=== PATIENT | female | born 1935 | race Caucasian/White ===

== ENCOUNTER → 2018-01-10 11:00 | Outpatient (CLI) | payer MEDICARE, SELFPAY | PROVIDERS: PCP Specialist/Technologist Athletic Trainer; Visit Provider Nurse Practitioner Family | DX: Z45.018 Encounter for adjustment and management of other part of cardiac pacemaker (principal); I48.0 Paroxysmal atrial fibrillation; I49.5 Sick sinus syndrome; Z79.01 Long term (current) use of anticoagulants; I12.9 Hypertensive chronic kidney disease with stage 1 through stage 4 chronic kidney disease, or unspecified chronic kidney disease; N18.3 Chronic kidney disease, stage 3 (moderate) | CPT/HCPCS: 93280; 99213 ==

== ENCOUNTER → 2018-02-20 10:46 | Outpatient (BNVA) | payer MEDICARE, SELFPAY | PROVIDERS: Visit Provider Internal Medicine Interventional Cardiology | DX: Z95.0 Presence of cardiac pacemaker (principal); I48.91 Unspecified atrial fibrillation; I42.9 Cardiomyopathy, unspecified; I27.20 Pulmonary hypertension, unspecified; I12.9 Hypertensive chronic kidney disease with stage 1 through stage 4 chronic kidney disease, or unspecified chronic kidney disease | CPT/HCPCS: 99213 ==

== ENCOUNTER 2018-04-26 10:54 | Outpatient (REF) | payer MEDICARE, SELFPAY ==
[2018-04-26 20:12] LABS: Anion Gap 9.4 mmol/L (3-11); BUN 35 mg/dL (7-18); CO2 26.6 mmol/L (21.0-32.0); CREATININE 1.31 mg/dL (0.55-1.02); Chloride 105 mmol/L (98-107); Estimated GFR 38.87 (mL/min/1.73m2); Glucose 63 mg/dL (70-100); Potassium 3.7 mmol/L (3.5-5.1); Sodium 141 mmol/L (136-145)
== END 2018-04-26 11:14 ==
LOC: NCHCN 10:54
PROVIDERS: PCP Specialist/Technologist Athletic Trainer; Visit Provider Specialist/Technologist Athletic Trainer
DX: N18.3 Chronic kidney disease, stage 3 (moderate) (principal); I10 Essential (primary) hypertension; J45.40 Moderate persistent asthma, uncomplicated; B86 Scabies
CPT/HCPCS: 80048

== ENCOUNTER 2018-05-25 10:02 | Outpatient (REF) | payer MEDICARE, SELFPAY ==
--- NOTE | 2018-05-25 09:15 | SKI_PTH ---
PATIENT: Antonia Win LOC: [facility] U#:[id number] AGE/SX: 83/F ROOM: RE05/25/[address]: Fran Self : 1935 BED: DIS: 05/25/2018 SPEC #: [id number] RECD: 05/26/18 12:57 STATUS: FELICIA REQ #: [id number] ELBA: 05/25/18 09:[address]: Fran Self DEPT: Surgical Specimen RECD BY: Teresita Maldonado Tissues: 1 - SKIN BIOPSY(SHAVE/PUNCH) Procedures: SKIN LEVEL 4 Comments: [id number]
== END 2018-05-25 10:22 ==
LOC: NCHCN 10:02
PROVIDERS: PCP Specialist/Technologist Athletic Trainer; Visit Provider Specialist/Technologist Athletic Trainer
DX: L98.8 Other specified disorders of the skin and subcutaneous tissue (principal); L12.0 Bullous pemphigoid
CPT/HCPCS: 88305

== ENCOUNTER → 2018-07-04 11:17 | Outpatient (BNVA) | payer MEDICARE, SELFPAY | PROVIDERS: PCP Specialist/Technologist Athletic Trainer; Visit Provider Nurse Practitioner Primary Care | DX: I49.5 Sick sinus syndrome (principal); I48.0 Paroxysmal atrial fibrillation; I42.9 Cardiomyopathy, unspecified; I27.20 Pulmonary hypertension, unspecified; I12.9 Hypertensive chronic kidney disease with stage 1 through stage 4 chronic kidney disease, or unspecified chronic kidney disease; R55 Syncope and collapse; Z45.018 Encounter for adjustment and management of other part of cardiac pacemaker; N18.3 Chronic kidney disease, stage 3 (moderate) | CPT/HCPCS: 93288; 99214 ==

== ENCOUNTER 2018-08-14 10:35 | Outpatient (CLI) | payer MEDICARE, SELFPAY | END 2018-08-14 10:55 | PROVIDERS: PCP Specialist/Technologist Athletic Trainer; Visit Provider Internal Medicine Interventional Cardiology | DX: Z95.0 Presence of cardiac pacemaker (principal); I48.91 Unspecified atrial fibrillation; I42.9 Cardiomyopathy, unspecified; I27.20 Pulmonary hypertension, unspecified; I10 Essential (primary) hypertension | CPT/HCPCS: 93005; 93010; 99213 ==

== ENCOUNTER 2018-09-01 08:47 | Inpatient (IN) | payer MEDICARE, SELFPAY ==
[2018-09-01] VITALS (88 sets, daily range): BP systolic 105–164; BP diastolic 44–90; PULSE 51–108; RESP 4–34; TEMP 35.6–37.1; O2SAT 84–97
[2018-09-01] MEDS: Normal Saline Flush 10 ML SYR IVP (09:00)
--- NOTE | 2018-09-01 09:09 | ED.GENADUL_ITS ---
Discharge Plan Disposition Patient Disposition: [facility] INPATIENT Condition: Fair Discharge Details Chief Complaint: SOB Clinical Impression: Pneumonia, Acute exacerbation of congestive heart failure, Hypercalcemia Admit Date/Time: 09/01/18 11:46 Admit Provider: Erasmo Woods Attending Provider: Erasmo Woods Primary Care Provider: Fran Self ED Provider: Charis Evans Medical Decision Making 0910 -- 83-year-old female with history of thoracic aortic aneurysm repair, asthma, CHF, COPD, pacemaker and defibrillator who presents with shortness of breath for 1 week, worse with exertion and associated with dry cough. She also admits to left-sided chest pressure. She denies fever. Oxygen saturation high 80s on room air. Patient in mild to moderate respiratory distress with tachypnea and accessory muscle use and speaking in 3-4 word sent ences. She has coarse breath sounds with wheezing and rhonchi to the right chest. No lower extremity edema. EKG notes a rate of 78 and paced and no acute ST findings. Differential diagnosis includes pneumonia, acute CHF exacerbation, acute COPD exacerbation, NM. Will place an IV, labs, chest x-ray, DuoNeb, steroids and reassess. Advance directives from pcp office note pt is DNI, not DNR and wants CPR. 1000 -- Pt feels a little better. Still speaking in 4-5 word sentences. Breath sounds improved, still with scattered wheezing right chest. Patient admits to feeling more short of breath while receiving neb treatment. Will give a second albuterol with aerogen jet mist. Labs and imaging reviewed. White blood cell count 12. Calcium 11.6. BNP 2537. Troponin negative. Chest x-ray notes a right-sided pneumonia. Also question acute CHF along with elevated BNP. Will give another bolus 250 cc fluid for hypercalcemia. Patient demonstrates no altered mental status at this time. O2 sat 97% on 2 L. Patient taken off O2 and O2 sat 92%. Patient takes 20 mg of Lasix every other day, last taken yesterday. Will give a dose of 40 mg Lasix IV. Rocephin and Zithromax ordered. Will admit for continued nebs, steroids and recheck of her calcium. 1030 -- patient denies significant relief with second neb treatment. She still has some labored breathing and speaking in short sentences. Breath sounds improved. O2 sat 91% on room air. She does appear more comfortable but will still plan for admission for continued nebs and observation. 1115 -- d/w hospitalist - accepts pt for admission. Medical Records Medical records reviewed: Yes I reviewed the patient's medical records. Imaging Data Radiologic Study: Radiologist's impression: PA AND LATERAL CHEST: The current examination is compared with most recent film of 10/09/17 and previous film of 03/05/16. Heart is enlarged. There is a transvenous cardiac pacemaker in position. There are sternal sutures and mediastinal vascular clips. In comparison with the previous examination, there appears to be increased radiodensity involving portions of the right lung with a patchy or fluffy appearance. The findings are suspicious for pneumonia. Asymmetric CHF not excluded. No gross pleural effusion is seen. CONCLUSION: Findings raising the possibility of right sided pneumonia. Lab Data Lab results reviewed: Yes I reviewed the patient's lab results. Laboratory Tests Range/Units 09/01/18 09/01/18 09:00 09:00 WBC (4.4-10.8) k/cumm 12.94 H RBC (4.00-5.20) m/cumm 4.39 Hgb (12.0-15.5) g/dL 12.6 Hct (36.0-46.0) % 40.9 MCV (80-95) fL 93.2 MCH (27.0-33.0) pg 28.7 MCHC (32.0-36.0) g/dL 30.8 L RDW (11.7-14.6) % 15.6 H Plt Count (130-400) x1000/uL 395 MPV (8.0-11.0) fL 9.1 Immature Gran % 0.5 Neutrophils % 84.3 Lymphocytes % 7.8 Monocytes % 5.3 Eosinophils % 1.9 Basophils % 0.2 Absolute Neutrophils (1.2-6.7) k/cumm 10.91 H Absolute Lymphocytes (1.2-3.4) k/cumm 1.01 L Absolute Monocytes (0.11-0.7) k/cumm 0.69 Absolute Eosinophils (0.0-0.7) k/cumm 0.25 Absolute Basophils (0.0-0.2) k/cumm 0.03 Sodium (136-145) mmol/L 138 Potassium (3.5-5.1) mmol/L 4.0 Chloride (98-107) mmol/L 101 Carbon Dioxide (21.0-32.0) mmol/L 23.5 Anion Gap (3-11) mmol/L 13.5 H BUN (7-18) mg/dL 37 H Creatinine (0.55-1.02) mg/dL 1.97 H Estimated GFR/1.73 m2 (mL/min/1.73m2) 24.27 Glucose (70-100) mg/dL 86 Calcium (8.5-10.1) mg/dL 11.6 H* Magnesium (1.8-2.4) mg/dL 2.2 Total Bilirubin (0.2-1.0) mg/dL 0.4 AST (15-37) U/L 28 ALT (12-78) U/L 15 Alkaline Phosphatase (46-116) U/L 130 H Troponin I (0.00-0.06) ng/mL < 0.02 NT-Pro-B Natriuret Pep ( - 299) pg/mL 2537 H Total Protein (6.4-8.2) g/dL 8.8 H Albumin (3.4-5.0) g/dL 2.6 L ECG Data Attestation: I personally reviewed and interpreted this ECG (s) as follows: Interpretation: Rate of 78, paced. No acute ST findings. QTc 435. QRS 106. HPI General Mode of arrival: ambulatory . Date/Time Provider Initiated Documentation: 09/01/18 08:55 . Limitations to Documentation: no limitations . Information obtained by: patient . HPI Narrative: Patient is a an 83-year-old female with a history of thoracic aortic aneurysm repair, asthma, CHF, COPD, hypertension, atrial fibrillation, pacemaker and a fibrillator who presents with shortness of breath for the past 4 days. She states this is worse with exertion. She also admits to dry cough. She also admits to intermittent left- sided chest pressure. She denies any fever. States she has been eating and drinking normally. She states she was recently on antibiotics for a diffuse body rash that she is unsure of the diagnosis but was seen by Dr. Colindres and thinks it was possibly bullous pemphigoid. She was also on 4 rounds of steroids recently and now is receiving one steroid injection once weekly. She is unable to receive the flu shot due to allergic reaction to eggs. Related Data Home Medications Medication Instructions Recorded Confirmed Eliquis 2.5 mg PO BID tab-cap 09/17/16 09/01/18 Flovent HFA 110 mcg INHALATION Q4H PRN inhaler 09/17/16 09/01/18 Lamin-24 100 - 300 mg PO BID tab-cap 09/17/16 09/01/18 amiodarone 100 mg PO DAILY tab-cap 09/17/16 09/01/18 clonidine HCl 0.1 mg PO BID tab-cap 09/17/16 09/01/18 lisinopril 40 mg PO DAILY tab-cap 09/17/16 09/01/18 metoprolol tartrate 25 mg PO BID tab-cap 09/17/16 09/01/18 potassium chloride [Klor-Con 10] 10 meq PO DAILY tab-cap 09/17/16 09/01/18 silver sulfadiazine [Thermazene] 50 gm TOPICAL DAILY tube 09/17/16 09/01/18 furosemide 20 mg tablet 20 mg PO Q OTHER DAY tab-cap 08/14/18 09/01/18 betamethasone dipropionate 1 applic TOPICAL BID 09/01/18 09/01/18 calcium carbonate [Calcium 600] 600 mg PO BID 09/01/18 09/01/18 cholecalciferol (vitamin D3) 2,000 unit PO DAILY 09/01/18 09/01/18 [Vitamin D3] fluticasone furoate-vilanterol 1 inh INHALATION DAILY 09/01/18 09/01/18 [Breo Ellipta] hydralazine 10 mg PO BID 09/01/18 09/01/18 ivermectin 12 mg PO DIRECTED 09/01/18 09/01/18 Allergies Allergy/AdvReac Type Severity Reaction Status Date / Time adhesive Allergy Unverified 09/01/18 08:58 gluten Allergy Unverified 09/01/18 08:58 pork derived (porcine) Allergy Unverified 09/01/18 08:58 coumadin Allergy Uncoded 09/01/18 08:58 dairy Allergy Uncoded 09/01/18 08:58 eggs Allergy Uncoded 09/01/18 08:58 flu vaccine Allergy Uncoded 09/01/18 08:58 tape Allergy Uncoded 09/01/18 08:58 General Stated Complaint: SOB WESLEY: 2 Review of Systems Review of Systems All systems reviewed & are unremarkable except as noted in HPI and below Constitutional Reports as per HPI, Denies chills and Denies fever(s) Eyes Denies blurry vision ENT Denies dizziness, Denies sore throat and Denies throat swelling Cardiovascular Reports chest pain and Reports dyspnea Respiratory Denies cough and Reports dyspnea Gastrointestinal Denies abdominal pain, Denies diarrhea and Denies vomiting Genitourinary Denies hematuria and Denies dysuria Musculoskeletal Denies back pain and Denies numbness Integumentary/Breasts Denies lesions and Denies rash Neurologic Denies dizziness, Denies focal weakness and Denies numbness Allergic/Immunologic Denies throat swelling [facility] Medical History Chronic kidney disease (Acute) Asthma (Chronic) Atrial fibrillation (Chronic) CHF (congestive heart failure) (Chronic) COPD (chronic obstructive pulmonary disease) (Chronic) Depression (Chronic) HTN (hypertension) (Chronic) Surgical History AICD (automatic cardioverter/defibrillator) present (Acute) H/O thoracic aortic aneurysm repair (Acute) Pacemaker (Acute) Social History Smoking/Tobacco Use Status: Never Alcohol Intake: never Substance use type: does not use Do you feel safe at home: Yes Do you feel safe in your relationship?: Yes Exam Const General: cooperative and acute distress respiratory (mild-moderate) [facility] Head: normal to inspection Face and sinus: normal facial exam Mouth: mucous membranes dry Throat: postnasal drainage (thick white mucous) Eyes General: appearance normal, both eyes and all related structures EOM: EOM intact bilaterally Neck Neck: normal visual inspection and No submandibular swelling Lymphatic: no lymphadenopathy noted Chest Chest: normal inspection of the chest and no tenderness Resp Effort & Inspection: normal respiratory effort and able to speak in complete sentences (speaks in 4-5 word sentences) Auscultation: rhonchi right upper and wheezes right lower and right upper Cardio Rate: regular rate Rhythm: regular rhythm GI Inspection: normal to inspection Palpation: soft, not firm, not rigid and nontender Auscultation: normal bowel sounds Skin General skin exam: no rashes or lesions noted Neuro General: alert, awake and oriented x3 Cognition: normal cognition Speech: speech normal Motor: muscle tone normal throughout Sensory Exam: no sensory deficits noted Extrem General: normal to inspection, full ROM and no edema Psych Appearance: grossly normal Mental Status: mental status grossly normal Speech and Movement: speech and movement normal Affect: normal affect Course Vital Signs Temperature 97.9 F 09/01/18 08:50 Pulse 81 09/01/18 08:50 Respiratory Rate 26 H 09/01/18 08:50 Blood Pressure 146/65 H 09/01/18 08:50 Pulse Oximetry 92 L 09/01/18 08:50 Temperature 97.9 F 09/01/18 08:50 Temperature Source Temporal Artery Scan 09/01/18 08:50 Pulse 81 09/01/18 08:50 Respiratory Rate 26 H 09/01/18 08:50 Respiratory Effort 09/01/18 08:55 Blood Pressure 146/65 H 09/01/18 08:50 Pulse Oximetry 92 L 09/01/18 08:50 Oxygen Delivery Method Room Air 09/01/18 08:50 Oxygen Flow Rate 0 09/01/18 08:50 Pain Level 0 09/01/18 08:50
[2018-09-01] MEDS: Albuterol/Ipratropium 3 ML UPD VIAL UPD (09:16)
[2018-09-01] MEDS: methylPREDNISolone SUCC 125 MG VIAL IVP (09:18)
[2018-09-01 09:21] LABS: Abs Immature Grans 0.06 k/cumm (0.0-0.09); Absolute Lymphocyte Count 1.01 k/cumm (1.2-3.4); Absolute Monocyte Count 0.69 k/cumm (0.11-0.7); Basophils % 0.2; Eosinophils % 1.9; HCT 40.9 % (36.0-46.0); HGB 12.6 g/dL (12.0-15.5); Immature Grans % 0.5; Lymphocytes % 7.8; Mean Corp. HGB Concentration 30.8 g/dL (32.0-36.0); Mean Corpuscular Hemoglobin 28.7 pg (27.0-33.0); Mean Corpuscular Volume 93.2 fL (80-95); Mean Platelet Volume 9.1 fL (8.0-11.0); Monocytes % 5.3; Neutrophils % 84.3; Platelet Count 395 x1000/uL (130-400); RBC 4.39 m/cumm (4.00-5.20); RBC Distribution Width 15.6 % (11.7-14.6); White Blood Cell Count 12.94 k/cumm (4.4-10.8)
[2018-09-01 09:22] LABS: Absolute Basophil Count 0.03 k/cumm (0.0-0.2); Absolute Eosinophil Count 0.25 k/cumm (0.0-0.7); Absolute Neutrophil Count 10.91 k/cumm (1.2-6.7)
[2018-09-01 09:40] LABS: ALT 15 U/L (12-78); AST 28 U/L (15-37); Albumin 2.6 g/dL (3.4-5.0); Alkaline Phosphatase 130 U/L (46-116); Anion Gap 13.5 mmol/L (3-11); BUN 37 mg/dL (7-18); Bilirubin, Total 0.4 mg/dL (0.2-1.0); CO2 23.5 mmol/L (21.0-32.0); CREATININE 1.97 mg/dL (0.55-1.02); Chloride 101 mmol/L (98-107); Estimated GFR 24.27 (mL/min/1.73m2); Glucose 86 mg/dL (70-100); Magnesium 2.2 mg/dL (1.8-2.4); NT-proBNP 2537 pg/mL; Sodium 138 mmol/L (136-145); Total Protein 8.8 g/dL (6.4-8.2)
[2018-09-01 09:48] LABS: Calcium 11.6 mg/dL (8.5-10.1); Troponin I < 0.02 ng/mL (0.00-0.06)
[2018-09-01] MEDS: Normal Saline 250 ML IV (10:13)
[2018-09-01] MEDS: Furosemide 40 MG/4 ML VIAL IVP (10:18)
[2018-09-01] MEDS: cefTRIAXone 1 GM/50 ML BAG IVPB (10:19)
[2018-09-01] MEDS: Albuterol 2.5 MG/3 ML INH SOLN VIAL (10:31)
[2018-09-01] MEDS: AZITHROMYCIN 500 MG in Normal Saline 250 ML 250 MG IVPB (10:54)
--- NOTE | 2018-09-01 12:02 | PDOC.ERCMPRO ---
Care Management Progress Note 09/01-Antonia is being admitted for pneumonia and CHF. This CM met with Antonia. Antonia is an 83 year old female who lives with her daughter Orly in [place]. Antonia is normally independent, no DME and no services. Antonia does not drive. Fran Self is her PCP. Patient has Medicare and AARP. Antonia has advance directives on file and daughter Orly is her DPOA. Antonia has two steps to get into the house. Her daughter Orly has moved her to the first floor so now everything she needs is on one floor. Discussed Palliative Care Consult with Antonia. Antonia would like to discuss with her daughter Orly. No services or equipment are anticipated at discharge. Inpatient Care Management will follow.
--- NOTE | 2018-09-01 15:45 | HPE_ITS ---
Date of service: 09/01/18 Time of Service: 15:27 Assessment and Plan (1) Pneumonia: Current visit: Yes Status: Acute Likely diagnosis of pneumonia based on symptoms and imaging. Will initiate antibiotic therapy for likely CAP. If antibiotic failure consider broadening regimen as Mrs. Win visits her who is a [facility] patient on a daily basis. Initiated therapy with ceftriaxone and azithromycin. Monitor QT closely as patient is also on amiodarone chronically. Check blood cultures, duo nebs on an as-needed basis. (2) ZAFAR (acute kidney injury): Current visit: Yes Status: Acute ZAFAR in setting of CKD, potentially prerenal in etiology in setting of acute illness. Patient did receive IV Lasix in the ED - will attempt to hydrate very gently in the setting of mild underlying CHF, and monitor volume status carefully. Renally dose medications, and avoid nephrotoxins. (3) Hypertension: Current visit: Yes Status: Chronic (4) PAF (paroxysmal atrial fibrillation): Current visit: Yes Status: Chronic Maintained on antiarrhythmic therapy with amiodarone, as well as BB therapy. Continue anticoagulation with apixaban - patient has an elevated creatinine and is under 60 kg, qualifies for decreased dosing. Maintain on telemetry for now. 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 Elevated BNP, but patient does not appear to be grossly volume overloaded by exam or imaging (although with asymmetric CHF being a possibility). Will continue home regimen of furosemide, but hold YOBANY-I in s etting of ZAFAR. Continue beta-eden as well. (6) DVT prophylaxis: Current visit: Yes Status: Acute Currently on anticoagulation with low-dose apixaban. Initiate PPI therapy for GI prophylaxis as well. (7) Advance directive on file: Current visit: Yes Status: Acute Confirmed DNI, but patient would like resuscitation in the form of CPR. Will discuss further when family is available as well. History of Present Illness Narrative: Pleasant 83-year-old woman with a prior history of asthma, CHF, and PAF, being admitted from [facility] emergency departments with diagnosis of pneumonia and ZAFAR. Mrs. Win has a past medical history significant for CHF with an LVEF of 45 to 50%, as well as mention of diastolic dysfunction by prior echo. She has a history of paroxysmal AFib currently in sinus rhythm while maintained on antiarrhythmic therapy with amiodarone, and on chronic anticoagulation. Her other history includes tachybradycardia syndrome s/p dual-chamber PPM placement in 2016, CKD, asthma, HTN, and PHTN. Review of her labs indicate a mild hypercalcemia in the past, unknown of the origin or prior work-up of this. The patient presented to the ED with reported shortness of breath, starting approximately 5 days ago. She also associated her dyspnea with a dry cough. Upon presentation to the ED she was found to be hypoxic, tachypneic, and tachycardic. Her EKG was found to be nonischemic, and her initial troponin was undetectable. Her work-up was remarkable for evidence of a right-sided infiltrate by chest x-ray, interpreted as likely pneumonia, as well as a mild leukocytosis and elevated creatinine from baseline. Her calcium was also noted to be high. She was referred for admission for further evaluation and treatment. Review of Systems Review of Systems All systems reviewed & are unremarkable except as noted in HPI and below PFSH Medical History Hypercalcemia (Chronic) CHF (congestive heart failure) (Chronic) Presence of permanent cardiac pacemaker (Chronic) PAF (paroxysmal atrial fibrillation) (Chronic) Hypertension (Chronic) Pulmonary hypertension (Chronic) Asthma (Chronic) CKD (chronic kidney disease) (Chronic) Chronic kidney disease (Acute) Asthma (Chronic) Atrial fibrillation (Chronic) CHF (congestive heart failure) (Chronic) COPD (chronic obstructive pulmonary disease) (Chronic) Depression (Chronic) HTN (hypertension) (Chronic) Surgical History History of thoracic aortic aneurysm repair (Chronic) AICD (automatic cardioverter/defibrillator) present (Acute) H/O thoracic aortic aneurysm repair (Acute) Pacemaker (Acute) Social History Smoking/Tobacco Use Status: Never Alcohol Intake: never Substance use type: does not use Do you feel safe at home: Yes Do you feel safe in your relationship?: Yes Meds Home Medications Medication Instructions Recorded Confirmed Type Eliquis 2.5 mg PO BID tab-cap 09/17/16 09/01/18 History Flovent HFA 110 mcg INHALATION Q4H PRN inhaler 09/17/16 09/01/18 History Lamin-24 100 - 300 mg PO BID tab-cap 09/17/16 09/01/18 History amiodarone 100 mg PO DAILY tab-cap 09/17/16 09/01/18 History clonidine HCl 0.1 mg PO BID tab-cap 09/17/16 09/01/18 History lisinopril 40 mg PO DAILY tab-cap 09/17/16 09/01/18 History metoprolol tartrate 25 mg PO BID tab-cap 09/17/16 09/01/18 History potassium chloride [Klor-Con 10] 10 meq PO DAILY tab-cap 09/17/16 09/01/18 History silver sulfadiazine [Thermazene] 50 gm TOPICAL DAILY tube 09/17/16 09/01/18 History furosemide 20 mg tablet 20 mg PO Q OTHER DAY tab-cap 08/14/18 09/01/18 History betamethasone dipropionate 1 applic TOPICAL BID 09/01/18 09/01/18 History calcium carbonate [Calcium 600] 600 mg PO BID 09/01/18 09/01/18 History cholecalciferol (vitamin D3) 2,000 unit PO DAILY 09/01/18 09/01/18 History [Vitamin D3] fluticasone furoate-vilanterol 1 inh INHALATION DAILY 09/01/18 09/01/18 History [Breo Ellipta] hydralazine 10 mg PO BID 09/01/18 09/01/18 History ivermectin 12 mg PO DIRECTED 09/01/18 09/01/18 History Allergies Allergy/AdvReac Type Severity Reaction Status Date / Time adhesive Allergy Unverified 09/01/18 08:58 gluten Allergy Unverified 09/01/18 08:58 pork derived (porcine) Allergy Unverified 09/01/18 08:58 coumadin Allergy Uncoded 09/01/18 08:58 dairy Allergy Uncoded 09/01/18 08:58 eggs Allergy Uncoded 09/01/18 08:58 flu vaccine Allergy Uncoded 09/01/18 08:58 tape Allergy Uncoded 09/01/18 08:58 Exam Narrative Exam Narrative: General: Patient appears comfortable, AAOX3, NAD Neck: Supple CV: Regular, nontachycardic, S1S2, 3/6 LLSB murmurs. Pulmonary: Area of decreased breath sounds with mild crackles and rhonchi at the right base Abdomen: + Bowel Sounds, soft, nontender, nondistended Vascular: No lower extremity edema Neurologic: CN II-XII grossly intact. No focal deficits. Psych: Normal mood and affect. Results Labs : 09/01/18 09:00 09/01/18 09:00 Laboratory Results - last 24 hr 09/01/18 09/01/18 09:00 09:00 WBC 12.94 H RBC 4.39 Hgb 12.6 Hct 40.9 MCV 93.2 MCH 28.7 MCHC 30.8 L RDW 15.6 H Plt Count 395 MPV 9.1 Immature Gran % 0.5 Neutrophils % 84.3 Lymphocytes % 7.8 Monocytes % 5.3 Eosinophils % 1.9 Basophils % 0.2 Absolute Neutrophils 10.91 H Absolute Lymphocytes 1.01 L Absolute Monocytes 0.69 Absolute Eosinophils 0.25 Absolute Basophils 0.03 Sodium 138 Potassium 4.0 Chloride 101 Carbon Dioxide 23.5 Anion Gap 13.5 H BUN 37 H Creatinine 1.97 H Estimated GFR/1.73 m2 24.27 Glucose 86 Calcium 11.6 H* Magnesium 2.2 Total Bilirubin 0.4 AST 28 ALT 15 Alkaline Phosphatase 130 H Troponin I < 0.02 NT-Pro-B Natriuret Pep 2537 H Total Protein 8.8 H Albumin 2.6 L Last Vital Signs Temp 37.1 C 09/01/18 13:20 Pulse 85 09/01/18 13:20 Resp 26 H 09/01/18 13:30 BP 137/45 L 09/01/18 13:20 Pulse Ox 94 L 09/01/18 13:30
[2018-09-01] MEDS: Normal Saline 1,000 ML 75 ML IV (17:34)
[2018-09-01] MEDS: DOXYCYCLINE 100 MG in Normal Saline 100 ML IVPB (17:52)
[2018-09-01] MEDS: hydrALAZINE 25 MG TAB 10 MG PO (20:20)
[2018-09-01] MEDS: cloNIDine 0.1 MG TAB PO (20:20)
[2018-09-01] MEDS: Metoprolol 25 MG TAB PO (20:20)
[2018-09-01] MEDS: Apixaban 2.5 MG TAB PO (20:20)
[2018-09-01] MEDS: Acetaminophen 325 MG TAB PO (23:21)
[2018-09-02] VITALS (27 sets, daily range): BP systolic 118–178; BP diastolic 53–84; PULSE 60–97; RESP 16–32; TEMP 36.4–37.8; O2SAT 85–93
[2018-09-02] MEDS: DOXYCYCLINE 100 MG in Normal Saline 100 ML IVPB ×2 (05:39→18:03)
[2018-09-02 06:44] LABS: Anion Gap 12.5 mmol/L (3-11); BUN 49 mg/dL (7-18); CO2 20.5 mmol/L (21.0-32.0); CREATININE 2.11 mg/dL (0.55-1.02); Calcium 10.5 mg/dL (8.5-10.1); Chloride 103 mmol/L (98-107); Estimated GFR 22.42 (mL/min/1.73m2); Glucose 118 mg/dL (70-100); Potassium 4.5 mmol/L (3.5-5.1); Sodium 136 mmol/L (136-145)
[2018-09-02 06:45] LABS: Abs Immature Grans 0.06 k/cumm (0.0-0.09); Absolute Lymphocyte Count 0.84 k/cumm (1.2-3.4); Absolute Monocyte Count 0.41 k/cumm (0.11-0.7); Basophils % 0.1; Eosinophils % 0.1; HCT 37.4 % (36.0-46.0); HGB 11.7 g/dL (12.0-15.5); Immature Grans % 0.3; Lymphocytes % 4.5; Mean Corp. HGB Concentration 31.3 g/dL (32.0-36.0); Mean Corpuscular Hemoglobin 28.8 pg (27.0-33.0); Mean Corpuscular Volume 92.1 fL (80-95); Mean Platelet Volume 9.1 fL (8.0-11.0); Monocytes % 2.2; Neutrophils % 92.8; Platelet Count 382 x1000/uL (130-400); RBC 4.06 m/cumm (4.00-5.20); RBC Distribution Width 15.4 % (11.7-14.6); White Blood Cell Count 18.59 k/cumm (4.4-10.8)
[2018-09-02 06:49] LABS: Absolute Basophil Count 0.02 k/cumm (0.0-0.2); Absolute Eosinophil Count 0.02 k/cumm (0.0-0.7); Absolute Neutrophil Count 17.25 k/cumm (1.2-6.7)
[2018-09-02] MEDS: cefTRIAXone 1 GM/50 ML BAG IVPB (07:02)
[2018-09-02] MEDS: Apixaban 2.5 MG TAB PO ×2 (09:05→19:43)
[2018-09-02] MEDS: cloNIDine 0.1 MG TAB PO ×2 (09:05→19:43)
[2018-09-02] MEDS: Normal Saline Flush 10 ML SYR IVP ×3 (09:05→18:03)
[2018-09-02] MEDS: Calcium Carbonate 1.5 GM TAB PO (09:05)
[2018-09-02] MEDS: hydrALAZINE 10 MG TAB (09:05)
[2018-09-02] MEDS: Pantoprazole 40 MG VIAL IVP (09:05)
[2018-09-02] MEDS: Metoprolol 25 MG TAB PO ×2 (09:06→19:43)
[2018-09-02] MEDS: Amiodarone 200 MG TAB 100 MG PO (09:06)
--- NOTE | 2018-09-02 10:18 | PDOC.CMIN ---
Care Management Initial Assess REASON FOR HOSPITALIZATION:: Pneumonia, CHF PAST MEDICAL HISTORY/PAST SURGICAL HISTORY:: ZAFAR, Pneumonia, DVT, Hypercalcemia, CHF, permanent cardiac pacemaker, PAF, thoracic aortic aneurysm repair, hypertension, pulmonary hypertension, asthma, CKD, asthma, Depression, COPD, Afib PREVIOUS FUNCTIONAL STATUS/SOCIAL/FAMILY SUPPORTS:: Antonia resides with her daughter Orly in [place], [place] she has a room on ground level and two steps into her home. Her , Adolfo resides at [facility] in [place], [place]. Antonia sees him almost daily and reports he suffers from advanced dementia and currently believes he is living on the farm he [place] up on at [age] years old. Antonia is normally independent, no DME and no services. Antonia does not drive and shares that Fran Self recommended she no longer drive though this bothers her much as she has to depend on her daughter to transport her to [place] daily. Antonia shares that her and Adolfo spent m[place] in [place] since 1981 and traveled around in [place] prior to settling with their daughter so Adolfo could recieve fdc care for his progressing illness. CURRENT FUNCTIONAL STATUS:: Antonia is sitting up in her chair, oxygen on when CM meets with her. She shares that she does not use oxygen at baseline and follows a gluten free diet. She is quite pleasant in interaction and forthcoming with information. ADVANCE DIRECTIVES:: On file; Orly as POA and HC Agent, Jodee as alternate Has patient been provided with information about the portal?: Yes Did the patient sign up for the portal?: No CODE STATUS:: DNI INSURANCE COVERAGE / FINANCIAL ISSUES:: Medicare. AARP Plan F CURRENT HOME/COMMUNITY SERVICES/EQUIPMENT:: No current services or equipment. Antonia is normally independent, no DME and no services. PRIMARY CARE PHYSICIAN:: [facility] POTENTIAL DISCHARGE NEEDS:: Magy; ED CM discussed Palliative Care Consult with Antonia. Antonia would like to discuss with her daughter Orly. PATIENT/FAMILY EDUCATION NEEDS:: Review of discharge instructions, discuss Ask Me Three. ANTICIPATED BARRIERS TO DISCHARGE:: None identified at this time. TRANSPORTATION:: Via private vehicle with her daughter, Orly. PLAN:: Antonia will return home when ready per MD. She will follow up with her PCP and plan of care as prescribed-no additional services anticipated at this time. She will transport via private vehicle with her daughter, Orly.
--- NOTE | 2018-09-02 10:38 | INITIAL_ITS ---
Care Management Initial Assess REASON FOR HOSPITALIZATION:: Pneumonia, CHF PAST MEDICAL HISTORY/PAST SURGICAL HISTORY:: ZAFAR, Pneumonia, DVT, Hypercalcemia, CHF, permanent cardiac pacemaker, PAF, thoracic aortic aneurysm repair, hypertension, pulmonary hypertension, asthma, CKD, asthma, Depression, COPD, Afib PREVIOUS FUNCTIONAL STATUS/SOCIAL/FAMILY SUPPORTS:: Antonia resides with her daughter Orly in [place], [place] she has a room on ground level and two steps into her home. Her , Adolfo resides at [facility] in [place], [place]. Antonia sees him almost daily and reports he suffers from advanced dementia and currently believes he is living on the farm he [place] up on at [age] years old. Antonia is normally independent, no DME and no services. Antonia does not drive and shares that Fran Self recommended she no longer drive though this bothers her much as she has to depend on her daughter to transport her to [place] daily. Antonia shares that her and Adolfo spent m[place] in [place] since 1981 and traveled around in [place] prior to settling with their daughter so Adolfo could recieve custodial care for his progressing illness. CURRENT FUNCTIONAL STATUS:: Antonia is sitting up in her chair, oxygen on when CM meets with her. She shares that she does not use oxygen at baseline and follows a gluten free diet. She is quite pleasant in interaction and forthcoming with information. ADVANCE DIRECTIVES:: On file; Orly as POA and HC Agent, Jodee as alternate Has patient been provided with information about the portal?: Yes Did the patient sign up for the portal?: No CODE STATUS:: DNI INSURANCE COVERAGE / FINANCIAL ISSUES:: Medicare. AARP Plan F CURRENT HOME/COMMUNITY SERVICES/EQUIPMENT:: No current services or equipment. Antonia is normally independent, no DME and no services. PRIMARY CARE PHYSICIAN:: Fran Self: [facility] POTENTIAL DISCHARGE NEEDS:: Magy; ED CM discussed Palliative Care Consult with Antonia. Antonia would like to discuss with her daughter Orly. PATIENT/FAMILY EDUCATION NEEDS:: Review of discharge instructions, discuss Ask Me Three. ANTICIPATED BARRIERS TO DISCHARGE:: None identified at this time. TRANSPORTATION:: Via private vehicle with her daughter, Orly. PLAN:: Antonia will return home when ready per MD. She will follow up with her PCP and plan of care as prescribed-no additional services anticipated at this time. She will transport via private vehicle with her daughter, Orly.
--- NOTE | 2018-09-02 11:04 | PHARADMIT ---
Addendum entered by Norma Smith 09/11/18 16:50: Pharmacy Note Subjective Objective VS-okay Na-135 SCr-2.58(down) WBC-13.82(down) Assessment zosyn discontinued vanco and levofloxacin continue (day 5 of both; day 10 total abx- failed to improve initially) amiodarone and apixaban still on hold Plan possible discharge tomorrow decreased po steroid dose, outpatient follow up in pulmonary on Tuesday Addendum entered by Navin Mayes III 09/08/18 15:38: Pharmacy Note Subjective Patient on pass [place] [facility] [place]. MD questions whether chronic lung infection my be PCP. Objective VS-OK K+4.5 SCr-1.51 WBC-11.78 H&H,Plts Wgt-53.6kg BM yesterday Assessment Lasix drip continues. Amiodarone dc'd Zosyn,Vancomycin & Levaquin continue. Plan Watch I&Os, Vancomycin trough needed Addendum entered by Navin Mayes III 09/06/18 15:12: Pharmacy Note Subjective Chest X-Ray shows clearing on Left,but Persistent infiltrates on right lung. weight uP (55.1 kg) Lasix drip started Objective VS-OK K+3.6 SCr-1.75 WBC-14.88 H&H-12.1/39.1 had BM Assessment Hydrocortisone tapered to 25mg IV BID, No aspiration, per speech, Zosyn continues. Plan NO NEW MD NOTE YET Addendum entered by Norma Smith 09/04/18 16:29: Pharmacy Note Subjective possible adrenal insufficiency per MD Objective VS-okay SCr-1.52(down) WBC-13.34(down) Assessment hydrocortisone changed to 50 mg bid zosyn continues (day 2) apixaban resumed Plan watch for lab results (cortisol) Addendum entered by Marilyn Ivy 09/03/18 11:26: Pharmacy Note Subjective transferred ICU to [place], EF 45-50% Objective BP 189/84, Afebrile now, temp last night 37.8, lytes ok, SCr improved 1.77 (CrCl~17.6ml/min) weight up 4.1kg overnight-MDaware, WBC up 19.6 Calcium down a little 10.4 Assessment Doxy & Rocephin dc'd....changed to Zosyn, MD thinks possible aspiration (interaction/contradindication w/Doxy and Zosyn-brought to MD attention) repeat chest xray today: bilateral lung disease, unchanged Lasix IV BID, off steroids, Protonix IV to oral due to shortage Calcium and Vit D dc'd MD mentions possible adrenal insufficiency-labs being done as sendouts Chronic hypertension, Afib (Apixiban, Amiodarone), off tele at this time Plan Palliative care consult, Echo ordered Original Note: Admission Pharmacy Clinical Review PNEUMONIA (CAP)/CHF Code Status DNI Current Weight 52.2 kg Renally Cleared and Narrow Therapeutic Index Meds CrCl~14.7ml/min QTc Value / Action Taken [id number] (Amiodarone) BP Control, Fever BP 149/78 Afebrile, on oxygen Electrolytes reviewed K+ 4.5, Mag 2.0, Ca++ high 10.5 (Chronic per H&P) Corrected calcium is 11.62 DVT Prophylaxis Apixiban 2.5mg po BID-Afib Opiate Usage / Scheduled Bowel Regimen Ordered Plt/SCr for Heparin / Enoxaparin Plt 382 SCr 2.11 INR for Warfarin H/H stable, WBC/Bands H/H 11.7/37.4 WBC 18.59 (up) Antibiotic appropriateness Rocephin/Doxy Azith IV x1 in ED (Qt prolongation) Cultures and Sensitivities NO MICRO Surgical ABX d/c within 24 hr DM control / Insulin Dosing Heart Failure (Check EF%) (YOBANY's, B-Block, Diuretics) Amiodarone, Clonidine, Furosemide, Hydralazine, Metoprolol IV to PO Switch Home Meds Reviewed Pt's own Breo Ellipta-upstairs in med cart Pt's own Silver Slfadizine-not here at this time, we can supply if needed, it's an old order on home med list Home Meds Not Ordered Calcium-dc'd...elevated Ca++ not ordered: Ivermectin, Lisinopril-held SCr, Potassium, Theophylline Comments tx to M/S, IVF's dc'd, BNP 2537 Watch weight, I/O, Anbx coverage Chest Xray: ?R sided Pneumonia
--- NOTE | 2018-09-02 12:31 | PT.INIE ---
Date of service: 09/02/18 Time of Service: 11:15 PT Notes Inpatient Physical Therapy Evaluation Date: 09/02/18 Referring Doctor: Constanza Schultz MD PT Orders: PT CONSULT: Eval/Treat Precautions: Standard Patient Profile/Admitting Diagnosis: Orders received for this 83-year-old female with a history of asthma however she was becoming more short of breath at home for the last 5 days. She has been admitted with community-acquired pneumonia and has been on oxygen supplementation and antibiotic treatment. PMHX: Medical History Hypercalcemia (Chronic) CHF (congestive heart failure) (Chronic) Presence of permanent cardiac pacemaker (Chronic) PAF (paroxysmal atrial fibrillation) (Chronic) Hypertension (Chronic) Pulmonary hypertension (Chronic) Asthma (Chronic) CKD (chronic kidney disease) (Chronic) Chronic kidney disease (Acute) Asthma (Chronic) Atrial fibrillation (Chronic) CHF (congestive heart failure) (Chronic) COPD (chronic obstructive pulmonary disease) (Chronic) Depression (Chronic) HTN (hypertension) (Chronic) Surgical History History of thoracic aortic aneurysm repair (Chronic) AICD (automatic cardioverter/defibrillator) present (Acute) H/O thoracic aortic aneurysm repair (Acute) Pacemaker (Acute) Social History/Home Situation: Patient lives with her daughter in [place] she has 2 steps in which to enter the home Equipment Owned/DME: Patient is independent in ambulation at baseline Subjective: Patient states she is doing fairly well having a little bit more of an improvement Objective: Patient sitting up in her chair with telemetry on and O2 supplementation delivered via nasal cannula Mental Status: Well oriented alert to person place and time Pain: 0 out of 10 ROM: Right Upper Extremity: Within functional limits Left Upper Extremity: Within functional limits Right Lower Extremity: Within functional limits Left Lower Extremity: Within functional limits Strength: Right Upper Extremity: Globally 4+ out of 5 Left Upper Extremity: Globally 4+ out of 5 Right Lower Extremity: Globally 4+ out of 5 Left Lower Extremity: Globally 4+ out of 5 Bed Mobility/Transfers: Unable to assess as patient is already sitting up in chair Sit-stand: Contact-guard assist Stand-sit: Contact-guard assist Gait: Ambulates up to 10 feet within the limits of her supplemental oxygen and telemetry lines with contact-guard assist Balance: Static Sitting: Normal Dynamic Sitting: Normal Static Standing: good Dynamic Standing: Fair Special Tests: Mobility Limitations Standardized Measure [facility]-PAC 6 clicks Basic Mobility Inpatient Short Form: Raw Score: 18 Standardized Score: 43.63 CMS Score: 46.58 CMS Modifier: CK Treatment: Patient taken through a series of upper and lower extremity exercises with corrective instructions see flow sheet for details Informed Consent/Education: Patient instructed in purpose of PT consult and plan of care. ASSESSMENT: Patient is a 83-year-old female with a history of good physical health Admitted with community-acquired pneumonia Patient presents with the following impairment level findings: Ambulation intolerance, mild difficulty with transferring, activity tolerance below baseline Pt will benefit from skilled therapy intervention in order to remedy their functional limitations and restore patient to a more appropriate and stable functional level. Impairments are contributing to the following functional limitations: AMPAC score 46.58 Patient is assessed as a moderate complexity initial evaluation [id number] based on the following: History: see above Examination: see above Presentation: Evolving Decision Making: Moderate based on the AMPAC score of 46.58% Goals: Goals X1 week 1. Supine-Sit independent and restored to baseline level 2. Sit-Supine independent and restored to baseline level 3. Sit-Stand independent and restored to baseline level 4. Stand-Sit independent and restored to baseline level 5. Bed-Chair independent and restored to baseline level 6. Gait independent up to 300 feet and restored to baseline level 7: Stairs up to 2 steps Plan of Care/Treatment Plan: 1-2x/day, 7 days/week x 1 week. Plan of care has been reviewed with the STAFF ANESTHESIOLOGIST providing the service under Physical Therapy direction. Initiate Physical Therapy intervention for strengthening, bed mobility, transfers, gait, stairs, balance training, use of assistive device. DISCHARGE RECOMMENDATIONS: To home once medically stable TREATMENT CODE/TIME: Moderate complexity initial evaluation [id number] 11:15am 15 minutes of direct patient care
--- NOTE | 2018-09-02 12:37 | IN_ITS ---
Date of service: 09/02/18 Time of Service: 11:15 PT Notes Inpatient Physical Therapy Evaluation Date: 09/02/18 Referring Doctor: Constanza Schultz MD PT Orders: PT CONSULT: Eval/Treat Precautions: Standard Patient Profile/Admitting Diagnosis: Orders received for this 83-year-old female with a history of asthma however she was becoming more short of breath at home for the last 5 days. She has been admitted with community-acquired pneumonia and has been on oxygen supplementation and antibiotic treatment. PMHX: Medical History Hypercalcemia (Chronic) CHF (congestive heart failure) (Chronic) Presence of permanent cardiac pacemaker (Chronic) PAF (paroxysmal atrial fibrillation) (Chronic) Hypertension (Chronic) Pulmonary hypertension (Chronic) Asthma (Chronic) CKD (chronic kidney disease) (Chronic) Chronic kidney disease (Acute) Asthma (Chronic) Atrial fibrillation (Chronic) CHF (congestive heart failure) (Chronic) COPD (chronic obstructive pulmonary disease) (Chronic) Depression (Chronic) HTN (hypertension) (Chronic) Surgical History History of thoracic aortic aneurysm repair (Chronic) AICD (automatic cardioverter/defibrillator) present (Acute) H/O thoracic aortic aneurysm repair (Acute) Pacemaker (Acute) Social History/Home Situation: Patient lives with her daughter in [place] she has 2 steps in which to enter the home Equipment Owned/DME: Patient is independent in ambulation at baseline Subjective: Patient states she is doing fairly well having a little bit more of an improvement Objective: Patient sitting up in her chair with telemetry on and O2 supplementation delivered via nasal cannula Mental Status: Well oriented alert to person place and time Pain: 0 out of 10 ROM: Right Upper Extremity: Within functional limits Left Upper Extremity: Within functional limits Right Lower Extremity: Within functional limits Left Lower Extremity: Within functional limits Strength: Right Upper Extremity: Globally 4+ out of 5 Left Upper Extremity: Globally 4+ out of 5 Right Lower Extremity: Globally 4+ out of 5 Left Lower Extremity: Globally 4+ out of 5 Bed Mobility/Transfers: Unable to assess as patient is already sitting up in chair Sit-stand: Contact-guard assist Stand-sit: Contact-guard assist Gait: Ambulates up to 10 feet within the limits of her supplemental oxygen and telemetry lines with contact-guard assist Balance: Static Sitting: Normal Dynamic Sitting: Normal Static Standing: good Dynamic Standing: Fair Special Tests: Mobility Limitations Standardized Measure [facility]-PAC 6 clicks Basic Mobility Inpatient Short Form: Raw Score: 18 Standardized Score: 43.63 CMS Score: 46.58 CMS Modifier: CK Treatment: Patient taken through a series of upper and lower extremity exercises with corrective instructions see flow sheet for details Informed Consent/Education: Patient instructed in purpose of PT consult and plan of care. ASSESSMENT: Patient is a 83-year-old female with a history of good physical health Admitted with community-acquired pneumonia Patient presents with the following impairment level findings: Ambulation intolerance, mild difficulty with transferring, activity tolerance below baseline Pt will benefit from skilled therapy intervention in order to remedy their functional limitations and restore patient to a more appropriate and stable functional level. Impairments are contributing to the following functional limitations: AMPAC score 46.58 Patient is assessed as a moderate complexity initial evaluation [id number] based on the following: History: see above Examination: see above Presentation: Evolving Decision Making: Moderate based on the AMPAC score of 46.58% Goals: Goals X1 week 1. Supine-Sit independent and restored to baseline level 2. Sit-Supine independent and restored to baseline level 3. Sit-Stand independent and restored to baseline level 4. Stand-Sit independent and restored to baseline level 5. Bed-Chair independent and restored to baseline level 6. Gait independent up to 300 feet and restored to baseline level 7: Stairs up to 2 steps Plan of Care/Treatment Plan: 1-2x/day, 7 days/week x 1 week. Plan of care has been reviewed with the FLOW NURSE providing the service under Physical Therapy direction. Initiate Physical Therapy intervention for strengthening, bed mobility, transfers, gait, stairs, balance training, use of assistive device. DISCHARGE RECOMMENDATIONS: To home once medically stable TREATMENT CODE/TIME: Moderate complexity initial evaluation [id number] 11:15am 15 minutes of direct patient care
--- NOTE | 2018-09-02 15:25 | PGE_ITS ---
Date of Service Date of service: 09/02/18 Time of Service: 15:18 Assessment and Plan (1) Pneumonia: Current visit: Yes Status: Acute Likely CAP. Continue rocephin and doxycycline as well as duonebs. Based on my clinical exam, I do not see evidence of using of steroids at this time (unless she is adrenally insufficient - we are checking). (2) CHF (congestive heart failure): Current visit: Yes Status: Chronic Evidence of both systolic and diastolic CHF by last echo in 2017, with an ejection fraction of 45 to 50%. I do think that there is fluid overload at this time - will give one dose of lasix 20 mg IV and monitor I/O's, weights, kidney function. (3) ZAFAR (acute kidney injury): Current visit: Yes Status: Acute ZAFAR in setting of CKD, but clinically fluid overloaded. Nursing reports that the patient does not void frequently and has been having abdominal distention - ?is she retaining urine - will check bladder scans. For now, clinical benefits of gentle diuresis outweigh risks. Continue to hold torie-i. (4) Hypertension: Current visit: Yes Status: Chronic not a clinical issue at this time (5) PAF (paroxysmal atrial fibrillation): Current visit: Yes Status: Chronic Maintained on antiarrhythmic therapy with amiodarone, as well as BB therapy. Continue anticoagulation with apixaban. Off tele. (6) Blisters of multiple sites: Current visit: Yes Status: Acute The patient states that she is under the care of a hemstitcher for this, which makes me question if she does not have bullous pemphigoid. Will obtain records. I do not see any evidence of active blisters at this time. (7) Hyperpigmentation: Current visit: Yes Status: Resolved Given the history of recent prolonged prednisone course, will obtain am cortisol to ensure that the patient is not adrenally insufficient. (8) Hypoxia: Current visit: Yes Status: Acute Diurese and treat Pneumonia. (9) Discharge planning issues: Current visit: Yes Status: Acute DNI. Palliative care consulted to discuss goals of care, per patient request. (10) DVT prophylaxis: Current visit: Yes Status: Acute Currently on anticoagulation with low-dose apixaban. Initiate PPI therapy for GI prophylaxis as well. (11) Advance directive on file: Current visit: Yes Status: Acute DNI. Patient is interested in talking about goals of her care - palliative care consu lted. Subjective Interval history since last seen: Ms Win states her breathing is not any better. She states her cough is not productive but that she feels like she has too much fluid on her. She also noted that her skin looks darker to her - and she is really alarmed by this. She had not noticed this before. She states that until recently, she was on a prolonged course of steroids. She thinks that her skin is getting darker because her asthma is acting up. She denies dizziness, chest pain, nausea, vomiting. She is not constipated, but complains of feeling like there is extra fluid in her abdomen. Exam Narrative Exam Narrative: General: Very pleasant, mildly anxious elderly female, sitting comfortably in a chair, A&Ox3, wearing 2L of O2 by NC. Skin: Dry; some bruising noted on LUE (AC fossa where she had blood taken; distally, there is a small bruise. ) I do not see any blisters that the patient states she had when she first came in. There is some hyperpigmentation indeed in her BUE's, but it looks chronic. There is mild ichthiosis of BLE's with some grayish discoloration as well. HEENT: EOMI, MMM Heart: RRR, no m/r/g Lungs: rales at B bases GI: abdomen is soft, nontender, mildly distended; midline incision well healed Extremities: trace edema BLE's, no clubbing/cyanosis; skin exam as above Objective Objective Clinical Data: Abnormal lab results 09/02/18 09/02/18 Range/Units 06:05 06:05 WBC 18.59 H D (4.4-10.8) k/cumm Hgb 11.7 L (12.0-15.5) g/dL MCHC 31.3 L (32.0-36.0) g/dL RDW 15.4 H (11.7-14.6) % Absolute Neutrophils 17.25 H (1.2-6.7) k/cumm Absolute Lymphocytes 0.84 L (1.2-3.4) k/cumm Carbon Dioxide 20.5 L (21.0-32.0) mmol/L Anion Gap 12.5 H (3-11) mmol/L BUN 49 H D (7-18) mg/dL Creatinine 2.11 H (0.55-1.02) mg/dL Glucose 118 H (70-100) mg/dL Calcium 10.5 H (8.5-10.1) mg/dL Vital Signs Temperature 36.5 C 09/02/18 13:18 Temperature Source Tympanic 09/02/18 13:18 Pulse 60 09/02/18 13:18 Pulse Rhythm Regular 09/02/18 08:35 Pulse 70 09/02/18 10:40 Respiratory Rate 18 09/02/18 13:18 Respiratory Effort 09/02/18 08:35 Respiratory Depth Shallow 09/02/18 08:35 Respiratory Pattern Tachypnea 09/02/18 08:35 Blood Pressure 148/69 H 09/02/18 13:18 Blood Pressure Mean 68 09/02/18 10:40 Blood Pressure Position Sitting 09/01/18 16:02 Pulse Oximetry 92 L 09/02/18 13:18 Oxygen Delivery Method Nasal Cannula 09/02/18 13:18 Oxygen Flow Rate 2 09/02/18 13:18 Pain Level 6 09/01/18 23:21 Intake & Output 09/01/18 09/02/18 09/02/18 23:59 11:59 23:59 Intake Total 1630 / 1930 1970 / 2330 360 / 2330 Output Total 975 / 975 350 / 350 Balance 655 / 955 1619 / 1980 / 1979 Weight 54.4 kg 52.2 kg Intake: IV 350 / 650 1010 / 1010 Oral 1280 / 1280 960 / 1320 360 / 1320 Output: Urine 975 / 975 350 / 350 Other: Urine Color Light Maria Elena Light Maria Elena Yellow Dark Maria Elena Urine Appearance Clear Clear Clear Urine Odor Normal Normal Comment Pt does not feel the need to urinate and stays she usually has to go once she is in bed resting. Pt goes long hours without needing to urinate at baseline pt voided, bladder scanned for 0ml Stool Size Small Moderate Stool Characteristics Soft Soft Formed Formed Brown Voiding Methods Bedside Commode Bedside Commode Bedside Commode Laboratory Results WBC 18.59 k/cumm (4.4-10.8) H D 09/02/18 06:05 RBC 4.06 m/cumm (4.00-5.20) 09/02/18 06:05 Hgb 11.7 g/dL (12.0-15.5) L 09/02/18 06:05 Hct 37.4 % (36.0-46.0) 09/02/18 06:05 MCV 92.1 fL (80-95) 09/02/18 06:05 MCH 28.8 pg (27.0-33.0) 09/02/18 06:05 MCHC 31.3 g/dL (32.0-36.0) L 09/02/18 06:05 RDW 15.4 % (11.7-14.6) H 09/02/18 06:05 Plt Count 382 x1000/uL (130-400) 09/02/18 06:05 MPV 9.1 fL (8.0-11.0) 09/02/18 06:05 Immature Gran % 0.3 09/02/18 06:05 Neutrophils % 92.8 09/02/18 06:05 Lymphocytes % 4.5 09/02/18 06:05 Monocytes % 2.2 09/02/18 06:05 Eosinophils % 0.1 09/02/18 06:05 Basophils % 0.1 09/02/18 06:05 Absolute Neutrophils 17.25 k/cumm (1.2-6.7) H 09/02/18 06:05 Absolute Lymphocytes 0.84 k/cumm (1.2-3.4) L 09/02/18 06:05 Absolute Monocytes 0.41 k/cumm (0.11-0.7) 09/02/18 06:05 Absolute Eosinophils 0.02 k/cumm (0.0-0.7) 09/02/18 06:05 Absolute Basophils 0.02 k/cumm (0.0-0.2) 09/02/18 06:05 Sodium 136 mmol/L (136-145) 09/02/18 06:05 Potassium 4.5 mmol/L (3.5-5.1) 09/02/18 06:05 Chloride 103 mmol/L (98-107) 09/02/18 06:05 Carbon Dioxide 20.5 mmol/L (21.0-32.0) L 09/02/18 06:05 Anion Gap 12.5 mmol/L (3-11) H 09/02/18 06:05 BUN 49 mg/dL (7-18) H D 09/02/18 06:05 Creatinine 2.11 mg/dL (0.55-1.02) H 09/02/18 06:05 Estimated GFR/1.73 m2 22.42 (mL/min/1.73m2) 09/02/18 06:05 Glucose 118 mg/dL (70-100) H 09/02/18 06:05 Calcium 10.5 mg/dL (8.5-10.1) H 09/02/18 06:05 Magnesium 2.0 mg/dL (1.8-2.4) 09/02/18 06:05 Total Bilirubin 0.4 mg/dL (0.2-1.0) 09/01/18 09:00 AST 28 U/L (15-37) 09/01/18 09:00 ALT 15 U/L (12-78) 09/01/18 09:00 Alkaline Phosphatase 130 U/L (46-116) H 09/01/18 09:00 Troponin I < 0.02 ng/mL (0.00-0.06) 09/01/18 09:00 NT-Pro-B Natriuret Pep 2537 pg/mL (-299) H 09/01/18 09:00 Total Protein 8.8 g/dL (6.4-8.2) H 09/01/18 09:00 Albumin 2.6 g/dL (3.4-5.0) L 09/01/18 09:00
[2018-09-02] MEDS: Furosemide 20 MG/2 ML VIAL IVP (15:57)
[2018-09-02] MEDS: hydrALAZINE 10 MG TAB PO (19:43)
[2018-09-03] VITALS (7 sets, daily range): BP systolic 126–189; BP diastolic 70–91; PULSE 64–80; RESP 17–19; TEMP 36.8–37.6; O2SAT 91–96
[2018-09-03] MEDS: Normal Saline Flush 10 ML SYR IVP ×6 (05:27→20:58)
[2018-09-03] MEDS: DOXYCYCLINE 100 MG in Normal Saline 100 ML IVPB (05:27)
[2018-09-03 07:17] LABS: ALT 12 U/L (12-78); AST 32 U/L (15-37); Albumin 2.1 g/dL (3.4-5.0); Alkaline Phosphatase 101 U/L (46-116); Anion Gap 11.1 mmol/L (3-11); BUN 53 mg/dL (7-18); Bilirubin, Direct 0.08 mg/dL (0.00-0.20); Bilirubin, Total 0.3 mg/dL (0.2-1.0); CO2 20.9 mmol/L (21.0-32.0); CREATININE 1.77 mg/dL (0.55-1.02); Calcium 10.4 mg/dL (8.5-10.1); Chloride 106 mmol/L (98-107); Estimated GFR 27.46 (mL/min/1.73m2); Glucose 98 mg/dL (70-100); Magnesium 1.9 mg/dL (1.8-2.4); Potassium 4.7 mmol/L (3.5-5.1); Sodium 138 mmol/L (136-145)
[2018-09-03 07:19] LABS: HCT 37.6 % (36.0-46.0); HGB 11.8 g/dL (12.0-15.5); Mean Corp. HGB Concentration 31.4 g/dL (32.0-36.0); Mean Corpuscular Hemoglobin 28.8 pg (27.0-33.0); Mean Corpuscular Volume 91.7 fL (80-95); Mean Platelet Volume 9.2 fL (8.0-11.0); Platelet Count 390 x1000/uL (130-400); RBC Distribution Width 15.3 % (11.7-14.6)
[2018-09-03] MEDS: cefTRIAXone 1 GM/50 ML BAG IVPB (08:54)
[2018-09-03] MEDS: Furosemide 20 MG TAB PO (08:55)
[2018-09-03] MEDS: Metoprolol 25 MG TAB PO ×2 (08:55→20:58)
[2018-09-03] MEDS: Apixaban 2.5 MG TAB PO (08:56)
[2018-09-03] MEDS: cloNIDine 0.1 MG TAB PO ×2 (08:56→20:58)
[2018-09-03] MEDS: Amiodarone 200 MG TAB 100 MG PO (08:56)
[2018-09-03] MEDS: hydrALAZINE 10 MG TAB PO ×2 (08:57→20:58)
[2018-09-03] MEDS: Pantoprazole 40 MG TABCR PO (08:57)
--- NOTE | 2018-09-03 09:10 | PDOC.CMPRO ---
Care Management Progress Note S/O: Antonia remains pleasant in interaction, she was sitting in her chair visiting with her daughter when CM met with her. She continues to be diuresed, per MD her adrenal function is in question; she continues work up. RT reports R lower lobe crackles and continued requirement of 2L O2; per MD Antonia will have repeat CXR. CM will continue to follow-no change to overall discharge plan. A: 83 year old female admitted to [facility] 09/01/18 for Pneumonia, CHF P: Antonia will return home when ready per MD. She will follow up with her PCP and plan of care as prescribed-no additional services anticipated at this time. She will transport via private vehicle with her daughter, Orly.
--- NOTE | 2018-09-03 10:16 | DI.RAD_ITS ---
SYMPTOM/DIAGNOSIS: F/U PNEUMONIA PA AND LATERAL CHEST: Comparison is made with 09/01/18. There is stable mild cardiomegaly. The pacing wires are stable in position. There are bilateral pulmonary opacities, right greater than left, which appear stable compared to the prior examination. No gross effusions or pneumothoraces are identified. There is an S type scoliotic curvature of the thoracolumbar spine. Degenerative changes are seen in the spine. IMPRESSION: Stable bilateral pulmonary infiltrates.
--- NOTE | 2018-09-03 10:33 | DI.VRAD_ITS ---
EXAM: XR Chest, 2 Views EXAM DATE/TIME: 09/03/2018 10:17 AM CLINICAL HISTORY: 83 years old, female; Signs and symptoms; Other: F/u pneumonia TECHNIQUE: Imaging protocol: XR of the chest, 2 views. COMPARISON: CR XR CHEST 2V PA LATERAL 09/01/2018 9:37 AM FINDINGS: Tubes, catheters and devices: Dual lead cardiac pacer, unchanged. Lungs: Diffuse patchy opacities throughout the right lung and prominent reticular a mildly patchy densities in the left lung are radiographically unchanged when compared to the prior examination. No new focal air space disease is identified. Pleural space: No pleural effusion or pneumothorax. Heart/Mediastinum: Mild cardiomegaly, unchanged. Bones/joints: Status post sternal splitting procedure. IMPRESSION: Bilateral lung disease, unchanged. Dictated and Authenticated by: Jalil Wood MD. Ordering:ALICIA Apodaca MD
[2018-09-03] MEDS: Furosemide 20 MG/2 ML VIAL IVP ×2 (10:35→15:12)
[2018-09-03] MEDS: PIPERACILLIN/TAZO 3.375 GM in Normal Saline 50 ML IVPB ×2 (12:13→20:59)
--- NOTE | 2018-09-03 12:25 | PT.INTREAT ---
Date of service: 09/03/18 Time of Service: 12:25 PT Notes Inpatient Physical Therapy Treatment Note [facility] Date: 09/03/18 PRECAUTIONS: Fall SUBJECTIVE: Antonia is hopeful that she will be leaving today. She is excited to have visitors this afternoon. OBJECTIVE: PAIN: No c/o pain BED MOBILITY/TRANSFERS Sit-stand: SBA Stand-sit: SBA GAIT Assistive Device: No AD Weight bearing: Full Assist: CGA/SBA Distance: 200' THEREX: Patient completed an upper extremity and lower extremity strengthening program, as per flow sheet. STAIRS: Up/down 3x4 and 2x6 using B rails and a step-over pattern with supervision ASSESSMENT: Patient tolerated session well without complaint. Patient would benefit from continued gait and transfer training as well as general conditioning for improved activity tolerance and mobility. PLAN: Continue with PT's POC TREATMENT CODE/TIME: 30 minutes; [id number], [id number]
--- NOTE | 2018-09-03 16:08 | W.PM.PROGNOT ---
Date of Service Date of service: 09/03/18 Time of Service: 16:08 Assessment and Plan (1) Pneumonia: Current visit: Yes Status: Acute Likely CAP, but aspiration cannot be excluded - speech therapy consulted Abx changed to zosyn based on location of PNA. (2) CHF (congestive heart failure): Current visit: Yes Status: Chronic Evidence of both systolic and diastolic CHF by last echo in 2017, with an ejection fraction of 45 to 50%. Continue IV lasix (3) ZAFAR (acute kidney injury): Current visit: Yes Status: Acute ZAFAR in setting of CKD, improved even with diuretics - continue to monitor. No urinary retention. Continue to hold torie-i. (4) Hypertension: Current visit: Yes Status: Chronic Add norvasc. Continue metoprolol and hydralazine. Hold acei (5) PAF (paroxysmal atrial fibrillation): Current visit: Yes Status: Chronic I think she is back in Afib. Maintained on antiarrhythmic therapy with amiodarone, as well as BB therapy. Rate appears controlled. I am holding apixaban due to BRBPR for tonight. She is asymptomatic of Afib at this time - will need to follow up with her outpatient woodworking machine offbearer for possible elective cardioversion. (6) Blisters of multiple sites: Current visit: Yes Status: Resolved The patient states that she is under the care of a parcel post carrier for this, which makes me question if she does not have bullous pemphigoid. Obtaining records. I do not see any evidence of active blisters at this time. (7) Hyperpigmentation: Current visit: Yes Status: Acute Am cortisol is pending. The patient did have a low sodium this am as well as a blood sugar on the lower side - based on multiple recent courses of steroids, I think it is worth it to try to treat her with IV hydrocortisone for acute adrenal insufficiency. (8) Hypoxia: Current visit: Yes Status: Acute Diurese and treat Pneumonia. (9) Bright red blood per rectum: Current visit: Yes Status: Acute In setting of manual disimpaction, constipation and anticoagulation. Apparently, not uncommon. Will hold anticoagulation for 24 hours and add a bowel regimen. (10) Constipation: Current visit: Yes Status: Acute As above (11) Adrenal insufficiency: Current visit: Yes Status: Suspected As above (12) Hypercalcemia: Current visit: Yes Status: Acute Possibly iatrogenic as the patient was on calcium and vitamin D supplements. Awaiting PTH, ionized calcium, and vitamin D levels (13) DVT prophylaxis: Current visit: Yes Status: Acute Currently holding eliquis. Continue PPI therapy for GI prophylaxis as well. (14) Advance directive on file: Current visit: Yes Status: Acute DNI. Patient is interested in talking about goals of her care - palliative care consulted. (15) Discharge planning issues: Current visit: Yes Status: Acute DNI. Palliative care consulted to discuss goals of care, per patient request. Subjective Interval history since last seen: Ms Win is now not sure whether or not she was taking prednisone prior to coming to the hospital. I spoke with her daughter, who states that she finished it one week prior to coming to the hospital, but that it was her 3rd course in a relatively short amount of time. She denies dizziness, chest pain. States her shortness of breath is a little bit better. Denies nausea/vomiting. States she is always constipated. Today, she evidently disimpacted herself because she felt so constipated - she says she does this at home all the time. She did not report her complaints to nursing prior. There was some bright red blood in the toilet after this happen - per patient, this is normal too. Exam Narrative Exam Narrative: General: Very pleasant, frail elderly female, sitting comfortably in a chair, A&Ox3 Skin: solar keratoses; no blisters. Some chronic hyperpigemntation noted in BUE. HEENT: EOMI, MMM Heart: irregularly irregular rhythm, no m/r/g Lungs: CTAB - much better GI: abdomen is soft, nontender, mildly distended; midline incision well healed Extremities: +1 edema BLE's, no clubbing/cyanosis; skin exam as above Objective Objective Clinical Data: Abnormal lab results 09/03/18 09/03/18 Range/Units 06:40 06:40 WBC 19.60 H (4.4-10.8) k/cumm Hgb 11.8 L (12.0-15.5) g/dL MCHC 31.4 L (32.0-36.0) g/dL RDW 15.3 H (11.7-14.6) % Carbon Dioxide 20.9 L (21.0-32.0) mmol/L Anion Gap 11.1 H (3-11) mmol/L BUN 53 H (7-18) mg/dL Creatinine 1.77 H (0.55-1.02) mg/dL Calcium 10.4 H (8.5-10.1) mg/dL Albumin 2.1 L (3.4-5.0) g/dL Vital Signs Temperature 37.6 C H 09/03/18 15:51 Temperature Source Tympanic 09/03/18 15:51 Pulse 79 09/03/18 15:51 Pulse Rhythm Regular 09/03/18 08:05 Pulse 70 09/02/18 10:40 Respiratory Rate 18 09/03/18 15:51 Respiratory Effort Non-Labored 09/03/18 08:05 Respiratory Depth Normal 09/03/18 08:05 Respiratory Pattern Normal 09/03/18 08:05 Blood Pressure 188/80 H 09/03/18 15:51 Blood Pressure Mean 68 09/02/18 10:40 Blood Pressure Position Sitting 09/01/18 16:02 Pulse Oximetry 91 L 09/03/18 15:51 Oxygen Delivery Method Nasal Cannula 09/03/18 15:51 Oxygen Flow Rate 2 09/03/18 15:51 Pain Level 6 09/01/18 23:21 Intake & Output 09/02/18 09/03/18 09/03/18 23:59 11:59 23:59 Intake Total 720 / 2840 860 / 1560 700 / 1560 Output Total 1535 / 1885 700 / 700 Balance -815 / 955 160 / 860 700 / 860 Weight 56.3 kg Intake: IV 120 / 1280 110 / 120 10 / 120 Oral 600 / 1560 750 / 1440 690 / 1440 Output: Urine 1535 / 1885 700 / 700 Post Void Residual 0 / 0 0 / 0 Other: Urine Color Pale Yellow Yellow Urine Appearance Clear Clear Urine Odor None None Comment post voiding Stool Size Moderate Moderate Stool Characteristics Soft Soft Formed Formed Voiding Methods Toilet Toilet Laboratory Results WBC 19.60 k/cumm (4.4-10.8) H 09/03/18 06:40 RBC 4.10 m/cumm (4.00-5.20) 09/03/18 06:40 Hgb 11.8 g/dL (12.0-15.5) L 09/03/18 06:40 Hct 37.6 % (36.0-46.0) 09/03/18 06:40 MCV 91.7 fL (80-95) 09/03/18 06:40 MCH 28.8 pg (27.0-33.0) 09/03/18 06:40 MCHC 31.4 g/dL (32.0-36.0) L 09/03/18 06:40 RDW 15.3 % (11.7-14.6) H 09/03/18 06:40 Plt Count 390 x1000/uL (130-400) 09/03/18 06:40 MPV 9.2 fL (8.0-11.0) 09/03/18 06:40 Immature Gran % 0.3 09/02/18 06:05 Neutrophils % 92.8 09/02/18 06:05 Lymphocytes % 4.5 09/02/18 06:05 Monocytes % 2.2 09/02/18 06:05 Eosinophils % 0.1 09/02/18 06:05 Basophils % 0.1 09/02/18 06:05 Absolute Neutrophils 17.25 k/cumm (1.2-6.7) H 09/02/18 06:05 Absolute Lymphocytes 0.84 k/cumm (1.2-3.4) L 09/02/18 06:05 Absolute Monocytes 0.41 k/cumm (0.11-0.7) 09/02/18 06:05 Absolute Eosinophils 0.02 k/cumm (0.0-0.7) 09/02/18 06:05 Absolute Basophils 0.02 k/cumm (0.0-0.2) 09/02/18 06:05 Sodium 138 mmol/L (136-145) 09/03/18 06:40 Potassium 4.7 mmol/L (3.5-5.1) 09/03/18 06:40 Chloride 106 mmol/L (98-107) 09/03/18 06:40 Carbon Dioxide 20.9 mmol/L (21.0-32.0) L 09/03/18 06:40 Anion Gap 11.1 mmol/L (3-11) H 09/03/18 06:40 BUN 53 mg/dL (7-18) H 09/03/18 06:40 Creatinine 1.77 mg/dL (0.55-1.02) H 09/03/18 06:40 Estimated GFR/1.73 m2 27.46 (mL/min/1.73m2) 09/03/18 06:40 Glucose 98 mg/dL (70-100) 09/03/18 06:40 Calcium 10.4 mg/dL (8.5-10.1) H 09/03/18 06:40 Magnesium 1.9 mg/dL (1.8-2.4) 09/03/18 06:40 Total Bilirubin 0.3 mg/dL (0.2-1.0) 09/03/18 06:40 Conjugated Bilirubin 0.08 mg/dL (0.00-0.20) 09/03/18 06:40 AST 32 U/L (15-37) 09/03/18 06:40 ALT 12 U/L (12-78) 09/03/18 06:40 Alkaline Phosphatase 101 U/L (46-116) 09/03/18 06:40 Troponin I < 0.02 ng/mL (0.00-0.06) 09/01/18 09:00 NT-Pro-B Natriuret Pep 2537 pg/mL (-299) H 09/01/18 09:00 Total Protein 7.0 g/dL (6.4-8.2) 09/03/18 06:40 Albumin 2.1 g/dL (3.4-5.0) L 09/03/18 06:40
[2018-09-03 16:32] LABS: Ionized Calcium 1.34 mmol/L (1.12-1.32)
[2018-09-03] MEDS: Hydrocortisone SOD SUC. 100 MG VIAL IVP (16:46)
[2018-09-03] MEDS: amLODIPine 5 MG TAB PO (16:47)
[2018-09-03] MEDS: Senna TAB 1 TAB PO (20:58)
[2018-09-03] MEDS: Docusate Sodium 100 MG CAP PO (20:58)
[2018-09-04] VITALS (7 sets, daily range): BP systolic 126–179; BP diastolic 59–81; PULSE 68–75; RESP 16–18; TEMP 36.2–36.7; O2SAT 92–98
[2018-09-04] MEDS: Hydrocortisone SOD SUC. 100 MG VIAL 50 MG IVP ×2 (03:08→19:22)
[2018-09-04] MEDS: PIPERACILLIN/TAZO 3.375 GM in Normal Saline 50 ML IVPB ×3 (03:08→19:25)
[2018-09-04] MEDS: Normal Saline Flush 10 ML SYR IVP ×5 (03:09→19:23)
[2018-09-04 07:11] LABS: Abs Immature Grans 0.05 k/cumm (0.0-0.09); Absolute Basophil Count 0.01 k/cumm (0.0-0.2); Absolute Lymphocyte Count 0.71 k/cumm (1.2-3.4); Absolute Neutrophil Count 12.07 k/cumm (1.2-6.7); Basophils % 0.1; HCT 38.6 % (36.0-46.0); HGB 12.1 g/dL (12.0-15.5); Immature Grans % 0.4; Lymphocytes % 5.3; Mean Corp. HGB Concentration 31.3 g/dL (32.0-36.0); Mean Corpuscular Hemoglobin 28.7 pg (27.0-33.0); Mean Corpuscular Volume 91.5 fL (80-95); Monocytes % 3.7; Neutrophils % 90.5; Platelet Count 363 x1000/uL (130-400); RBC 4.22 m/cumm (4.00-5.20); RBC Distribution Width 15.2 % (11.7-14.6); White Blood Cell Count 13.34 k/cumm (4.4-10.8)
[2018-09-04 07:15] LABS: Absolute Monocyte Count 0.49 k/cumm (0.11-0.7)
[2018-09-04 07:20] LABS: Anion Gap 11.3 mmol/L (3-11); CO2 23.7 mmol/L (21.0-32.0); CREATININE 1.52 mg/dL (0.55-1.02); Calcium 10.4 mg/dL (8.5-10.1); Chloride 104 mmol/L (98-107); Estimated GFR 32.74 (mL/min/1.73m2); Glucose 98 mg/dL (70-100); Potassium 3.9 mmol/L (3.5-5.1); Sodium 139 mmol/L (136-145)
--- NOTE | 2018-09-04 07:30 | MERGE_ITS ---
*[facility]* *[facility]* [address] [place] [address] Date of study: 09/04/2018 Transthoracic Echocardiography M-mode, complete 2D, complete spectral Doppler, and color Doppler *STUDY CONCLUSIONS* Summary: 1. Left ventricle: The cavity size was normal. The estimated ejection fraction was 50%. Findings consistent with diastolic dysfunction. There was no evidence of elevated ventricular filling pressure by Doppler parameters. 2. Ventricular septum: Septal motion showed paradoxical motion. 3. Aortic valve: There was mild regurgitation. 4. Mitral valve: There was mild regurgitation. 5. Left atrium: The atrium was moderately dilated. 6. Right ventricle: The cavity size was normal. Wall thickness was normal. Pacer wire or catheter noted in right ventricle. Systolic function was normal. 7. Right atrium: The atrium was moderately dilated. 8. Atrial septum: No defect or patent foramen ovale was identified. 9. Tricuspid valve: There was moderate regurgitation. 10. Pulmonary arteries: Pulmonary systolic pressure was in the range of 45mm Hg to 55mm Hg. 11. Inferior vena cava: The vessel was patent and normal in size. The respirophasic diameter changes were in the normal range (greater than or equal to 50%), consistent with normal central venous pressure. *PATIENT PRESENTATION* Height: 149.9cm ((59in) ) S/D Pressure: 179 / 81 Weight: 56.2kg ((123.7lb) ) BSA: 1.54m^2 Test start time: 07:40 AM. Test stop time: 08:40 AM. PERFORMING Unknown PERFORMING [facility] CONSULTING Fran Self [employer]PATCH SUPERVISOR RT Thomas (R)(CT), [facility] ORDERING Constanza Schultz REFERRING Constanza Schultz *PROCEDURE DATA* Procedure information: The patient was identified by two identifiers. This study was interpreted by [facility]. Pertinent images and digital data are archived for permanent storage and are available for subsequent review. Comparison was made to the study of 09/22/2016. Study status: Routine. Transthoracic echocardiography. M-mode, complete 2D, complete spectral Doppler, and color Doppler. A Transthoracic Echocardiogram was performed. Scanning was performed from the parasternal, apical, subcostal, and suprasternal notch acoustic windows. Images were obtained using an [id number] cardiac ultrasound machine. Image quality was adequate. Study completion: The patient tolerated the procedure well. History: PMH: CHF assess EF. *CARDIAC ANATOMY* Left ventricle: The cavity size was normal. The estimated ejection fraction was 50%. The tissue Doppler parameters were abnormal. Findings consistent with diastolic dysfunction. There was no evidence of elevated ventricular filling pressure by Doppler parameters. Aortic valve: Trileaflet; mildly thickened, mildly calcified leaflets. Mobility was not restricted. Doppler: Transvalvular velocity was within the normal range. There was no stenosis. There was mild regurgitation. VTI ratio of LVOT to aortic valve: 0.65. Valve area (VTI): 2cm^2. Indexed valve area (VTI): 1.3cm^2/m^2. Peak velocity ratio of LVOT to aortic valve: 0.53. Valve area (Vmax): 1.6cm^2. Indexed valve area (Vmax): 1cm^2/m^2. Mean velocity ratio of LVOT to aortic valve: 0.53. Valve area (Vmean): 1.6cm^2. Indexed valve area (Vmean): 1cm^2/m^2. Mean gradient (S): 7.9mm Hg. Peak gradient (S): 13.8mm Hg. Aorta: Aortic root: The aortic root was normal in size. Ascending aorta: The ascending aorta was mildly dilated. Mitral valve: Doppler: There was no evidence for stenosis. There was mild regurgitation. Valve area by pressure half-time: 2.6cm^2. Indexed valve area by pressure half-time: 1.7cm^2/m^2. Left atrium: The atrium was moderately dilated. Atrial septum: No defect or patent foramen ovale was identified. Right ventricle: The cavity size was normal. Wall thickness was normal. Pacer wire or catheter noted in right ventricle. Systolic function was normal. Ventricular septum: Septal motion showed paradoxical motion. Pulmonic valve: Doppler: There was no evidence for stenosis. There was mild regurgitation. Peak gradient (S): 4.8mm Hg. Tricuspid valve: Doppler: There was moderate regurgitation. Pulmonary artery: Poorly visualized. Pulmonary systolic pressure was in the range of 45mm Hg to 55mm Hg. Right atrium: The atrium was moderately dilated. Pacer wire or catheter noted in right atrium. Pericardium: There was no pericardial effusion. Systemic veins: Inferior vena cava: Well visualized. The vessel was patent and normal in size. The respirophasic diameter changes were in the normal range (greater than or equal to 50%), consistent with normal central venous pressure. Baseline ECG: Paced rhythm. Measurements Left ventricle Value 09/22/2016 Reference LV ID, ED, PLAX 4.5 cm 3.9 3.5 - 6.0 LV ID, ES, PLAX 3.3 cm 3.1 2.1 - 4.0 LV PW thickness, ED, PLAX 1.1 cm 1.3 LV end-diastolic volume, 48 ml 1-p A2C LV ejection fraction, 1-p 52 % 52 A2C LV end-diastolic volume, 51 ml 1-p A4C LV ejection fraction, 1-p 46 % 47 A4C LV e', lateral 0.06 m/sec LV E/e', lateral 7 LV e', medial 0.035 m/sec LV E/e', medial 13 LV e', average 0.048 m/sec LV E/e', average 9 Ventricular septum Value 09/22/2016 Reference IVS thickness, ED, PLAX 1.2 cm 1.2 LVOT Value 09/22/2016 Reference LVOT ID, A-P 2.0 cm 2.0 LVOT area 3 cm^2 3.2 LVOT peak velocity, S 0.99 m/sec 1.07 LVOT mean velocity, S 0.72 m/sec LVOT VTI, S 21.4 cm 23.0 LVOT peak gradient, S 3.9 mm Hg LVOT mean gradient, S 2.3 mm Hg 2.2 Stroke volume (SV), LVOT 65 ml DP Stroke index (SV/bsa), 42 ml/m^2 LVOT DP Aortic valve Value 09/22/2016 Reference Aortic valve peak 1.9 m/sec velocity, S Aortic valve mean 1.36 m/sec velocity, S Aortic valve VTI, S 33.0 cm Aortic mean gradient, S 7.9 mm Hg Aortic peak gradient, S 13.8 mm Hg VTI ratio, LVOT/AV 0.65 0.65 Aortic valve area, VTI 2 cm^2 2.1 Velocity ratio, peak, 0.53 0.59 LVOT/AV Aortic valve area, peak 1.6 cm^2 1.9 velocity Velocity ratio, mean, 0.53 LVOT/AV Aortic valve area, mean 1.6 cm^2 velocity Aortic valve area/bsa, 1 cm^2/m^2 mean velocity Aorta Value 09/22/2016 Reference Aortic root ID, ED 3.2 cm Ascending aorta ID, A-P, S 3.5 cm 3.4 Left atrium Value 09/22/2016 Reference LA ID, A-P, ES 3.6 cm LA ID/bsa, A-P (H) 2.3 cm/m^2 <=2.2 LA area, ES, A4C (H) 29.5 cm^2 29 8.8 - 23.4 LA area, ES, A2C 23 cm^2 LA volume/bsa, ES, 1-p A4C 74 ml/m^2 69 LA volume, ES, 2-p 81 ml LA volume/bsa, ES, 2-p 53 ml/m^2 LA/aortic root ratio 1.12 1.19 Mitral valve Value 09/22/2016 Reference Mitral E-wave peak 0.45 m/sec 0.43 velocity Mitral A-wave peak 0.76 m/sec 0.63 velocity Mitral deceleration time (H) 296 ms 150 - 230 Mitral pressure half-time 86 ms 114 Mitral E/A ratio, peak 0.59 0.68 Mitral valve area, PHT, DP 2.6 cm^2 1.9 Tricuspid valve Value 09/22/2016 Reference Tricuspid regurg peak 3.5 m/sec 2.9 velocity Tricuspid peak RV-RA 48.9 mm Hg 33.6 gradient Right atrium Value 09/22/2016 Reference RA area, ES, A4C (H) 20.7 cm^2 22 8.3 - 19.5 Pulmonic valve Value 09/22/2016 Reference Pulmonic peak gradient, S 4.8 mm Hg 3.1 Legend: (L) and (H) kiara values outside specified reference range. I have personally reviewed the images and have reviewed and edited the reported findings. Electronically signed by Matthieu Roche MD 09/04/2018 11:18
[2018-09-04 07:32] LABS: TSH (W/Ref FT4) 0.74 uIU/mL (0.358-3.74)
[2018-09-04 07:33] LABS: BUN 48 mg/dL (7-18)
[2018-09-04 08:14] LABS: Vitamin D 25 Total 35.4 ng/ml (30-100)
--- NOTE | 2018-09-04 08:42 | PDOC.CMPRO ---
Care Management Progress Note S/O: Antonia remains pleasant in interaction. She had an ECHO today, as well as a speech consult and will meet with Palliative Care. She continues to be diuresed with IV Lasix, remains on IV ABX. CM will continue to follow-no change to overall discharge plan. A: 83 year old female admitted to [facility] 09/01/18 for Pneumonia, CHF P: Antonia will return home when ready per MD. She will follow up with her PCP and plan of care as prescribed including likely follow up with her outpatient hide stretcher hand for possible elective cardioversion-no additional services anticipated at this time. She will transport via private vehicle with her daughter, Orly.
[2018-09-04] MEDS: Senna TAB 1 TAB PO ×2 (08:51→19:23)
[2018-09-04] MEDS: Metoprolol 25 MG TAB PO ×2 (08:51→19:23)
[2018-09-04] MEDS: hydrALAZINE 10 MG TAB PO ×2 (08:51→19:23)
[2018-09-04] MEDS: Furosemide 20 MG/2 ML VIAL IVP ×2 (08:51→15:34)
[2018-09-04] MEDS: cloNIDine 0.1 MG TAB PO ×2 (08:51→19:23)
[2018-09-04] MEDS: Pantoprazole 40 MG TABCR PO (08:51)
[2018-09-04] MEDS: Amiodarone 200 MG TAB 100 MG PO (08:51)
[2018-09-04] MEDS: Docusate Sodium 100 MG CAP PO ×2 (08:51→19:23)
[2018-09-04] MEDS: amLODIPine 5 MG TAB PO (08:51)
--- NOTE | 2018-09-04 11:19 | EVALE_ITS ---
Date of service: 09/04/18 Time of Service: 09:15 Speech Therapy Evaluation Note: REFERRING PROVIDER: Dr. Schultz BACKGROUND This is an 83 year old right-handed female who presented to the ED on 09/01/18 with a 5-day h/o dyspnea and dry cough. A CXR of that date showed increased radiodensity areas in the right lung indicating possible R-sided pneumonia. The patient (pt) was admitted for tx of CAP, ZAFAR and hypercalcemia. A repeat CXR on 09/03/18 showed bilateral (B) lung disease. A swallow evaluation was requested to assess for aspiration risk. PMH: asthma, CHF, PAF, CKD, HTN, PHTN COPD, hypercalcemai, depression. The pt is able to provide additional background information regarding p.o. consistencies taken in the weeks prior to this admission. She says she takes what, by description, are Thin liquids, a Regular consistency diet and whole pills with a Thin liquid wash. She reports a h/o inconsistent globus sensation. When asked to point to the area of sensation, she points to the level of the UES. She has discussed with her PCP the option of putting a tube down there to widen it (likely an esophageal dilitation), but she has always declined this option, saying that she solves the problem on her own just by slowing down her rate of p.o. intake. She confirms her wish to continue with this decision. OBJECTIVE Nursing reports: - T: 36.5 - O2 sat: 94% on 2L NC - LS: CTA-B in the presence of ABX - Toleration of multiple whole pills taken at one time with a Thin liquid wash earlier this morning. The pt is sitting in her chair with her breakfast meal in front of her. She says she was told to wait until my arrival to eat. (I did not make this request.) She converses well, both asking and answering questions, and shows good use of humor. She is A&O x 2 (person, place) and able to follow 3-step directions. Oral Sensorimotor Exam The pt has her own dention but is partially edentulous on both the lower right and upper left. She denies any dental discomfort but does report occasional gingival bleeding. She states she has never flossed. Oral sensation is WNL-B for buccal, labial and lingual areas. Motorically, the smile is symmetrical as are forehead wrinkles. There is no facial droop. There is no lingual deviation on protrusion in a setting of good excursion. Lingual lateralization is WNL-B, however, lingual rapid alternating movements are moderately-severely decreased B. Lingual strength is moderately decreased B. Mandibular lateralization is WNL-B. Velopharyngeal elevation is strong and symmetrical. Volitional cough and throat-clear are both strong. Speech intelligibility to this unfamiliar listener in a setting of mild background noise is 100%. Vocal quality and intensity are both WNL. Swallowing - Thin liquid: Good bolus control & posterior oral transit (POT); no miranda signs/symptoms (s/s) aspiration/penetration (A/P); oral clearance 100%; no oral escape. These results are true for both single and consecutive swallows by both cup and straw. - Puree food: Good bolus control & linguopalatal bolus compression; POT WNL; no miranda s/s A/P; oral clearance 100%; no oral escape. - Mechandically Altered food: Good bolus control & mastication quality; POT WNL; no miranda s/s A/P; oral clearance 100%; no oral escape. - Dysphagia Advanced food: Results are the same as for M.A. food. - modified Regular food: Good mastication quality with use of increased mastication time; bolus control & POT both WNL; no miranda s/s A/P; oral clearance 100%; no oral escape. - Regular food: Results are the same as for modified Regular food. The pt is observed to independently self-feed using her dominant RUE and a regul ar utensil. She denies any pharyngeal or esopohageal globus sensation. INTERPRETATION The pt shows no clinical signs of an oropharyngeal dysphagia, thus it is felt that her current pneumonia is likely not due to a disordered swallow. She may have a mild esophageal dysphagia based on self-reported history, but she is comfortable in using a common strategy to relieve any globus sensation. RECOMMENDATIONS 1. Continue current p.o. consistencies: Thin liquids, a Regular consistency diet, whole pills with a liquid wash. 2. No speech therapy is indicated at this time. Thank you for referring this pt.
--- NOTE | 2018-09-04 12:01 | CMPROGNOTE_ITS ---
Care Management Progress Note S/O: Antonia remains pleasant in interaction. She had an ECHO today, as well as a speech consult and will meet with Palliative Care. She continues to be diuresed with IV Lasix, remains on IV ABX. CM will continue to follow-no change to overall discharge plan. A: 83 year old female admitted to [facility] 09/01/18 for Pneumonia, CHF P: Antonia will return home when ready per MD. She will follow up with her PCP and plan of care as prescribed including likely follow up with her outpatient weighmaster for possible elective cardioversion-no additional services anticipated at this time. She will transport via private vehicle with her daughter, Orly.
[2018-09-04 12:14] LABS: Parathyroid Hormone,Intact 74 pg/ml (19-88)
--- NOTE | 2018-09-04 14:02 | CHAPLAIN ---
Antonia was sitting up in her chair when I visited. She easily engaged in a conversation telling me about moving back to [place] to live with her daughter in [place]. Her , Adolfo, lives at [facility] in [facility]. Antonia was driving to spend most days with Adolfo, but has since stopped driving on the recommendation of her PCP. She now relies in her daugher to take her [employer], where she usually spends the morning with Adolfo and then is picked up again by her daughter. She cut back to just spending the mornings, after her PCP suggested going for the whole day may be too stressful. Antonia worries about this taking up too much of her daughter's time. Her daughter works nights. Antonia said that Adolfo's short term memory is not good, and he often doesn't remember who has visited shortly after the visit is over. They are [employer] and Antonia was attending Mass with Adolfo at [facility] when it was offered there. I let Antonia know that one of the priests from [facility] will likely be in this afternoon to visit. Antonia has two other children, another daughter who calls often, and a son in [facility] [place] who checks in less often. She seems to be very well supported by her daughter, Orly, with whom she lives.
--- NOTE | 2018-09-04 14:10 | PT.INTREAT ---
Date of service: 09/04/18 Time of Service: 14:10 PT Notes 09/04/18 SUBJECTIVE: Antonia stating she is fatigued this afternoon. She was been quite busy today. She is motivated to get better and go home and she is agreeable to PT treatment. OBJECTIVE: Seated in chair. Agreeable to PT. TRANSFERS sit to stand: S Stand to sit: S Sit to supine: S GAIT Device: No AD, pushes IV pole Weight bearing: Full Assist: SBA Distance: 125x2 Deviation: stand rest x 1, sit rest x 1 2 L NC Vitals: 2 L NC; 82-90% throughout Therex: As noted on flow sheet for UE/LE strengthening. See flow sheet. ASSESSMENT: Pt more fatigued this PM due to her activity level this morning. She ambulates without LOB. She did have some SOB and recovers quickly with standing or seated rest break. PLAN: Continue current POC progressing toward's established goals. Treatment time: 25 minutes [id number], [id number] Loraine Finn, [employer]
--- NOTE | 2018-09-04 14:16 | PTTR_ITS ---
Date of service: 09/04/18 Time of Service: 14:10 PT Notes 09/04/18 SUBJECTIVE: Antonia stating she is fatigued this afternoon. She was been quite busy today. She is motivated to get better and go home and she is agreeable to PT treatment. OBJECTIVE: Seated in chair. Agreeable to PT. TRANSFERS sit to stand: S Stand to sit: S Sit to supine: S GAIT Device: No AD, pushes IV pole Weight bearing: Full Assist: SBA Distance: 125x2 Deviation: stand rest x 1, sit rest x 1 2 L NC Vitals: 2 L NC; 82-90% throughout Therex: As noted on flow sheet for UE/LE strengthening. See flow sheet. ASSESSMENT: Pt more fatigued this PM due to her activity level this morning. She ambulates without LOB. She did have some SOB and recovers quickly with standing or seated rest break. PLAN: Continue current POC progressing toward's established goals. Treatment time: 25 minutes [id number], [id number] Loraine Finn, [employer] OPERATOR
--- NOTE | 2018-09-04 15:29 | OT.INIE ---
Occupational Therapy Notes Inpatient Occupational Therapy Evaluation Date: 09/04/18 Referring Doctor:Constanza Schultz MD OT Orders: Eval and Treat Precautions: Standard PATIENT PROFILE/ADMITTING DIAGNOSIS: Pt is an 83 year old female who was admitted to [facility] for community acquired pneumonia and is being tx with O2 supplementation and antibiotics. Past Medical History: Hypercalcemia (Chronic) CHF (congestive heart failure) (Chronic) Presence of permanent cardiac pacemaker (Chronic) PAF (paroxysmal atrial fibrillation) (Chronic) Hypertension (Chronic) Pulmonary hypertension (Chronic) Asthma (Chronic) CKD (chronic kidney disease) (Chronic) Chronic kidney disease (Acute) Asthma (Chronic) Atrial fibrillation (Chronic) CHF (congestive heart failure) (Chronic) COPD (chronic obstructive pulmonary disease) (Chronic) Depression (Chronic) HTN (hypertension) (Chronic) Surgical History History of thoracic aortic aneurysm repair (Chronic) AICD (automatic cardioverter/defibrillator) present (Acute) H/O thoracic aortic aneurysm repair (Acute) Pacemaker (Acute) Social History/Home Situation: Pt lives in a private home with her daughter, she is (I) with all ADLs/IADLs. She states that she does not drive. Her PCP had taken her license away and pt states that her daughter is her primary driving. Her lives in a [facility] and she visits him daily. Her daughter (A) with ADLs in the day and she sleeps on the first floor of her daughters home. Equipment owned/DME: None SUBJECTIVE: Pt was sitting in chair when OT arrived. She was agreeable to OT session reporting that she is (I) at home. OBJECTIVE: General Observation: IV (L) UE, OT nasal cannula Mental Status: A&Ox3 Pain: no c/o pain ROM: RUE WFL L UE WFL STRENGTH: RUE 4+/5 throughout LUE 4+/5 throughout FUNCTIONAL MOBILITY/ADLS: Transfers Sit-Stand (S) Stand-sit (S) Bed-Chair (S) Chair-bed (S) BATHING Performed prior to OT session (I) DRESSING Dressing LE (I) donning and doffing (B) socks GROOMING Standing at sink (I) TOILETING On toilet (I) EATING (I) BALANCE: Static sitting Normal Dynamic Sitting Normal Static Standing Normal Dynamic Standing Normal SPECIAL TESTS: Daily Activity Limitations Standardized Measure [facility] -PAC ?6 clicks? Daily Activity Inpatient Short Form: Raw score: 22 Standardized score: 47.10 CMS score: 25.80% INFORMED CONSENT/EDUCATION: Pt instructed in purpose of OT Consult and plan of care. ASSESSMENT: Patient is a 83-year-old female referred to occupational therapy services with diagnosis of community-acquired pneumonia and has been on oxygen supplementation and antibiotic treatment. Patient presents with clinical signs and symptoms consistent with dx. Pt was seen for OT consult only. She was able to demonstrate both sitting and standing ADLs at her baseline level of function. Pt states that any (A) she needs her daughter (A) her with. OT will formally discharge pt from skilled OT services. AMPAC score 22, CMS score 25.80% Patient is assessed as a Low 17768 complexity based on the following: History: See Above Examination: See Above Presentation: Evolving Decision Making: AMPAC score 22, CMS score 25.80% GOALS N/A PLAN OF CARE/TREATMENT PLAN: OT consult only DISCHARGE RECOMMENDATIONS Home with daughter when medically cleared per MD. TREATMENT TIME/MINUTES/CODES [id number], [id number], 25 minutes (13:05) Kamilah Noble OTR/L [facility]
--- NOTE | 2018-09-04 15:41 | OTIE_ITS ---
Occupational Therapy Notes Inpatient Occupational Therapy Evaluation Date: 09/04/18 Referring Doctor:Constanza Schultz MD OT Orders: Eval and Treat Precautions: Standard PATIENT PROFILE/ADMITTING DIAGNOSIS: Pt is an 83 year old female who was admitted to [facility] for community acquired pneumonia and is being tx with O2 supplementation and antibiotics. Past Medical History: Hypercalcemia (Chronic) CHF (congestive heart failure) (Chronic) Presence of permanent cardiac pacemaker (Chronic) PAF (paroxysmal atrial fibrillation) (Chronic) Hypertension (Chronic) Pulmonary hypertension (Chronic) Asthma (Chronic) CKD (chronic kidney disease) (Chronic) Chronic kidney disease (Acute) Asthma (Chronic) Atrial fibrillation (Chronic) CHF (congestive heart failure) (Chronic) COPD (chronic obstructive pulmonary disease) (Chronic) Depression (Chronic) HTN (hypertension) (Chronic) Surgical History History of thoracic aortic aneurysm repair (Chronic) AICD (automatic cardioverter/defibrillator) present (Acute) H/O thoracic aortic aneurysm repair (Acute) Pacemaker (Acute) Social History/Home Situation: Pt lives in a private home with her daughter, she is (I) with all ADLs/IADLs. She states that she does not drive. Her PCP had taken her license away and pt states that her daughter is her primary driving. Her lives in a long term and she visits him daily. Her daughter (A) with ADLs in the day and she sleeps on the first floor of her daughters home. Equipment owned/DME: None SUBJECTIVE: Pt was sitting in chair when OT arrived. She was agreeable to OT session reporting that she is (I) at home. OBJECTIVE: General Observation: IV (L) UE, OT nasal cannula Mental Status: A&Ox3 Pain: no c/o pain ROM: RUE WFL L UE WFL STRENGTH: RUE 4+/5 throughout LUE 4+/5 throughout FUNCTIONAL MOBILITY/ADLS: Transfers Sit-Stand (S) Stand-sit (S) Bed-Chair (S) Chair-bed (S) BATHING Performed prior to OT session (I) DRESSING Dressing LE (I) donning and doffing (B) socks GROOMING Standing at sink (I) TOILETING On toilet (I) EATING (I) BALANCE: Static sitting Normal Dynamic Sitting Normal Static Standing Normal Dynamic Standing Normal SPECIAL TESTS: Daily Activity Limitations Standardized Measure [facility] -PAC ?6 clicks? Daily Activity Inpatient Short Form: Raw score: 22 Standardized score: 47.10 CMS score: 25.80% INFORMED CONSENT/EDUCATION: Pt instructed in purpose of OT Consult and plan of care. ASSESSMENT: Patient is a 83-year-old female referred to occupational therapy services with diagnosis of community-acquired pneumonia and has been on oxygen supplementation and antibiotic treatment. Patient presents with clinical signs and symptoms consistent with dx. Pt was seen for OT consult only. She was able to demonstrate both sitting and standing ADLs at her baseline level of function. Pt states that any (A) she needs her daughter (A) her with. OT will formally discharge pt from skilled OT services. AMPAC score 22, CMS score 25.80% Patient is assessed as a Low 36999 complexity based on the following: History: See Above Examination: See Above Presentation: Evolving Decision Making: AMPAC score 22, CMS score 25.80% GOALS N/A PLAN OF CARE/TREATMENT PLAN: OT consult only DISCHARGE RECOMMENDATIONS Home with daughter when medically cleared per MD. TREATMENT TIME/MINUTES/CODES [id number], [id number], 25 minutes (13:05) Kamliah Noble OTR/L [facility]
--- NOTE | 2018-09-04 16:12 | PT.INTREAT ---
Date of service: 09/04/18 Time of Service: 16:13 PT Notes 09/04/18 Inpatient Physical Therapy SUBJECTIVE: Antonia is agreeable to participating in PT. OBJECTIVE: PAIN: No c/o pain BED MOBILITY/TRANSFERS Sit-stand: S Stand-sit: S GAIT Assistive Device: No AD Weight bearing: Full Assist: SBA Distance: Approx. 400' THEREX: Patient completed a standing UE and LE strengthening program, as per flow sheet. Patient was able to tolerate a slight progression in her ther ex program, although c/o LE fatigue. ASSESSMENT: Patient was able to tolerate a progression in gait distance without use of assistive device. She was also able to tolerate a progression in ther ex. Patient would benefit from continued strengthening. PLAN: Continue with PTs POC TREATMENT CODE/TIME: Session 1: 30 minutes; [id number], [id number]
--- NOTE | 2018-09-04 16:26 | PGE_ITS ---
Date of Service Date of service: 09/04/18 Time of Service: 16:25 Assessment and Plan (1) Pneumonia: Current visit: Yes Status: Acute Likely CAP. Speech therapy does not see any evidence of aspiration. Continue zosyn. (2) CHF (congestive heart failure): Current visit: Yes Status: Chronic Evidence of both systolic and diastolic CHF by last echo in 2017, with an ejection fraction of 45 to 50%. Continue IV lasix. Improving. (3) ZAFAR (acute kidney injury): Current visit: Yes Status: Acute ZAFAR in setting of CKD, improved even with diuretics - continue to monitor. No urinary retention. Continue to hold torie-i. (4) Hypertension: Current visit: Yes Status: Chronic Continue norvasc. Continue metoprolol and hydralazine. Hold acei (5) PAF (paroxysmal atrial fibrillation): Current visit: Yes Status: Chronic Back in NSR today. Maintained on antiarrhythmic therapy with amiodarone, as well as BB therapy. Resume apixaban. She is asymptomatic of Afib at this time - will need to follow up with her outpatient staff readiness officer. (6) Blisters of multiple sites: Current visit: Yes Status: Resolved Patient does have bullous pemphigoid, per derm records. This does not appear active. (7) Hyperpigmentation: Current visit: Yes Status: Acute Am cortisol is still pending. I think she likely does have adrenal insufficiency, and that her hyperpigmentation is a sign thereof. Tapering stress dose steroids. Will need to follow up with Dr Colindres (derm) as outpatient. (8) Hypoxia: Current visit: Yes Status: Acute Diurese and treat Pneumonia. (9) Bright red blood per rectum: Current visit: Yes Status: Resolved Continue bowel regimen. Resume anticoagulation. This was due to patient manually disimpacting herself. (10) Constipation: Current visit: Yes Status: Acute As above (11) Adrenal insufficiency: Current visit: Yes Status: Suspected As above (12) Hypercalcemia: Current visit: Yes Status: Acute Possibly iatrogenic as the patient was on calcium and vitamin D supplements. Awaiting PTH, ionized calcium. Vit D level ok. (13) DVT prophylaxis: Current visit: Yes Status: Acute Eliquis resumed. Continue PPI therapy for GI prophylaxis as well. (14) Advance directive on file: Current visit: Yes Status: Acute DNI. Patient is interested in talking about goals of her care - palliative care consulted. (15) Discharge planning issues: Current visit: Yes Status: Acute DNI. Palliative care consulted to discuss goals of care, per patient request. Subjective Interval history since last seen: the patient states her breathing is a little bit better. Today, she feels tired from having so much activity. Denies dizziness, chest pain, nausea, vomiting. Having very little cough - nonproductive. Exam Narrative Exam Narrative: General: Very pleasant, frail elderly female, laying in bed, A&Ox3 Skin: solar keratoses; no blisters. Some chronic hyperpigmentation noted in BUE. HEENT: EOMI, MMM Heart: regularly regular rhythm, no m/r/g Lungs: CTAB GI: abdomen is soft, nontender, mildly distended; midline incision well healed Extremities: +1 edema BLE's, no clubbing/cyanosis; skin exam as above Objective Objective Clinical Data: Abnormal lab results 09/04/18 09/04/18 Range/Units 06:20 06:20 WBC 13.34 H D (4.4-10.8) k/cumm MCHC 31.3 L (32.0-36.0) g/dL RDW 15.2 H (11.7-14.6) % Absolute Neutrophils 12.07 H (1.2-6.7) k/cumm Absolute Lymphocytes 0.71 L (1.2-3.4) k/cumm Anion Gap 11.3 H (3-11) mmol/L BUN 48 H (7-18) mg/dL Creatinine 1.52 H (0.55-1.02) mg/dL Calcium 10.4 H (8.5-10.1) mg/dL Vital Signs Temperature 36.7 C 09/04/18 16:14 Temperature Source Tympanic 09/04/18 16:14 Pulse 68 09/04/18 16:14 Pulse Rhythm Regular 09/04/18 09:34 Pulse 70 09/02/18 10:40 Respiratory Rate 17 09/04/18 16:14 Respiratory Effort Non-Labored 09/04/18 09:34 Respiratory Depth Normal 09/04/18 09:34 Respiratory Pattern Normal 09/04/18 09:34 Blood Pressure 136/78 09/04/18 16:14 Blood Pressure Mean 68 09/02/18 10:40 Blood Pressure Position Sitting 09/01/18 16:02 Pulse Oximetry 95 09/04/18 16:14 Oxygen Delivery Method Nasal Cannula 09/04/18 16:14 Oxygen Flow Rate 2 09/04/18 16:14 Pain Level 0 09/04/18 07:31 Intake & Output 09/03/18 09/04/18 09/04/18 23:59 11:59 23:59 Intake Total 700 / 1560 150 / 390 240 / 390 Balance 700 / 860 150 / 390 240 / 390 Weight 53.5 kg Intake: IV 10 120 100 / 100 Oral 690 / 1440 50 / 290 240 / 290 Other: Urine Color Yellow Yellow Urine Appearance Clear Clear Urine Odor None Voiding Methods Toilet Toilet Laboratory Results WBC 13.34 k/cumm (4.4-10.8) H D 09/04/18 06:20 RBC 4.22 m/cumm (4.00-5.20) 09/04/18 06:20 Hgb 12.1 g/dL (12.0-15.5) 09/04/18 06:20 Hct 38.6 % (36.0-46.0) 09/04/18 06:20 MCV 91.5 fL (80-95) 09/04/18 06:20 MCH 28.7 pg (27.0-33.0) 09/04/18 06:20 MCHC 31.3 g/dL (32.0-36.0) L 09/04/18 06:20 RDW 15.2 % (11.7-14.6) H 09/04/18 06:20 Plt Count 363 x1000/uL (130-400) 09/04/18 06:20 MPV 9.0 fL (8.0-11.0) 09/04/18 06:20 Immature Gran % 0.4 09/04/18 06:20 Neutrophils % 90.5 09/04/18 06:20 Lymphocytes % 5.3 09/04/18 06:20 Monocytes % 3.7 09/04/18 06:20 Eosinophils % 0.0 09/04/18 06:20 Basophils % 0.1 09/04/18 06:20 Absolute Neutrophils 12.07 k/cumm (1.2-6.7) H 09/04/18 06:20 Absolute Lymphocytes 0.71 k/cumm (1.2-3.4) L 09/04/18 06:20 Absolute Monocytes 0.49 k/cumm (0.11-0.7) 09/04/18 06:20 Absolute Eosinophils 0.00 k/cumm (0.0-0.7) 09/04/18 06:20 Absolute Basophils 0.01 k/cumm (0.0-0.2) 09/04/18 06:20 Sodium 139 mmol/L (136-145) 09/04/18 06:20 Potassium 3.9 mmol/L (3.5-5.1) 09/04/18 06:20 Chloride 104 mmol/L (98-107) 09/04/18 06:20 Carbon Dioxide 23.7 mmol/L (21.0-32.0) 09/04/18 06:20 Anion Gap 11.3 mmol/L (3-11) H 09/04/18 06:20 BUN 48 mg/dL (7-18) H 09/04/18 06:20 Creatinine 1.52 mg/dL (0.55-1.02) H 09/04/18 06:20 Estimated GFR/1.73 m2 32.74 (mL/min/1.73m2) 09/04/18 06:20 Glucose 98 mg/dL (70-100) 09/04/18 06:20 Calcium 10.4 mg/dL (8.5-10.1) H 09/04/18 06:20 Magnesium 2.0 mg/dL (1.8-2.4) 09/04/18 06:20 Total Bilirubin 0.3 mg/dL (0.2-1.0) 09/03/18 06:40 Conjugated Bilirubin 0.08 mg/dL (0.00-0.20) 09/03/18 06:40 AST 32 U/L (15-37) 09/03/18 06:40 ALT 12 U/L (12-78) 09/03/18 06:40 Alkaline Phosphatase 101 U/L (46-116) 09/03/18 06:40 Troponin I < 0.02 ng/mL (0.00-0.06) 09/01/18 09:00 NT-Pro-B Natriuret Pep 2537 pg/mL (-299) H 09/01/18 09:00 Total Protein 7.0 g/dL (6.4-8.2) 09/03/18 06:40 Albumin 2.1 g/dL (3.4-5.0) L 09/03/18 06:40 25-OH Vitamin D Total 35.4 ng/ml (30-100) 09/03/18 06:40 TSH 0.74 uIU/mL (0.358-3.74) 09/04/18 06:20
[2018-09-04] MEDS: Acetaminophen 325 MG TAB PO (19:22)
[2018-09-04] MEDS: Apixaban 2.5 MG TAB PO (19:23)
--- NOTE | 2018-09-04 20:09 | W.PALLCONSUL ---
Date of service: 09/04/18 Time of Service: 19:09 History of Present Illness Chief Complaint: Patient wants to talk about goals of care Narrative: Patient is an 83-year-old woman hospitalized for pneumonia and CHF. Past medical history significant for CHF, AK I, PAF, hypertension, hypercalcemia, and possible adrenal insufficiency. She does have advanced directives that state that she is a DNI, but she wanted further discussion about end-of-life decisions. Dr. Schultz asked me to come and talk to her about her choices. Consults Consult date: 09/04/18 Requesting physician: Constanza Schultz Assessment and Plan (1) Adrenal insufficiency: Current visit: Yes Status: Suspected (2) ZAFAR (acute kidney injury): Current visit: Yes Status: Acute (3) Pneumonia: Current visit: Yes Status: Acute We discussed at length what she wanted should her heart stop. She did not want CPR. She said her daughter knows this. She would not want chest compressions, electricity to try to restart her heart or intubation. She signed her COLST form as a DNR/DNI. I am happy to meet with Mrs Win again if she would like to discuss other issues regarding end of life issues in the future. I have spent more than 50% of time in counseling with this patient. This document was created by [facility] and may contain grammatical and translation errors. Review of Systems Constitutional Reports chills, Reports fever(s), Reports lethargy and Reports malaise Comments: Patient states that she felt poorly prior to coming to the hospital, but every day she is doing better and better. She has been getting physical therapy and that has been helpful. She is quite tired today but thinks is because of all the activity that she has been doing. She states that her appetite is improving. She is able to breathe better. Her bowels are working better although she tends towards constipation. She does not feel depressed. She is anxious to go home from the hospital. [facility] Medical History Hypercalcemia (Chronic) CHF (congestive heart failure) (Chronic) Presence of permanent cardiac pacemaker (Chronic) PAF (paroxysmal atrial fibrillation) (Chronic) Hypertension (Chronic) Pulmonary hypertension (Chronic) Asthma (Chronic) CKD (chronic kidney disease) (Chronic) Chronic kidney disease (Acute) Asthma (Chronic) Atrial fibrillation (Chronic) CHF (congestive heart failure) (Chronic) COPD (chronic obstructive pulmonary disease) (Chronic) Depression (Chronic) HTN (hypertension) (Chronic) Surgical History History of thoracic aortic aneurysm repair (Chronic) AICD (automatic cardioverter/defibrillator) present (Acute) H/O thoracic aortic aneurysm repair (Acute) Pacemaker (Acute) Social History Smoking/Tobacco Use Status: Never Alcohol Intake: never Substance use type: does not use Do you feel safe at home: Yes Do you feel safe in your relationship?: Yes Exam Narrative Exam Narrative: Patient is lying in bed. She was enthusiastic about meeting with me. She asked me to turn on the lights so that she could better see me. She was oriented to person place and time. Const General: cooperative and no acute distress Nutritional Appearance: average body habitus Orientation: oriented x3 Resp Effort & Inspection: normal respiratory effort and able to speak in complete sentences Auscultation: crackles Other: Her breathing was unlabored during our long discussion Cardio Rhythm: abnormal rhythm Heart Sounds: murmur Results Last Vital Signs Temp 98.1 F 09/04/18 16:14 Pulse 68 09/04/18 16:14 Resp 17 09/04/18 16:14 BP 136/78 09/04/18 16:14 Pulse Ox 95 09/04/18 16:14 Labs : 09/04/18 06:20 09/04/18 06:20 Laboratory Results - last 24 hr 09/03/18 09/04/18 09/04/18 06:40 06:20 06:20 WBC RBC Hgb Hct MCV MCH MCHC RDW Plt Count MPV Immature Gran % Neutrophils % Lymphocytes % Monocytes % Eosinophils % Basophils % Absolute Neutrophils Absolute Lymphocytes Absolute Monocytes Absolute Eosinophils Absolute Basophils Sodium 139 Potassium 3.9 Chloride 104 Carbon Dioxide 23.7 Anion Gap 11.3 H BUN 48 H Creatinine 1.52 H Estimated GFR/1.73 m2 32.74 Glucose 98 Calcium 10.4 H Magnesium 2.0 25-OH Vitamin D Total 35.4 TSH 0.74 09/04/18 06:20 WBC 13.34 H D RBC 4.22 Hgb 12.1 Hct 38.6 MCV 91.5 MCH 28.7 MCHC 31.3 L RDW 15.2 H Plt Count 363 MPV 9.0 Immature Gran % 0.4 Neutrophils % 90.5 Lymphocytes % 5.3 Monocytes % 3.7 Eosinophils % 0.0 Basophils % 0.1 Absolute Neutrophils 12.07 H Absolute Lymphocytes 0.71 L Absolute Monocytes 0.49 Absolute Eosinophils 0.00 Absolute Basophils 0.01 Sodium Potassium Chloride Carbon Dioxide Anion Gap BUN Creatinine Estimated GFR/1.73 m2 Glucose Calcium Magnesium 25-OH Vitamin D Total TSH
[2018-09-05 03:20] VITALS: BP 153/68; PULSE 63; RESP 19; TEMP 37.1; O2SAT 95
[2018-09-05] MEDS: PIPERACILLIN/TAZO 3.375 GM in Normal Saline 50 ML IVPB ×3 (03:55→19:53)
[2018-09-05 07:24] LABS: Absolute Basophil Count 0.01 k/cumm (0.0-0.2); Absolute Eosinophil Count 0.05 k/cumm (0.0-0.7); Absolute Lymphocyte Count 1.06 k/cumm (1.2-3.4); Absolute Monocyte Count 0.51 k/cumm (0.11-0.7); Absolute Neutrophil Count 10.18 k/cumm (1.2-6.7); Basophils % 0.1; Eosinophils % 0.4; HCT 41.7 % (36.0-46.0); HGB 13.1 g/dL (12.0-15.5); Immature Grans % 0.8; Lymphocytes % 8.9; Mean Corp. HGB Concentration 31.4 g/dL (32.0-36.0); Mean Corpuscular Hemoglobin 28.7 pg (27.0-33.0); Mean Corpuscular Volume 91.2 fL (80-95); Monocytes % 4.3; Neutrophils % 85.5; Platelet Count 386 x1000/uL (130-400); RBC 4.57 m/cumm (4.00-5.20); RBC Distribution Width 15.1 % (11.7-14.6); White Blood Cell Count 11.91 k/cumm (4.4-10.8)
[2018-09-05 07:28] VITALS: BP 174/86; PULSE 76; RESP 16; TEMP 36.7; O2SAT 91
[2018-09-05 07:39] LABS: Anion Gap 10.8 mmol/L (3-11); BUN 46 mg/dL (7-18); CO2 25.2 mmol/L (21.0-32.0); CREATININE 1.52 mg/dL (0.55-1.02); Calcium 10.4 mg/dL (8.5-10.1); Chloride 100 mmol/L (98-107); Estimated GFR 32.74 (mL/min/1.73m2); Glucose 100 mg/dL (70-100); Magnesium 2.2 mg/dL (1.8-2.4); Potassium 3.7 mmol/L (3.5-5.1); Sodium 136 mmol/L (136-145)
[2018-09-05] MEDS: Senna TAB 1 TAB PO ×2 (07:53→19:53)
[2018-09-05] MEDS: amLODIPine 5 MG TAB PO (07:53)
[2018-09-05] MEDS: Docusate Sodium 100 MG CAP PO ×2 (07:53→19:53)
[2018-09-05] MEDS: Hydrocortisone SOD SUC. 100 MG VIAL 50 MG IVP (07:53)
[2018-09-05] MEDS: hydrALAZINE 10 MG TAB PO ×2 (07:53→19:53)
[2018-09-05] MEDS: Furosemide 20 MG/2 ML VIAL IVP ×3 (07:53→16:25)
[2018-09-05] MEDS: Amiodarone 200 MG TAB 100 MG PO (07:53)
[2018-09-05] MEDS: Apixaban 2.5 MG TAB PO ×2 (07:53→19:53)
[2018-09-05] MEDS: Pantoprazole 40 MG TABCR PO (07:53)
[2018-09-05] MEDS: Metoprolol 25 MG TAB PO ×2 (07:53→19:52)
[2018-09-05] MEDS: cloNIDine 0.1 MG TAB PO ×2 (07:53→19:52)
[2018-09-05 10:15] VITALS: O2SAT 91
--- NOTE | 2018-09-05 10:42 | PDOC.CMPRO ---
Care Management Progress Note S/O-Met with Antonia today.She was very pleasant, states she looks forward to when she can go home so she can go see her . No change to overall plan. A-83 yo woman admitted with pneumonia and CHF. P-D/C home as per MD. She will follow up with PCP and head custodian as directed. She will transport home via car with her daughter, Orly.
[2018-09-05 11:29] VITALS: BP 163/66; PULSE 69; RESP 18; TEMP 36.5; O2SAT 96
--- NOTE | 2018-09-05 13:01 | PT.INTREAT ---
Date of service: 09/05/18 Time of Service: 13:01 PT Notes Inpatient Physical Therapy Treatment Note [facility] Date: 09/05/17 PRECAUTIONS: Fall SUBJECTIVE: Antonia reports that she was fatigued and her legs were tired following PT sessions yesterday. OBJECTIVE: PAIN: No c/o pain BED MOBILITY/TRANSFERS Sit-stand: S Stand-sit: S GAIT Assistive Device: No AD Weight bearing: Full Assist: SBA Distance: 75' x2 in a.m.; 200' in p.m. Deviation: Seated rest x1 in a.m., SOB VITALS: SaO2: 82-92% on 1L-4L O2 via NC with activity THEREX: Patient completed LAQ as well as functional scw-vh-efeor exercises in a.m., and LAQ, HF, and HAbd exercises to fatigue in p.m., as per flow sheet. She required significant rests between exercises due to SOB and decreased O2 saturations. STAIRS: Up/down 9x6 and 6x6 using 1 rail and a step-over pattern with supervision ASSESSMENT: Patient tolerated session with c/o SOB with activity. She was able to tolerate a progression in stair training, requiring supervision only. . Patient would benefit from continued conditioning for improved cardiovascular endurance and activity tolerance. PLAN: Continue with PT's POC TREATMENT CODE/TIME: Session 1: 30 minutes; [id number], [id number] Session 2: 25 minutes; 69730, 70501
--- NOTE | 2018-09-05 13:59 | CMPROGNOTE_ITS ---
Care Management Progress Note S/O-Met with Antonia today.She was very pleasant, states she looks forward to when she can go home so she can go see her . No change to overall plan. A-83 yo woman admitted with pneumonia and CHF. P-D/C home as per MD. She will follow up with PCP and eligibility technician as directed. She will transport home via car with her daughter, Orly.
[2018-09-05] MEDS: Normal Saline Flush 10 ML SYR IVP ×3 (15:10→19:53)
[2018-09-05 15:39] VITALS: BP 134/72; PULSE 70; RESP 18; TEMP 37.2; O2SAT 93
--- NOTE | 2018-09-05 19:19 | W.PM.PROGNOT ---
Date of Service Date of service: 09/05/18 Time of Service: 15:45 Assessment and Plan (1) Pneumonia: Current visit: Yes Status: Acute Likely CAP. Speech therapy does not see any evidence of aspiration. Continue zosyn. Would repeat CXR in am if still short of breath tomorrow. (2) CHF (congestive heart failure): Current visit: Yes Status: Chronic Evidence of both systolic and diastolic CHF by last echo in 2017, with an ejection fraction of 45 to 50%. I feel the patient needs more IV lasix today - extra dose given (3) ZAFAR (acute kidney injury): Current visit: Yes Status: Acute ZAFAR in setting of CKD, improved even with diuretics, and remains stable x 48 hours - continue to monitor. No urinary retention. Continue to hold torie-i. (4) Hypertension: Current visit: Yes Status: Chronic Continue norvasc. Continue metoprolol and hydralazine. Hold acei (5) PAF (paroxysmal atrial fibrillation): Current visit: Yes Status: Chronic Back in NSR Maintained on antiarrhythmic therapy with amiodarone, as well as BB therapy. Continue apixaban. She is asymptomatic of Afib at this time - will need to follow up with her outpatient emergency vehicle operator. (6) Blisters of multiple sites: Current visit: Yes Status: Resolved H/o - due to bullous pemphigoid, per derm records. This does not appear active. Follow up as outpatient. (7) Hyperpigmentation: Current visit: Yes Status: Acute Am cortisol is still pending. Tapering stress dose steroids. Will need to follow up with Dr Colindres (derm) as outpatient. Would also strongly recommend an endocrinology referral for adrenal insufficiency. (8) Hypoxia: Current visit: Yes Status: Acute Diurese and treat Pneumonia. (9) Bright red blood per rectum: Current visit: Yes Status: Resolved Continue bowel regimen. Continue anticoagulation. This was due to patient manually disimpacting herself. (10) Constipation: Current visit: Yes Status: Acute As above (11) Adrenal insufficiency: Current visit: Yes Status: Suspected As above (12) Hypercalcemia: Current visit: Yes Status: Acute Possibly iatrogenic as the patient was on calcium and vitamin D supplements. Awaiting PTH, ionized calcium. Vit D level ok. (13) DVT prophylaxis: Current visit: Yes Status: Acute Eliquis resumed. Continue PPI therapy for GI prophylaxis as well. (14) Advance directive on file: Current visit: Yes Status: Acute DNR/DNI - COLST signed Met with palliative care (15) Discharge planning issues: Current visit: Yes Status: Acute DNR/DNI Nearing discharge Subjective Interval history since last seen: Ms Win states she is surprised that today she feels worse, but she does. She had a lot more shortness of breath on exertion. She denies dizziness, chest pain, nausea, vomiting. Exam Narrative Exam Narrative: General: Very pleasant, frail elderly female, sitting in a chair, A&Ox3 Skin: solar keratoses; no blisters. Some chronic hyperpigmentation noted in BUE. HEENT: EOMI, MMM Heart: regularly regular rhythm, no m/r/g Lungs: I hear quiet rales in BLL GI: abdomen is soft, nontender, mildly distended; midline incision well healed Extremities: +1 edema BLE's, no clubbing/cyanosis; skin exam as above Objective Objective Clinical Data: Abnormal lab results 09/05/18 09/05/18 Range/Units 06:30 06:30 WBC 11.91 H (4.4-10.8) k/cumm MCHC 31.4 L (32.0-36.0) g/dL RDW 15.1 H (11.7-14.6) % Absolute Neutrophils 10.18 H (1.2-6.7) k/cumm Absolute Lymphocytes 1.06 L (1.2-3.4) k/cumm BUN 46 H (7-18) mg/dL Creatinine 1.52 H (0.55-1.02) mg/dL Calcium 10.4 H (8.5-10.1) mg/dL Vital Signs Temperature 37.2 C 09/05/18 15:39 Temperature Source Tympanic 09/05/18 15:39 Pulse 70 09/05/18 15:39 Pulse Rhythm Regular 09/05/18 08:35 Pulse 70 09/02/18 10:40 Respiratory Rate 18 09/05/18 15:39 Respiratory Effort Non-Labored 09/05/18 08:35 Respiratory Depth Normal 09/05/18 08:35 Respiratory Pattern Normal 09/05/18 08:35 Blood Pressure 134/72 09/05/18 15:39 Blood Pressure Mean 68 09/02/18 10:40 Blood Pressure Position Sitting 09/01/18 16:02 Pulse Oximetry 93 L 09/05/18 15:39 Oxygen Delivery Method Nasal Cannula 09/05/18 15:39 Oxygen Flow Rate 1 09/05/18 15:39 Pain Level 1 09/05/18 11:29 Intake & Output 09/04/18 09/05/18 09/05/18 23:59 11:59 23:59 Intake Total 660 / 810 740 / 1280 540 / 1280 Balance 660 / 810 740 / 1280 540 / 1280 Weight 53.9 kg Intake: IV 120 / 220 50 / 100 50 / 100 Oral 540 / 590 690 / 1180 490 / 1180 Other: Urine Color Yellow Urine Appearance Clear Clear Comment no hat. Stool Size Small Moderate Stool Characteristics Soft Formed Formed Voiding Methods Toilet Toilet Toilet Laboratory Results WBC 11.91 k/cumm (4.4-10.8) H 09/05/18 06:30 RBC 4.57 m/cumm (4.00-5.20) 09/05/18 06:30 Hgb 13.1 g/dL (12.0-15.5) 09/05/18 06:30 Hct 41.7 % (36.0-46.0) 09/05/18 06:30 MCV 91.2 fL (80-95) 09/05/18 06:30 MCH 28.7 pg (27.0-33.0) 09/05/18 06:30 MCHC 31.4 g/dL (32.0-36.0) L 09/05/18 06:30 RDW 15.1 % (11.7-14.6) H 09/05/18 06:30 Plt Count 386 x1000/uL (130-400) 09/05/18 06:30 MPV 9.0 fL (8.0-11.0) 09/05/18 06:30 Immature Gran % 0.8 09/05/18 06:30 Neutrophils % 85.5 09/05/18 06:30 Lymphocytes % 8.9 09/05/18 06:30 Monocytes % 4.3 09/05/18 06:30 Eosinophils % 0.4 09/05/18 06:30 Basophils % 0.1 09/05/18 06:30 Absolute Neutrophils 10.18 k/cumm (1.2-6.7) H 09/05/18 06:30 Absolute Lymphocytes 1.06 k/cumm (1.2-3.4) L 09/05/18 06:30 Absolute Monocytes 0.51 k/cumm (0.11-0.7) 09/05/18 06:30 Absolute Eosinophils 0.05 k/cumm (0.0-0.7) 09/05/18 06:30 Absolute Basophils 0.01 k/cumm (0.0-0.2) 09/05/18 06:30 Sodium 136 mmol/L (136-145) 09/05/18 06:30 Potassium 3.7 mmol/L (3.5-5.1) 09/05/18 06:30 Chloride 100 mmol/L (98-107) 09/05/18 06:30 Carbon Dioxide 25.2 mmol/L (21.0-32.0) 09/05/18 06:30 Anion Gap 10.8 mmol/L (3-11) 09/05/18 06:30 BUN 46 mg/dL (7-18) H 09/05/18 06:30 Creatinine 1.52 mg/dL (0.55-1.02) H 09/05/18 06:30 Estimated GFR/1.73 m2 32.74 (mL/min/1.73m2) 09/05/18 06:30 Glucose 100 mg/dL (70-100) 09/05/18 06:30 Calcium 10.4 mg/dL (8.5-10.1) H 09/05/18 06:30 Magnesium 2.2 mg/dL (1.8-2.4) 09/05/18 06:30 Total Bilirubin 0.3 mg/dL (0.2-1.0) 09/03/18 06:40 Conjugated Bilirubin 0.08 mg/dL (0.00-0.20) 09/03/18 06:40 AST 32 U/L (15-37) 09/03/18 06:40 ALT 12 U/L (12-78) 09/03/18 06:40 Alkaline Phosphatase 101 U/L (46-116) 09/03/18 06:40 Troponin I < 0.02 ng/mL (0.00-0.06) 09/01/18 09:00 NT-Pro-B Natriuret Pep 2537 pg/mL (-299) H 09/01/18 09:00 Total Protein 7.0 g/dL (6.4-8.2) 09/03/18 06:40 Albumin 2.1 g/dL (3.4-5.0) L 09/03/18 06:40 25-OH Vitamin D Total 35.4 ng/ml (30-100) 09/03/18 06:40 TSH 0.74 uIU/mL (0.358-3.74) 09/04/18 06:20
[2018-09-05] MEDS: Acetaminophen 325 MG TAB PO (19:51)
[2018-09-05] MEDS: Mylanta Suspension 30 ML CUP PO (19:51)
[2018-09-05] MEDS: Hydrocortisone SOD SUC. 100 MG VIAL 25 MG IVP (19:52)
[2018-09-05 20:39] VITALS: BP 119/83; PULSE 65; RESP 18; TEMP 36.3; O2SAT 91
[2018-09-06] VITALS (7 sets, daily range): BP systolic 120–165; BP diastolic 66–77; PULSE 60–89; RESP 16–24; TEMP 36.1–36.6; O2SAT 85–95
[2018-09-06] MEDS: Normal Saline Flush 10 ML SYR IVP ×3 (03:56→12:58)
[2018-09-06] MEDS: PIPERACILLIN/TAZO 3.375 GM in Normal Saline 50 ML IVPB ×3 (03:56→19:38)
[2018-09-06 06:53] LABS: Abs Immature Grans 0.23 k/cumm (0.0-0.09); Absolute Basophil Count 0.01 k/cumm (0.0-0.2); Absolute Monocyte Count 0.79 k/cumm (0.11-0.7); Basophils % 0.1; Eosinophils % 2.2; HCT 39.1 % (36.0-46.0); HGB 12.1 g/dL (12.0-15.5); Immature Grans % 1.5; Lymphocytes % 10.1; Mean Corp. HGB Concentration 30.9 g/dL (32.0-36.0); Mean Corpuscular Hemoglobin 28.4 pg (27.0-33.0); Mean Corpuscular Volume 91.8 fL (80-95); Mean Platelet Volume 9.1 fL (8.0-11.0); Monocytes % 5.3; Neutrophils % 80.8; Platelet Count 374 x1000/uL (130-400); RBC 4.26 m/cumm (4.00-5.20); RBC Distribution Width 14.9 % (11.7-14.6); White Blood Cell Count 14.88 k/cumm (4.4-10.8)
[2018-09-06 07:01] LABS: Absolute Eosinophil Count 0.33 k/cumm (0.0-0.7); Absolute Neutrophil Count 12.02 k/cumm (1.2-6.7)
[2018-09-06 07:14] LABS: Anion Gap 8.2 mmol/L (3-11); BUN 44 mg/dL (7-18); CO2 27.8 mmol/L (21.0-32.0); CREATININE 1.75 mg/dL (0.55-1.02); Chloride 101 mmol/L (98-107); Estimated GFR 27.83 (mL/min/1.73m2); Glucose 90 mg/dL (70-100); Potassium 3.6 mmol/L (3.5-5.1); Sodium 137 mmol/L (136-145)
[2018-09-06] MEDS: Hydrocortisone SOD SUC. 100 MG VIAL 25 MG IVP ×2 (08:56→19:36)
[2018-09-06] MEDS: Metoprolol 25 MG TAB PO ×2 (08:57→19:37)
[2018-09-06] MEDS: hydrALAZINE 10 MG TAB PO ×2 (08:57→19:36)
[2018-09-06] MEDS: Docusate Sodium 100 MG CAP PO ×2 (08:57→19:36)
[2018-09-06] MEDS: amLODIPine 5 MG TAB PO (08:57)
[2018-09-06] MEDS: Furosemide 20 MG/2 ML VIAL IVP (08:57)
[2018-09-06] MEDS: Apixaban 2.5 MG TAB PO ×2 (08:58→19:37)
[2018-09-06] MEDS: cloNIDine 0.1 MG TAB PO ×2 (08:58→19:37)
[2018-09-06] MEDS: Amiodarone 200 MG TAB 100 MG PO (08:58)
[2018-09-06] MEDS: Senna TAB 1 TAB PO ×2 (08:58→19:37)
[2018-09-06] MEDS: Pantoprazole 40 MG TABCR PO (08:58)
--- NOTE | 2018-09-06 10:43 | CMPROGNOTE_ITS ---
Care Management Progress Note S/O: Antonia remains pleasant in interaction. CM will continue to follow-no change to overall discharge plan. A: 83 year old female admitted to [facility] 09/01/18 for Pneumonia, CHF P: Antonia will return home when ready per MD. She will follow up with her PCP and plan of care as prescribed including likely follow up with her outpatient director of dietary for possible elective cardioversion-no additional services anticipated at this time. She will transport via private vehicle with her daughter, Orly.
--- NOTE | 2018-09-06 11:24 | DI.RAD_ITS ---
SYMPTOMS/DIAGNOSIS: F/U CHF/PNEUMONIA PORTABLE CHEST: Comparison 03/05/16 and 09/03/18. The heart size is stable. There is tortuosity of the thoracic aorta. The pacing wires are stable in position. Sternal wires are in place. There has been significant improvement in the aeration of the left lung with clearing of the infiltrates. There are persistent infiltrates seen in the right lung. No new infiltrates, effusions or pneumothoraces are identified. IMPRESSION: Overall improvement in appearance of the lung particularly on the left. Persistent right infiltrates are seen.
--- NOTE | 2018-09-06 16:24 | PT.INTREAT ---
Date of service: 09/06/18 Time of Service: 10:30 PT Notes Inpatient Physical Therapy Treatment Note [facility] Date: 09/06/18 PRECAUTIONS: Monitor SaO2 SUBJECTIVE: Antonia states that she continues to feel weak in her LE's following PT. OBJECTIVE: PAIN: No complaints of pain BED MOBILITY/TRANSFERS Supine-sit: I Sit-stand: S Stand-sit: S GAIT Assistive Device: No AD Weight bearing: Full Assist: S Distance: 200' VITALS: Session performed in collaboration with RT, please see their note for specific vital signs THEREX: Patient completed a LE strengthening program, as per flow sheet. TOILETING: Patient toileted independently. ASSESSMENT: Patient tolerated session with some c/o of SOB activity. Patient would benefit from continued conditioning for improved cardiovascular endurance and activity tolerance. PLAN: Continue with PTs POC TREATMENT CODE/TIME: Session 1: 25 minutes; [id number], [id number]
--- NOTE | 2018-09-06 18:15 | DI.CT_ITS ---
SYMPTOM/DIAGNOSIS: PERSISTENT RT SIDED INFILTRATE CHEST CT: CT examination of the chest was performed without contrast administration. Note is made of multiple sternal sutures. Ascending aorta is mildly/borderline ectatic at 38 mm. Main pulmonary artery mildly dilated at 32 mm. consistent with pulmonary arterial hypertension. Transvenous cardiac pacemaker noted in position. Images obtained through the upper abdomen show unremarkable appearance of visualized portions of the liver, spleen and kidneys. There is an enlarged pretracheal lymph node measuring up to about 22 mm. in diameter which is nonspecific. A few other prominent/mildly enlarged nodes are noted in various mediastinal locations, nonspecific finding which may be related to infectious process. There are diffuse bilateral lung radiodensities which can be characterized as primarily ground glass but with some interstitial components, right greater than left. The findings are nonspecific but may represent pneumonitis. The possibility of mild superimposed pulmonary edema not excluded. No gross pleural effusion is seen. CONCLUSION: Cardiomegaly, ectatic ascending aorta, aortic arch and main pulmonary artery. Diffuse bilateral, right greater than left, intrapulmonary radiodensities, differential diagnoses wide but probably the most likely cause is infectious process. Appropriate follow up studies requested.
--- NOTE | 2018-09-06 18:32 | DI.VRAD_ITS ---
EXAM: CT Chest Without Contrast EXAM DATE/TIME: 09/06/2018 3:57 PM CLINICAL HISTORY: 83 years old, female; Signs and symptoms; Other: Persistant right sided lung infiltrate. TECHNIQUE: Imaging protocol: Axial computed tomography images of the chest without intravenous contrast. Coronal and sagittal reformatted images were created and reviewed. Radiation optimization: All CT scans at this facility use at least one of these dose optimization techniques: automated exposure control; mA and/or kV adjustment per patient size (includes targeted exams where dose is matched to clinical indication); or iterative reconstruction. COMPARISON: CR XR PORTABLE CHEST AP 09/06/2018 11:21 AM FINDINGS: Lungs: There is significant ground glass opacities throughout the right lung with interstitial edema. Similar but less extensive changes are present involving the left lung. 5 mm right lower lobe pulmonary nodule in the costophrenic sulcus. Pleural space: Normal. No pneumothorax. No pleural effusion. Heart: Cardiomegaly. Pulmonary arteries: Enlarged pulmonary artery measuring 32 mm consistent with pulmonary arterial hypertension. Aorta: Ectatic ascending aorta present measuring 3.8 cm. There is dense calcific atherosclerosis of the thoracic aorta. Lymph nodes: There is an enlarged pretracheal lymph node present measuring 15 mm in short axis. Bones/joints: There are sternal wires consistent with previous sternotomy incision. As a bone infarct versus enchondroma in the right proximal humerus. Degenerative changes of the thoracic spine without acute osseous abnormality. There is curvature of thoracic spine apex to the right. Soft tissues: Unremarkable. Pancreas: Numerous diffuse pancreatic calcifications consistent with chronic pancreatitis. IMPRESSION: 1. Diffuse significant bilateral groundglass opacities throughout the right lung with interstitial edema. Similar but less extensive changes are present involving the left lung. Differential diagnosis would include but not be limited to pulmonary edema, infectious origins, interstitial lung disease, and alveolar hemorrhage. Clinical correlation is required. 2. Pulmonary artery hypertension with an ectatic atherosclerotic ascending and thoracic aorta. 3. Enlarged pathologic pretracheal lymph node. 4. 5 mm right lower lobe pulmonary nodule. 5. Chronic pancreatitis Dictated and Authenticated by: Donald Granda MD. Ordering:ALICIA Apodaca MD
--- NOTE | 2018-09-06 20:29 | W.PM.PROGNOT ---
Date of Service Date of service: 09/06/18 Time of Service: 12:00 Assessment and Plan (1) Pneumonia: Current visit: Yes Status: Acute Likely CAP, but reviewing the images on CT, I am not sure that this is a regular CAP. Will discuss with pulmonlogy - pushing images to [facility] For now, continue zosyn and treat possible pulmonary edema. ?Amiodarone pulmonary toxicity. (2) CHF (congestive heart failure): Current visit: Yes Status: Chronic Evidence of both systolic and diastolic CHF by last echo in 2017, with an ejection fraction of 45 [address]%. CT with suggestion of pulmonary edema as well. Lasix transitioned to drip. Monitor I/O's and daily weights. (3) ZAFAR (acute kidney injury): Current visit: Yes Status: Acute ZAFAR in setting of CKD, monitor on lasix gtt. Previously improved with diuresis. (4) Hypertension: Current visit: Yes Status: Chronic Continue norvasc. Continue metoprolol and hydralazine. Hold acei (5) PAF (paroxysmal atrial fibrillation): Current visit: Yes Status: Chronic Back in NSR Maintained on antiarrhythmic therapy with amiodarone, as well as BB therapy. Continue apixaban. I am concerned she might have some amiodarone pulmonary toxicity however - will discuss with pulmonlogy. She is asymptomatic of Afib at this time - will need to follow up with her outpatient porcelain enamel sprayer. (6) Blisters of multiple sites: Current visit: Yes Status: Resolved H/o - due to bullous pemphigoid, per derm records. This does not appear active. Follow up as outpatient. (7) Hyperpigmentation: Current visit: Yes Status: Acute am cortisol consistent with adrenal insufficiency. Will need to follow up with Dr Colindres (derm) as outpatient. Referral to endocrinology referral for adrenal insufficiency. on discharge will need to be on a prolonged taper. (8) Hypoxia: Current visit: Yes Status: Acute Diurese and treat Pneumonia. (9) Bright red blood per rectum: Current visit: Yes Status: Resolved Continue bowel regimen. Continue anticoagulation. This was due to patient manually disimpacting herself. (10) Constipation: Current visit: Yes Status: Acute As above (11) Adrenal insufficiency: Current visit: Yes Status: Suspected As above Confirmed by am cortisol (12) Hypercalcemia: Current visit: Yes Status: Acute Possibly iatrogenic as the patient was on calcium and vitamin D supplements. PTH wnl. Ionized calcium only slightly above nml level. Will need to be monitored over time. (13) DVT prophylaxis: Current visit: Yes Status: Acute Eliquis (therapeutic for Afib). Continue PPI therapy for GI prophylaxis as well. (14) Advance directive on file: Current visit: Yes Status: Acute DNR/DNI - COLST signed Met with palliative care (15) Discharge planning issues: Current visit: Yes Status: Acute DNR/DNI Subjective Interval history since last seen: Ms Win states she does not feel any better today. Her breathing is worse. She states she feels worse today than when she first came in. Her legs remain edematous. She denies dizziness, chest pain, nausea, vomiting. Complains of constipation. Exam Narrative Exam Narrative: General: Very pleasant, frail elderly female, sitting in a chair, A&Ox3 Skin: solar keratoses; no blisters. Some chronic hyperpigmentation noted in BUE. HEENT: EOMI, MMM Heart: regularly regular rhythm, no m/r/g Lungs: coarse breath sounds with bibasilar rales GI: abdomen is soft, nontender, mildly distended; midline incision well healed Extremities: +1 edema BLE's, no clubbing/cyanosis; skin exam as above Objective Objective Clinical Data: Abnormal lab results 09/02/18 09/06/18 09/06/18 Range/Units 06:05 06:08 06:08 WBC 14.88 H (4.4-10.8) k/cumm MCHC 30.9 L (32.0-36.0) g/dL RDW 14.9 H (11.7-14.6) % Absolute Neutrophils 12.02 H (1.2-6.7) k/cumm Absolute Monocytes 0.79 H (0.11-0.7) k/cumm BUN 44 H (7-18) mg/dL Creatinine 1.75 H (0.55-1.02) mg/dL Ionized Calcium 1.34 H (1.12-1.32) mmol/L Vital Signs Temperature 36.5 C 09/06/18 19:33 Temperature Source Tympanic 09/06/18 19:33 Pulse 74 09/06/18 19:33 Pulse Rhythm Regular 09/06/18 15:25 Pulse 70 09/02/18 10:40 Respiratory Rate 18 09/06/18 19:33 Respiratory Effort 09/06/18 15:25 Respiratory Depth Deep 09/06/18 15:25 Respiratory Pattern Irregular 09/06/18 15:25 Blood Pressure 146/77 H 09/06/18 19:33 Blood Pressure Mean 68 09/02/18 10:40 Blood Pressure Position Sitting 09/01/18 16:02 Pulse Oximetry 94 L 09/06/18 19:33 Oxygen Delivery Method Nasal Cannula 09/06/18 19:33 Oxygen Flow Rate 2 09/06/18 19:33 Pain Level 0 09/06/18 03:40 Comment 09/06/18 03:40 Intake & Output 09/05/18 09/06/18 09/06/18 23:59 11:59 23:59 Intake Total 670 / 1410 1000 / 1290 290 / 1290 Output Total 1100 / 2400 1300 / 2400 Balance 670 / 1410 -100 / -1110 -1010 / -1110 Weight 55.1 kg Intake: IV 60 / 110 120 / 170 50 / 170 Oral 610 / 1300 880 / 1120 240 / 1120 Output: Urine 1100 / 2400 1300 / 2400 Other: Urine Color Yellow Yellow Straw Urine Appearance Clear Clear Clear Urine Odor Normal None Comment inserted at this time Stool Size Moderate Small Stool Characteristics Formed Soft Formed Voiding Methods Toilet Toilet Indwelling Catheter Laboratory Results WBC 14.88 k/cumm (4.4-10.8) H 09/06/18 06:08 RBC 4.26 m/cumm (4.00-5.20) 09/06/18 06:08 Hgb 12.1 g/dL (12.0-15.5) 09/06/18 06:08 Hct 39.1 % (36.0-46.0) 09/06/18 06:08 MCV 91.8 fL (80-95) 09/06/18 06:08 MCH 28.4 pg (27.0-33.0) 09/06/18 06:08 MCHC 30.9 g/dL (32.0-36.0) L 09/06/18 06:08 RDW 14.9 % (11.7-14.6) H 09/06/18 06:08 Plt Count 374 x1000/uL (130-400) 09/06/18 06:08 MPV 9.1 fL (8.0-11.0) 09/06/18 06:08 Immature Gran % 1.5 09/06/18 06:08 Neutrophils % 80.8 09/06/18 06:08 Lymphocytes % 10.1 09/06/18 06:08 Monocytes % 5.3 09/06/18 06:08 Eosinophils % 2.2 09/06/18 06:08 Basophils % 0.1 09/06/18 06:08 Absolute Neutrophils 12.02 k/cumm (1.2-6.7) H 09/06/18 06:08 Absolute Lymphocytes 1.50 k/cumm (1.2-3.4) 09/06/18 06:08 Absolute Monocytes 0.79 k/cumm (0.11-0.7) H 09/06/18 06:08 Absolute Eosinophils 0.33 k/cumm (0.0-0.7) 09/06/18 06:08 Absolute Basophils 0.01 k/cumm (0.0-0.2) 09/06/18 06:08 Sodium 137 mmol/L (136-145) 09/06/18 06:08 Potassium 3.6 mmol/L (3.5-5.1) 09/06/18 06:08 Chloride 101 mmol/L (98-107) 09/06/18 06:08 Carbon Dioxide 27.8 mmol/L (21.0-32.0) 09/06/18 06:08 Anion Gap 8.2 mmol/L (3-11) 09/06/18 06:08 BUN 44 mg/dL (7-18) H 09/06/18 06:08 Creatinine 1.75 mg/dL (0.55-1.02) H 09/06/18 06:08 Estimated GFR/1.73 m2 27.83 (mL/min/1.73m2) 09/06/18 06:08 Glucose 90 mg/dL (70-100) 09/06/18 06:08 Calcium 10.0 mg/dL (8.5-10.1) 09/06/18 06:08 Ionized Calcium 1.34 mmol/L (1.12-1.32) H 09/02/18 06:05 Magnesium 2.0 mg/dL (1.8-2.4) 09/06/18 06:08 Total Bilirubin 0.3 mg/dL (0.2-1.0) 09/03/18 06:40 Conjugated Bilirubin 0.08 mg/dL (0.00-0.20) 09/03/18 06:40 AST 32 U/L (15-37) 09/03/18 06:40 ALT 12 U/L (12-78) 09/03/18 06:40 Alkaline Phosphatase 101 U/L (46-116) 09/03/18 06:40 Troponin I < 0.02 ng/mL (0.00-0.06) 09/01/18 09:00 NT-Pro-B Natriuret Pep 2537 pg/mL (-299) H 09/01/18 09:00 Total Protein 7.0 g/dL (6.4-8.2) 09/03/18 06:40 Albumin 2.1 g/dL (3.4-5.0) L 09/03/18 06:40 25-OH Vitamin D Total 35.4 ng/ml (30-100) 09/03/18 06:40 TSH 0.74 uIU/mL (0.358-3.74) 09/04/18 06:20 PTH Intact 74 pg/mL (19-88) 09/02/18 06:05 Cortisol 2 ug/dL 09/03/18 06:40 CT chest without contrast: 1. Diffuse significant bilateral groundglass opacities throughout the right lung with interstitial edema. Similar but less extensive changes are present involving the left lung. Differential diagnosis would include but not be limited to pulmonary edema, infectious origins, interstitial lung disease, and alveolar hemorrhage. Clinical correlation is required. 2. Pulmonary artery hypertension with an ectatic atherosclerotic ascending and thoracic aorta. 3. Enlarged pathologic pretracheal lymph node. 4. 5 mm right lower lobe pulmonary nodule. 5. Chronic pancreatitis
[2018-09-07] VITALS (10 sets, daily range): BP systolic 111–181; BP diastolic 57–81; PULSE 60–69; RESP 16–20; TEMP 36.2–37.1; O2SAT 84–96
[2018-09-07] MEDS: PIPERACILLIN/TAZO 3.375 GM in Normal Saline 50 ML IVPB ×3 (04:34→20:05)
[2018-09-07] MEDS: Bisacodyl 5 MG TABEC PO (04:43)
[2018-09-07 07:09] LABS: Abs Immature Grans 0.27 k/cumm (0.0-0.09); Absolute Basophil Count 0.02 k/cumm (0.0-0.2); Absolute Eosinophil Count 0.28 k/cumm (0.0-0.7); Absolute Lymphocyte Count 1.36 k/cumm (1.2-3.4); Absolute Monocyte Count 0.82 k/cumm (0.11-0.7); Basophils % 0.1; Eosinophils % 1.8; HCT 38.1 % (36.0-46.0); HGB 11.9 g/dL (12.0-15.5); Immature Grans % 1.7; Lymphocytes % 8.8; Mean Corp. HGB Concentration 31.2 g/dL (32.0-36.0); Mean Corpuscular Hemoglobin 28.7 pg (27.0-33.0); Mean Corpuscular Volume 91.8 fL (80-95); Mean Platelet Volume 8.7 fL (8.0-11.0); Monocytes % 5.3; Neutrophils % 82.3; Platelet Count 401 x1000/uL (130-400); RBC 4.15 m/cumm (4.00-5.20); RBC Distribution Width 14.9 % (11.7-14.6); White Blood Cell Count 15.44 k/cumm (4.4-10.8)
[2018-09-07 07:10] LABS: Absolute Neutrophil Count 12.71 k/cumm (1.2-6.7)
[2018-09-07 07:41] LABS: Anion Gap 8.3 mmol/L (3-11); BUN 38 mg/dL (7-18); CO2 29.7 mmol/L (21.0-32.0); CREATININE 1.38 mg/dL (0.55-1.02); Calcium 9.5 mg/dL (8.5-10.1); Chloride 100 mmol/L (98-107); Glucose 90 mg/dL (70-100); Magnesium 1.9 mg/dL (1.8-2.4); Sodium 138 mmol/L (136-145)
[2018-09-07 07:48] LABS: Potassium 2.9 mmol/L (3.5-5.1)
[2018-09-07] MEDS: Metoprolol 25 MG TAB PO ×2 (08:59→19:59)
[2018-09-07] MEDS: Apixaban 2.5 MG TAB PO ×2 (08:59→19:59)
[2018-09-07] MEDS: hydrALAZINE 10 MG TAB PO ×2 (08:59→19:59)
[2018-09-07] MEDS: cloNIDine 0.1 MG TAB PO ×2 (08:59→19:58)
[2018-09-07] MEDS: Docusate Sodium 100 MG CAP PO ×2 (08:59→19:59)
[2018-09-07] MEDS: Pantoprazole 40 MG TABCR PO (08:59)
[2018-09-07] MEDS: predniSONE 10 MG TAB PO (08:59)
[2018-09-07] MEDS: amLODIPine 5 MG TAB PO (08:59)
[2018-09-07] MEDS: Senna TAB 1 TAB PO ×2 (08:59→19:59)
[2018-09-07] MEDS: Amiodarone 200 MG TAB 100 MG PO (09:00)
[2018-09-07] MEDS: Polyethylene Glycol 3350 17 GM PACKET PO (09:09)
--- NOTE | 2018-09-07 11:30 | DI.RAD_ITS ---
SYMPTOMS/DIAGNOSIS: FOLLOW UP PNEUMONIA, +/- CHF PORTABLE AP CHEST 11:25 HOURS: In comparison with yesterday's examination, note is again made of cardiomegaly and bilateral intrapulmonary radiodensities right greater than left. There has been little if any interval change in comparison with yesterday's examination. CONCLUSION: No interval change in bilateral right greater than left intrapulmonary infiltrates.
[2018-09-07] MEDS: Potassium Chloride 20 MEQ TABCR 40 MEQ PO ×3 (11:38→23:58)
[2018-09-07] MEDS: Normal Saline Flush 10 ML SYR IVP ×3 (11:53→17:30)
[2018-09-07] MEDS: VANCOMYCIN 750 MG in Normal Saline 250 ML 166.667 MG IVPB (12:16)
--- NOTE | 2018-09-07 12:53 | PDOC.CMPRO ---
Care Management Progress Note S/O: Antonia remains pleasant in interaction. She was out in the hallway with her daughter, PT and RT when CM observed her. Per MD, she continues to worsen clinically, and will remain inpatient at this time. CM will continue to follow-no change to overall discharge plan. A: 83 year old female admitted to [facility] 09/01/18 for Pneumonia, CHF P: Antonia will return home when ready per MD. She will follow up with her PCP and plan of care as prescribed including likely follow up with her outpatient top icer for possible elective cardioversion-will also need to follow up with Dr Colindres ([facility]) as outpatient. Antonia will have endocrinology referral for adrenal insufficiency and be on a prolonged taper. Due to increased weakness CM will discuss possible SNF placement with Antonia to determine if she feels she could benefit from . She will transport via private vehicle with her daughter, Orly.
--- NOTE | 2018-09-07 15:49 | PT.INPN ---
Date of service: 09/07/18 Time of Service: 11:45 PT Notes Inpatient Physical Therapy Progress Note Date: 09/07/2018 Dates of Service: 09/02/18 through 09/07/18 Precautions: Fall. Standard. Subjective: I feel worse today than I did when I first came in. Patient reports she is more fatigued and feels more limited with moving about compared to when she first came in to this hospital. She further states that she is exhausted from doing several attempts at bowel movement since this morning. Objective: Patient seen today resting in bed. With IV in right UE for new dose of Lasix drip. Nieves catheter on. Bilateral TEDS on. Mental Status: Alert and oriented x3 Pain: Patient reports discomfort in bilateral legs that increases with walking. She states that her legs feel more heavy. She reports that her abdominal area does not feel comfortable. Nurse has been aware of issue regarding constipation. Bed Mobility/Transfers: Rolling L/R: I Supine-sit: I Sit-supine: I Sit-stand: CGA Stand-sit: CGA Bed-Chair: CGA Chair-bed: CGA Gait: For the afternoon session, patient was able to tolerate level surface ambulation for 65 feet while holding onto the IV pole with both hands and with wheelchair follow of nurse, after which patient requested to sit down as her legs were aching. Patient desaturated to 87% on 2 L of oxygen. Respiratory therapist was consulted who then recommended to increase patient back to 4 L of oxygen. Patient was able to tolerate the rest of the nursing desk loop and into room to about 100 feet without resting and without holding onto anything but with standby assist of this PT and continued wheelchair follow of LAV CREWMAN. Slowed chris influenced by multiple attachments to IV pole, oxygen, and to the Nieves catheter as well as to what appeared to be continued swelling of the bilateral legs and inability to move bowels since waking up this morning. THERA EX: For the morning session, after allowing patient to rest for an hour as she reported exhaustion from trying to defecate since waking up this morning, patient was able to tolerate intermediate to advanced level balance exercises in standing working on sit to stand activities from edge of bed x10 with arms across chest, partial knee bends x10 with arms still across chest, and alternate one legged stance x10 with arms across chest. Oxygen saturation ranged from 87% to 94% on 2 L of oxygen per minute. Special Tests: Mobility Limitations Standardized Measure [facility] AM-PAC 6 clicks Basic Mobility Inpatient Short Form: Raw Score: 18 Standardized Score: 43.63 CMS Score: 46.58 CMS Modifier: CK Treatment: Patient taken through a series of upper and lower extremity exercises with corrective instructions see flow sheet for details Informed Consent/Education: Patient instructed in purpose of PT consult and plan of care. ASSESSMENT: Patient is a 83 year old female referred to physical therapy services with the diagnosis of pneumonia. Patient continues to present with clinical signs and symptoms consistent with current/admitting diagnoses that have resulted to mobility limitations, gait instability, generalized weakness, and impairment of motor control as demonstrated by the following impairment level findings: 1. Decreased strength to B LE major muscle groups 2. Impaired balance 3. Impaired activity tolerance Impairments are contributing to the following functional limitations: 1. Increased dependence with transfers 2. Inability to safely ambulate without assistance 3. Increase completion time for mobility ADL performance 4. Increased fall risk 5. Inability to negotiate steps alone safely Patient is assessed as a moderate complexity initial evaluation 59831 based on the following: History: 83-year-old female with diagnosis of pneumonia with past medical history of CHF, pulmonary hypertension, chronic kidney disease, and chronic obstructive pulmonary disease Examination: Underlying impairments and functional deficits as noted above Presentation: Evolving Decision Makin moderate complexity Goals X1 week 1. Supine-Sit independent and restored to baseline level 2. Sit-Supine independent and restored to baseline level 3. Sit-Stand independent and restored to baseline level 4. Stand-Sit independent and restored to baseline level 5. Bed-Chair independent and restored to baseline level 6. Gait independent up to 300 feet and restored to baseline level 7: Stairs up to 2 steps Plan of Care/Treatment Plan: 1-2x/day, 7 days/week x 1 week. Plan of care has been reviewed with the MANAGER VALIDATION providing the service under Physical Therapy direction. Continue with physical Therapy intervention for strengthening, bed mobility, transfers, gait, stairs, balance training, use of assistive device. DISCHARGE RECOMMENDATIONS: Patient will highly benefit home health physical therapy in order to progress mobility level, maximize activity tolerance, evaluate home safety, and establish/implement functional maintenance program for exercises and fall reduction. TREATMENT CODE/TIME: 13530 30 minutes beginning at 11:45 AM. [id number] 46 minutes beginning at 14:03 PM. Thank you for this referral. Suma Torres, PT, DPT, CLT [facility]
[2018-09-07] MEDS: Bisacodyl 10 MG SUPP PR (15:50)
--- NOTE | 2018-09-07 16:24 | INPN_ITS ---
Date of service: 09/07/18 Time of Service: 11:45 PT Notes Inpatient Physical Therapy Progress Note Date: 09/07/2018 Dates of Service: 09/02/18 through 09/07/18 Precautions: Fall. Standard. Subjective: I feel worse today than I did when I first came in. Patient reports she is more fatigued and feels more limited with moving about compared to when she first came in to this hospital. She further states that she is exhausted from doing several attempts at bowel movement since this morning. Objective: Patient seen today resting in bed. With IV in right UE for new dose of Lasix drip. Nieves catheter on. Bilateral TEDS on. Mental Status: Alert and oriented x3 Pain: Patient reports discomfort in bilateral legs that increases with walking. She states that her legs feel more heavy. She reports that her abdominal area does not feel comfortable. Nurse has been aware of issue regarding constipation. Bed Mobility/Transfers: Rolling L/R: I Supine-sit: I Sit-supine: I Sit-stand: CGA Stand-sit: CGA Bed-Chair: CGA Chair-bed: CGA Gait: For the afternoon session, patient was able to tolerate level surface ambulation for 65 feet while holding onto the IV pole with both hands and with wheelchair follow of nurse, after which patient requested to sit down as her legs were aching. Patient desaturated to 87% on 2 L of oxygen. Respiratory therapist was consulted who then recommended to increase patient back to 4 L of oxygen. Patient was able to tolerate the rest of the nursing desk loop and into room to about 100 feet without resting and without holding onto anything but with standby assist of this PT and continued wheelchair follow of MAJOR APPLIANCE ASSEMBLY SUPERVISOR. Slowed chris influenced by multiple attachments to IV pole, oxygen, and to the Nieves catheter as well as to what appeared to be continued swelling of the bilateral legs and inability to move bowels since waking up this morning. THERA EX: For the morning session, after allowing patient to rest for an hour as she reported exhaustion from trying to defecate since waking up this morning, patient was able to tolerate intermediate to advanced level balance exercises in standing working on sit to stand activities from edge of bed x10 with arms across chest, partial knee bends x10 with arms still across chest, and alternate one legged stance x10 with arms across chest. Oxygen saturation ranged from 87% to 94% on 2 L of oxygen per minute. Special Tests: Mobility Limitations Standardized Measure [facility] AM-PAC 6 clicks Basic Mobility Inpatient Short Form: Raw Score: 18 Standardized Score: 43.63 CMS Score: 46.58 CMS Modifier: CK Treatment: Patient taken through a series of upper and lower extremity exercises with corrective instructions see flow sheet for details Informed Consent/Education: Patient instructed in purpose of PT consult and plan of care. ASSESSMENT: Patient is a 83 year old female referred to physical therapy services with the diagnosis of pneumonia. Patient continues to present with clinical signs and symptoms consistent with current/admitting diagnoses that have resulted to mobility limitations, gait instability, generalized weakness, and impairment of motor control as demonstrated by the following impairment level findings: 1. Decreased strength to B LE major muscle groups 2. Impaired balance 3. Impaired activity tolerance Impairments are contributing to the following functional limitations: 1. Increased dependence with transfers 2. Inability to safely ambulate without assistance 3. Increase completion time for mobility ADL performance 4. Increased fall risk 5. Inability to negotiate steps alone safely Patient is assessed as a moderate complexity initial evaluation 34348 based on the following: History: 83-year-old female with diagnosis of pneumonia with past medical history of CHF, pulmonary hypertension, chronic kidney disease, and chronic obs tructive pulmonary disease Examination: Underlying impairments and functional deficits as noted above Presentation: Evolving Decision Makin moderate complexity Goals X1 week 1. Supine-Sit independent and restored to baseline level 2. Sit-Supine independent and restored to baseline level 3. Sit-Stand independent and restored to baseline level 4. Stand-Sit independent and restored to baseline level 5. Bed-Chair independent and restored to baseline level 6. Gait independent up to 300 feet and restored to baseline level 7: Stairs up to 2 steps Plan of Care/Treatment Plan: 1-2x/day, 7 days/week x 1 week. Plan of care has been reviewed with the BOX HINGE AND LOCK ATTACHER providing the service under Physical Therapy direction. Continue with physical Therapy intervention for strengthening, bed mobility, transfers, gait, stairs, balance training, use of assistive device. DISCHARGE RECOMMENDATIONS: Patient will highly benefit home health physical therapy in order to progress mobility level, maximize activity tolerance, evaluate home safety, and establish/implement functional maintenance program for exercises and fall reduction. TREATMENT CODE/TIME: 73614 30 minutes beginning at 11:45 AM. 82938 46 minutes beginning at 14:03 PM. Thank you for this referral. Suma Torres, PT, DPT, CLT [facility]
--- NOTE | 2018-09-07 17:12 | CMPROGNOTE_ITS ---
Care Management Progress Note S/O: Antonia remains pleasant in interaction. She was out in the hallway with her daughter, PT and RT when CM observed her. Per MD, she continues to worsen clinically, and will remain inpatient at this time. CM will continue to follow- no change to overall discharge plan. A: 83 year old female admitted to [facility] 09/01/18 for Pneumonia, CHF P: Antonia will return home when ready per MD. She will follow up with her PCP and plan of care as prescribed including likely follow up with her outpatient agriculturist for possible elective cardioversion-will also need to follow up with Dr Colindres ([facility]) as outpatient. Antonia will have endocrinology referral for adrenal insufficiency and be on a prolonged taper. Due to increased weakness CM will discuss possible SNF placement with Antonia to determine if she feels she could benefit from . She will transport via private vehicle with her daughter, Orly.
[2018-09-07] MEDS: levoFLOXacin 500 MG/100 ML BAG 100 MG IVPB (17:29)
--- NOTE | 2018-09-07 19:00 | W.PM.PROGNOT ---
Date of Service Date of service: 09/07/18 Time of Service: 19:00 Assessment and Plan (1) Pneumonia: Current visit: Yes Status: Acute As above. Continue vancomycin, zosyn, add levofloxacin and increase prednisone to 60 mg. DDx: legionella; influenza rapid test is negative, so less likely; Amiodarone pulmonary toxicity, PJP pneumonia NPO after midnight for bronchoscopy. (2) CHF (congestive heart failure): Current visit: Yes Status: Chronic Evidence of both systolic and diastolic CHF by last echo in 2017, with an ejection fraction of [address] with suggestion of pulmonary edema as well. Continue to lasix gtt and monitor Cr. (3) ZAFAR (acute kidney injury): Current visit: Yes Status: Acute ZAFAR in setting of CKD, monitor on lasix gtt. Improved with diuresis, so will continue. (4) Hypertension: Current visit: Yes Status: Chronic Continue norvasc. Continue metoprolol and hydralazine. Hold acei (5) PAF (paroxysmal atrial fibrillation): Current visit: Yes Status: Chronic Back in NSR D/c amiodarone. Will need cardiology help to determine further course of action as amiodarone toxicity is suspected. Continue BB therapy. Continue apixaban (ok per Dr Cuello to continue this prior to bronchoscopy). She is asymptomatic of Afib - will reinitiate tele now that she is off of amiodarone and on levofloxacin. (6) Blisters of multiple sites: Current visit: Yes Status: Resolved H/o - due to bullous pemphigoid, per derm records. This does not appear active. Follow up as outpatient. (7) Hyperpigmentation: Current visit: Yes Status: Acute am cortisol consistent with adrenal insufficiency. Will need to follow up with Dr Colindres (derm) as outpatient. Referral to endocrinology referral for adrenal insufficiency. On discharge will need to be on a prolonged taper. (8) Hypoxia: Current visit: Yes Status: Acute As above - workup of other causes of pulmonary disease in process. (9) Bright red blood per rectum: Current visit: Yes Status: Resolved Continue bowel regimen. Continue anticoagulation. This was due to patient manually disimpacting herself. (10) Constipation: Current visit: Yes Status: Acute Continue bowel regimen (11) Adrenal insufficiency: Current visit: Yes Status: Suspected As above Confirmed by am cortisol Prednisone increased to 60 mg PO daily. (12) Hypercalcemia: Current visit: Yes Status: Acute Possibly iatrogenic as the patient was on calcium and vitamin D supplements. PTH wnl. Ionized calcium only slightly above nml level. Will need to be monitored over time. (13) DVT prophylaxis: Current visit: Yes Status: Acute Eliquis (therapeutic for Afib). Continue PPI therapy for GI prophylaxis as well. (14) Advance directive on file: Current visit: Yes Status: Acute DNR/DNI - COLST signed Met with palliative care (15) Discharge planning issues: Current visit: Yes Status: Acute DNR/DNI Subjective Interval history since last seen: Ms Win continues to feel short of breath. She is not any better. She denies any dizziness, chest pain, nausea, vomiting. Her cough remains nonproductive. The leg swelling has improved some. I discussed her CT scan findings as well as her history of several prednisone courses in the recent past with Dr Amari Cuello (pulmonology, [facility]). His recommendations were to check for legionella, influenza, stop amiodarone (because amiodarone toxicity could look like this and there is evidence of chronic lung disease on prior CXR), start prednisone 60 mg PO daily, and perform bronchoscopy to ensure that this is not PJP. The bronchoscopy could be performed as a shuttle (down and back) procedure. The patient is in agreement with the plan. This is now being planned for tomorrow. Exam Narrative Exam Narrative: General: Very pleasant, frail elderly female, sitting in a chair, A&Ox3 HEENT: EOMI, MMM Heart: regularly regular rhythm, no m/r/g Lungs: coarse breath sounds with bibasilar rales, R lung with more rhonchi today GI: abdomen is soft, nontender, mildly distended; midline incision well healed Extremities: +1 edema BLE's, no clubbing/cyanosis; skin exam as above Objective Objective Clinical Data: Abnormal lab results 09/07/18 09/07/18 Range/Units 06:47 06:47 WBC 15.44 H (4.4-10.8) k/cumm Hgb 11.9 L (12.0-15.5) g/dL MCHC 31.2 L (32.0-36.0) g/dL RDW 14.9 H (11.7-14.6) % Plt Count 401 H (130-400) x1000/uL Absolute Neutrophils 12.71 H (1.2-6.7) k/cumm Absolute Monocytes 0.82 H (0.11-0.7) k/cumm Potassium 2.9 L* (3.5-5.1) mmol/L BUN 38 H (7-18) mg/dL Creatinine 1.38 H (0.55-1.02) mg/dL Vital Signs Temperature 36.4 C L 09/07/18 15:30 Temperature Source Tympanic 09/07/18 15:30 Pulse 62 09/07/18 15:30 Pulse Rhythm Regular 09/07/18 15:30 Pulse 70 09/02/18 10:40 Respiratory Rate 18 09/07/18 15:30 Respiratory Effort 09/07/18 15:30 Respiratory Depth Normal 09/07/18 15:30 Respiratory Pattern Normal 09/07/18 15:30 Blood Pressure 116/68 09/07/18 15:30 Blood Pressure Mean 68 09/02/18 10:40 Blood Pressure Position Sitting 09/01/18 16:02 Pulse Oximetry 96 09/07/18 15:30 Oxygen Delivery Method Nasal Cannula 09/07/18 15:30 Oxygen Flow Rate 2 09/07/18 15:30 Pain Level 0 09/07/18 07:20 Comment 09/07/18 04:30 Intake & Output 09/06/18 09/07/18 09/07/18 23:59 11:59 23:59 Intake Total 340 / 1340 1040 / 1589.833 549.833 / 1589.833 Output Total 1550 / 2650 1999 / 4325 2325 / 4325 Balance -1210 / -1310 -960 / -2735.167 -1775.167 / -2735.167 Weight 56.4 kg Intake: IV 100 / 220 60 / 369.833 309.833 / 369.833 Oral 240 / 1120 980 / 1220 240 / 1220 Output: Urine 1550 / 2650 1999 / 4325 2325 / 4325 Other: Urine Color Straw Pale Straw Urine Appearance Clear Clear Clear Urine Odor None None Comment inserted at this time CLEAR, LT YELLOW Stool Size Small Small Stool Characteristics Soft Soft Formed Formed Brown Brown Voiding Methods Indwelling Catheter Indwelling Catheter Laboratory Results WBC 15.44 k/cumm (4.4-10.8) H 09/07/18 06:47 RBC 4.15 m/cumm (4.00-5.20) 09/07/18 06:47 Hgb 11.9 g/dL (12.0-15.5) L 09/07/18 06:47 Hct 38.1 % (36.0-46.0) 09/07/18 06:47 MCV 91.8 fL (80-95) 09/07/18 06:47 MCH 28.7 pg (27.0-33.0) 09/07/18 06:47 MCHC 31.2 g/dL (32.0-36.0) L 09/07/18 06:47 RDW 14.9 % (11.7-14.6) H 09/07/18 06:47 Plt Count 401 x1000/uL (130-400) H 09/07/18 06:47 MPV 8.7 fL (8.0-11.0) 09/07/18 06:47 Immature Gran % 1.7 09/07/18 06:47 Neutrophils % 82.3 09/07/18 06:47 Lymphocytes % 8.8 09/07/18 06:47 Monocytes % 5.3 09/07/18 06:47 Eosinophils % 1.8 09/07/18 06:47 Basophils % 0.1 09/07/18 06:47 Absolute Neutrophils 12.71 k/cumm (1.2-6.7) H 09/07/18 06:47 Absolute Lymphocytes 1.36 k/cumm (1.2-3.4) 09/07/18 06:47 Absolute Monocytes 0.82 k/cumm (0.11-0.7) H 09/07/18 06:47 Absolute Eosinophils 0.28 k/cumm (0.0-0.7) 09/07/18 06:47 Absolute Basophils 0.02 k/cumm (0.0-0.2) 09/07/18 06:47 Sodium 138 mmol/L (136-145) 09/07/18 06:47 Potassium 2.9 mmol/L (3.5-5.1) L* 09/07/18 06:47 Chloride 100 mmol/L (98-107) 09/07/18 06:47 Carbon Dioxide 29.7 mmol/L (21.0-32.0) 09/07/18 06:47 Anion Gap 8.3 mmol/L (3-11) 09/07/18 06:47 BUN 38 mg/dL (7-18) H 09/07/18 06:47 Creatinine 1.38 mg/dL (0.55-1.02) H 09/07/18 06:47 Estimated GFR/1.73 m2 36.60 (mL/min/1.73m2) 09/07/18 06:47 Glucose 90 mg/dL (70-100) 09/07/18 06:47 Calcium 9.5 mg/dL (8.5-10.1) 09/07/18 06:47 Ionized Calcium 1.34 mmol/L (1.12-1.32) H 09/02/18 06:05 Magnesium 1.9 mg/dL (1.8-2.4) 09/07/18 06:47 Total Bilirubin 0.3 mg/dL (0.2-1.0) 09/03/18 06:40 Conjugated Bilirubin 0.08 mg/dL (0.00-0.20) 09/03/18 06:40 AST 32 U/L (15-37) 09/03/18 06:40 ALT 12 U/L (12-78) 09/03/18 06:40 Alkaline Phosphatase 101 U/L (46-116) 09/03/18 06:40 Troponin I < 0.02 ng/mL (0.00-0.06) 09/01/18 09:00 NT-Pro-B Natriuret Pep 2537 pg/mL (-299) H 09/01/18 09:00 Total Protein 7.0 g/dL (6.4-8.2) 09/03/18 06:40 Albumin 2.1 g/dL (3.4-5.0) L 09/03/18 06:40 25-OH Vitamin D Total 35.4 ng/ml (30-100) 09/03/18 06:40 TSH 0.74 uIU/mL (0.358-3.74) 09/04/18 06:20 PTH Intact 74 pg/mL (19-88) 09/02/18 06:05 Cortisol 2 ug/dL 09/03/18 06:40
[2018-09-07] MEDS: predniSONE 20 MG TAB 60 MG PO (19:58)
[2018-09-08] VITALS (8 sets, daily range): BP systolic 128–137; BP diastolic 66–77; PULSE 60–89; RESP 18–20; TEMP 36.3–36.9; O2SAT 92–96
[2018-09-08] MEDS: PIPERACILLIN/TAZO 3.375 GM in Normal Saline 50 ML IVPB ×3 (03:11→19:42)
[2018-09-08] MEDS: Normal Saline Flush 10 ML SYR IVP ×3 (03:11→19:41)
[2018-09-08 07:28] LABS: Abs Immature Grans 0.22 k/cumm (0.0-0.09); Absolute Basophil Count 0.01 k/cumm (0.0-0.2); Absolute Lymphocyte Count 0.74 k/cumm (1.2-3.4); Absolute Monocyte Count 0.24 k/cumm (0.11-0.7); Absolute Neutrophil Count 10.57 k/cumm (1.2-6.7); Basophils % 0.1; HGB 12.5 g/dL (12.0-15.5); Immature Grans % 1.9; Lymphocytes % 6.3; Mean Corp. HGB Concentration 31.3 g/dL (32.0-36.0); Mean Corpuscular Hemoglobin 28.5 pg (27.0-33.0); Mean Corpuscular Volume 91.3 fL (80-95); Mean Platelet Volume 9.1 fL (8.0-11.0); Neutrophils % 89.7; Platelet Count 435 x1000/uL (130-400); RBC 4.38 m/cumm (4.00-5.20); RBC Distribution Width 14.9 % (11.7-14.6); White Blood Cell Count 11.78 k/cumm (4.4-10.8)
[2018-09-08] MEDS: hydrALAZINE 10 MG TAB PO ×2 (08:06→19:48)
[2018-09-08] MEDS: Pantoprazole 40 MG TABCR PO (08:06)
[2018-09-08] MEDS: Senna TAB 1 TAB PO ×2 (08:06→19:48)
[2018-09-08] MEDS: Metoprolol 25 MG TAB PO ×2 (08:06→19:48)
[2018-09-08] MEDS: Docusate Sodium 100 MG CAP PO ×2 (08:06→19:48)
[2018-09-08] MEDS: Apixaban 2.5 MG TAB PO ×2 (08:06→19:48)
[2018-09-08] MEDS: amLODIPine 5 MG TAB PO (08:06)
[2018-09-08] MEDS: cloNIDine 0.1 MG TAB PO ×2 (08:06→19:48)
[2018-09-08] MEDS: predniSONE 20 MG TAB 60 MG PO (08:07)
[2018-09-08] MEDS: Amiodarone 200 MG TAB 100 MG PO (08:07)
[2018-09-08] MEDS: VANCOMYCIN 750 MG in Normal Saline 250 ML 167 MG IVPB (08:20)
[2018-09-08 08:27] LABS: Anion Gap 10.7 mmol/L (3-11); BUN 45 mg/dL (7-18); CO2 25.3 mmol/L (21.0-32.0); CREATININE 1.51 mg/dL (0.55-1.02); Calcium 9.9 mg/dL (8.5-10.1); Chloride 101 mmol/L (98-107); Estimated GFR 32.99 (mL/min/1.73m2); Glucose 114 mg/dL (70-100); LDH 251 U/L (81-234); Potassium 4.5 mmol/L (3.5-5.1); Sodium 137 mmol/L (136-145)
--- NOTE | 2018-09-08 14:59 | PT.INTREAT ---
Date of service: 09/08/18 Time of Service: 10:00 PT Notes Inpatient Physical Therapy Treatment Note [facility] Date: 09/08/18 PRECAUTIONS: Monitor SaO2 SUBJECTIVE: Antonia states that she continues to feel weak in her LE's following PT. Patient expresses concern that she continues to not have answers regarding her medical status, although she is aware that she will be going to [facility] for procedure today. OBJECTIVE: PAIN: No complaints of pain BED MOBILITY/TRANSFERS Sit-stand: S Stand-sit: S GAIT Assistive Device: No AD Weight bearing: Full Assist: SBA Distance: 175' x2 + 50' Deviation: Standing rest x2, minimal SOB VITALS: SaO2: 83-94% on 4L?6L O2 via NC with gait. Session performed in collaboration with RT, please see their note for specific vital signs THEREX: Refused due to fatigue. ASSESSMENT: Patient tolerated session with minimal c/o of SOB with activity. Patient would benefit from continued conditioning for improved cardiovascular endurance and activity tolerance. PLAN: Continue with PTs POC TREATMENT CODE/TIME: Session 1: 25 minutes; 65114 x2
--- NOTE | 2018-09-08 15:09 | PTTR_ITS ---
Date of service: 09/08/18 Time of Service: 10:00 PT Notes Inpatient Physical Therapy Treatment Note [facility] Date: 09/08/18 PRECAUTIONS: Monitor SaO2 SUBJECTIVE: Antonia states that she continues to feel weak in her LE's following PT. Patient expresses concern that she continues to not have answers regarding her medical status, although she is aware that she will be going to [facility] for procedure today. OBJECTIVE: PAIN: No complaints of pain BED MOBILITY/TRANSFERS Sit-stand: S Stand-sit: S GAIT Assistive Device: No AD Weight bearing: Full Assist: SBA Distance: 175' x2 + 50' Deviation: Standing rest x2, minimal SOB VITALS: SaO2: 83-94% on 4L?6L O2 via NC with gait. Session performed in collaboration with RT, please see their note for specific vital signs THEREX: Refused due to fatigue. ASSESSMENT: Patient tolerated session with minimal c/o of SOB with activity. Patient would benefit from continued conditioning for improved cardiovascular endurance and activity tolerance. PLAN: Continue with PTs POC TREATMENT CODE/TIME: Session 1: 25 minutes; 94015 x2
--- NOTE | 2018-09-08 15:09 | PT.INNT ---
Date of service: 09/08/18 Time of Service: 15:09 PT Notes 09/08/18 Patient not available for afternoon PT session, as she is having a [place] [facility] Will attempt to resume PT services tomorrow morning.
--- NOTE | 2018-09-08 15:10 | NT_ITS ---
Date of service: 09/08/18 Time of Service: 15:09 PT Notes 09/08/18 Patient not available for afternoon PT session, as she is having a procedure at [facility]. Will attempt to resume PT services tomorrow morning.
--- NOTE | 2018-09-08 17:48 | PDOC.CMPRO ---
Care Management Progress Note S/O: Antonia remains pleasant in interaction and continues to share concerns around her clinical status. She had a down and back appointment to [facility] today for bronchial scope. CM to discuss disposition options as more information of functional status is available and Antonia is closer to discharge. PT reports increased weakness due to ongoing illness. CM will continue to follow-no change to overall discharge plan. A: 83 year old female admitted to [facility] 09/01/18 for Pneumonia, CHF P: Antonia will return home when ready per MD. She will follow up with her PCP and plan of care as prescribed including likely follow up with her outpatient computer customer support specialist for possible elective cardioversion-will also need to follow up with Dr Colindres (derm) as outpatient. Antonia will have endocrinology referral for adrenal insufficiency and be on a prolonged taper. Due to increased weakness, CM will discuss possible SNF placement with Antonia to determine if she feels she could benefit from SNF and determine if she would be agreeable. Her resides joint terminal attack controller at [facility]. CM will continue to follow.
--- NOTE | 2018-09-08 18:20 | CMPROGNOTE_ITS ---
Care Management Progress Note S/O: Antonia remains pleasant in interaction and continues to share concerns around her clinical status. She had a down and back appointment to [facility] [place] [facility] today for bronchial scope. CM to discuss disposition options as more information of functional status is available and Antonia is closer to discharge. PT reports increased weakness due to ongoing illness. CM will continue to follow-no change to overall discharge plan. A: 83 year old female admitted to [facility] 09/01/18 for Pneumonia, CHF P: Antonia will return home when ready per MD. She will follow up with her PCP and plan of care as prescribed including likely follow up with her outpatient apparel rental clerk for possible elective cardioversion-will also need to follow up with Dr Colindres (derm) as outpatient. Antonia will have endocrinology referral for adrenal insufficiency and be on a prolonged taper. Due to increased weakness, CM will discuss possible SNF placement with Antonia to determine if she feels she could benefit from SNF and determine if she would be agreeable. 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 CM will continue to follow.
[2018-09-08] MEDS: Normal Saline 500 ML IV (19:42)
--- NOTE | 2018-09-08 19:54 | PGE_ITS ---
Date of Service Date of service: 09/08/18 Time of Service: 09:40 Assessment and Plan (1) Pneumonia: Current visit: Yes Status: Acute As above. Continue vancomycin (D2), zosyn (Day 6), levofloxacin (Day 2), prednisone to 60 mg. DDx: legionella; Amiodarone pulmonary toxicity, PJP pneumonia, any other type of bacterial pneumonia Bronchoscopy today did not happen. It may happen in the future. Holding eliquis, as per [facility] [place] [place] request. (2) CHF (congestive heart failure): Current visit: Yes Status: Chronic Evidence of both systolic and diastolic CHF by last echo in 2017, with an ejection fraction of 45 [address] with suggestion of pulmonary edema as well. Continue to lasix gtt and monitor Cr. (3) ZAFAR (acute kidney injury): Current visit: Yes Status: Acute ZAFRA in setting of CKD, monitor on lasix gtt. Cr slightly worse today, but I suspect that patient's Creatinine at baseline is closer to 1.7. (4) Hypertension: Current visit: Yes Status: Chronic Continue norvasc. Continue metoprolol and hydralazine. Hold acei (5) PAF (paroxysmal atrial fibrillation): Current visit: Yes Status: Chronic Back in NSR Amiodaron d/c'ed. Will need cardiology help to determine further course of action as amiodarone toxicity is suspected. Continue BB therapy. D/c eliquis. She is asymptomatic of Afib - continue tele. (6) Blisters of multiple sites: Current visit: Yes Status: Resolved H/o - due to bullous pemphigoid, per derm records. This does not appear active. Follow up as outpatient. (7) Hyperpigmentation: Current visit: Yes Status: Acute am cortisol consistent with adrenal insufficiency. Will need to follow up with Dr Colindres (derm) as outpatient. Referral to endocrinology referral for adrenal insufficiency. On discharge will need to be on a prolonged taper. (8) Hypoxia: Current visit: Yes Status: Acute As above - workup of other causes of pulmonary disease in process. (9) Bright red blood per rectum: Current visit: Yes Status: Resolved Continue bowel regimen. Continue anticoagulation. This was due to patient manually disimpacting herself. (10) Constipation: Current visit: Yes Status: Acute Continue bowel regimen (11) Adrenal insufficiency: Current visit: Yes Status: Suspected As above Confirmed by am cortisol Prednisone 60 mg PO daily. Lengthy taper (60 mg x 1 weeks, 40 mg x 1 week, etc). (12) Hypercalcemia: Current visit: Yes Status: Acute Possibly iatrogenic as the patient was on calcium and vitamin D supplements. PTH wnl. Ionized calcium only slightly above nml level. Will need to be monitored over time. (13) DVT prophylaxis: Current visit: Yes Status: Acute Eliquis on hold. Continue PPI therapy for GI prophylaxis as well. Chemical dvt ppx can be begun tomorrow evening. (14) Advance directive on file: Current visit: Yes Status: Acute DNR/DNI - COLST signed Met with palliative care (15) Discharge planning issues: Current visit: Yes Status: Acute DNR/DNI Subjective Interval history since last seen: Patient was seen ambulating in the hallway with PT (on 4-6 L, saturating 83-94%). At the time, she stated she did not feel better as far as breathing. She had no other complaints and continued to work [facility] PT. She was planned to have bronchoscopy today by Dr Cuello, who had a family emergency today. I discussed the case with Dr Flores of pulmonology at [facility] [place] [place] who stated that he would be able to do the procedure today. The patient went to [facility] [place] [place], where she was evaluated by Dr Flores, who called me back and stated that he felt that it would be better for the patient to have this procedure under anasthesia. Initially, the plan was for the patient to stay at [facility] [place] [place]. However, that plan changed, and the patient was then recommended to return back to [facility], have a washout of eliquis for at least 4 days in preparation for any such bronchoscopy in the future. Her B-glucan level was checked at [facility] [place] [place] - we are to follow the results. This will help clarify whether or not the patient is at risk for PJP. We are to continue diuresis, antibiotics, and steroids. Exam Narrative Exam Narrative: Unable to fully examine the patient this am prior to her departure for [facility] [place] [place]. The patient was seen ambulating with PT on 4-6L, recognized me, remembered her plan of care for the day. Objective Objective Clinical Data: Abnormal lab results 09/08/18 09/08/18 Range/Units 06:25 06:25 WBC 11.78 H (4.4-10.8) k/cumm MCHC 31.3 L (32.0-36.0) g/dL RDW 14.9 H (11.7-14.6) % Plt Count 435 H (130-400) x1000/uL Absolute Neutrophils 10.57 H (1.2-6.7) k/cumm Absolute Lymphocytes 0.74 L (1.2-3.4) k/cumm BUN 45 H (7-18) mg/dL Creatinine 1.51 H (0.55-1.02) mg/dL Glucose 114 H (70-100) mg/dL Lactate Dehydrogenase 251 H (81-234) U/L Vital Signs Temperature 36.5 C 09/08/18 19:37 Temperature Source Tympanic 09/08/18 19:37 Pulse 82 09/08/18 19:37 Pulse Rhythm Irregular 09/08/18 07:30 Pulse 70 09/02/18 10:40 Respiratory Rate 20 09/08/18 19:37 Respiratory Effort 09/08/18 07:30 Respiratory Depth Normal 09/08/18 07:30 Respiratory Pattern Normal 09/08/18 07:30 Blood Pressure 133/66 09/08/18 19:37 Blood Pressure Mean 68 09/02/18 10:40 Blood Pressure Position Sitting 09/01/18 16:02 Pulse Oximetry 92 L 09/08/18 19:37 Oxygen Delivery Method Nasal Cannula 09/08/18 19:37 Oxygen Flow Rate 2 09/08/18 19:37 Pain Level 0 09/07/18 07:20 Comment 09/08/18 15:59 Intake & Output 09/07/18 09/08/18 09/08/18 23:59 11:59 23:59 Intake Total 819.833 / 1859.833 350 / 471.792 121.792 / 471.792 Output Total 2725 / 6025 2325 / 2950 625 / 2950 Balance -1905.167 / -4165.167 -1974 / -8.208 -503.208 / -2477.208 Weight 53.6 kg Intake: IV 459.833 / 519.833 350 / 471.792 121.792 / 471.792 Oral 360 / 1340 0 / 0 Output: Urine 2725 / 6025 2325 / 2950 625 / 2950 Other: Urine Color Yellow Pale Yellow Yellow Urine Appearance Clear Clear Clear Urine Odor None Stool Size Small Moderate Stool Characteristics Soft Soft Formed Formed Brown Brown Voiding Methods Bedside Commode Laboratory Results WBC 11.78 k/cumm (4.4-10.8) H 09/08/18 06:25 RBC 4.38 m/cumm (4.00-5.20) 09/08/18 06:25 Hgb 12.5 g/dL (12.0-15.5) 09/08/18 06:25 Hct 40.0 % (36.0-46.0) 09/08/18 06:25 MCV 91.3 fL (80-95) 09/08/18 06:25 MCH 28.5 pg (27.0-33.0) 09/08/18 06:25 MCHC 31.3 g/dL (32.0-36.0) L 09/08/18 06:25 RDW 14.9 % (11.7-14.6) H 09/08/18 06:25 Plt Count 435 x1000/uL (130-400) H 09/08/18 06:25 MPV 9.1 fL (8.0-11.0) 09/08/18 06:25 Immature Gran % 1.9 09/08/18 06:25 Neutrophils % 89.7 09/08/18 06:25 Lymphocytes % 6.3 09/08/18 06:25 Monocytes % 2.0 09/08/18 06:25 Eosinophils % 0.0 09/08/18 06:25 Basophils % 0.1 09/08/18 06:25 Absolute Neutrophils 10.57 k/cumm (1.2-6.7) H 09/08/18 06:25 Absolute Lymphocytes 0.74 k/cumm (1.2-3.4) L 09/08/18 06:25 Absolute Monocytes 0.24 k/cumm (0.11-0.7) 09/08/18 06:25 Absolute Eosinophils 0.00 k/cumm (0.0-0.7) 09/08/18 06:25 Absolute Basophils 0.01 k/cumm (0.0-0.2) 09/08/18 06:25 Sodium 137 mmol/L (136-145) 09/08/18 06:25 Potassium 4.5 mmol/L (3.5-5.1) D 09/08/18 06:25 Chloride 101 mmol/L (98-107) 09/08/18 06:25 Carbon Dioxide 25.3 mmol/L (21.0-32.0) 09/08/18 06:25 Anion Gap 10.7 mmol/L (3-11) 09/08/18 06:25 BUN 45 mg/dL (7-18) H 09/08/18 06:25 Creatinine 1.51 mg/dL (0.55-1.02) H 09/08/18 06:25 Estimated GFR/1.73 m2 32.99 (mL/min/1.73m2) 09/08/18 06:25 Glucose 114 mg/dL (70-100) H 09/08/18 06:25 Calcium 9.9 mg/dL (8.5-10.1) 09/08/18 06:25 Ionized Calcium 1.34 mmol/L (1.12-1.32) H 09/02/18 06:05 Magnesium 2.0 mg/dL (1.8-2.4) 09/08/18 06:25 Total Bilirubin 0.3 mg/dL (0.2-1.0) 09/03/18 06:40 Conjugated Bilirubin 0.08 mg/dL (0.00-0.20) 09/03/18 06:40 AST 32 U/L (15-37) 09/03/18 06:40 ALT 12 U/L (12-78) 09/03/18 06:40 Alkaline Phosphatase 101 U/L (46-116) 09/03/18 06:40 Lactate Dehydrogenase 251 U/L (81-234) H 09/08/18 06:25 Troponin I < 0.02 ng/mL (0.00-0.06) 09/01/18 09:00 NT-Pro-B Natriuret Pep 2537 pg/mL (-299) H 09/01/18 09:00 Total Protein 7.0 g/dL (6.4-8.2) 09/03/18 06:40 Albumin 2.1 g/dL (3.4-5.0) L 09/03/18 06:40 25-OH Vitamin D Total 35.4 ng/ml (30-100) 09/03/18 06:40 TSH 0.74 uIU/mL (0.358-3.74) 09/04/18 06:20 PTH Intact 74 pg/mL (19-88) 09/02/18 06:05 Cortisol 2 ug/dL 09/03/18 06:40
[2018-09-09] VITALS (12 sets, daily range): BP systolic 100–148; BP diastolic 62–73; PULSE 61–75; RESP 15–24; TEMP 36.3–37.3; O2SAT 92–97
[2018-09-09] MEDS: Normal Saline Flush 10 ML SYR IVP ×4 (01:12→18:31)
[2018-09-09] MEDS: VANCOMYCIN 750 MG in Normal Saline 250 ML 167 MG IVPB ×2 (03:28→23:54)
[2018-09-09] MEDS: PIPERACILLIN/TAZO 3.375 GM in Normal Saline 50 ML IVPB ×3 (05:17→20:03)
[2018-09-09] MEDS: Pantoprazole 40 MG TABCR PO (07:15)
[2018-09-09 07:28] LABS: Abs Immature Grans 0.29 k/cumm (0.0-0.09); Absolute Lymphocyte Count 1.58 k/cumm (1.2-3.4); HCT 39.1 % (36.0-46.0); HGB 12.2 g/dL (12.0-15.5); Immature Grans % 1.2; Lymphocytes % 6.6; Mean Corp. HGB Concentration 31.2 g/dL (32.0-36.0); Mean Corpuscular Hemoglobin 28.4 pg (27.0-33.0); Mean Corpuscular Volume 91.1 fL (80-95); Mean Platelet Volume 9.1 fL (8.0-11.0); Monocytes % 5.3; Neutrophils % 86.9; Platelet Count 454 x1000/uL (130-400); RBC 4.29 m/cumm (4.00-5.20); RBC Distribution Width 14.9 % (11.7-14.6); White Blood Cell Count 23.87 k/cumm (4.4-10.8)
[2018-09-09 07:33] LABS: Absolute Monocyte Count 1.27 k/cumm (0.11-0.7); Absolute Neutrophil Count 20.74 k/cumm (1.2-6.7)
[2018-09-09 07:38] LABS: Anion Gap 10.4 mmol/L (3-11); BUN 50 mg/dL (7-18); CO2 25.6 mmol/L (21.0-32.0); CREATININE 1.89 mg/dL (0.55-1.02); Calcium 9.8 mg/dL (8.5-10.1); Chloride 101 mmol/L (98-107); Estimated GFR 25.46 (mL/min/1.73m2); Glucose 98 mg/dL (70-100); Magnesium 2.1 mg/dL (1.8-2.4); Potassium 3.6 mmol/L (3.5-5.1); Sodium 137 mmol/L (136-145)
[2018-09-09 08:10] LABS: Diff Comment Agrees w/ Instrument; RBC Morphology Normal
[2018-09-09] MEDS: Docusate Sodium 100 MG CAP PO ×2 (09:15→19:30)
[2018-09-09] MEDS: hydrALAZINE 10 MG TAB PO ×2 (09:15→19:30)
[2018-09-09] MEDS: Senna TAB 1 TAB PO ×2 (09:15→19:30)
[2018-09-09] MEDS: Metoprolol 25 MG TAB PO ×2 (09:15→19:31)
[2018-09-09] MEDS: cloNIDine 0.1 MG TAB PO ×2 (09:15→19:31)
[2018-09-09] MEDS: amLODIPine 5 MG TAB PO (09:15)
[2018-09-09] MEDS: predniSONE 20 MG TAB 60 MG PO (09:15)
[2018-09-09] MEDS: Potassium Chloride 20 MEQ TABCR 40 MEQ PO (11:28)
--- NOTE | 2018-09-09 11:32 | PT.INTREAT ---
Date of service: 09/09/18 Time of Service: 09:30 PT Notes Inpatient Physical Therapy Treatment Note [facility] Date: 09/09/18 SUBJECTIVE: pt states that she is tired from all the [place] [facility] She c/o bilateral LE soreness. OBJECTIVE: [] BED MOBILITY/TRANSFERS Sit-stand: I Stand-sit: I GAIT Assistive Device: pt pushed the IV pole Weight bearing: full Assist: SBA Distance: 100'x2 4L of O2 during ambulation and ex. THEREX:performed a global LE strengthening routine while seated in chair, along with some sit to stand transfers. Please refer to flowsheet for specifc ex details. ASSESSMENT: tolerated session well. She did c/o LE soreness which did subside once she sat. Minimal c/o SOB with ambulation and seated marching activities. She was able to perform her deep breathing ex and get this under control. PLAN: will continue to progress her strength and conditioning, working towards independent functional mobility, as per PT POC. TREATMENT CODE/TIME: 25 min. TPx1/TAx1
--- NOTE | 2018-09-09 11:37 | PTTR_ITS ---
Date of service: 09/09/18 Time of Service: 09:30 PT Notes Inpatient Physical Therapy Treatment Note [facility] Date: 09/09/18 SUBJECTIVE: pt states that she is tired from all the testing she had done at [facility] [place] last night. She c/o bilateral LE soreness. OBJECTIVE: [] BED MOBILITY/TRANSFERS Sit-stand: I Stand-sit: I GAIT Assistive Device: pt pushed the IV pole Weight bearing: full Assist: SBA Distance: 100'x2 4L of O2 during ambulation and ex. THEREX:performed a global LE strengthening routine while seated in chair, along with some sit to stand transfers. Please refer to flowsheet for specifc ex details. ASSESSMENT: tolerated session well. She did c/o LE soreness which did subside once she sat. Minimal c/o SOB with ambulation and seated marching activities. She was able to perform her deep breathing ex and get this under control. PLAN: will continue to progress her strength and conditioning, working towards independent functional mobility, as per PT POC. TREATMENT CODE/TIME: 25 min. TPx1/TAx1
--- NOTE | 2018-09-09 17:23 | PDOC.CMPRO ---
Care Management Progress Note S/O: Antonia remains pleasant in interaction and continues to share concerns around her clinical status. She is anxious to hear what the results are from her tests. States she wants to return to her daughter's home. Said they have a good system and she does not want to go to [facility]. She does visit her there almost every day. . A: 83 year old female admitted to [facility] 09/01/18 for Pneumonia, CHF P: Antonia will return home when ready per MD. She will follow up with her PCP and plan of care as prescribed including likely follow up with her outpatient roadside mechanic for possible elective cardioversion-will also need to follow up with Dr Colindres (derm) as outpatient. Antonia will have endocrinology referral for adrenal insufficiency and be on a prolonged taper.
--- NOTE | 2018-09-09 17:26 | CMPROGNOTE_ITS ---
Care Management Progress Note S/O: Antonia remains pleasant in interaction and continues to share concerns around her clinical status. She is anxious to hear what the results are from her tests. States she wants to return to her daughter's home. Said they have a good system and she does not want to go to [facility]. She does visit her there almost every day. . A: 83 year old female admitted to [facility] 09/01/18 for Pneumonia, CHF P: Antonia will return home when ready per MD. She will follow up with her PCP and plan of care as prescribed including likely follow up with her outpatient hook up for possible elective cardioversion-will also need to follow up with Dr Colindres (derm) as outpatient. Antonia will have endocrinology referral for adrenal insufficiency and be on a prolonged taper.
[2018-09-09] MEDS: levoFLOXacin 500 MG/100 ML BAG 100 MG IVPB (18:31)
--- NOTE | 2018-09-09 18:38 | PGE_ITS ---
Date of Service Date of service: 09/09/18 Time of Service: 18:37 Assessment and Plan (1) Pneumonia: Current visit: Yes Status: Acute Likely diagnosis of pneumonia based on symptoms and imaging, failed to improve despite broad spectrum antibiotic therapy. CT of the chest with Diffuse b/l R>L Intrapulmonary Radiodensities thought likely infectious in etiology. Patient was sent for bronchoscopy that did not take place, and per review of records appears that preference is to perform this procedure under anesthesia. Her B-Glucan level was checked at [facility] [place] and still pending. Of note, patient also reports near continuous prednisone use as outpatient over the last 4-6 weeks. For now continue Vancomycin, Levofloxacin (D3), and Pip-Tazo (D7), along with added prednisone. Unfortunately at this point given extensive antibiotic and steroid use unsure of the utility of Bronchoscopy with BAL. Differential does include Legionella (serology still pending), Amiodarone Toxicity (Amio remains on hold), Eosinophilic Pneumonia (Although no evidence of eosinophilia by CBC), and atypical infection. Doubt fungal or PJP, but still possible. Plan is for repeat discussion in 2 days' time with Pulm regarding potential steps forward given lack of progress in patient's clinical picture. (2) ZAFAR (acute kidney injury): Current visit: Yes Status: Acute ZAFAR in setting of CKD, potentially prerenal in etiology in setting of acute illness and diuresis. No effect in breathing despite current lasix gtt - doubt edema. Discontinue lasix and monitor creatinine. Renally dose medications, and avoid nephrotoxins. (3) Hypertension: Current visit: Yes Status: Chronic (4) PAF (paroxysmal atrial fibrillation): Current visit: Yes Status: Chronic Previously maintained on antiarrhythmic therapy with amiodarone, on hold as above, as well as BB therapy. Continue to hold anticoagulation in case of potential Bronch on tuesday. Maintain on telemetry for now. 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 Will continue home regimen of furosemide but at daily dosing (QOD at home), but continue to hold YOBANY-I in setting of ZAFAR. Continue beta-eden as well. (6) Advance directive on file: Current visit: Yes Status: Acute Confirmed DNI, but patient would like resuscitation in the form of CPR. Will discuss further when family is available as well. (7) Adrenal insufficiency: Current visit: Yes Status: Suspected Presumed diagnosis based on Patient's complaint of hyperpigmentation, and low am cortisol. Will need outpatient follow-up with Endocrinology. (8) Blisters of multiple sites: Current visit: Yes Status: Resolved Bullous Pemphigoid per derm records. (9) DVT prophylaxis: Current visit: Yes Status: Acute Low-dose apixaban on hold - initiate SC Heparin. Continue PPI therapy for GI prophylaxis as well. Subjective Interval history since last seen: 83-year-old woman with a prior history of asthma, CHF, and PAF, admitted from [facility] with a diagnosis of pneumonia and ZAFAR. Mrs. Win has a past medical history significant for CHF with an LVEF of 45 to 50%, as well as mention of diastolic dysfunction by prior echo. She has a history of paroxysmal AFib currently in sinus rhythm while maintained on antiarrhythmic therapy with amiodarone, and on chronic anticoagulation. Her other history includes tachybradycardia syndrome s/p dual-chamber PPM placement in 2016, CKD, asthma, HTN, and PHTN. Review of her labs indicate a mild hypercalcemia in the past, unknown of the origin or prior work-up of this. The patient presented to the ED with reported shortness of breath, starting approx imately 5 days ago. She also associated her dyspnea with a dry cough. Upon presentation to the ED she was found to be hypoxic, tachypneic, and tachycardic. Her EKG was found to be nonischemic, and her initial troponin was undetectable. Her work-up was remarkable for evidence of a right-sided infiltrate by chest x- ray, interpreted as likely pneumonia, as well as a mild leukocytosis and elevated creatinine from baseline. Her calcium was also noted to be high. She was referred for admission for further evaluation and treatment. Following admission Mrs. Win's condition failed to improve despite broadening of antibiotic coverage. She was finally transferred to [facility] [place] for a planned Bronchoscopy which unfortunately did not occur, and she was sent back to [facility] without intervention. She reports unchanged symptoms of dyspnea today. No other events reported. Remains afebrile. Exam Narrative Exam Narrative: General: Patient appears comfortable, AAOX3, NAD Neck: Supple CV: Regular, nontachycardic, S1S2, 3/6 LLSB murmurs. Pulmonary: Area of decreased breath sounds with mild crackles and rhonchi at the right base continued, otherwise clear Abdomen: + Bowel Sounds, soft, nontender, nondistended Vascular: No lower extremity edema Psych: Normal mood and affect. Objective Objective Clinical Data: Abnormal lab results 09/09/18 09/09/18 Range/Units 06:20 06:20 WBC 23.87 H D (4.4-10.8) k/cumm MCHC 31.2 L (32.0-36.0) g/dL RDW 14.9 H (11.7-14.6) % Plt Count 454 H (130-400) x1000/uL Absolute Neutrophils 20.74 H (1.2-6.7) k/cumm Absolute Monocytes 1.27 H (0.11-0.7) k/cumm BUN 50 H (7-18) mg/dL Creatinine 1.89 H (0.55-1.02) mg/dL Vital Signs Temperature 36.7 C 09/09/18 15:32 Temperature Source Tympanic 09/09/18 15:32 Pulse 64 09/09/18 16:16 Pulse Rhythm Regular 09/09/18 15:20 Pulse 70 09/02/18 10:40 Respiratory Rate 20 09/09/18 15:32 Respiratory Effort Non-Labored 09/09/18 15:20 Respiratory Depth Normal 09/09/18 15:20 Respiratory Pattern Normal 09/09/18 15:20 Blood Pressure 134/66 09/09/18 15:32 Blood Pressure Mean 68 09/02/18 10:40 Blood Pressure Position Sitting 09/01/18 16:02 Pulse Oximetry 94 L 09/09/18 15:32 Oxygen Delivery Method Nasal Cannula 09/09/18 15:32 Oxygen Flow Rate 2 09/09/18 15:32 Pain Level 0 09/09/18 11:05 Comment 09/08/18 15:59 Intake & Output 09/08/18 09/09/18 09/09/18 23:59 11:59 23:59 Intake Total 141.792 / 971.054 0784 / 3286 550 / 3286 Output Total 1075 / 3400 450 / 1650 1200 / 1650 Balance -933.208 / -2858.208 2286 / 1636 -650 / 1636 Weight 54.2 kg Intake: IV 141.792 / 541.792 456 / 526 70 / 526 Oral 2280 / 2760 480 / 2760 Output: Urine 1075 / 3400 450 / 1650 1200 / 1650 Other: Urine Color Yellow Yellow Yellow Urine Appearance Clear Clear Clear Stool Size Moderate Moderate Stool Characteristics Soft Formed Formed Brown Laboratory Results WBC 23.87 k/cumm (4.4-10.8) H D 09/09/18 06:20 RBC 4.29 m/cumm (4.00-5.20) 09/09/18 06:20 Hgb 12.2 g/dL (12.0-15.5) 09/09/18 06:20 Hct 39.1 % (36.0-46.0) 09/09/18 06:20 MCV 91.1 fL (80-95) 09/09/18 06:20 MCH 28.4 pg (27.0-33.0) 09/09/18 06:20 MCHC 31.2 g/dL (32.0-36.0) L 09/09/18 06:20 RDW 14.9 % (11.7-14.6) H 09/09/18 06:20 Plt Count 454 x1000/uL (130-400) H 09/09/18 06:20 MPV 9.1 fL (8.0-11.0) 09/09/18 06:20 Immature Gran % 1.2 09/09/18 06:20 Neutrophils % 86.9 09/09/18 06:20 Lymphocytes % 6.6 09/09/18 06:20 Monocytes % 5.3 09/09/18 06:20 Eosinophils % 0.0 09/09/18 06:20 Basophils % 0.0 09/09/18 06:20 Absolute Neutrophils 20.74 k/cumm (1.2-6.7) H 09/09/18 06:20 Absolute Lymphocytes 1.58 k/cumm (1.2-3.4) 09/09/18 06:20 Absolute Monocytes 1.27 k/cumm (0.11-0.7) H 09/09/18 06:20 Absolute Eosinophils 0.00 k/cumm (0.0-0.7) 09/09/18 06:20 Absolute Basophils 0.00 k/cumm (0.0-0.2) 09/09/18 06:20 Differential Comment Agrees w/ instrument 09/09/18 06:20 RBC Morphology Normal 09/09/18 06:20 Sodium 137 mmol/L (136-145) 09/09/18 06:20 Potassium 3.6 mmol/L (3.5-5.1) 09/09/18 06:20 Chloride 101 mmol/L (98-107) 09/09/18 06:20 Carbon Dioxide 25.6 mmol/L (21.0-32.0) 09/09/18 06:20 Anion Gap 10.4 mmol/L (3-11) 09/09/18 06:20 BUN 50 mg/dL (7-18) H 09/09/18 06:20 Creatinine 1.89 mg/dL (0.55-1.02) H 09/09/18 06:20 Estimated GFR/1.73 m2 25.46 (mL/min/1.73m2) 09/09/18 06:20 Glucose 98 mg/dL (70-100) 09/09/18 06:20 Calcium 9.8 mg/dL (8.5-10.1) 09/09/18 06:20 Ionized Calcium 1.34 mmol/L (1.12-1.32) H 09/02/18 06:05 Magnesium 2.1 mg/dL (1.8-2.4) 09/09/18 06:20 Total Bilirubin 0.3 mg/dL (0.2-1.0) 09/03/18 06:40 Conjugated Bilirubin 0.08 mg/dL (0.00-0.20) 09/03/18 06:40 AST 32 U/L (15-37) 09/03/18 06:40 ALT 12 U/L (12-78) 09/03/18 06:40 Alkaline Phosphatase 101 U/L (46-116) 09/03/18 06:40 Lactate Dehydrogenase 251 U/L (81-234) H 09/08/18 06:25 Troponin I < 0.02 ng/mL (0.00-0.06) 09/01/18 09:00 NT-Pro-B Natriuret Pep 2537 pg/mL (-299) H 09/01/18 09:00 Total Protein 7.0 g/dL (6.4-8.2) 09/03/18 06:40 Albumin 2.1 g/dL (3.4-5.0) L 09/03/18 06:40 25-OH Vitamin D Total 35.4 ng/ml (30-100) 09/03/18 06:40 TSH 0.74 uIU/mL (0.358-3.74) 09/04/18 06:20 PTH Intact 74 pg/mL (19-88) 09/02/18 06:05 Cortisol 2 ug/dL 09/03/18 06:40
[2018-09-09] MEDS: Heparin 5,000 UNITS/ML VIAL 5000 UNITS SC (22:01)
[2018-09-10] VITALS (8 sets, daily range): BP systolic 126–150; BP diastolic 66–70; PULSE 60–68; RESP 18–19; TEMP 36.7–37.1; O2SAT 95–98
[2018-09-10] MEDS: Heparin 5,000 UNITS/ML VIAL 5000 UNITS SC ×3 (05:03→21:45)
[2018-09-10] MEDS: PIPERACILLIN/TAZO 3.375 GM in Normal Saline 50 ML IVPB ×3 (05:03→19:43)
[2018-09-10] MEDS: Normal Saline Flush 10 ML SYR IVP ×4 (05:04→21:45)
[2018-09-10] MEDS: Pantoprazole 40 MG TABCR PO (07:57)
[2018-09-10] MEDS: cloNIDine 0.1 MG TAB PO ×2 (07:57→19:44)
[2018-09-10] MEDS: predniSONE 20 MG TAB 60 MG PO (07:57)
[2018-09-10] MEDS: hydrALAZINE 10 MG TAB PO ×2 (07:57→19:44)
[2018-09-10] MEDS: Senna TAB 1 TAB PO ×2 (07:57→19:44)
[2018-09-10] MEDS: amLODIPine 5 MG TAB PO (07:58)
[2018-09-10] MEDS: Metoprolol 25 MG TAB PO ×2 (07:58→19:44)
[2018-09-10] MEDS: Furosemide 20 MG TAB PO (07:58)
[2018-09-10] MEDS: Docusate Sodium 100 MG CAP PO ×2 (07:58→19:44)
[2018-09-10 08:30] LABS: Abs Immature Grans 0.17 k/cumm (0.0-0.09); Absolute Eosinophil Count 0.02 k/cumm (0.0-0.7); Absolute Lymphocyte Count 1.13 k/cumm (1.2-3.4); Absolute Neutrophil Count 14.96 k/cumm (1.2-6.7); Basophils % 0.1; Eosinophils % 0.1; HCT 38.2 % (36.0-46.0); HGB 12.2 g/dL (12.0-15.5); Lymphocytes % 6.5; Mean Corp. HGB Concentration 31.9 g/dL (32.0-36.0); Mean Corpuscular Hemoglobin 28.8 pg (27.0-33.0); Mean Corpuscular Volume 90.3 fL (80-95); Monocytes % 6.3; Platelet Count 450 x1000/uL (130-400); RBC 4.23 m/cumm (4.00-5.20); RBC Distribution Width 14.5 % (11.7-14.6); White Blood Cell Count 17.39 k/cumm (4.4-10.8)
[2018-09-10 08:31] LABS: Absolute Basophil Count 0.02 k/cumm (0.0-0.2)
[2018-09-10 08:39] LABS: Anion Gap 8.1 mmol/L (3-11); BUN 46 mg/dL (7-18); CO2 26.9 mmol/L (21.0-32.0); CREATININE 1.77 mg/dL (0.55-1.02); Calcium 9.9 mg/dL (8.5-10.1); Chloride 98 mmol/L (98-107); Estimated GFR 27.46 (mL/min/1.73m2); Glucose 92 mg/dL (70-100); Magnesium 2.1 mg/dL (1.8-2.4); Potassium 3.7 mmol/L (3.5-5.1); Sodium 133 mmol/L (136-145)
[2018-09-10] MEDS: POTASSIUM CHLORIDE 20 MEQ, POTASSIUM CHLORIDE 10 MEQ 30 MEQ PO (11:20)
--- NOTE | 2018-09-10 11:35 | PT.INTREAT ---
Date of service: 09/10/18 Time of Service: 09:10 PT Notes Inpatient Physical Therapy Treatment Note [facility] Date: 09/10/18 SUBJECTIVE: Antonia states that she is anxious to know about her test results from [facility] [place]. OBJECTIVE: [] BED MOBILITY/TRANSFERS Sit-stand: I Stand-sit: I GAIT Assistive Device: none, however she did push her IV pole. Weight bearing: full Assist: SBA Distance: 250' THEREX: performed a global LE strength and stabilization routine. See flowsheet for specific ex details. ASSESSMENT: tolerated session well. Very little c/o SOB. No c/o leg pain today, both improvements from yesterday. PLAN: continue to progress her strength and endurance as well as independence with functional mobility. TREATMENT CODE/TIME: 25 min. TPx1, TAx1.
--- NOTE | 2018-09-10 11:39 | PTTR_ITS ---
Date of service: 09/10/18 Time of Service: 09:10 PT Notes Inpatient Physical Therapy Treatment Note [facility] Date: 09/10/18 SUBJECTIVE: Antonia states that she is anxious to know about her test results from [facility] [place]. OBJECTIVE: [] BED MOBILITY/TRANSFERS Sit-stand: I Stand-sit: I GAIT Assistive Device: none, however she did push her IV pole. Weight bearing: full Assist: SBA Distance: 250' THEREX: performed a global LE strength and stabilization routine. See flowsheet for specific ex details. ASSESSMENT: tolerated session well. Very little c/o SOB. No c/o leg pain today, both improvements from yesterday. PLAN: continue to progress her strength and endurance as well as independence with functional mobility. TREATMENT CODE/TIME: 25 min. TPx1, TAx1.
--- NOTE | 2018-09-10 14:41 | W.PM.PROGNOT ---
Date of Service Date of service: 09/10/18 Time of Service: 14:41 Assessment and Plan (1) Pneumonia: Current visit: Yes Status: Acute Likely diagnosis of pneumonia based on symptoms and imaging, failed to improve despite broad spectrum antibiotic therapy. CT of the chest with Diffuse b/l R>L Intrapulmonary Radiodensities thought likely infectious in etiology. Patient was sent for bronchoscopy that did not take place, and per review of records appears that preference is to perform this procedure under anesthesia. Her B-Glucan level was checked at [facility] and still pending. Of note, patient also reports near continuous prednisone use as outpatient over the last 4-6 weeks. For now continue Vancomycin, Levofloxacin (D4), and Pip-Tazo (D8), along with added prednisone. Unfortunately at this point given extensive antibiotic and steroid use unsure of the utility of Bronchoscopy with BAL. Differential does include Legionella (serology still pending), Amiodarone Toxicity (Amio remains on hold), Eosinophilic Pneumonia (Although no evidence of eosinophilia by CBC), and atypical infection. Doubt fungal or PJP, but still possible. Plan is for repeat discussion tomorrow time with Pulm regarding potential steps forward given lack of progress in patient's clinical picture. (2) ZAFAR (acute kidney injury): Current visit: Yes Status: Acute ZAFAR in setting of CKD, potentially prerenal in etiology in setting of acute illness and diuresis. No effect in breathing despite attempts at diuresis - lasix gtt was discontinued. Renally dose medications, and avoid nephrotoxins. (3) Hypertension: Current visit: Yes Status: Chronic (4) PAF (paroxysmal atrial fibrillation): Current visit: Yes Status: Chronic Previously maintained on antiarrhythmic therapy with amiodarone, on hold as above, as well as BB therapy. Continue to hold anticoagulation in case of potential Bronch on tuesday. Maintain on telemetry for now. Consider cardiology consult. 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 Will continue home regimen of furosemide but at daily dosing (QOD at home), but continue to hold YOBANY-I in setting of ZAFAR. Continue beta-eden as well. (6) Advance directive on file: Current visit: Yes Status: Acute Confirmed DNR/DNI. (7) Adrenal insufficiency: Current visit: Yes Status: Suspected Presumed diagnosis based on Patient's complaint of hyperpigmentation, and low am cortisol. Will need outpatient follow-up with Endocrinology. (8) Blisters of multiple sites: Current visit: Yes Status: Resolved Bullous Pemphigoid per derm records. (9) DVT prophylaxis: Current visit: Yes Status: Acute Low-dose apixaban on hold - initiated SC Heparin. Continue PPI therapy for GI prophylaxis as well. Subjective Interval history since last seen: 83-year-old woman with a prior history of asthma, CHF, and PAF, admitted from [facility] Emergency [facility]artments with a diagnosis of pneumonia and ZAFAR. Mrs. Win has a past medical history significant for CHF with an LVEF of 45 to 50%, as well as mention of diastolic dysfunction by prior echo. She has a history of paroxysmal AFib currently in sinus rhythm while maintained on antiarrhythmic therapy with amiodarone, and on chronic anticoagulation. Her other history includes tachybradycardia syndrome s/p dual-chamber PPM placement in 2016, CKD, asthma, HTN, and PHTN. Review of her labs indicate a mild hypercalcemia in the past, unknown of the origin or prior work-up of this. The patient presented to the ED with reported shortness of breath, starting approximately 5 days ago. She also associated her dyspnea with a dry cough. Upon presentation to the ED she was found to be hypoxic, tachypneic, and tachycardic. Her EKG was found to be nonischemic, and her initial troponin was undetectable. Her work-up was remarkable for evidence of a right-sided infiltrate by chest x-ray, interpreted as likely pneumonia, as well as a mild leukocytosis and elevated creatinine from baseline. Her calcium was also noted to be high. She was referred for admission for further evaluation and treatment. Following admission Mrs. Win's condition failed to improve despite broadening of antibiotic coverage. She was finally transferred to [facility] on 09/08 for a planned Bronchoscopy which unfortunately did not occur, and she was sent back to [facility] without intervention. She reports unchanged symptoms of dyspnea again today. No other events reported. Remains afebrile. Exam Narrative Exam Narrative: General: Patient appears comfortable, AAOX3, NAD Neck: Supple CV: Regular, nontachycardic, S1S2, 3/6 LLSB murmurs. Pulmonary: Area of decreased breath sounds with mild crackles and rhonchi at the right base continued, otherwise clear Abdomen: + Bowel Sounds, soft, nontender, nondistended Vascular: No lower extremity edema Psych: Normal mood and affect. Objective Objective Clinical Data: Abnormal lab results 09/10/18 09/10/18 Range/Units 08:04 08:04 WBC 17.39 H (4.4-10.8) k/cumm MCHC 31.9 L (32.0-36.0) g/dL Plt Count 450 H (130-400) x1000/uL Absolute Neutrophils 14.96 H (1.2-6.7) k/cumm Absolute Lymphocytes 1.13 L (1.2-3.4) k/cumm Absolute Monocytes 1.10 H (0.11-0.7) k/cumm Sodium 133 L (136-145) mmol/L BUN 46 H (7-18) mg/dL Creatinine 1.77 H (0.55-1.02) mg/dL Vital Signs Temperature 36.7 C 09/10/18 11:23 Temperature Source Tympanic 09/10/18 11:23 Pulse 60 09/10/18 11:23 Pulse Rhythm Regular 09/10/18 10:05 Pulse 70 09/02/18 10:40 Respiratory Rate 19 09/10/18 11:23 Respiratory Effort Non-Labored 09/10/18 10:05 Respiratory Depth Normal 09/10/18 10:05 Respiratory Pattern Normal 09/10/18 10:05 Blood Pressure 126/70 09/10/18 11:23 Blood Pressure Mean 68 09/02/18 10:40 Blood Pressure Position Sitting 09/01/18 16:02 Pulse Oximetry 97 09/10/18 11:23 Oxygen Delivery Method Room Air 09/10/18 11:23 Oxygen Flow Rate 0 09/10/18 11:23 Pain Level 0 09/10/18 04:05 Comment 09/10/18 04:05 Intake & Output 09/09/18 09/10/18 09/10/18 23:59 11:59 23:59 Intake Total 550 / 3286 1840 / 2580 740 / 2580 Output Total 1550 / 2000 3250 / 4450 1200 / 4450 Balance -1000 / 1286 -1410 / -1870 -460 / -1870 Weight 55.3 kg Intake: IV 70 / 526 450 / 450 Oral 480 / 2760 1390 / 2130 740 / 2130 Output: Urine 1550 / 2000 3250 / 4450 1200 / 4450 Other: Urine Color Yellow Pale Pale Yellow Urine Appearance Clear Clear Clear Stool Size Moderate Small Stool Characteristics Formed Soft Brown Laboratory Results WBC 17.39 k/cumm (4.4-10.8) H 09/10/18 08:04 RBC 4.23 m/cumm (4.00-5.20) 09/10/18 08:04 Hgb 12.2 g/dL (12.0-15.5) 09/10/18 08:04 Hct 38.2 % (36.0-46.0) 09/10/18 08:04 MCV 90.3 fL (80-95) 09/10/18 08:04 MCH 28.8 pg (27.0-33.0) 09/10/18 08:04 MCHC 31.9 g/dL (32.0-36.0) L 09/10/18 08:04 RDW 14.5 % (11.7-14.6) 09/10/18 08:04 Plt Count 450 x1000/uL (130-400) H 09/10/18 08:04 MPV 9.0 fL (8.0-11.0) 09/10/18 08:04 Immature Gran % 1.0 09/10/18 08:04 Neutrophils % 86.0 09/10/18 08:04 Lymphocytes % 6.5 09/10/18 08:04 Monocytes % 6.3 09/10/18 08:04 Eosinophils % 0.1 09/10/18 08:04 Basophils % 0.1 09/10/18 08:04 Absolute Neutrophils 14.96 k/cumm (1.2-6.7) H 09/10/18 08:04 Absolute Lymphocytes 1.13 k/cumm (1.2-3.4) L 09/10/18 08:04 Absolute Monocytes 1.10 k/cumm (0.11-0.7) H 09/10/18 08:04 Absolute Eosinophils 0.02 k/cumm (0.0-0.7) 09/10/18 08:04 Absolute Basophils 0.02 k/cumm (0.0-0.2) 09/10/18 08:04 Differential Comment Agrees w/ instrument 09/09/18 06:20 RBC Morphology Normal 09/09/18 06:20 Sodium 133 mmol/L (136-145) L 09/10/18 08:04 Potassium 3.7 mmol/L (3.5-5.1) 09/10/18 08:04 Chloride 98 mmol/L (98-107) 09/10/18 08:04 Carbon Dioxide 26.9 mmol/L (21.0-32.0) 09/10/18 08:04 Anion Gap 8.1 mmol/L (3-11) 09/10/18 08:04 BUN 46 mg/dL (7-18) H 09/10/18 08:04 Creatinine 1.77 mg/dL (0.55-1.02) H 09/10/18 08:04 Estimated GFR/1.73 m2 27.46 (mL/min/1.73m2) 09/10/18 08:04 Glucose 92 mg/dL (70-100) 09/10/18 08:04 Calcium 9.9 mg/dL (8.5-10.1) 09/10/18 08:04 Ionized Calcium 1.34 mmol/L (1.12-1.32) H 09/02/18 06:05 Magnesium 2.1 mg/dL (1.8-2.4) 09/10/18 08:04 Total Bilirubin 0.3 mg/dL (0.2-1.0) 09/03/18 06:40 Conjugated Bilirubin 0.08 mg/dL (0.00-0.20) 09/03/18 06:40 AST 32 U/L (15-37) 09/03/18 06:40 ALT 12 U/L (12-78) 09/03/18 06:40 Alkaline Phosphatase 101 U/L (46-116) 09/03/18 06:40 Lactate Dehydrogenase 251 U/L (81-234) H 09/08/18 06:25 Troponin I < 0.02 ng/mL (0.00-0.06) 09/01/18 09:00 NT-Pro-B Natriuret Pep 2537 pg/mL (-299) H 09/01/18 09:00 Total Protein 7.0 g/dL (6.4-8.2) 09/03/18 06:40 Albumin 2.1 g/dL (3.4-5.0) L 09/03/18 06:40 25-OH Vitamin D Total 35.4 ng/ml (30-100) 09/03/18 06:40 TSH 0.74 uIU/mL (0.358-3.74) 09/04/18 06:20 PTH Intact 74 pg/mL (19-88) 09/02/18 06:05 Cortisol 2 ug/dL 09/03/18 06:40
--- NOTE | 2018-09-10 16:31 | PDOC.CMPRO ---
Care Management Progress Note S/O: Antonia remains pleasant in interaction and continues to share concerns around her clinical status. She was disappointed that the test was not completed when she went to [facility]. Her was in to visit today. States she wants to return to her daughter's home. Said they have a good system and she does not want to go to [facility]. A: 83 year old female admitted to [facility] 09/01/18 for Pneumonia, CHF P: Antonia will return home when ready per MD. She will follow up with her PCP and plan of care as prescribed including likely follow up with her outpatient preparation center coordinator for possible elective cardioversion-will also need to follow up with Dr Colindres (derm) as outpatient. Antonia will have endocrinology referral for adrenal insufficiency and be on a prolonged taper. Daughter will transport home when medically cleared for discharge.
--- NOTE | 2018-09-10 16:34 | CMPROGNOTE_ITS ---
Care Management Progress Note S/O: Antonia remains pleasant in interaction and continues to share concerns around her clinical status. She was disappointed that the test was not completed when she went to [place]. Her was in to visit today. States she wants to return to her daughter's home. Said they have a good system and she does not want to go to [facility]. A: 83 year old female admitted to [facility] 09/01/18 for Pneumonia, CHF P: Antonia will return home when ready per MD. She will follow up with her PCP and plan of care as prescribed including likely follow up with her outpatient embossograph operator for possible elective cardioversion-will also need to follow up with Dr Colindres (derm) as outpatient. Antonia will have endocrinology referral for adrenal insufficiency and be on a prolonged taper. Daughter will transport home when medically cleared for discharge.
[2018-09-11] VITALS (14 sets, daily range): BP systolic 115–164; BP diastolic 66–87; PULSE 56–64; RESP 16–20; TEMP 36.2–36.9; O2SAT 89–98
[2018-09-11] MEDS: PIPERACILLIN/TAZO 3.375 GM in Normal Saline 50 ML IVPB ×2 (03:38→11:32)
[2018-09-11] MEDS: Normal Saline Flush 10 ML SYR IVP ×3 (03:39→17:02)
[2018-09-11] MEDS: VANCOMYCIN 750 MG in Normal Saline 250 ML 166.667 MG IVPB (06:17)
[2018-09-11] MEDS: Heparin 5,000 UNITS/ML VIAL 5000 UNITS SC ×2 (06:17→13:40)
[2018-09-11 08:30] LABS: Abs Immature Grans 0.12 k/cumm (0.0-0.09); Absolute Basophil Count 0.01 k/cumm (0.0-0.2); Absolute Lymphocyte Count 1.22 k/cumm (1.2-3.4); Absolute Monocyte Count 0.98 k/cumm (0.11-0.7); Absolute Neutrophil Count 11.47 k/cumm (1.2-6.7); Basophils % 0.1; Eosinophils % 0.1; HCT 37.7 % (36.0-46.0); HGB 11.8 g/dL (12.0-15.5); Immature Grans % 0.9; Lymphocytes % 8.8; Mean Corp. HGB Concentration 31.3 g/dL (32.0-36.0); Mean Corpuscular Hemoglobin 28.3 pg (27.0-33.0); Mean Corpuscular Volume 90.4 fL (80-95); Mean Platelet Volume 8.9 fL (8.0-11.0); Monocytes % 7.1; Platelet Count 436 x1000/uL (130-400); RBC 4.17 m/cumm (4.00-5.20); RBC Distribution Width 14.4 % (11.7-14.6); White Blood Cell Count 13.82 k/cumm (4.4-10.8)
[2018-09-11 08:31] LABS: Absolute Eosinophil Count 0.01 k/cumm (0.0-0.7)
[2018-09-11] MEDS: Pantoprazole 40 MG TABCR PO (08:44)
[2018-09-11] MEDS: Metoprolol 25 MG TAB PO ×2 (08:44→20:13)
[2018-09-11] MEDS: amLODIPine 5 MG TAB PO (08:44)
[2018-09-11] MEDS: Furosemide 20 MG TAB PO (08:44)
[2018-09-11] MEDS: hydrALAZINE 10 MG TAB PO ×2 (08:44→20:11)
[2018-09-11] MEDS: Docusate Sodium 100 MG CAP PO ×2 (08:44→20:13)
[2018-09-11] MEDS: Senna TAB 1 TAB PO ×2 (08:44→20:13)
[2018-09-11] MEDS: predniSONE 20 MG TAB 60 MG PO (08:45)
[2018-09-11] MEDS: cloNIDine 0.1 MG TAB PO ×2 (08:45→20:13)
[2018-09-11 08:47] LABS: Anion Gap 8.1 mmol/L (3-11); BUN 41 mg/dL (7-18); CO2 23.9 mmol/L (21.0-32.0); CREATININE 1.58 mg/dL (0.55-1.02); Chloride 103 mmol/L (98-107); Estimated GFR 31.31 (mL/min/1.73m2); Glucose 92 mg/dL (70-100); Magnesium 2.2 mg/dL (1.8-2.4); Potassium 4.1 mmol/L (3.5-5.1); Sodium 135 mmol/L (136-145)
--- NOTE | 2018-09-11 08:59 | CMPROGNOTE_ITS ---
Care Management Progress Note S/O: Antonia was sitting up in her chair, oxygen off when CM met with her. She remains pleasant in interaction and appreciative of her care. She reported she is looking forward to returning home when ready and spoke about her weekend and visits from her family, including her . CM will continue to follow. A: 83 year old female admitted to [facility] 09/01/18 for Pneumonia, CHF P: Antonia will return home when ready per MD. She will have an outpatient follow up plan including appointments. She will transport home via private vehicle with her daughter when medically cleared for discharge.
--- NOTE | 2018-09-11 16:00 | W.PM.PROGNOT ---
Date of Service Date of service: 09/11/18 Time of Service: 16:05 Assessment and Plan (1) Pneumonia: Current visit: Yes Status: Acute Initial diagnosis of pneumonia based on symptoms and imaging, failed to improve despite broad spectrum antibiotic therapy. CT of the chest with Diffuse b/l R>L Intrapulmonary Radiodensities thought likely infectious in etiology. Patient was sent for bronchoscopy that did not take place, and per review of records appears that preference is to perform this procedure under anesthesia. Her B-Glucan level was checked at [facility] and still pending. Of note, patient also reports near continuous prednisone use as outpatient over the last 4-6 weeks. Will conclude antibiotic therapy with Vancomycin, Levofloxacin (D5), and discontinue Pip-Tazo following 8 days of therapy. Patient's improvement may be due to the addition of prednisone, initiated 3 days ago at 1mg/kg. Unfortunately at this point given extensive antibiotic and steroid use unsure of the utility of Bronchoscopy with BAL. Differential does include Legionella (serology still pending), Amiodarone Toxicity (Amio remains on hold), Eosinophilic Pneumonia (Although no evidence of eosinophilia by CBC), and atypical infection. Doubt fungal or PJP, but still possible. Discussed case with Dr. Jasmyn Mustafa from [facility] - due to the significant findings on CT the patient is scheduled for follow-up in the pulmonary clinic in 4 days (Tuesday at noon). Will conclude antibiotics, with plans on decreasing steroid dose to 40mg, with discharge tomorrow. (2) ZAFAR (acute kidney injury): Current visit: Yes Status: Acute ZAFAR in setting of CKD, potentially prerenal in etiology in setting of acute illness and diuresis. No effect in breathing despite attempts at diuresis - lasix gtt was discontinued. Renally dose medications, and avoid nephrotoxins. Hemoglobin has improved. (3) Hypertension: Current visit: Yes Status: Chronic (4) PAF (paroxysmal atrial fibrillation): Current visit: Yes Status: Chronic Previously maintained on antiarrhythmic therapy with amiodarone, on hold as above, as well as BB therapy. Restart anticoagulation as no plans for Bronchoscopy. Maintain on telemetry for now. Consider cardiology follow-up. (5) CHF (congestive heart failure): Current visit: Yes Status: Chronic Evidence of both systolic and diastolic CHF by last echo in 2016, with an ejection fraction of 45 to 50%. Will continue furosemide but at daily dosing (QOD at home), but continue to hold YOBANY-I in setting of ZAFAR. Continue beta-eden as well. (6) Advance directive on file: Current visit: Yes Status: Acute Confirmed DNR/DNI. (7) Adrenal insufficiency: Current visit: Yes Status: Suspected Presumed diagnosis based on Patient's complaint of hyperpigmentation, and low am cortisol. Will need outpatient follow-up with Endocrinology. (8) Blisters of multiple sites: Current visit: Yes Status: Resolved Bullous Pemphigoid per derm records. (9) DVT prophylaxis: Current visit: Yes Status: Acute Low-dose apixaban restarted - discontinue SC Heparin. Continue PPI therapy for GI prophylaxis as well. Subjective Interval history since last seen: 83-year-old woman with a prior history of asthma, CHF, and PAF, admitted from [facility] Emergency Departments with a diagnosis of pneumonia and ZAFAR. Mrs. Win has a past medical history significant for CHF with an LVEF of 45 to 50%, as well as mention of diastolic dysfunction by prior echo. She has a history of paroxysmal AFib currently in sinus rhythm while maintained on antiarrhythmic therapy with amiodarone, and on chronic anticoagulation. Her other history includes tachybradycardia syndrome s/p dual-chamber PPM placement in 2016, CKD, asthma, HTN, and PHTN. Review of her labs indicate a mild hypercalcemia in the past, unknown of the origin or prior work-up of this. The patient presented to the ED with reported shortness of breath, starting approximately 5 days ago. She also associated her dyspnea with a dry cough. Upon presentation to the ED she was found to be hypoxic, tachypneic, and tachycardic. Her EKG was found to be nonischemic, and her initial troponin was undetectable. Her work-up was remarkable for evidence of a right-sided infiltrate by chest x-ray, interpreted as likely pneumonia, as well as a mild leukocytosis and elevated creatinine from baseline. Her calcium was also noted to be high. She was referred for admission for further evaluation and treatment. Following admission Mrs. Win's condition failed to improve despite broadening of antibiotic coverage. She was finally transferred to [facility] on 09/08 for a planned Bronchoscopy which unfortunately did not occur, and she was sent back to [facility] without intervention. She was initiated on steroid therapy and today finally reports subjective improvement, and was able to be weaned off oxygen therapy at rest. She is scheduled to see Pulmonary at [facility] this coming Tuesday. No other events reported. Remains afebrile. Exam Narrative Exam Narrative: General: Patient appears comfortable, AAOX3, NAD Neck: Supple CV: Regular, nontachycardic, S1S2, 3/6 LLSB murmurs. Pulmonary: Area of decreased breath sounds with mild crackles and rhonchi at the right base continued but appears improved. No wheezing. Abdomen: + Bowel Sounds, soft, nontender, nondistended Vascular: No lower extremity edema Psych: Normal mood and affect. Objective Objective Clinical Data: Abnormal lab results 09/11/18 09/11/18 Range/Units 08:00 08:00 WBC 13.82 H (4.4-10.8) k/cumm Hgb 11.8 L (12.0-15.5) g/dL MCHC 31.3 L (32.0-36.0) g/dL Plt Count 436 H (130-400) x1000/uL Absolute Neutrophils 11.47 H (1.2-6.7) k/cumm Absolute Monocytes 0.98 H (0.11-0.7) k/cumm Sodium 135 L (136-145) mmol/L BUN 41 H (7-18) mg/dL Creatinine 1.58 H (0.55-1.02) mg/dL Vital Signs Temperature 36.9 C 09/11/18 15:31 Temperature Source Tympanic 09/11/18 15:31 Pulse 56 L 09/11/18 15:31 Pulse Rhythm Regular 09/11/18 09:24 Pulse 70 09/02/18 10:40 Respiratory Rate 18 09/11/18 15:31 Respiratory Effort Non-Labored 09/11/18 09:24 Respiratory Depth Normal 09/11/18 09:24 Respiratory Pattern Normal 09/11/18 09:24 Blood Pressure 119/70 09/11/18 15:31 Blood Pressure Mean 68 09/02/18 10:40 Blood Pressure Position Sitting 09/01/18 16:02 Pulse Oximetry 98 09/11/18 15:31 Oxygen Delivery Method Room Air 09/11/18 15:31 Oxygen Flow Rate 0 09/11/18 15:31 Pain Level 0 09/11/18 11:28 Comment 09/11/18 08:50 Intake & Output 09/10/18 09/11/18 09/11/18 23:59 11:59 23:59 Intake Total 1090 / 2930 90 / 90 Output Total 2700 / 5950 1850 / 1850 Balance -1610 / -3020 -1760 / -1760 Weight 56.8 kg Intake: IV 110 / 560 90 / 90 Oral 980 / 2370 Output: Urine 2700 / 5950 1850 / 1850 Other: Urine Color Yellow Pale Urine Appearance Clear Clear Urine Odor None Stool Size Moderate Moderate Stool Characteristics Soft Soft Brown Voiding Methods Toilet Toilet Laboratory Results WBC 13.82 k/cumm (4.4-10.8) H 09/11/18 08:00 RBC 4.17 m/cumm (4.00-5.20) 09/11/18 08:00 Hgb 11.8 g/dL (12.0-15.5) L 09/11/18 08:00 Hct 37.7 % (36.0-46.0) 09/11/18 08:00 MCV 90.4 fL (80-95) 09/11/18 08:00 MCH 28.3 pg (27.0-33.0) 09/11/18 08:00 MCHC 31.3 g/dL (32.0-36.0) L 09/11/18 08:00 RDW 14.4 % (11.7-14.6) 09/11/18 08:00 Plt Count 436 x1000/uL (130-400) H 09/11/18 08:00 MPV 8.9 fL (8.0-11.0) 09/11/18 08:00 Immature Gran % 0.9 09/11/18 08:00 Neutrophils % 83.0 09/11/18 08:00 Lymphocytes % 8.8 09/11/18 08:00 Monocytes % 7.1 09/11/18 08:00 Eosinophils % 0.1 09/11/18 08:00 Basophils % 0.1 09/11/18 08:00 Absolute Neutrophils 11.47 k/cumm (1.2-6.7) H 09/11/18 08:00 Absolute Lymphocytes 1.22 k/cumm (1.2-3.4) 09/11/18 08:00 Absolute Monocytes 0.98 k/cumm (0.11-0.7) H 09/11/18 08:00 Absolute Eosinophils 0.01 k/cumm (0.0-0.7) 09/11/18 08:00 Absolute Basophils 0.01 k/cumm (0.0-0.2) 09/11/18 08:00 Differential Comment Agrees w/ instrument 09/09/18 06:20 RBC Morphology Normal 09/09/18 06:20 Sodium 135 mmol/L (136-145) L 09/11/18 08:00 Potassium 4.1 mmol/L (3.5-5.1) 09/11/18 08:00 Chloride 103 mmol/L (98-107) 09/11/18 08:00 Carbon Dioxide 23.9 mmol/L (21.0-32.0) 09/11/18 08:00 Anion Gap 8.1 mmol/L (3-11) 09/11/18 08:00 BUN 41 mg/dL (7-18) H 09/11/18 08:00 Creatinine 1.58 mg/dL (0.55-1.02) H 09/11/18 08:00 Estimated GFR/1.73 m2 31.31 (mL/min/1.73m2) 09/11/18 08:00 Glucose 92 mg/dL (70-100) 09/11/18 08:00 Calcium 10.0 mg/dL (8.5-10.1) 09/11/18 08:00 Ionized Calcium 1.34 mmol/L (1.12-1.32) H 09/02/18 06:05 Magnesium 2.2 mg/dL (1.8-2.4) 09/11/18 08:00 Total Bilirubin 0.3 mg/dL (0.2-1.0) 09/03/18 06:40 Conjugated Bilirubin 0.08 mg/dL (0.00-0.20) 09/03/18 06:40 AST 32 U/L (15-37) 09/03/18 06:40 ALT 12 U/L (12-78) 09/03/18 06:40 Alkaline Phosphatase 101 U/L (46-116) 09/03/18 06:40 Lactate Dehydrogenase 251 U/L (81-234) H 09/08/18 06:25 Troponin I < 0.02 ng/mL (0.00-0.06) 09/01/18 09:00 NT-Pro-B Natriuret Pep 2537 pg/mL (-299) H 09/01/18 09:00 Total Protein 7.0 g/dL (6.4-8.2) 09/03/18 06:40 Albumin 2.1 g/dL (3.4-5.0) L 09/03/18 06:40 25-OH Vitamin D Total 35.4 ng/ml (30-100) 09/03/18 06:40 TSH 0.74 uIU/mL (0.358-3.74) 09/04/18 06:20 PTH Intact 74 pg/mL (19-88) 09/02/18 06:05 Cortisol 2 ug/dL 09/03/18 06:40
--- NOTE | 2018-09-11 16:14 | PGE_ITS ---
Date of Service Date of service: 09/11/18 Time of Service: 16:05 Assessment and Plan (1) Pneumonia: Current visit: Yes Status: Acute Initial diagnosis of pneumonia based on symptoms and imaging, failed to improve despite broad spectrum antibiotic therapy. CT of the chest with Diffuse b/l R>L Intrapulmonary Radiodensities thought likely infectious in etiology. Patient was sent for bronchoscopy that did not take place, and per review of records appears that preference is to perform this procedure under anesthesia. Her B-Glucan level was checked at [facility] and still pending. Of note, patient also reports near continuous prednisone use as outpatient over the last 4-6 weeks. Will conclude antibiotic therapy with Vancomycin, Levofloxacin (D5), and discontinue Pip-Tazo following 8 days of therapy. Patient's improvement may be due to the addition of prednisone, initiated 3 days ago at 1mg/kg. Unfortunately at this point given extensive antibiotic and steroid use unsure of the utility of Bronchoscopy with BAL. Differential does include Legionella (serology still pending), Amiodarone Toxicity (Amio remains on hold), Eosinophilic Pneumonia (Although no evidence of eosinophilia by CBC), and atypical infection. Doubt fungal or PJP, but still possible. Discussed case with Dr. Jasmyn Mustafa from [facility] - due to the significant findings on CT the patient is scheduled for follow-up in the pulmonary clinic in 4 days (Tuesday at noon). Will conclude antibiotics, with plans on decreasing steroid dose to 40mg, with discharge tomorrow. (2) ZAFAR (acute kidney injury): Current visit: Yes Status: Acute ZAFAR in setting of CKD, potentially prerenal in etiology in setting of acute illness and diuresis. No effect in breathing despite attempts at diuresis - lasix gtt was discontinued. Renally dose medications, and avoid nephrotoxins. Hemoglobin has improved. (3) Hypertension: Current visit: Yes Status: Chronic (4) PAF (paroxysmal atrial fibrillation): Current visit: Yes Status: Chronic Previously maintained on antiarrhythmic therapy with amiodarone, on hold as above, as well as BB therapy. Restart anticoagulation as no plans for Bronchoscopy. Maintain on telemetry for now. Consider cardiology follow-up. (5) CHF (congestive heart failure): Current visit: Yes Status: Chronic Evidence of both systolic and diastolic CHF by last echo in 2016, with an ejection fraction of 45 to 50%. Will continue furosemide but at daily dosing (QOD at home), but continue to hold YOBANY-I in setting of ZAFAR. Continue beta- eden as well. (6) Advance directive on file: Current visit: Yes Status: Acute Confirmed DNR/DNI. (7) Adrenal insufficiency: Current visit: Yes Status: Suspected Presumed diagnosis based on Patient's complaint of hyperpigmentation, and low am cortisol. Will need outpatient follow-up with Endocrinology. (8) Blisters of multiple sites: Current visit: Yes Status: Resolved Bullous Pemphigoid per derm records. (9) DVT prophylaxis: Current visit: Yes Status: Acute Low-dose apixaban restarted - discontinue SC Heparin. Continue PPI therapy for GI prophylaxis as well. Subjective Interval history since last seen: 83-year-old woman with a prior history of asthma, CHF, and PAF, admitted from [facility] with a diagnosis of pneumonia and ZAFAR. Mrs. Win has a past medical history significant for CHF with an LVEF of 45 to 50%, as well as mention of diastolic dysfunction by prior echo. She has a history of paroxysmal AFib currently in sinus rhythm while maintained on antiarrhythmic therapy with amiodarone, and on chronic anticoagulation. Her other history includes tachybradycardia syndrome s/p dual-chamber PPM placement in 2016, CKD, asthma, HTN, and PHTN. Review of her labs indicate a mild hype rcalcemia in the past, unknown of the origin or prior work-up of this. The patient presented to the ED with reported shortness of breath, starting approximately 5 days ago. She also associated her dyspnea with a dry cough. Upon presentation to the ED she was found to be hypoxic, tachypneic, and tachycardic. Her EKG was found to be nonischemic, and her initial troponin was undetectable. Her work-up was remarkable for evidence of a right-sided infiltrate by chest x-ray, interpreted as likely pneumonia, as well as a mild leukocytosis and elevated creatinine from baseline. Her calcium was also noted to be high. She was referred for admission for further evaluation and treatment. Following admission Mrs. Win's condition failed to improve despite broadening of antibiotic coverage. She was finally transferred to [facility] on 09/08 for a planned Bronchoscopy which unfortunately did not occur, and she was sent back to [facility] without intervention. She was initiated on steroid therapy and today finally reports subjective improvement, and was able to be weaned off oxygen therapy at rest. She is scheduled to see Pulmonary at [facility] this coming Tuesday. No other events reported. Remains afebrile. Exam Narrative Exam Narrative: General: Patient appears comfortable, AAOX3, NAD Neck: Supple CV: Regular, nontachycardic, S1S2, 3/6 LLSB murmurs. Pulmonary: Area of decreased breath sounds with mild crackles and rhonchi at the right base continued but appears improved. No wheezing. Abdomen: + Bowel Sounds, soft, nontender, nondistended Vascular: No lower extremity edema Psych: Normal mood and affect. Objective Objective Clinical Data: Abnormal lab results 09/11/18 09/11/18 Range/Units 08:00 08:00 WBC 13.82 H (4.4-10.8) k/cumm Hgb 11.8 L (12.0-15.5) g/dL MCHC 31.3 L (32.0-36.0) g/dL Plt Count 436 H (130-400) x1000/uL Absolute Neutrophils 11.47 H (1.2-6.7) k/cumm Absolute Monocytes 0.98 H (0.11-0.7) k/cumm Sodium 135 L (136-145) mmol/L BUN 41 H (7-18) mg/dL Creatinine 1.58 H (0.55-1.02) mg/dL Vital Signs Temperature 36.9 C 09/11/18 15:31 Temperature Source Tympanic 09/11/18 15:31 Pulse 56 L 09/11/18 15:31 Pulse Rhythm Regular 09/11/18 09:24 Pulse 70 09/02/18 10:40 Respiratory Rate 18 09/11/18 15:31 Respiratory Effort Non-Labored 09/11/18 09:24 Respiratory Depth Normal 09/11/18 09:24 Respiratory Pattern Normal 09/11/18 09:24 Blood Pressure 119/70 09/11/18 15:31 Blood Pressure Mean 68 09/02/18 10:40 Blood Pressure Position Sitting 09/01/18 16:02 Pulse Oximetry 98 09/11/18 15:31 Oxygen Delivery Method Room Air 09/11/18 15:31 Oxygen Flow Rate 0 09/11/18 15:31 Pain Level 0 09/11/18 11:28 Comment 09/11/18 08:50 Intake & Output 09/10/18 09/11/18 09/11/18 23:59 11:59 23:59 Intake Total 1090 / 2930 90 / 90 Output Total 2700 / 5950 1850 / 1850 Balance -1610 / -3020 -1760 / -1760 Weight 56.8 kg Intake: IV 110 / 560 90 / 90 Oral 980 / 2370 Output: Urine 2700 / 5950 1850 / 1850 Other: Urine Color Yellow Pale Urine Appearance Clear Clear Urine Odor None Stool Size Moderate Moderate Stool Characteristics Soft Soft Brown Voiding Methods Toilet Toilet Laboratory Results WBC 13.82 k/cumm (4.4-10.8) H 09/11/18 08:00 RBC 4.17 m/cumm (4.00-5.20) 09/11/18 08:00 Hgb 11.8 g/dL (12.0-15.5) L 09/11/18 08:00 Hct 37.7 % (36.0-46.0) 09/11/18 08:00 MCV 90.4 fL (80-95) 09/11/18 08:00 MCH 28.3 pg (27.0-33.0) 09/11/18 08:00 MCHC 31.3 g/dL (32.0-36.0) L 09/11/18 08:00 RDW 14.4 % (11.7-14.6) 09/11/18 08:00 Plt Count 436 x1000/uL (130-400) H 09/11/18 08:00 MPV 8.9 fL (8.0-11.0) 09/11/18 08:00 Immature Gran % 0.9 09/11/18 08:00 Neutrophils % 83.0 09/11/18 08:00 Lymphocytes % 8.8 09/11/18 08:00 Monocytes % 7.1 09/11/18 08:00 Eosinophils % 0.1 09/11/18 08:00 Basophils % 0.1 09/11/18 08:00 Absolute Neutrophils 11.47 k/cumm (1.2-6.7) H 09/11/18 08:00 Absolute Lymphocytes 1.22 k/cumm (1.2-3.4) 09/11/18 08:00 Absolute Monocytes 0.98 k/cumm (0.11-0.7) H 09/11/18 08:00 Absolute Eosinophils 0.01 k/cumm (0.0-0.7) 09/11/18 08:00 Absolute Basophils 0.01 k/cumm (0.0-0.2) 09/11/18 08:00 Differential Comment Agrees w/ instrument 09/09/18 06:20 RBC Morphology Normal 09/09/18 06:20 Sodium 135 mmol/L (136-145) L 09/11/18 08:00 Potassium 4.1 mmol/L (3.5-5.1) 09/11/18 08:00 Chloride 103 mmol/L (98-107) 09/11/18 08:00 Carbon Dioxide 23.9 mmol/L (21.0-32.0) 09/11/18 08:00 Anion Gap 8.1 mmol/L (3-11) 09/11/18 08:00 BUN 41 mg/dL (7-18) H 09/11/18 08:00 Creatinine 1.58 mg/dL (0.55-1.02) H 09/11/18 08:00 Estimated GFR/1.73 m2 31.31 (mL/min/1.73m2) 09/11/18 08:00 Glucose 92 mg/dL (70-100) 09/11/18 08:00 Calcium 10.0 mg/dL (8.5-10.1) 09/11/18 08:00 Ionized Calcium 1.34 mmol/L (1.12-1.32) H 09/02/18 06:05 Magnesium 2.2 mg/dL (1.8-2.4) 09/11/18 08:00 Total Bilirubin 0.3 mg/dL (0.2-1.0) 09/03/18 06:40 Conjugated Bilirubin 0.08 mg/dL (0.00-0.20) 09/03/18 06:40 AST 32 U/L (15-37) 09/03/18 06:40 ALT 12 U/L (12-78) 09/03/18 06:40 Alkaline Phosphatase 101 U/L (46-116) 09/03/18 06:40 Lactate Dehydrogenase 251 U/L (81-234) H 09/08/18 06:25 Troponin I < 0.02 ng/mL (0.00-0.06) 09/01/18 09:00 NT-Pro-B Natriuret Pep 2537 pg/mL (-299) H 09/01/18 09:00 Total Protein 7.0 g/dL (6.4-8.2) 09/03/18 06:40 Albumin 2.1 g/dL (3.4-5.0) L 09/03/18 06:40 25-OH Vitamin D Total 35.4 ng/ml (30-100) 09/03/18 06:40 TSH 0.74 uIU/mL (0.358-3.74) 09/04/18 06:20 PTH Intact 74 pg/mL (19-88) 09/02/18 06:05 Cortisol 2 ug/dL 09/03/18 06:40
[2018-09-11] MEDS: levoFLOXacin 500 MG/100 ML BAG 100 MG IVPB (17:02)
[2018-09-11] MEDS: Apixaban 2.5 MG TAB PO (20:13)
[2018-09-12 04:05] VITALS: PULSE 62; RESP 17; TEMP 36.6
[2018-09-12 07:25] VITALS: O2SAT 94
[2018-09-12 07:45] VITALS: BP 189/94; PULSE 55; RESP 20; TEMP 36.3; O2SAT 94
[2018-09-12 07:47] LABS: Abs Immature Grans 0.15 k/cumm (0.0-0.09); Absolute Basophil Count 0.01 k/cumm (0.0-0.2); Absolute Eosinophil Count 0.07 k/cumm (0.0-0.7); Basophils % 0.1; Eosinophils % 0.5; HCT 38.1 % (36.0-46.0); HGB 12.1 g/dL (12.0-15.5); Immature Grans % 1.1; Lymphocytes % 9.6; Mean Corp. HGB Concentration 31.8 g/dL (32.0-36.0); Mean Corpuscular Hemoglobin 28.5 pg (27.0-33.0); Mean Corpuscular Volume 89.6 fL (80-95); Mean Platelet Volume 8.8 fL (8.0-11.0); Monocytes % 6.4; Neutrophils % 82.3; Platelet Count 438 x1000/uL (130-400); RBC 4.25 m/cumm (4.00-5.20); RBC Distribution Width 14.3 % (11.7-14.6); White Blood Cell Count 13.49 k/cumm (4.4-10.8)
[2018-09-12 07:51] LABS: Absolute Monocyte Count 0.86 k/cumm (0.11-0.7)
[2018-09-12 08:02] LABS: BUN 37 mg/dL (7-18); CREATININE 1.39 mg/dL (0.55-1.02); Calcium 9.9 mg/dL (8.5-10.1); Chloride 96 mmol/L (98-107); Glucose 87 mg/dL (70-100); Potassium 3.5 mmol/L (3.5-5.1); Sodium 131 mmol/L (136-145)
[2018-09-12] MEDS: Pantoprazole 40 MG TABCR PO (08:02)
[2018-09-12] MEDS: Docusate Sodium 100 MG CAP PO (08:03)
[2018-09-12] MEDS: Apixaban 2.5 MG TAB PO (08:03)
[2018-09-12] MEDS: Senna TAB 1 TAB PO (08:03)
[2018-09-12] MEDS: Metoprolol 25 MG TAB PO (08:04)
[2018-09-12] MEDS: predniSONE 20 MG TAB 60 MG PO (08:04)
[2018-09-12] MEDS: cloNIDine 0.1 MG TAB PO (08:04)
[2018-09-12] MEDS: hydrALAZINE 10 MG TAB PO (08:04)
[2018-09-12] MEDS: Furosemide 20 MG TAB PO (08:05)
[2018-09-12] MEDS: amLODIPine 5 MG TAB PO (08:05)
[2018-09-12 08:10] VITALS: PULSE 74
--- NOTE | 2018-09-12 08:10 | PT.INTREAT ---
Date of service: 09/12/18 Time of Service: 08:11 PT Notes Inpatient Physical Therapy Treatment Note [facility] Date: 09/11/18 Precautions: Fall. Standard. Subjective: Patient stated that she went to the bathroom 3 times since 12 midnight and has not fully slept well. She denies any pain. Did report of getting mildly dizzy when getting up. In the afternoon she stated that she tried walking inside room while managing her IV pole and did not feel any instability and dizziness. Objective: Patient seen today sitting on chair. IV in right UE for new dose of Lasix drip. Bilateral TEDS on. 91% on room air at rest while sitting down on chair. Mental Status: Alert and oriented x3 Pain: Patient reported no discomfort in bilateral legs that increases with walking. She states that her legs feel like her as they normally do. Bed Mobility/Transfers: Rolling L/R: I Supine-sit: I Sit-supine: I Sit-stand: S Stand-sit: S Bed-Chair: S Chair-bed: S Gait: For the morning session, patient was able to tolerate level surface ambulation for 30 feet x 5 without oxygen while holding onto the IV pole with 1 hand, no wheelchair follow needed, supervision assist only by PT with minimal cueing for pursed lip breathing and activity pacing. Oxygen saturation ranged between 84% to 94% on 2 L of oxygen, heart rate ranged from 62 bpm to 65 bpm. Blood pressure ranged from 122/66-150 4/69 with recovery of blood pressure of 130/60 5 mmHg. In the afternoon patient was also able to negotiate same distance 30 feet x5 while holding onto IV pole with oxygen saturation between 86-96% on 2 L, heart rate 45-57 bpm and blood pressure ranging from 119/70 mmHg to 136/80 mmHg with recovery of blood pressure of 124/80 6 mmHg. THERA EX: For the morning session, patient desaturated to 84% with stepping exercises but went back up to 89% after 4 minutes on room air. Plan of Care/Treatment Plan: 1-2x/day, 7 days/week x 1 week. Plan of care has been reviewed with the MOLDING MACHINE OPERATOR HELPER providing the service under Physical Therapy direction. Continue with physical Therapy intervention for strengthening, bed mobility, transfers, gait, stairs, balance training, use of assistive device. DISCHARGE RECOMMENDATIONS: Patient will highly benefit home health physical therapy in order to progress mobility level, maximize activity tolerance, evaluate home safety, and establish/implement functional maintenance program for exercises and fall reduction. TREATMENT CODE/TIME: 64187 25 minutes, and 7530 40 minutes beginning at 9:38 AM. [id number] 39 minutes beginning at 14:55 PM.
--- NOTE | 2018-09-12 08:24 | PDOC.CMDIS ---
LACE Index Scoring Tool - Questions: Length of Stay (in days): 7 - 13 Acuity (Admit via E.D.?): Yes Comorbidities: Congestive Heart Failure, Chronic Pulmonary Disease E.D. Visits: 2 - Answers: Total Score: 15 Risk of Readmission: High Risk Care Management Discharge Reason for Hospitalization: Pneumonia, CHF Discharge Plan: Antonia will return home when ready per MD. She will have an outpatient follow up plan including appointments; [facility] Pulmonology at 1200 on 09/15/18. She will transport home via private vehicle with her daughter when medically cleared for discharge. Patient/Family Education Needs: Review discharge instructions, discuss Ask Me Three. Services Needed at Discharge: Home Health Care Services (RN/PT)
--- NOTE | 2018-09-12 08:26 | PTTR_ITS ---
Date of service: 09/12/18 Time of Service: 08:11 PT Notes Inpatient Physical Therapy Treatment Note [facility] Date: 09/11/18 Precautions: Fall. Standard. Subjective: Patient stated that she went to the bathroom 3 times since 12 mi dnight and has not fully slept well. She denies any pain. Did report of getting mildly dizzy when getting up. In the afternoon she stated that she tried walking inside room while managing her IV pole and did not feel any instability and dizziness. Objective: Patient seen today sitting on chair. IV in right UE for new dose of Lasix drip. Bilateral TEDS on. 91% on room air at rest while sitting down on chair. Mental Status: Alert and oriented x3 Pain: Patient reported no discomfort in bilateral legs that increases with walking. She states that her legs feel like her as they normally do. Bed Mobility/Transfers: Rolling L/R: I Supine-sit: I Sit-supine: I Sit-stand: S Stand-sit: S Bed-Chair: S Chair-bed: S Gait: For the morning session, patient was able to tolerate level surface ambulation for 30 feet x 5 without oxygen while holding onto the IV pole with 1 hand, no wheelchair follow needed, supervision assist only by PT with minimal cueing for pursed lip breathing and activity pacing. Oxygen saturation ranged between 84% to 94% on 2 L of oxygen, heart rate ranged from 62 bpm to 65 bpm. Blood pressure ranged from 122/66-150 4/69 with recovery of blood pressure of 130/60 5 mmHg. In the afternoon patient was also able to negotiate same distance 30 feet x5 while holding onto IV pole with oxygen saturation between 86-96% on 2 L, heart rate 45-57 bpm and blood pressure ranging from 119/70 mmHg to 136/80 mmHg with recovery of blood pressure of 124/80 6 mmHg. THERA EX: For the morning session, patient desaturated to 84% with stepping exercises but went back up to 89% after 4 minutes on room air. Plan of Care/Treatment Plan: 1-2x/day, 7 days/week x 1 week. Plan of care has been reviewed with the PAN WASHER providing the service under Physical Therapy direction. Continue with physical Therapy intervention for strengthening, bed mobility, transfers, gait, stairs, balance training, use of assistive device. DISCHARGE RECOMMENDATIONS: Patient will highly benefit home health physical therapy in order to progress mobility level, maximize activity tolerance, evaluate home safety, and establish/implement functional maintenance program for exercises and fall reduction. TREATMENT CODE/TIME: 90403 25 minutes, and 7530 40 minutes beginning at 9:38 AM. [id number] 39 minutes beginning at 14:55 PM.
--- NOTE | 2018-09-12 08:35 | CMDISCH_ITS ---
LACE Index Scoring Tool - Questions: Length of Stay (in days): 7 - 13 Acuity (Admit via E.D.?): Yes Comorbidities: Congestive Heart Failure, Chronic Pulmonary Disease E.D. Visits: 2 - Answers: Total Score: 15 Risk of Readmission: High Risk Care Management Discharge Reason for Hospitalization: Pneumonia, CHF Discharge Plan: Antonia will return home when ready per MD. She will have an outpatient follow up plan including appointments; [facility] Pulmonology at 1200 on 09/15/18. She will transport home via private vehicle with her daughter when medically cleared for discharge. Patient/Family Education Needs: Review discharge instructions, discuss Ask Me Three. Services Needed at Discharge: Home Health Care Services (RN/PT)
[2018-09-12] MEDS: VANCOMYCIN 750 MG in Normal Saline 250 ML 166.667 MG IVPB (10:32)
[2018-09-12] MEDS: Normal Saline Flush 10 ML SYR IVP (10:32)
--- NOTE | 2018-09-12 11:58 | W.PM.DS.N ---
Date of service: 09/12/18 Time of Service: 11:58 DS: Diagnosis Discharge Diagnosis (1) Pneumonia: Status: Acute (2) ZAFAR (acute kidney injury): Status: Acute (3) Hypertension: Status: Chronic (4) PAF (paroxysmal atrial fibrillation): Status: Chronic (5) CHF (congestive heart failure): Status: Chronic (6) Advance directive on file: Status: Acute (7) Blisters of multiple sites: Status: Resolved Discharge Plan Disposition Patient Disposition: HOME W/HOME HEALTH SERVICE Condition: Improving Discharge Details Reason For Visit: PNEUMONIA Admit Date/Time: 09/01/18 11:46 Admit Provider: Erasmo Woods Attending Provider: Erasmo Woods Primary Care Provider: Fran Self Hospital Course Hospital Course: CC: Dyspnea HPI: 83-year-old woman with a prior history of asthma, CHF, and PAF, admitted from [facility] Emergency Department on 09/01/2018 with a diagnosis of pneumonia and ZAFAR. Mrs. Win has a past medical history significant for CHF with an LVEF of 45-50%, as well as mention of diastolic dysfunction by prior echo. She has a history of paroxysmal AFib currently in sinus rhythm, previously maintained on antiarrhythmic therapy with amiodarone, and on chronic anticoagulation. Her other history includes tachybrady syndrome s/p dual-chamber PPM placement in 2016, CKD, asthma, HTN, and PHTN. Review of her labs indicate a mild hypercalcemia in the past, unknown of the origin or prior work-up of this. The patient presented to the ED with reported shortness of breath, starting approximately 5 days prior to her admission. She also associated her dyspnea with a dry cough. Upon presentation to the ED she was found to be hypoxic, tachypneic, and tachycardic. Her EKG was found to be nonischemic, and her initial troponin was undetectable. Her work-up was remarkable for evidence of a right-sided infiltrate by chest x-ray, interpreted as likely pneumonia, as well as a mild leukocytosis and elevated creatinine from baseline. Her calcium was also noted to be high. She was referred for admission for further evaluation and treatment. Following admission Mrs. Win's condition failed to improve despite broadening of antibiotic coverage, but she did not worsen either. She was transferred to [facility] on 09/08 for a planned Bronchoscopy which unfortunately did not occur, and she was sent back to [facility] without intervention. She was initiated on steroid therapy and 3 days into the course finally reported subjective improvement, and was able to be weaned off oxygen therapy. She is scheduled to see Pulmonary at [facility] this coming Tuesday. No other events reported. Remains afebrile. Hospital Course: (1) Pneumonia: Initial diagnosis of pneumonia based on symptoms and imaging, failed to improve despite broad spectrum antibiotic therapy. CT of the chest with Diffuse b/l R>L Intrapulmonary Radiodensities thought likely infectious in etiology. Patient was sent for bronchoscopy that did not take place, and per review of records from [facility] appears that preference was to perform this procedure under anesthesia. Her B-Glucan level was checked at [facility] and still pending at time of discharge. Of note, patient also reports near continuous prednisone use as outpatient over the last 4-6 weeks. Mrs. Win concluded a 5 day course of antibiotic therapy with Vancomycin and Levofloxacin, as well as a week of Pip-Tazo. Patient's improvement however may be due to the addition of prednisone, initiated 4 days ago at 1mg/kg. Unfortunately at this point given extensive antibiotic and steroid use unsure of the utility of Bronchoscopy with BAL. Differential does include Legionella (serology still pending), Amiodarone Toxicity (Amio remains on hold), Eosinophilic Pneumonia (Although no evidence of eosinophilia by CBC), and atypical infection, or autoimmune. Doubt fungal or PJP, but still possible. Discussed case with Dr. Jasmyn Mustafa from [facility] - due to the significant findings on CT the patient is scheduled for follow-up in the pulmonary clinic in 3 days (appointment confirmed). Will discharge on 40mg daily prednisone. Patient will also need Home Health Services for [facility] to check on her condition after discharge, and ensure that she is taking medications appropriately. (2) ZAFAR (acute kidney injury): ZAFAR in setting of CKD, potentially prerenal in etiology in setting of acute illness and diuresis. No effect in breathing despite attempts at diuresis - lasix gtt was discontinued. Creatinine vastly improved and appears at baseline. (3) Hypertension: (4) PAF (paroxysmal atrial fibrillation): Previously maintained on antiarrhythmic therapy with amiodarone, on hold as above, as well as BB therapy. Restart anticoagulation as no plans for Bronchoscopy soon. Cardiology follow-up was scheduled for next week. Will ensure ZIO patch at discharge as well. (5) CHF (congestive heart failure): Evidence of both systolic and diastolic CHF by last echo in 2017, with an ejection fraction of 45-50%. Will continue furosemide at home dosing (QOD), and restart YOBANY-I that was held in setting of ZAFAR. Continue beta-eden as well. (6) Advance directive on file: Confirmed DNR/DNI. (7) Adrenal insufficiency: Presumed diagnosis based on Patient's complaint of hyperpigmentation, and low am cortisol. Will need outpatient follow-up with her insurance case manager. Stim test was not performed. (8) Blisters of multiple sites: Bullous Pemphigoid per derm records - patient apparently on multiple rounds of steroids for a month or more prior to her hospitalization and acute illness. (9) Hypercalcemia Ionized Calcium checked and minimally elevated only, with a normal PTH level (Checked 09/02/2018). Corrected Calcium was initially in the 12's, with calcium that improved. Needs further work-up following discharge, but given elevated serum calcium with corrected calcium (Low albumin) confirming high values, and PTH levels at the upper limits of normal, diagnosis of Hyperparathyroidism may be likely. (10) DVT prophylaxis: Low-dose apixaban restarted. Home Meds and New Rx's Prescriptions: New pantoprazole 40 mg Tablet,Delayed Release (Dr/Ec) 40 mg PO DAILY@0730 Qty: 30 RF: 0 prednisone 20 mg tablet 20 mg PO DAILY Qty: 60 RF: 0 Continued silver sulfadiazine [Thermazene] 50 GM cream 50 gm Topical DAILY RF: 0 clonidine HCl 0.1 MG tablet 0.1 mg PO BID RF: 0 potassium chloride [Klor-Con 10] 10 MEQ tablet extended release 10 meq PO DAILY RF: 0 lisinopril 40 MG tablet 40 mg PO DAILY RF: 0 Flovent HFA 12 GM HFA aerosol inhaler 110 mcg Inhalation Q4H PRNRF: 0 metoprolol tartrate 25 MG tablet 25 mg PO BID RF: 0 Eliquis 2.5 MG tablet 2.5 mg PO BID RF: 0 furosemide 20 mg tablet 20 mg PO Q OTHER DAY RF: 0 betamethasone dipropionate 0.05 % Cream 1 applic topical BID RF: 0 calcium carbonate [Calcium 600] 600 mg calcium (1,500 mg) Tablet 600 mg PO BID RF: 0 hydralazine 25 mg tablet 10 mg PO BID RF: 0 cholecalciferol (vitamin D3) [Vitamin D3] 2,000 unit Capsule 2,000 unit PO DAILY RF: 0 Breo Ellipta 100-25 mcg/dose Blister With Device 1 inh Inhalation DAILY RF: 0 ivermectin 3 mg Tablet 12 mg PO DIRECTED RF: 0 Discontinued Lamin-24 300 MG capsule,extended release 24hr 100 - 300 mg PO BID RF: 0 amiodarone 100 MG tablet 100 mg PO DAILY RF: 0 Discharge Instructions Stand Alone Forms: Nursing Discharge Form Referrals: Pulmonology ([facility]) [Other] - 09/15/18 11:15 am (Pulmonary Fuction Test is at 1130. Your appointment with the Lease Operator will be following the PFT's.) CARDIOLOGY,[facility] [OTHER] - 09/18/18 11:30 am Fran Self [Primary Care Provider] - 09/26/18 1:30 pm Activity:: No Strenuous Activity Equipment/Supplies:: No Equipment Needed Diet:: Low Sodium Discharge Orders Discharge Orders: Discharge Order (Routine); Ordered 09/12/18 Ordered By: Erasmo Woods Exam Narrative Exam Narrative: General: Patient appears comfortable, AAOX3, NAD Neck: Supple CV: Regular, nontachycardic, S1S2, 3/6 LLSB murmurs. Pulmonary: Area of decreased breath sounds with mild crackles and rhonchi at the right base continued but appears improved. No wheezing. Abdomen: + Bowel Sounds, soft, nontender, nondistended Vascular: Improved, 1+ b/l LE lower extremity edema Psych: Normal mood and affect. DS: Data Vitals/I&O Vitals and I&O: Vital Signs Temperature 36.3 C L 09/12/18 07:45 Temperature Source Tympanic 09/12/18 07:45 Pulse 74 09/12/18 08:10 Pulse Rhythm Regular 09/11/18 21:10 Pulse 70 09/02/18 10:40 Respiratory Rate 20 09/12/18 07:45 Respiratory Effort Non-Labored 09/11/18 21:10 Respiratory Depth Normal 09/11/18 21:10 Respiratory Pattern Normal 09/11/18 21:10 Blood Pressure 189/94 H 09/12/18 07:45 Blood Pressure Mean 68 09/02/18 10:40 Blood Pressure Position Sitting 09/01/18 16:02 Pulse Oximetry 94 L 09/12/18 07:45 Oxygen Delivery Method Room Air 09/12/18 07:45 Oxygen Flow Rate 0 09/12/18 07:45 Pain Level 0 09/12/18 07:45 Comment 09/11/18 08:50 Intake & Output 09/11/18 09/11/18 09/12/18 11:59 23:59 11:59 Intake Total 340 / 1370 1030 / 1370 590 / 590 Output Total 1850 / 1850 Balance -1510 / -480 1030 / -480 590 / 590 Weight 56.8 kg 55.2 kg Intake: IV 90 / 390 300 / 390 Oral 250 / 980 730 / 980 590 / 590 Output: Urine 1850 / 1850 Other: Urine Color Pale Yellow Urine Appearance Clear Clear Urine Odor None Stool Size Moderate Moderate Stool Characteristics Soft Brown Brown Voiding Methods Toilet Toilet Completed studies during hospitalization [Text1]: Exam(s) 09/01/2018 a RAD:XR chest 2V PA & lateral SYMPTOM/DIAGNOSIS: SOB PA AND LATERAL CHEST: The current examination is compared with most recent film of 10/09/17 and previous film of 03/05/16. Heart is enlarged. There is a transvenous cardiac pacemaker in position. There are sternal sutures and mediastinal vascular clips. In comparison with the previous examination, there appears to be increased radiodensity involving portions of the right lung with a patchy or fluffy appearance. The findings are suspicious for pneumonia. Asymmetric CHF not excluded. No gross pleural effusion is seen. CONCLUSION: Findings raising the possibility of right sided pneumonia. Exam(s) 09/03/2018 a RAD:XR chest 2V PA & lateral SYMPTOM/DIAGNOSIS: F/U PNEUMONIA PA AND LATERAL CHEST: Comparison is made with 09/01/18. There is stable mild cardiomegaly. The pacing wires are stable in position. There are bilateral pulmonary opacities, right greater than left, which appear stable compared to the prior examination. No gross effusions or pneumothoraces are identified. There is an S type scoliotic curvature of the thoracolumbar spine. Degenerative changes are seen in the spine. IMPRESSION: Stable bilateral pulmonary infiltrates. Exam(s) a US:US echocardiogram Date of study: 09/04/2018 Transthoracic Echocardiography M-mode, complete 2D, complete spectral Doppler, and color Doppler *STUDY CONCLUSIONS* Summary: 1. Left ventricle: The cavity size was normal. The estimated ejection fraction was 50%. Findings consistent with diastolic dysfunction. There was no evidence of elevated ventricular filling pressure by Doppler parameters. 2. Ventricular septum: Septal motion showed paradoxical motion. 3. Aortic valve: There was mild regurgitation. 4. Mitral valve: There was mild regurgitation. 5. Left atrium: The atrium was moderately dilated. 6. Right ventricle: The cavity size was normal. Wall thickness was normal. Pacer wire or catheter noted in right ventricle. Systolic function was normal. 7. Right atrium: The atrium was moderately dilated. 8. Atrial septum: No defect or patent foramen ovale was identified. 9. Tricuspid valve: There was moderate regurgitation. 10. Pulmonary arteries: Pulmonary systolic pressure was in the range of 45mm Hg to 55mm Hg. 11. Inferior vena cava: The vessel was patent and normal in size. The respirophasic diameter changes were in the normal range (greater than or equal to 50%), consistent with normal central venous pressure. Exam(s) 09/06/2018 a RAD:XR portable chest AP SYMPTOMS/DIAGNOSIS: F/U CHF/PNEUMONIA PORTABLE CHEST: Comparison 03/05/16 and 09/03/18. The heart size is stable. There is tortuosity of the thoracic aorta. The pacing wires are stable in position. Sternal wires are in place. There has been significant improvement in the aeration of the left lung with clearing of the infiltrates. There are persistent infiltrates seen in the right lung. No new infiltrates, effusions or pneumothoraces are identified. IMPRESSION: Overall improvement in appearance of the lung particularly on the left. Persistent right infiltrates are seen. Exam(s) 09/06/[address]:CT chest wo SYMPTOM/DIAGNOSIS: PERSISTENT RT SIDED INFILTRATE CHEST CT: CT examination of the chest was performed without contrast administration. Note is made of multiple sternal sutures. Ascending aorta is mildly/borderline ectatic at 38 mm. Main pulmonary artery mildly dilated at 32 mm. consistent with pulmonary arterial hypertension. Transvenous cardiac pacemaker noted in position. Images obtained through the upper abdomen show unremarkable appearance of visualized portions of the liver, spleen and kidneys. There is an enlarged pretracheal lymph node measuring up to about 22 mm. in diameter which is nonspecific. A few other prominent/mildly enlarged nodes are noted in various mediastinal locations, nonspecific finding which may be related to infectious process. There are diffuse bilateral lung radiodensities which can be characterized as primarily ground glass but with some interstitial components, right greater than left. The findings are nonspecific but may represent pneumonitis. The possibility of mild superimposed pulmonary edema not excluded. No gross pleural effusion is seen. CONCLUSION: Cardiomegaly, ectatic ascending aorta, aortic arch and main pulmonary artery. Diffuse bilateral, right greater than left, intrapulmonary radiodensities, differential diagnoses wide but probably the most likely cause is infectious process. Appropriate follow up studies requested. Exam(s) 09/07/2018 a RAD:XR portable chest AP SYMPTOMS/DIAGNOSIS: FOLLOW UP PNEUMONIA, +/- CHF PORTABLE AP CHEST 11:25 HOURS: In comparison with yesterday's examination, note is again made of cardiomegaly and bilateral intrapulmonary radiodensities right greater than left. There has been little if any interval change in comparison with yesterday's examination. CONCLUSION: No interval change in bilateral right greater than left intrapulmonary infiltrates. Labs on day of discharge: Labs from last 24 hours 09/12/18 09/12/18 07:10 07:10 WBC 13.49 H RBC 4.25 Hgb 12.1 Hct 38.1 MCV 89.6 MCH 28.5 MCHC 31.8 L RDW 14.3 Plt Count 438 H MPV 8.8 Immature Gran % 1.1 Neutrophils % 82.3 Lymphocytes % 9.6 Monocytes % 6.4 Eosinophils % 0.5 Basophils % 0.1 Absolute Neutrophils 11.10 H Absolute Lymphocytes 1.30 Absolute Monocytes 0.86 H Absolute Eosinophils 0.07 Absolute Basophils 0.01 Sodium 131 L Potassium 3.5 Chloride 96 L Carbon Dioxide 27.0 Anion Gap 8.0 BUN 37 H Creatinine 1.39 H Estimated GFR/1.73 m2 36.30 Glucose 87 Calcium 9.9 Magnesium 2.0 09/12/18 06:05 Sputum Sputum Culture - Pending 09/12/18 06:05 Sputum Gram Stain - Pending Preliminary micro results at discharge 09/12/18 06:05 Sputum Culture - Pending Sputum Gram Stain - Pending [facility] Medical History Hypercalcemia (Chronic) CHF (congestive heart failure) (Chronic) Presence of permanent cardiac pacemaker (Chronic) PAF (paroxysmal atrial fibrillation) (Chronic) Hypertension (Chronic) Pulmonary hypertension (Chronic) Asthma (Chronic) CKD (chronic kidney disease) (Chronic) Chronic kidney disease (Acute) Asthma (Chronic) Atrial fibrillation (Chronic) CHF (congestive heart failure) (Chronic) COPD (chronic obstructive pulmonary disease) (Chronic) Depression (Chronic) HTN (hypertension) (Chronic) Surgical History History of thoracic aortic aneurysm repair (Chronic) AICD (automatic cardioverter/defibrillator) present (Acute) H/O thoracic aortic aneurysm repair (Acute) Pacemaker (Acute) Social History Smoking/Tobacco Use Status: Never Alcohol Intake: never Substance use type: does not use Do you feel safe at home: Yes Do you feel safe in your relationship?: Yes
--- NOTE | 2018-09-12 12:13 | DSE_ITS ---
Date of service: 09/12/18 Time of Service: 11:58 DS: Diagnosis Discharge Diagnosis (1) Pneumonia: Status: Acute (2) ZAFAR (acute kidney injury): Status: Acute (3) Hypertension: Status: Chronic (4) PAF (paroxysmal atrial fibrillation): Status: Chronic (5) CHF (congestive heart failure): Status: Chronic (6) Advance directive on file: Status: Acute (7) Blisters of multiple sites: Status: Resolved Discharge Plan Disposition Patient Disposition: HOME W/HOME HEALTH SERVICE Condition: Improving Discharge Details Reason For Visit: PNEUMONIA Admit Date/Time: 09/01/18 11:46 Admit Provider: Earsmo Woods Attending Provider: Erasmo Woods Primary Care Provider: Fran Self Hospital Course Hospital Course: CC: Dyspnea HPI: 83-year-old woman with a prior history of asthma, CHF, and PAF, admitted from [facility] Emergency Department on 09/01/2018 with a diagnosis of pneumonia and ZAFAR. Mrs. Win has a past medical history significant for CHF with an LVEF of 45- 50%, as well as mention of diastolic dysfunction by prior echo. She has a history of paroxysmal AFib currently in sinus rhythm, previously maintained on antiarrhythmic therapy with amiodarone, and on chronic anticoagulation. Her other history includes tachybrady syndrome s/p dual-chamber PPM placement in 2016, CKD, asthma, HTN, and PHTN. Review of her labs indicate a mild hypercalcemia in the past, unknown of the origin or prior work-up of this. The patient presented to the ED with reported shortness of breath, starting approximately 5 days prior to her admission. She also associated her dyspnea with a dry cough. Upon presentation to the ED she was found to be hypoxic, tachypneic, and tachycardic. Her EKG was found to be nonischemic, and her initial troponin was undetectable. Her work-up was remarkable for evidence of a right-sided infiltrate by chest x-ray, interpreted as likely pneumonia, as well as a mild leukocytosis and elevated creatinine from baseline. Her calcium was also noted to be high. She was referred for admission for further evaluation and treatment. Following admission Mrs. Win's condition failed to improve despite broadening of antibiotic coverage, but she did not worsen either. She was transferred to [facility] on 09/08 for a planned Bronchoscopy which unfortunately did not occur, and she was sent back to [facility] without intervention. She was initiated on steroid therapy and 3 days into the course finally reported subjective improvement, and was able to be weaned off oxygen therapy. She is scheduled to see Pulmonary at [facility] this coming Tuesday. No other events reported. Remains afebrile. Hospital Course: (1) Pneumonia: Initial diagnosis of pneumonia based on symptoms and imaging, failed to improve despite broad spectrum antibiotic therapy. CT of the chest with Diffuse b/l R>L Intrapulmonary Radiodensities thought likely infectious in etiology. Patient was sent for bronchoscopy that did not take place, and per review of records from [facility] appears that preference was to perform this procedure under anesthesia. Her B-Glucan level was checked at [facility] and still pending at time of discharge. Of note, patient also reports near continuous prednisone use as outpatient over the last 4-6 weeks. Mrs. Win concluded a 5 day course of antibiotic therapy with Vancomycin and Levofloxacin, as well as a week of Pip-Tazo. Patient's improvement however may be due to the addition of prednisone, initiated 4 days ago at 1mg/kg. Unfortunately at this point given extensive antibiotic and steroid use unsure of the utility of Bronchoscopy with BAL. Differential does include Legionella (serology still pending), Amiodarone Toxicity (Amio remains on hold), Eosinophilic Pneumonia (Although no evidence of eosinophilia by CBC), and atypical infection, or autoimmune. Doubt fungal or PJP, but still possible. Discussed case with Dr. Jasmyn Mustafa from [facility] - due to the significant findings on CT the patient is scheduled for follow-up in the pulmonary clinic in 3 days (appointment confirmed). Will discharge on 40mg daily prednisone. Patient will also need Home Health Services for [facility] to check on her condition after discharge, and ensure that she is taking medications appropriately. (2) ZAFAR (acute kidney injury): ZAFAR in setting of CKD, potentially prerenal in etiology in setting of acute illness and diuresis. No effect in breathing despite attempts at diuresis - lasix gtt was discontinued. Creatinine vastly improved and appears at baseline. (3) Hypertension: (4) PAF (paroxysmal atrial fibrillation): Previously maintained on antiarrhythmic therapy with amiodarone, on hold as above, as well as BB therapy. Restart anticoagulation as no plans for Bronchosc opy soon. Cardiology follow-up was scheduled for next week. Will ensure ZIO patch at discharge as well. (5) CHF (congestive heart failure): Evidence of both systolic and diastolic CHF by last echo in 2017, with an ejection fraction of 45-50%. Will continue furosemide at home dosing (QOD), and restart YOBANY-I that was held in setting of ZAFAR. Continue beta-eden as well. (6) Advance directive on file: Confirmed DNR/DNI. (7) Adrenal insufficiency: Presumed diagnosis based on Patient's complaint of hyperpigmentation, and low am cortisol. 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 Stim test was not performed. (8) Blisters of multiple sites: Bullous Pemphigoid per derm records - patient apparently on multiple rounds of steroids for a month or more prior to her hospitalization and acute illness. (9) Hypercalcemia Ionized Calcium checked and minimally elevated only, with a normal PTH level (Checked 09/02/2018). Corrected Calcium was initially in the 12's, with calcium that improved. Needs further work-up following discharge, but given elevated serum calcium with corrected calcium (Low albumin) confirming high values, and PTH levels at the upper limits of normal, diagnosis of Hyperparathyroidism may be likely. (10) DVT prophylaxis: Low-dose apixaban restarted. Home Meds and New Rx's Prescriptions: New pantoprazole 40 mg Tablet,Delayed Release (Dr/Ec) 40 mg PO DAILY@0730 Qty: 30 RF: 0 prednisone 20 mg tablet 20 mg PO DAILY Qty: 60 RF: 0 Continued silver sulfadiazine [Thermazene] 50 GM cream 50 gm Topical DAILY RF: 0 clonidine HCl 0.1 MG tablet 0.1 mg PO BID RF: 0 potassium chloride [Klor-Con 10] 10 MEQ tablet extended release 10 meq PO DAILY RF: 0 lisinopril 40 MG tablet 40 mg PO DAILY RF: 0 Flovent HFA 12 GM HFA aerosol inhaler 110 mcg Inhalation Q4H PRNRF: 0 metoprolol tartrate 25 MG tablet 25 mg PO BID RF: 0 Eliquis 2.5 MG tablet 2.5 mg PO BID RF: 0 furosemide 20 mg tablet 20 mg PO Q OTHER DAY RF: 0 betamethasone dipropionate 0.05 % Cream 1 applic topical BID RF: 0 calcium carbonate [Calcium 600] 600 mg calcium (1,500 mg) Tablet 600 mg PO BID RF: 0 hydralazine 25 mg tablet 10 mg PO BID RF: 0 cholecalciferol (vitamin D3) [Vitamin D3] 2,000 unit Capsule 2,000 unit PO DAILY RF: 0 Breo Ellipta 100-25 mcg/dose Blister With Device 1 inh Inhalation DAILY RF: 0 ivermectin 3 mg Tablet 12 mg PO DIRECTED RF: 0 Discontinued Lamin-24 300 MG capsule,extended release 24hr 100 - 300 mg PO BID RF: 0 amiodarone 100 MG tablet 100 mg PO DAILY RF: 0 Discharge Instructions Stand Alone Forms: Nursing Discharge Form Referrals: Pulmonology ([facility]) [Other] - 09/15/18 11:15 am (Pulmonary Fuction Test is at 1130. Your appointment with the [employer] will be following the PFT's.) CARDIOLOGY,[facility] [OTHER] - 09/18/18 11:30 am Fran Self [Primary Care Provider] - 09/26/18 1:30 pm Activity:: No Strenuous Activity Equipment/Supplies:: No Equipment Needed Diet:: Low Sodium Discharge Orders Discharge Orders: Discharge Order (Routine); Ordered 09/12/18 Ordered By: Erasmo Woods Exam Narrative Exam Narrative: General: Patient appears comfortable, AAOX3, NAD Neck: Supple CV: Regular, nontachycardic, S1S2, 3/6 LLSB murmurs. Pulmonary: Area of decreased breath sounds with mild crackles and rhonchi at the right base continued but appears improved. No wheezing. Abdomen: + Bowel Sounds, soft, nontender, nondistended Vascular: Improved, 1+ b/l LE lower extremity edema Psych: Normal mood and affect. DS: Data Vitals/I&O Vitals and I&O: Vital Signs Temperature 36.3 C L 09/12/18 07:45 Temperature Source Tympanic 09/12/18 07:45 Pulse 74 09/12/18 08:10 Pulse Rhythm Regular 09/11/18 21:10 Pulse 70 09/02/18 10:40 Respiratory Rate 20 09/12/18 07:45 Respiratory Effort Non-Labored 09/11/18 21:10 Respiratory Depth Normal 09/11/18 21:10 Respiratory Pattern Normal 09/11/18 21:10 Blood Pressure 189/94 H 09/12/18 07:45 Blood Pressure Mean 68 04/06/19 10:40 Blood Pressure Position Sitting 09/01/18 16:02 Pulse Oximetry 94 L 09/12/18 07:45 Oxygen Delivery Method Room Air 09/12/18 07:45 Oxygen Flow Rate 0 09/12/18 07:45 Pain Level 0 09/12/18 07:45 Comment 09/11/18 08:50 Intake & Output 09/11/18 09/11/18 09/12/18 11:59 23:59 11:59 Intake Total 340 / 1370 1030 / 1370 590 / 590 Output Total 1850 / 1850 Balance -1510 / -480 1030 / -480 590 / 590 Weight 56.8 kg 55.2 kg Intake: IV 90 / 390 300 / 390 Oral 250 / 980 730 / 980 590 / 590 Output: Urine 1850 / 1850 Other: Urine Color Pale Yellow Urine Appearance Clear Clear Urine Odor None Stool Size Moderate Moderate Stool Characteristics Soft Brown Brown Voiding Methods Toilet Toilet Completed studies during hospitalization [Text1]: Exam(s) 09/01/2018 a RAD:XR chest 2V PA & lateral SYMPTOM/DIAGNOSIS: SOB PA AND LATERAL CHEST: The current examination is compared with most recent film of 10/09/17 and previous film of 03/05/16. Heart is enlarged. There is a transvenous cardiac pacemaker in position. There are sternal sutures and mediastinal vascular clips. In comparison with the previous examination, there appears to be increased radiodensity involving portions of the right lung with a patchy or fluffy appearance. The findings are suspicious for pneumonia. Asymmetric CHF not excluded. No gross pleural effusion is seen. CONCLUSION: Findings raising the possibility of right sided pneumonia. Exam(s) 09/03/2018 a RAD:XR chest 2V PA & lateral SYMPTOM/DIAGNOSIS: F/U PNEUMONIA PA AND LATERAL CHEST: Comparison is made with 09/01/18. There is stable mild cardiomegaly. The pacing wires are stable in position. There are bilateral pulmonary opacities, right greater than left, which appear stable compared to the prior examination. No gross effusions or pneumothoraces are identified. There is an S type scoliotic curvature of the thoracolumbar spine. Degenerative changes are seen in the spine. IMPRESSION: Stable bilateral pulmonary infiltrates. Exam(s) a US:US echocardiogram Date of study: 09/04/2018 Transthoracic Echocardiography M-mode, complete 2D, complete spectral Doppler, and color Doppler *STUDY CONCLUSIONS* Summary: 1. Left ventricle: The cavity size was normal. The estimated ejection fraction was 50%. Findings consistent with diastolic dysfunction. There was no evidence of elevated ventricular filling pressure by Doppler parameters. 2. Ventricular septum: Septal motion showed paradoxical motion. 3. Aortic valve: There was mild regurgitation. 4. Mitral valve: There was mild regurgitation. 5. Left atrium: The atrium was moderately dilated. 6. Right ventricle: The cavity size was normal. Wall thickness was normal. Pacer wire or catheter noted in right ventricle. Systolic function was normal. 7. Right atrium: The atrium was moderately dilated. 8. Atrial septum: No defect or patent foramen ovale was identified. 9. Tricuspid valve: There was moderate regurgitation. 10. Pulmonary arteries: Pulmonary systolic pressure was in the range of 45mm Hg to 55mm Hg. 11. Inferior vena cava: The vessel was patent and normal in size. The respirophasic diameter changes were in the normal range (greater than or equal to 50%), consistent with normal central venous pressure. Exam(s) 09/06/2018 a RAD:XR portable chest AP SYMPTOMS/DIAGNOSIS: F/U CHF/PNEUMONIA PORTABLE CHEST: Comparison 03/05/16 and 09/03/18. The heart size is stable. There is tortuosity of the thoracic aorta. The pacing wires are stable in position. Sternal wires are in place. There has been significant improvement in the aeration of the left lung with clearing of the infiltrates. There are persistent infiltrates seen in the right lung. No new infiltrates, effusions or pneumothoraces are identified. IMPRESSION: Overall improvement in appearance of the lung particularly on the left. Persistent right infiltrates are seen. Exam(s) 09/06/[address]:CT chest wo SYMPTOM/DIAGNOSIS: PERSISTENT RT SIDED INFILTRATE CHEST CT: CT examination of the chest was performed without contrast administration. Note is made of multiple sternal sutures. Ascending aorta is mildly/borderline ectatic at 38 mm. Main pulmonary artery mildly dilated at 32 mm. consistent with pulmonary arterial hypertension. Transvenous cardiac pacemaker noted in position. Images obtained through the upper abdomen show unremarkable appearance of visualized portions of the liver, spleen and kidneys. There is an enlarged pretracheal lymph node measuring up to about 22 mm. in diameter which is nonspecific. A few other prominent/mildly enlarged nodes are noted in various mediastinal locations, nonspecific finding which may be related to infectious process. There are diffuse bilateral lung radiodensities which can be characterized as primarily ground glass but with some interstitial components, right greater than left. The findings are nonspecific but may represent pneumonitis. The possibility of mild superimposed pulmonary edema not excluded. No gross pleural effusion is seen. CONCLUSION: Cardiomegaly, ectatic ascending aorta, aortic arch and main pulmonary artery. Diffuse bilateral, right greater than left, intrapulmonary radiodensities, differential diagnoses wide but probably the most likely cause is infectious process. Appropriate follow up studies requested. Exam(s) 09/07/2018 a RAD:XR portable chest AP SYMPTOMS/DIAGNOSIS: FOLLOW UP PNEUMONIA, +/- CHF PORTABLE AP CHEST 11:25 HOURS: In comparison with yesterday's examination, note is again made of cardiomegaly and bilateral intrapulmonary radiodensities right greater than left. There has been little if any interval change in comparison with yesterday's examination. CONCLUSION: No interval change in bilateral right greater than left intrapulmonary infiltrates. Labs on day of discharge: Labs from last 24 hours 09/12/18 09/12/18 07:10 07:10 WBC 13.49 H RBC 4.25 Hgb 12.1 Hct 38.1 MCV 89.6 MCH 28.5 MCHC 31.8 L RDW 14.3 Plt Count 438 H MPV 8.8 Immature Gran % 1.1 Neutrophils % 82.3 Lymphocytes % 9.6 Monocytes % 6.4 Eosinophils % 0.5 Basophils % 0.1 Absolute Neutrophils 11.10 H Absolute Lymphocytes 1.30 Absolute Monocytes 0.86 H Absolute Eosinophils 0.07 Absolute Basophils 0.01 Sodium 131 L Potassium 3.5 Chloride 96 L Carbon Dioxide 27.0 Anion Gap 8.0 BUN 37 H Creatinine 1.39 H Estimated GFR/1.73 m2 36.30 Glucose 87 Calcium 9.9 Magnesium 2.0 09/12/18 06:05 Sputum Sputum Culture - Pending 09/12/18 06:05 Sputum Gram Stain - Pending Preliminary micro results at discharge 09/12/18 06:05 Sputum Culture - Pending Sputum Gram Stain - Pending [facility] Medical History Hypercalcemia (Chronic) CHF (congestive heart failure) (Chronic) Presence of permanent cardiac pacemaker (Chronic) PAF (paroxysmal atrial fibrillation) (Chronic) Hypertension (Chronic) Pulmonary hypertension (Chronic) Asthma (Chronic) CKD (chronic kidney disease) (Chronic) Chronic kidney disease (Acute) Asthma (Chronic) Atrial fibrillation (Chronic) CHF (congestive heart failure) (Chronic) COPD (chronic obstructive pulmonary disease) (Chronic) Depression (Chronic) HTN (hypertension) (Chronic) Surgical History History of thoracic aortic aneurysm repair (Chronic) AICD (automatic cardioverter/defibrillator) present (Acute) H/O thoracic aortic aneurysm repair (Acute) Pacemaker (Acute) Social History Smoking/Tobacco Use Status: Never Alcohol Intake: never Substance use type: does not use Do you feel safe at home: Yes Do you feel safe in your relationship?: Yes
--- NOTE | 2018-09-12 12:55 | PDOC.HHF2F ---
1. Encounter Date and Reason I certify that SHENA CUI was seen by Erasmo Woods on 09/12/18 and that I had a [id number] encounter with this patient that meets the physician face to face encounter requirements. 2. Clinical Findings Supporting Skilled Need and Homebound Status I certify that home health services are medically necessary, include either intermittent mcfp and/or physical/speech therapy, and that this patient is homebound in that absences from the home require considerable and taxing effort and are infrequent or of short duration, or are attributable to the need to receive medical care. [X] (a) Attached documentation from encounter provides clinical findings supporting skilled need and homebound status (including what assistance patient requires to leave the home). The encounter with the patient was in whole, or in part, for the following medical condition, which is the primary reason for home health care: PNEUMONIA Custodial: Med Check. Vitals including pulse ox. Clinical Evaluation to ensure patient is improving from a respiratory standpoint. Physical Therapy: Deconditioning following lengthy hospitalization. Speech Therapy: Homebound: 3. Certification and Authentication I certify that I composed the above information based on my clinical judgement relating to this patient's medical condition and, if applicable, clinical findings communicated to me by the NPP or inpatient physician who performed the Home Health Referral. All further orders will be obtained through (Community Based Physician - PCP)
--- NOTE | 2018-09-13 09:44 | PT.INDS ---
Date of service: 09/13/18 Time of Service: 11:05 PT Notes Inpatient Physical Therapy Discharge Summary Dates: 09/12/2018 Dates of Service: 09/02/18 through 09/12/18 Precautions: Fall. Standard. Patient Profile/Admitting Diagnosis: Orders received for this 83-year-old female with a history of asthma however she was becoming more short of breath at home for the last 5 days. She has been admitted with community-acquired pneumonia and has been on oxygen supplementation and antibiotic treatment. PMHX: Medical History Hypercalcemia (Chronic) CHF (congestive heart failure) (Chronic) Presence of permanent cardiac pacemaker (Chronic) PAF (paroxysmal atrial fibrillation) (Chronic) Hypertension (Chronic) Pulmonary hypertension (Chronic) Asthma (Chronic) CKD (chronic kidney disease) (Chronic) Chronic kidney disease (Acute) Asthma (Chronic) Atrial fibrillation (Chronic) CHF (congestive heart failure) (Chronic) COPD (chronic obstructive pulmonary disease) (Chronic) Depression (Chronic) HTN (hypertension) (Chronic) Surgical History History of thoracic aortic aneurysm repair (Chronic) AICD (automatic cardioverter/defibrillator) present (Acute) H/O thoracic aortic aneurysm repair (Acute) Pacemaker (Acute) Social History/Home Situation: Patient lives with her daughter in [place] she has 2 steps in which to enter the home Equipment Owned/DME: Patient is independent in ambulation at baseline Subjective: Patient is looking forward to going home finally with the family to daughter's house. She states that she agreed to pursuing the appointment for but because the [facility] on Tuesday at 1:00 PM. Objective: Bilateral TEDS on. No lines. Mental Status: Alert and oriented x3 Pain: 0/10. Bed Mobility/Transfers: Rolling L/R: I Supine-sit: I Sit-supine: I Sit-stand: I Stand-sit: I Bed-Chair: I Chair-bed: I ROM: Right Upper Extremity: Within functional limits Left Upper Extremity: Within functional limits Right Lower Extremity: Within functional limits Left Lower Extremity: Within functional limits Strength: Right Upper Extremity: Globally 4+ out of 5 Left Upper Extremity: Globally 4+ out of 5 Right Lower Extremity: Globally 4+ out of 5 Left Lower Extremity: Globally 4+ out of 5 Gait: Patient now able to tolerate 30 feet x 5 of in-room ambulation with desaturation episodes to 84% twice right back to 89% with pursed lip breathing. No AD needed. No report of dizziness nor increase calf pain to both sides received. THERA Patient was able to tolerate intermediate to advanced level balance exercises in standing working on sit to stand activities from edge of bed x10 with arms across chest, partial knee bends x10 with arms still across chest, and alternate one legged stance x10 with arms across chest. Oxygen saturation ranged from 87% to 94% on 2 L of oxygen per minute. Special Tests: Mobility Limitations Standardized Measure [facility]-PAC 6 clicks Basic Mobility Inpatient Short Form: Raw Score: 22 CMS Score: 21% deficit ASSESSMENT: Patient is a 83 year old female referred to physical therapy services with the diagnosis of pneumonia. Patient continues to present with clinical signs and symptoms consistent with current/admitting diagnoses that have resulted to mobility limitations, gait instability, generalized weakness, and impairment of motor control as demonstrated by the following impairment level findings: 1. Decreased strength to B LE major muscle groups 2. Impaired balance 3. Impaired activity tolerance Impairments are contributing to the following functional limitations: 1. Increased dependence with transfers 2. Inability to safely ambulate without assistance 3. Increase completion time for mobility ADL performance 4. Increased fall risk 5. Inability to negotiate steps alone safely Goals X1 week 1. Supine-Sit independent and restored to baseline level --MET 2. Sit-Supine independent and restored to baseline level --MET 3. Sit-Stand independent and restored to baseline level --MET 4. Stand-Sit independent and restored to baseline level --MET 5. Bed-Chair independent and restored to baseline level --MET 6. Gait independent up to 300 feet and restored to baseline level --NOT MET 7: Stairs up to 2 steps --NOT MET DISCHARGE RECOMMENDATIONS: Patient will highly benefit home health physical therapy in order to progress mobility level, maximize activity tolerance, evaluate home safety, and establish/implement functional maintenance program for exercises and fall reduction. TREATMENT CODE/TIME: [id number] 26 minutes beginning at 11:05 PM. Thank you for this referral. Suma Torres, PT, DPT, CLT [facility]
--- NOTE | 2018-10-03 10:17 | ZIOP_ITS ---
MONITOR IN PLACE: 13 days, 20 hours, September 12-2018 Baseline rhythm paced rhythm. Rare single PAC. Four bursts of SVT, longest 10-beat duration, fastest 171 bpm. No atrial fibrillat ion. Rare single PVC. Rare triplet. No VT. No bradycardia or block. No triggered events. One symptomatic entry: skipped, irregular beats noted during sinus rhythm 63 bpm. Average heart rate 59 bpm, range 67-111 bpm.
== END 2018-09-12 13:35 | disposition home health service (06) | DRG 194 ==
LOC: ER 12:16 → ICU 13:05 → MS 09-02 12:12
PROVIDERS: Admitting Provider Internal Medicine; Emergency Provider Physician Assistant; PCP Specialist/Technologist Athletic Trainer; Visit Provider Internal Medicine
DX: J18.9 Pneumonia, unspecified organism (principal); N17.9 Acute kidney failure, unspecified; E27.40 Unspecified adrenocortical insufficiency; L12.0 Bullous pemphigoid; I13.0 Hypertensive heart and chronic kidney disease with heart failure and stage 1 through stage 4 chronic kidney disease, or unspecified chronic kidney disease; I50.42 Chronic combined systolic (congestive) and diastolic (congestive) heart failure; K62.5 Hemorrhage of anus and rectum; R09.02 Hypoxemia; E83.52 Hypercalcemia; T46.2X1A Poisoning by other antidysrhythmic drugs, accidental (unintentional), initial encounter; N18.9 Chronic kidney disease, unspecified; I48.0 Paroxysmal atrial fibrillation; K59.00 Constipation, unspecified; E87.70 Fluid overload, unspecified; I49.5 Sick sinus syndrome; I27.20 Pulmonary hypertension, unspecified; Z51.5 Encounter for palliative care; Z79.01 Long term (current) use of anticoagulants; Z79.52 Long term (current) use of systemic steroids; Z95.810 Presence of automatic (implantable) cardiac defibrillator
CPT/HCPCS: 0296T; 36415; 71250; 80048; 80053; 80076; 82306; 82533; 85027; 87449; 92610; 93005; 93306; 94618; 94640; 96365; 96367; 96368; 97110; 97162; 97165; 97530; 97535; 99222; 99231; 99232; 99233; 99239; 99253; 99285; 71045; 71046; 82330; 83615; 83735; 83880; 83970; 84443; 84484; 85025; 87070; 87205; 93010; 94664; A0425; A0426; A0428; J0456; J0696; J1644; J1720; J1940; J1941; J1956; J2543; J2930; J7512; J7613; J7620

== ENCOUNTER 2018-09-18 08:06 | Outpatient (CLI) | payer MEDICARE, SELFPAY | END 2018-09-18 08:26 | PROVIDERS: PCP Specialist/Technologist Athletic Trainer; Visit Provider Internal Medicine Interventional Cardiology | DX: R07.89 Other chest pain (principal); Z95.1 Presence of aortocoronary bypass graft; Z95.0 Presence of cardiac pacemaker; I48.91 Unspecified atrial fibrillation; I13.0 Hypertensive heart and chronic kidney disease with heart failure and stage 1 through stage 4 chronic kidney disease, or unspecified chronic kidney disease; I50.9 Heart failure, unspecified; I42.9 Cardiomyopathy, unspecified; N18.3 Chronic kidney disease, stage 3 (moderate) | CPT/HCPCS: 99214; 93005; 93010 ==

== ENCOUNTER 2018-09-25 00:19 | Outpatient (CLI) | payer MEDICARE, SELFPAY ==
--- NOTE | 2018-09-25 08:45 | MERGEMPI_ITS ---
*[facility]* *[facility]* [address] [place] [address] Myocardial Perfusion Imaging - SPECT Regadenoson Date of study: 09/25/2018 (Report amended ) *PATIENT PRESENTATION* Height: 149.9cm (59in) Blood Pressure: Weight: 55kg (121lb) BSA: 1.53m^2 Referring physician: Luis Alfredo Kumar Ordering physician: Matthieu Roche MD Impressions: Normal myocardial perfusion and contraction after maximal exercise. Summary: 1. Myocardial perfusion imaging: No myocardial perfusion defects noted. 2. The calculated left ventricular ejection fraction after stress: 68%. LV global systolic function is normal. 3. Stress ECG conclusions: The stress ECG is negative. 4. Baseline ECG: Normal ECG. Indication: I48.91. History: PMH: COPD. Asthma. Risk factors: Hypertension. ALLERGIES: ADHESIVE . GLUTEN PORK DERIVED. COUMDADIN. DAIRY. EGGS. FLU VACCINE. TAPE. MEDICATIONS: POTASSIUM CHLORIDE 10 MEQ DAILY. PANTOPRAZOLE 40 MG DAILY. METOPROLOL TARTRATE 25 MG BID. LOSARTAN 25 MG BID. ISOSORBIDE MONONITRATE ER 30 MG DAILY. HYDRALAZINE 10 MG BID FUROSEMIDE 20 MG QOD. CLONIDINE HCL 0.1 MG BID. CHOLECALCIFEROL 2,000 UNITES DAILY. CALCIUM CARBONATE 600 MG BID. BETAMETHASONE DIPROPIONATE 1 APPLICATION TOPICAL BID. ELIQUIS 2.5 MG BID. BREO ELLIPTA 1 INH DAILY. Imaging Technique: Protocol: Regadenoson. Acquisition: Gated SPECT; 1 day - rest/stress. The patient was imaged in the supine position. Attenuation correction used. Isotope administration: - Rest. Tc[99m]-sestamibi. Dose: 10.3mCi. Injection time: 08:50 AM. Injection to stress time: 00:45. - Stress. Tc[99m]-sestamibi. Dose: 31.8mCi. Injection time: 10:40 AM. 1-2 min before end of exercise Baseline ECG: SINUS RHYTHM. HR 72 BPM. Normal ECG. Stress protocol: +--------+--+ + + !Stage !HR!BP (mmHg) !Comments ! +--------+--+ + + !Baseline!72!150/66 (94) ! ! +--------+--+ + + !1 min !69!160/80 (107)!Inject Regadenoson.! +--------+--+ + + !3 min !69!170/66 (101)! ! +--------+--+ + + !6 min !72!170/68 (102)! ! +--------+--+ + + !9 min !68!164/62 (96) ! ! +--------+--+ + + * Stress results: The rate-pressure product for the peak heart rate and blood pressure was 71222zs Hg/min. Stress ECG: STRESS TEST ENDED IN 9 MINUTES AND 49 SECONDS. PT EXPERIENCED NO SIGNIFICANT SIDE EFFECTS FROM LEXISCAN INJECTION. NORMAL HEART RATE AND BLOOD PRESSURE RESPONSE TO EXERCISE OCCASIONAL PVCs. VENTRICULAR COUPLETS SEEN X2. 3 BEAT VENTRICULAR RUN SEEN X1. NO ANGINA NO SIGNIFICANT ST SEGMENT CHANGES The stress ECG is negative. Myocardial perfusion: Imaging information: gated. The image quality was good. Left ventricular size is normal. No myocardial perfusion defects noted. Ventricular Function (Wall Motion): The calculated left ventricular ejection fraction after stress: 68%. LV global systolic function is normal. Study data: Luis Alfredo Kumar MD supervised and was readily available during the procedure. This study was interpreted by [facility]. Study status: Routine. Consent: The risks, benefits, and alternatives to the procedure were explained to the patient and informed consent was obtained. Procedure: Initial setup. A baseline ECG was recorded. Surface ECG leads and manual cuff blood pressure measurements were monitored. Heart sounds: Murmur. Lung sounds: Normal. Regadenoson stress test. Stress testing was performed, with regadenoson by intravenous bolus, for a total dose of 0.4mgover 10.00sec, followed by a 5ml saline flush. The infusion was terminated due to per protocol. Study completion: All catheters inserted during the procedure were removed. The patient tolerated the procedure well and was discharged from the lab. Discharge: The patient left the laboratory in stable condition. Birthdate: Patient birthdate: 1935. Sex: Gender: female. Study date: Study date: 09/25/2018. Study time: 00:01 AM. Signature Documentation: - The imaging portion of this study was interpreted by Nuclear Residential Service Technician Luis Alfredo Kumar MD. - The imaging portion of this study was interpreted by Nuclear Radiologist Memo Morris MD. - The Stress ECG portion of this study was interpreted by Luis Alfredo Kumar MD. Electronically signed by Luis Alfredo Kumar 09/25/2018 13:22
[2018-09-25] MEDS: Regadenoson 0.4 MG/5 ML SYR IVP (10:25)
== END 2018-09-25 00:39 ==
PROVIDERS: PCP Specialist/Technologist Athletic Trainer; Visit Provider Internal Medicine Interventional Cardiology
DX: I48.91 Unspecified atrial fibrillation (principal); I50.9 Heart failure, unspecified; I10 Essential (primary) hypertension; J44.9 Chronic obstructive pulmonary disease, unspecified
CPT/HCPCS: 78452; 93016; 93018; 93017; J2785

== ENCOUNTER 2018-09-26 22:00 | Outpatient (REF) | payer MEDICARE, SELFPAY | END 2018-09-26 22:20 | LOC: NCHCN 22:00 | PROVIDERS: PCP Specialist/Technologist Athletic Trainer; Visit Provider Nurse Practitioner Family | DX: R30.0 Dysuria (principal) | CPT/HCPCS: 87086 ==

== ENCOUNTER 2018-10-02 19:17 | Outpatient (CLI) | payer MEDICARE, SELFPAY | END 2018-10-02 19:37 | PROVIDERS: PCP Specialist/Technologist Athletic Trainer; Referring Provider Specialist/Technologist Athletic Trainer; Visit Provider Internal Medicine Interventional Cardiology | DX: I48.0 Paroxysmal atrial fibrillation (principal); I49.1 Atrial premature depolarization; I47.1 Supraventricular tachycardia | CPT/HCPCS: 0298T ==

== ENCOUNTER 2018-10-05 01:02 | Outpatient (CLI) | payer MEDICARE, SELFPAY ==
--- NOTE | 2018-10-05 10:45 | MERGE_ITS ---
*[facility]* *[facility]* [address] [place] [address] Date of study: 10/05/2018 Transthoracic Echocardiography M-mode, complete 2D, complete spectral Doppler, and color Doppler *STUDY CONCLUSIONS* Impressions: No change to the last echo 4 weeks ago. Summary: 1. Left ventricle: The cavity size was normal. Wall thickness was increased in a pattern of mild LVH. Systolic function was at the lower limits of normal. The estimated ejection fraction was 50-55%. Wall motion was normal; there were no regional wall motion abnormalities. 2. Ventricular septum: Septal motion showed paradoxical motion. 3. Aortic valve: Mild calcification. There was mild regurgitation. 4. Mitral valve: Mildly calcified annulus. There was mild regurgitation. 5. Left atrium: The atrium was moderately dilated. 6. Right ventricle: The cavity size was normal. Wall thickness was normal. Pacer wire or catheter noted in right ventricle. Systolic function was normal. 7. Right atrium: The atrium was moderately dilated. 8. Tricuspid valve: There was moderate regurgitation. *PATIENT PRESENTATION* Height: 149.9cm ((59in) ) S/D Pressure: 135 / 73 Weight: 48.1kg ((105.8lb) ) BSA: 1.42m^2 Test start time: 11:00 AM. Test stop time: 12:00 PM. ORDERING Matthieu Roche MD REFERRING Matthieu Roche MD PERFORMING Unknown PERFORMING [facility] CONSULTING Fran Self [employer] RT Thomas (R)(CT), MARGARITA *PROCEDURE DATA* Procedure information: The patient was identified by two identifiers. This study was interpreted by [facility]. Pertinent images and digital data are archived for permanent storage and are available for subsequent review. Comparison was made to the study of 09/15/2018. Study status: Routine. Transthoracic echocardiography. M-mode, complete 2D, complete spectral Doppler, and color Doppler. A Transthoracic Echocardiogram was performed. Scanning was performed from the parasternal, apical, subcostal, and suprasternal notch acoustic windows. Images were obtained using an [id number] cardiac ultrasound machine. Study completion: The patient tolerated the procedure well. History: PMH: Afib CHF HF. I 48.91, i50.9. *CARDIAC ANATOMY* Left ventricle: The cavity size was normal. Wall thickness was increased in a pattern of mild LVH. Systolic function was at the lower limits of normal. The estimated ejection fraction was 50-55%. Wall motion was normal; there were no regional wall motion abnormalities. The tissue Doppler parameters were abnormal. There was no evidence of elevated ventricular filling pressure by Doppler parameters. Aortic valve: Trileaflet; mildly thickened leaflets. Mild calcification. Mobility was not restricted. Doppler: Transvalvular velocity was within the normal range. There was no stenosis. There was mild regurgitation. VTI ratio of LVOT to aortic valve: 0.7. Valve area (VTI): 2.2cm^2. Indexed valve area (VTI): 1.5cm^2/m^2. Peak velocity ratio of LVOT to aortic valve: 0.61. Valve area (Vmax): 1.9cm^2. Indexed valve area (Vmax): 1.3cm^2/m^2. Mean velocity ratio of LVOT to aortic valve: 0.7. Valve area (Vmean): 2.2cm^2. Indexed valve area (Vmean): 1.5cm^2/m^2. Mean gradient (S): 6.5mm Hg. Peak gradient (S): 12.5mm Hg. Aorta: Aortic root: The aortic root was normal in size. Ascending aorta: The ascending aorta was mildly dilated. Mitral valve: Mildly calcified annulus. Mobility was not restricted. Doppler: Transvalvular velocity was within the normal range. There was no evidence for stenosis. There was mild regurgitation. Valve area by pressure half-time: 2.3cm^2. Indexed valve area by pressure half-time: 1.6cm^2/m^2. Left atrium: The atrium was moderately dilated. Atrial septum: No defect or patent foramen ovale was identified. Right ventricle: The cavity size was normal. Wall thickness was normal. Pacer wire or catheter noted in right ventricle. Systolic function was normal. Ventricular septum: Septal motion showed paradoxical motion. Pulmonic valve: Doppler: Transvalvular velocity was within the normal range. There was no evidence for stenosis. There was mild regurgitation. Peak gradient (S): 3.6mm Hg. Tricuspid valve: Structurally normal valve. Doppler: Transvalvular velocity was within the normal range. There was no evidence for stenosis. There was moderate regurgitation. Pulmonary artery: Pulmonary systolic pressure was within the normal range. Main pulmonary artery: The artery was not well visualized. Right atrium: The atrium was moderately dilated. Pacer wire or catheter noted in right atrium. Pericardium: A prominent pericardial fat pad was present. There was no pericardial effusion. Systemic veins: Inferior vena cava: Well visualized. The vessel was patent and small, appearing collapsed, consistent with low central venous pressure. The respirophasic diameter changes were in the normal range (greater than or equal to 50%). Baseline ECG: Paced rhythm. Measurements Left ventricle Value 09/04/2018 Reference LV ID, ED, PLAX 4.0 cm 4.5 3.5 - 6.0 LV ID, ES, PLAX 2.7 cm 3.3 2.1 - 4.0 LV PW thickness, ED, PLAX 1.1 cm 1.1 LV end-diastolic volume, 54 ml 48 1-p A2C LV ejection fraction, 1-p 59 % 52 A2C LV end-diastolic volume, 49 ml 51 1-p A4C LV ejection fraction, 1-p 59 % 46 A4C LV e', lateral 0.052 m/sec 0.06 LV E/e', lateral 10 7 LV e', medial 0.041 m/sec 0.035 LV E/e', medial 13 13 LV e', average 0.047 m/sec 0.048 LV E/e', average 11 9 Ventricular septum Value 09/04/2018 Reference IVS thickness, ED, PLAX 1.2 cm 1.2 LVOT Value 09/04/2018 Reference LVOT ID, A-P 2.0 cm 2.0 LVOT area 3.1 cm^2 3 LVOT peak velocity, S 1.09 m/sec 0.99 LVOT mean velocity, S 0.84 m/sec 0.72 LVOT VTI, S 23.7 cm 21.4 LVOT peak gradient, S 4.7 mm Hg 3.9 LVOT mean gradient, S 3.1 mm Hg 2.3 Stroke volume (SV), LVOT 74 ml 65 DP Stroke index (SV/bsa), 52 ml/m^2 42 LVOT DP Aortic valve Value 09/04/2018 Reference Aortic valve peak 1.8 m/sec 1.9 velocity, S Aortic valve mean 1.2 m/sec 1.36 velocity, S Aortic valve VTI, S 34.0 cm 33.0 Aortic mean gradient, S 6.5 mm Hg 7.9 Aortic peak gradient, S 12.5 mm Hg 13.8 VTI ratio, LVOT/AV 0.7 0.65 Aortic valve area, VTI 2.2 cm^2 2 Velocity ratio, peak, 0.61 0.53 LVOT/AV Aortic valve area, peak 1.9 cm^2 1.6 velocity Velocity ratio, mean, 0.7 0.53 LVOT/AV Aortic valve area, mean 2.2 cm^2 1.6 velocity Aortic valve area/bsa, 1.5 cm^2/m^2 1 mean velocity Aorta Value 09/04/2018 Reference Aortic root ID, ED 3.2 cm 3.2 Ascending aorta ID, A-P, S 3.5 cm 3.5 Left atrium Value 09/04/2018 Reference LA ID, A-P, ES 3.5 cm 3.6 LA ID/bsa, A-P (H) 2.4 cm/m^2 2.3 <=2.2 LA area, ES, A4C (H) 26.1 cm^2 29.5 8.8 - 23.4 LA volume/bsa, ES, 1-p A4C 62 ml/m^2 74 LA/aortic root ratio 1.08 1.12 Mitral valve Value 09/04/2018 Reference Mitral E-wave peak 0.52 m/sec 0.45 velocity Mitral A-wave peak 0.72 m/sec 0.76 velocity Mitral deceleration time (H) 330 ms 296 150 - 230 Mitral pressure half-time 96 ms 86 Mitral E/A ratio, peak 0.72 0.59 Mitral valve area, PHT, DP 2.3 cm^2 2.6 Tricuspid valve Value 09/04/2018 Reference Tricuspid regurg peak 2.9 m/sec 3.5 velocity Tricuspid peak RV-RA 34.4 mm Hg 48.9 gradient Right atrium Value 09/04/2018 Reference RA area, ES, A4C (H) 22.8 cm^2 20.7 8.3 - 19.5 Pulmonic valve Value 09/04/2018 Reference Pulmonic peak gradient, S 3.6 mm Hg 4.8 Legend: (L) and (H) kiara values outside specified reference range. I have personally reviewed the images and have reviewed and edited the reported findings. Electronically signed by Margarita Murphy 10/05/2018 17:21
== END 2018-10-05 01:22 ==
PROVIDERS: PCP Specialist/Technologist Athletic Trainer; Visit Provider Internal Medicine Interventional Cardiology
DX: I48.91 Unspecified atrial fibrillation (principal); I50.9 Heart failure, unspecified; I08.3 Combined rheumatic disorders of mitral, aortic and tricuspid valves; I10 Essential (primary) hypertension; Z95.810 Presence of automatic (implantable) cardiac defibrillator
CPT/HCPCS: 93306

== ENCOUNTER 2018-10-17 11:17 | Inpatient (IN) | payer MEDICARE, SELFPAY ==
[2018-10-17] VITALS (59 sets, daily range): BP systolic 102–174; BP diastolic 54–83; PULSE 58–77; RESP 16–18; TEMP 36.1–36.6; O2SAT 92–97
--- NOTE | 2018-10-17 11:23 | ED.GENADUL_ITS ---
Discharge Plan Disposition Patient Disposition: [facility] INPATIENT Condition: Stable Discharge Details Chief Complaint: HeadInjury Clinical Impression: Hypercalcemia, Acute on chronic renal insufficiency, Closed head injury without loss of consciousness Admit Date/Time: 10/17/18 14:17 Admit Provider: Constanza Schultz Attending Provider: Constanza Schultz Primary Care Provider: Fran Self ED Provider: Charis Evans Discharge Data Discharge Date/Time-TO BE ENTERED AT DEPARTURE: 10/17/18 18:00 Medical Decision Making 83-year-old female with a history of CHF, paroxysmal atrial fibrillation on Eliquis, hypertension, COPD, depression, CKD, pacemaker, AICD and thoracic aneurysm repair who presents with left temporal headache and nausea for the past 5 days status post mechanical fall with head injury as well as dizziness, fatigue and weakness for the past week prior to fall. Patient was admitted here last month for pneumonia and ZAFAR. Oxygen 94% on RA, remainder of vitals within normal limits. No palpable skull fracture. C-spine nontender. No evidence of extremity injury. Abdomen soft nontender. Mild left anterior chest tenderness but denies any fall onto chest and no other evidence of chest trauma. Main concern would be head bleed on anticoagulation. Will send for stat CT head and cervical spine, check screening labs, urinalysis and chest x-ray. As for ongoing weakness and dizziness, this can include dehydration, UTI, electrolyte abnormality. Will give small bolus IVF. She has EKG notes a rate of 64 and sinus and no acute ST findings. 1320 --labs reviewed and note calcium 13.6. Normal albumin. Creatinine 2.58, increased from 1.39 on 09/12/2018. Troponin 0.05 CT head, CT cervical spine and chest x-ray negative. We will continue IV fluids and admit for observation, fluids and recheck labs in a.m. 1340 --discussed with hospitalist -accepts patient for admission. Medical Records Medical records reviewed: Yes I reviewed the patient's medical records. Imaging Data Radiologic Study: Radiologist's impression: AP AND LATERAL CHEST: When compared with the previous examination of 09/07, there has been significant interval clearing of the right lung. The left lung is clear. There is no pleural effusion. The heart is unchanged in size. The pacing are in stable position. SUMMARY: Interval improvement is demonstrated with substantial interval clearing of the lungs. CRANIAL CT: There is no evidence of an intra/extra-axial hemorrhage. Regions of radiolucency in the frontoparietal white matter would be consistent with small vessel disease. There is nothing to suggest a territorial infarct. The ventricles are normal. There is no evidence of a skull fracture. The paranasal sinuses are normal. There is no evidence of a mastoid effusion. SUMMARY: No acute intracranial abnormality is seen. C-SPINE CT: The vertebral bodies appear intact. Multilevel disc space narrowing is noted. There is a 3 mm anterior subluxation of C4 on C5, which is associated with severe facet joint DJD. The neural canal is widely patent throughout. The posterior elements are intact. The odontoid is well maintained and is closely applied to the anterior arch of C1. The prevertebral soft tissues are normal. SUMMARY: Severe degenerative changes involving the cervical spine are evident. There is no evidence of a superimposed acute fracture or dislocation. Lab Data Lab results reviewed: Yes I reviewed the patient's lab results. Laboratory Tests Range/Units 10/17/18 10/17/18 10/17/18 12:30 12:30 12:30 WBC (4.4-10.8) k/cumm 8.61 RBC (4.00-5.20) m/cumm 4.08 Hgb (12.0-15.5) g/dL 12.1 Hct (36.0-46.0) % 38.8 MCV (80-95) fL 95.1 H MCH (27.0-33.0) pg 29.7 MCHC (32.0-36.0) g/dL 31.2 L RDW (11.7-14.6) % 17.2 H Plt Count (130-400) x1000/uL 281 MPV (8.0-11.0) fL 9.1 Immature Gran % 0.3 Neutrophils % 66.2 Lymphocytes % 17.7 Monocytes % 11.8 Eosinophils % 3.1 Basophils % 0.9 Absolute Neutrophils (1.2-6.7) k/cumm 5.69 Absolute Lymphocytes (1.2-3.4) k/cumm 1.52 Absolute Monocytes (0.11-0.7) k/cumm 1.02 H Absolute Eosinophils (0.0-0.7) k/cumm 0.27 Absolute Basophils (0.0-0.2) k/cumm 0.08 Sodium (136-145) mmol/L 137 Potassium (3.5-5.1) mmol/L 4.2 Chloride (98-107) mmol/L 99 Carbon Dioxide (21.0-32.0) mmol/L 31.7 Anion Gap (3-11) mmol/L 6.3 BUN (7-18) mg/dL 39 H Creatinine (0.55-1.02) mg/dL 2.58 H Estimated GFR/1.73 m2 (mL/min/1.73m2) 17.78 Glucose (70-100) mg/dL 102 H Calcium (8.5-10.1) mg/dL 13.6 H* Magnesium (1.8-2.4) mg/dL 2.1 Total Bilirubin (0.2-1.0) mg/dL 0.6 AST (15-37) U/L 22 ALT (12-78) U/L 18 Alkaline Phosphatase (46-116) U/L 61 Troponin I (0.00-0.06) ng/mL 0.05 NT-Pro-B Natriuret Pep ( - 299) pg/mL 1640 H Total Protein (6.4-8.2) g/dL 7.3 Albumin (3.4-5.0) g/dL 3.4 Urine Color (Yellow) Urine Clarity Urine pH (5-8) Ur Specific [place] (1.005-1.025) Urine Protein (Negative) mg/dL Urine Ketones (Negative) mg/dL Urine Blood (Negative) Urine Nitrite (Negative) Urine Bilirubin (Negative) Urine Urobilinogen (Up TO 0.2) EU/dL Ur Leukocyte Esterase (Negative) Urine RBC Urine WBC (0-5) HPF Ur Epithelial Cells (Negative) HPF Urine Crystals (Negative) HPF Urine Bacteria (Negative) HPF Urine Mucus (Negative) Ur Culture Indicated? Urine Glucose (Negative) mg/dL Range/Units 10/17/18 13:56 WBC (4.4-10.8) k/cumm RBC (4.00-5.20) m/cumm Hgb (12.0-15.5) g/dL Hct (36.0-46.0) % MCV (80-95) fL MCH (27.0-33.0) pg MCHC (32.0-36.0) g/dL RDW (11.7-14.6) % Plt Count (130-400) x1000/uL MPV (8.0-11.0) fL Immature Gran % Neutrophils % Lymphocytes % Monocytes % Eosinophils % Basophils % Absolute Neutrophils (1.2-6.7) k/cumm Absolute Lymphocytes (1.2-3.4) k/cumm Absolute Monocytes (0.11-0.7) k/cumm Absolute Eosinophils (0.0-0.7) k/cumm Absolute Basophils (0.0-0.2) k/cumm Sodium (136-145) mmol/L Potassium (3.5-5.1) mmol/L Chloride (98-107) mmol/L Carbon Dioxide (21.0-32.0) mmol/L Anion Gap (3-11) mmol/L BUN (7-18) mg/dL Creatinine (0.55-1.02) mg/dL Estimated GFR/1.73 m2 (mL/min/1.73m2) Glucose (70-100) mg/dL Calcium (8.5-10.1) mg/dL Magnesium (1.8-2.4) mg/dL Total Bilirubin (0.2-1.0) mg/dL AST (15-37) U/L ALT (12-78) U/L Alkaline Phosphatase (46-116) U/L Troponin I (0.00-0.06) ng/mL NT-Pro-B Natriuret Pep ( - 299) pg/mL Total Protein (6.4-8.2) g/dL Albumin (3.4-5.0) g/dL Urine Color (Yellow) Yellow Urine Clarity Clear Urine pH (5-8) 7.0 Ur Specific [place] (1.005-1.025) 1.015 Urine Protein (Negative) mg/dL Negative Urine Ketones (Negative) mg/dL Negative Urine Blood (Negative) Negative Urine Nitrite (Negative) Negative Urine Bilirubin (Negative) Negative Urine Urobilinogen (Up TO 0.2) EU/dL 0.2 Ur Leukocyte Esterase (Negative) Small H Urine RBC Not Applicable Urine WBC (0-5) HPF 20-50 Ur Epithelial Cells (Negative) HPF Many Urine Crystals (Negative) HPF Negative Urine Bacteria (Negative) HPF Few Urine Mucus (Negative) Negative Ur Culture Indicated? No/sq. contamination Urine Glucose (Negative) mg/dL Negative ECG Data Attestation: I personally reviewed and interpreted this ECG (s) as follows: Interpretation: Rate of 64, sinus, no acute ST elevation or depression. No acute change in previous EKG. QTc 435. QRS 104. HPI General Mode of arrival: ambulatory . Date/Time Provider Initiated Documentation: 10/17/18 11:20 . Limitations to Documentation: no limitations . Information obtained by: patient . HPI Narrative: Patient is an 83-year-old female with a history of CHF, paroxysmal atrial fibrillation, hypertension, COPD, depression, CKD, AICD, pacemaker who presents with left temporal headache, weakness and nausea over the past 5 days status post mechanical fall in bathroom in which she hit the left side of her head on the faucet 5 days ago. She denies LOC. She states her headache is only on the left side and currently 9/10. She admits to constant chronic blurry vision and states is no worse than usual. She denies any neck pain. She states she took Aleve for pain without relief. She also admits to fatigue, dizziness and weakness for the past week and has been lying in bed more frequently. She was encouraged to come to the ED by her son-in-law who is more concerned about her increasing weakness which has been there prior to the head injury. She denies any fever, chest pain, abdominal pain, urinary symptoms and states she has been eating and drinking normally. She admits to chronic shortness of breath for months but states this is no worse than usual. Related Data Home Medications Medication Instructions Recorded Confirmed Eliquis 2.5 mg PO BID tab-cap 09/17/16 10/17/18 clonidine HCl 0.1 mg PO BID tab-cap 09/17/16 10/17/18 metoprolol tartrate 25 mg PO BID tab-cap 09/17/16 10/17/18 potassium chloride [Klor-Con 10] 10 meq PO DAILY tab-cap 09/17/16 10/17/18 silver sulfadiazine [Thermazene] 50 gm TOPICAL DAILY PRN tube 09/17/16 10/17/18 Breo Ellipta 1 inh INHALATION DAILY 09/01/18 10/17/18 calcium carbonate [Calcium 600] 600 mg PO BID 09/01/18 10/17/18 cholecalciferol (vitamin D3) 2,000 unit PO DAILY 09/01/18 10/17/18 [Vitamin D3] hydralazine 10 mg PO BID 09/01/18 10/17/18 losartan 25 mg tablet 25 mg PO DAILY 09/19/18 10/17/18 dapsone 25 mg PO BID 10/17/18 10/17/18 furosemide 40 mg PO DAILY 10/17/18 10/17/18 lisinopril 40 mg PO DAILY 10/17/18 10/17/18 theophylline 200 mg PO DAILY 10/17/18 10/17/18 Allergies Allergy/AdvReac Type Severity Reaction Status Date / Time adhesive Allergy Unverified 09/01/18 08:58 gluten Allergy Unverified 09/01/18 08:58 pork derived (porcine) Allergy Unverified 09/01/18 08:58 coumadin Allergy Uncoded 09/01/18 08:58 dairy Allergy Uncoded 09/01/18 08:58 eggs Allergy Uncoded 09/01/18 08:58 flu vaccine Allergy Uncoded 09/01/18 08:58 tape Allergy Uncoded 09/01/18 08:58 General WESLEY: 2 Review of Systems Review of Systems All systems reviewed & are unremarkable except as noted in HPI and below Constitutional Reports as per HPI, Denies chills, Denies fever(s), Reports headache(s) and Reports weakness Eyes Denies blurry vision ENT Denies dizziness, Reports headache(s), Denies sore throat and Denies throat swelling Cardiovascular Denies chest pain and Denies dyspnea Respiratory Denies cough and Denies dyspnea Gastrointestinal Denies abdominal pain, Denies diarrhea, Reports nausea and Denies vomiting Genitourinary Denies hematuria and Denies dysuria Musculoskeletal Denies back pain and Denies numbness Integumentary/Breasts Denies lesions and Denies rash Neurologic Denies dizziness, Reports headache(s), Denies focal weakness, Denies numbness and Reports weakness Allergic/Immunologic Denies throat swelling [facility] Medical History Hypercalcemia (Chronic) CHF (congestive heart failure) (Chronic) Presence of permanent cardiac pacemaker (Chronic) PAF (paroxysmal atrial fibrillation) (Chronic) Hypertension (Chronic) Pulmonary hypertension (Chronic) Asthma (Chronic) CKD (chronic kidney disease) (Chronic) Chronic kidney disease (Acute) Asthma (Chronic) Atrial fibrillation (Chronic) CHF (congestive heart failure) (Chronic) COPD (chronic obstructive pulmonary disease) (Chronic) Depression (Chronic) HTN (hypertension) (Chronic) Surgical History History of thoracic aortic aneurysm repair (Chronic) AICD (automatic cardioverter/defibrillator) present (Acute) H/O thoracic aortic aneurysm repair (Acute) Pacemaker (Acute) Social History Smoking/Tobacco Use Status: Never Alcohol Intake: never Substance use type: does not use Do you feel safe at home: Yes Do you feel safe in your relationship?: Yes Exam Const General: cooperative and healthy appearing Orientation: alert and awake HENMT Head: normal to inspection, no palpable skull fracture and no contusions Head images: 1. Mild tenderness to palpation. Ears: hearing grossly normal bilaterally, external ears normal and TM's normal bilaterally General nose exam: external nose normal Face and sinus: normal facial exam Mouth: oral mucosae normal Teeth and gingiva: dentition normal Throat: posterior oropharynx normal Eyes General: appearance normal, both eyes and all related structures Eyelids: eyelids normal Pupils: PERRL EOM: EOM intact bilaterally Neck Neck: normal visual inspection Lymphatic: no lymphadenopathy noted Chest Chest: normal inspection of the chest and tenderness (Mild left anterior chest) Resp Effort & Inspection: normal respiratory effort and able to speak in complete sentences Auscultation: clear to auscultation bilaterally Cardio Rate: regular rate Rhythm: regular rhythm GI Inspection: normal to inspection Palpation: soft, not firm, no guarding, no hepatosplenomegaly, no masses and nontender Auscultation: normal bowel sounds Back/Spine/Pelvis Cervical Spine: No cervical spinal tenderness Thoracic/Lumbar Spine: thoracic and lumbar spine normal to inspection, No thoracic spinal tenderness and No lumbar spinal tenderness Skin General skin exam: no rashes or lesions noted Neuro General: alert and awake Cranial Nerves: CN's II-XI intact bilaterally Cognition: normal cognition Speech: speech normal Gait: normal gait Motor: muscle tone normal throughout and strength 5/5 throughout Sensory Exam: no sensory deficits noted Extrem General: normal to inspection, full ROM and normal capillary refill Other: No pain with range of motion at hips bilaterally. No extremity shortening or external rotation. Psych Appearance: grossly normal Mental Status: mental status grossly normal Speech and Movement: speech and movement normal Affect: normal affect Thought Process: normal
--- NOTE | 2018-10-17 11:36 | DI.RAD_ITS ---
SYMPTOMS/DIAGNOSIS: S/P FALL, ? ACUTE DISEASE/FRACTURE AP AND LATERAL CHEST: When compared with the previous examination of 09/07, there has been significant interval clearing of the right lung. The left lung is clear. There is no pleural effusion. The heart is unchanged in size. The pacing are in stable position. SUMMARY: Interval improvement is demonstrated with substantial interval clearing of the lungs.
--- NOTE | 2018-10-17 11:36 | DI.CT_ITS ---
SYMPTOMS/DIAGNOSIS: S/P FALL, ? ACUTE FRACTURE/INTRACRANIAL INJURY CRANIAL CT: There is no evidence of an intra/extra-axial hemorrhage. Regions of radiolucency in the frontoparietal white matter would be consistent with small vessel disease. There is nothing to suggest a territorial infarct. The ventricles are normal. There is no evidence of a skull fracture. The paranasal sinuses are normal. There is no evidence of a mastoid effusion. SUMMARY: No acute intracranial abnormality is seen. C-SPINE CT: The vertebral bodies appear intact. Multilevel disc space narrowing is noted. There is a 3 mm anterior subluxation of C4 on C5, which is associated with severe facet joint DJD. The neural canal is widely patent throughout. The posterior elements are intact. The odontoid is well maintained and is closely applied to the anterior arch of C1. The prevertebral soft tissues are normal. SUMMARY: Severe degenerative changes involving the cervical spine are evident. There is no evidence of a superimposed acute fracture or dislocation.
[2018-10-17 12:39] LABS: Abs Immature Grans 0.03 k/cumm (0.0-0.09); Absolute Basophil Count 0.08 k/cumm (0.0-0.2); Absolute Eosinophil Count 0.27 k/cumm (0.0-0.7); Absolute Lymphocyte Count 1.52 k/cumm (1.2-3.4); Absolute Monocyte Count 1.02 k/cumm (0.11-0.7); Absolute Neutrophil Count 5.69 k/cumm (1.2-6.7); Basophils % 0.9; Eosinophils % 3.1; HCT 38.8 % (36.0-46.0); HGB 12.1 g/dL (12.0-15.5); Immature Grans % 0.3; Lymphocytes % 17.7; Mean Corp. HGB Concentration 31.2 g/dL (32.0-36.0); Mean Corpuscular Hemoglobin 29.7 pg (27.0-33.0); Mean Corpuscular Volume 95.1 fL (80-95); Mean Platelet Volume 9.1 fL (8.0-11.0); Monocytes % 11.8; Neutrophils % 66.2; Platelet Count 281 x1000/uL (130-400); RBC 4.08 m/cumm (4.00-5.20); RBC Distribution Width 17.2 % (11.7-14.6); White Blood Cell Count 8.61 k/cumm (4.4-10.8)
[2018-10-17 12:59] LABS: ALT 18 U/L (12-78); AST 22 U/L (15-37); Albumin 3.4 g/dL (3.4-5.0); Alkaline Phosphatase 61 U/L (46-116); Anion Gap 6.3 mmol/L (3-11); BUN 39 mg/dL (7-18); Bilirubin, Total 0.6 mg/dL (0.2-1.0); CO2 31.7 mmol/L (21.0-32.0); CREATININE 2.58 mg/dL (0.55-1.02); Chloride 99 mmol/L (98-107); Estimated GFR 17.78 (mL/min/1.73m2); Glucose 102 mg/dL (70-100); Magnesium 2.1 mg/dL (1.8-2.4); Potassium 4.2 mmol/L (3.5-5.1); Sodium 137 mmol/L (136-145); Total Protein 7.3 g/dL (6.4-8.2); Troponin I 0.05 ng/mL (0.00-0.06)
[2018-10-17 13:01] LABS: Calcium 13.6 mg/dL (8.5-10.1)
[2018-10-17 13:02] LABS: NT-proBNP 1640 pg/mL
[2018-10-17] MEDS: Normal Saline 250 ML IV (13:27)
[2018-10-17 14:10] LABS: Bilirubin Negative (Negative); Blood Negative (Negative); Clarity Clear; Glucose Negative (Negative); Ketones Negative (Negative); Leukocyte Esterase Small (Negative); Nitrite Negative (Negative); Specific Gravity 1.015 (1.005-1.025); Urobilinogen 0.2 EU/dL (Up TO 0.2)
[2018-10-17 14:24] LABS: WBC 20-50 HPF (0-5)
[2018-10-17 14:25] LABS: Bacteria Few HPF (Negative); C & S Indicated? No/Sq. Contamination; Crystals Negative HPF (Negative); Epithelial Cells Many HPF (Negative); Mucus Negative (Negative)
--- NOTE | 2018-10-17 14:51 | HPE_ITS ---
Date of service: 10/17/18 Time of Service: 14:39 Assessment and Plan (1) Acute kidney injury superimposed on chronic kidney disease: Current visit: Yes Status: Acute This appears to be due to a combination of interaction of torie-i and arb given concomittently, as well as dehydration due to increased dose of lasix. Will hold diuresis, acei, arb, and hydrate gently for the next 24 hours, monitoring Cr. (2) Hypercalcemia: Current visit: No Status: Acute Likely due to combination of dehydration and iatrogenic hypercalcemia. D/c calcium supplements. Hydrate. (3) PAF (paroxysmal atrial fibrillation): Current visit: No Status: Chronic Monitor on tele as patient does report palpitations and dizziness at home. (4) Pulmonary hypertension: Current visit: No Status: Chronic Monitor respiratory status while hydrating. (5) Asthma: Current visit: No Status: Chronic Continue theophyline, breo (6) Dehydration: Current visit: Yes Status: Acute gentle IVF (7) Ambulatory dysfunction: Current visit: Yes Status: Acute PT/OT (8) Dizziness: Current visit: Yes Status: Acute Hydrate. HOld torie-i/ARB. MOnitor on tele to ensure no recurrence of AFib. 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 She states she accidentally slipped in fell in the bathroom 4 days ago, hitting her L posterior side of the head on the faucet. She did not lose consciousness at that time, but has had occasional pain in her occiput, especially on the left side, since. Today, she was so dizzy she almost fell again, though the patient states she didn't think she would pass out. She does endorse occasional palpitations. She states that for the last 2 days, she hasn't been drinking water for some reason. She states she continued to eat however. She has not been constipated. Denies fevers, chest pain. Endorses nausea, but no vomiting. No abdominal pain. No urinary sx. Importantly, she was seen by pulmonology at [facility], who felt that her infiltrates on CT/CXR were due to fluid overload and recommended icnreasing lasix to 40 mg PO daily. The patient cannot tell me if she is still on steroids. She was discharged from [facility] with resumption of calcium supplements. Review of Systems Review of Systems 12 systems attempted to be reviewed. Pertinent positives and negatives are as per HPI. [facility] Medical History Hypercalcemia (Chronic) CHF (congestive heart failure) (Chronic) Presence of permanent cardiac pacemaker (Chronic) PAF (paroxysmal atrial fibrillation) (Chronic) Hypertension (Chronic) Pulmonary hypertension (Chronic) Asthma (Chronic) CKD (chronic kidney disease) (Chronic) Chronic kidney disease (Acute) Asthma (Chronic) Atrial fibrillation (Chronic) CHF (congestive heart failure) (Chronic) COPD (chronic obstructive pulmonary disease) (Chronic) Depression (Chronic) HTN (hypertension) (Chronic) Surgical History History of thoracic aortic aneurysm repair (Chronic) AICD (automatic cardioverter/defibrillator) present (Acute) H/O thoracic aortic aneurysm repair (Acute) Pacemaker (Acute) Social History Smoking/Tobacco Use Status: Never Alcohol Intake: never Substance use type: does not use Do you feel safe at home: Yes Do you feel safe in your relationship?: Yes Meds Home Medications Medication Instructions Recorded Confirmed Type Eliquis 2.5 mg PO BID tab-cap 09/17/16 09/01/18 History clonidine HCl 0.1 mg PO BID tab-cap 09/17/16 09/01/18 History metoprolol tartrate 25 mg PO BID tab-cap 09/17/16 09/01/18 History potassium chloride [Klor-Con 10] 10 meq PO DAILY tab-cap 09/17/16 09/01/18 History silver sulfadiazine [Thermazene] 50 gm TOPICAL DAILY tube 09/17/16 09/01/18 History Breo Ellipta 1 inh INHALATION DAILY 09/01/18 09/01/18 History calcium carbonate [Calcium 600] 600 mg PO BID 09/01/18 09/01/18 History cholecalciferol (vitamin D3) 2,000 unit PO DAILY 09/01/18 09/01/18 History [Vitamin D3] hydralazine 10 mg PO BID 09/01/18 09/01/18 History losartan 25 mg tablet 25 mg PO DAILY 09/19/18 09/19/18 History dapsone 25 mg PO BID 10/17/18 10/17/18 History furosemide 40 mg PO DAILY 10/17/18 10/17/18 History lisinopril 40 mg PO DAILY 10/17/18 10/17/18 History theophylline 200 mg PO DAILY 10/17/18 10/17/18 History Allergies Allergy/AdvReac Type Severity Reaction Status Date / Time adhesive Allergy Unverified 09/01/18 08:58 gluten Allergy Unverified 09/01/18 08:58 pork derived (porcine) Allergy Unverified 09/01/18 08:58 coumadin Allergy Uncoded 09/01/18 08:58 dairy Allergy Uncoded 09/01/18 08:58 eggs Allergy Uncoded 09/01/18 08:58 flu vaccine Allergy Uncoded 09/01/18 08:58 tape Allergy Uncoded 09/01/18 08:58 Exam Narrative Exam Narrative: General: frail elderly female, mentally at her baseline, laying comfortably flat in bed, NAD Neuro: A&Ox2, no focal deficits Psych: appropriate speech pattern/content, bright affect Skin: no obvious bruising/lesions/bullae HEENT: Seemingly atraumatic, normocephalic, EOMI, Dry MM, no goiter or JVD Heart: RRR, no m/r/g Lungs: CTAB GI: abdomen is soft, nontender, nondistended Extremities: no e/c/c BLE's, +1 B pedal pulses Results Imaging Additional studies: CT head/C-spine: No acute intracranial abnormality is seen. Severe degenerative changes involving the cervical spine are evident. There is no evidence of a superimposed acute fracture or dislocation. CXR: Interval improvement is demonstrated with substantial interval clearing of the lungs. EKG: NSR, HR 64, Borderline ST elevations in leads V1, V2 (old), otherwise ST depressions in all other leads. No pacer spikes noted. Labs : 10/17/18 12:30 10/17/18 12:30 Laboratory Results - last 24 hr 10/17/18 10/17/18 10/17/18 12:30 12:30 12:30 WBC 8.61 RBC 4.08 Hgb 12.1 Hct 38.8 MCV 95.1 H MCH 29.7 MCHC 31.2 L RDW 17.2 H Plt Count 281 MPV 9.1 Immature Gran % 0.3 Neutrophils % 66.2 Lymphocytes % 17.7 Monocytes % 11.8 Eosinophils % 3.1 Basophils % 0.9 Absolute Neutrophils 5.69 Absolute Lymphocytes 1.52 Absolute Monocytes 1.02 H Absolute Eosinophils 0.27 Absolute Basophils 0.08 Sodium 137 Potassium 4.2 Chloride 99 Carbon Dioxide 31.7 Anion Gap 6.3 BUN 39 H Creatinine 2.58 H Estimated GFR/1.73 m2 17.78 Glucose 102 H Calcium 13.6 H* Magnesium 2.1 Total Bilirubin 0.6 AST 22 ALT 18 Alkaline Phosphatase 61 Troponin I 0.05 NT-Pro-B Natriuret Pep 1640 H Total Protein 7.3 Albumin 3.4 Urine Color Urine Clarity Urine pH Ur Specific [place] Urine Protein Urine Ketones Urine Blood Urine Nitrite Urine Bilirubin Urine Urobilinogen Ur Leukocyte Esterase Urine RBC Urine WBC Ur Epithelial Cells Urine Crystals Urine Bacteria Urine Mucus Ur Culture Indicated? Urine Glucose 10/17/18 13:56 WBC RBC Hgb Hct MCV MCH MCHC RDW Plt Count MPV Immature Gran % Neutrophils % Lymphocytes % Monocytes % Eosinophils % Basophils % Absolute Neutrophils Absolute Lymphocytes Absolute Monocytes Absolute Eosinophils Absolute Basophils Sodium Potassium Chloride Carbon Dioxide Anion Gap BUN Creatinine Estimated GFR/1.73 m2 Glucose Calcium Magnesium Total Bilirubin AST ALT Alkaline Phosphatase Troponin I NT-Pro-B Natriuret Pep Total Protein Albumin Urine Color Yellow Urine Clarity Clear Urine pH 7.0 Ur Specific [place] 1.015 Urine Protein Negative Urine Ketones Negative Urine Blood Negative Urine Nitrite Negative Urine Bilirubin Negative Urine Urobilinogen 0.2 Ur Leukocyte Esterase Small H Urine RBC Not Applicable Urine WBC 20-50 Ur Epithelial Cells Many Urine Crystals Negative Urine Bacteria Few Urine Mucus Negative Ur Culture Indicated? No/sq. contamination Urine Glucose Negative Last Vital Signs Temp 36.6 C 05/21/19 11:35 Pulse 64 10/17/18 14:01 Resp 18 10/17/18 12:05 BP 118/63 10/17/18 14:01 Pulse Ox 94 L 10/17/18 14:10
[2018-10-17] MEDS: cloNIDine 0.1 MG TAB PO (19:57)
[2018-10-17] MEDS: Apixaban 2.5 MG TAB PO (19:57)
[2018-10-17] MEDS: Docusate Sodium 100 MG CAP PO (19:58)
[2018-10-17] MEDS: Metoprolol 25 MG TAB PO (19:58)
[2018-10-17] MEDS: hydrALAZINE 10 MG TAB PO (19:58)
[2018-10-17] MEDS: Normal Saline 1,000 ML 75 ML IV (19:58)
[2018-10-18] VITALS (19 sets, daily range): BP systolic 124–194; BP diastolic 64–92; PULSE 57–88; RESP 16–20; TEMP 36.2–37.1; O2SAT 94–98
[2018-10-18] MEDS: Acetaminophen 325 MG TAB PO ×4 (00:48→20:20)
[2018-10-18 07:34] LABS: Abs Immature Grans 0.01 k/cumm (0.0-0.09); Absolute Basophil Count 0.04 k/cumm (0.0-0.2); Absolute Eosinophil Count 0.28 k/cumm (0.0-0.7); Absolute Lymphocyte Count 1.09 k/cumm (1.2-3.4); Absolute Monocyte Count 0.71 k/cumm (0.11-0.7); Absolute Neutrophil Count 4.85 k/cumm (1.2-6.7); Basophils % 0.6; HCT 38.2 % (36.0-46.0); HGB 11.9 g/dL (12.0-15.5); Immature Grans % 0.1; Lymphocytes % 15.6; Mean Corp. HGB Concentration 31.2 g/dL (32.0-36.0); Mean Corpuscular Hemoglobin 29.8 pg (27.0-33.0); Mean Corpuscular Volume 95.7 fL (80-95); Mean Platelet Volume 9.2 fL (8.0-11.0); Monocytes % 10.2; Neutrophils % 69.5; Platelet Count 258 x1000/uL (130-400); RBC 3.99 m/cumm (4.00-5.20); White Blood Cell Count 6.98 k/cumm (4.4-10.8)
[2018-10-18 07:51] LABS: Anion Gap 8.4 mmol/L (3-11); BUN 37 mg/dL (7-18); CO2 28.6 mmol/L (21.0-32.0); CREATININE 2.35 mg/dL (0.55-1.02); Calcium 11.1 mg/dL (8.5-10.1); Chloride 103 mmol/L (98-107); Glucose 92 mg/dL (70-100); Magnesium 1.9 mg/dL (1.8-2.4); Potassium 3.8 mmol/L (3.5-5.1); Sodium 140 mmol/L (136-145)
--- NOTE | 2018-10-18 08:17 | DI.CT_ITS ---
SYMPTOM/DIAGNOSIS: INCREASED PAIN LT SIDE, H/O FALL [address] HEAD [address]: Comparison is made with 10/17/18. No intracranial hemorrhage, mass or infarct is seen. There is no evidence of skull fracture. There has been no change from the previous day's exam. IMPRESSION: Negative head CT.
[2018-10-18 08:22] LABS: Diff Comment Diff Reviewed; RBC Morphology Normal
--- NOTE | 2018-10-18 08:25 | PDOC.CMIN ---
- If Service Date Differs Date of service: 10/18/18 Time of Service: 08:25 Care Management Initial Assess REASON FOR HOSPITALIZATION:: Acute kidney injury PAST MEDICAL HISTORY/PAST SURGICAL HISTORY:: Hypercalcemia (Chronic). CHF (congestive heart failure) (Chronic). Presence of permanent cardiac pacemaker (Chronic). PAF (paroxysmal atrial fibrillation) (Chronic). Hypertension (Chronic). Pulmonary hypertension (Chronic). Asthma (Chronic). CKD (chronic kidney disease) (Chronic). Chronic kidney disease (Acute). Asthma (Chronic). Atrial fibrillation (Chronic). CHF (congestive heart failure) (Chronic). COPD (chronic obstructive pulmonary disease) (Chronic). Depression (Chronic). HTN (hypertension) (Chronic). History of thoracic aortic aneurysm repair (Chronic). AICD (automatic cardioverter/defibrillator) present (Acute). H/O thoracic aortic aneurysm repair (Acute). Pacemaker (Acute) PREVIOUS FUNCTIONAL STATUS/SOCIAL/FAMILY SUPPORTS:: Antonia resides with her daughter Orly in [place], [place] she has a room on ground level and two steps into her home. Her , Adolfo resides at [facility] in [place], [place]. Antonia sees him almost daily and reports he suffers from advanced dementia and currently believes he is living [place] at [age] years old. Antonia is normally independent, no DME and no services. Antonia does not drive and shares that Fran Self recommended she no longer drive though this bothers her much as she has to depend on her daughter to transport her to [place] daily. Antonia shares that her and Adolfo spent márquez in [place] since 1981 and traveled around in [place] prior to settling with their daughter so Adolfo could recieve terminal make up operator care for his progressing illness. Antonia reports that she has two other daughters and a son whom reside in [place] all of whom are supportive. CURRENT FUNCTIONAL STATUS:: Currently Antonia is lying in bed. She reports that she has been having some dizziness and that nursing staff is aware of this. ADVANCE DIRECTIVES:: On file; Orly as POA and HC Agent, Jodee as alternate Has patient been provided with information about the portal?: Yes Did the patient sign up for the portal?: No CODE STATUS:: DNR/DNI INSURANCE COVERAGE / FINANCIAL ISSUES:: DAMIR, SHANIQUE CURRENT HOME/COMMUNITY SERVICES/EQUIPMENT:: Currently Antonia has home health RN services 2x/week. She has canes that she does not use in the home, and states that she has grab bars in her bathroom. PRIMARY CARE PHYSICIAN:: Fran Self POTENTIAL DISCHARGE NEEDS:: F/U appointment with PCP. resume home health RN PATIENT/FAMILY EDUCATION NEEDS:: Review DC instructions, any limitations, and ongoing DC planning discussion. Discuss 'Ask Me Three' ANTICIPATED BARRIERS TO DISCHARGE:: None identified at this time TRANSPORTATION:: Via private vehicle with her daughter Orly PLAN:: Antonia will return home with continued home health RN services. She will F/U with PCP and plan of care as prescribed. Antonia's daughter Orly to transport when ready.
--- NOTE | 2018-10-18 08:41 | INITIAL_ITS ---
- If Service Date Differs Date of service: 10/18/18 Time of Service: 08:25 Care Management Initial Assess REASON FOR HOSPITALIZATION:: Acute kidney injury PAST MEDICAL HISTORY/PAST SURGICAL HISTORY:: Hypercalcemia (Chronic). CHF (congestive heart failure) (Chronic). Presence of permanent cardiac pacemaker (Chronic). PAF (paroxysmal atrial fibrillation) (Chronic). Hypertension (Chronic). Pulmonary hypertension (Chronic). Asthma (Chronic). CKD (chronic kidney disease) (Chronic). Chronic kidney disease (Acute). Asthma (Chronic). Atrial fibrillation (Chronic). CHF (congestive heart failure) (Chronic). COPD (chronic obstructive pulmonary disease) (Chronic). Depression (Chronic). HTN (hypertension) (Chronic). History of thoracic aortic aneurysm repair (Chronic). AICD (automatic cardioverter/defibrillator) present (Acute). H/O thoracic aortic aneurysm repair (Acute). Pacemaker (Acute) PREVIOUS FUNCTIONAL STATUS/SOCIAL/FAMILY SUPPORTS:: Antonia resides with her daughter Orly in [place], [place] she has a room on ground level and two steps into her home. Her , Adolfo resides at [facility] in [place], [place]. Antonia sees him almost daily and reports he suffers from advanced dementia and currently believes he is living on the farm he grew up on at [age] years old. Antonia is normally independent, no DME and no services. Antonia does not drive and shares that Fran Self recommended she no longer drive though this bothers her much as she has to depend on her daughter to transport her to [place] daily. Antonia shares that her and Adolfo spent márquez in [place] since 1981 and traveled around in [place] prior to settling with their daughter so Adolfo could recieve truck terminal manager care for his progressing illness. Antonia reports that she has two other daughters and a son whom reside in [place] all of whom are supportive. CURRENT FUNCTIONAL STATUS:: Currently Antonia is lying in bed. She reports that she has been having some dizziness and that nursing staff is aware of this. ADVANCE DIRECTIVES:: On file; Orly as POA and HC Agent, Jodee as alternate Has patient been provided with information about the portal?: Yes Did the patient sign up for the portal?: No CODE STATUS:: DNR/DNI INSURANCE COVERAGE / FINANCIAL ISSUES:: DAMIR, SHANIQUE CURRENT HOME/COMMUNITY SERVICES/EQUIPMENT:: Currently Antonia has home health RN services 2x/week. She has canes that she does not use in the home, and states that she has grab bars in her bathroom. PRIMARY CARE PHYSICIAN:: Fran Self POTENTIAL DISCHARGE NEEDS:: F/U appointment with PCP. resume home health RN PATIENT/FAMILY EDUCATION NEEDS:: Review DC instructions, any limitations, and ongoing DC planning discussion. Discuss 'Ask Me Three' ANTICIPATED BARRIERS TO DISCHARGE:: None identified at this time TRANSPORTATION:: Via private vehicle with her daughter Orly PLAN:: Antonia will return home with continued home health RN services. She will F/U with PCP and plan of care as prescribed. Antonia's daughter Orly to transport when ready.
[2018-10-18] MEDS: Normal Saline 1,000 ML 75 ML IV ×2 (09:26→20:20)
[2018-10-18] MEDS: Normal Saline Flush 10 ML SYR IVP (09:27)
[2018-10-18] MEDS: cloNIDine 0.1 MG TAB PO ×2 (09:38→20:12)
[2018-10-18] MEDS: Metoprolol 25 MG TAB PO ×2 (09:38→20:13)
[2018-10-18] MEDS: hydrALAZINE 10 MG TAB PO ×2 (09:38→20:13)
[2018-10-18] MEDS: Apixaban 2.5 MG TAB PO ×2 (09:39→20:12)
[2018-10-18] MEDS: Docusate Sodium 100 MG CAP PO ×2 (09:39→20:12)
--- NOTE | 2018-10-18 10:45 | OT.INNT ---
Date of service: 10/18/18 Time of Service: 10:45 Occupational Therapy Notes 10/18/18 OT consult received and pts chart was reviewed. Per nursing pt is very dizzy today. OT will hold on consult for today and reassess pt tomorrow morning. Kamilah Noble OTR/[facility]
--- NOTE | 2018-10-18 11:47 | PT.INNT ---
Date of service: 10/18/18 Time of Service: 11:47 PT Notes Referral for physical therapy was received for this 83-year-old female but nursing requested to put patient on hold for PT evaluation due to increased complaints of left-sided head and neck pain along with dizziness with question of cerebrovascular accident. Will reassess patient tomorrow to determine need for skilled PT. Thank you very much for this referral. Suma Torres PT, DPT, CLT [facility]
[2018-10-18 13:36] LABS: Troponin I 0.04 ng/mL (0.00-0.06)
--- NOTE | 2018-10-18 14:53 | CHAPLAIN ---
Antonia and I remembered each other from her last admission. She lives in [place] with her daughter, who takes her nearly every day [place] visit her at [facility]. While Antonia is here, she said her grandson and greatcarrieon are visiting her and she knows he will enjoy those visits, so she is appreciative. Antonia's daughter works at night, so she sleeps part of the day also make the trip to [place] daily. Antonia was very pleasant and seems comfortable here.
--- NOTE | 2018-10-18 16:16 | PGE_ITS ---
Date of Service Date of service: 10/18/18 Time of Service: 08:10 Assessment and Plan (1) Strabismus: Current visit: Yes Status: Acute No further neurological workup. No suspicion for CVA at this time. (2) Acute kidney injury superimposed on chronic kidney disease: Current visit: Yes Status: Acute Improving. This appears to be due to a combination of interaction of torie-i and arb given concomittently, as well as dehydration due to increased dose of lasix. Continue IVF; Continue to hold diuresis, acei, arb. Continue to monitor Cr and respiratory status. (3) Hypercalcemia: Current visit: No Status: Acute Likely due to combination of dehydration and iatrogenic hypercalcemia. Continue IVF. May need to be on a combination of IVF and lasix. (4) PAF (paroxysmal atrial fibrillation): Current visit: No Status: Chronic Keep on tele tonight. 100% paced this morning. (5) Pulmonary hypertension: Current visit: No Status: Chronic Monitor respiratory status while hydrating. (6) Asthma: Current visit: No Status: Chronic Continue theophyline on hold. (7) Dehydration: Current visit: Yes Status: Acute gentle IVF (8) Ambulatory dysfunction: Current visit: Yes Status: Acute PT/OT (9) Dizziness: Current visit: Yes Status: Acute Hydrate. HOld torie-i/ARB. Monitor on tele to ensure no recurrence of AFib. (10) DVT prophylaxis: Current visit: No Status: Acute On therapeutic eliquis (11) Discharge planning issues: Current visit: No Status: Acute DNR/DNI PT/OT consulted Subjective Interval history since last seen: Called to bedside at 0810 because the patient had a new L eye deviation to the left. The patient stated this hadn't happened to her before. She also complained of L-sided headache and neck pain radiating down to her shoulder. Denied dizziness, chest pain, complained of her chronic shortness of breath, complains of slight nausea, but no vomiting. CT head was negative for a bleed. The patient's daughter Orly informed that the patient sometimes has a lazy eye; they were supposed to fix it during cataract surgery, but it didn't work or it didn't happen. NIH score during this was 2- the patient was trying to keep her eye closed, but did not truly have any facial weakness. Exam Narrative Exam Narrative: General: frail elderly female, mentally at her baseline, comfortable in bed Neuro: A&Ox2, L eye deviated to the left; keeps left eye closed, but able to open it, no pronatory drift, no sensory deficits, 5/5 strength throughout. NIH 2 Psych: appropriate speech pattern/content, bright affect Skin: no obvious bruising/lesions/bullae HEENT: atraumatic, normocephalic, EOMI, Dry MM, no goiter or JVD Heart: RRR, no m/r/g Lungs: CTAB GI: abdomen is soft, nontender, nondistended Extremities: no e/c/c BLE's, +1 B pedal pulses Objective Objective Clinical Data: Abnormal lab results 10/18/18 10/18/18 Range/Units 07:10 07:10 RBC 3.99 L (4.00-5.20) m/cumm Hgb 11.9 L (12.0-15.5) g/dL MCV 95.7 H (80-95) fL MCHC 31.2 L (32.0-36.0) g/dL RDW 17.0 H (11.7-14.6) % Absolute Lymphocytes 1.09 L (1.2-3.4) k/cumm Absolute Monocytes 0.71 H (0.11-0.7) k/cumm BUN 37 H (7-18) mg/dL Creatinine 2.35 H (0.55-1.02) mg/dL Calcium 11.1 H (8.5-10.1) mg/dL Vital Signs Temperature 36.4 C L 10/18/18 11:05 Temperature Source Tympanic 10/18/18 11:05 Pulse 63 10/18/18 15:00 Pulse Rhythm Regular 10/18/18 15:58 Pulse 69 10/17/18 17:31 Respiratory Rate 18 10/18/18 12:24 Respiratory Effort 10/18/18 15:58 Respiratory Depth Normal 10/18/18 15:58 Respiratory Pattern Normal 10/18/18 15:58 Blood Pressure 162/90 H 10/18/18 14:23 Blood Pressure Mean 68 10/17/18 17:30 Blood Pressure Position Sitting 10/17/18 11:35 Pulse Oximetry 96 10/18/18 12:24 Oxygen Delivery Method Room Air 10/18/18 12:24 Oxygen Flow Rate 0 10/18/18 12:24 Pain Level 8 10/18/18 16:10 Comment 10/18/18 08:10 Intake & Output 10/17/18 10/18/18 10/18/18 23:59 11:59 23:59 Intake Total 250 / 250 1300.00 / 1300.00 Output Total 300 / 300 300 / 300 Balance -50 / -50 1000.00 / 1000.00 Weight 53.269 kg 48.7 kg Intake: IV 250 / 250 1000.00 / 1000.00 Oral 300 / 300 Output: Urine 300 / 300 300 / 300 Other: Urine Color Yellow Urine Appearance Clear Clear Urine Odor None Voiding Methods Toilet # Voids 1 Laboratory Results WBC 6.98 k/cumm (4.4-10.8) 10/18/18 07:10 RBC 3.99 m/cumm (4.00-5.20) L 10/18/18 07:10 Hgb 11.9 g/dL (12.0-15.5) L 10/18/18 07:10 Hct 38.2 % (36.0-46.0) 10/18/18 07:10 MCV 95.7 fL (80-95) H 10/18/18 07:10 MCH 29.8 pg (27.0-33.0) 10/18/18 07:10 MCHC 31.2 g/dL (32.0-36.0) L 10/18/18 07:10 RDW 17.0 % (11.7-14.6) H 10/18/18 07:10 Plt Count 258 x1000/uL (130-400) 10/18/18 07:10 MPV 9.2 fL (8.0-11.0) 10/18/18 07:10 Immature Gran % 0.1 10/18/18 07:10 Neutrophils % 69.5 10/18/18 07:10 Lymphocytes % 15.6 10/18/18 07:10 Monocytes % 10.2 10/18/18 07:10 Eosinophils % 4.0 10/18/18 07:10 Basophils % 0.6 10/18/18 07:10 Absolute Neutrophils 4.85 k/cumm (1.2-6.7) 10/18/18 07:10 Absolute Lymphocytes 1.09 k/cumm (1.2-3.4) L 10/18/18 07:10 Absolute Monocytes 0.71 k/cumm (0.11-0.7) H 10/18/18 07:10 Absolute Eosinophils 0.28 k/cumm (0.0-0.7) 10/18/18 07:10 Absolute Basophils 0.04 k/cumm (0.0-0.2) 10/18/18 07:10 Differential Comment Diff reviewed 10/18/18 07:10 RBC Morphology Normal 10/18/18 07:10 Sodium 140 mmol/L (136-145) 10/18/18 07:10 Potassium 3.8 mmol/L (3.5-5.1) 10/18/18 07:10 Chloride 103 mmol/L (98-107) 10/18/18 07:10 Carbon Dioxide 28.6 mmol/L (21.0-32.0) 10/18/18 07:10 Anion Gap 8.4 mmol/L (3-11) 10/18/18 07:10 BUN 37 mg/dL (7-18) H 10/18/18 07:10 Creatinine 2.35 mg/dL (0.55-1.02) H 10/18/18 07:10 Estimated GFR/1.73 m2 19.80 (mL/min/1.73m2) 10/18/18 07:10 Glucose 92 mg/dL (70-100) 10/18/18 07:10 Calcium 11.1 mg/dL (8.5-10.1) H 10/18/18 07:10 Magnesium 1.9 mg/dL (1.8-2.4) 10/18/18 07:10 Total Bilirubin 0.6 mg/dL (0.2-1.0) 10/17/18 12:30 AST 22 U/L (15-37) 10/17/18 12:30 ALT 18 U/L (12-78) 10/17/18 12:30 Alkaline Phosphatase 61 U/L (46-116) 10/17/18 12:30 Troponin I 0.04 ng/mL (0.00-0.06) 10/18/18 07:10 NT-Pro-B Natriuret Pep 1640 pg/mL (-299) H 10/17/18 12:30 Total Protein 7.3 g/dL (6.4-8.2) 10/17/18 12:30 Albumin 3.4 g/dL (3.4-5.0) 10/17/18 12:30 Urine Color Yellow (Yellow) 10/17/18 13:56 Urine Clarity Clear 10/17/18 13:56 Urine pH 7.0 (5-8) 10/17/18 13:56 Ur Specific [place] 1.015 (1.005-1.025) 10/17/18 13:56 Urine Protein Negative mg/dL (Negative) 10/17/18 13:56 Urine Ketones Negative mg/dL (Negative) 10/17/18 13:56 Urine Blood Negative (Negative) 10/17/18 13:56 Urine Nitrite Negative (Negative) 10/17/18 13:56 Urine Bilirubin Negative (Negative) 10/17/18 13:56 Urine Urobilinogen 0.2 EU/dL (Up TO 0.2) 10/17/18 13:56 Ur Leukocyte Esterase Small (Negative) H 10/17/18 13:56 Urine RBC Not Applicable 10/17/18 13:56 Urine WBC 20-50 HPF (0-5) 10/17/18 13:56 Ur Epithelial Cells Many HPF (Negative) 10/17/18 13:56 Urine Crystals Negative HPF (Negative) 10/17/18 13:56 Urine Bacteria Few HPF (Negative) 10/17/18 13:56 Urine Mucus Negative (Negative) 10/17/18 13:56 Ur Culture Indicated? No/sq. contamination 10/17/18 13:56 Urine Glucose Negative mg/dL (Negative) 10/17/18 13:56 CT head without contrast: Negative head CT.
[2018-10-18] MEDS: traMADol 50 MG TAB 25 MG PO (18:31)
[2018-10-18 21:40] LABS: Theophylline 10.7 ug/mL (10.0-20.0)
[2018-10-19] VITALS (15 sets, daily range): BP systolic 165–199; BP diastolic 74–84; PULSE 60–76; RESP 16–20; TEMP 36.6–36.9; O2SAT 95–100
[2018-10-19] MEDS: Acetaminophen 325 MG TAB PO (01:43)
[2018-10-19] MEDS: traMADol 50 MG TAB 25 MG PO (03:03)
[2018-10-19 07:15] LABS: Abs Immature Grans 0.02 k/cumm (0.0-0.09); Absolute Basophil Count 0.04 k/cumm (0.0-0.2); Absolute Eosinophil Count 0.22 k/cumm (0.0-0.7); Absolute Lymphocyte Count 1.13 k/cumm (1.2-3.4); Absolute Monocyte Count 0.71 k/cumm (0.11-0.7); Absolute Neutrophil Count 4.82 k/cumm (1.2-6.7); Basophils % 0.6; Eosinophils % 3.2; HCT 38.2 % (36.0-46.0); HGB 11.9 g/dL (12.0-15.5); Immature Grans % 0.3; Lymphocytes % 16.3; Mean Corp. HGB Concentration 31.2 g/dL (32.0-36.0); Mean Corpuscular Hemoglobin 29.6 pg (27.0-33.0); Mean Platelet Volume 9.2 fL (8.0-11.0); Monocytes % 10.2; Neutrophils % 69.4; Platelet Count 253 x1000/uL (130-400); RBC 4.02 m/cumm (4.00-5.20); RBC Distribution Width 16.5 % (11.7-14.6); White Blood Cell Count 6.94 k/cumm (4.4-10.8)
[2018-10-19 07:51] LABS: Albumin 2.8 g/dL (3.4-5.0); Bilirubin, Total 0.4 mg/dL (0.2-1.0); Total Protein 6.6 g/dL (6.4-8.2)
[2018-10-19 07:52] LABS: ALT 14 U/L (12-78); AST 17 U/L (15-37); Alkaline Phosphatase 56 U/L (46-116); BUN 31 mg/dL (7-18); Bilirubin, Direct < 0.05 mg/dL (0.00-0.20); CREATININE 1.81 mg/dL (0.55-1.02); Calcium 10.4 mg/dL (8.5-10.1); Estimated GFR 26.77 (mL/min/1.73m2); Glucose 91 mg/dL (70-100)
[2018-10-19 07:53] LABS: Anion Gap 9.3 mmol/L (3-11); CO2 23.7 mmol/L (21.0-32.0); Chloride 103 mmol/L (98-107); Potassium 3.9 mmol/L (3.5-5.1); Sodium 136 mmol/L (136-145)
[2018-10-19] MEDS: Metoprolol 25 MG TAB PO ×2 (08:44→19:48)
[2018-10-19] MEDS: Apixaban 2.5 MG TAB PO ×2 (08:44→19:40)
[2018-10-19] MEDS: Docusate Sodium 100 MG CAP PO ×2 (08:44→19:57)
[2018-10-19] MEDS: cloNIDine 0.1 MG TAB PO ×2 (08:44→19:48)
[2018-10-19] MEDS: hydrALAZINE 10 MG TAB PO (08:44)
--- NOTE | 2018-10-19 08:52 | PDOC.CMPRO ---
- If Service Date Differs Date of service: 10/19/18 Time of Service: 08:52 Care Management Progress Note S/O: CM met with Antonia in her room she was sitting up in the recliner. She complains of dizziness and nausea when she moves her head and states she has been vomiting. Antonia remains inpatient concerns for post concussive nausea and vomiting versus Vertigo symptoms. She has a PT and OT consult. Her calcium has decreased, and her BUN an Cr have improved. She plans to return to her provider when she is medically ready for discharge. A: Antonia is a 83 year old female admitted with ZAFAR, hypercalcemia, and dehydration. Symptomatic dizziness, and ambulatory dysfunction. P:Antonia remains acute no change in status today. She continues to be monitored by Telemetry. She will return to her daughters when she is ready for discharge, follow up with primary care. CM to continue to provide support and ongoing discharge planning and education to Pt and family.
[2018-10-19] MEDS: Normal Saline 1,000 ML 75 ML IV (08:54)
[2018-10-19] MEDS: Furosemide 20 MG TAB PO (09:38)
[2018-10-19] MEDS: amLODIPine 5 MG TAB PO ×2 (11:16→17:10)
--- NOTE | 2018-10-19 12:48 | OTIE_ITS ---
Occupational Therapy Notes Inpatient Occupational Therapy Evaluation Date: 10/19/18 Referring Doctor:Constanza Schultz MD OT Orders: Eval and Treat Precautions: Standard PATIENT PROFILE/ADMITTING DIAGNOSIS: Pt is an 83 year old female who was admitted to [facility] for acute kidney injury. Past Medical History: Hypercalcemia (Chronic) CHF (congestive heart failure) (Chronic) Presence of permanent cardiac pacemaker (Chronic) PAF (paroxysmal atrial fibrillation) (Chronic) Hypertension (Chronic) Pulmonary hypertension (Chronic) Asthma (Chronic) CKD (chronic kidney disease) (Chronic) Chronic kidney disease (Acute) Asthma (Chronic) Atrial fibrillation (Chronic) CHF (congestive heart failure) (Chronic) COPD (chronic obstructive pulmonary disease) (Chronic) Depression (Chronic) HTN (hypertension) (Chronic) Surgical History History of thoracic aortic aneurysm repair (Chronic) AICD (automatic cardioverter/defibrillator) present (Acute) H/O thoracic aortic aneurysm repair (Acute) Pacemaker (Acute) Social History/Home Situation: Pt lives in a private home with her daughter, she is (I) with all ADLs/IADLs. She states that she does not drive. Her PCP had taken her license away and pt states that her daughter is her primary driving. Her lives in a residential and she visits him daily. Her daughter (A) with ADLs in the day and she sleeps on the first floor of her daughters home. She has stairs to enter the home but states that there are (B) railings and that she is able to perform them (I). Equipment owned/DME: [facility] SUBJECTIVE: Pt was sitting in bed when OT arrived. She notes that she is dizzy with any movement and has been vomiting this morning. OBJECTIVE: General Observation: IV (L) UE, O2 nasal cannula Mental Status: A&Ox3 Pain: no c/o pain ROM: RUE WFL L UE WFL STRENGTH: RUE 4+/5 throughout LUE 4+/5 throughout FUNCTIONAL MOBILITY/ADLS: Pt denies all ADLs/IADLs as she states that she is too dizzy to perform and that nursing has asked her to stay in bed d/t vomiting. Pt states that she does not need (A) with her ADLs as she is totally (I) and her daughter will (A) if needed. BALANCE: Static sitting Normal Dynamic Sitting Normal Static Standing Normal Dynamic Standing Normal SPECIAL TESTS: Daily Activity Limitations Standardized Measure [employer] AM -PAC ?6 clicks? Daily Activity Inpatient Short Form: Raw score: 22 Standardized score: 47.10 CMS score: 25.80% INFORMED CONSENT/EDUCATION: Pt instructed in purpose of OT Consult and plan of care. ASSESSMENT: Patient is a 83-year-old female referred to occupational therapy services with diagnosis of acute kidney injury. Patient presents with clinical signs and symptoms consistent with dx. Pt was seen for OT consult only. Pt states that any (A) she needs her daughter (A) her with and denies the need for OT services at this time. OT will formally discharge pt from skilled OT services. AMPAC score 22, CMS score 25.80% Patient is assessed as a Low [id number] complexity based on the following: History: See Above Examination: See Above Presentation: Evolving Decision Making: AMPAC score 22, CMS score 25.80% GOALS N/A PLAN OF CARE/TREATMENT PLAN: OT consult only DISCHARGE RECOMMENDATIONS Home with daughter when medically cleared per MD. TREATMENT TIME/MINUTES/CODES 75136, 15 minutes (08:05) Kamilah Noble OTR/[facility]
[2018-10-19] MEDS: hydrALAZINE 25 MG TAB PO ×2 (13:13→19:40)
[2018-10-19] MEDS: Meclizine 12.5 MG TAB PO (16:02)
--- NOTE | 2018-10-19 16:48 | PGE_ITS ---
Date of Service Date of service: 10/19/18 Time of Service: 16:45 Assessment and Plan (1) Hypertensive urgency: Current visit: Yes Status: Acute I added norvasc, increased clonidine, hydralazine, metoprolol. The patient has prn IV lopressor. (2) Dizziness: Current visit: Yes Status: Acute DDx: vertigo vs post-concussive syndrome vs Hypertensive urgency -patient started on meclizine, tighter BP control - continue to monitor on tele (3) Nausea & vomiting: Current visit: Yes Status: Acute See dizziness. Meclizine/zofran added (4) Strabismus: Current visit: Yes Status: Acute No further neurological workup. No suspicion for CVA at this time. (5) Acute kidney injury superimposed on chronic kidney disease: Current visit: Yes Status: Acute Improving. D/c IVF. Continue lasix. Monitor. (6) Hypercalcemia: Current visit: No Status: Acute Likely due to combination of dehydration and iatrogenic hypercalcemia. Lasix resumed. D/c IVF. (7) PAF (paroxysmal atrial fibrillation): Current visit: No Status: Chronic Keep on tele. 100% paced this morning. ICU nursing is raising concerns that there are pacer spikes out of place - very rarely. Will need outpatient pacer interrogation. (8) Pulmonary hypertension: Current visit: No Status: Chronic Appears asymptomatic. (9) Asthma: Current visit: No Status: Chronic Continue theophyline (10) Dehydration: Current visit: Yes Status: Acute Clinically resolved. (11) Ambulatory dysfunction: Current visit: Yes Status: Acute PT/OT (12) DVT prophylaxis: Current visit: No Status: Acute On therapeutic eliquis (13) Discharge planning issues: Current visit: No Status: Acute DNR/DNI PT/OT consulted - patient unable to participate due to nausea/vomiting. Subjective Interval history since last seen: Ms Win states she vomited 3 times today. She is not sure if dizziness and vomiting are correlated. She states she feels dizzy when she looks to the right and looks to the left. Denies chest pain, shortness of breath. Denies abdominal pain and constipation. States her last BM was this morning. Exam Narrative Exam Narrative: General: frail elderly female, sitting in a chair, vomits while talking to me Neuro: A&Ox2, L eye slightly deviated to the left, better than yesterday; no obvious nystagmus HEENT: atraumatic, normocephalic, EOMI, Dry MM, no goiter or JVD Heart: RRR, no m/r/g Lungs: CTAB GI: abdomen is soft, nontender, nondistended Extremities: no e/c/c BLE's, +1 B pedal pulses Objective Objective Clinical Data: Abnormal lab results 10/19/18 10/19/18 10/19/18 Range/Units 06:32 06:32 06:32 Hgb 11.9 L (12.0-15.5) g/dL MCHC 31.2 L (32.0-36.0) g/dL RDW 16.5 H (11.7-14.6) % Absolute Lymphocytes 1.13 L (1.2-3.4) k/cumm Absolute Monocytes 0.71 H (0.11-0.7) k/cumm BUN 31 H (7-18) mg/dL Creatinine 1.81 H (0.55-1.02) mg/dL Calcium 10.4 H (8.5-10.1) mg/dL Albumin 2.8 L (3.4-5.0) g/dL Vital Signs Temperature 36.6 C 10/19/18 16:13 Temperature Source Tympanic 10/19/18 16:13 Pulse 62 10/19/18 16:13 Pulse Rhythm Regular 10/19/18 08:10 Pulse 69 10/17/18 17:31 Respiratory Rate 20 10/19/18 16:13 Respiratory Effort Non-Labored 10/19/18 08:10 Respiratory Depth Normal 10/19/18 08:10 Respiratory Pattern Normal 10/19/18 08:10 Blood Pressure 189/81 H 10/19/18 16:13 Blood Pressure Mean 68 10/17/18 17:30 Blood Pressure Position Sitting 10/17/18 11:35 Pulse Oximetry 95 10/19/18 16:13 Oxygen Delivery Method Room Air 10/19/18 16:13 Oxygen Flow Rate 0 10/19/18 16:13 Pain Level 0 10/19/18 12:00 Comment 10/19/18 16:13 Intake & Output 10/18/18 10/19/18 10/19/18 23:59 11:59 23:59 Intake Total 1000 / 2300.00 1292.5 / 2092.5 800 / 2092.5 Output Total 350 / 650 800 / 800 Balance 650 / 1650.00 1292.5 / 1292.5 0 / 1292.5 Weight 48.9 kg Intake: IV 1000 / 1999.00 942.5 / 942.5 Oral 350 / 1150 800 / 1150 Output: Urine 350 / 650 800 / 800 Other: Urine Color Straw Yellow Urine Appearance Clear Clear Clear Urine Odor None Normal Comment mixed w stool Stool Size Small Stool Characteristics Soft Formed Brown Voiding Methods Toilet Toilet Bedside Commode Laboratory Results WBC 6.94 k/cumm (4.4-10.8) 10/19/18 06:32 RBC 4.02 m/cumm (4.00-5.20) 10/19/18 06:32 Hgb 11.9 g/dL (12.0-15.5) L 10/19/18 06:32 Hct 38.2 % (36.0-46.0) 10/19/18 06:32 MCV 95.0 fL (80-95) 10/19/18 06:32 MCH 29.6 pg (27.0-33.0) 10/19/18 06:32 MCHC 31.2 g/dL (32.0-36.0) L 10/19/18 06:32 RDW 16.5 % (11.7-14.6) H 10/19/18 06:32 Plt Count 253 x1000/uL (130-400) 10/19/18 06:32 MPV 9.2 fL (8.0-11.0) 10/19/18 06:32 Immature Gran % 0.3 10/19/18 06:32 Neutrophils % 69.4 10/19/18 06:32 Lymphocytes % 16.3 10/19/18 06:32 Monocytes % 10.2 10/19/18 06:32 Eosinophils % 3.2 10/19/18 06:32 Basophils % 0.6 10/19/18 06:32 Absolute Neutrophils 4.82 k/cumm (1.2-6.7) 10/19/18 06:32 Absolute Lymphocytes 1.13 k/cumm (1.2-3.4) L 10/19/18 06:32 Absolute Monocytes 0.71 k/cumm (0.11-0.7) H 10/19/18 06:32 Absolute Eosinophils 0.22 k/cumm (0.0-0.7) 10/19/18 06:32 Absolute Basophils 0.04 k/cumm (0.0-0.2) 10/19/18 06:32 Differential Comment Diff reviewed 10/18/18 07:10 RBC Morphology Normal 10/18/18 07:10 Sodium 136 mmol/L (136-145) 10/19/18 06:32 Potassium 3.9 mmol/L (3.5-5.1) 10/19/18 06:32 Chloride 103 mmol/L (98-107) 10/19/18 06:32 Carbon Dioxide 23.7 mmol/L (21.0-32.0) 10/19/18 06:32 Anion Gap 9.3 mmol/L (3-11) 10/19/18 06:32 BUN 31 mg/dL (7-18) H 10/19/18 06:32 Creatinine 1.81 mg/dL (0.55-1.02) H 10/19/18 06:32 Estimated GFR/1.73 m2 26.77 (mL/min/1.73m2) 10/19/18 06:32 Glucose 91 mg/dL (70-100) 10/19/18 06:32 Calcium 10.4 mg/dL (8.5-10.1) H 10/19/18 06:32 Magnesium 2.0 mg/dL (1.8-2.4) 10/19/18 06:32 Total Bilirubin 0.4 mg/dL (0.2-1.0) 10/19/18 06:32 Conjugated Bilirubin < 0.05 mg/dL (0.00-0.20) 10/19/18 06:32 AST 17 U/L (15-37) 10/19/18 06:32 ALT 14 U/L (12-78) 10/19/18 06:32 Alkaline Phosphatase 56 U/L (46-116) 10/19/18 06:32 Troponin I 0.04 ng/mL (0.00-0.06) 10/18/18 07:10 NT-Pro-B Natriuret Pep 1640 pg/mL (-299) H 10/17/18 12:30 Total Protein 6.6 g/dL (6.4-8.2) 10/19/18 06:32 Albumin 2.8 g/dL (3.4-5.0) L 10/19/18 06:32 Urine Color Yellow (Yellow) 10/17/18 13:56 Urine Clarity Clear 10/17/18 13:56 Urine pH 7.0 (5-8) 10/17/18 13:56 Ur Specific Timpson 1.015 (1.005-1.025) 10/17/18 13:56 Urine Protein Negative mg/dL (Negative) 10/17/18 13:56 Urine Ketones Negative mg/dL (Negative) 10/17/18 13:56 Urine Blood Negative (Negative) 10/17/18 13:56 Urine Nitrite Negative (Negative) 10/17/18 13:56 Urine Bilirubin Negative (Negative) 10/17/18 13:56 Urine Urobilinogen 0.2 EU/dL (Up TO 0.2) 10/17/18 13:56 Ur Leukocyte Esterase Small (Negative) H 10/17/18 13:56 Urine RBC Not Applicable 10/17/18 13:56 Urine WBC 20-50 HPF (0-5) 10/17/18 13:56 Ur Epithelial Cells Many HPF (Negative) 10/17/18 13:56 Urine Crystals Negative HPF (Negative) 10/17/18 13:56 Urine Bacteria Few HPF (Negative) 10/17/18 13:56 Urine Mucus Negative (Negative) 10/17/18 13:56 Ur Culture Indicated? No/sq. contamination 10/17/18 13:56 Urine Glucose Negative mg/dL (Negative) 10/17/18 13:56 Theophylline 10.7 ug/ml (10.0-20.0) 10/18/18 07:10
--- NOTE | 2018-10-19 16:53 | PT.INIE ---
Date of service: 10/19/18 Time of Service: 16:53 PT Notes Inpatient Physical Therapy Evaluation Date: 10/19/2018 Referring Doctor: Constanza Schultz MD PT Orders: PT CONSULT: Eval/treat Precautions: Fall. Standard. Patient Profile/Admitting Diagnosis: Orders received for this 84 female who presented to the ED on 10/17/2018 with chief complaints of left temporal headache sustained from a fall, nausea, dizziness, fatigue, and weakness for the past 5 days. Patient was diagnosed with acute kidney injury, hypercalcemia, dehydration, ambulatory dysfunction, and dizziness. Cranial CT scan revealed negative for fracture and intracranial hemorrhage: cervical spine CT was negative as well for fracture/dislocation. Patient received skilled physical therapy services from 09/02/2018 through 09/12/2018 for generalized weakness resulting from a pneumonia and was discontinued being independent with all bed mobility, transfers, and ambulation of 30 feet x 5 without the need for an assistive device. PMHX: Medical History Hypercalcemia (Chronic) CHF (congestive heart failure) (Chronic) Presence of permanent cardiac pacemaker (Chronic) PAF (paroxysmal atrial fibrillation) (Chronic) Hypertension (Chronic) Pulmonary hypertension (Chronic) Asthma (Chronic) CKD (chronic kidney disease) (Chronic) Chronic kidney disease (Acute) Asthma (Chronic) Atrial fibrillation (Chronic) CHF (congestive heart failure) (Chronic) COPD (chronic obstructive pulmonary disease) (Chronic) Depression (Chronic) HTN (hypertension) (Chronic) Surgical History History of thoracic aortic aneurysm repair (Chronic) AICD (automatic cardioverter/defibrillator) present (Acute) H/O thoracic aortic aneurysm repair (Acute) Pacemaker (Acute) Social History/Home Situation: Patient was discontinued from skilled PT services on 09/12/2018 being independent with all bed mobility, transfers and ambulation performance of up to 30 feet x 5 using no assistive device. Per case management notes, Antonia resides with her daughter Orly in [place], [place] she has a room on ground level and two steps into her home. Her , Adolfo resides at [facility] in [place], [place]. Antonia sees him almost daily and reports he suffers from advanced dementia and currently believes he is living on the farm he grew up on at [age] years old. Antonia is normally independent, no DME and no services. Antonia does not drive and shares that Fran Self recommended she no longer drive though this bothers her much as she has to depend on her daughter to transport her to [place] daily. Antonia shares that her and Adolfo spent [place] in [place] since 1981 and traveled around in [place] prior to settling with their daughter so Adolfo could recieve rat exterminator care for his progressing illness. Antonia reports that she has two other daughters and a son whom reside in [place] all of whom are supportive. Equipment Owned/DME: None Subjective: Patient reports that she just had 3 episodes of vomiting right before this PT came in for a physical therapy evaluation. She states that her frontal area and the left side of her head is still sore from the fall. She declined any standing activity today as she reports that she is significantly dizzy. She is agreeable to delaying ambulation activity once her dizziness resolves. Objective: Patient is reclined on her recliner. IV in the left UE. Emesis bag on hand. Mental Status: Alert and oriented x 4 Pain: Patient complains of mild pain on frontal and left side of her head and neck ROM: Right Upper Extremity: Shoulder Flexion WFL. Shoulder abduction WFL. Elbow flexion WFL. Wrist flexion WFL. Functional opening and closing of hand WFL. Left Upper Extremity: Shoulder Flexion WFL. Shoulder abduction WFL. Elbow flexion WFL. Wrist flexion WFL. Functional opening and closing of hand WFL. Right Lower Extremity: Hip flexion WFL. Hip abduction WFL. Knee flexion WFL. Ankle dorsiflexion WFL. Ankle plantarflexion WFL. Left Lower Extremity: Hip flexion WFL. Hip abduction WFL. Knee flexion WFL. Ankle dorsiflexion WFL. Ankle plantarflexion WFL. Strength: Right Upper Extremity: Shoulder flexors 4-/5. Shoulder abductors 4-/5. Elbow flexors 4-/5. Elbow extensors 4-/5. Communication Professor strong. Left Upper Extremity: Shoulder flexors 4/5. Shoulder abductors 4/5. Elbow flexors 4/5. Elbow extensors 4/5. Communication Professor strong. Right Lower Extremity: Hip flexors 3+/5. Hip abductors 3+/5. Knee flexors 3+/5. Knee extensors 3+/5. Ankle dorsiflexors 4-/5. Ankle plantarflexors 4-/5. Left Lower Extremity:Hip flexors 3+/5. Hip abductors 3+/5. Knee flexors 3+/5. Knee extensors 3+/5. Ankle dorsiflexors 4-/5. Ankle plantarflexors 4-/5. Bed Mobility/Transfers: Supine to sit minimal assist Sit to supine minimal assist Sit to stand NT Stand to sit NT Bed to chair NT Chair to bed NT Gait: NT. Patient continues to report significant dizziness with head movements and would not want to get out of her chair. Dr. Schultz will order Zofran to minimize limiting effects of dizziness and potentially allow maximum participation with functional mobility training with PT. Balance: Static Sitting: Poor Dynamic Sitting: Poor Static Standing: NT Dynamic Standing: Nt Special Tests: Mobility Limitations Standardized Measure [facility] AM-PAC 6 clicks Basic Mobility Inpatient Short Form: Raw Score: 12 CMS Score: 69% deficit Informed Consent/Education: Patient instructed in purpose of PT consult and plan of care. Patient was was advised that PT sessions will be coordinated with administration of anti-dizziness medication in order to maximize participation in therapy sessions. Patient is agreeable to a special test to determine contributory factors to reports of dizziness. Assessment: Patient is an 84-year-old female who was diagnosed with acute kidney injury, hypercalcemia, dehydration, ambulatory dysfunction, and dizziness.Patient presents with clinical signs and symptoms consistent with current/admitting diagnoses that have resulted to mobility limitations, gait instability, generalized weakness, and impairment of motor control as demonstrated by the following impairment level findings: 1. Decreased strength to B LE major muscle groups 2. Impaired sitting/standing balance 3. Impaired activity tolerance 4. Report of dizziness limiting participation and mobility retraining Impairments are contributing to the following functional limitations: 1. Dependent bed mobility skills 2. Increased dependence with transfers 3. Inability to safely ambulate without assistive device and physical assistance 4. Increase completion time for mobility ADL performance 5. Increased fall risk 6. Inability to negotiate steps alone safely Patient is assessed as a 57315 moderate complexity based on the following: History: Cognitively intact female patient with premorbid independent mobility level now with apparent functional mobility decline and generalized weakness which have currently increased risk for falls and decreased ability of patient to return home Examination: Underlying impairments and functional limitations as noted above Presentation:Evolving Decision Makin moderate complexity Patient will benefit from skilled therapy intervention in order to remedy their functional limitations and restore patient to a more appropriate and stable functional level. Goals X1 week 1. Supine-Sit independent 2. Sit-Supine independent 3. Sit-Stand independent 4. Stand-Sit independent 5. Bed-Chair independent 6. Chair-Bed independent 7. Independent gait on level surface with use of least restrictive device/without assistive device for at least 50 feet without report of pain nor dyspnea 8. Independent stair negotiation while holding onto bilateral rails for at least 5 steps without report of pain nor dyspnea 9. Independent with home exercise program 10. Good static and dynamic standing balance/tolerance Plan of Care/Treatment Plan: 1-2x/day, 7 days/week x 1 week. Plan of care has been reviewed with the COMMUNITY SERVICE MANAGER providing the service under Physical Therapy direction. Initiate Physical Therapy intervention for strengthening, bed mobility, transfers, gait, stairs, balance training, use of assistive device. DISCHARGE RECOMMENDATIONS: Patient will benefit from home health PT services in order to progress mobility level using least restrictive assistive ambulatory device/using no device, assess home safety, identify additional equipment needs, and establish a functional maintenance program that will increase ability of patient to remain at home. TREATMENT CODE/TIME: 01983 x 30 minutes beginning at 16:19 p.m. Thank you very much for this referral. Suma Torres PT, DPT, CLT [facility]
--- NOTE | 2018-10-19 16:56 | IN_ITS ---
Date of service: 10/19/18 Time of Service: 16:53 PT Notes Inpatient Physical Therapy Evaluation Date: 10/19/2018 Referring Doctor: Constanza Schultz MD PT Orders: PT CONSULT: Eval/treat Precautions: Fall. Standard. Patient Profile/Admitting Diagnosis: Orders received for this 84 female who presented to the ED on 10/17/2018 with chief complaints of left temporal headache sustained from a fall, nausea, dizziness, fatigue, and weakness for the past 5 days. Patient was diagnosed with acute kidney injury, hypercalcemia, dehydration, ambulatory dysfunction, and dizziness. Cranial CT scan revealed negative for fracture and intracranial hemorrhage: cervical spine CT was negative as well for fracture/dislocation. Patient received skilled physical therapy services from 09/02/2018 through 09/12/2018 for generalized weakness resulting from a pneumonia and was discontinued being independent with all bed mobility, transfers, and ambulation of 30 feet x 5 without the need for an assistive device. PMHX: Medical History Hypercalcemia (Chronic) CHF (congestive heart failure) (Chronic) Presence of permanent cardiac pacemaker (Chronic) PAF (paroxysmal atrial fibrillation) (Chronic) Hypertension (Chronic) Pulmonary hypertension (Chronic) Asthma (Chronic) CKD (chronic kidney disease) (Chronic) Chronic kidney disease (Acute) Asthma (Chronic) Atrial fibrillation (Chronic) CHF (congestive heart failure) (Chronic) COPD (chronic obstructive pulmonary disease) (Chronic) Depression (Chronic) HTN (hypertension) (Chronic) Surgical History History of thoracic aortic aneurysm repair (Chronic) AICD (automatic cardioverter/defibrillator) present (Acute) H/O thoracic aortic aneurysm repair (Acute) Pacemaker (Acute) Social History/Home Situation: Patient was discontinued from skilled PT services on 09/12/2018 being independent with all bed mobility, transfers and ambulation performance of up to 30 feet x 5 using no assistive device. Per case management notes, Antonia resides with her daughter Orly in [place], [place] she has a room on ground level and two steps into her home. Her , Adolfo resides at [facility] in [place], [place]. Antonia sees him almost daily and reports he suffers from advanced dementia and currently believes he is living on the farm he grew up on at [age] years old. Antonia is normally independent, no DME and no services. Antonia does not drive and shares that Fran Self recommended she no longer drive though this bothers her much as she has to depend on her daughter to transport her to [place] daily. 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 Antonia reports that she has two other daughters and a son whom reside in [place] all of whom are supportive. Equipment Owned/DME: None Subjective: Patient reports that she just had 3 episodes of vomiting right before this PT came in for a physical therapy evaluation. She states that her frontal area and the left side of her head is still sore from the fall. She declined any standing activity today as she reports that she is significantly dizzy. She is agreeable to delaying ambulation activity once her dizziness resolves. Objective: Patient is reclined on her recliner. IV in the left UE. Emesis bag on hand. Mental Status: Alert and oriented x 4 Pain: Patient complains of mild pain on frontal and left side of her head and neck ROM: Right Upper Extremity: Shoulder Flexion WFL. Shoulder abduction WFL. Elbow flexion WFL. Wrist flexion WFL. Functional opening and closing of hand WFL. Left Upper Extremity: Shoulder Flexion WFL. Shoulder abduction WFL. Elbow flexion WFL. Wrist flexion WFL. Functional opening and closing of hand WFL. Right Lower Extremity: Hip flexion WFL. Hip abduction WFL. Knee flexion WFL. Ankle dorsiflexion WFL. Ankle plantarflexion WFL. Left Lower Extremity: Hip flexion WFL. Hip abduction WFL. Knee flexion WFL. Ankle dorsiflexion WFL. Ankle plantarflexion WFL. Strength: Right Upper Extremity: Shoulder flexors 4-/5. Shoulder abductors 4-/5. Elbow flexors 4-/5. Elbow extensors 4-/5. Fruit Loader strong. Left Upper Extremity: Shoulder flexors 4/5. Shoulder abductors 4/5. Elbow flexors 4/5. Elbow extensors 4/5. Fruit Loader strong. Right Lower Extremity: Hip flexors 3+/5. Hip abductors 3+/5. Knee flexors 3+/5. Knee extensors 3+/5. Ankle dorsiflexors 4-/5. Ankle plantarflexors 4-/5. Left Lower Extremity:Hip flexors 3+/5. Hip abductors 3+/5. Knee flexors 3+/5. Knee extensors 3+/5. Ankle dorsiflexors 4-/5. Ankle plantarflexors 4-/5. Bed Mobility/Transfers: Supine to sit minimal assist Sit to supine minimal assist Sit to stand NT Stand to sit NT Bed to chair NT Chair to bed NT Gait: NT. Patient continues to report significant dizziness with head movements and would not want to get out of her chair. Dr. Schultz will order Zofran to minimize limiting effects of dizziness and potentially allow maximum participation with functional mobility training with PT. Balance: Static Sitting: Poor Dynamic Sitting: Poor Static Standing: NT Dynamic Standing: Nt Special Tests: Mobility Limitations Standardized Measure [facility] AM-PAC 6 clicks Basic Mobility Inpatient Short Form: Raw Score: 12 CMS Score: 69% deficit Informed Consent/Education: Patient instructed in purpose of PT consult and plan of care. Patient was was advised that PT sessions will be coordinated with administration of anti-dizziness medication in order to maximize participation in therapy sessions. Patient is agreeable to a special test to determine contributory factors to reports of dizziness. Assessment: Patient is an 84-year-old female who was diagnosed with acute kidney injury, hypercalcemia, dehydration, ambulatory dysfunction, and dizziness.Patient presents with clinical signs and symptoms consistent with current/admitting diagnoses that have resulted to mobility limitations, gait instability, generalized weakness, and impairment of motor control as demo nstrated by the following impairment level findings: 1. Decreased strength to B LE major muscle groups 2. Impaired sitting/standing balance 3. Impaired activity tolerance 4. Report of dizziness limiting participation and mobility retraining Impairments are contributing to the following functional limitations: 1. Dependent bed mobility skills 2. Increased dependence with transfers 3. Inability to safely ambulate without assistive device and physical assistance 4. Increase completion time for mobility ADL performance 5. Increased fall risk 6. Inability to negotiate steps alone safely Patient is assessed as a 05736 moderate complexity based on the following: History: Cognitively intact female patient with premorbid independent mobility level now with apparent functional mobility decline and generalized weakness which have currently increased risk for falls and decreased ability of patient to return home Examination: Underlying impairments and functional limitations as noted above Presentation:Evolving Decision Makin moderate complexity Patient will benefit from skilled therapy intervention in order to remedy their functional limitations and restore patient to a more appropriate and stable functional level. Goals X1 week 1. Supine-Sit independent 2. Sit-Supine independent 3. Sit-Stand independent 4. Stand-Sit independent 5. Bed-Chair independent 6. Chair-Bed independent 7. Independent gait on level surface with use of least restrictive device/without assistive device for at least 50 feet without report of pain nor dyspnea 8. Independent stair negotiation while holding onto bilateral rails for at least 5 steps without report of pain nor dyspnea 9. Independent with home exercise program 10. Good static and dynamic standing balance/tolerance Plan of Care/Treatment Plan: 1-2x/day, 7 days/week x 1 week. Plan of care has been reviewed with the MELT SUPERVISOR providing the service under Physical Therapy direction. Initiate Physical Therapy intervention for strengthening, bed mobility, transfers, gait, stairs, balance training, use of assistive device. DISCHARGE RECOMMENDATIONS: Patient will benefit from home health PT services in order to progress mobility level using least restrictive assistive ambulatory device/using no device, assess home safety, identify additional equipment needs, and establish a functional maintenance program that will increase ability of patient to remain at home. TREATMENT CODE/TIME: 16910 x 30 minutes beginning at 16:19 p.m. Thank you very much for this referral. Suam Torres PT, DPT, CLT [facility]
[2018-10-19] MEDS: Ondansetron 4 MG/2 ML VIAL IVP (17:05)
[2018-10-19] MEDS: Prochlorperazine 10 MG/2 ML VIAL IM (19:39)
[2018-10-20] VITALS (11 sets, daily range): BP systolic 99–154; BP diastolic 59–84; PULSE 60–85; RESP 14–20; TEMP 36.3–37.1; O2SAT 92–98
[2018-10-20] MEDS: Ondansetron 4 MG/2 ML VIAL IVP (00:21)
[2018-10-20] MEDS: Normal Saline Flush 10 ML SYR IVP ×2 (00:22→08:27)
[2018-10-20 07:16] LABS: Anion Gap 9.1 mmol/L (3-11); BUN 18 mg/dL (7-18); CO2 25.9 mmol/L (21.0-32.0); Calcium 10.1 mg/dL (8.5-10.1); Chloride 100 mmol/L (98-107); Estimated GFR 39.21 (mL/min/1.73m2); Glucose 101 mg/dL (70-100); Magnesium 1.6 mg/dL (1.8-2.4); Potassium 3.7 mmol/L (3.5-5.1); Sodium 135 mmol/L (136-145)
[2018-10-20] MEDS: Apixaban 2.5 MG TAB PO ×2 (08:27→20:02)
[2018-10-20] MEDS: Furosemide 20 MG TAB PO (08:27)
[2018-10-20] MEDS: hydrALAZINE 25 MG TAB PO (08:27)
[2018-10-20] MEDS: cloNIDine 0.1 MG TAB PO ×2 (08:27→20:02)
[2018-10-20] MEDS: amLODIPine 5 MG TAB PO (08:27)
[2018-10-20] MEDS: Docusate Sodium 100 MG CAP PO ×2 (08:27→20:01)
[2018-10-20] MEDS: Metoprolol 25 MG TAB PO ×2 (08:27→20:02)
[2018-10-20] MEDS: MAGNESIUM SULFATE 2 GM/50 ML BAG IVPB (09:20)
--- NOTE | 2018-10-20 12:01 | PGE_ITS ---
Date of Service Date of service: 10/20/18 Time of Service: 11:57 Assessment and Plan (1) Hypertensive urgency: Current visit: Yes Status: Resolved BP is too tightly controlled at this point. We will back off some of the antihypertensives. Continue norvasc, decrease clonidine and hydralazine, put holding parameters on metoprolol. (2) Dizziness: Current visit: Yes Status: Acute After further research, it appears that the one medication change that occured almost immediately before the onset of symptoms is the initiation of dapsone by dermatology as outpatient on 10/10. Headache, dizziness, nausea, and vomiting are all side effects of dapsone tx. Dapsone has been on hold since admission for that reason. Symptoms are appropriately better now that the patient has had enough time for it to wash out. It is possible that there is also a component of hypertensive urgency (now resolved) as well as post-concussive syndrome or a migraine. D/c meclizine. Keep on tele one more night as BP is changing drastically and medications are getting adjusted, in addition to the pacer malfunction. (3) Nausea & vomiting: Current visit: Yes Status: Acute See above. Better with time for dapsone washout as well as with compazine. (4) Malfunction of cardiac pacemaker: Current visit: Yes Status: Acute Per [facility] cardiology, atrial undersensing in this patient is harmless. Dr Senior reviewed the strips. The patient is to follow up as outpatient for pacer interrogation and reporgramming to adjust atrial sensitivity. Keep on tele for now. (5) Strabismus: Current visit: Yes Status: Acute No further neurological workup. No suspicion for CVA at this time. (6) Acute kidney injury superimposed on chronic kidney disease: Current visit: Yes Status: Resolved Resolved. Happened due to 1) dehydration due to excessive diuresis (lasix had just been increased to 40 mg PO daily as outpatient) 2) co-administration of Serge-i and ARB Off IVF, tolerating diuresis. Both serge-i and ARB are on hold. (7) Hypercalcemia: Current visit: No Status: Acute Improved. Likely due to combination of dehydration and iatrogenic hypercalcemia. Continue lasix. Monitor Ca. No calcium supplements on discharge. (8) PAF (paroxysmal atrial fibrillation): Current visit: No Status: Chronic Keep on tele. Pacer is undersensing - will need reprogramming as outpatient. Per Dr Senior of [facility] cardiology, this is harmless. Appointment is being made for pacer interrogation/adjusting atrial sensitivity. (9) Pulmonary hypertension: Current visit: No Status: Chronic Appears asymptomatic. (10) Asthma: Current visit: No Status: Chronic Continue theophyline (11) Dehydration: Current visit: Yes Status: Acute Clinically resolved. (12) Ambulatory dysfunction: Current visit: Yes Status: Acute PT/OT (13) DVT prophylaxis: Current visit: No Status: Acute On therapeutic eliquis (14) Discharge planning issues: Current visit: No Status: Acute DNR/DNI PT/OT consulted - if patient is able to participate today, hopefully can be discharged home tomorrow. Subjective Interval history since last seen: Ms Wni feels better after receiving compazine last night. Her headache is gone. Her nausea and vomiting are gone. She still reports some left neck pain. Her dizziness is a lot better today, but still somewhat present when she looks to the side. She denies chest pain, shortness of breath, abdominal pain. On telemetry, her pacer does not seem to be sensing every P wave. I discussed the case with Dr Senior of electrophysiology at [facility]. He agrees that the pacer is undersensing. Because the atrium is depolarized the few times that the pacer has misfired, it is a harmless rhythm and causes no symptoms. Interestingly, sometimes this gets better when hypercalcemia is corrected. This does require that the pacer be reprogrammed and atrial sensitivity needs to be changed, but this is not an emergent intervention and can be done as outpatient. We are going to arrange an appointment for this. Exam Narrative Exam Narrative: General: frail elderly female, sitting in a chair, asleep, easily arousable, looks more tired than yesterday, but at the same time better, and she is not guarding her head as much. Neuro: A&Ox2, L eye slightly deviated to the left still, about the same as yesterday, no nystagmus observed. HEENT: atraumatic, normocephalic, EOMI, MMM, no goiter or JVD Heart: RRR, no m/r/g Lungs: CTAB GI: abdomen is soft, nontender, nondistended Extremities: no e/c/c BLE's, +1 B pedal pulses Objective Objective Clinical Data: Abnormal lab results 10/20/18 Range/Units 06:50 Sodium 135 L (136-145) mmol/L Creatinine 1.30 H D (0.55-1.02) mg/dL Glucose 101 H (70-100) mg/dL Magnesium 1.6 L (1.8-2.4) mg/dL Vital Signs Temperature 37.1 C 10/20/18 07:10 Temperature Source Tympanic 10/20/18 07:10 Pulse 83 10/20/18 07:10 Pulse Rhythm Regular 10/19/18 20:07 Pulse 69 10/17/18 17:31 Respiratory Rate 18 10/20/18 07:10 Respiratory Effort 10/19/18 20:07 Respiratory Depth Normal 10/19/18 20:07 Respiratory Pattern Normal 10/19/18 20:07 Blood Pressure 134/75 10/20/18 07:10 Blood Pressure Mean 68 10/17/18 17:30 Blood Pressure Position Sitting 10/17/18 11:35 Pulse Oximetry 93 L 10/20/18 07:10 Oxygen Delivery Method Room Air 10/20/18 07:10 Oxygen Flow Rate 0 10/20/18 07:10 Pain Level 5 10/20/18 07:10 Comment 10/20/18 00:15 Intake & Output 10/19/18 10/19/18 10/20/18 11:59 23:59 11:59 Intake Total 1292.5 / 2947.5 1655 / 2947.5 1050 / 1050 Output Total 1700 / 1700 2500 / 2500 Balance 1292.5 / 1247.5 -45 / 1247.5 -1450 / -1450 Weight 48.9 kg 51.7 kg Intake: IV 942.5 / 1557.5 615 / 1557.5 Oral 350 / 1390 1040 / 1390 1050 / 1050 Output: Urine 1700 / 1700 2500 / 2500 Other: Urine Color Pale Yellow Yellow Urine Appearance Clear Clear Clear Urine Odor None None Comment mixed w stool Stool Size Small Stool Characteristics Soft Formed Brown Voiding Methods Toilet Bedside Commode Bedside Commode Laboratory Results WBC 6.94 k/cumm (4.4-10.8) 10/19/18 06:32 RBC 4.02 m/cumm (4.00-5.20) 10/19/18 06:32 Hgb 11.9 g/dL (12.0-15.5) L 10/19/18 06:32 Hct 38.2 % (36.0-46.0) 10/19/18 06:32 MCV 95.0 fL (80-95) 10/19/18 06:32 MCH 29.6 pg (27.0-33.0) 10/19/18 06:32 MCHC 31.2 g/dL (32.0-36.0) L 10/19/18 06:32 RDW 16.5 % (11.7-14.6) H 10/19/18 06:32 Plt Count 253 x1000/uL (130-400) 10/19/18 06:32 MPV 9.2 fL (8.0-11.0) 10/19/18 06:32 Immature Gran % 0.3 10/19/18 06:32 Neutrophils % 69.4 10/19/18 06:32 Lymphocytes % 16.3 10/19/18 06:32 Monocytes % 10.2 10/19/18 06:32 Eosinophils % 3.2 10/19/18 06:32 Basophils % 0.6 10/19/18 06:32 Absolute Neutrophils 4.82 k/cumm (1.2-6.7) 10/19/18 06:32 Absolute Lymphocytes 1.13 k/cumm (1.2-3.4) L 10/19/18 06:32 Absolute Monocytes 0.71 k/cumm (0.11-0.7) H 10/19/18 06:32 Absolute Eosinophils 0.22 k/cumm (0.0-0.7) 10/19/18 06:32 Absolute Basophils 0.04 k/cumm (0.0-0.2) 10/19/18 06:32 Differential Comment Diff reviewed 10/18/18 07:10 RBC Morphology Normal 10/18/18 07:10 Sodium 135 mmol/L (136-145) L 10/20/18 06:50 Potassium 3.7 mmol/L (3.5-5.1) 10/20/18 06:50 Chloride 100 mmol/L (98-107) 10/20/18 06:50 Carbon Dioxide 25.9 mmol/L (21.0-32.0) 10/20/18 06:50 Anion Gap 9.1 mmol/L (3-11) 10/20/18 06:50 BUN 18 mg/dL (7-18) D 10/20/18 06:50 Creatinine 1.30 mg/dL (0.55-1.02) H D 10/20/18 06:50 Estimated GFR/1.73 m2 39.21 (mL/min/1.73m2) 10/20/18 06:50 Glucose 101 mg/dL (70-100) H 10/20/18 06:50 Calcium 10.1 mg/dL (8.5-10.1) 10/20/18 06:50 Magnesium 1.6 mg/dL (1.8-2.4) L 10/20/18 06:50 Total Bilirubin 0.4 mg/dL (0.2-1.0) 10/19/18 06:32 Conjugated Bilirubin < 0.05 mg/dL (0.00-0.20) 10/19/18 06:32 AST 17 U/L (15-37) 10/19/18 06:32 ALT 14 U/L (12-78) 10/19/18 06:32 Alkaline Phosphatase 56 U/L (46-116) 10/19/18 06:32 Troponin I 0.04 ng/mL (0.00-0.06) 10/18/18 07:10 NT-Pro-B Natriuret Pep 1640 pg/mL (-299) H 10/17/18 12:30 Total Protein 6.6 g/dL (6.4-8.2) 10/19/18 06:32 Albumin 2.8 g/dL (3.4-5.0) L 10/19/18 06:32 Urine Color Yellow (Yellow) 10/17/18 13:56 Urine Clarity Clear 10/17/18 13:56 Urine pH 7.0 (5-8) 10/17/18 13:56 Ur Specific [place] 1.015 (1.005-1.025) 10/17/18 13:56 Urine Protein Negative mg/dL (Negative) 10/17/18 13:56 Urine Ketones Negative mg/dL (Negative) 10/17/18 13:56 Urine Blood Negative (Negative) 10/17/18 13:56 Urine Nitrite Negative (Negative) 10/17/18 13:56 Urine Bilirubin Negative (Negative) 10/17/18 13:56 Urine Urobilinogen 0.2 EU/dL (Up TO 0.2) 10/17/18 13:56 Ur Leukocyte Esterase Small (Negative) H 10/17/18 13:56 Urine RBC Not Applicable 10/17/18 13:56 Urine WBC 20-50 HPF (0-5) 10/17/18 13:56 Ur Epithelial Cells Many HPF (Negative) 10/17/18 13:56 Urine Crystals Negative HPF (Negative) 10/17/18 13:56 Urine Bacteria Few HPF (Negative) 10/17/18 13:56 Urine Mucus Negative (Negative) 10/17/18 13:56 Ur Culture Indicated? No/sq. contamination 10/17/18 13:56 Urine Glucose Negative mg/dL (Negative) 10/17/18 13:56 Theophylline 10.7 ug/ml (10.0-20.0) 10/18/18 07:10
[2018-10-20] MEDS: hydrALAZINE 10 MG TAB PO ×2 (14:10→20:02)
--- NOTE | 2018-10-20 16:11 | PDOC.CMPRO ---
- If Service Date Differs Date of service: 10/20/18 Time of Service: 16:11 Care Management Progress Note S/O: Antonia remains inpatient concerns for post concussive nausea and vomiting versus medication side effects. PT and OT continue to consult. Her calcium has decreased, and her BUN an Cr have improved. She plans to return home with her daughter when she is medically ready for discharge. She continues to be monitored on telemetry for Bradycardia. Medication are being adjusted to limit the dizzy spells and the nausea. She is being treated with Compazine which appears to have improved her symptoms. A: Antonia is a 83 year old female admitted with ZAFAR, hypercalcemia, and dehydration. Symptomatic dizziness, and ambulatory dysfunction. P:Antonia remains acute no change in status today. She continues to be monitored by Telemetry. She will return to her daughters when she is ready for discharge, follow up with primary care. CM to continue to provide support and ongoing discharge planning and education to Pt and family.
--- NOTE | 2018-10-20 17:20 | PHARADMIT ---
Addendum entered by Navin Mayes III 10/22/18 14:25: Pharmacy Note Subjective PATIENT CONTINUES WITH DIZZINESS & VOMITING WHEN SHE MOVES HER HEAD. MD HAS ASKED PT TO EVALUATE WITH HOPES OF FINDING A SOLUTION (? Hallpike maneuver). Objective VS-OK Na-130 SCr-1.43 H&H,Plts,WBC-OK Assessment Apixaban for DVT proph, Prep-H for hemorrhoids Blood spotting Plan No new MD note yet Addendum entered by Navin Mayes III 10/21/18 12:14: Pharmacy Note Subjective Patient's main complaint of dizziness continues. Meclizine helped Also has pacemaker issues which will be dealt with by [facility] as outpatient. Calcium was noted as high Objective VS-ok Na-132, K+3.6 SCr-1.53 H&H,Plts-OK Wgt-52.7 Reg BMs Assessment BP MEDS ADJUSTED, NORVASC DC'D, HYDRALAZINE & CLONIDINE REDUCED, LOPRESSOR ADDED Plan Continue to monitor after medication adjustments Original Note: Admission Pharmacy Clinical Review hypercalcemia, regi on ckd Code Status DNR/DNI Current Weight Wgt-51.7 kg Renally Cleared and Narrow Therapeutic Index Meds CrCl~ 23.9 mL/min Meds-OK QTc Value / Action Taken QTc-435 na BP Control, Fever BP- 109/70 Tmax- 37.1C Electrolytes reviewed Na- 135 K+3.7 Mag- 1.6 DVT Prophylaxis apixaban Opiate Usage / Scheduled Bowel Regimen Ordered No Yes Plt/SCr for Heparin / Enoxaparin Plts- 253 SCr-1.30 INR for Warfarin NA H/H stable, WBC/Bands H&H- 11.9/38.2 WBC- 6.94 Antibiotic appropriateness none Cultures and Sensitivities none Surgical ABX d/c within 24 hr na DM control / Insulin Dosing BG-101 Heart Failure (Check EF%) (YOBANY's, B-Block, Diuretics) Norvasc, Clonidine, Hydralazine, Lopressor, Lasix IV to PO Switch No Home Meds Reviewed Yes, MD thinks recently started Dapsone percipitated illness) Home Meds Not Ordered Dapsone (new), Breo-jocelyne, Vit-D, Lisinopril,Losartan Comments
--- NOTE | 2018-10-20 17:30 | PT.INTREAT ---
Date of service: 10/20/18 Time of Service: 08:54 PT Notes Inpatient Physical Therapy Treatment Note [facility] Date: 10/20/2018 PRECAUTIONS: Fall. Standard. SUBJECTIVE: Patient reports that she slept better last night. She denies nausea and vomitting. She does report continued dizziness albeit significantly less now. She reports no chest pain but did say she still feels her forehead sore from the fall. Patient states that she was able to recover well from last therapy session without undue fatigue. OBJECTIVE: Patient seen resting in bed. IV now temporarily off. PAIN: mild pain/ache on forehead BED MOBILITY/TRANSFERS Rolling L/R: CGA Supine-sit: CGA Sit-supine: CGA Sit-stand: minimal assist Stand-sit: minimal assist Bed-Chair: minimal assist Chair-bed: minimal assist GAIT Assistive Device: FWW Weight bearing: FWB Assist: minimal assist Distance: 40 feet x 2 Deviation:Gait velocity significantly reduced due to report of increased dizziness. Nurse updated regarding complaint. THEREX: Patient completed supine/seated/standing level exercises as indicated in exercise flow sheet without undue fatigue, significant increase in pain, increase in dyspnea. ASSESSMENT: Patient demonstrates good tolerance to physical therapy session with observed improvement in terms of pain level, activity tolerance, self-efficacy/confidence, and participation level. Patient declined dizziness test saying she does not want the symptoms to worsen despite education of the diagnostic/therapeutic benefit of maneuvers. PLAN: Patient to progress with mobility level, functional performance, and knowledge of HEP to achieve previously established goals. TREATMENT CODE/TIME: 03666 x 15 minutes, 29223 x 10 minutes beginning at 8:54 AM.
[2018-10-21] VITALS (13 sets, daily range): BP systolic 109–149; BP diastolic 43–77; PULSE 63–109; RESP 16–18; TEMP 36.1–37; O2SAT 92–98
[2018-10-21 07:17] LABS: Abs Immature Grans 0.06 k/cumm (0.0-0.09); Absolute Basophil Count 0.04 k/cumm (0.0-0.2); Absolute Eosinophil Count 0.27 k/cumm (0.0-0.7); Absolute Lymphocyte Count 1.56 k/cumm (1.2-3.4); Absolute Monocyte Count 0.73 k/cumm (0.11-0.7); Absolute Neutrophil Count 5.28 k/cumm (1.2-6.7); Anion Gap 9.1 mmol/L (3-11); BUN 23 mg/dL (7-18); Basophils % 0.5; CO2 24.9 mmol/L (21.0-32.0); CREATININE 1.53 mg/dL (0.55-1.02); Calcium 10.2 mg/dL (8.5-10.1); Chloride 98 mmol/L (98-107); Eosinophils % 3.4; Estimated GFR 32.49 (mL/min/1.73m2); Glucose 99 mg/dL (70-100); HCT 40.2 % (36.0-46.0); HGB 12.6 g/dL (12.0-15.5); Immature Grans % 0.8; Lymphocytes % 19.6; Magnesium 2.3 mg/dL (1.8-2.4); Mean Corp. HGB Concentration 31.3 g/dL (32.0-36.0); Mean Corpuscular Volume 92.6 fL (80-95); Mean Platelet Volume 9.2 fL (8.0-11.0); Monocytes % 9.2; Neutrophils % 66.5; Platelet Count 242 x1000/uL (130-400); Potassium 3.6 mmol/L (3.5-5.1); RBC 4.34 m/cumm (4.00-5.20); RBC Distribution Width 16.6 % (11.7-14.6); Sodium 132 mmol/L (136-145); White Blood Cell Count 7.94 k/cumm (4.4-10.8)
[2018-10-21] MEDS: Docusate Sodium 100 MG CAP PO ×2 (07:21→21:10)
[2018-10-21] MEDS: Furosemide 20 MG TAB PO (07:21)
[2018-10-21] MEDS: hydrALAZINE 10 MG TAB PO ×2 (07:22→21:11)
[2018-10-21] MEDS: amLODIPine 5 MG TAB PO (07:22)
[2018-10-21] MEDS: Apixaban 2.5 MG TAB PO ×2 (07:22→21:10)
[2018-10-21] MEDS: Potassium Chloride 20 MEQ TABCR 40 MEQ PO (09:26)
--- NOTE | 2018-10-21 11:16 | PT.INTREAT ---
Date of service: 10/21/18 Time of Service: 10:50 PT Notes Inpatient Physical Therapy Treatment Note [facility] Date: October 21, 2018 PRECAUTIONS:Falls SUBJECTIVE: Antonia reports that she is not feeling the best this morning after drinking some prune juice. She notes of belly discomfort. She notes that she also remains a little dizzy. OBJECTIVE: PAIN: Declines any pain other than an upset stomach. BED MOBILITY/TRANSFERS Sit-stand: CG with use of gait belt, cueing for hand placement, utilized FWW upon standing. Noted mild increased dizziness upon standing. Stand-sit: S, with cueing for proper hand placement- reaching back for chair. Upon returning to seated position she vomited. GAIT Assistive Device: FWW Weight bearing: Full Assist: CG Distance: Unable to assess due to upset stomach. Needed to return to seated position. Balance: In standing static assessment feet together 10 + seconds without assist, foot in instep of other foot 10+ seconds. With cueing to look straight ahead had increased dizziness and noted increased sway. Modified tandem 10+ seconds. Unable to assume unilateral stance. ASSESSMENT: Patient remains limited in her functional mobility secondary to increased dizziness and altered gait and balance. She does demonstrate improved LE strength in comparison to IE. PLAN: Will continue PT promoting functional mobility, transfers and gait monitoring her response in order to return home. TREATMENT CODE/TIME: 48093, 20 minutes ALFRED Vitale
--- NOTE | 2018-10-21 11:45 | W.PM.PROGNOT ---
Date of Service Date of service: 10/21/18 Time of Service: 11:45 Assessment and Plan (1) Dizziness: Current visit: Yes Status: Acute Unsure of exact etiology - symptoms appear to be present but improved. Attributed to potential side-effect of Dapsone, now on hold. Apparently symptoms started soon after initiation or titration of this medication by dermatology, and included headaches, nausea, dizziness, and vomiting. CT of the head checked and negative - MRI cannot be obtained locally due to the presence of her PPM. Continue to monitor. (2) Hypertension: Current visit: No Status: Chronic Blood pressure actually low, with systolic ranges in the 100-110's. YOBANY-I and ARB remain on hold in setting of ZAFAR, with plans of only initiating YOBANY-I in the future given history of CHF. Discontinue recently initiated CCB given hypotension and concurrent dizziness, although doubt current correlation. Decrease dosing of Hydralazine to home dosing of BID, and continue Clonidine to avoid rebound, but with strict hold parameters. (3) ZAFAR (acute kidney injury): Current visit: No Status: Acute In setting of dehydration from increased in lasix dose, as well as concurrent administration of YOBANY-I and ARB. Creatinine improved. (4) CKD (chronic kidney disease): Current visit: No Status: Chronic (5) Hypercalcemia: Current visit: No Status: Acute Initially significantly elevated in setting of dehydration, now normal to minimally elevated only. Mild hypercalcemia is chronic, with a normal PTH level recently checked, and with patient on chronic supplementation with Calcium, currently on hold. Plans for discontinution of supplemental Ca at time of discharge. (6) PAF (paroxysmal atrial fibrillation): Current visit: No Status: Chronic Continue BB. On anticoagulation with Apixaban. (7) Malfunction of cardiac pacemaker: Current visit: Yes Status: Acute Apparent evidence of atrial undersensing by review of patient's telemetry strip by [facility] [place]. Will need outpatient follow-up for pacer interrogation and adjustment. (8) CHF (congestive heart failure): Current visit: No Status: Chronic Evidence of both systolic and diastolic CHF (LV 45-50%) by last echo in 2016, with an EF of 50-55% by ECHO 09/2018. Currently with Furosemide on hold (previously at lower dose, QOD dosing), YOBANY-I on hold as above. Continue beta-eden. (9) Asthma: Current visit: No Status: Chronic Appears quiescent. Continue home regimen of Theophylline, inahler therapy. (10) Abnormal CT scan of lung: Current visit: Yes Status: Acute Previously significant abnormal imaging of the lungs, with CT at the time (08/2018) showing evidence of diffuse b/l R>L intrapulmonary radiodensities. Mrs. Win did not respond to antibiotics, but was noted to have improvement with the addition of prednisone. At the time of her discharge from the hospital the differential included Amiodarone Toxicity, Eosinophilic Pneumonia (Although no evidence of eosinophilia by CBC), atypical infection, or autoimmune process. Important to note that she did not respond to diuresis while here at the hospital, but was deemed likely secondary to fluid overload by pulmonary evaluation as an outpatient. Current CXR with apparent improvement, and patient feels well and at her baseline. Monitor. (11) DVT prophylaxis: Current visit: No Status: Acute On Apixaban. (12) Advance directive on file: Current visit: No Status: Acute DNR/DNI Subjective Interval history since last seen: 83-year-old woman with a prior history of HTN and PAF, admitted from [facility] Emergency Department on 10/17 with a diagnosis of Dizziness and ZAFAR. Mrs. Win has a past medical history significant for CHF with an LVEF of 45-50% previously now 50-55%, as well as mention of diastolic dysfunction by prior echo. She has a history of paroxysmal AFib currently in sinus rhythm, previously maintained on antiarrhythmic therapy with amiodarone, and on chronic anticoagulation. Her other history includes tachybrady syndrome s/p dual-chamber PPM placement in 2016, CKD, asthma, HTN, and PHTN. Review of her labs indicate a mild hypercalcemia in the past, unknown of the origin or prior work-up of this, as well as presence of supplemental Calcium and Vitamin D. She was admitted here approximately one month ago with hypoxia and abnormal imaging of her lungs, suspected secondary to Amiodarone toxicity. The patient presented to the ED with reported 1 week history of dizziness, especially with getting up and with ambulation. She suffered a fall at home but did not lose consciousness. Her work-up in the ED showed no evidence of infection, but did show ZAFAR superimposed on CKD, as well as hypercalcemia. Review of her history also revealed recent increase in lasix dose, and addition of a low dose ARB on top of patient's YOBANY-I. Following admission the patient's lasix, ARB, and YOBANY-I were held, and her kidney function has improved. She was also on dapsone for a reported diagnosis of Bullous Pemphigoid, discontinued as thought to be contributing to patient's dizziness. Today she reports continued but improved dizziness overall. She had one bout of vomiting attributed to ingestion of prune juice. Her blood pressure is relatively low. No other events reported. Remains afebrile. Exam Narrative Exam Narrative: General: Patient appears comfortable, OOB in chair, AAOX3, NAD Neck: Supple CV: Regular, nontachycardic, S1S2, No rubs, murmurs, or gallops. Pulmonary: Clear to auscultation bilaterally, no crackles, wheezing, or rhonchi Abdomen: + Bowel Sounds, soft, nontender, nondistended Vascular: No lower extremity edema Psych: Normal mood and affect. Objective Objective Clinical Data: Abnormal lab results 10/21/18 10/21/18 Range/Units 06:40 06:40 MCHC 31.3 L (32.0-36.0) g/dL RDW 16.6 H (11.7-14.6) % Absolute Monocytes 0.73 H (0.11-0.7) k/cumm Sodium 132 L (136-145) mmol/L BUN 23 H (7-18) mg/dL Creatinine 1.53 H (0.55-1.02) mg/dL Calcium 10.2 H (8.5-10.1) mg/dL Vital Signs Temperature 36.4 C L 10/21/18 10:56 Temperature Source Tympanic 10/21/18 10:56 Pulse 75 10/21/18 10:56 Pulse Rhythm Regular 10/21/18 07:40 Pulse 69 10/17/18 17:31 Respiratory Rate 16 10/21/18 10:56 Respiratory Effort Non-Labored 10/21/18 07:40 Respiratory Depth Normal 10/21/18 07:40 Respiratory Pattern Normal 10/20/18 16:17 Blood Pressure 130/72 10/21/18 10:56 Blood Pressure Mean 68 10/17/18 17:30 Blood Pressure Position Sitting 10/17/18 11:35 Pulse Oximetry 92 L 10/21/18 10:56 Oxygen Delivery Method Room Air 10/21/18 10:56 Oxygen Flow Rate 0 10/21/18 10:56 Pain Level 5 10/20/18 07:10 Comment 10/20/18 11:15 Intake & Output 10/20/18 10/20/18 10/21/18 11:59 23:59 11:59 Intake Total 1050 / 1230 180 / 1230 400 / 400 Output Total 2500 / 2850 350 / 2850 300 / 300 Balance -1450 / -1620 -170 / -1620 100 / 100 Weight 51.7 kg 52.7 kg Intake: IV 0 / 0 Oral 1050 / 1230 180 / 1230 400 / 400 Output: Urine 2500 / 2850 350 / 2850 300 / 300 Other: Urine Color Yellow Straw Pale Yellow Urine Appearance Clear Clear Clear Urine Odor None Normal Stool Size Moderate Stool Characteristics Soft Formed Brown Voiding Methods Bedside Commode Bedside Commode Toilet Laboratory Results WBC 7.94 k/cumm (4.4-10.8) 10/21/18 06:40 RBC 4.34 m/cumm (4.00-5.20) 10/21/18 06:40 Hgb 12.6 g/dL (12.0-15.5) 10/21/18 06:40 Hct 40.2 % (36.0-46.0) 10/21/18 06:40 MCV 92.6 fL (80-95) 10/21/18 06:40 MCH 29.0 pg (27.0-33.0) 10/21/18 06:40 MCHC 31.3 g/dL (32.0-36.0) L 10/21/18 06:40 RDW 16.6 % (11.7-14.6) H 10/21/18 06:40 Plt Count 242 x1000/uL (130-400) 10/21/18 06:40 MPV 9.2 fL (8.0-11.0) 10/21/18 06:40 Immature Gran % 0.8 10/21/18 06:40 Neutrophils % 66.5 10/21/18 06:40 Lymphocytes % 19.6 10/21/18 06:40 Monocytes % 9.2 10/21/18 06:40 Eosinophils % 3.4 10/21/18 06:40 Basophils % 0.5 10/21/18 06:40 Absolute Neutrophils 5.28 k/cumm (1.2-6.7) 10/21/18 06:40 Absolute Lymphocytes 1.56 k/cumm (1.2-3.4) 10/21/18 06:40 Absolute Monocytes 0.73 k/cumm (0.11-0.7) H 10/21/18 06:40 Absolute Eosinophils 0.27 k/cumm (0.0-0.7) 10/21/18 06:40 Absolute Basophils 0.04 k/cumm (0.0-0.2) 10/21/18 06:40 Differential Comment Diff reviewed 10/18/18 07:10 RBC Morphology Normal 10/18/18 07:10 Sodium 132 mmol/L (136-145) L 10/21/18 06:40 Potassium 3.6 mmol/L (3.5-5.1) 10/21/18 06:40 Chloride 98 mmol/L (98-107) 10/21/18 06:40 Carbon Dioxide 24.9 mmol/L (21.0-32.0) 10/21/18 06:40 Anion Gap 9.1 mmol/L (3-11) 10/21/18 06:40 BUN 23 mg/dL (7-18) H 10/21/18 06:40 Creatinine 1.53 mg/dL (0.55-1.02) H 10/21/18 06:40 Estimated GFR/1.73 m2 32.49 (mL/min/1.73m2) 10/21/18 06:40 Glucose 99 mg/dL (70-100) 10/21/18 06:40 Calcium 10.2 mg/dL (8.5-10.1) H 10/21/18 06:40 Magnesium 2.3 mg/dL (1.8-2.4) 10/21/18 06:40 Total Bilirubin 0.4 mg/dL (0.2-1.0) 10/19/18 06:32 Conjugated Bilirubin < 0.05 mg/dL (0.00-0.20) 10/19/18 06:32 AST 17 U/L (15-37) 10/19/18 06:32 ALT 14 U/L (12-78) 10/19/18 06:32 Alkaline Phosphatase 56 U/L (46-116) 10/19/18 06:32 Troponin I 0.04 ng/mL (0.00-0.06) 10/18/18 07:10 NT-Pro-B Natriuret Pep 1640 pg/mL (-299) H 10/17/18 12:30 Total Protein 6.6 g/dL (6.4-8.2) 10/19/18 06:32 Albumin 2.8 g/dL (3.4-5.0) L 10/19/18 06:32 Urine Color Yellow (Yellow) 10/17/18 13:56 Urine Clarity Clear 10/17/18 13:56 Urine pH 7.0 (5-8) 10/17/18 13:56 Ur Specific [place] 1.015 (1.005-1.025) 10/17/18 13:56 Urine Protein Negative mg/dL (Negative) 10/17/18 13:56 Urine Ketones Negative mg/dL (Negative) 10/17/18 13:56 Urine Blood Negative (Negative) 10/17/18 13:56 Urine Nitrite Negative (Negative) 10/17/18 13:56 Urine Bilirubin Negative (Negative) 10/17/18 13:56 Urine Urobilinogen 0.2 EU/dL (Up TO 0.2) 10/17/18 13:56 Ur Leukocyte Esterase Small (Negative) H 10/17/18 13:56 Urine RBC Not Applicable 10/17/18 13:56 Urine WBC 20-50 HPF (0-5) 10/17/18 13:56 Ur Epithelial Cells Many HPF (Negative) 10/17/18 13:56 Urine Crystals Negative HPF (Negative) 10/17/18 13:56 Urine Bacteria Few HPF (Negative) 10/17/18 13:56 Urine Mucus Negative (Negative) 10/17/18 13:56 Ur Culture Indicated? No/sq. contamination 10/17/18 13:56 Urine Glucose Negative mg/dL (Negative) 10/17/18 13:56 Theophylline 10.7 ug/ml (10.0-20.0) 10/18/18 07:10
--- NOTE | 2018-10-21 11:48 | PGE_ITS ---
Date of Service Date of service: 10/21/18 Time of Service: 11:45 Assessment and Plan (1) Dizziness: Current visit: Yes Status: Acute Unsure of exact etiology - symptoms appear to be present but improved. Attributed to potential side-effect of Dapsone, now on hold. Apparently symptoms started soon after initiation or titration of this medication by dermatology, and included headaches, nausea, dizziness, and vomiting. CT of the head checked and negative - MRI cannot be obtained locally due to the presence of her PPM. Continue to monitor. (2) Hypertension: Current visit: No Status: Chronic Blood pressure actually low, with systolic ranges in the 100-110's. YOBANY-I and ARB remain on hold in setting of ZAFAR, with plans of only initiating YOBANY-I in the future given history of CHF. Discontinue recently initiated CCB given hypotension and concurrent dizziness, although doubt current correlation. Decrease dosing of Hydralazine to home dosing of BID, and continue Clonidine to avoid rebound, but with strict hold parameters. (3) ZAFAR (acute kidney injury): Current visit: No Status: Acute In setting of dehydration from increased in lasix dose, as well as concurrent administration of YOBANY-I and ARB. Creatinine improved. (4) CKD (chronic kidney disease): Current visit: No Status: Chronic (5) Hypercalcemia: Current visit: No Status: Acute Initially significantly elevated in setting of dehydration, now normal to minimally elevated only. Mild hypercalcemia is chronic, with a normal PTH level recently checked, and with patient on chronic supplementation with Calcium, currently on hold. Plans for discontinution of supplemental Ca at time of discharge. (6) PAF (paroxysmal atrial fibrillation): Current visit: No Status: Chronic Continue BB. On anticoagulation with Apixaban. (7) Malfunction of cardiac pacemaker: Current visit: Yes Status: Acute Apparent evidence of atrial undersensing by review of patient's tele[place] [facility] [place] Will need outpatient follow-up for pacer interrogation and adjustment. (8) CHF (congestive heart failure): Current visit: No Status: Chronic Evidence of both systolic and diastolic CHF (LV 45-50%) by last echo in 2016, with an EF of 50-55% by ECHO 09/2018. Currently with Furosemide on hold (previously at lower dose, QOD dosing), YOBANY-I on hold as above. Continue beta- ed[place]. (9) Asthma: Current visit: No Status: Chronic Appears quiescent. Continue home regimen of Theophylline, inahler therapy. (10) Abnormal CT scan of lung: Current visit: Yes Status: Acute Previously significant abnormal imaging of the lungs, with CT at the time (08/2018) showing evidence of diffuse b/l R>L intrapulmonary radiodensities. Mrs. Win did not respond to antibiotics, but was noted to have improvement with the addition of prednisone. At the time of her discharge from the hospital the differential included Amiodarone Toxicity, Eosinophilic Pneumonia (Although no evidence of eosinophilia by CBC), atypical infection, or autoimmune process. Important to note that she did not respond to diuresis while here at the hospital, but was deemed likely secondary to fluid overload by pulmonary evaluation as an outpatient. Current CXR with apparent improvement, and patient feels well and at her baseline. Monitor. (11) DVT prophylaxis: Current visit: No Status: Acute On Apixaban. (12) Advance directive on file: Current visit: No Status: Acute DNR/DNI Subjective Interval history since last seen: 83-year-old woman with a prior history of HTN and PAF, admitted from [facility] Emergency Department on 10/17 with a diagnosis of Dizziness and ZAFAR. Mrs. Win has a past medical history significant for CHF with an LVEF of 45- 50% previously now 50-55%, as well as mention of diastolic dysfunction by prior echo. She has a history of paroxysmal AFib currently in sinus rhythm, previously maintained on antiarrhythmic therapy with amiodarone, and on chronic anticoagulation. Her other history includes tachybrady syndrome s/p dual-ch karlos PPM placement in 2016, CKD, asthma, HTN, and PHTN. Review of her labs indicate a mild hypercalcemia in the past, unknown of the origin or prior work- up of this, as well as presence of supplemental Calcium and Vitamin D. She was admitted here approximately one month ago with hypoxia and abnormal imaging of her lungs, suspected secondary to Amiodarone toxicity. The patient presented to the ED with reported 1 week history of dizziness, especially with getting up and with ambulation. She suffered a fall at home but did not lose consciousness. Her work-up in the ED showed no evidence of infection, but did show ZAFAR superimposed on CKD, as well as hypercalcemia. Review of her history also revealed recent increase in lasix dose, and addition of a low dose ARB on top of patient's YOBANY- I. Following admission the patient's lasix, ARB, and YOBANY-I were held, and her kidney function has improved. She was also on dapsone for a reported diagnosis of Bullous Pemphigoid, discontinued as thought to be contributing to patient's dizziness. Today she reports continued but improved dizziness overall. She had one bout of vomiting attributed to ingestion of prune juice. Her blood pressure is relatively low. No other events reported. Remains afebrile. Exam Narrative Exam Narrative: General: Patient appears comfortable, OOB in chair, AAOX3, NAD Neck: Supple CV: Regular, nontachycardic, S1S2, No rubs, murmurs, or gallops. Pulmonary: Clear to auscultation bilaterally, no crackles, wheezing, or rhonchi Abdomen: + Bowel Sounds, soft, nontender, nondistended Vascular: No lower extremity edema Psych: Normal mood and affect. Objective Objective Clinical Data: Abnormal lab results 10/21/18 10/21/18 Range/Units 06:40 06:40 MCHC 31.3 L (32.0-36.0) g/dL RDW 16.6 H (11.7-14.6) % Absolute Monocytes 0.73 H (0.11-0.7) k/cumm Sodium 132 L (136-145) mmol/L BUN 23 H (7-18) mg/dL Creatinine 1.53 H (0.55-1.02) mg/dL Calcium 10.2 H (8.5-10.1) mg/dL Vital Signs Temperature 36.4 C L 10/21/18 10:56 Temperature Source Tympanic 10/21/18 10:56 Pulse 75 10/21/18 10:56 Pulse Rhythm Regular 10/21/18 07:40 Pulse 69 10/17/18 17:31 Respiratory Rate 16 10/21/18 10:56 Respiratory Effort Non-Labored 10/21/18 07:40 Respiratory Depth Normal 10/21/18 07:40 Respiratory Pattern Normal 10/20/18 16:17 Blood Pressure 130/72 10/21/18 10:56 Blood Pressure Mean 68 10/17/18 17:30 Blood Pressure Position Sitting 10/17/18 11:35 Pulse Oximetry 92 L 10/21/18 10:56 Oxygen Delivery Method Room Air 10/21/18 10:56 Oxygen Flow Rate 0 10/21/18 10:56 Pain Level 5 10/20/18 07:10 Comment 10/20/18 11:15 Intake & Output 10/20/18 10/20/18 10/21/18 11:59 23:59 11:59 Intake Total 1050 / 1230 180 / 1230 400 / 400 Output Total 2500 / 2850 350 / 2850 300 / 300 Balance -1450 / -1620 -170 / -1620 100 / 100 Weight 51.7 kg 52.7 kg Intake: IV 0 / 0 Oral 1050 / 1230 180 / 1230 400 / 400 Output: Urine 2500 / 2850 350 / 2850 300 / 300 Other: Urine Color Yellow Straw Pale Yellow Urine Appearance Clear Clear Clear Urine Odor None Normal Stool Size Moderate Stool Characteristics Soft Formed Brown Voiding Methods Bedside Commode Bedside Commode Toilet Laboratory Results WBC 7.94 k/cumm (4.4-10.8) 10/21/18 06:40 RBC 4.34 m/cumm (4.00-5.20) 10/21/18 06:40 Hgb 12.6 g/dL (12.0-15.5) 10/21/18 06:40 Hct 40.2 % (36.0-46.0) 10/21/18 06:40 MCV 92.6 fL (80-95) 10/21/18 06:40 MCH 29.0 pg (27.0-33.0) 10/21/18 06:40 MCHC 31.3 g/dL (32.0-36.0) L 10/21/18 06:40 RDW 16.6 % (11.7-14.6) H 10/21/18 06:40 Plt Count 242 x1000/uL (130-400) 10/21/18 06:40 MPV 9.2 fL (8.0-11.0) 10/21/18 06:40 Immature Gran % 0.8 10/21/18 06:40 Neutrophils % 66.5 10/21/18 06:40 Lymphocytes % 19.6 10/21/18 06:40 Monocytes % 9.2 10/21/18 06:40 Eosinophils % 3.4 10/21/18 06:40 Basophils % 0.5 10/21/18 06:40 Absolute Neutrophils 5.28 k/cumm (1.2-6.7) 10/21/18 06:40 Absolute Lymphocytes 1.56 k/cumm (1.2-3.4) 10/21/18 06:40 Absolute Monocytes 0.73 k/cumm (0.11-0.7) H 10/21/18 06:40 Absolute Eosinophils 0.27 k/cumm (0.0-0.7) 10/21/18 06:40 Absolute Basophils 0.04 k/cumm (0.0-0.2) 10/21/18 06:40 Differential Comment Diff reviewed 10/18/18 07:10 RBC Morphology Normal 10/18/18 07:10 Sodium 132 mmol/L (136-145) L 10/21/18 06:40 Potassium 3.6 mmol/L (3.5-5.1) 10/21/18 06:40 Chloride 98 mmol/L (98-107) 10/21/18 06:40 Carbon Dioxide 24.9 mmol/L (21.0-32.0) 10/21/18 06:40 Anion Gap 9.1 mmol/L (3-11) 10/21/18 06:40 BUN 23 mg/dL (7-18) H 10/21/18 06:40 Creatinine 1.53 mg/dL (0.55-1.02) H 10/21/18 06:40 Estimated GFR/1.73 m2 32.49 (mL/min/1.73m2) 10/21/18 06:40 Glucose 99 mg/dL (70-100) 10/21/18 06:40 Calcium 10.2 mg/dL (8.5-10.1) H 10/21/18 06:40 Magnesium 2.3 mg/dL (1.8-2.4) 10/21/18 06:40 Total Bilirubin 0.4 mg/dL (0.2-1.0) 10/19/18 06:32 Conjugated Bilirubin < 0.05 mg/dL (0.00-0.20) 10/19/18 06:32 AST 17 U/L (15-37) 10/19/18 06:32 ALT 14 U/L (12-78) 10/19/18 06:32 Alkaline Phosphatase 56 U/L (46-116) 10/19/18 06:32 Troponin I 0.04 ng/mL (0.00-0.06) 10/18/18 07:10 NT-Pro-B Natriuret Pep 1640 pg/mL (-299) H 10/17/18 12:30 Total Protein 6.6 g/dL (6.4-8.2) 10/19/18 06:32 Albumin 2.8 g/dL (3.4-5.0) L 10/19/18 06:32 Urine Color Yellow (Yellow) 10/17/18 13:56 Urine Clarity Clear 10/17/18 13:56 Urine pH 7.0 (5-8) 10/17/18 13:56 Ur Specific [place] 1.015 (1.005-1.025) 10/17/18 13:56 Urine Protein Negative mg/dL (Negative) 10/17/18 13:56 Urine Ketones Negative mg/dL (Negative) 10/17/18 13:56 Urine Blood Negative (Negative) 10/17/18 13:56 Urine Nitrite Negative (Negative) 10/17/18 13:56 Urine Bilirubin Negative (Negative) 10/17/18 13:56 Urine Urobilinogen 0.2 EU/dL (Up TO 0.2) 10/17/18 13:56 Ur Leukocyte Esterase Small (Negative) H 10/17/18 13:56 Urine RBC Not Applicable 10/17/18 13:56 Urine WBC 20-50 HPF (0-5) 10/17/18 13:56 Ur Epithelial Cells Many HPF (Negative) 10/17/18 13:56 Urine Crystals Negative HPF (Negative) 10/17/18 13:56 Urine Bacteria Few HPF (Negative) 10/17/18 13:56 Urine Mucus Negative (Negative) 10/17/18 13:56 Ur Culture Indicated? No/sq. contamination 10/17/18 13:56 Urine Glucose Negative mg/dL (Negative) 10/17/18 13:56 Theophylline 10.7 ug/ml (10.0-20.0) 10/18/18 07:10
--- NOTE | 2018-10-21 14:59 | PDOC.CMPRO ---
Care Management Progress Note /O: Antonia remains acute status. Medication adjustments in progress. PT and OT continue to consult. She plans to return home with her daughter. A: Antonia is a 83 year old female admitted with ZAFAR, hypercalcemia, and dehydration. Symptomatic dizziness, and ambulatory dysfunction. P:Antonia remains acute no change in status today. She continues to be monitored by Telemetry. She will return to her daughters when she is ready for discharge, follow up with primary care. CM to continue to provide support and ongoing discharge planning and education to Pt and family.
[2018-10-21] MEDS: Normal Saline Flush 10 ML SYR IVP ×2 (15:22→21:11)
[2018-10-21] MEDS: Ondansetron 4 MG/2 ML VIAL IVP ×2 (15:22→21:11)
[2018-10-21] MEDS: Prochlorperazine 10 MG/2 ML VIAL IM (20:05)
[2018-10-21] MEDS: Metoprolol 25 MG TAB PO (21:10)
[2018-10-21] MEDS: cloNIDine 0.1 MG TAB PO (21:10)
--- NOTE | 2018-10-21 22:48 | NUR.NOTE ---
Patient vomited x 2 this evening light brownish secretions, state she started feeling nauseated after drinking prune juice to help soften her stool. She also passed bloody looking stool, state due to her hemorrhoids she tends to force her stool out and this causes irritation and bleeding. Patient was medicated with anti-emetic Prochlorperazine 10mg prn medications to alleviate her discomfort of nausea and the vomiting. Charge nurse on duty informed
[2018-10-22] VITALS (9 sets, daily range): BP systolic 94–154; BP diastolic 59–77; PULSE 72–103; RESP 16–20; TEMP 36–37; O2SAT 94–97
[2018-10-22 07:27] LABS: Abs Immature Grans 0.04 k/cumm (0.0-0.09); Absolute Basophil Count 0.05 k/cumm (0.0-0.2); Absolute Lymphocyte Count 1.62 k/cumm (1.2-3.4); Absolute Monocyte Count 0.81 k/cumm (0.11-0.7); Absolute Neutrophil Count 5.76 k/cumm (1.2-6.7); Basophils % 0.6; Eosinophils % 2.4; HCT 37.7 % (36.0-46.0); HGB 12.2 g/dL (12.0-15.5); Immature Grans % 0.5; Lymphocytes % 19.1; Mean Corp. HGB Concentration 32.4 g/dL (32.0-36.0); Mean Corpuscular Hemoglobin 29.8 pg (27.0-33.0); Mean Corpuscular Volume 92.2 fL (80-95); Mean Platelet Volume 9.4 fL (8.0-11.0); Monocytes % 9.6; Neutrophils % 67.8; Platelet Count 237 x1000/uL (130-400); RBC 4.09 m/cumm (4.00-5.20); RBC Distribution Width 16.6 % (11.7-14.6); White Blood Cell Count 8.48 k/cumm (4.4-10.8)
[2018-10-22 07:28] LABS: Anion Gap 7.3 mmol/L (3-11); BUN 21 mg/dL (7-18); CO2 25.7 mmol/L (21.0-32.0); CREATININE 1.43 mg/dL (0.55-1.02); Calcium 9.8 mg/dL (8.5-10.1); Chloride 97 mmol/L (98-107); Estimated GFR 35.13 (mL/min/1.73m2); Glucose 97 mg/dL (70-100); Magnesium 2.1 mg/dL (1.8-2.4); Sodium 130 mmol/L (136-145)
[2018-10-22] MEDS: Apixaban 2.5 MG TAB PO ×2 (08:14→19:57)
[2018-10-22] MEDS: Pantoprazole 40 MG TABCR PO (08:14)
[2018-10-22] MEDS: Docusate Sodium 100 MG CAP PO ×2 (08:14→19:57)
[2018-10-22] MEDS: hydrALAZINE 10 MG TAB PO ×2 (08:15→19:57)
[2018-10-22] MEDS: Furosemide 20 MG TAB PO (08:15)
[2018-10-22] MEDS: Normal Saline Flush 10 ML SYR IVP ×3 (08:16→17:51)
--- NOTE | 2018-10-22 08:34 | PTTR_ITS ---
Date of service: 10/20/18 Time of Service: 08:54 PT Notes Inpatient Physical Therapy Treatment Note [facility] Date: 10/20/2018 PRECAUTIONS: Fall. Standard. SUBJECTIVE: Patient reports that she slept better last night. She denies nausea and vomitting. She does report continued dizziness albeit significantly less now. She reports no chest pain but did say she still feels her forehead sore from the fall. Patient states that she was able to recover well from last therapy session without undue fatigue. OBJECTIVE: Patient seen resting in bed. IV now temporarily off. PAIN: mild pain/ache on forehead BED MOBILITY/TRANSFERS Rolling L/R: CGA Supine-sit: CGA Sit-supine: CGA Sit-stand: minimal assist Stand-sit: minimal assist Bed-Chair: minimal assist Chair-bed: minimal assist GAIT Assistive Device: FWW Weight bearing: FWB Assist: minimal assist Distance: 40 feet x 2 Deviation:Gait velocity significantly reduced due to report of increased dizziness. Nurse updated regarding complaint. THEREX: Patient completed supine/seated/standing level exercises as indicated in exercise flow sheet without undue fatigue, significant increase in pain, increase in dyspnea. ASSESSMENT: Patient demonstrates good tolerance to physical therapy session with observed improvement in terms of pain level, activity tolerance, self- efficacy/confidence, and participation level. Patient declined dizziness test saying she does not want the symptoms to worsen despite education of the diagnostic/therapeutic benefit of maneuvers. PLAN: Patient to progress with mobility level, functional performance, and knowledge of HEP to achieve previously established goals. TREATMENT CODE/TIME: 97373 x 15 minutes, 38396 x 10 minutes beginning at 8:54 AM.
--- NOTE | 2018-10-22 09:30 | DI.RAD_ITS ---
SYMPTOMS/DIAGNOSIS: VOMITING FLAT AND UPRIGHT ABDOMEN: Comparison chest x-ray is 10/17/18. There is again seen scarring or atelectasis in the lung bases which appear stable. No organomegaly or pneumoperitoneum is seen. There is a large amount of stool seen throughout the colon. No evidence of bowel obstruction or pneumoperitoneum. There is again seen a left convex scoliosis of the thoracolumbar spine. Surgical clips are seen in the pelvis. IMPRESSION: Large amount of retained stool in the colon which may reflect constipation.
--- NOTE | 2018-10-22 10:17 | DI.VRAD_ITS ---
EXAM: XR Abdomen, 2 Views EXAM DATE/TIME: 10/22/2018 9:33 AM CLINICAL HISTORY: 83 years old, female; Signs and symptoms; Prior surgery; Surgery date: 6+ months; Surgery type: Appendix and gallbladder surgery years ago. ; Patient HX: Vomiting x2 days, lbm days ago, abdominal pain. TECHNIQUE: Imaging protocol: Frontal view of the abdomen/pelvis with upright view of the abdomen. COMPARISON: No relevant prior studies available. FINDINGS: Lower thorax: Pacemaker wire is noted. Minimal bibasilar fibrosis or atelectasis evident. Gastrointestinal tract: There is fairly significant fecal retention noted. Intraperitoneal space: Postsurgical change in the deep pelvis, presumed hysterectomy and oophorectomy. Bones/joints: Status post median sternotomy. There is levoscoliosis of the thoraco-lumbar junction. IMPRESSION: Mild constipated change. COMMENT: Preliminary interpretation is based on receipt of 3 image(s). A final report will be issued subsequently. Dictated and Authenticated by: Martha Nance MD. Ordering:SOSA Zimmerman MD
[2018-10-22] MEDS: Ondansetron 4 MG/2 ML VIAL IVP ×2 (10:48→17:50)
--- NOTE | 2018-10-22 10:49 | PT.INTREAT ---
Date of service: 10/22/18 Time of Service: 09:55 PT Notes Inpatient Physical Therapy Treatment Note [facility] Date: October 22, 2018 PRECAUTIONS: [place] SUBJECTIVE: Antonia reports that she is still nauseous. She reports that she just came from xray. She notes that she continues to have dizziness with head movements. OBJECTIVE: PAIN: continues to note belly pain, she has not vomited this morning, nor has she had another bowel movement since yesterday. BED MOBILITY/TRANSFERS Sit-stand: S, without assistive device Stand-sit: S, with cueing for hand placement Bed-Chair: [facility] Chair-bed: [facility] GAIT Assistive Device: Not utilized at todays session Weight bearing: Full Assist: CGA Distance: 75 feet THEREX: UE/LE strength and stabilization per flow sheet. Performed Hallpike maneuver with negative nastagmus. Patient upon returning to seated position from supine did not some mild dizziness however was very short lived. ASSESSMENT: Negative Hallpike however notes occasional dizziness with head movements. Improved functional mobility today with ambulation CGA only without assitive device with wheelchair following in case. Tolerated all exercises well without complaints. PLAN: Continue with current POC. TREATMENT CODE/TIME: 42605,42058, 25 minutes Jessica Hills, ALFRED
[2018-10-22] MEDS: Milk of Magnesia 30 ML CUP PO (12:11)
[2018-10-22] MEDS: Prochlorperazine 10 MG/2 ML VIAL IM (13:01)
[2018-10-22] MEDS: Polyethylene Glycol 3350 17 GM PACKET PO (14:26)
[2018-10-22] MEDS: Senna TAB 1 TAB PO (14:26)
--- NOTE | 2018-10-22 15:14 | W.PM.PROGNOT ---
Date of Service Date of service: 10/22/18 Time of Service: 15:14 Assessment and Plan (1) Dizziness: Current visit: Yes Status: Acute Unsure of exact etiology - symptoms appear to be present but improved. Although attributed to potential side-effect of Dapsone (Currently on hold), patient also reports a positional aspect to her symptoms (described with head movements). Possibility for BPPV, but [place]-Hallpike Maneuver did not duplicate symptoms. CT of the head checked and negative - MRI cannot be obtained locally due to the presence of her PPM. Continue to monitor. (2) Nausea: Current visit: Yes Status: Acute Nausea with vomiting and abdominal discomfort - Abdominal Xray with evidence of constipation. Will attempt bowel regimen and reevaluate patient's symptoms. (3) Hypertension: Current visit: No Status: Chronic Blood pressure reasonable, despite YOBANY-I remaining on hold in setting of ZAFAR. Plan on initiating YOBANY-I in the future given history of CHF. Discontinue recently initiated CCB given hypotension and concurrent dizziness, although doubt current correlation. Decrease dosing of Hydralazine to home dosing of BID, and continue Clonidine to avoid rebound, but with strict hold parameters. (4) ZAFAR (acute kidney injury): Current visit: No Status: Acute In setting of dehydration from increased in lasix dose, as well as concurrent administration of YOBANY-I and ARB. Creatinine improved. Continue to monitor renal function, avoid nephrotoxins, and renally dose medications when appropriate. (5) CKD (chronic kidney disease): Current visit: No Status: Chronic (6) Hypercalcemia: Current visit: No Status: Acute Initially significantly elevated in setting of dehydration, now normal to minimally elevated only. Mild hypercalcemia is chronic, with a normal PTH level recently checked, and with patient on chronic supplementation with Calcium, currently on hold. Plans for discontinution of supplemental Ca at time of discharge. (7) PAF (paroxysmal atrial fibrillation): Current visit: No Status: Chronic Continue BB. On anticoagulation with Apixaban. (8) Malfunction of cardiac pacemaker: Current visit: Yes Status: Acute Apparent evidence of atrial undersensing by review of patient's telemetry strip by [place]. Will need outpatient follow-up for pacer interrogation and adjustment. (9) CHF (congestive heart failure): Current visit: No Status: Chronic Evidence of both systolic and diastolic CHF (LV 45-50%) by last echo in 2017, with an EF of 50-55% by ECHO 09/2018. Currently with Furosemide restarted (previously at lower dose, QOD dosing), YOBANY-I on hold as above. Continue beta-[place]. (10) Asthma: Current visit: No Status: Chronic Appears quiescent. Continue home regimen of Theophylline, inahler therapy. (11) Abnormal CT scan of lung: Current visit: Yes Status: Acute Previously significant abnormal imaging of the lungs, with CT at the time (08/2018) showing evidence of diffuse b/l R>L intrapulmonary radiodensities. Mrs. Win did not respond to antibiotics, but was noted to have improvement with the addition of prednisone. At the time of her discharge from the hospital the differential included Amiodarone Toxicity, atypical infection, or autoimmune/inflammatory process. Important to note that she did not respond to diuresis while here at the hospital, but was deemed likely secondary to fluid overload by pulmonary evaluation as an outpatient. Current CXR with apparent improvement, and patient feels well and at her baseline. Monitor. (12) DVT prophylaxis: Current visit: No Status: Acute On Apixaban. (13) Advance directive on file: Current visit: No Status: Acute DNR/DNI Subjective Interval history since last seen: 83-year-old woman with a prior history of HTN and PAF, admitted from [facility] Emergency Department on 10/17 with a diagnosis of Dizziness and ZAFAR. Mrs. Win has a past medical history significant for CHF with an LVEF of 45-50% previously now 50-55%, as well as mention of diastolic dysfunction by prior echo. She has a history of paroxysmal AFib currently in sinus rhythm, previously maintained on antiarrhythmic therapy with amiodarone, and on chronic anticoagulation. Her other history includes tachybrady syndrome s/p dual-chamber PPM placement in 2016, CKD, asthma, HTN, and PHTN. Review of her labs indicate a mild hypercalcemia in the past, unknown of the origin or prior work-up of this, as well as presence of supplemental Calcium and Vitamin D. She was admitted here approximately one month ago with hypoxia and abnormal imaging of her lungs, suspected secondary to Amiodarone toxicity. The patient presented to the ED with reported 1 week history of dizziness, especially with getting up and with ambulation. She suffered a fall at home but did not lose consciousness. Her work-up in the ED showed no evidence of infection, but did show ZAFAR superimposed on CKD, as well as hypercalcemia. Review of her history also revealed recent increase in lasix dose, and addition of a low dose ARB on top of patient's YOBANY-I. Following admission the patient's lasix, ARB, and YOBANY-I were held, and her kidney function has improved. She was also on dapsone for a reported diagnosis of Bullous Pemphigoid, discontinued as thought to be contributing to patient's dizziness. Today she reports continued dizziness, described as worse with head movement and standing - [place]-Hallpike Maneuver checked by PT and negative. She also reported nausea with continued vomiting - Abdominal Xray checked and with apparent constipation. Her blood pressure remains reasonable. No other events reported. Remains afebrile. Exam Narrative Exam Narrative: General: Patient appears comfortable, OOB in chair, AAOX3, NAD Neck: Supple CV: Regular, nontachycardic, S1S2, No rubs, murmurs, or gallops. Pulmonary: Clear to auscultation bilaterally, no crackles, wheezing, or rhonchi Abdomen: + Bowel Sounds, soft, nontender, nondistended Vascular: No lower extremity edema Psych: Normal mood and affect. Objective Objective Clinical Data: Abnormal lab results 10/22/18 10/22/18 Range/Units 06:30 06:30 RDW 16.6 H (11.7-14.6) % Absolute Monocytes 0.81 H (0.11-0.7) k/cumm Sodium 130 L (136-145) mmol/L Chloride 97 L (98-107) mmol/L BUN 21 H (7-18) mg/dL Creatinine 1.43 H (0.55-1.02) mg/dL Vital Signs Temperature 36.9 C 10/22/18 07:30 Temperature Source Tympanic 10/22/18 07:30 Pulse 96 H 10/22/18 14:54 Pulse Rhythm Regular 10/22/18 08:10 Pulse 69 10/17/18 17:31 Respiratory Rate 18 10/22/18 07:30 Respiratory Effort Non-Labored 10/22/18 08:10 Respiratory Depth Normal 10/22/18 08:10 Respiratory Pattern Normal 10/22/18 08:10 Blood Pressure 122/67 10/22/18 14:50 Blood Pressure Mean 68 10/17/18 17:30 Blood Pressure Position Sitting 10/17/18 11:35 Pulse Oximetry 95 10/22/18 07:30 Oxygen Delivery Method Room Air 10/22/18 07:30 Oxygen Flow Rate 0 10/22/18 07:30 Pain Level 4 10/22/18 13:01 Comment 10/22/18 14:50 Intake & Output 10/21/18 10/22/18 10/22/18 23:59 11:59 23:59 Intake Total 250 / 1325 510 / 510 Output Total 300 / 1250 450 / 450 Balance -50 / 75 60 / 60 Intake: IV 10 Oral 240 / 1315 510 / 510 Output: Urine 450 / 450 Emesis 300 / 950 Other: Urine Color Yellow Urine Appearance Clear Clear Stool Size Small Stool Characteristics Soft Formed Emesis Description Retching Undigested Food Voiding Methods Toilet Toilet Laboratory Results WBC 8.48 k/cumm (4.4-10.8) 10/22/18 06:30 RBC 4.09 m/cumm (4.00-5.20) 10/22/18 06:30 Hgb 12.2 g/dL (12.0-15.5) 10/22/18 06:30 Hct 37.7 % (36.0-46.0) 10/22/18 06:30 MCV 92.2 fL (80-95) 10/22/18 06:30 MCH 29.8 pg (27.0-33.0) 10/22/18 06:30 MCHC 32.4 g/dL (32.0-36.0) 10/22/18 06:30 RDW 16.6 % (11.7-14.6) H 10/22/18 06:30 Plt Count 237 x1000/uL (130-400) 10/22/18 06:30 MPV 9.4 fL (8.0-11.0) 10/22/18 06:30 Immature Gran % 0.5 10/22/18 06:30 Neutrophils % 67.8 10/22/18 06:30 Lymphocytes % 19.1 10/22/18 06:30 Monocytes % 9.6 10/22/18 06:30 Eosinophils % 2.4 10/22/18 06:30 Basophils % 0.6 10/22/18 06:30 Absolute Neutrophils 5.76 k/cumm (1.2-6.7) 10/22/18 06:30 Absolute Lymphocytes 1.62 k/cumm (1.2-3.4) 10/22/18 06:30 Absolute Monocytes 0.81 k/cumm (0.11-0.7) H 10/22/18 06:30 Absolute Eosinophils 0.20 k/cumm (0.0-0.7) 10/22/18 06:30 Absolute Basophils 0.05 k/cumm (0.0-0.2) 10/22/18 06:30 Differential Comment Diff reviewed 10/18/18 07:10 RBC Morphology Normal 10/18/18 07:10 Sodium 130 mmol/L (136-145) L 10/22/18 06:30 Potassium 4.0 mmol/L (3.5-5.1) 10/22/18 06:30 Chloride 97 mmol/L (98-107) L 10/22/18 06:30 Carbon Dioxide 25.7 mmol/L (21.0-32.0) 10/22/18 06:30 Anion Gap 7.3 mmol/L (3-11) 10/22/18 06:30 BUN 21 mg/dL (7-18) H 10/22/18 06:30 Creatinine 1.43 mg/dL (0.55-1.02) H 10/22/18 06:30 Estimated GFR/1.73 m2 35.13 (mL/min/1.73m2) 10/22/18 06:30 Glucose 97 mg/dL (70-100) 10/22/18 06:30 Calcium 9.8 mg/dL (8.5-10.1) 10/22/18 06:30 Magnesium 2.1 mg/dL (1.8-2.4) 10/22/18 06:30 Total Bilirubin 0.4 mg/dL (0.2-1.0) 10/19/18 06:32 Conjugated Bilirubin < 0.05 mg/dL (0.00-0.20) 10/19/18 06:32 AST 17 U/L (15-37) 10/19/18 06:32 ALT 14 U/L (12-78) 10/19/18 06:32 Alkaline Phosphatase 56 U/L (46-116) 10/19/18 06:32 Troponin I 0.04 ng/mL (0.00-0.06) 10/18/18 07:10 NT-Pro-B Natriuret Pep 1640 pg/mL (-299) H 10/17/18 12:30 Total Protein 6.6 g/dL (6.4-8.2) 10/19/18 06:32 Albumin 2.8 g/dL (3.4-5.0) L 10/19/18 06:32 Urine Color Yellow (Yellow) 10/17/18 13:56 Urine Clarity Clear 10/17/18 13:56 Urine pH 7.0 (5-8) 10/17/18 13:56 Ur Specific [place] 1.015 (1.005-1.025) 10/17/18 13:56 Urine Protein Negative mg/dL (Negative) 10/17/18 13:56 Urine Ketones Negative mg/dL (Negative) 10/17/18 13:56 Urine Blood Negative (Negative) 10/17/18 13:56 Urine Nitrite Negative (Negative) 10/17/18 13:56 Urine Bilirubin Negative (Negative) 10/17/18 13:56 Urine Urobilinogen 0.2 EU/dL (Up TO 0.2) 10/17/18 13:56 Ur Leukocyte Esterase Small (Negative) H 10/17/18 13:56 Urine RBC Not Applicable 10/17/18 13:56 Urine WBC 20-50 HPF (0-5) 10/17/18 13:56 Ur Epithelial Cells Many HPF (Negative) 10/17/18 13:56 Urine Crystals Negative HPF (Negative) 10/17/18 13:56 Urine Bacteria Few HPF (Negative) 10/17/18 13:56 Urine Mucus Negative (Negative) 10/17/18 13:56 Ur Culture Indicated? No/sq. contamination 10/17/18 13:56 Urine Glucose Negative mg/dL (Negative) 10/17/18 13:56 Theophylline 10.7 ug/ml (10.0-20.0) 10/18/18 07:10
--- NOTE | 2018-10-22 15:17 | PGE_ITS ---
Date of Service Date of service: 10/22/18 Time of Service: 15:14 Assessment and Plan (1) Dizziness: Current visit: Yes Status: Acute Unsure of exact etiology - symptoms appear to be present but improved. Although attributed to potential side-effect of Dapsone (Currently on hold), patient also reports a positional aspect to her symptoms (described with head movements). Possibility for BPPV, but [employer]-Hallpike Maneuver did not duplicate symptoms. CT of the head checked and negative - MRI cannot be obtained locally due to the presence of her PPM. Continue to monitor. (2) Nausea: Current visit: Yes Status: Acute Nausea with vomiting and abdominal discomfort - Abdominal Xray with evidence of constipation. Will attempt bowel regimen and reevaluate patient's symptoms. (3) Hypertension: Current visit: No Status: Chronic Blood pressure reasonable, despite YOBANY-I remaining on hold in setting of ZAFAR. Plan on initiating YOBANY-I in the future given history of CHF. Discontinue recently initiated CCB given hypotension and concurrent dizziness, although doubt current correlation. Decrease dosing of Hydralazine to home dosing of BID, and continue Clonidine to avoid rebound, but with strict hold parameters. (4) ZAFAR (acute kidney injury): Current visit: No Status: Acute In setting of dehydration from increased in lasix dose, as well as concurrent administration of YOBANY-I and ARB. Creatinine improved. Continue to monitor renal function, avoid nephrotoxins, and renally dose medications when appropriate. (5) CKD (chronic kidney disease): Current visit: No Status: Chronic (6) Hypercalcemia: Current visit: No Status: Acute Initially significantly elevated in setting of dehydration, now normal to minimally elevated only. Mild hypercalcemia is chronic, with a normal PTH level recently checked, and with patient on chronic supplementation with Calcium, currently on hold. Plans for discontinution of supplemental Ca at time of discharge. (7) PAF (paroxysmal atrial fibrillation): Current visit: No Status: Chronic Continue BB. On anticoagulation with Apixaban. (8) Malfunction of cardiac pacemaker: Current visit: Yes Status: Acute Apparent evidence of atrial undersensing by review of patient's telemetry strip by [facility]. Will need outpatient follow-up for pacer interrogation and adjustment. (9) CHF (congestive heart failure): Current visit: No Status: Chronic Evidence of both systolic and diastolic CHF (LV 45-50%) by last echo in 2017, with an EF of 50-55% by ECHO 09/2018. Currently with Furosemide restarted (previously at lower dose, QOD dosing), YOBANY-I on hold as above. Continue beta- [place]. (10) Asthma: Current visit: No Status: Chronic Appears quiescent. Continue home regimen of Theophylline, inahler therapy. (11) Abnormal CT scan of lung: Current visit: Yes Status: Acute Previously significant abnormal imaging of the lungs, with CT at the time (08/2018) showing evidence of diffuse b/l R>L intrapulmonary radiodensities. Mrs. Win did not respond to antibiotics, but was noted to have improvement with the addition of prednisone. At the time of her discharge from the hospital the differential included Amiodarone Toxicity, atypical infection, or autoimmune/inflammatory process. Important to note that she did not respond to diuresis while here at the hospital, but was deemed likely secondary to fluid overload by pulmonary evaluation as an outpatient. Current CXR with apparent improvement, and patient feels well and at her baseline. Monitor. (12) DVT prophylaxis: Current visit: No Status: Acute On Apixaban. (13) Advance directive on file: Current visit: No Status: Acute DNR/DNI Subjective Interval history since last seen: 83-year-old woman with a prior history of HTN and PAF, admitted from [facility] Emergency Department on 10/17 with a diagnosis of Dizziness and ZAFAR. Mrs. Win has a past medical history significant for CHF with an LVEF of 45- 50% previously now 50-55%, as well as mention of diastolic dysfunction by prior echo. She has a history of paroxysmal AFib currently in sinus rhythm, pr eviously maintained on antiarrhythmic therapy with amiodarone, and on chronic anticoagulation. Her other history includes tachybrady syndrome s/p dual- chamber PPM placement in 2016, CKD, asthma, HTN, and PHTN. Review of her labs indicate a mild hypercalcemia in the past, unknown of the origin or prior work- up of this, as well as presence of supplemental Calcium and Vitamin D. She was admitted here approximately one month ago with hypoxia and abnormal imaging of her lungs, suspected secondary to Amiodarone toxicity. The patient presented to the ED with reported 1 week history of dizziness, especially with getting up and with ambulation. She suffered a fall at home but did not lose consciousness. Her work-up in the ED showed no evidence of infection, but did show ZAFAR superimposed on CKD, as well as hypercalcemia. Review of her history also revealed recent increase in lasix dose, and addition of a low dose ARB on top of patient's YOBANY- I. Following admission the patient's lasix, ARB, and YOBANY-I were held, and her kidney function has improved. She was also on dapsone for a reported diagnosis of Bullous Pemphigoid, discontinued as thought to be contributing to patient's dizziness. Today she reports continued dizziness, described as worse with head movement and standing - [employer]-Hallpike Maneuver checked by PT and negative. She also reported nausea with continued vomiting - Abdominal Xray checked and with apparent constipation. Her blood pressure remains reasonable. No other events reported. Remains afebrile. Exam Narrative Exam Narrative: General: Patient appears comfortable, OOB in chair, AAOX3, NAD Neck: Supple CV: Regular, nontachycardic, S1S2, No rubs, murmurs, or gallops. Pulmonary: Clear to auscultation bilaterally, no crackles, wheezing, or rhonchi Abdomen: + Bowel Sounds, soft, nontender, nondistended Vascular: No lower extremity edema Psych: Normal mood and affect. Objective Objective Clinical Data: Abnormal lab results 10/22/18 10/22/18 Range/Units 06:30 06:30 RDW 16.6 H (11.7-14.6) % Absolute Monocytes 0.81 H (0.11-0.7) k/cumm Sodium 130 L (136-145) mmol/L Chloride 97 L (98-107) mmol/L BUN 21 H (7-18) mg/dL Creatinine 1.43 H (0.55-1.02) mg/dL Vital Signs Temperature 36.9 C 10/22/18 07:30 Temperature Source Tympanic 10/22/18 07:30 Pulse 96 H 10/22/18 14:54 Pulse Rhythm Regular 10/22/18 08:10 Pulse 69 10/17/18 17:31 Respiratory Rate 18 10/22/18 07:30 Respiratory Effort Non-Labored 10/22/18 08:10 Respiratory Depth Normal 10/22/18 08:10 Respiratory Pattern Normal 10/22/18 08:10 Blood Pressure 122/67 10/22/18 14:50 Blood Pressure Mean 68 10/17/18 17:30 Blood Pressure Position Sitting 10/17/18 11:35 Pulse Oximetry 95 10/22/18 07:30 Oxygen Delivery Method Room Air 10/22/18 07:30 Oxygen Flow Rate 0 10/22/18 07:30 Pain Level 4 10/22/18 13:01 Comment 10/22/18 14:50 Intake & Output 10/21/18 10/22/18 10/22/18 23:59 11:59 23:59 Intake Total 250 / 1325 510 / 510 Output Total 300 / 1250 450 / 450 Balance -50 / 75 60 / 60 Intake: IV Oral 240 / 1315 510 / 510 Output: Urine 450 / 450 Emesis 300 / 950 Other: Urine Color Yellow Urine Appearance Clear Clear Stool Size Small Stool Characteristics Soft Formed Emesis Description Retching Undigested Food Voiding Methods Toilet Toilet Laboratory Results WBC 8.48 k/cumm (4.4-10.8) 10/22/18 06:30 RBC 4.09 m/cumm (4.00-5.20) 10/22/18 06:30 Hgb 12.2 g/dL (12.0-15.5) 10/22/18 06:30 Hct 37.7 % (36.0-46.0) 10/22/18 06:30 MCV 92.2 fL (80-95) 10/22/18 06:30 MCH 29.8 pg (27.0-33.0) 10/22/18 06:30 MCHC 32.4 g/dL (32.0-36.0) 10/22/18 06:30 RDW 16.6 % (11.7-14.6) H 10/22/18 06:30 Plt Count 237 x1000/uL (130-400) 10/22/18 06:30 MPV 9.4 fL (8.0-11.0) 10/22/18 06:30 Immature Gran % 0.5 10/22/18 06:30 Neutrophils % 67.8 10/22/18 06:30 Lymphocytes % 19.1 10/22/18 06:30 Monocytes % 9.6 10/22/18 06:30 Eosinophils % 2.4 10/22/18 06:30 Basophils % 0.6 10/22/18 06:30 Absolute Neutrophils 5.76 k/cumm (1.2-6.7) 10/22/18 06:30 Absolute Lymphocytes 1.62 k/cumm (1.2-3.4) 10/22/18 06:30 Absolute Monocytes 0.81 k/cumm (0.11-0.7) H 10/22/18 06:30 Absolute Eosinophils 0.20 k/cumm (0.0-0.7) 10/22/18 06:30 Absolute Basophils 0.05 k/cumm (0.0-0.2) 10/22/18 06:30 Differential Comment Diff reviewed 10/18/18 07:10 RBC Morphology Normal 10/18/18 07:10 Sodium 130 mmol/L (136-145) L 10/22/18 06:30 Potassium 4.0 mmol/L (3.5-5.1) 10/22/18 06:30 Chloride 97 mmol/L (98-107) L 10/22/18 06:30 Carbon Dioxide 25.7 mmol/L (21.0-32.0) 10/22/18 06:30 Anion Gap 7.3 mmol/L (3-11) 10/22/18 06:30 BUN 21 mg/dL (7-18) H 10/22/18 06:30 Creatinine 1.43 mg/dL (0.55-1.02) H 10/22/18 06:30 Estimated GFR/1.73 m2 35.13 (mL/min/1.73m2) 10/22/18 06:30 Glucose 97 mg/dL (70-100) 10/22/18 06:30 Calcium 9.8 mg/dL (8.5-10.1) 10/22/18 06:30 Magnesium 2.1 mg/dL (1.8-2.4) 10/22/18 06:30 Total Bilirubin 0.4 mg/dL (0.2-1.0) 10/19/18 06:32 Conjugated Bilirubin < 0.05 mg/dL (0.00-0.20) 10/19/18 06:32 AST 17 U/L (15-37) 10/19/18 06:32 ALT 14 U/L (12-78) 10/19/18 06:32 Alkaline Phosphatase 56 U/L (46-116) 10/19/18 06:32 Troponin I 0.04 ng/mL (0.00-0.06) 10/18/18 07:10 NT-Pro-B Natriuret Pep 1640 pg/mL (-299) H 10/17/18 12:30 Total Protein 6.6 g/dL (6.4-8.2) 10/19/18 06:32 Albumin 2.8 g/dL (3.4-5.0) L 10/19/18 06:32 Urine Color Yellow (Yellow) 10/17/18 13:56 Urine Clarity Clear 10/17/18 13:56 Urine pH 7.0 (5-8) 10/17/18 13:56 Ur Specific [place] 1.015 (1.005-1.025) 10/17/18 13:56 Urine Protein Negative mg/dL (Negative) 10/17/18 13:56 Urine Ketones Negative mg/dL (Negative) 10/17/18 13:56 Urine Blood Negative (Negative) 10/17/18 13:56 Urine Nitrite Negative (Negative) 10/17/18 13:56 Urine Bilirubin Negative (Negative) 10/17/18 13:56 Urine Urobilinogen 0.2 EU/dL (Up TO 0.2) 10/17/18 13:56 Ur Leukocyte Esterase Small (Negative) H 10/17/18 13:56 Urine RBC Not Applicable 10/17/18 13:56 Urine WBC 20-50 HPF (0-5) 10/17/18 13:56 Ur Epithelial Cells Many HPF (Negative) 10/17/18 13:56 Urine Crystals Negative HPF (Negative) 10/17/18 13:56 Urine Bacteria Few HPF (Negative) 10/17/18 13:56 Urine Mucus Negative (Negative) 10/17/18 13:56 Ur Culture Indicated? No/sq. contamination 10/17/18 13:56 Urine Glucose Negative mg/dL (Negative) 10/17/18 13:56 Theophylline 10.7 ug/ml (10.0-20.0) 10/18/18 07:10
--- NOTE | 2018-10-22 15:47 | PDOC.CMPRO ---
- If Service Date Differs Date of service: 10/22/18 Time of Service: 15:48 Care Management Progress Note S/O: Antonia will be seen by PT today question of vertigo with continued symptoms of nausea and vomiting. She is receiving Zofran, and Compazine she will have a KUB today to rule out acute process. Antonia remains acute status. Medication adjustments in progress. PT and OT continue to consult. She plans to return home with her daughter when she is medically ready. . A: Antonia is a 83 year old female admitted with ZAFAR, hypercalcemia, and dehydration. Symptomatic dizziness, and ambulatory dysfunction. P:Antonia remains acute no change in status today. She continues to be monitored by Telemetry. She will return to her daughters when she is ready for discharge, follow up with primary care. CM to continue to provide support and ongoing discharge planning and education to Pt and family.
[2018-10-22] MEDS: cloNIDine 0.1 MG TAB PO (19:57)
[2018-10-22] MEDS: Metoprolol 25 MG TAB PO (21:20)
[2018-10-23] VITALS (18 sets, daily range): BP systolic 88–134; BP diastolic 44–79; PULSE 65–125; RESP 16–20; TEMP 36.2–37.5; O2SAT 93–98
[2018-10-23 07:08] LABS: Abs Immature Grans 0.04 k/cumm (0.0-0.09); Absolute Eosinophil Count 0.16 k/cumm (0.0-0.7); Absolute Lymphocyte Count 1.38 k/cumm (1.2-3.4); Absolute Monocyte Count 0.96 k/cumm (0.11-0.7); Absolute Neutrophil Count 8.57 k/cumm (1.2-6.7); Basophils % 0.4; Eosinophils % 1.4; HCT 37.7 % (36.0-46.0); HGB 12.1 g/dL (12.0-15.5); Immature Grans % 0.4; Lymphocytes % 12.4; Mean Corp. HGB Concentration 32.1 g/dL (32.0-36.0); Mean Corpuscular Hemoglobin 29.7 pg (27.0-33.0); Mean Corpuscular Volume 92.6 fL (80-95); Mean Platelet Volume 9.4 fL (8.0-11.0); Monocytes % 8.6; Neutrophils % 76.8; Platelet Count 241 x1000/uL (130-400); RBC 4.07 m/cumm (4.00-5.20); RBC Distribution Width 16.7 % (11.7-14.6); White Blood Cell Count 11.16 k/cumm (4.4-10.8)
[2018-10-23 07:11] LABS: Absolute Basophil Count 0.04 k/cumm (0.0-0.2)
[2018-10-23 07:13] LABS: Anion Gap 8.2 mmol/L (3-11); BUN 28 mg/dL (7-18); CO2 27.8 mmol/L (21.0-32.0); CREATININE 2.09 mg/dL (0.55-1.02); Calcium 10.2 mg/dL (8.5-10.1); Chloride 95 mmol/L (98-107); Estimated GFR 22.67 (mL/min/1.73m2); Glucose 97 mg/dL (70-100); Magnesium 2.4 mg/dL (1.8-2.4); Potassium 3.8 mmol/L (3.5-5.1); Sodium 131 mmol/L (136-145)
[2018-10-23] MEDS: hydrALAZINE 10 MG TAB PO ×2 (08:05→20:04)
[2018-10-23] MEDS: Normal Saline Flush 10 ML SYR IVP (08:05)
[2018-10-23] MEDS: Docusate Sodium 100 MG CAP PO ×2 (08:06→20:04)
[2018-10-23] MEDS: Pantoprazole 40 MG TABCR PO (08:06)
[2018-10-23] MEDS: Apixaban 2.5 MG TAB PO ×2 (08:06→20:04)
[2018-10-23] MEDS: Furosemide 20 MG TAB PO (08:07)
[2018-10-23] MEDS: Polyethylene Glycol 3350 17 GM PACKET PO (09:14)
--- NOTE | 2018-10-23 11:36 | PT.INTREAT ---
Date of service: 10/23/18 Time of Service: 09:20 PT Notes Inpatient Physical Therapy Treatment Note [facility] Date: 03/25/19 PRECAUTIONS: Standard SUBJECTIVE: Nursing reports that her bp is fairly low today. OBJECTIVE: Sit-stand: CGA Stand-sit: CGA GAIT Assistive Device: FWW Weight bearing: Full Assist: CGA Distance: Marching in place and standing to F due to her low bp. THEREX: Pt completed UE and LE ther ex as per flow sheet. STAIRS:[] ASSESSMENT: Pt tolerated today's session well. Pt was somewhat fatigued after our session today. PLAN: Cont as per PT POC. TREATMENT CODE/TIME: 9:20-9:40 (20) TP
--- NOTE | 2018-10-23 12:11 | NUR.NOTE ---
Nursing Note: 0815: RN reports to CC, Zabrina Smith, that pt is concerned about why she is drooling. RN investigates pt's statement and pt states she has been drooling out of the left side of her mouth for 3-4 days. pt states she has to wipe her mouth frequently. CC to discuss in am meeting with .
--- NOTE | 2018-10-23 13:55 | CHAPLAIN ---
Antonia seemed discouraged today. She said she hasn't been able to visit her at [facility] in [place] in a week, and when she speaks to him on the phone, he doesn't understand she isn't there visiting. Antonia's usually daughter brings to [place] (they live in [place]) and then the daughter works at night. Antonia said she is worried about the stress her daughter in under, heading to [place] to visit her dad, and then coming to [facility] to visit her mom before going to work at night. Antonia is also frustrated being here without results she said.
--- NOTE | 2018-10-23 16:51 | PGE_ITS ---
Date of Service Date of service: 10/23/18 Time of Service: 16:50 Assessment and Plan (1) Dizziness: Current visit: Yes Status: Acute Unsure of exact etiology - symptoms appear to be present but improved. Although attributed to potential side-effect of Dapsone (Currently on hold), patient also reports a positional aspect to her symptoms (described with head movements). Possibility for BPPV, but [place]-Hallpike Maneuver did not duplicate symptoms. CT of the head checked and negative - MRI cannot be obtained locally due to the presence of her PPM. Consider further neurological testing, completion of Ryan Maneuver by PT, and potential for SNF placement for ongoing Vestibular exercises - unsure of how safe patient will be for discharge given falls. Symptoms may also be post-con cussive. (2) Nausea: Current visit: Yes Status: Acute Nausea with vomiting and abdominal discomfort - Abdominal Xray with evidence of constipation. Will continue bowel regimen, given additional enema today, and reevaluate patient's symptoms. (3) Hypertension: Current visit: No Status: Chronic Blood pressure reasonable, despite YOBANY-I remaining on hold in setting of ZAFAR. Plan on initiating YOBANY-I in the future given history of CHF. Discontinue recently initiated CCB given hypotension and concurrent dizziness, although doubt current correlation. Decrease dosing of Hydralazine to home dosing of BID, and continue Clonidine to avoid rebound, but with strict hold parameters. (4) ZAFAR (acute kidney injury): Current visit: No Status: Acute In setting of dehydration from increased in lasix dose, as well as concurrent administration of YOBANY-I and ARB. Continue to monitor renal function, avoid nephrotoxins, and renally dose medications when appropriate. (5) CKD (chronic kidney disease): Current visit: No Status: Chronic (6) Hypercalcemia: Current visit: No Status: Acute Initially significantly elevated in setting of dehydration, now normal to minimally elevated only. Mild hypercalcemia is chronic, with a normal PTH level recently checked, and with patient on chronic supplementation with Calcium, currently on hold. Plans for discontinution of supplemental Ca at time of discharge. (7) PAF (paroxysmal atrial fibrillation): Current visit: No Status: Chronic Continue BB. On anticoagulation with Apixaban. (8) Malfunction of cardiac pacemaker: Current visit: Yes Status: Acute Apparent evidence of atrial undersensing by review of patient's telemetry strip by [facility]. Will need outpatient follow-up for pacer interrogation and adjustment. (9) CHF (congestive heart failure): Current visit: No Status: Chronic Evidence of both systolic and diastolic CHF (LV 45-50%) by last echo in 2016, with an EF of 50-55% by ECHO 09/2018. Currently with Furosemide back on hold given increase in creatine (previously at lower dose, QOD dosing), YOBANY-I on hold as above. Continue beta-eden. (10) Asthma: Current visit: No Status: Chronic Appears quiescent. Continue home regimen of Theophylline, inahler therapy. (11) Abnormal CT scan of lung: Current visit: Yes Status: Acute Previously significant abnormal imaging of the lungs, with CT at the time (08/2018) showing evidence of diffuse b/l R>L intrapulmonary radiodensities. Mrs. Win did not respond to antibiotics, but was noted to have improvement with the addition of prednisone. At the time of her discharge from the hospital the differential included Amiodarone Toxicity, atypical infection, or autoimmune/inflammatory process. Important to note that she did not respond to diuresis while here at the hospital, but was deemed likely secondary to fluid overload by pulmonary evaluation as an outpatient. Current CXR with apparent improvement, and patient feels well and at her baseline. Monitor. (12) DVT prophylaxis: Current visit: No Status: Acute On Apixaban. (13) Advance directive on file: Current visit: No Status: Acute DNR/DNI Subjective Interval history since last seen: 83-year-old woman with a prior history of HTN and PAF, admitted from [facility] Emergency Department on 10/17 with a diagnosis of Dizziness and ZAFAR. Mrs. Win has a past medical history significant for CHF with an LVEF of 45- 50% previously now 50-55%, as well as mention of diastolic dysfunction by prior echo. She has a history of paroxysmal AFib currently in sinus rhythm, previously maintained on antiarrhythmic therapy with amiodarone, and on chronic anticoagulation. 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 Review of her labs indicate a mild hypercalcemia in the past, unknown of the origin or prior work- up of this, as well as presence of supplemental Calcium and Vitamin D. She was admitted here approximately one month ago with hypoxia and abnormal imaging of her lungs, suspected secondary to Amiodarone toxicity. The patient presented to the ED with reported 1 week history of dizziness, especially with getting up and with ambulation. She suffered a fall at home but did not lose consciousness. Her work-up in the ED showed no evidence of infection, but did show ZAFAR superimposed on CKD, as well as hypercalcemia. Review of her history also revealed recent increase in lasix dose, and addition of a low dose ARB on top of patient's YOBANY- I. Following admission the patient's lasix, ARB, and YOBANY-I were held, and her kidney function has improved. She was also on dapsone for a reported diagnosis of Bullous Pemphigoid, discontinued as thought to be contributing to patient's dizziness. However, patient continues to report improved but stil present dizziness, described as worse with head movement and standing - Ashli-Hallpike Maneuver checked by PT previously and negative. She also reported nausea without any further vomiting, but described dry heaves - Abdominal Xray checked and with apparent constipation. Her blood pressure remains reasonable. No other events reported. Remains afebrile. Exam Narrative Exam Narrative: General: Patient appears comfortable, OOB in chair, AAOX3, NAD Neck: Supple CV: Regular, nontachycardic, S1S2, No rubs, murmurs, or gallops. Pulmonary: Clear to auscultation bilaterally, no crackles, wheezing, or rhonchi Abdomen: + Bowel Sounds, soft, nontender, nondistended Vascular: No lower extremity edema Psych: Normal mood and affect. Objective Objective Clinical Data: Abnormal lab results 10/23/18 10/23/18 Range/Units 06:05 06:05 WBC 11.16 H D (4.4-10.8) k/cumm RDW 16.7 H (11.7-14.6) % Absolute Neutrophils 8.57 H (1.2-6.7) k/cumm Absolute Monocytes 0.96 H (0.11-0.7) k/cumm Sodium 131 L (136-145) mmol/L Chloride 95 L (98-107) mmol/L BUN 28 H (7-18) mg/dL Creatinine 2.09 H (0.55-1.02) mg/dL Calcium 10.2 H (8.5-10.1) mg/dL Vital Signs Temperature 37.1 C 10/23/18 15:47 Temperature Source Tympanic 10/23/18 15:47 Pulse 109 H 10/23/18 15:47 Pulse Rhythm Regular 10/23/18 09:31 Pulse 69 10/17/18 17:31 Respiratory Rate 20 10/23/18 15:47 Respiratory Effort Non-Labored 10/23/18 09:31 Respiratory Depth Normal 10/23/18 09:31 Respiratory Pattern Normal 10/23/18 09:31 Blood Pressure 132/79 10/23/18 15:47 Blood Pressure Mean 68 10/17/18 17:30 Blood Pressure Position Sitting 10/17/18 11:35 Pulse Oximetry 95 10/23/18 15:47 Oxygen Delivery Method Room Air 10/23/18 15:47 Oxygen Flow Rate 0 10/23/18 15:47 Pain Level 0 10/23/18 11:35 Comment 10/23/18 15:47 Intake & Output 10/22/18 10/23/18 10/23/18 23:59 11:59 23:59 Intake Total 330 / 840 850 / 1350 500 / 1350 Output Total 700 / 1150 300 / 300 Balance -370 / -310 550 / 1050 500 / 1050 Weight 50.3 kg Intake: Oral 330 / 840 850 / 1350 500 / 1350 Output: Urine 300 / 300 Emesis 700 / 700 Other: Urine Color Yellow Urine Appearance Clear Clear Urine Odor Normal Comment mixed w enema results voids in the bathroom Stool Size Moderate Small Small Stool Characteristics Formed Soft Hard Hard Brown Bloody Emesis Description Undigested Food Gastric Occult Blood Negative Voiding Methods Toilet Laboratory Results WBC 11.16 k/cumm (4.4-10.8) H D 10/23/18 06:05 RBC 4.07 m/cumm (4.00-5.20) 10/23/18 06:05 Hgb 12.1 g/dL (12.0-15.5) 10/23/18 06:05 Hct 37.7 % (36.0-46.0) 10/23/18 06:05 MCV 92.6 fL (80-95) 10/23/18 06:05 MCH 29.7 pg (27.0-33.0) 10/23/18 06:05 MCHC 32.1 g/dL (32.0-36.0) 10/23/18 06:05 RDW 16.7 % (11.7-14.6) H 10/23/18 06:05 Plt Count 241 x1000/uL (130-400) 10/23/18 06:05 MPV 9.4 fL (8.0-11.0) 10/23/18 06:05 Immature Gran % 0.4 10/23/18 06:05 Neutrophils % 76.8 10/23/18 06:05 Lymphocytes % 12.4 10/23/18 06:05 Monocytes % 8.6 10/23/18 06:05 Eosinophils % 1.4 10/23/18 06:05 Basophils % 0.4 10/23/18 06:05 Absolute Neutrophils 8.57 k/cumm (1.2-6.7) H 10/23/18 06:05 Absolute Lymphocytes 1.38 k/cumm (1.2-3.4) 10/23/18 06:05 Absolute Monocytes 0.96 k/cumm (0.11-0.7) H 10/23/18 06:05 Absolute Eosinophils 0.16 k/cumm (0.0-0.7) 10/23/18 06:05 Absolute Basophils 0.04 k/cumm (0.0-0.2) 10/23/18 06:05 Differential Comment Diff reviewed 10/18/18 07:10 RBC Morphology Normal 10/18/18 07:10 Sodium 131 mmol/L (136-145) L 10/23/18 06:05 Potassium 3.8 mmol/L (3.5-5.1) 10/23/18 06:05 Chloride 95 mmol/L (98-107) L 10/23/18 06:05 Carbon Dioxide 27.8 mmol/L (21.0-32.0) 10/23/18 06:05 Anion Gap 8.2 mmol/L (3-11) 10/23/18 06:05 BUN 28 mg/dL (7-18) H 10/23/18 06:05 Creatinine 2.09 mg/dL (0.55-1.02) H 10/23/18 06:05 Estimated GFR/1.73 m2 22.67 (mL/min/1.73m2) 10/23/18 06:05 Glucose 97 mg/dL (70-100) 10/23/18 06:05 Calcium 10.2 mg/dL (8.5-10.1) H 10/23/18 06:05 Magnesium 2.4 mg/dL (1.8-2.4) 10/23/18 06:05 Total Bilirubin 0.4 mg/dL (0.2-1.0) 10/19/18 06:32 Conjugated Bilirubin < 0.05 mg/dL (0.00-0.20) 10/19/18 06:32 AST 17 U/L (15-37) 10/19/18 06:32 ALT 14 U/L (12-78) 10/19/18 06:32 Alkaline Phosphatase 56 U/L (46-116) 10/19/18 06:32 Troponin I 0.04 ng/mL (0.00-0.06) 10/18/18 07:10 NT-Pro-B Natriuret Pep 1640 pg/mL (-299) H 10/17/18 12:30 Total Protein 6.6 g/dL (6.4-8.2) 10/19/18 06:32 Albumin 2.8 g/dL (3.4-5.0) L 10/19/18 06:32 Urine Color Yellow (Yellow) 10/17/18 13:56 Urine Clarity Clear 10/17/18 13:56 Urine pH 7.0 (5-8) 10/17/18 13:56 Ur Specific [place] 1.015 (1.005-1.025) 10/17/18 13:56 Urine Protein Negative mg/dL (Negative) 10/17/18 13:56 Urine Ketones Negative mg/dL (Negative) 10/17/18 13:56 Urine Blood Negative (Negative) 10/17/18 13:56 Urine Nitrite Negative (Negative) 10/17/18 13:56 Urine Bilirubin Negative (Negative) 10/17/18 13:56 Urine Urobilinogen 0.2 EU/dL (Up TO 0.2) 10/17/18 13:56 Ur Leukocyte Esterase Small (Negative) H 10/17/18 13:56 Urine RBC Not Applicable 10/17/18 13:56 Urine WBC 20-50 HPF (0-5) 10/17/18 13:56 Ur Epithelial Cells Many HPF (Negative) 10/17/18 13:56 Urine Crystals Negative HPF (Negative) 10/17/18 13:56 Urine Bacteria Few HPF (Negative) 10/17/18 13:56 Urine Mucus Negative (Negative) 10/17/18 13:56 Ur Culture Indicated? No/sq. contamination 10/17/18 13:56 Urine Glucose Negative mg/dL (Negative) 10/17/18 13:56 Theophylline 10.7 ug/ml (10.0-20.0) 10/18/18 07:10
[2018-10-23] MEDS: Acetaminophen 325 MG TAB PO (20:03)
[2018-10-23] MEDS: Senna TAB 1 TAB PO (20:04)
[2018-10-23] MEDS: cloNIDine 0.1 MG TAB PO (20:04)
[2018-10-24] VITALS (11 sets, daily range): BP systolic 106–142; BP diastolic 58–78; PULSE 68–100; RESP 16–18; TEMP 36.4–37.4; O2SAT 92–96
[2018-10-24 06:56] LABS: Abs Immature Grans 0.03 k/cumm (0.0-0.09); Absolute Basophil Count 0.05 k/cumm (0.0-0.2); Absolute Eosinophil Count 0.18 k/cumm (0.0-0.7); Absolute Lymphocyte Count 1.54 k/cumm (1.2-3.4); Absolute Monocyte Count 0.86 k/cumm (0.11-0.7); Absolute Neutrophil Count 5.67 k/cumm (1.2-6.7); Basophils % 0.6; Eosinophils % 2.2; HGB 11.9 g/dL (12.0-15.5); Immature Grans % 0.4; Lymphocytes % 18.5; Mean Corp. HGB Concentration 32.2 g/dL (32.0-36.0); Mean Corpuscular Hemoglobin 29.8 pg (27.0-33.0); Mean Corpuscular Volume 92.5 fL (80-95); Mean Platelet Volume 9.3 fL (8.0-11.0); Monocytes % 10.3; Platelet Count 232 x1000/uL (130-400); RBC Distribution Width 16.6 % (11.7-14.6); White Blood Cell Count 8.33 k/cumm (4.4-10.8)
[2018-10-24 07:06] LABS: Anion Gap 8.7 mmol/L (3-11); BUN 26 mg/dL (7-18); CO2 26.3 mmol/L (21.0-32.0); Calcium 10.5 mg/dL (8.5-10.1); Chloride 97 mmol/L (98-107); Estimated GFR 25.31 (mL/min/1.73m2); Glucose 95 mg/dL (70-100); Magnesium 2.2 mg/dL (1.8-2.4); Potassium 3.9 mmol/L (3.5-5.1); Sodium 132 mmol/L (136-145)
[2018-10-24 07:28] LABS: Diff Comment Agrees w/ Instrument; RBC Morphology Normal
[2018-10-24] MEDS: hydrALAZINE 10 MG TAB PO ×2 (07:39→19:19)
[2018-10-24] MEDS: Docusate Sodium 100 MG CAP PO ×2 (07:40→19:19)
[2018-10-24] MEDS: Apixaban 2.5 MG TAB PO ×2 (07:40→19:19)
[2018-10-24] MEDS: Pantoprazole 40 MG TABCR PO (07:40)
[2018-10-24 09:33] LABS: ALT 17 U/L (12-78); AST 41 U/L (15-37); Albumin 2.9 g/dL (3.4-5.0); Alkaline Phosphatase 81 U/L (46-116); Bilirubin, Direct 0.12 mg/dL (0.00-0.20); Bilirubin, Total 0.4 mg/dL (0.2-1.0); Lipase 121 U/L (73-393); Total Protein 6.7 g/dL (6.4-8.2)
[2018-10-24] MEDS: Normal Saline Flush 10 ML SYR IVP (09:38)
[2018-10-24] MEDS: Metoprolol 25 MG TAB PO ×2 (09:38→21:34)
[2018-10-24] MEDS: Potassium Chloride 10 MEQ TABCR PO (11:27)
--- NOTE | 2018-10-24 11:29 | PDOC.CMDIS ---
Care Management Discharge Reason for Hospitalization: Acute kidney injury
--- NOTE | 2018-10-24 14:35 | PT.INTREAT ---
Date of service: 10/24/18 Time of Service: 14:35 PT Notes Inpatient Physical Therapy Treatment Note [facility] Date: 10/24/2018 PRECAUTIONS: Fall SUBJECTIVE: Antonia reprots that she would like to go home. She is agreeable to participate in PT. OBJECTIVE: PAIN: No c/o pain BED MOBILITY/TRANSFERS Sit-stand: SBA Stand-sit: SBA GAIT Assistive Device: FWW Weight bearing: Full Assist: SBA Distance: 150' Deviation: Seated rest x1; Gait training without AD x20' with LOB x1 requiring Mod A x2 for recovery THEREX: Patient completed a LE strengthening program, in a standing position, as per flow sheet. She required rests between exercises due to SOB. She c/o dizziness with changes in position. ASSESSMENT: Patient tolerated a progression in gait distance with FWW support and SBA, requiring seated rest x1 due to fatigue. Patient would benefit from continued gait and transfer training, as well as strengthening for improved mobility and improved activity tolerance. PLAN: Continue with PT's POC TREATMENT CODE/TIME: 30 minutes; 86543, 84282
--- NOTE | 2018-10-24 15:28 | PT.INTREAT ---
Date of service: 10/24/18 Time of Service: 10:52 PT Notes Inpatient Physical Therapy Treatment Note [facility] Date: 10/24/2018 PRECAUTIONS: Fall. Standard. SUBJECTIVE: Patient reports that she slept better last night. She denies nausea and vomiting. She does report continued 'shakiness' (not dizziness) that is limiting her mobility performance. Patient states that she was able to recover well from last therapy session without undue fatigue. She states that she is unsure whether she is going home today. She reports that the Ryan maneuver done to her is not [id number] she would want to do when she is at home. OBJECTIVE: Patient seen resting on recliner with feet elevated. RANJITH ZHU. PAIN: mild pain/ache on forehead BED MOBILITY/TRANSFERS Rolling L/R: SBA Supine-sit: SBA Sit-supine: SBA Sit-stand: BED MOBILITY/TRANSFERS Rolling L/R: CGA Supine-sit: CGA Sit-supine: CGA Sit-stand: CGA Stand-sit: CGA Bed-Chair: CGA Chair-bed: CGA GAIT: CONCRETE FENCE BUILDER facilitated gait activity with patient today. See CONCRETE FENCE BUILDER's trreatment notes for today. THEREX: CONCRETE FENCE BUILDER provided therapeuitc exercises for patient today. See CONCRETE FENCE BUILDER's trreatment notes for today. SPECIAL TESTS: Ashli Hallpike Maneuver produced no nystagmus nor did it provoke symptoms of dizziness. Patient did complain of her neck hurting during the activity due to preexisting cervical range of motion deficits. Neck pain subsided with completion of activity. Patient tested positive for Romberg Test twice with LOB sideways to L for both trials. Patient also had mild to moderate difficulty performing rapid alternating movements done 5 x for three sets including forearm pronation-supination, [id number], [id number], and finger/hand tapping as well as toe tapping. ASSESSMENT: Patient may benefit from further neurologic testing to determine instigating factors for symptoms resulting to gait instability and balance impairment. PLAN: Patient to progress with mobility level, functional performance, and knowledge of HEP to achieve previously established goals. TREATMENT CODE/TIME: 24204 32 minutes beginning at 10:52 AM.
--- NOTE | 2018-10-24 15:32 | PTTR_ITS ---
Date of service: 10/24/18 Time of Service: 10:52 PT Notes Inpatient Physical Therapy Treatment Note [facility] Date: 10/24/2018 PRECAUTIONS: Fall. Standard. SUBJECTIVE: Patient reports that she slept better last night. She denies nausea and vomiting. She does report continued 'shakiness' (not dizziness) that is limiting her mobility performance. Patient states that she was able to recover well from last therapy session without undue fatigue. She states that she is unsure whether she is going home today. She reports that the Ryan maneuver done to her is not [id number] she would want to do when she is at home. OBJECTIVE: Patient seen resting on recliner with feet elevated. RANJITH ZHU. PAIN: mild pain/ache on forehead BED MOBILITY/TRANSFERS Rolling L/R: SBA Supine-sit: SBA Sit-supine: SBA Sit-stand: BED MOBILITY/TRANSFERS Rolling L/R: CGA Supine-sit: CGA Sit-supine: CGA Sit-stand: CGA Stand-sit: CGA Bed-Chair: CGA Chair-bed: CGA GAIT: MYSQL DEVELOPER facilitated gait activity with patient today. See MYSQL DEVELOPER's trreatment notes for today. THEREX: MYSQL DEVELOPER provided therapeuitc exercises for patient today. See MYSQL DEVELOPER's trreatment notes for today. SPECIAL TESTS: Ashli Hallpike Maneuver produced no nystagmus nor did it provoke symptoms of dizziness. Patient did complain of her neck hurting during the activity due to preexisting cervical range of motion deficits. Neck pain subsided with completion of activity. Patient tested positive for Romberg Test twice with LOB sideways to L for both trials. Patient also had mild to moderate difficulty performing rapid alternating movements done 5 x for three sets including forearm pronation-supination, [id number], [id number], and finger/hand tapping as well as toe tapping. ASSESSMENT: Patient may benefit from further neurologic testing to determine instigating factors for symptoms resulting to gait instability and balance impairment. PLAN: Patient to progress with mobility level, functional performance, and knowledge of HEP to achieve previously established goals. TREATMENT CODE/TIME: 76700 32 minutes beginning at 10:52 AM.
--- NOTE | 2018-10-24 15:43 | PDOC.CMPRO ---
Care Management Progress Note S/O-Met with Antonia today. She was scheduled to go home today with her daughter, but MD decided she needed neurology evaluation, so d/c is delayed until tomorrow. PT has recommended a walker, so discussed DME options with her and she chose [facility]. A walker was issued to her from [facility]. has also recommended she has HH services for RN, PT and OT, so this will be arranged upon d/c. A-83 yo woman admitted with dizziness, nausea, abnormal CT lung. P-d/c home with daughter and new HH services for RN, PT and OT. Daughter to transport.
--- NOTE | 2018-10-24 15:53 | NCONE_ITS ---
Date of service: 10/24/18 Time of Service: 15:44 Assessment and Plan (1) Dizziness: Current visit: Yes Status: Acute (2) Peripheral neuropathy: Current visit: Yes Status: Acute (3) Gait abnormality: Current visit: Yes Status: Acute Ms. Win is an 83 year-old, right-handed woman with a complicated medical history including memory loss who was admitted with headaches, nausea, dizziness, and falls with improving but persistent symptoms. Unfortunately, her clinical history is limited by her memory problems and thus, it is really unclear what is going on. On exam, she has a mild peripheral neuropathy. This may be the cause of her gait imbalance as described by physical therapy. She has had a recent TSH. I recommend checking a B12, MMA, A1c, and SPEP as further work-up (this can be done outpatient). Clinically, her symptoms sound like an episodic, positionally related vertigo most consistent with BPPV, if her clinical history is to believe. In addition to continued PT for her gait imbalance, I also recommend vestibular therapy until symptoms resolve. She should follow-up in neurology clinic in the next 4-6 weeks. Please call with any questions or concerns. History of Present Illness Chief Complaint: dizziness Narrative: Handedness: right. HPI: Ms. 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 She was admitted on 10/17/2018 with a 1 week history of headache, dizziness, nausea, generalized weakness, and a fall, also 5 days prior, in which she hit the left side of her head without loss of consciousness. In the emergency room, she was found to have acute on chronic renal insufficiency along with hypercalcemia. She had been started on dapsone by dermatology 1 week prior. This was held upon admiss ion as possibly contributing to her dizziness. Her initial dizziness was attributed to her acute renal failure but her creatinine returned to baseline, with continued dizziness. Hypertensive urgency was another possibility as a cause of her dizziness, but her blood pressures have been under good control since 10/20/2018. Orthostatic hypotension was also possibility, but her fluids have been replaced and she continues to complain of dizziness. On 10/18/2018, she was noted to have left eye deviation at approximately 8 in the morning. Ms. Win could not give any information on these findings. Family reported that this has occurred in the past and is due to known strabismus. Thus, there appears to be an element of cognitive impairment which is making the history somewhat muddied. On 10/19/2018, she was first evaluated by physical therapy but did not participate. She refused to sit up and participate due to ongoing dizziness. She was given Zofran earlier in the day and Compazine later in the day. By 10/20/2018, her headache, nausea, vomiting had resolved with Compazine. Her dizziness was improved but still present. She was walking with physical therapy at that point. On 10/22/2018, PT performed a [place]-Hallpike which was negative. Dizziness and gait were both improving, however, she continued to complain of nausea. It appears that her dizziness has improved since admission, however continues to persist, and is positionally related. At present she complains of dizziness only when looking up or when moving her head side to side quickly. She denies lightheadedness or a spinning sensation. She describes it as a blurriness without balance impairment occurring 2-5x per day at present and lasting only a second or two. This description is much different than what she has provided to other providers. Further, during PT, she was noted to look up and away, and then suddenly lurch to the side. Using a walker has abated this, per primary team. She denies any nausea at present, but notes that she dry-heaved earlier today. She says this is not unusal for her. She also reports no headaches in the last few days with a baseline headache frequency of 1-2x per week, easily treated with APAP. She underwent a CT head on 10/17/2018 as well as 10/18/2018. In the first CT I see a right frontal hypodensity. It is present on the CT head from September 2017. She has chronic white matter changes on the images. There are no acute findings and overall her CT head remained stable over time. She cannot undergo an MRI due to her pacemaker. She cannot undergo CTA imaging due to her kidney status. Consults Requesting physician: Erasmo Woods Review of Systems Review of Systems All systems reviewed & are unremarkable except as noted in HPI and below PFSH Medical History Hypercalcemia (Chronic) CHF (congestive heart failure) (Chronic) Presence of permanent cardiac pacemaker (Chronic) PAF (paroxysmal atrial fibrillation) (Chronic) Hypertension (Chronic) Pulmonary hypertension (Chronic) Asthma (Chronic) CKD (chronic kidney disease) (Chronic) Chronic kidney disease (Acute) Asthma (Chronic) Atrial fibrillation (Chronic) CHF (congestive heart failure) (Chronic) COPD (chronic obstructive pulmonary disease) (Chronic) Depression (Chronic) HTN (hypertension) (Chronic) Surgical History History of thoracic aortic aneurysm repair (Chronic) AICD (automatic cardioverter/defibrillator) present (Acute) H/O thoracic aortic aneurysm repair (Acute) Pacemaker (Acute) Social History Smoking/Tobacco Use Status: Never Alcohol Intake: never Substance use type: does not use Do you feel safe at home: Yes Do you feel safe in your relationship?: Yes Visit Medication and Allergies Active Medications Generic Name Dose Route Start Last Admin Trade Name Freq PRN Reason Stop Dose Admin Acetaminophen 325 - 650 mg 10/17/18 14:16 10/23/18 20:03 Tylenol PO 650 mg Q4H PRN PRN Administration Al Hydrox/Mg Hydrox/Simethicone 30 ml 10/17/18 14:16 Mylanta Liquid PO Q2H PRN PRN Albuterol Sulfate 2.5 mg 10/17/18 14:16 Proventil Updraft UPD Q2H PRN PRN Apixaban 2.5 mg 10/17/18 20:00 10/24/18 07:40 Eliquis PO 2.5 mg BID MICHELLE Administration Clonidine 0.1 mg 10/20/18 20:00 10/24/18 07:39 Catapres PO Not Given BID MICHELLE Dimethicone/Zinc Oxide 0 gm 10/17/18 14:16 Ignacio Protect Cream TP PRN PRN Docusate Sodium 100 mg 10/17/18 20:00 10/24/18 07:40 Colace PO 100 mg BID MICHELLE Administration Hydralazine HCl 10 mg 10/21/18 20:00 10/24/18 07:39 Apresoline PO 10 mg BID MICHELLE Administration IV Miscellaneous Supplies 1 each 10/17/18 11:45 IV DIRECTED MICHELLE Magnesium Hydroxide 30 ml 10/17/18 14:16 10/22/18 12:11 Milk Of Magnesia PO 30 ml DAILY PRN PRN Administration Metoprolol Tartrate 25 mg 10/22/18 21:00 10/24/18 09:38 Lopressor PO 25 mg Q12H MICHELLE Administration Ondansetron HCl 4 mg 10/19/18 16:43 10/22/18 17:50 Zofran Injection IVP 4 mg Q6H PRN PRN Administration Pantoprazole Sodium 40 mg 10/22/18 07:30 10/24/18 07:40 Protonix PO 40 mg DAILY@0730 MICHELLE Administration Pt's Own Fluticasone 1 each 10/18/18 08:30 10/24/18 07:44 Furoate-Vilanterol IH 1 each [Breo Ellipta] 100- DAILY MICHELLE Administration 25 Mcg/Dose Inhaler Patient's Own 0 each 10/21/18 12:16 10/24/18 09:37 Theophylline Er PO 1 each 300mg Tabs QAM MICHELLE Administration Patient's Own 0 each 10/21/18 12:16 10/23/18 20:05 Theophylline Er PO 1 each 300mg Tabs QPM MICHELLE Administration Phenylephrine/Shark Liver Oil 1 supp 10/21/18 20:05 Preparation H Suppository VA BID PRN PRN Polyethylene Glycol 17 gm 10/22/18 12:51 Miralax PO DAILY PRN PRN Prochlorperazine Edisylate 10 mg 10/19/18 18:00 10/22/18 13:01 Compazine Injection IM 10 mg Q4H PRN PRN Administration Sennosides 1 tab 10/22/18 12:51 10/23/18 20:04 Senokot PO 1 tab BID PRN PRN Administration Sodium Chloride 0 ml 10/17/18 11:36 10/24/18 09:38 Saline Flush 10 Ml Syringe IVP 20 ml PRN PRN Administration Allergies adhesive Allergy (Unverified 09/01/18 08:58) gluten Allergy (Unverified 09/01/18 08:58) pork derived (porcine) Allergy (Unverified 09/01/18 08:58) dapsone Adverse Reaction (Verified 10/20/18 11:57) dizziness, headache, nausea coumadin Allergy (Uncoded 09/01/18 08:58) dairy Allergy (Uncoded 09/01/18 08:58) eggs Allergy (Uncoded 09/01/18 08:58) flu vaccine Allergy (Uncoded 09/01/18 08:58) tape Allergy (Uncoded 09/01/18 08:58) Exam Narrative Exam Narrative: Physical Exam: Gen: Patient of apparent stated age, NAD Head and face: no facial or cranial abnormalities Neck: Supple, no meningismus, no occipital tenderness CV: + S1, S2, RRR, no murmur Resp: CTA B/L Abd: soft, nontender, nondistended Ext: Mild bilateral LE edema. No clubbing or cyanosis. No bony deformity. Neuro Exam: Language: fluency, naming, repetition, and comprehension intact; Mental Status: AAO to self, current events skewed; Speech: no dysarthria Cranial nerves: Funduscopy: not performed CN II: visual butler intact CN III, IV, : extraocular movements intact, no nystagmus, pupils symmetric and reactive to light CN V: face sensation intact to LT and PP CN VII: no facial asymmetry noted CN VIII: hearing intact bilaterally CN IX, X: palate rises symmetrically CN XI: trapezius/SCM 5/5 bilaterally CN XII: protrudes tongue symmetrically Sensory: intact to LT, PP, and joint position in all extremities; reduced vibration in the toes bilaterally Motor: bulk and tone intact. Fine motor movements intact bilaterally. No pronator drift. Strength 5/5 throughout including the deltoids, biceps, triceps, wrist extensors, hip flexors, knee flexors, knee extensors, ankle flexors, and ankle extensors. Reflexes: 2+ at the biceps, triceps, brachioradialis, and patella; absent at the achilles tendons bilaterally; toes down going bilaterally; Coordination: FTN and HTS intact bilaterally Gait: deferred Results Last Vital Signs Temp 36.7 C 10/24/18 11:24 Pulse 86 10/24/18 11:24 Resp 18 10/24/18 11:24 BP 123/74 10/24/18 11:24 Pulse Ox 94 L 10/24/18 11:24 Labs : 10/24/18 06:32 10/24/18 06:32 Laboratory Results - last 24 hr 10/24/18 10/24/18 06:32 06:32 WBC 8.33 RBC 4.00 Hgb 11.9 L Hct 37.0 MCV 92.5 MCH 29.8 MCHC 32.2 RDW 16.6 H Plt Count 232 MPV 9.3 Immature Gran % 0.4 Neutrophils % 68.0 Lymphocytes % 18.5 Monocytes % 10.3 Eosinophils % 2.2 Basophils % 0.6 Absolute Neutrophils 5.67 Absolute Lymphocytes 1.54 Absolute Monocytes 0.86 H Absolute Eosinophils 0.18 Absolute Basophils 0.05 Differential Comment Agrees w/ instrument RBC Morphology Normal Sodium 132 L Potassium 3.9 Chloride 97 L Carbon Dioxide 26.3 Anion Gap 8.7 BUN 26 H Creatinine 1.90 H Estimated GFR/1.73 m2 25.31 Glucose 95 Calcium 10.5 H Magnesium 2.2 Total Bilirubin 0.4 Conjugated Bilirubin 0.12 AST 41 H ALT 17 Alkaline Phosphatase 81 Total Protein 6.7 Albumin 2.9 L Lipase 121
--- NOTE | 2018-10-24 17:28 | PGE_ITS ---
Date of Service Date of service: 10/24/18 Time of Service: 17:27 Assessment and Plan (1) Dizziness: Current visit: Yes Status: Acute Unsure of exact etiology - symptoms appear to be present but improved. Although attributed to potential side-effect of Dapsone (Currently on hold), patient also reports a positional aspect to her symptoms (described with head movements). Possibility for BPPV, but [place]-Hallpike Maneuver did not duplicate symptoms. CT of the head checked and negative - MRI cannot be obtained locally due to the presence of her PPM. Consider further neurological testing, completion of Ryan Maneuver by PT, and potential for SNF placement for ongoing Vestibular exercises - unsure of how safe patient will be for discharge given falls. Symptoms may also be post-con cussive. (2) Nausea: Current visit: Yes Status: Acute Nausea with vomiting and abdominal discomfort - Abdominal Xray with evidence of constipation. Will continue bowel regimen and reevaluate patient's symptoms. (3) Hypertension: Current visit: No Status: Chronic Blood pressure reasonable, despite YOBANY-I remaining on hold in setting of ZAFAR. Plan on initiating YOBANY-I in the future given history of CHF. Discontinue recently initiated CCB given hypotension and concurrent dizziness, although doubt current correlation. Decreased dosing of Hydralazine to home dosing of BID, and continue Clonidine to avoid rebound, but with strict hold parameters. (4) ZAFAR (acute kidney injury): Current visit: No Status: Acute In setting of dehydration from increased in lasix dose, as well as concurrent administration of YOBANY-I and ARB. Continue to monitor renal function, avoid nephrotoxins, and renally dose medications when appropriate. Current creatinine at or around patient's baseline. (5) CKD (chronic kidney disease): Current visit: No Status: Chronic (6) Hypercalcemia: Current visit: No Status: Acute Initially significantly elevated in setting of dehydration, now normal to minimally elevated only. Mild hypercalcemia is chronic, with a normal PTH level recently checked, and with patient on chronic supplementation with Calcium, currently on hold. Plans for discontinution of supplemental Ca at time of discharge. (7) PAF (paroxysmal atrial fibrillation): Current visit: No Status: Chronic Continue BB. On anticoagulation with Apixaban. (8) Malfunction of cardiac pacemaker: Current visit: Yes Status: Acute Apparent evidence of atrial undersensing [place] [facility] [place] Will need outpatient follow-up for pacer interrogation and adjustment. (9) CHF (congestive heart failure): Current visit: No Status: Chronic Evidence of both systolic and diastolic CHF (LV 45-50%) by last echo in 2016, with an EF of 50-55% by ECHO 09/2018. Currently with Furosemide back on hold given increase in creatinine, YOBANY-I on hold as above. Continue beta- eden. (10) Asthma: Current visit: No Status: Chronic Appears quiescent. Continue home regimen of Theophylline, inahler therapy. (11) Abnormal CT scan of lung: Current visit: Yes Status: Acute Previously significant abnormal imaging of the lungs, with CT at the time (08/2018) showing evidence of diffuse b/l R>L intrapulmonary radiodensities. Mrs. Win did not respond to antibiotics, but was noted to have improvement with the addition of prednisone. At the time of her discharge from the hospital the differential included Amiodarone Toxicity, atypical infection, or autoimmune/inflammatory process. Important to note that she did not respond to diuresis while here at the hospital, but was deemed likely secondary to fluid overload by pulmonary evaluation as an outpatient. Current CXR with apparent improvement, and patient feels well and at her baseline. Monitor. (12) DVT prophylaxis: Current visit: No Status: Acute On Apixaban. (13) Advance directive on file: Current visit: No Status: Acute DNR/DNI Subjective Interval history since last seen: 83-year-old woman with a prior history of HTN and PAF, admitted from [facility] Emergency Department on 10/17 with a diagnosis of Dizziness and ZAFAR. Mrs. Win has a past medical history significant for CHF with an LVEF of 45- 50% previously now 50-55%, as well as mention of diastolic dysfunction by prior echo. She has a history of paroxysmal AFib currently in sinus rhythm, previously maintained on antiarrhythmic therapy with amiodarone, and on chronic anticoagulation. Her other history includes tachybrady syndrome s/p dual- chamber PPM placement in 2016, CKD, asthma, HTN, and PHTN. Review of her labs indicate a mild hypercalcemia in the past, unknown of the origin or prior work- up of this, as well as presence of supplemental Calcium and Vitamin D. She was admitted here approximately one month ago with hypoxia and abnormal imaging of her lungs, suspected secondary to Amiodarone toxicity. The patient presented to the ED with reported 1 week history of dizziness, especially with getting up and with ambulation. She suffered a fall at home but did not lose consciousness. Her work-up in the ED showed no evidence of infection, but did show ZAFAR superimposed on CKD, as well as hypercalcemia. Review of her history also revealed recent increase in lasix dose, and addition of a low dose ARB on top of patient's YOBANY- I. Following admission the patient's lasix, ARB, and YOBANY-I were held, and her kidney function has improved. She was also on dapsone for a reported diagnosis of Bullous Pemphigoid, discontinued as thought to be contributing to patient's dizziness. However, patient continues to report improved but stil present dizziness, described as worse with head movement and standing - Ketch[place]-Hallpike Maneuver checked by PT previously and negative. She also reported nausea which is improved, without any further vomiting or dry heaves - Abdominal Xray checked and with apparent constipation. Patient has responded to current bowel regimen. Her blood pressure remains reasonable. No other events reported. Remains afebrile. Exam Narrative Exam Narrative: General: Patient appears comfortable, OOB in chair, AAOX3, NAD Neck: Supple CV: Regular, nontachycardic, S1S2, No rubs, murmurs, or gallops. Pulmonary: Clear to auscultation bilaterally, no crackles, wheezing, or rhonchi Abdomen: + Bowel Sounds, soft, nontender, nondistended Vascular: No lower extremity edema Psych: Normal mood and affect. Objective Objective Clinical Data: Abnormal lab results 10/24/18 10/24/18 Range/Units 06:32 06:32 Hgb 11.9 L (12.0-15.5) g/dL RDW 16.6 H (11.7-14.6) % Absolute Monocytes 0.86 H (0.11-0.7) k/cumm Sodium 132 L (136-145) mmol/L Chloride 97 L (98-107) mmol/L BUN 26 H (7-18) mg/dL Creatinine 1.90 H (0.55-1.02) mg/dL Calcium 10.5 H (8.5-10.1) mg/dL AST 41 H (15-37) U/L Albumin 2.9 L (3.4-5.0) g/dL Vital Signs Temperature 36.8 C 10/24/18 16:02 Temperature Source Tympanic 10/24/18 16:02 Pulse 69 10/24/18 16:02 Pulse Rhythm Regular 10/24/18 09:09 Pulse 69 10/17/18 17:31 Respiratory Rate 16 10/24/18 16:02 Respiratory Effort 10/24/18 09:09 Respiratory Depth Normal 10/24/18 09:09 Respiratory Pattern Normal 10/23/18 20:28 Blood Pressure 130/58 L 10/24/18 16:02 Blood Pressure Mean 68 10/17/18 17:30 Blood Pressure Position Sitting 10/17/18 11:35 Pulse Oximetry 92 L 10/24/18 16:02 Oxygen Delivery Method Room Air 10/24/18 16:02 Oxygen Flow Rate 0 10/24/18 16:02 Pain Level 0 10/24/18 07:18 Comment 10/24/18 09:40 Intake & Output 10/23/18 10/24/18 10/24/18 23:59 11:59 23:59 Intake Total 800 / 1650 590 / 850 260 / 850 Output Total 400 / 700 Balance 400 / 950 590 / 850 260 / 850 Weight 49.7 kg Intake: IV Oral 800 / 1650 590 / 830 240 / 830 Output: Urine 400 / 700 Other: Urine Color Yellow Yellow Urine Appearance Clear Urine Odor Strong Comment pt reports voiding around 5pm. LARGE VOID X 1. PT MISSED COLLECTION DEVICE AND VOID WENT INTO TOILET patient reportd voding x 1 today no measurement noted , not seen by RN Stool Size Moderate Small Stool Characteristics Soft Hard Liquid Brown Voiding Methods Toilet Toilet Laboratory Results WBC 8.33 k/cumm (4.4-10.8) 10/24/18 06:32 RBC 4.00 m/cumm (4.00-5.20) 10/24/18 06:32 Hgb 11.9 g/dL (12.0-15.5) L 10/24/18 06:32 Hct 37.0 % (36.0-46.0) 10/24/18 06:32 MCV 92.5 fL (80-95) 10/24/18 06:32 MCH 29.8 pg (27.0-33.0) 10/24/18 06:32 MCHC 32.2 g/dL (32.0-36.0) 10/24/18 06:32 RDW 16.6 % (11.7-14.6) H 10/24/18 06:32 Plt Count 232 x1000/uL (130-400) 10/24/18 06:32 MPV 9.3 fL (8.0-11.0) 10/24/18 06:32 Immature Gran % 0.4 10/24/18 06:32 Neutrophils % 68.0 10/24/18 06:32 Lymphocytes % 18.5 10/24/18 06:32 Monocytes % 10.3 10/24/18 06:32 Eosinophils % 2.2 10/24/18 06:32 Basophils % 0.6 10/24/18 06:32 Absolute Neutrophils 5.67 k/cumm (1.2-6.7) 10/24/18 06:32 Absolute Lymphocytes 1.54 k/cumm (1.2-3.4) 10/24/18 06:32 Absolute Monocytes 0.86 k/cumm (0.11-0.7) H 10/24/18 06:32 Absolute Eosinophils 0.18 k/cumm (0.0-0.7) 10/24/18 06:32 Absolute Basophils 0.05 k/cumm (0.0-0.2) 10/24/18 06:32 Differential Comment Agrees w/ instrument 10/24/18 06:32 RBC Morphology Normal 10/24/18 06:32 Sodium 132 mmol/L (136-145) L 10/24/18 06:32 Potassium 3.9 mmol/L (3.5-5.1) 10/24/18 06:32 Chloride 97 mmol/L (98-107) L 10/24/18 06:32 Carbon Dioxide 26.3 mmol/L (21.0-32.0) 10/24/18 06:32 Anion Gap 8.7 mmol/L (3-11) 10/24/18 06:32 BUN 26 mg/dL (7-18) H 10/24/18 06:32 Creatinine 1.90 mg/dL (0.55-1.02) H 10/24/18 06:32 Estimated GFR/1.73 m2 25.31 (mL/min/1.73m2) 10/24/18 06:32 Glucose 95 mg/dL (70-100) 10/24/18 06:32 Calcium 10.5 mg/dL (8.5-10.1) H 10/24/18 06:32 Magnesium 2.2 mg/dL (1.8-2.4) 10/24/18 06:32 Total Bilirubin 0.4 mg/dL (0.2-1.0) 10/24/18 06:32 Conjugated Bilirubin 0.12 mg/dL (0.00-0.20) 10/24/18 06:32 AST 41 U/L (15-37) H 10/24/18 06:32 ALT 17 U/L (12-78) 10/24/18 06:32 Alkaline Phosphatase 81 U/L (46-116) 10/24/18 06:32 Troponin I 0.04 ng/mL (0.00-0.06) 10/18/18 07:10 NT-Pro-B Natriuret Pep 1640 pg/mL (-299) H 10/17/18 12:30 Total Protein 6.7 g/dL (6.4-8.2) 10/24/18 06:32 Albumin 2.9 g/dL (3.4-5.0) L 10/24/18 06:32 Lipase 121 U/L (73-393) 10/24/18 06:32 Urine Color Yellow (Yellow) 10/17/18 13:56 Urine Clarity Clear 10/17/18 13:56 Urine pH 7.0 (5-8) 10/17/18 13:56 Ur Specific [place] 1.015 (1.005-1.025) 10/17/18 13:56 Urine Protein Negative mg/dL (Negative) 10/17/18 13:56 Urine Ketones Negative mg/dL (Negative) 10/17/18 13:56 Urine Blood Negative (Negative) 10/17/18 13:56 Urine Nitrite Negative (Negative) 10/17/18 13:56 Urine Bilirubin Negative (Negative) 10/17/18 13:56 Urine Urobilinogen 0.2 EU/dL (Up TO 0.2) 10/17/18 13:56 Ur Leukocyte Esterase Small (Negative) H 10/17/18 13:56 Urine RBC Not Applicable 10/17/18 13:56 Urine WBC 20-50 HPF (0-5) 10/17/18 13:56 Ur Epithelial Cells Many HPF (Negative) 10/17/18 13:56 Urine Crystals Negative HPF (Negative) 10/17/18 13:56 Urine Bacteria Few HPF (Negative) 10/17/18 13:56 Urine Mucus Negative (Negative) 10/17/18 13:56 Ur Culture Indicated? No/sq. contamination 10/17/18 13:56 Urine Glucose Negative mg/dL (Negative) 10/17/18 13:56 Theophylline 10.7 ug/ml (10.0-20.0) 10/18/18 07:10
[2018-10-24] MEDS: cloNIDine 0.1 MG TAB PO (19:19)
[2018-10-24] MEDS: Senna TAB 1 TAB PO (19:19)
[2018-10-25] MEDS: Acetaminophen 325 MG TAB PO (02:59)
[2018-10-25 03:20] VITALS: BP 123/65; PULSE 75; RESP 18; TEMP 37; O2SAT 94
[2018-10-25 03:45] VITALS: BP 136/89; PULSE 65; RESP 16; TEMP 37.4; O2SAT 96
[2018-10-25 07:11] LABS: Abs Immature Grans 0.02 k/cumm (0.0-0.09); Absolute Basophil Count 0.05 k/cumm (0.0-0.2); Absolute Eosinophil Count 0.21 k/cumm (0.0-0.7); Absolute Lymphocyte Count 1.54 k/cumm (1.2-3.4); Absolute Monocyte Count 0.75 k/cumm (0.11-0.7); Basophils % 0.7; Eosinophils % 2.9; HCT 34.3 % (36.0-46.0); HGB 10.5 g/dL (12.0-15.5); Immature Grans % 0.3; Lymphocytes % 21.2; Mean Corp. HGB Concentration 30.6 g/dL (32.0-36.0); Mean Corpuscular Hemoglobin 28.8 pg (27.0-33.0); Mean Platelet Volume 9.6 fL (8.0-11.0); Monocytes % 10.3; Neutrophils % 64.6; Platelet Count 231 x1000/uL (130-400); RBC 3.65 m/cumm (4.00-5.20); RBC Distribution Width 16.7 % (11.7-14.6); White Blood Cell Count 7.27 k/cumm (4.4-10.8)
[2018-10-25 07:14] LABS: Anion Gap 7.7 mmol/L (3-11); BUN 22 mg/dL (7-18); CO2 25.3 mmol/L (21.0-32.0); CREATININE 1.55 mg/dL (0.55-1.02); Calcium 10.5 mg/dL (8.5-10.1); Chloride 100 mmol/L (98-107); Estimated GFR 32.01 (mL/min/1.73m2); Glucose 96 mg/dL (70-100); Magnesium 2.1 mg/dL (1.8-2.4); Potassium 4.2 mmol/L (3.5-5.1); Sodium 133 mmol/L (136-145)
[2018-10-25 07:19] VITALS: BP 147/73; PULSE 72; RESP 18; TEMP 36.4; O2SAT 96
[2018-10-25 07:25] VITALS: O2SAT 97
[2018-10-25] MEDS: hydrALAZINE 10 MG TAB PO (08:16)
[2018-10-25] MEDS: Pantoprazole 40 MG TABCR PO (08:16)
[2018-10-25] MEDS: cloNIDine 0.1 MG TAB PO (08:16)
[2018-10-25] MEDS: Metoprolol 25 MG TAB PO (08:16)
[2018-10-25] MEDS: Normal Saline Flush 10 ML SYR IVP (08:17)
[2018-10-25] MEDS: Docusate Sodium 100 MG CAP PO (08:17)
[2018-10-25] MEDS: Apixaban 2.5 MG TAB PO (08:17)
[2018-10-25 11:05] VITALS: BP 106/67; PULSE 63; RESP 18; TEMP 36.8; O2SAT 97
--- NOTE | 2018-10-25 12:00 | W.PM.DS.N ---
Date of service: 10/25/18 Time of Service: 12:00 DS: Diagnosis Discharge Diagnosis (1) Dizziness: Status: Acute (2) Nausea: Status: Acute (3) Hypertension: Status: Chronic (4) ZAFAR (acute kidney injury): Status: Acute (5) CKD (chronic kidney disease): Status: Chronic (6) Hypercalcemia: Status: Acute (7) PAF (paroxysmal atrial fibrillation): Status: Chronic (8) Malfunction of cardiac pacemaker: Status: Acute (9) CHF (congestive heart failure): Status: Chronic (10) Asthma: Status: Chronic (11) Abnormal CT scan of lung: Status: Acute (12) Advance directive on file: Status: Acute Discharge Plan Disposition Patient Disposition: HOME W/HOME HEALTH SERVICE Condition: Stable Discharge Details Reason For Visit: HYPERCALCEMIA,ZAFAR ON CKD, DEHYDRATION, FALL, AMB. Admit Date/Time: 10/17/18 14:17 Admit Provider: Constanza Schultz Attending Provider: Constanza Schultz Primary Care Provider: Fran Self Hospital Course Hospital Course: CC: Dizziness, Fall HPI: 83-year-old woman with a prior history of HTN and PAF, admitted from [facility] on 10/17 with a diagnosis of Dizziness and ZAFAR. Mrs. Win has a past medical history significant for CHF with an LVEF of 45-50% previously, now 50-55%, as well as mention of diastolic dysfunction by prior ECHO. She has a history of paroxysmal AFib, previously maintained on antiarrhythmic therapy with amiodarone, and on chronic anticoagulation. Her other history includes tachybrady syndrome s/p dual-chamber PPM placement in 2016, CKD, asthma, HTN, and PHTN. Review of her labs indicate a mild hypercalcemia in the past, unknown of the origin or prior work-up of this, as well as presence of supplemental Calcium and Vitamin D. She was admitted here approximately one month ago with hypoxia and abnormal imaging of her lungs, suspected secondary to Amiodarone toxicity. The patient presented to the ED at the time of her admission with a reported 1 week history of dizziness, especially with getting up and with ambulation, as well as with movement of her head. She suffered a fall at home but did not lose consciousness. Her work-up in the ED showed no evidence of infection, but did show ZAFAR superimposed on CKD, as well as hypercalcemia. Review of her history also revealed recent increase in her lasix dose, and addition of a low dose ARB on top of patient's YOBANY-I. Following admission the patient's lasix, ARB, and YOBANY-I were held, and her kidney function has improved. She was also on dapsone for a reported diagnosis of Bullous Pemphigoid, discontinued as thought to be contributing to patient's dizziness. However, patient continued to report improved but stil present dizziness, described as worse with head movement and standing - Loving-Hallpike Maneuver checked by PT previously and negative. She was finally evaluated by Neurology prior to her dishcarge. She also reported nausea which is improved, without any further vomiting or dry heaves - Abdominal Xray checked and with apparent constipation. Patient has responded to current bowel regimen. Her blood pressure remains reasonable. No other events reported. Remains afebrile. Hospital Course: (1) Dizziness: Unsure of exact etiology - symptoms appear to be present but improved. Although attributed to potential side-effect of Dapsone (Currently on hold), patient also reports a positional aspect to her symptoms (described with head movements). Possibility for BPPV, but Ashli-Hallpike Maneuver did not duplicate symptoms. CT of the head checked and negative - MRI cannot be obtained locally due to the presence of her PPM. Neurology evaluation with symptoms potential on the basis of peripheral neuropathy vs. BPPV, with recommendations for ongoing PT for gait balance and chronic Vestibular therapy until resolution of Vertigo. Also with possibility for post-concussion syndrome. Recommended SNF placement for ongoing Vestibular exercises and work with PT, especially given concern for patient's safety with ambulation - adamantly refused by patient. Will discharge home with Home Health for PT/OT and walker instead, as per patient's request. Will also check Vitamin B12 & MMA levels, HgA1C, and TSH for further work-up of her neuropathy. (2) Nausea: Nausea with vomiting and abdominal discomfort - Abdominal Xray with evidence of constipation. Has improved daily with treatment of constipation. Will continue bowel regimen at time of discharge, with follow-up as an outpatient. No further episodes of vomiting over the last 2-3 days. (3) Hypertension: Blood pressure reasonable, despite YOBANY-I remaining on hold in setting of ZAFAR. Plan on initiating YOBANY-I in the future given history of CHF. Discontinued recently initiated CCB given hypotension and concurrent dizziness, although doubt current correlation. Continue Hydralazine at home dosing of BID, and continue Clonidine to avoid rebound. Follow-up as outpatient - current systolic values mostly in the 100 - 130's. Consider slow weaning of Clonidine in the future if able. (4) ZAFAR (acute kidney injury): In setting of dehydration from increased in lasix dose, as well as concurrent administration of YOBANY-I and ARB. Will continue to hold YOBANY-I and Lasix - current kidney function appears at or around patient's baseline. (5) CKD (chronic kidney disease): (6) Hypercalcemia: Initially significantly elevated in setting of dehydration, now normal to minimally elevated only. Mild hypercalcemia is chronic, with a normal PTH level recently checked, and with patient on chronic supplementation with Calcium, currently on hold. Plans for discontinution of supplemental Ca at time of discharge. (7) PAF (paroxysmal atrial fibrillation): Continue BB. On anticoagulation with Apixaban. (8) Malfunction of cardiac pacemaker: Apparent evidence of atrial undersensing by review of patient's telemetry strip by [facility]. Will need outpatient follow-up for pacer interrogation and adjustment - scheduled. (9) CHF (congestive heart failure): Evidence of both systolic and diastolic CHF (LV 45-50%) by last echo in 2016, but now with an EF of 50-55% by ECHO 09/2018. Currently with Furosemide back on hold given increase in creatinine with reinitiation, and YOBANY-I on hold as above. Continued on beta-eden. Patient's weight has been stable at 50 Kg over the last 3 days without diuretic therapy. Consider reinitiation of YOBANY-I soon, with low dose lasix if warranted. (10) Asthma: Appears quiescent. Continue home regimen of Theophylline, inahler therapy. (11) Abnormal CT scan of lung: Previously significant abnormal imaging of the lungs, with CT at the time (08/2018) showing evidence of diffuse b/l R>L intrapulmonary radiodensities. Mrs. Win did not respond to antibiotics during that hospitalization, but was noted to have improvement with the addition of prednisone. At the time of her discharge from the hospital the differential included Amiodarone Toxicity, atypical infection, or autoimmune/inflammatory process. Important to note that she did not respond to diuresis while here at the hospital, but was deemed likely secondary to fluid overload by pulmonary evaluation as an outpatient. Current CXR with apparent improvement, and patient feels well and at her baseline. Significantly dehydrated and with ZAFAR with increased dose Lasix and addition of ARB (With YOBANY-I on board). Continue to Monitor. (12) Advance directive on file: DNR/DNI Dispostion: Recommendation for SNF for further PT and gait imbalance work along with Vestibular exercises, adamantly refused by patient. Discharge to home with home services for PT/OT?VNA. Patient will be supplied a walker as well. Home Meds and New Rx's Prescriptions: New sennosides [Senokot] 8.6 mg Tablet 2 tab PO HS Qty: 60 RF: 0 polyethylene glycol 3350 17 gram Powder In Packet 17 g PO DAILY Qty: 1 RF: 0 pantoprazole 40 mg Tablet,Delayed Release (Dr/Ec) 40 mg PO DAILY@0730 Qty: 30 RF: 0 docusate sodium [Colace] 100 mg Capsule 100 mg PO TID Qty: 90 RF: 0 Continued silver sulfadiazine [Thermazene] 50 GM cream 50 gm Topical DAILY PRNRF: 0 clonidine HCl 0.1 MG tablet 0.1 mg PO BID RF: 0 metoprolol tartrate 25 MG tablet 25 mg PO BID RF: 0 Eliquis 2.5 MG tablet 2.5 mg PO BID RF: 0 theophylline 200 mg Tablet Extended Release 12 Hr 200 mg PO DAILY RF: 0 dapsone 25 mg Tablet 25 mg PO BID RF: 0 hydralazine 25 mg tablet 10 mg PO BID RF: 0 cholecalciferol (vitamin D3) [Vitamin D3] 2,000 unit Capsule 2,000 unit PO DAILY RF: 0 Breo Ellipta 100-25 mcg/dose Blister With Device 1 inh Inhalation DAILY RF: 0 Discontinued losartan 25 mg tablet 25 mg PO DAILY RF: 0 potassium chloride [Klor-Con 10] 10 MEQ tablet extended release 10 meq PO DAILY RF: 0 furosemide 40 mg Tablet 40 mg PO DAILY RF: 0 lisinopril 40 mg Tablet 40 mg PO DAILY RF: 0 calcium carbonate [Calcium 600] 600 mg calcium (1,500 mg) Tablet 600 mg PO BID RF: 0 Discharge Instructions Stand Alone Forms: Nursing Discharge Form Referrals: Lanny Olson NP [NURSE PRACTITIONER] - 11/14/18 9:30 am Fran Self [Primary Care Provider] - 10/26/18 9:45 am Kathy Toro MD [ [facility] STAFF PHYSICIAN] - 12/14/18 8:15 am Activity:: As per PT Instructions. Use Walker. Equipment/Supplies:: Walker Diet:: Low Sodium Discharge Orders Discharge Orders: Discharge Order (Routine); Ordered 10/25/18 Ordered By: Erasmo Woods Other Ambulatory Orders: Methylmalonic Acid (Routine) Timeframe: 3 Days Location: Laboratory Nonpatient Ordered By: Erasmo Woods Electrophoresis, Serum (Routine) Timeframe: 3 Days Location: Laboratory Nonpatient Ordered By: Erasmo Woods Vitamin B12 (Routine) Timeframe: 3 Days Location: Determined by Patient Ordered By: Erasmo Woods Hemoglobin A1C (Routine) Location: Determined by Patient Ordered By: Erasmo Woods DS: Data Vitals/I&O Vitals and I&O: Vital Signs Temperature 36.4 C L 10/25/18 07:19 Temperature Source Tympanic 10/25/18 07:19 Pulse 72 10/25/18 07:19 Pulse Rhythm Regular 10/25/18 09:49 Pulse 69 10/17/18 17:31 Respiratory Rate 18 10/25/18 07:19 Respiratory Effort 10/25/18 09:49 Respiratory Depth Normal 10/25/18 09:49 Respiratory Pattern Normal 10/25/18 09:49 Blood Pressure 147/73 H 10/25/18 07:19 Blood Pressure Mean 68 10/17/18 17:30 Blood Pressure Position Sitting 10/17/18 11:35 Pulse Oximetry 96 10/25/18 07:19 Oxygen Delivery Method Room Air 10/25/18 07:19 Oxygen Flow Rate 0 10/25/18 07:19 Pain Level 6 10/25/18 03:20 Comment 10/25/18 03:20 Intake & Output 10/24/18 10/25/18 10/25/18 23:59 11:59 23:59 Intake Total 500 / 1090 1090 / 1090 Output Total 1100 / 1100 1300 / 1300 Balance -600 / -10 -210 / -210 Weight 50.6 kg Intake: IV / Oral 480 / 1070 1090 / 1090 Output: Urine 1100 / 1100 1300 / 1300 Other: Urine Color Yellow Yellow Urine Appearance Clear Clear Urine Odor Strong Comment patient reportd voding x 1 today no measurement noted , not seen by RN Voiding Methods Toilet Toilet Completed studies during hospitalization [Text1]: Exam(s) 10/18/[address]:CT head & cervical spine wo SYMPTOMS/DIAGNOSIS: S/P FALL, ? ACUTE FRACTURE/INTRACRANIAL INJURY CRANIAL CT: There is no evidence of an intra/extra-axial hemorrhage. Regions of radiolucency in the frontoparietal white matter would be consistent with small vessel disease. There is nothing to suggest a territorial infarct. The ventricles are normal. There is no evidence of a skull fracture. The paranasal sinuses are normal. There is no evidence of a mastoid effusion. SUMMARY: No acute intracranial abnormality is seen. C-SPINE CT: The vertebral bodies appear intact. Multilevel disc space narrowing is noted. There is a 3 mm anterior subluxation of C4 on C5, which is associated with severe facet joint DJD. The neural canal is widely patent throughout. The posterior elements are intact. The odontoid is well maintained and is closely applied to the anterior arch of C1. The prevertebral soft tissues are normal. SUMMARY: Severe degenerative changes involving the cervical spine are evident. There is no evidence of a superimposed acute fracture or dislocation. Exam(s) 10/17/2018 a RAD:XR chest 2V PA & lateral SYMPTOMS/DIAGNOSIS: S/P FALL, ? ACUTE DISEASE/FRACTURE AP AND LATERAL CHEST: When compared with the previous examination of 09/07, there has been significant interval clearing of the right lung. The left lung is clear. There is no pleural effusion. The heart is unchanged in size. The pacing are in stable position. SUMMARY: Interval improvement is demonstrated with substantial interval clearing of the lungs. Exam(s) 10/22/2018 a RAD:XR abdomen flat & upright SYMPTOMS/DIAGNOSIS: VOMITING FLAT AND UPRIGHT ABDOMEN: Comparison chest x-ray is 10/17/18. There is again seen scarring or atelectasis in the lung bases which appear stable. No organomegaly or pneumoperitoneum is seen. There is a large amount of stool seen throughout the colon. No evidence of bowel obstruction or pneumoperitoneum. There is again seen a left convex scoliosis of the thoracolumbar spine. Surgical clips are seen in the pelvis. IMPRESSION: Large amount of retained stool in the colon which may reflect constipation. Labs on day of discharge: Labs from last 24 hours 10/25/18 10/25/18 06:15 06:15 WBC 7.27 RBC 3.65 L Hgb 10.5 L Hct 34.3 L MCV 94.0 MCH 28.8 MCHC 30.6 L RDW 16.7 H Plt Count 231 MPV 9.6 Immature Gran % 0.3 Neutrophils % 64.6 Lymphocytes % 21.2 Monocytes % 10.3 Eosinophils % 2.9 Basophils % 0.7 Absolute Neutrophils 4.70 Absolute Lymphocytes 1.54 Absolute Monocytes 0.75 H Absolute Eosinophils 0.21 Absolute Basophils 0.05 Sodium 133 L Potassium 4.2 Chloride 100 Carbon Dioxide 25.3 Anion Gap 7.7 BUN 22 H Creatinine 1.55 H Estimated GFR/1.73 m2 32.01 Glucose 96 Calcium 10.5 H Magnesium 2.1 PFSH Medical History Hypercalcemia (Chronic) CHF (congestive heart failure) (Chronic) Presence of permanent cardiac pacemaker (Chronic) PAF (paroxysmal atrial fibrillation) (Chronic) Hypertension (Chronic) Pulmonary hypertension (Chronic) Asthma (Chronic) CKD (chronic kidney disease) (Chronic) Chronic kidney disease (Acute) Asthma (Chronic) Atrial fibrillation (Chronic) CHF (congestive heart failure) (Chronic) COPD (chronic obstructive pulmonary disease) (Chronic) Depression (Chronic) HTN (hypertension) (Chronic) Surgical History History of thoracic aortic aneurysm repair (Chronic) AICD (automatic cardioverter/defibrillator) present (Acute) H/O thoracic aortic aneurysm repair (Acute) Pacemaker (Acute) Social History Smoking/Tobacco Use Status: Never Alcohol Intake: never Substance use type: does not use Do you feel safe at home: Yes Do you feel safe in your relationship?: Yes
--- NOTE | 2018-10-25 12:58 | PDOC.HHF2F ---
1. Encounter Date and Reason I certify that SHENA CUI was seen by Erasmo Woods on 10/25/18 and that I had a [id number] encounter with this patient that meets the physician face to face encounter requirements. 2. Clinical Findings Supporting Skilled Need and Homebound Status I certify that home health services are medically necessary, include either intermittent halfway and/or physical/speech therapy, and that this patient is homebound in that absences from the home require considerable and taxing effort and are infrequent or of short duration, or are attributable to the need to receive medical care. [X] (a) Attached documentation from encounter provides clinical findings supporting skilled need and homebound status (including what assistance patient requires to leave the home). The encounter with the patient was in whole, or in part, for the following medical condition, which is the primary reason for home health care: HYPERCALCEMIA,ZAFAR ON CKD, DEHYDRATION, FALL, AMB. Correction: Medication check, Blood Pressure monitoring. Please assess for volume status/overload. Blood Draw in 2-3 days. Physical Therapy/Occupational Therapy: Continue work for gait imbalance, Vestibular Exercises for possible Positional Vertigo. Need for new walker. Home safety. Speech Therapy: Homebound: 3. Certification and Authentication I certify that I composed the above information based on my clinical judgement relating to this patient's medical condition and, if applicable, clinical findings communicated to me by the NPP or inpatient physician who performed the Home Health Referral. All further orders will be obtained through (Community Based Physician - PCP)
--- NOTE | 2018-10-25 15:34 | PT.INTREAT ---
Date of service: 10/25/18 Time of Service: 15:34 PT Notes Inpatient Physical Therapy Treatment Note [facility] Date: 10/25/2018 PRECAUTIONS: Fall SUBJECTIVE: Following discussion with Antonia regarding SNF placement versus home discharge for continued rehab to include balance retraining, she is adamant that she is not agreeable to SNF placement. OBJECTIVE: PAIN: No c/o pain BED MOBILITY/TRANSFERS Sit-stand: S Stand-sit: S GAIT Assistive Device: FWW Weight bearing: WBAT L Assist: SBA Distance: 150' Deviation: No c/o dizziness THEREX: Patient completed functional [id number] exercise x5, without c/o dizziness. Patient also completed dynamic balance retraining exercises, including walking with cervical flexion/extension and rotation to L/R, without dizziness. ASSESSMENT: Patient tolerated session well without complaint. Patient would benefit from participating in a balance retraining program for improved safety with completion of daily functional tasks. PLAN: As per primary PT TREATMENT CODE/TIME: 15 minutes; 16055
--- NOTE | 2018-10-25 19:28 | PDOC.CMDIS ---
- If Service Date Differs Date of service: 10/25/18 Time of Service: 19:28 LACE Index Scoring Tool - Questions: Length of Stay (in days): 7 - 13 Acuity (Admit via E.D.?): Yes Comorbidities: Congestive Heart Failure E.D. Visits: 3 - Answers: Total Score: 13 Risk of Readmission: High Risk Care Management Discharge Reason for Hospitalization: Acute kidney injury Discharge Plan: Antonia is returning home today with her daughter with resumption of home health services and addition of OT. She declines SNF facility and feels that she can return home with services. She states she is feeling improved. She did have a neuro consult and should follow up as an outpatient which has been scheduled prior to her discharge. She also has cardiology follow up and pcp. Her daughter or son in law will pick her up this afternoon at time of discharge. Patient/Family Education Needs: Discharge education, limitations and follow up plan of care including ask me three and self management. Services Needed at Discharge: Home Health Care Services, Occupational Therapy, Physical Therapy
--- NOTE | 2018-10-26 10:46 | PT.INDS ---
Date of service: 10/26/18 PT Notes Inpatient Physical Therapy Discharge Summary Dates: 10/26/2018 Dates of Service: 10/19/2018 through 10/25/2018 This is a clinical summary of care provided on the duration of dates listed above. No charge was made in the completion of this documentation. Referring Doctor: Constanza Schultz MD PT Orders: PT CONSULT: Eval/treat Precautions: Fall. Standard. Patient Profile/Admitting Diagnosis: Orders received for this 84 female who presented to the ED on 10/17/2018 with chief complaints of left temporal headache sustained from a fall, nausea, dizziness, fatigue, and weakness for the past 5 days. Patient was diagnosed with acute kidney injury, hypercalcemia, dehydration, ambulatory dysfunction, and dizziness. Cranial CT scan revealed negative for fracture and intracranial hemorrhage: cervical spine CT was negative as well for fracture/dislocation. Patient received skilled physical therapy services from 09/02/2018 through 09/12/2018 for generalized weakness resulting from a pneumonia and was discontinued being independent with all bed mobility, transfers, and ambulation of 30 feet x 5 without the need for an assistive device. PMHX: Medical History Hypercalcemia (Chronic) CHF (congestive heart failure) (Chronic) Presence of permanent cardiac pacemaker (Chronic) PAF (paroxysmal atrial fibrillation) (Chronic) Hypertension (Chronic) Pulmonary hypertension (Chronic) Asthma (Chronic) CKD (chronic kidney disease) (Chronic) Chronic kidney disease (Acute) Asthma (Chronic) Atrial fibrillation (Chronic) CHF (congestive heart failure) (Chronic) COPD (chronic obstructive pulmonary disease) (Chronic) Depression (Chronic) HTN (hypertension) (Chronic) Surgical History History of thoracic aortic aneurysm repair (Chronic) AICD (automatic cardioverter/defibrillator) present (Acute) H/O thoracic aortic aneurysm repair (Acute) Pacemaker (Acute) Social History/Home Situation: Patient was discontinued from skilled PT services on 09/12/2018 being independent with all bed mobility, transfers and ambulation performance of up to 30 feet x 5 using no assistive device. Per case management notes, Antonia resides with her daughter Orly in [place], [place] she has a room on ground level and two steps into her home. Her , Adolfo resides at [facility] in [place], [place]. Antonia sees him almost daily and reports he suffers from advanced dementia and currently believes he is living on the farm he [place] up [place] at [age] years old. Antonia is normally independent, no DME and no services. Antonia does not drive and shares that Fran Self recommended she no longer drive though this bothers her much as she has to depend on her daughter to transport her to [place] daily. 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 Antonia reports that she has two other daughters and a son whom reside in [place] all of whom are supportive. Equipment Owned/DME: None Subjective: NT Objective: NT Mental Status: NT Pain: NT ROM: Right Upper Extremity: Shoulder Flexion WFL. Shoulder abduction WFL. Elbow flexion WFL. Wrist flexion WFL. Functional opening and closing of hand WFL. Left Upper Extremity: Shoulder Flexion WFL. Shoulder abduction WFL. Elbow flexion WFL. Wrist flexion WFL. Functional opening and closing of hand WFL. Right Lower Extremity: Hip flexion WFL. Hip abduction WFL. Knee flexion WFL. Ankle dorsiflexion WFL. Ankle plantarflexion WFL. Left Lower Extremity: Hip flexion WFL. Hip abduction WFL. Knee flexion WFL. Ankle dorsiflexion WFL. Ankle plantarflexion WFL. Strength: Right Upper Extremity: Shoulder flexors 4-/5. Shoulder abductors 4-/5. Elbow flexors 4-/5. Elbow extensors 4-/5. Air Quality Specialist strong. Left Upper Extremity: Shoulder flexors 4/5. Shoulder abductors 4/5. Elbow flexors 4/5. Elbow extensors 4/5. Air Quality Specialist strong. Right Lower Extremity: Hip flexors 3+/5. Hip abductors 3+/5. Knee flexors 3+/5. Knee extensors 3+/5. Ankle dorsiflexors 4-/5. Ankle plantarflexors 4-/5. Left Lower Extremity:Hip flexors 3+/5. Hip abductors 3+/5. Knee flexors 3+/5. Knee extensors 3+/5. Ankle dorsiflexors 4-/5. Ankle plantarflexors 4-/5. Bed Mobility/Transfers: Supine to sit S Sit to supine S Sit to stand S Stand to sit S Bed to chair S Chair to bed S Gait: PT documentation on 10/25/2018 showed patient was able to tolerate 150 feet of level surface ambulation with standby assist needed using FWW. Balance: Static Sitting: Good Dynamic Sitting: Fair Static Standing: Fair Dynamic Standing: Fair Assessment: Patient is an 84-year-old female who was diagnosed with acute kidney injury, hypercalcemia, dehydration, ambulatory dysfunction, and dizziness.Patient presents with clinical signs and symptoms consistent with current/admitting diagnoses that have resulted to mobility limitations, gait instability, generalized weakness, and impairment of motor control as demonstrated by the following impairment level findings: 1. Decreased strength to B LE major muscle groups 2. Impaired sitting/standing balance 3. Impaired activity tolerance 4. Report of dizziness limiting participation and mobility retraining Impairments are contributing to the following functional limitations: 1. Dependent bed mobility skills 2. Increased dependence with transfers 3. Inability to safely ambulate without assistive device and physical assistance 4. Increase completion time for mobility ADL performance 5. Increased fall risk 6. Inability to negotiate steps alone safely Patient will benefit from skilled therapy intervention in order to remedy their functional limitations and restore patient to a more appropriate and stable functional level. Goals X1 week 1. Supine-Sit independent NOT MET 2. Sit-Supine independent NOT MET 3. Sit-Stand independent NOT MET 4. Stand-Sit independent NOT MET 5. Bed-Chair independent NOT MET 6. Chair-Bed independent NOT MET 7. Independent gait on level surface with use of least restrictive device/without assistive device for at least 50 feet without report of pain nor dyspnea NOT MET 8. Independent stair negotiation while holding onto bilateral rails for at least 5 steps without report of pain nor dyspnea NOT MET 9. Independent with home exercise program NOT MET 10. Good static and dynamic standing balance/tolerance NOT MET DISCHARGE RECOMMENDATIONS: Patient will benefit from home health PT services in order to progress mobility level using least restrictive assistive ambulatory device/using no device, assess home safety, identify additional equipment needs, and establish a functional maintenance program that will increase ability of patient to remain at home. TREATMENT CODE/TIME: RI. Thank you very much for this referral. Suma Torres PT, DPT, CLT [facility]
== END 2018-10-25 14:38 | disposition home health service (06) | DRG 683 ==
LOC: ER 17:19 → MS 18:03
PROVIDERS: Admitting Provider Internal Medicine; Emergency Provider Physician Assistant; PCP Specialist/Technologist Athletic Trainer; Visit Provider Internal Medicine
DX: N17.9 Acute kidney failure, unspecified (principal); I13.0 Hypertensive heart and chronic kidney disease with heart failure and stage 1 through stage 4 chronic kidney disease, or unspecified chronic kidney disease; I50.42 Chronic combined systolic (congestive) and diastolic (congestive) heart failure; E87.0 Hyperosmolality and hypernatremia; N18.9 Chronic kidney disease, unspecified; E83.52 Hypercalcemia; E86.0 Dehydration; R42 Dizziness and giddiness; R11.2 Nausea with vomiting, unspecified; I16.0 Hypertensive urgency; H81.10 Benign paroxysmal vertigo, unspecified ear; T37.1X5A Adverse effect of antimycobacterial drugs, initial encounter; I48.0 Paroxysmal atrial fibrillation; J45.909 Unspecified asthma, uncomplicated; R91.8 Other nonspecific abnormal finding of lung field; R26.2 Difficulty in walking, not elsewhere classified; Z79.01 Long term (current) use of anticoagulants; J44.9 Chronic obstructive pulmonary disease, unspecified; F32.9 Major depressive disorder, single episode, unspecified; S09.90XA Unspecified injury of head, initial encounter; W18.09XA Striking against other object with subsequent fall, initial encounter; I27.29 Other secondary pulmonary hypertension; H50.89 Other specified strabismus; K59.00 Constipation, unspecified; G62.9 Polyneuropathy, unspecified
CPT/HCPCS: 36415; 80048; 80053; 80076; 83690; 93005; 94640; 96360; 96361; 97110; 97162; 97165; 97530; 99223; 99232; 99233; 99239; 99285; 70450; 71046; 72125; 74019; 80198; 81003; 81015; 83735; 83880; 84484; 85025; 93010; J0780; J2405

== ENCOUNTER → 2018-10-24 11:57 | Outpatient (BNVA) | payer MEDICARE, SELFPAY | PROVIDERS: PCP Specialist/Technologist Athletic Trainer; Visit Provider Psychiatry & Neurology Neurology | DX: R69 Illness, unspecified (principal) ==

== ENCOUNTER 2018-10-26 11:24 | Outpatient (CLI) | payer MEDICARE, SELFPAY ==
[2018-10-26 13:25] LABS: Abs Immature Grans 0.03 k/cumm (0.0-0.09); Absolute Basophil Count 0.07 k/cumm (0.0-0.2); Absolute Eosinophil Count 0.32 k/cumm (0.0-0.7); Absolute Lymphocyte Count 1.76 k/cumm (1.2-3.4); Absolute Monocyte Count 0.96 k/cumm (0.11-0.7); Basophils % 0.7; Eosinophils % 3.1; HCT 36.7 % (36.0-46.0); HGB 11.6 g/dL (12.0-15.5); Immature Grans % 0.3; Lymphocytes % 16.9; Mean Corp. HGB Concentration 31.6 g/dL (32.0-36.0); Mean Corpuscular Hemoglobin 30.1 pg (27.0-33.0); Mean Corpuscular Volume 95.3 fL (80-95); Mean Platelet Volume 9.4 fL (8.0-11.0); Monocytes % 9.2; Neutrophils % 69.8; Platelet Count 254 x1000/uL (130-400); RBC 3.85 m/cumm (4.00-5.20); RBC Distribution Width 16.8 % (11.7-14.6); White Blood Cell Count 10.44 k/cumm (4.4-10.8)
[2018-10-26 13:58] LABS: Hemoglobin A1C 5.8 % (4.5-6.2)
[2018-10-26 14:01] LABS: Anion Gap 7.6 mmol/L (3-11); BUN 24 mg/dL (7-18); CO2 27.4 mmol/L (21.0-32.0); CREATININE 1.66 mg/dL (0.55-1.02); Chloride 102 mmol/L (98-107); Estimated GFR 29.58 (mL/min/1.73m2); NT-proBNP 1757 pg/mL; Sodium 137 mmol/L (136-145)
[2018-10-26 14:19] LABS: Vitamin B12 1371 pg/mL (193-986)
[2018-10-27 12:46] LABS: Albumin 53.9 % (55.8-66.1); Total Protein 6.7 g/dl (6.3-8.2)
[2018-10-30 14:39] LABS: Methylmalonic Acid 0.31 nmol/mL (<=0.40)
== END 2018-10-26 11:44 ==
PROVIDERS: Internal Medicine Interventional Cardiology; PCP Specialist/Technologist Athletic Trainer; Visit Provider Internal Medicine
DX: I48.91 Unspecified atrial fibrillation (principal); I50.9 Heart failure, unspecified; G62.9 Polyneuropathy, unspecified; R79.89 Other specified abnormal findings of blood chemistry
CPT/HCPCS: 80051; 80186; 84520; 85027; 82565; 82607; 83036; 83880; 84165; 85025

== ENCOUNTER 2018-10-30 08:35 | Outpatient (CLI) | payer MEDICARE, SELFPAY | END 2018-10-30 08:55 | PROVIDERS: PCP Specialist/Technologist Athletic Trainer; Visit Provider Internal Medicine Interventional Cardiology | DX: I48.91 Unspecified atrial fibrillation (principal); I50.9 Heart failure, unspecified; I13.0 Hypertensive heart and chronic kidney disease with heart failure and stage 1 through stage 4 chronic kidney disease, or unspecified chronic kidney disease; N18.9 Chronic kidney disease, unspecified; R55 Syncope and collapse | CPT/HCPCS: 99214; 99215; 93005; 93010 ==

== ENCOUNTER → 2018-11-14 09:17 | Outpatient (BNVA) | payer MEDICARE, SELFPAY | PROVIDERS: PCP Specialist/Technologist Athletic Trainer; Visit Provider Nurse Practitioner Primary Care | DX: I50.9 Heart failure, unspecified (principal); I48.0 Paroxysmal atrial fibrillation; I12.9 Hypertensive chronic kidney disease with stage 1 through stage 4 chronic kidney disease, or unspecified chronic kidney disease; Z45.018 Encounter for adjustment and management of other part of cardiac pacemaker; J45.909 Unspecified asthma, uncomplicated; N18.3 Chronic kidney disease, stage 3 (moderate) | CPT/HCPCS: 93288; 99214 ==

== ENCOUNTER 2018-11-21 00:42 | Outpatient (CLI) | payer MEDICARE, SELFPAY ==
--- NOTE | 2018-11-21 07:30 | MERGE_ITS ---
*The * *[facility]* [address] [place] [address] Date of study: 11/21/2018 Transthoracic Echocardiography M-mode, complete 2D, complete spectral Doppler, and color Doppler *STUDY CONCLUSIONS* Summary: 1. Left ventricle: The cavity size was normal. Wall thickness was increased in a pattern of mild LVH. Systolic function was normal. The estimated ejection fraction was 60-65%. Wall motion was normal; there were no regional wall motion abnormalities. Findings consistent with diastolic dysfunction. 2. Aortic valve: There was trivial regurgitation. 3. Left atrium: The atrium was moderately dilated. 4. Right ventricle: The cavity size was normal. Wall thickness was normal. Pacer wire noted in right ventricle. Systolic function was normal. 5. Right atrium: The atrium was mildly dilated. 6. Tricuspid valve: There was mild-moderate regurgitation. 7. Pulmonary arteries: Pulmonary systolic pressure was increased, in the range of 35mm Hg to 40mm Hg. *PATIENT PRESENTATION* Height: 152.4cm ((60in) ) S/D Pressure: 129 / 72 Weight: 52.2kg ((114.8lb) ) BSA: 1.49m^2 Test start time: 07:40 AM. Test stop time: 08:40 AM. 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 This study was interpreted by [facility]. Pertinent images and digital data are archived for permanent storage and are available for subsequent review. Comparison was made to the study of 10/05/2018. Study status: Routine. Transthoracic echocardiography. M-mode, complete 2D, complete spectral Doppler, and color Doppler. A Transthoracic Echocardiogram was performed. Scanning was performed from the parasternal, apical, subcostal, and suprasternal notch acoustic windows. Images were obtained using an [id number] cardiac ultrasound machine. Image quality was adequate. Study completion: The patient tolerated the procedure well. There were no complications. History: PMH: OPAL R06.02. *CARDIAC ANATOMY* Left ventricle: The cavity size was normal. Wall thickness was increased in a pattern of mild LVH. Systolic function was normal. The estimated ejection fraction was 60-65%. Wall motion was normal; there were no regional wall motion abnormalities. Findings consistent with diastolic dysfunction. Aortic valve: Trileaflet; mildly thickened, mildly calcified leaflets. Mobility was not restricted. Doppler: Transvalvular velocity was within the normal range. There was no stenosis. There was trivial regurgitation. VTI ratio of LVOT to aortic valve: 0.62. Valve area (VTI): 1.8cm^2. Indexed valve area (VTI): 1.2cm^2/m^2. Peak velocity ratio of LVOT to aortic valve: 0.58. Valve area (Vmax): 1.7cm^2. Indexed valve area (Vmax): 1.1cm^2/m^2. Mean velocity ratio of LVOT to aortic valve: 0.55. Valve area (Vmean): 1.6cm^2. Indexed valve area (Vmean): 1.1cm^2/m^2. Mean gradient (S): 5.8mm Hg. Peak gradient (S): 11.9mm Hg. Aorta: Aortic root: The aortic root was normal in size. Ascending aorta: The ascending aorta was normal in size. Mitral valve: Mildly calcified annulus. Mobility was not restricted. Doppler: Transvalvular velocity was within the normal range. There was no evidence for stenosis. There was no significant regurgitation. Valve area by pressure half-time: 2.3cm^2. Indexed valve area by pressure half-time: 1.6cm^2/m^2. Left atrium: The atrium was moderately dilated. Right ventricle: The cavity size was normal. Wall thickness was normal. Pacer wire noted in right ventricle. Systolic function was normal. Pulmonic valve: Structurally normal valve. Doppler: Transvalvular velocity was within the normal range. There was no evidence for stenosis. There was trivial regurgitation. Peak gradient (S): 3.2mm Hg. Tricuspid valve: Structurally normal valve. Doppler: Transvalvular velocity was within the normal range. There was no evidence for stenosis. There was mild-moderate regurgitation. Pulmonary artery: Pulmonary systolic pressure was increased, in the range of 35mm Hg to 40mm Hg. Right atrium: The atrium was mildly dilated. Pericardium: There was no pericardial effusion. Systemic veins: Inferior vena cava: Well visualized. The vessel was patent and small, appearing collapsed, consistent with low central venous pressure. Baseline ECG: Paced rhythm. Measurements Left ventricle Value 10/05/2018 Reference LV ID, ED, PLAX 3.9 cm 4.0 3.5 - 6.0 LV ID, ES, PLAX 2.7 cm 2.7 2.1 - 4.0 LV PW thickness, ED, PLAX 1.1 cm 1.1 LV end-diastolic volume, 43 ml 54 1-p A2C LV ejection fraction, 1-p 67 % 59 A2C LV end-diastolic volume, 60 ml 49 1-p A4C LV ejection fraction, 1-p 63 % 59 A4C LV e', lateral 0.059 m/sec 0.052 LV E/e', lateral 9 10 LV e', medial 0.04 m/sec 0.041 LV E/e', medial 14 13 LV e', average 0.049 m/sec 0.047 LV E/e', average 11 11 Ventricular septum Value 10/05/2018 Reference IVS thickness, ED, PLAX 1.2 cm 1.2 LVOT Value 10/05/2018 Reference LVOT ID, A-P 1.9 cm 2.0 LVOT area 3 cm^2 3.1 LVOT peak velocity, S 1 m/sec 1.09 LVOT mean velocity, S 0.62 m/sec 0.84 LVOT VTI, S 21.7 cm 23.7 LVOT peak gradient, S 4 mm Hg 4.7 LVOT mean gradient, S 1.9 mm Hg 3.1 Stroke volume (SV), LVOT 64 ml 74 DP Stroke index (SV/bsa), 43 ml/m^2 52 LVOT DP Aortic valve Value 10/05/2018 Reference Aortic valve peak 1.7 m/sec 1.8 velocity, S Aortic valve mean 1.13 m/sec 1.2 velocity, S Aortic valve VTI, S 35.0 cm 34.0 Aortic mean gradient, S 5.8 mm Hg 6.5 Aortic peak gradient, S 11.9 mm Hg 12.5 VTI ratio, LVOT/AV 0.62 0.7 Aortic valve area, VTI 1.8 cm^2 2.2 Velocity ratio, peak, 0.58 0.61 LVOT/AV Aortic valve area, peak 1.7 cm^2 1.9 velocity Velocity ratio, mean, 0.55 0.7 LVOT/AV Aortic valve area, mean 1.6 cm^2 2.2 velocity Aortic valve area/bsa, 1.1 cm^2/m^2 1.5 mean velocity Aorta Value 10/05/2018 Reference Aortic root ID, ED 3.2 cm 3.2 Ascending aorta ID, A-P, S 3.5 cm 3.5 RVOT Value 10/05/2018 Reference RVOT VTI, S 14.5 cm Left atrium Value 10/05/2018 Reference LA ID, A-P, ES 4.1 cm 3.5 LA ID/bsa, A-P (H) 2.7 cm/m^2 2.4 <=2.2 LA area, ES, A4C 22.8 cm^2 26.1 8.8 - 23.4 LA area, ES, A2C 19 cm^2 LA volume/bsa, ES, 1-p A4C 49 ml/m^2 62 LA volume, ES, 2-p 57 ml LA volume/bsa, ES, 2-p 38 ml/m^2 LA/aortic root ratio 1.28 1.08 Mitral valve Value 10/05/2018 Reference Mitral E-wave peak 0.55 m/sec 0.52 velocity Mitral A-wave peak 0.74 m/sec 0.72 velocity Mitral deceleration time (H) 324 ms 330 150 - 230 Mitral pressure half-time 94 ms 96 Mitral E/A ratio, peak 0.74 0.72 Mitral valve area, PHT, DP 2.3 cm^2 2.3 Tricuspid valve Value 10/05/2018 Reference Tricuspid regurg peak 3.1 m/sec 2.9 velocity Tricuspid peak RV-RA 38.8 mm Hg 34.4 gradient Right atrium Value 10/05/2018 Reference RA area, ES, A4C (H) 21.5 cm^2 22.8 8.3 - 19.5 Pulmonic valve Value 10/05/2018 Reference Pulmonic peak gradient, S 3.2 mm Hg 3.6 Pulmonic regurg velocity, 0.9 m/sec ED Legend: (L) and (H) kiara values outside specified reference range. I have personally reviewed the images and have reviewed and edited the reported findings. Electronically signed by Luis Alfredo Kumar 11/21/2018 16:18
[2018-11-21 09:25] LABS: HCT 35.2 % (36.0-46.0); HGB 10.4 g/dL (12.0-15.5); Mean Corp. HGB Concentration 29.5 g/dL (32.0-36.0); Mean Corpuscular Hemoglobin 29.7 pg (27.0-33.0); Mean Corpuscular Volume 100.6 fL (80-95); Mean Platelet Volume 9.2 fL (8.0-11.0); Platelet Count 299 x1000/uL (130-400); RBC Distribution Width 17.1 % (11.7-14.6); White Blood Cell Count 8.78 k/cumm (4.4-10.8)
[2018-11-21 10:17] LABS: Anion Gap 9.5 mmol/L (3-11); BUN 26 mg/dL (7-18); CO2 29.5 mmol/L (21.0-32.0); CREATININE 1.37 mg/dL (0.55-1.02); Chloride 104 mmol/L (98-107); Estimated GFR 36.91 (mL/min/1.73m2); NT-proBNP 1621 pg/mL; Potassium 3.2 mmol/L (3.5-5.1); Sodium 143 mmol/L (136-145)
== END 2018-11-21 01:02 ==
PROVIDERS: PCP Specialist/Technologist Athletic Trainer; Visit Provider Internal Medicine Interventional Cardiology
DX: R06.02 Shortness of breath (principal); I50.1 Left ventricular failure, unspecified; I48.0 Paroxysmal atrial fibrillation; I10 Essential (primary) hypertension; Z95.0 Presence of cardiac pacemaker
CPT/HCPCS: 36415; 80051; 84520; 85027; 93306; 82565; 83880

== ENCOUNTER 2018-11-27 08:14 | Outpatient (CLI) | payer MEDICARE, SELFPAY | END 2018-11-27 08:34 | PROVIDERS: PCP Specialist/Technologist Athletic Trainer; Visit Provider Internal Medicine Interventional Cardiology | DX: I48.91 Unspecified atrial fibrillation (principal); I50.9 Heart failure, unspecified; I13.0 Hypertensive heart and chronic kidney disease with heart failure and stage 1 through stage 4 chronic kidney disease, or unspecified chronic kidney disease; N18.3 Chronic kidney disease, stage 3 (moderate); R55 Syncope and collapse | CPT/HCPCS: 99214; 93005; 93010 ==

== ENCOUNTER 2018-12-25 08:14 | Emergency (ER) | payer MEDICARE, SELFPAY ==
[2018-12-25 08:27] VITALS: BP 170/111; PULSE 65; RESP 18; TEMP 36.6; O2SAT 94
--- NOTE | 2018-12-25 08:29 | W.ED.GENAD ---
Discharge Plan Disposition Patient Disposition: HOME Condition: Fair Discharge Details Chief Complaint: GenMedical Clinical Impression: Hypertension, Edema extremities, Cellulitis Primary Care Provider: Fran Self ED Provider: Swetha Hernandez Home Meds and New Rx's Prescriptions: New isosorbide mononitrate 30 mg tablet extended release 24 hr 30 mg PO DAILY Qty: 20 RF: 0 cephalexin [Keflex] 500 mg capsule 500 mg PO BID Qty: 14 RF: 0 Continued sennosides [Senokot] 8.6 mg tablet 8.6 mg PO HS PRNRF: 0 torsemide 20 mg tablet 20 mg PO DAILY RF: 0 albuterol sulfate [Ventolin HFA] 90 mcg/actuation HFA aerosol inhaler 2 puff IH Q4H PRNRF: 0 losartan 25 mg tablet 12.5 mg PO DAILY RF: 0 isosorbide mononitrate 30 mg tablet extended release 24 hr 30 mg PO DAILY RF: 0 polyethylene glycol 3350 17 gram powder in packet 17 g PO DAILY PRNRF: 0 clonidine HCl 0.1 MG tablet 0.1 mg PO BID RF: 0 metoprolol tartrate 25 MG tablet 25 mg PO BID RF: 0 Eliquis 2.5 MG tablet 2.5 mg PO BID RF: 0 docusate sodium [Colace] 100 mg Capsule 100 mg PO TID Qty: 90 RF: 0 theophylline 200 mg tablet extended release 12 hr 200 mg PO DAILY RF: 0 dapsone 25 mg tablet 25 mg PO BID RF: 0 Breo Ellipta 100-25 mcg/dose Blister With Device 1 inh Inhalation DAILY RF: 0 hydralazine 25 mg tablet 25 mg PO TID RF: 0 Discharge Instructions Instructions: Cellulitis (ED), Edema (ED) Additional Instructions: Your blood pressure is elevated today. Dr. Roche has recommended you increase your isosorbide mononitrate. I have prescribed you more in case you are low. You are to take 30 mg tablet first thing in the morning and then another 30 mg tablet at noon. Please elevate your extremities and use compression hose daily. You have a follow-up appointment with Dr. Roche on January 01 at 1PM. Please contact them if the swelling in your lower extremities it does not improve by the end of the week. If you develop shortness of breath, fever/chills, increased pain or the new/worsening symptoms please seek care urgently once again. You have a skin infection on your toes, please take the Keflex as prescribed to help with the infection. If you notice that the redness spreads, you develop fever/chills or other new/worsening symptoms please seek care urgently once again. Otherwise, you have a follow-up appointment with Fran Self at 3 PM this for reevaluation. Referrals: Fran Self [Primary Care Provider] - 12/28/18 3:00 pm Matthieu Roche MD [ [facility]YSICIAN] - 01/01/19 1:00 pm Medical Decision Making Patient is an 83 year old female presenting today with c/c of 2,3 right toe erythema and pain that has been deveoping over the past few days. BLE x 2 weeks. Reviewed cardiology note from 11/27/18 which reviewed patients complicated CHF history. She has tried multiple medicatiosn for this with SE that have limited treatment. Had been doing well with stable weight and no edema at last visit. Patient has chronic SOB but reports unchanged, no CP. Consulted with Dr. Roche regarding BLE edema despite recent medication changes, also discussed patients high blood pressure. He advised increasing the patients daily Imdur. Advised adding 30mg tab at noon, continueing with her 30mg in the AM. Patient anemic but chronic compared to previous. Potassium low at 3.3, we will replenish this orally. Creatinine 1.36, stable for patient. BNP 2985, patient typically around 1600. When I spoke with Dr. Roche he advised treating the edema with compression hose and elevation, did not advise further diuretics at this time. Was able to make appointment for f/u with Dr. Roche in 2 weeks. Will add second dose of imdur as advised above. Patient will be started on Keflex, will dose BID with her kidney function, for her cellulitis of the toes. Made appointment with PCP in 3 days for f/u and reevaluation of her cellulitis. She was given strict return precautions. She was fitted with compression hose by nursing staff. All questions and concerns were addressed, she is in agreement with thsi plan. HPI General Mode of arrival: ambulatory. Date/Time Provider Initiated Documentation: 12/25/18 08:29. Limitations to Documentation: no limitations. Information obtained by: patient, family (accompanied by daughter) and RN notes reviewed. HPI Narrative: Patient is a 83 year old female, accompanied by her daughter, with c/c of bilateral lower extremity swelling. Patient has had issues with lower extremity swelling quite some time. They report that she has had exacerbation of her bilateral lower extremity edema over the past 2 weeks. Daughter did contact her restrooms or lounges maid and was advised to do 5 days of 40 mg of torsemide, increased with typical 20 mg tablets. She reports that this is completed 1 week ago and despite this, the swelling has persisted. Patient has tonic orthopnea but denies any increase in this. No chest pain. Is also noting erythema and pain to the second and third toe of the right foot. They report this is been increasing and worsening over the past few days. No known trauma. Related Data Home Medications Medication Instructions Recorded Confirmed Eliquis 2.5 mg PO BID tab-cap 09/17/16 11/27/18 clonidine HCl 0.1 mg PO BID tab-cap 09/17/16 11/27/18 metoprolol tartrate 25 mg PO BID tab-cap 09/17/16 11/27/18 Breo Ellipta 1 inh INHALATION DAILY 09/01/18 11/27/18 docusate sodium [Colace] 100 mg PO TID #90 cap 10/25/18 11/27/18 albuterol sulfate 90 mcg/actuation 2 puff IH Q4H PRN gm 10/30/18 11/27/18 aerosol inhaler hydralazine 25 mg tablet 25 mg PO TID tab 10/30/18 11/27/18 isosorbide mononitrate 30 mg 30 mg PO DAILY 10/30/18 11/27/18 tablet,extended release 24 hr losartan 25 mg tablet 12.5 mg PO DAILY tab 10/30/18 11/27/18 sennosides 8.6 mg tablet 8.6 mg PO HS PRN tab 10/30/18 11/27/18 torsemide 20 mg tablet 20 mg PO DAILY 10/30/18 11/27/18 dapsone 25 mg tablet 25 mg PO BID 11/27/18 11/27/18 polyethylene glycol 3350 17 gram 17 g PO DAILY PRN each 11/27/18 oral powder packet theophylline 200 mg 200 mg PO DAILY tab 07/01/19 07/01/19 tablet,extended release,12 hr cephalexin [Keflex] 500 mg PO BID #14 cap 12/25/18 isosorbide mononitrate 30 mg PO DAILY #20 tab 12/25/18 Previous Rx's Medication Instructions Recorded docusate sodium [Colace] 100 mg PO TID #90 cap 10/25/18 cephalexin [Keflex] 500 mg PO BID #14 cap 12/25/18 isosorbide mononitrate 30 mg PO DAILY #20 tab 12/25/18 Allergies Allergy/AdvReac Type Severity Reaction Status Date / Time adhesive Allergy Unverified 12/25/18 08:31 gluten Allergy Unverified 12/25/18 08:31 pork derived (porcine) Allergy Unverified 12/25/18 08:31 dapsone AdvReac dizziness, Verified 12/25/18 08:31 headache, nausea coumadin Allergy Uncoded 12/25/18 08:31 dairy Allergy Uncoded 12/25/18 08:31 eggs Allergy Uncoded 12/25/18 08:31 flu vaccine Allergy Uncoded 12/25/18 08:31 tape Allergy Uncoded 12/25/18 08:31 General WESLEY: 2 Review of Systems Constitutional Reports as per HPI, Denies chills, Denies fever(s), Denies headache(s), Denies lethargy and Denies poor appetite Eyes Denies change in vision ENT Denies dizziness and Denies headache(s) Cardiovascular Reports as per HPI, Denies chest pain, Reports leg edema, Denies lightheadedness, Denies palpitations, Denies dyspnea, Reports dyspnea on exertion and Reports orthopnea Respiratory Reports as per HPI, Denies chest congestion, Denies cough, Denies pain on inspiration, Denies pain with cough, Denies dyspnea, Reports dyspnea on exertion and Denies wheezing Gastrointestinal Reports as per HPI, Denies abdominal pain, Denies diarrhea, Denies nausea and Denies vomiting Musculoskeletal Reports as per HPI and Denies back pain Integumentary/Breasts Reports as per HPI and Denies rash Neurologic Reports as per HPI, Denies dizziness and Denies headache(s) Endocrine Denies palpitations Allergic/Immunologic Denies wheezing [facility] Medical History Asthma (Chronic) Asthma (Chronic) Atrial fibrillation (Chronic) CHF (congestive heart failure) (Chronic) CHF (congestive heart failure) (Chronic) Chronic kidney disease (Acute) CKD (chronic kidney disease) (Chronic) COPD (chronic obstructive pulmonary disease) (Chronic) Depression (Chronic) HTN (hypertension) (Chronic) Hypercalcemia (Chronic) Hypertension (Chronic) PAF (paroxysmal atrial fibrillation) (Chronic) Presence of permanent cardiac pacemaker (Chronic) Pulmonary hypertension (Chronic) Surgical History AICD (automatic cardioverter/defibrillator) present (Acute) H/O thoracic aortic aneurysm repair (Acute) History of thoracic aortic aneurysm repair (Chronic) Pacemaker (Acute) Social History Smoking/Tobacco Use Status: Never Alcohol Intake: never Substance use type: does not use Do you feel safe at home: Yes Do you feel safe in your relationship?: Yes Exam Const General: cooperative, healthy appearing, comfortable, no acute distress and well developed Nutritional Appearance: average body habitus and well nourished Orientation: alert, awake and oriented x3 HENMT Head: normal to inspection Ears: hearing grossly normal bilaterally Mouth: moist mucous membranes Chest Chest: normal inspection of the chest, normal palpation of entire chest wall and no crepitus Resp Effort & Inspection: normal respiratory effort, able to speak in complete sentences and no respiratory distress Auscultation: crackles bilaterally at the base, no rales, no rhonchi and no wheezes Cardio Rate: regular rate Rhythm: regular rhythm Heart Sounds: S1 normal, S2 normal and murmur systolic GI Inspection: normal to inspection, no edema and non-distended Palpation: soft, no hepatosplenomegaly, not firm, no guarding, not rigid and nontender Auscultation: normal bowel sounds Back/Spine/Pelvis Back: no CVA tenderness Thoracic/Lumbar Spine: thoracic and lumbar spine normal to inspection Skin General skin exam: erythema (2nd and 3rd dorsal toes, warm. ) and no fluctuance Neuro General: alert, awake and oriented x3 Cognition: normal cognition Speech: speech normal Gait: normal gait Extrem General: normal capillary refill, no calf tenderness, normal gait and edema Laterality: bilateral (1+ pitting edema) Right lower extremity: normal capillary refill and foot (erythematous toes as above) Left lower extremity: normal capillary refill Psych Appearance: grossly normal and well kempt Mental Status: mental status grossly normal Speech and Movement: speech and movement normal
[2018-12-25 09:11] LABS: Abs Immature Grans 0.02 k/cumm (0.0-0.09); Absolute Basophil Count 0.06 k/cumm (0.0-0.2); Absolute Eosinophil Count 0.94 k/cumm (0.0-0.7); Absolute Lymphocyte Count 1.35 k/cumm (1.2-3.4); Absolute Monocyte Count 0.68 k/cumm (0.11-0.7); Absolute Neutrophil Count 5.57 k/cumm (1.2-6.7); Basophils % 0.7; Eosinophils % 10.9; HGB 10.2 g/dL (12.0-15.5); Immature Grans % 0.2; Lymphocytes % 15.7; Mean Corp. HGB Concentration 30.9 g/dL (32.0-36.0); Mean Corpuscular Volume 103.4 fL (80-95); Mean Platelet Volume 9.3 fL (8.0-11.0); Monocytes % 7.9; Neutrophils % 64.6; Platelet Count 260 x1000/uL (130-400); RBC 3.19 m/cumm (4.00-5.20); RBC Distribution Width 14.2 % (11.7-14.6); White Blood Cell Count 8.62 k/cumm (4.4-10.8)
[2018-12-25 09:51] LABS: ALT 13 U/L (12-78); AST 17 U/L (15-37); Albumin 3.7 g/dL (3.4-5.0); Alkaline Phosphatase 74 U/L (46-116); Anion Gap 8.8 mmol/L (3-11); BUN 24 mg/dL (7-18); Bilirubin, Total 0.5 mg/dL (0.2-1.0); CO2 29.2 mmol/L (21.0-32.0); CREATININE 1.36 mg/dL (0.55-1.02); Calcium 11.3 mg/dL (8.5-10.1); Chloride 106 mmol/L (98-107); Estimated GFR 37.23 (mL/min/1.73m2); Glucose 90 mg/dL (70-100); NT-proBNP 2985 pg/mL; Potassium 3.3 mmol/L (3.5-5.1); Sodium 144 mmol/L (136-145); Total Protein 7.8 g/dL (6.4-8.2)
== END 2018-12-25 11:14 | disposition home or self-care (01) ==
PROVIDERS: Emergency Provider Physician Assistant; PCP Specialist/Technologist Athletic Trainer
DX: I13.0 Hypertensive heart and chronic kidney disease with heart failure and stage 1 through stage 4 chronic kidney disease, or unspecified chronic kidney disease (principal); R60.0 Localized edema; L03.031 Cellulitis of right toe; E87.6 Hypokalemia; I50.9 Heart failure, unspecified; N18.9 Chronic kidney disease, unspecified; J44.9 Chronic obstructive pulmonary disease, unspecified
CPT/HCPCS: 36415; 80053; 99283; 83880; 85025; 99284

== ENCOUNTER 2018-12-28 21:24 | Outpatient (REF) | payer MEDICARE, SELFPAY ==
[2018-12-28 21:13] LABS: Abs Immature Grans 0.02 k/cumm (0.0-0.09); HCT 32.5 % (36.0-46.0); HGB 9.9 g/dL (12.0-15.5); Mean Corp. HGB Concentration 30.5 g/dL (32.0-36.0); Mean Corpuscular Hemoglobin 31.8 pg (27.0-33.0); Mean Corpuscular Volume 104.5 fL (80-95); Platelet Count 275 x1000/uL (130-400); RBC 3.11 m/cumm (4.00-5.20); White Blood Cell Count 7.85 k/cumm (4.4-10.8)
[2018-12-28 21:55] LABS: Absolute Monocyte Count 0.24 k/cumm (0.11-0.7); Absolute Neutrophil Count 4.32 k/cumm (1.2-6.7); Atypical Lymphocytes % 0; Diff Comment Manual Differential; Polychromasia Present
[2018-12-28 22:13] LABS: Iron 54 ug/dL (50-175); Total Iron Binding Capacity 287 ug/dL (250-450); Transferrin Sat 19 % (15-50)
[2018-12-28 22:31] LABS: Folate 18.6 ng/mL (8.6-20.0); TSH (W/Ref FT4) 2.61 uIU/mL (0.36-3.74); Vitamin B12 694 pg/mL (193-986)
== END 2018-12-28 21:44 ==
LOC: NCHCN 21:24
PROVIDERS: PCP Specialist/Technologist Athletic Trainer; Visit Provider Specialist/Technologist Athletic Trainer
DX: D64.9 Anemia, unspecified (principal)
CPT/HCPCS: 82607; 82746; 83540; 83550; 84443; 85025

== ENCOUNTER 2019-01-01 09:40 | Outpatient (CLI) | payer MEDICARE, SELFPAY | END 2019-01-01 10:00 | PROVIDERS: PCP Specialist/Technologist Athletic Trainer; Visit Provider Internal Medicine Interventional Cardiology | DX: I48.91 Unspecified atrial fibrillation (principal); I50.9 Heart failure, unspecified; I13.0 Hypertensive heart and chronic kidney disease with heart failure and stage 1 through stage 4 chronic kidney disease, or unspecified chronic kidney disease; J44.9 Chronic obstructive pulmonary disease, unspecified; N18.3 Chronic kidney disease, stage 3 (moderate) | CPT/HCPCS: 99214; 93005; 93010 ==

== ENCOUNTER 2019-01-15 09:04 | Outpatient (CLI) | payer MEDICARE, SELFPAY ==
[2019-01-15 09:46] LABS: HCT 34.1 % (36.0-46.0); HGB 10.4 g/dL (12.0-15.5); Mean Corp. HGB Concentration 30.5 g/dL (32.0-36.0); Mean Corpuscular Hemoglobin 31.2 pg (27.0-33.0); Mean Corpuscular Volume 102.4 fL (80-95); Mean Platelet Volume 9.4 fL (8.0-11.0); Platelet Count 286 x1000/uL (130-400); RBC 3.33 m/cumm (4.00-5.20); White Blood Cell Count 8.09 k/cumm (4.4-10.8)
[2019-01-15 10:45] LABS: Anion Gap 8.4 mmol/L (3-11); BUN 26 mg/dL (7-18); CO2 29.6 mmol/L (21.0-32.0); CREATININE 1.45 mg/dL (0.55-1.02); Chloride 107 mmol/L (98-107); Estimated GFR 34.57 (mL/min/1.73m2); NT-proBNP 2960 pg/mL; Potassium 3.1 mmol/L (3.5-5.1); Sodium 145 mmol/L (136-145)
== END 2019-01-15 09:24 ==
PROVIDERS: PCP Specialist/Technologist Athletic Trainer; Visit Provider Internal Medicine Interventional Cardiology
DX: I48.91 Unspecified atrial fibrillation (principal); R07.9 Chest pain, unspecified; I27.20 Pulmonary hypertension, unspecified; I50.9 Heart failure, unspecified
CPT/HCPCS: 36415; 80051; 84520; 85027; 82565; 83880

== ENCOUNTER 2019-01-31 09:10 | Outpatient (CLI) | payer MEDICARE, SELFPAY | END 2019-01-31 09:30 | PROVIDERS: PCP Specialist/Technologist Athletic Trainer; Visit Provider Internal Medicine Interventional Cardiology | DX: I50.9 Heart failure, unspecified (principal); I48.91 Unspecified atrial fibrillation; I11.0 Hypertensive heart disease with heart failure; R55 Syncope and collapse | CPT/HCPCS: 99214; 93005; 93010 ==

== ENCOUNTER → 2019-03-12 09:26 | Outpatient (BNVA) | payer MEDICARE, SELFPAY | PROVIDERS: PCP Specialist/Technologist Athletic Trainer; Referring Provider Specialist/Technologist Athletic Trainer; Visit Provider Internal Medicine Cardiovascular Disease | DX: I48.0 Paroxysmal atrial fibrillation (principal); I13.0 Hypertensive heart and chronic kidney disease with heart failure and stage 1 through stage 4 chronic kidney disease, or unspecified chronic kidney disease; I27.20 Pulmonary hypertension, unspecified; I50.9 Heart failure, unspecified; Z95.0 Presence of cardiac pacemaker; N18.9 Chronic kidney disease, unspecified; J44.9 Chronic obstructive pulmonary disease, unspecified | CPT/HCPCS: 99205; 99215 ==

== ENCOUNTER 2019-03-12 10:12 | Outpatient (CLI) | payer MEDICARE, SELFPAY ==
[2019-03-12 10:51] LABS: HCT 36.3 % (36.0-46.0); HGB 11.2 g/dL (12.0-15.5); Mean Corp. HGB Concentration 30.9 g/dL (32.0-36.0); Mean Corpuscular Hemoglobin 29.6 pg (27.0-33.0); Mean Corpuscular Volume 95.8 fL (80-95); Mean Platelet Volume 9.2 fL (8.0-11.0); Platelet Count 269 x1000/uL (130-400); RBC 3.79 m/cumm (4.00-5.20); White Blood Cell Count 7.61 k/cumm (4.4-10.8)
[2019-03-12 11:54] LABS: BUN 22 mg/dL (7-18); CREATININE 1.47 mg/dL (0.55-1.02); Chloride 105 mmol/L (98-107); Estimated GFR 33.95 (mL/min/1.73m2); NT-proBNP 3971 pg/mL; Potassium 4.3 mmol/L (3.5-5.1); Sodium 142 mmol/L (136-145)
== END 2019-03-12 10:32 ==
PROVIDERS: PCP Specialist/Technologist Athletic Trainer; Visit Provider Internal Medicine Interventional Cardiology
DX: I48.91 Unspecified atrial fibrillation (principal); I50.9 Heart failure, unspecified; I10 Essential (primary) hypertension; I27.20 Pulmonary hypertension, unspecified; N18.9 Chronic kidney disease, unspecified; J44.9 Chronic obstructive pulmonary disease, unspecified; Z95.0 Presence of cardiac pacemaker; I13.0 Hypertensive heart and chronic kidney disease with heart failure and stage 1 through stage 4 chronic kidney disease, or unspecified chronic kidney disease; I48.0 Paroxysmal atrial fibrillation
CPT/HCPCS: 36415; 80051; 84520; 85027; 99215; 82565; 83880

== ENCOUNTER → 2019-06-13 08:17 | Outpatient (BNVA) | payer MEDICARE, SELFPAY | PROVIDERS: PCP Specialist/Technologist Athletic Trainer; Referring Provider Specialist/Technologist Athletic Trainer; Visit Provider Internal Medicine Cardiovascular Disease | DX: I48.91 Unspecified atrial fibrillation (principal); Z95.0 Presence of cardiac pacemaker | CPT/HCPCS: 99024 ==

== ENCOUNTER → 2019-06-28 08:42 | Outpatient (BNVA) | payer MEDICARE, SELFPAY | PROVIDERS: PCP Specialist/Technologist Athletic Trainer; Referring Provider Specialist/Technologist Athletic Trainer; Visit Provider Internal Medicine Cardiovascular Disease | DX: I50.9 Heart failure, unspecified (principal); I48.0 Paroxysmal atrial fibrillation; N17.8 Other acute kidney failure; Z95.0 Presence of cardiac pacemaker; I27.20 Pulmonary hypertension, unspecified; I11.0 Hypertensive heart disease with heart failure | CPT/HCPCS: 99214 ==

== ENCOUNTER 2019-07-03 08:14 | Outpatient (CLI) | payer MEDICARE, SELFPAY ==
[2019-07-03 08:43] LABS: Anion Gap 5.4 mmol/L (3-11); BUN 27 mg/dL (7-18); CO2 29.6 mmol/L (21.0-32.0); Calcium 9.7 mg/dL (8.5-10.1); Chloride 107 mmol/L (98-107); Glucose 58 mg/dL (74-106); Potassium 4.2 mmol/L (3.5-5.1); Sodium 142 mmol/L (136-145)
== END 2019-07-03 08:34 ==
PROVIDERS: PCP Specialist/Technologist Athletic Trainer; Visit Provider Internal Medicine Cardiovascular Disease
DX: I50.9 Heart failure, unspecified (principal); Z79.899 Other long term (current) drug therapy
CPT/HCPCS: 36415; 80048

== ENCOUNTER 2019-07-05 08:59 | Outpatient (CLI) | payer MEDICARE, SELFPAY ==
[2019-07-05 10:22] LABS: BUN 30 mg/dL (7-18); CREATININE 1.44 mg/dL (0.55-1.02); Calcium 10.1 mg/dL (8.5-10.1); Chloride 102 mmol/L (98-107); Estimated GFR 34.76 (mL/min/1.73m2); Glucose 94 mg/dL (74-106); Potassium 4.1 mmol/L (3.5-5.1); Sodium 142 mmol/L (136-145)
== END 2019-07-05 09:19 ==
PROVIDERS: PCP Specialist/Technologist Athletic Trainer; Visit Provider Internal Medicine Cardiovascular Disease
DX: I50.9 Heart failure, unspecified (principal); N17.9 Acute kidney failure, unspecified
CPT/HCPCS: 36415; 80048

== ENCOUNTER 2019-07-12 09:53 | Outpatient (CLI) | payer MEDICARE, SELFPAY ==
[2019-07-12 11:04] LABS: Anion Gap 7.6 mmol/L (3-11); BUN 54 mg/dL (7-18); CO2 32.4 mmol/L (21.0-32.0); Calcium 10.4 mg/dL (8.5-10.1); Chloride 100 mmol/L (98-107); Estimated GFR 22.49 (mL/min/1.73m2); Glucose 85 mg/dL (74-106); Potassium 3.5 mmol/L (3.5-5.1); Sodium 140 mmol/L (136-145)
== END 2019-07-12 10:13 ==
LOC: LBO 09:53 → NCHCO 10:04
PROVIDERS: Internal Medicine Cardiovascular Disease; PCP Specialist/Technologist Athletic Trainer; Visit Provider Specialist/Technologist Athletic Trainer
DX: I50.9 Heart failure, unspecified (principal)
CPT/HCPCS: 36415; 80048

== ENCOUNTER 2019-07-16 08:39 | Outpatient (CLI) | payer MEDICARE, SELFPAY ==
[2019-07-16 10:52] LABS: Anion Gap 9.2 mmol/L (3-11); BUN 79 mg/dL (7-18); CO2 31.8 mmol/L (21.0-32.0); CREATININE 2.68 mg/dL (0.55-1.02); Calcium 10.1 mg/dL (8.5-10.1); Chloride 99 mmol/L (98-107); Estimated GFR 16.97 (mL/min/1.73m2); Glucose 100 mg/dL (74-106); Potassium 3.7 mmol/L (3.5-5.1); Sodium 140 mmol/L (136-145)
== END 2019-07-16 08:59 ==
PROVIDERS: PCP Specialist/Technologist Athletic Trainer; Visit Provider Internal Medicine Cardiovascular Disease
DX: I48.0 Paroxysmal atrial fibrillation (principal); N18.9 Chronic kidney disease, unspecified; N17.9 Acute kidney failure, unspecified; I50.9 Heart failure, unspecified; Z95.0 Presence of cardiac pacemaker; I13.0 Hypertensive heart and chronic kidney disease with heart failure and stage 1 through stage 4 chronic kidney disease, or unspecified chronic kidney disease; I27.20 Pulmonary hypertension, unspecified
CPT/HCPCS: 36415; 80048; 99214

== ENCOUNTER → 2019-07-17 08:03 | Outpatient (BNVA) | payer MEDICARE, SELFPAY | PROVIDERS: PCP Specialist/Technologist Athletic Trainer; Referring Provider Specialist/Technologist Athletic Trainer; Visit Provider Internal Medicine Cardiovascular Disease | DX: R69 Illness, unspecified (principal) | CPT/HCPCS: 99214 ==

== ENCOUNTER 2019-07-17 08:44 | Inpatient (IN) | payer MEDICARE, SELFPAY ==
[2019-07-17] VITALS (11 sets, daily range): BP systolic 94–149; BP diastolic 55–69; PULSE 58–63; RESP 16–18; TEMP 36.1–37; O2SAT 94–98
[2019-07-17 09:28] LABS: Anion Gap 8.7 mmol/L (3-11); BUN 75 mg/dL (7-18); CO2 32.3 mmol/L (21.0-32.0); CREATININE 2.49 mg/dL (0.55-1.02); Calcium 10.2 mg/dL (8.5-10.1); Chloride 98 mmol/L (98-107); Estimated GFR 18.48 (mL/min/1.73m2); Glucose 100 mg/dL (74-106); Magnesium 2.4 mg/dL (1.8-2.4); Potassium 3.4 mmol/L (3.5-5.1); Sodium 139 mmol/L (136-145); Troponin I < 0.05 ng/Ml (<0.06)
[2019-07-17 09:30] LABS: NT-proBNP 1780 pg/mL (<300)
--- NOTE | 2019-07-17 10:07 | DI.RAD_ITS ---
EXAM: XR PORTABLE CHEST AP INDICATION: CHF. COMPARISON: XR CHEST 2V PA LATERAL from 10/17/2018 TECHNIQUE: 2D digital imaging was performed. FINDINGS: The heart is mildly enlarged but stable. Pulmonary vasculature is within normal limits. The pacing wires are stable in position. Mediastinal wires are in place. There is an unchanged scoliotic curva ture of the spine. Chronic interstitial changes are present in the lungs particularly on the right. No focal consolidating infiltrate or effusion is seen. IMPRESSION: No definite acute pulmonary process. No change in appearance of the chest x-ray compared to the prio r examination.
[2019-07-17] MEDS: Furosemide 40 MG/4 ML VIAL IVP (11:41)
[2019-07-17 12:25] LABS: Bilirubin Negative (Negative); Blood Negative (Negative); Clarity Clear (Clear); Glucose Negative (Negative); Ketones Negative (Negative); Leukocyte Esterase Negative (Negative); Nitrite Negative (Negative); Specific Gravity 1.015 (1.005-1.025); Urobilinogen 0.2 EU/dL (Up TO 0.2)
[2019-07-17] MEDS: Potassium Chloride 20 MEQ TABCR 40 MEQ PO (12:33)
[2019-07-17] MEDS: hydrALAZINE 25 MG TAB PO ×2 (14:29→20:29)
--- NOTE | 2019-07-17 16:58 | W.PM.HP.N ---
Date of service: 07/17/19 Time of Service: 16:59 Assessment and Plan Assessment and plan (1) Acute on chronic diastolic CHF (congestive heart failure), NYHA class 1: Status: Acute Assessment and plan: The patient did not diurese appropriately, per cardiology, on the regimen of lasix 100 mg PO daily and metolazone. Could be due to progressive chronic kidney disease. Admitted to inpatient service with lasix gtt. MOnitor I/O's, daily weights. Check repeat echo. If Cr worsens, will seek nephrology consultation (2) Pulmonary hypertension: Status: Chronic Assessment and plan: As above - diurese, carefully monitoring pulmonary status and renal function. (3) Acute kidney injury superimposed on chronic kidney disease: Status: Resolved Assessment and plan: On one hand, could get better with diuresis as it sometimes happens with pulmonary hypertension. On the other hand, if fluid overload is product of worsening kidney failure, then kidney function might worsen. Will monitor I/O's, daily weights, Cr. May have to seek nephrology consultation. Check TSH. Check renal US. (4) Generalized pruritus: Status: Acute Assessment and plan: Has a h/o bullous pemphigoid and some of the features are suggestive of recurrence. On the other hand, could also have uremic pruritis. Fow now, will trial calamine lotion, as well as lac-hytrin and triamcinolone. If no improvement, will seek dermatology consultation. (5) PAF (paroxysmal atrial fibrillation): Status: Chronic Assessment and plan: Patient's kidney function is too poor for anticoagulation with eliquis - on hold at this time. Otherwise, continue outpatient therapy. (6) DVT prophylaxis: Status: Acute Assessment and plan: Will start on SC heparin. (7) Discharge planning issues: Status: Acute Assessment and plan: DNR/DNI History of Present Illness History of Present Illness Chief Complaint: shortness of breath, leg swelling, itching; sent by cardiology Narrative: Ms Win is an 84 year old female with PMHx of chronic diastolic CHF, pulmonary hypertension, CKD III-IV, Afib s/p pacer, on eliquis, bullous pemphigoid, asthma, who was sent for direct admission after being seen by Dr Mancera in the Cardiology clinic today, having failed to respond to increased dose of oral diuretics as outpatient. The patient reports episodic shortness of breath and leg swelling. Denies dizziness, chest pain, nausea. Even more bothersome to her is itching all over, and she has been scratching. The patient was admitted to [facility] hospitalist service for diuresis with lasix drip. The patient sees Dr Colindres of dermatology. The last time she saw dermatology for her bullous pemphigoid was in October of 2018. At that time, she was on dapsone taper which she has since completed. Review of Systems All systems reviewed & are unremarkable except as noted in HPI and below PFSH Social History Smoking/Tobacco Use Status: Never Alcohol Intake: never Substance use type: does not use Do you feel safe at home: Yes Do you feel safe in your relationship?: Yes Meds Home Medications and Allergies Home Medications Medication Instructions Recorded Confirmed Type Eliquis 2.5 mg PO BID tab-cap 09/17/16 07/17/19 History clonidine HCl 0.1 mg PO BID tab-cap 09/17/16 07/17/19 History metoprolol tartrate 25 mg PO BID tab-cap 09/17/16 07/17/19 History Breo Ellipta 1 inh INHALATION DAILY 09/01/18 07/17/19 History albuterol sulfate 90 mcg/actuation 2 puff IH Q4H PRN gm 10/30/18 07/17/19 History aerosol inhaler hydralazine 25 mg tablet 25 mg PO TID tab 10/30/18 07/17/19 History sennosides 8.6 mg tablet 8.6 mg PO HS PRN tab 10/30/18 07/17/19 History polyethylene glycol 3350 17 gram 17 g PO DAILY PRN each 11/27/18 07/17/19 History oral powder packet losartan 25 mg tablet 25 mg PO DAILY 01/05/19 07/17/19 History potassium chloride 20 mEq 20 meq PO DAILY 01/31/19 07/17/19 History tablet,extended release isosorbide mononitrate 30 mg 30 mg PO DAILY #90 tab 03/07/19 07/17/19 Rx tablet,extended release 24 hr docusate sodium 100 mg capsule 100 mg PO TID PRN cap 06/13/19 07/17/19 History metolazone 2.5 mg tablet 2.5 mg PO Q OTHER DAY #30 tab 07/05/19 07/17/19 Rx furosemide 20 mg tablet 100 mg PO DAILY #180 tab 07/10/19 07/17/19 Rx fexofenadine 60 mg PO BID 07/17/19 07/17/19 History montelukast [Singulair] 10 mg PO QHS 07/17/19 07/17/19 History pantoprazole 40 mg PO DAILY 07/17/19 07/17/19 History theophylline 200 mg PO DAILY 07/17/19 07/17/19 History Allergies Allergy/AdvReac Type Severity Reaction Status Date / Time adhesive Allergy Unverified 07/17/19 08:19 gluten Allergy Unverified 07/17/19 08:19 pork derived (porcine) Allergy Unverified 07/17/19 08:19 dapsone AdvReac dizziness, Verified 07/17/19 08:19 headache, nausea coumadin Allergy Uncoded 07/17/19 08:19 dairy Allergy Uncoded 07/17/19 08:19 eggs Allergy Uncoded 07/17/19 08:19 flu vaccine Allergy Uncoded 07/17/19 08:19 tape Allergy Uncoded 07/17/19 08:19 Exam Narrative Exam Narrative: General: very pleasant elderly female, A&Ox3, recognizes me, but forgetful (baseline), appears comfortable laying in bed at a 30 degree angle Neurological: A&Ox3, no focal deficits Psychiatric: Appropriate speech pattern/content Skin: excoriations throughout with evidence of small blisters on her chest which have been scratched open HEENT: Atraumatic, normocephalic, EOMI, MMM, clear ororpharynx, no submandibular or cervical lymphadenopathy, no goiter or JVD Cardiovascular: Irregularly irregular rhythm Lungs: crackles at R base, otherwise somewhat coarse throughout Gastrointestinal: soft, nontender, nondistended Genitourinary: has a weaver - clear light yellow urine Extremities: +1 BLE edema; excoriations throughout; trace pedal pulses. Results Imaging Additional studies: CXR; No definite acute pulmonary process. No change in appearance of the chest x-ray compared to the prior examination. Labs Result diagrams: 07/17/19 09:00 Labs: Laboratory Results - last 24 hr 07/17/19 07/17/19 07/17/19 09:00 09:00 11:15 Sodium 139 Potassium 3.4 L Chloride 98 Carbon Dioxide 32.3 H Anion Gap 8.7 BUN 75 H Creatinine 2.49 H Estimated GFR/1.73 m2 18.48 Glucose 100 Calcium 10.2 H Magnesium 2.4 Troponin I < 0.05 NT-Pro-B Natriuret Pep 1780 H Urine Color Yellow Urine Clarity Clear Urine pH 7.0 Ur Specific [place] 1.015 Urine Protein Negative Urine Ketones Negative Urine Blood Negative Urine Nitrite Negative Urine Bilirubin Negative Urine Urobilinogen 0.2 Ur Leukocyte Esterase Negative Urine Glucose Negative Last Vital Signs Temp 36.1 C L 07/17/19 15:33 Pulse 63 07/17/19 15:46 Resp 18 07/17/19 15:33 BP 106/56 L 07/17/19 16:16 Pulse Ox 98 07/17/19 15:33
[2019-07-17] MEDS: Lachydrin 12% LOTION 225 GM BTL TP (20:28)
[2019-07-17] MEDS: cloNIDine 0.1 MG TAB PO (20:29)
[2019-07-17] MEDS: Metoprolol 25 MG TAB PO (20:29)
[2019-07-17] MEDS: Acetaminophen 325 MG TAB PO (23:08)
[2019-07-17] MEDS: Montelukast 10 MG TAB PO (23:08)
[2019-07-17] MEDS: Normal Saline Flush 10 ML SYR IVP (23:30)
[2019-07-18] VITALS (9 sets, daily range): BP systolic 94–131; BP diastolic 57–73; PULSE 60–72; RESP 17–18; TEMP 36.5–37.4; O2SAT 93–99
[2019-07-18] MEDS: Potassium Chloride 20 MEQ TABCR PO (07:47)
[2019-07-18] MEDS: Lachydrin 12% LOTION 225 GM BTL TP ×3 (07:47→20:22)
[2019-07-18] MEDS: Pantoprazole 40 MG TABCR PO (07:47)
[2019-07-18] MEDS: cloNIDine 0.1 MG TAB PO ×2 (07:48→20:21)
[2019-07-18] MEDS: Isosorbide Mononitrate 30 MG TABCR PO (07:48)
[2019-07-18] MEDS: Metoprolol 25 MG TAB PO ×2 (07:48→20:21)
[2019-07-18] MEDS: hydrALAZINE 25 MG TAB PO (07:48)
[2019-07-18 07:59] LABS: HCT 36.5 % (36.0-46.0); HGB 11.3 g/dL (12.0-15.5); Mean Corpuscular Hemoglobin 28.5 pg (27.0-33.0); Mean Corpuscular Volume 92.2 fL (80-95); Mean Platelet Volume 9.6 fL (8.0-11.0); Platelet Count 309 x1000/uL (130-400); RBC 3.96 m/cumm (4.00-5.20)
--- NOTE | 2019-07-18 08:00 | DI.US_ITS ---
EXAM: US RENAL CLINICAL HISTORY: ZAFAR on CKD. TECHNIQUE: Burk scale, color and spectral Doppler were used. COMPARISON: No previous for comparison. FINDINGS: Renal size in cm: Right: 7.5 left: 8.3 Echogenicity: Normal Hydronephrosis: No Cyst or mass: No Nephrolithiasis: No Other findings: None Bladder:Incompletely distended. There is a Nieves catheter in place. Prevoid vol:36 cc DOPPLER FINDINGS: Normal and symmetric blood flow to the kidneys. IMPRESSION: No acute abnormality.
[2019-07-18 08:28] LABS: Anion Gap 9.5 mmol/L (3-11); BUN 79 mg/dL (7-18); CO2 32.5 mmol/L (21.0-32.0); CREATININE 2.17 mg/dL (0.55-1.02); Calcium 10.1 mg/dL (8.5-10.1); Chloride 94 mmol/L (98-107); Estimated GFR 21.66 (mL/min/1.73m2); Glucose 84 mg/dL (74-106); Magnesium 2.1 mg/dL (1.8-2.4); Potassium 3.1 mmol/L (3.5-5.1); Sodium 136 mmol/L (136-145)
--- NOTE | 2019-07-18 08:55 | DI.US_ITS ---
APPROVED REPORT EXAM: Comprehensive 2D, Doppler, and color-flow Echocardiogram Patient Location: In-Patient Case Management Manager: Zaira Barrientos RDCS (AE) Rhythm: Pacemaker Indications: worsening CHF Conclusion Mild to moderate concentric left ventricular hypertrophy. Estimated ejection fraction is 55 to 60%. There are no segmental wall motion abnormalities. There is elevated LVEDP Both atria are mildly dilated The aortic valve is trileaflet and sclerotic. There is no aortic stenosis. There is trace aortic re gurgitation There is mild mitral annular calcification. Mitral leaflets are normal. There is trace mitral regur gitation Tricuspid valve leaflets are mildly thickened. There is moderate tricuspid regurgitation. Estimated right ventricular systolic pressure is 39 mmHg Wall motion Left Ventricle The left ventricle is normal size. The left ventricular ejection fraction is within the normal range. Mild to moderate concentric ventricular hypertrophy. There is normal LV segmental wall motion. Left ventricular end diastolic pressure is elevated. LVEF is estimated to be 55-60%. Right Ventricle The right ventricle is normal size. Right ventricle appears mildly hypokinetic. A device wire was not ed. Atria Left atrium is mildly dilated. Right atrium is mildly dilated. Aortic Valve The Aortic valve is sclerotic. Aortic valve is trileaflet. There is no aortic valvular stenosis. Triv ial aortic regurgitation Mitral Valve Mild mitral annular calcification. Trace mitral regurgitation. Tricuspid Valve Tricuspid valve leaflets are thickened but open well. Moderate tricuspid regurgitation. Great Vessels The aortic root is normal in size. The IVC is small. The IVC collapses >50% with inspiration. Pericardium Prominent anterior epicardial fat pad is present. 2D Dimensions IVSD d PLAX 1.29 cm LV Vol A2C d MOD 33.1 mL LVPW d PLAX 1.26 cm LV Vol A4C d MOD 62.5 mL LVID d PLAX 3.89 cm LA vol/ BSA A2C s A-L 28.5 mL/m2 LVDs 2.50 cm LA vol/ BSA A4C s A-L 60.2 mL/m2 Ao Root d 3.11 cm LA Vol/ BSA Biplane s A-L 42.8 mL/m2 RA Area A4C 20.33 cm2 LA Area A4C s MOD 26.30 cm2 RA Vol/ BSA A4C s A-L 42.3 mL/m2 LA Area A2C s MOD 17.52 cm2 Ao Asc Diam d 3.56 cm LV EF A4C MOD 63.8 % LV EF Teichholz 64.7 % LV EF A2C MOD 52.9 % LVEF (Rowley's) 58.84 % LV EF Biplane MOD 58.8 % LV Volume 38.18 mL IVC Diam exp d SLAX 1.15 cm LV Volume Index 40.89 mL/m2 LV Vol Biplane MOD 46.2 mL FS 34.80 % M-Mode TAPSE 1.13 cm (M/F) <1.7 LV Diastology MV E' medial 0.049 (>0.07 m/s) E/A Ratio 0.95 LV E/e MED 12.05 (<14) MV E Vmax 0.60 (0.4-1.3 m/s) MV E' lateral 0.068 (>0.1 m/s) MV A Vmax 0.60 (0.4-1.3 m/s) LV E/e LAT 8.75 (<14) MV E/A Ratio 0.98 MV E/E' medial 12.08 MV E/E' lateral 8.76 Aortic Valve LVOT Area 3.02 cm2 AoV Area Vmax 1.71 cm2 LVOT Vmax 0.93 m/s AoV Area/ BSA (Vmax) 1.12 cm2/m2 LVOT Mean [place]. 0.69 m/s CORA Mean [place]. 1.81 cm2 LVOT Peak Grad 3.4 mmHg CORA Mean [place]. Index 1.19 cm2/m2 LVOT Mean Grad 2.1 mmHg LVOT VTI 0.197 m LVOT Diam s 1.95 cm (M/F) 1.5-2.5 AoV Vmax 1.63 (0.5-1.3 m/s) AoV Mean [place]. 1.15 m/s AoV Peak Grad 10.6 mmHg LVOT SV 59.38 mL AoV Mean Grad 5.7 (<5 mmHg) AoV VTI 0.277 (0.18-0.25 m) AoV Area VTI 2.14 (2.5-4.5 cm2) AoV Area/ BSA (VTI) 1.40 cm/m2 Mitral Valve MV DT 256 (160-240 msec) MV PHT 74 msec MV Area PHT 2.96 cm2 MV VTI 0.101 m MV Area VTI 5.86 (4.0-6.0 cm2) Pulmonary Valve PV Vmax 0.94 (0.5-1.5 m/s) RVOT Peak Gr. 2.35 mmHg PV Peak Grad 3.5 mmHg RVOT Mean Gr. 1.15 mmHg PV Mean Grad 2.4 mmHg RVOT VTI 0.142 m PV VTI 0.192 m RVOT Vmax 0.77 m/s IN ED Velocity 1.20 m/s IN ED Grad 5.7 mmHg Tricuspid Valve TR Peak Grad 39.1 mmHg TR Vmax 3.13 m/s
[2019-07-18] MEDS: Potassium Chloride 20 MEQ TABCR 40 MEQ PO (11:12)
--- NOTE | 2019-07-18 13:18 | PDOC.CMIN ---
Care Management Initial Assess REASON FOR HOSPITALIZATION:: Acute on Chronic Diastolic CHF, ZAFAR on CKD PAST MEDICAL HISTORY/PAST SURGICAL HISTORY:: Hypercalcemia (Chronic). CHF (congestive heart failure) (Chronic). Presence of permanent cardiac pacemaker (Chronic). PAF (paroxysmal atrial fibrillation) (Chronic). Hypertension (Chronic). Pulmonary hypertension (Chronic). Asthma (Chronic). CKD (chronic kidney disease) (Chronic). Chronic kidney disease (Acute). Asthma (Chronic). Atrial fibrillation (Chronic). CHF (congestive heart failure) (Chronic). COPD (chronic obstructive pulmonary disease) (Chronic). Depression (Chronic). HTN (hypertension) (Chronic). History of thoracic aortic aneurysm repair (Chronic). AICD (automatic cardioverter/defibrillator) present (Acute). H/O thoracic aortic aneurysm repair (Acute). Pacemaker (Acute) PREVIOUS FUNCTIONAL STATUS/SOCIAL/FAMILY SUPPORTS:: Antonia resides with her daughter Orly in [place], [place] she has a room on ground level and two steps into her home. Her , Adolfo resides at [facility] in [place], [place]. Antonia sees him almost daily and reports he suffers from advanced dementia and currently believes he is living on the farm he [place] up on at [age] years old. Antonia is normally independent, no DME and no services. Antonia does not drive and shares that Fran Self recommended she no longer drive though this bothers her much as she has to depend on her daughter to transport her to [place] to see her . Antonia shares that her and Adolfo spent m[place] in [place] since 1981 and traveled around in [place] prior to settling with their daughter so Adolfo could recieve termite exterminator care for his progressing illness. Antonia reports that she has two other daughters and a son whom reside in [place] all of whom are supportive. CURRENT FUNCTIONAL STATUS:: Antonia is sleeping when attempts to meet with her, assessment information gathered from prior assessment. ADVANCE DIRECTIVES:: On file; Orly as POA and HC Agent, Jodee as alternate Has patient been provided with information about the portal?: Yes Did the patient sign up for the portal?: No CODE STATUS:: DNR/DNI INSURANCE COVERAGE / FINANCIAL ISSUES:: DAMIR, SHANIQUE CURRENT HOME/COMMUNITY SERVICES/EQUIPMENT:: Currently Antonia has home health RN services 2x/week and a FWW. She has canes that she does not use in the home, and states that she has grab bars in her bathroom. PRIMARY CARE PHYSICIAN:: Fran Self POTENTIAL DISCHARGE NEEDS:: Follow up appointment with PCP. PATIENT/FAMILY EDUCATION NEEDS:: Review discharge instructions, any limitations, and ongoing DC planning discussion. Discuss Ask Me Three. ANTICIPATED BARRIERS TO DISCHARGE:: None identified. TRANSPORTATION:: Via private vehicle with her daughter Orly PLAN:: Antonia will return home with continued home health RN services. She will F/U with PCP and plan of care as prescribed. Antonia's daughter Orly to transport when ready.
--- NOTE | 2019-07-18 14:27 | W.NUTCONSULT ---
Date of service: 07/18/19 Time of Service: 14:27 Nutritional Consult ASSESSMENT: 84 year old female admitted with CHF, pruritus. Food allergies include gluten, dairy, eggs and pork. Antonia has been in facility previously and is familiar with meal options with her allergies. Following Heart Healthy Diet with adequate intake. BMI wnl for age. Not considered at nutritional risk at this time. INTERVENTION: diet free of identified food allergens MONITORING AND EVALUATION: po intake, weight, labs Time Spent in Nutritional Counseling and Treatment: 15 min spent face to face
--- NOTE | 2019-07-18 14:42 | CHAPLAIN ---
Antonia and I remembered meeting each other during a previous admission. Antonia said she had been out of her room for tests for a couple of hours this morning and missed her daughter's visit. Orly works nights so went home to sleep before work. Antonia lives with her daughter, Orly, and drives nearly everyday to visit her at [facility] in [place], [place]. Orly said she is waiting to hear back about the results from her test this morning and hasn't yet spoken with the hospitalist.
[2019-07-18] MEDS: Normal Saline Flush 10 ML SYR IVP ×2 (15:55→17:59)
--- NOTE | 2019-07-18 16:52 | PHARADMIT ---
Addendum entered by Navin Mayes III 07/20/19 14:06: Pharmacy Note Subjective BP lower today, has put HOLD on Lasix drip and parameters on BP mes Patient developed fever overnight (38.1C now), but shows no symptoms. Objective BP-103/54 K+3.3 Mag-1.8 SCr-1.57 Other Labs-WNL Assessment ECHO shows EF- 55-60% (Dyastolic dysfunction). Daughter brought in home meds Labelled for [facility] BREO Elipta, Theophyllin & Fexofenidine) Plan Follow I&Os Addendum entered by Norma Smith 07/19/19 15:06: Pharmacy Note Subjective still diuresing per morning report Objective VS-okay K+4.7(was 2.9 this morning) SCr-1.75(down) Assessment/plan -potassium replacement given -pt's own dapsone ordered for suspected bullous pemphigoid (has been checked by pharmacy and sent up for pt. use) -continue to watch for improvement in renal function/restart of apixaban once Crcl over 25 mL/min -lasix drip continues, watch i/os and weight Original Note: Admission Pharmacy Clinical Review ACUTE on Chrnic Diastolic CHF, ZAFAR on CKD Code Status DNR/DNI Current Weight Wgt- 54.8 kg Renally Cleared and Narrow Therapeutic Index Meds CrCl~ 14.1 mL/min Meds-OK QTc Value / Action Taken none current BP Control, Fever BP-116/67 Tmax- 36.7C Electrolytes reviewed Na-136 K+3.1 Mag-2.1 DVT Prophylaxis Heparin sc Opiate Usage / Scheduled Bowel Regimen Ordered No Yes Plt/SCr for Heparin / Enoxaparin Plts- 309 SCr-2.17 INR for Warfarin na H/H stable, WBC/Bands H&H- 11.3/36.5 WBC- 10.30 Antibiotic appropriateness none Cultures and Sensitivities Dcjtz-S-omst Surgical ABX d/c within 24 hr na DM control / Insulin Dosing BG-84 Heart Failure (Check EF%) (YOBANY's, B-Block, Diuretics) Lasix, Catapres, Hydralazine, Imdur, Lopressor IV to PO Switch No Home Meds Reviewed Yes Home Meds Not Ordered Losartan, Metolazone Comments [facility] Meds -waiting to be brought in.
[2019-07-18] MEDS: Heparin 5,000 UNITS/ML VIAL 5000 UNITS SC (18:18)
--- NOTE | 2019-07-18 19:08 | W.PM.PROGNOT ---
Date of Service Date of service: 07/18/19 Time of Service: 17:45 Assessment and Plan Assessment and plan (1) Acute on chronic diastolic CHF (congestive heart failure), NYHA class 1: Status: Acute Assessment and plan: Resume lasix gtt, monitoring I/O's and daily weights. I held her hydralazine/put holding parameters on the remainder of the antihypetensives as I think diuresis should get priority right now. MOnitor I/O's, daily weights. Cr is actually better with diuresis. Echo with EF 55-60%, diastolic dysfunction, RVSP 39 mmHg. (2) Pulmonary hypertension: Status: Chronic Assessment and plan: As above - diurese, carefully monitoring pulmonary status and renal function. (3) Acute kidney injury superimposed on chronic kidney disease: Status: Resolved Assessment and plan: Cr better with diuresis. Renal US negative. Check TSH. Check renal US. (4) Generalized pruritus: Status: Acute Assessment and plan: Has a h/o bullous pemphigoid and some of the features are suggestive of recurrence. Calamine lotion, as well as lac-hytrin and triamcinolone appear to be effective, but I will speak with Dr Colindres in regards to how to proceed. (5) PAF (paroxysmal atrial fibrillation): Status: Chronic Assessment and plan: Patient's kidney function is too poor for anticoagulation with eliquis - on hold at this time. Otherwise, continue outpatient therapy. (6) DVT prophylaxis: Status: Acute Assessment and plan: SC heparin. (7) Discharge planning issues: Status: Acute Assessment and plan: DNR/DNI Subjective Subjective Interval history since last seen: Ms Win states she needs to be diuresed more. Lasix gtt had been on hold since last night. C/o shortness of breath, itching. Denies dizziness, chest pain, nausea. Exam Narrative Exam Narrative: General: very pleasant elderly female, A&Ox3, sitting comfortably in a chair HEENT: EOMI, MMM Cardiovascular: Irregularly irregular rhythm Lungs: worsening rales at bilateral bases Gastrointestinal: soft, nontender, nondistended Genitourinary: has a weaver - clear light yellow urine Extremities: +1 BLE edema, unchanged; excoriations throughout; trace pedal pulses. Objective Objective Clinical Data: Abnormal lab results 07/18/19 07/18/19 Range/Units 07:26 07:26 RBC 3.96 L (4.00-5.20) m/cumm Hgb 11.3 L (12.0-15.5) g/dL MCHC 31.0 L (32.0-36.0) g/dL Potassium 3.1 L (3.5-5.1) mmol/L Chloride 94 L (98-107) mmol/L Carbon Dioxide 32.5 H (21.0-32.0) mmol/L BUN 79 H (7-18) mg/dL Creatinine 2.17 H (0.55-1.02) mg/dL TSH 4.80 H (0.36-3.74) uIU/mL Vital Signs Temperature 36.7 C 07/18/19 15:30 Temperature Source Skin 07/18/19 15:30 Pulse 63 07/18/19 15:30 Pulse Rhythm Regular 07/18/19 15:25 Respiratory Rate 18 07/18/19 15:30 Respiratory Effort Non-Labored 07/18/19 15:25 Respiratory Depth Normal 07/18/19 15:25 Respiratory Pattern Normal 07/18/19 15:25 Blood Pressure 116/67 07/18/19 15:30 Pulse Oximetry 96 07/18/19 15:30 Oxygen Delivery Method Room Air 07/18/19 15:30 Oxygen Flow Rate 0 07/18/19 15:30 Pain Level 0 07/18/19 15:30 Comment 07/18/19 11:10 Intake & Output 07/17/19 07/18/19 07/18/19 23:59 11:59 23:59 Intake Total 850.333 / 850.333 240 / 480 240 / 480 Output Total 1350 / 1920 500 / 875 375 / 875 Balance -499.667 / -1069.667 -260 / -395 -135 / -395 Weight 54.8 kg Intake: IV 60.333 / 60.333 0 / 0 Oral 790 / 790 240 / 480 240 / 480 Output: Urine 1350 / 1920 500 / 875 375 / 875 Other: Urine Color Pale Pale Yellow Yellow Yellow Urine Appearance Clear Clear Clear Laboratory Results WBC 10.30 k/cumm (4.4-10.8) 07/18/19 07:26 RBC 3.96 m/cumm (4.00-5.20) L 02/19/20 07:26 Hgb 11.3 g/dL (12.0-15.5) L 07/18/19 07:26 Hct 36.5 % (36.0-46.0) 07/18/19 07:26 MCV 92.2 fL (80-95) 07/18/19 07:26 MCH 28.5 pg (27.0-33.0) 07/18/19 07:26 MCHC 31.0 g/dL (32.0-36.0) L 07/18/19 07:26 RDW 14.0 % (11.7-14.6) 07/18/19 07:26 Plt Count 309 x1000/uL (130-400) 07/18/19 07:26 MPV 9.6 fL (8.0-11.0) 07/18/19 07:26 Sodium 136 mmol/L (136-145) 07/18/19 07:26 Potassium 3.1 mmol/L (3.5-5.1) L 07/18/19 07:26 Chloride 94 mmol/L (98-107) L 07/18/19 07:26 Carbon Dioxide 32.5 mmol/L (21.0-32.0) H 07/18/19 07:26 Anion Gap 9.5 mmol/L (3-11) 07/18/19 07:26 BUN 79 mg/dL (7-18) H 07/18/19 07:26 Creatinine 2.17 mg/dL (0.55-1.02) H 07/18/19 07:26 Estimated GFR/1.73 m2 21.66 (mL/min/1.73m2) 07/18/19 07:26 Glucose 84 mg/dL (74-106) 07/18/19 07:26 Calcium 10.1 mg/dL (8.5-10.1) 07/18/19 07:26 Magnesium 2.1 mg/dL (1.8-2.4) 07/18/19 07:26 Troponin I < 0.05 ng/Ml (<0.06) 07/17/19 09:00 NT-Pro-B Natriuret Pep 1780 pg/mL (<300) H 07/17/19 09:00 TSH 4.80 uIU/mL (0.36-3.74) H 07/18/19 07:26 Free T4 1.00 ng/dL (0.76-1.46) 07/18/19 07:26 Urine Color Yellow (Yellow) 07/17/19 11:15 Urine Clarity Clear (Clear) 07/17/19 11:15 Urine pH 7.0 (5-8) 07/17/19 11:15 Ur Specific [place] 1.015 (1.005-1.025) 07/17/19 11:15 Urine Protein Negative mg/dL (Negative) 07/17/19 11:15 Urine Ketones Negative mg/dL (Negative) 07/17/19 11:15 Urine Blood Negative (Negative) 07/17/19 11:15 Urine Nitrite Negative (Negative) 07/17/19 11:15 Urine Bilirubin Negative (Negative) 07/17/19 11:15 Urine Urobilinogen 0.2 EU/dL (Up TO 0.2) 07/17/19 11:15 Ur Leukocyte Esterase Negative (Negative) 07/17/19 11:15 Urine Glucose Negative mg/dL (Negative) 07/17/19 11:15
[2019-07-18] MEDS: Montelukast 10 MG TAB PO (21:17)
[2019-07-19] VITALS (8 sets, daily range): BP systolic 115–133; BP diastolic 59–65; PULSE 60–64; RESP 17–22; TEMP 36.6–37.8; O2SAT 95–98
[2019-07-19] MEDS: Heparin 5,000 UNITS/ML VIAL 5000 UNITS SC ×2 (05:17→17:50)
[2019-07-19 06:40] LABS: Abs Immature Grans 0.03 k/cumm (0.0-0.09); Absolute Basophil Count 0.03 k/cumm (0.0-0.2); Absolute Eosinophil Count 1.68 k/cumm (0.0-0.7); Absolute Lymphocyte Count 1.25 k/cumm (1.2-3.4); Absolute Monocyte Count 0.86 k/cumm (0.11-0.7); Basophils % 0.3; Eosinophils % 15.3; HCT 35.5 % (36.0-46.0); HGB 11.2 g/dL (12.0-15.5); Immature Grans % 0.3 %; Lymphocytes % 11.4; Mean Corp. HGB Concentration 31.5 g/dL (32.0-36.0); Mean Corpuscular Hemoglobin 28.6 pg (27.0-33.0); Mean Corpuscular Volume 90.8 fL (80-95); Mean Platelet Volume 9.1 fL (8.0-11.0); Monocytes % 7.8; Neutrophils % 64.9; Platelet Count 298 x1000/uL (130-400); RBC 3.91 m/cumm (4.00-5.20); RBC Distribution Width 13.8 % (11.7-14.6); White Blood Cell Count 10.99 k/cumm (4.4-10.8)
[2019-07-19 06:46] LABS: Chloride 96 mmol/L (98-107)
[2019-07-19 06:51] LABS: Absolute Neutrophil Count 7.13 k/cumm (1.2-6.7)
[2019-07-19 06:54] LABS: Anion Gap 8.9 mmol/L (3-11); BUN 73 mg/dL (7-18); CO2 30.1 mmol/L (21.0-32.0); CREATININE 1.75 mg/dL (0.55-1.02); Calcium 10.2 mg/dL (8.5-10.1); Estimated GFR 27.76 (mL/min/1.73m2); Glucose 108 mg/dL (74-106); Magnesium 1.9 mg/dL (1.8-2.4); Sodium 135 mmol/L (136-145)
[2019-07-19 06:58] LABS: Potassium 2.9 mmol/L (3.5-5.1)
[2019-07-19] MEDS: Pantoprazole 40 MG TABCR PO (08:13)
[2019-07-19] MEDS: Isosorbide Mononitrate 30 MG TABCR PO (08:13)
[2019-07-19] MEDS: Potassium Chloride 20 MEQ TABCR PO (08:13)
[2019-07-19] MEDS: Lachydrin 12% LOTION 225 GM BTL TP ×3 (08:14→19:56)
[2019-07-19] MEDS: Normal Saline Flush 10 ML SYR IVP ×2 (08:14→09:03)
[2019-07-19] MEDS: Potassium Chloride 20 MEQ TABCR 40 MEQ PO (09:02)
[2019-07-19] MEDS: POTASSIUM CHLORIDE 20 MEQ/100 ML BAG 50 MEQ IVPB (09:03)
--- NOTE | 2019-07-19 12:26 | PGE_ITS ---
Date of Service Date of service: 07/19/19 Time of Service: 12:26 Assessment and Plan Assessment and plan (1) Acute on chronic diastolic CHF (congestive heart failure), NYHA class 1: Status: Acute Assessment and plan: Slight improvement overnight. Continue lasix gtt, monitoring I/O's and daily weights. Continue to hold hydralazine. Monitor I/O's, daily weights. Cr improving with diuresis. Echo with EF 55-60%, diastolic dysfunction, RVSP 39 mmHg. (2) Pulmonary hypertension: Status: Chronic Assessment and plan: As above - diurese, carefully monitoring pulmonary status and renal function. (3) Acute kidney injury superimposed on chronic kidney disease: Status: Resolved Assessment and plan: Cr better with diuresis. Renal US negative. (4) Generalized pruritus: Status: Acute Assessment and plan: Dr Colindres agrees that this is likely bullous pem phigoid. Recommended dapsone 25 mg PO BID - daughter is bringing it in. Continue topical lotions for now as well (5) PAF (paroxysmal atrial fibrillation): Status: Chronic Assessment and plan: Patient's kidney function is too poor for anticoagulation with eliquis - on hold at this time. Otherwise, continue outpatient therapy. D/c tele. (6) DVT prophylaxis: Status: Acute Assessment and plan: SC heparin. (7) Discharge planning issues: Status: Acute Assessment and plan: DNR/DNI Subjective Subjective Interval history since last seen: Denies dizziness, chest pain, shortness of breath, nausea. Has not walked longer distances than her room. Itching is only a little bit better. Case discussed with Dr Colindres who agrees that the itching is likely due to a flare of bullous pemphigoid. He recommends treating with dapsone 25 mg PO BID. Our pharmacy does not have it in-house. Patient's daughter states there is a supply of it at home and she is bringing it over to the hospital now. Exam Narrative Exam Narrative: General: very pleasant elderly female, A&Ox3, sitting comfortably in a chair HEENT: EOMI, MMM Cardiovascular: Irregularly irregular rhythm Lungs: R basilar crackles still present; L basiler crackles improved Gastrointestinal: soft, nontender, nondistended Genitourinary: has a weaver - clear light yellow urine Extremities: trace edema BLE's, improved; excoriations throughout; trace pedal pulses. Objective Objective Clinical Data: Abnormal lab results 07/19/19 07/19/19 Range/Units 06:25 06:25 WBC 10.99 H (4.4-10.8) k/cumm RBC 3.91 L (4.00-5.20) m/cumm Hgb 11.2 L (12.0-15.5) g/dL Hct 35.5 L (36.0-46.0) % MCHC 31.5 L (32.0-36.0) g/dL Absolute Neutrophils 7.13 H (1.2-6.7) k/cumm Absolute Monocytes 0.86 H (0.11-0.7) k/cumm Absolute Eosinophils 1.68 H (0.0-0.7) k/cumm Sodium 135 L (136-145) mmol/L Potassium 2.9 L* (3.5-5.1) mmol/L Chloride 96 L (98-107) mmol/L BUN 73 H (7-18) mg/dL Creatinine 1.75 H (0.55-1.02) mg/dL Glucose 108 H (74-106) mg/dL Calcium 10.2 H (8.5-10.1) mg/dL Vital Signs Temperature 36.6 C 07/19/19 07:27 Temperature Source Tympanic 07/19/19 07:27 Pulse 62 07/19/19 07:27 Pulse Rhythm Regular 07/19/19 09:27 Respiratory Rate 17 07/19/19 07:27 Respiratory Effort Non-Labored 07/19/19 09:27 Respiratory Depth Normal 07/19/19 09:27 Respiratory Pattern Normal 07/19/19 09:27 Blood Pressure 115/59 L 07/19/19 07:27 Pulse Oximetry 97 07/19/19 07:27 Oxygen Delivery Method Room Air 07/19/19 07:27 Oxygen Flow Rate 0 07/19/19 07:27 Pain Level 0 07/19/19 07:27 Comment 07/18/19 11:10 Intake & Output 07/18/19 07/19/19 07/19/19 23:59 11:59 23:59 Intake Total 240 / 480 390 / 390 Output Total 775 / 1275 1470 / 1470 Balance -535 / -795 -1080 / -1080 Weight 54.6 kg Intake: IV 0 / 0 Oral 240 / 480 360 / 360 Output: Urine 775 / 1275 1470 / 1470 Other: Urine Color Yellow Pale Yellow Urine Appearance Clear Clear Stool Size Moderate Stool Characteristics Formed Laboratory Results WBC 10.99 k/cumm (4.4-10.8) H 07/19/19 06:25 RBC 3.91 m/cumm (4.00-5.20) L 07/19/19 06:25 Hgb 11.2 g/dL (12.0-15.5) L 07/19/19 06:25 Hct 35.5 % (36.0-46.0) L 07/19/19 06:25 MCV 90.8 fL (80-95) 07/19/19 06:25 MCH 28.6 pg (27.0-33.0) 07/19/19 06:25 MCHC 31.5 g/dL (32.0-36.0) L 07/19/19 06:25 RDW 13.8 % (11.7-14.6) 07/19/19 06:25 Plt Count 298 x1000/uL (130-400) 07/19/19 06:25 MPV 9.1 fL (8.0-11.0) 07/19/19 06:25 Immature Gran % 0.3 % 07/19/19 06:25 Neutrophils % 64.9 07/19/19 06:25 Lymphocytes % 11.4 07/19/19 06:25 Monocytes % 7.8 07/19/19 06:25 Eosinophils % 15.3 07/19/19 06:25 Basophils % 0.3 07/19/19 06:25 Absolute Neutrophils 7.13 k/cumm (1.2-6.7) H 07/19/19 06:25 Absolute Lymphocytes 1.25 k/cumm (1.2-3.4) 07/19/19 06:25 Absolute Monocytes 0.86 k/cumm (0.11-0.7) H 07/19/19 06:25 Absolute Eosinophils 1.68 k/cumm (0.0-0.7) H 07/19/19 06:25 Absolute Basophils 0.03 k/cumm (0.0-0.2) 07/19/19 06:25 Sodium 135 mmol/L (136-145) L 07/19/19 06:25 Potassium 2.9 mmol/L (3.5-5.1) L* 07/19/19 06:25 Chloride 96 mmol/L (98-107) L 07/19/19 06:25 Carbon Dioxide 30.1 mmol/L (21.0-32.0) 07/19/19 06:25 Anion Gap 8.9 mmol/L (3-11) 07/19/19 06:25 BUN 73 mg/dL (7-18) H 07/19/19 06:25 Creatinine 1.75 mg/dL (0.55-1.02) H 07/19/19 06:25 Estimated GFR/1.73 m2 27.76 (mL/min/1.73m2) 07/19/19 06:25 Glucose 108 mg/dL (74-106) H 07/19/19 06:25 Calcium 10.2 mg/dL (8.5-10.1) H 07/19/19 06:25 Magnesium 1.9 mg/dL (1.8-2.4) 07/19/19 06:25 Troponin I < 0.05 ng/Ml (<0.06) 07/17/19 09:00 NT-Pro-B Natriuret Pep 1780 pg/mL (<300) H 07/17/19 09:00 TSH 4.80 uIU/mL (0.36-3.74) H 07/18/19 07:26 Free T4 1.00 ng/dL (0.76-1.46) 07/18/19 07:26 Urine Color Yellow (Yellow) 07/17/19 11:15 Urine Clarity Clear (Clear) 07/17/19 11:15 Urine pH 7.0 (5-8) 07/17/19 11:15 Ur Specific [place] 1.015 (1.005-1.025) 07/17/19 11:15 Urine Protein Negative mg/dL (Negative) 07/17/19 11:15 Urine Ketones Negative mg/dL (Negative) 07/17/19 11:15 Urine Blood Negative (Negative) 07/17/19 11:15 Urine Nitrite Negative (Negative) 07/17/19 11:15 Urine Bilirubin Negative (Negative) 07/17/19 11:15 Urine Urobilinogen 0.2 EU/dL (Up TO 0.2) 07/17/19 11:15 Ur Leukocyte Esterase Negative (Negative) 07/17/19 11:15 Urine Glucose Negative mg/dL (Negative) 07/17/19 11:15
[2019-07-19 12:52] LABS: Potassium 4.7 mmol/L (3.5-5.1)
--- NOTE | 2019-07-19 13:53 | CMPROGNOTE_ITS ---
Care Management Progress Note S/O: Antonia was sitting up in her chair when CM met with her. She was pleasant in interaction and reported she continues to make the daily trek to see her , but remains uninterested in going into care herself. She intends on returning home where she resides with her daughter. CM continues to follow. A: 84 year old female admitted to [facility] 07/17/19 for acute on chronic diastolic CHF, ZAFAR on CKD P: Antonia continues to be closely monitored at this time. Per MD, anticipate she will remain at [facility] for a few more days. She continues to work with PT; CM will continue to follow and support increased services in home setting for Antonia if deemed appropriate.
--- NOTE | 2019-07-19 15:24 | IN_ITS ---
Date of service: 07/19/19 Time of Service: 14:04 PT Notes Visit Reasons: ACUTE ON CHRONIC DIASTOLIC CHF, ZAFAR ON CKD Physical Therapy Inpatient Initial Evaluation Date: 07/19/2019 Referring Doctor: Constanza Schultz M.D. PT Orders: PT CONSULT: Limited Ability Precautions: Fall. Standard. Activity as tolerated. Patient Profile/Admitting Diagnosis: Pt is an 84-year-old female that presented on a cardiology follow-up appointment, on 07/19/2019, with shortness of breath, peripheral edema, and itching. She was admitted for acute kidney injury superimposed on chronic kidney injury, acute on chronic diastolic chronic heart failure, generalized pruritis due to bullous pemphigoid, and pulmonary hypertension. PMHX: Medical History Hypercalcemia (Chronic) CHF (congestive heart failure) (Chronic) Presence of permanent cardiac pacemaker (Chronic) PAF (paroxysmal atrial fibrillation) (Chronic) Hypertension (Chronic) Pulmonary hypertension (Chronic) Asthma (Chronic) CKD (chronic kidney disease) (Chronic) Chronic kidney disease (Acute) Asthma (Chronic) Atrial fibrillation (Chronic) CHF (congestive heart failure) (Chronic) COPD (chronic obstructive pulmonary disease) (Chronic) Depression (Chronic) HTN (hypertension) (Chronic) Surgical History History of thoracic aortic aneurysm repair (Chronic) AICD (automatic cardioverter/defibrillator) present (Acute) H/O thoracic aortic aneurysm repair (Acute) Pacemaker (Acute) Social History/Home Situation: Pt lives at home with her daughter, Orly, in [place], [place]. Reports one step to enter the home. Bedroom in on the first floor, but goes to the second floor requiring her to ascend/descend 12 steps. Equipment Owned/DME: walker Subjective: Pt states that she walks with a walker outdoors, but does not use it inside. She is upset as she had thought she was going home today, but is now staying a few more days. Objective: General Observation: IV line in R UE. Nieves catheter in place. Mental Status: alert and oriented x 4 Pain: 0/10 pain Vital Signs: SpO2 86% on room air after ambulating and 84% after negotiating stairs. ROM: Right Upper Extremity: Shoulder Flexion WFL. Shoulder abduction WFL. Elbow flexion WFL. Wrist flexion WFL. Opening and closing of hand WFL. Left Upper Extremity: Shoulder Flexion WFL. Shoulder abduction WFL. Elbow flexion WFL. Wrist flexion WFL. Opening and closing of hand WFL. Right Lower Extremity: Hip flexion WFL. Hip abduction WFL. Knee flexion WFL. Ankle dorsiflexion WFL. Ankle plantarflexion WFL. Left Lower Extremity: Hip flexion WFL. Hip abduction WFL. Knee flexion WFL. Ankle dorsiflexion WFL. Ankle plantarflexion WFL. Strength: Right Upper Extremity: Shoulder flexors 4/5. Shoulder abductors 4+/5. Elbow flexors 4/5. Elbow extensors 4/5. Dental Office Receptionist strong. Left Upper Extremity: Shoulder flexors 4/5. Shoulder abductors 4+/5. Elbow flexors 4/5. Elbow extensors 4/5. Dental Office Receptionist strong. Right Lower Extremity: Hip flexors 4/5. Hip abductors 4/5. Knee flexors 4+/5. Knee extensors 4-/5. Ankle dorsiflexors 4/5. Ankle plantarflexors 4+/5. Left Lower Extremity: Hip flexors 4/5. Hip abductors 4/5. Knee flexors 4+/5. Knee extensors 4-/5. Ankle dorsiflexors 4/5. Ankle plantarflexors 4-/5 (c/o foot ?catching?). Sensation: Intact as to pain and pressure on bilateral lower extremities. Bed Mobility/Transfers: Sit to stand CGA Stand to sit CGA Bed to chair CGA Chair to bed CGA Gait: Pt was able to ambulate approximately 100 feet, full weight bearing, using a front-wheeled walker. CGA provided by PT with wheelchair follow by nursing. Initially pt demonstrated increased plantarflexion with toe drag on the left. Complained of left ankle pain. Reciprocal, step through gait pattern. Decreased chris. Required a seated rest break after 100 feet. SpO2 desaturated to 86% and rapidly improved to 94%. Stairs: Pt was able to ascend/descend the 4-inch steps x 9 and 6-inch steps x 6 with bilateral upper extremity support on rails. SBA provided by PT and PT student. Reciprocal gait pattern with ascending stairs and step-to gait pattern with descending. Complained of increased SOB and required a seated rest break. SpO2 dropped to 84%, and improved to 91% with rest and cues for deep breathes. Balance: Static Sitting: Normal Dynamic Sitting: Normal Static Standing: Good Dynamic Standing: Fair Special Tests: Mobility Limitations Standardized Measure [facility] 6 clicks Basic Mobility Inpatient Short Form: Raw Score: 22 CMS Score: 21% deficit Informed Consent/Education: Patient instructed in purpose of PT consult and plan of care. Assessment: Pt is an 84-year-old female that presented on a cardiology follow-up appointment, on 07/19/2019, with shortness of breath, peripheral edema, and itching. She was admitted for acute kidney injury superimposed on chronic kidney injury, acute on chronic diastolic chronic heart failure, generalized pruritis due to bullous pemphigoid, and pulmonary hypertension. Pt presented to physical therapy with impairment level findings and functional limitations as listed below. -PAC raw score of 22 with 21% deficit. She would continue to benefit from skilled physical therapy at this time. Patient presents with clinical signs and symptoms consistent with current/admitting diagnoses that have resulted to mobility limitations, gait instability, and generalized weakness as demonstrated by the following impairment level findings: 1. Decreased strength to B LE major muscle groups 2. Impaired standing balance 3. Impaired activity tolerance 4. Impaired respiratory function Impairments are contributing to the following functional limitations: 1. Dependent bed mobility skills 2. Increased dependence with transfers 3. Inability to safely ambulate without assistive device and physical assistance 4. Increase completion time for mobility ADL performance 5. Increased fall risk 6. Inability to negotiate steps alone safely [place] 33706 moderate complexity based on the following: History: Pt presented to physical therapy with impairment level findings and functional limitations as listed above. -PAC raw score of 22 with 21% deficit. Examination: Demonstrable impairment in strength, balance, and range of motion with underlying impairments and functional limitations as documented above Presentation: Evolving Decision Makin moderate complexity Goals: Goals X1 week 1. Supine-Sit independent 2. Sit-Supine independent 3. Sit-Stand independent 4. Stand-Sit independent 5. Bed-Chair independent 6. Chair-Bed independent 7. Independent gait on level surface with use of least restrictive device for at least 300 feet without report of pain nor dyspnea 8. Independent stair negotiation while holding onto bilateral rails for at least 15 steps without report of pain nor dyspnea 9. Independent with home exercise program 10. Good static and dynamic standing balance/tolerance Plan of Care/Treatment Plan: 1-2x/day, 7 days/week x 1 week. Plan of care has been reviewed with the [facility] providing the service under Physical Therapy direction. Initiate Physical Therapy intervention for strengthening, bed mobility, transfers, gait, stairs, balance training, use of assistive device. DISCHARGE RECOMMENDATIONS: Discharge to home when medically cleared with home health physical therapy for improved mobility, strengthening, balance, and a safe transition to home. TREATMENT CODE/TIME: 29475 x 25 minutes, 67024 x 11 minutes beginning at 14:18 P.M. Thank you very much for this referral. Cristian Ardon, SPT Doctor of Physical Therapy Student [facility] Supervision provided by Suma Torres PT, DPT, CLT [facility] [place], [place]
[2019-07-19] MEDS: Acetaminophen 325 MG TAB PO ×2 (15:43→21:10)
[2019-07-19] MEDS: Metoprolol 25 MG TAB PO (19:55)
[2019-07-19] MEDS: cloNIDine 0.1 MG TAB PO (19:55)
[2019-07-19] MEDS: Montelukast 10 MG TAB PO (21:11)
[2019-07-20] VITALS (7 sets, daily range): BP systolic 98–146; BP diastolic 50–79; PULSE 60–82; RESP 17–20; TEMP 37–38.1; O2SAT 94–97
[2019-07-20] MEDS: Heparin 5,000 UNITS/ML VIAL 5000 UNITS SC ×2 (06:27→18:02)
[2019-07-20 06:50] LABS: Anion Gap 11.2 mmol/L (3-11); BUN 58 mg/dL (7-18); CO2 29.8 mmol/L (21.0-32.0); CREATININE 1.57 mg/dL (0.55-1.02); Calcium 10.6 mg/dL (8.5-10.1); Chloride 95 mmol/L (98-107); Estimated GFR 31.46 (mL/min/1.73m2); Glucose 108 mg/dL (74-106); Magnesium 1.8 mg/dL (1.8-2.4); Potassium 3.3 mmol/L (3.5-5.1); Sodium 136 mmol/L (136-145)
[2019-07-20] MEDS: Pantoprazole 40 MG TABCR PO (07:37)
[2019-07-20] MEDS: Isosorbide Mononitrate 30 MG TABCR PO (08:34)
[2019-07-20] MEDS: Metoprolol 25 MG TAB PO (08:34)
[2019-07-20] MEDS: cloNIDine 0.1 MG TAB PO (08:34)
[2019-07-20] MEDS: Potassium Chloride 20 MEQ TABCR PO (08:34)
--- NOTE | 2019-07-20 09:20 | PDOC.CMPRO ---
Care Management Progress Note S/O: Antonia was sitting up in her chair when CM met with her. She remains pleasant in interaction. She intends on returning home where she resides with her daughter, anticipate new VNA orders upon discharge. CM continues to follow. A: 84 year old female admitted to [facility] 07/17/19 for acute on chronic diastolic CHF, ZAFAR on CKD P: Antonia continues to be closely monitored at this time. Anticipate she will discharge home with new VNA orders for RN/PT/OT when ready per MD. She will transport via private vehicle with her daughter. CM continues to follow.
--- NOTE | 2019-07-20 10:49 | PTTR_ITS ---
Date of service: 07/20/19 Time of Service: 10:49 PT Notes Visit Reasons: ACUTE ON CHRONIC DIASTOLIC CHF, ZAFAR ON CKD 07/20/2019 SUBJECTIVE: Antonia stating that she is cold. She does not feel well and is very tired. OBJECTIVE: Pt is agreeable to PT treatment. RT is present during treatment. TRANSFERS Sit to stand: CGA Stand to sit: CGA GAIT Device: FWW Weight bearing: Full Assist: CGA Distance: 50' Deviation: Fatigued VITALS: Rest: 63b/m. 93% on RA. During ambulation 90% Sa02, HR dropped to 39 b/m. Post ambulation 63 b/m 94%. Nursing aware of HR drop. ASSESSMENT: Pt extremely fatigued this morning and not feeling well. Pt tolerated less distance ambulation today compared to yesterday. We will re- assess this afternoon. PLAN: Continue per POC. Treatment time: 530 Loraine Finn, PRODUCT MANUFACTURING PROFESSIONAL
--- NOTE | 2019-07-20 11:17 | W.PM.PROGNOT ---
Date of Service Date of service: 07/20/19 Time of Service: 11:17 Assessment and Plan Assessment and plan (1) Acute on chronic diastolic CHF (congestive heart failure), NYHA class 1: Status: Acute Assessment and plan: weight unchanged. BP on the lower side today, so will hold lasix gtt; patient has holding parameters on remainder of BP meds. Continue monitoring I/O's and daily weights. Continue to hold hydralazine. Monitor I/O's, daily weights. Cr improving with diuresis. Echo with EF 55-60%, diastolic dysfunction, RVSP 39 mmHg. (2) Fever: Status: Acute Assessment and plan: New. R/o flu, PNA, UTI. Obtain CXR. (3) Pulmonary hypertension: Status: Chronic Assessment and plan: As above - diurese, carefully monitoring pulmonary status and renal function. (4) Acute kidney injury superimposed on chronic kidney disease: Status: Resolved Assessment and plan: Cr better with diuresis. Renal US negative. (5) Generalized pruritus: Status: Acute Assessment and plan: Dr Colindres agrees that this is likely bullous pemphigoid. Continue dapsone 25 mg PO BID. Continue topical lotions for now as well (6) PAF (paroxysmal atrial fibrillation): Status: Chronic Assessment and plan: I do not believe that the patient truly had HR in the 30's - the patient had no evidence of uncuptured beats on tele previously or on the EKG now. I feel bradycardia was due to poor contact of the ear probe for pulse ox. Will not resume tele. Patient's kidney function is too poor for anticoagulation with eliquis - on hold at this time. Otherwise, continue outpatient therapy. (7) DVT prophylaxis: Status: Acute Assessment and plan: SC heparin. (8) Discharge planning issues: Status: Acute Assessment and plan: DNR/DNI Subjective Subjective Interval history since last seen: Informed by RT that the patient started to feel weak while walking. At the same time, her pulse ox was being measured, and the pulse was registered to have gone down to 30s. The patient is s/p pacer but off of tele. When I came to examine her, her HR is 61. She denies dizziness, endorses headache, neck pain, denies chest pain, endorses shortness of breath. She is febrile to 38.1. Denies runny nose, sore throat, sick contacts. States she is less itchy today. SBP 101 when I saw the patient. She received all her am blood pressure meds. Exam Narrative Exam Narrative: General: very pleasant elderly female, A&Ox3, looks weaker than yesterday HEENT: EOMI, MMM Cardiovascular: Seemingly regular rate and rhythm, HR about 60 Lungs: R basilar crackles still present; L basiler crackles improved Gastrointestinal: soft, nontender, nondistended Genitourinary: has a weaver - clear light yellow urine Extremities: worsening edema BLE's, improved; excoriations throughout; trace pedal pulses. Objective Objective Clinical Data: Abnormal lab results 07/20/19 Range/Units 06:20 Potassium 3.3 L D (3.5-5.1) mmol/L Chloride 95 L (98-107) mmol/L Anion Gap 11.2 H (3-11) mmol/L BUN 58 H D (7-18) mg/dL Creatinine 1.57 H (0.55-1.02) mg/dL Glucose 108 H (74-106) mg/dL Calcium 10.6 H (8.5-10.1) mg/dL Vital Signs Temperature 38.1 C H 07/20/19 07:50 Temperature Source Tympanic 07/20/19 07:50 Pulse 64 07/20/19 07:50 Pulse Rhythm Regular 07/20/19 07:40 Respiratory Rate 18 07/20/19 07:50 Respiratory Effort Non-Labored 07/20/19 07:40 Respiratory Depth Normal 07/20/19 07:40 Respiratory Pattern Normal 07/20/19 07:40 Blood Pressure 146/79 H 07/20/19 07:50 Pulse Oximetry 97 07/20/19 07:50 Oxygen Delivery Method Room Air 07/20/19 07:50 Oxygen Flow Rate 0 07/20/19 07:50 Pain Level 0 07/20/19 07:50 Comment 07/19/19 15:37 Intake & Output 07/19/19 07/19/19 07/20/19 11:59 23:59 11:59 Intake Total 390 / 1208.750 818.750 / 8814.130 5488 / 1020 Output Total 1470 / 2410 940 / 2410 1350 / 1350 Balance -1080 / -1201.250 -121.250 / -1201.250 -330 / -330 Weight 54.6 kg 54.4 kg Intake: IV 30 / 248.750 218.750 / 248.750 Oral 360 / 960 600 / 960 1020 / 1020 Output: Urine 1470 / 2410 940 / 2410 1350 / 1350 Other: Urine Color Pale Yellow Yellow Yellow Urine Appearance Clear Clear Clear Stool Size Small Stool Characteristics Formed Brown Laboratory Results WBC 10.99 k/cumm (4.4-10.8) H 07/19/19 06:25 RBC 3.91 m/cumm (4.00-5.20) L 07/19/19 06:25 Hgb 11.2 g/dL (12.0-15.5) L 07/19/19 06:25 Hct 35.5 % (36.0-46.0) L 07/19/19 06:25 MCV 90.8 fL (80-95) 07/19/19 06:25 MCH 28.6 pg (27.0-33.0) 07/19/19 06:25 MCHC 31.5 g/dL (32.0-36.0) L 07/19/19 06:25 RDW 13.8 % (11.7-14.6) 07/19/19 06:25 Plt Count 298 x1000/uL (130-400) 07/19/19 06:25 MPV 9.1 fL (8.0-11.0) 07/19/19 06:25 Immature Gran % 0.3 % 07/19/19 06:25 Neutrophils % 64.9 07/19/19 06:25 Lymphocytes % 11.4 07/19/19 06:25 Monocytes % 7.8 07/19/19 06:25 Eosinophils % 15.3 07/19/19 06:25 Basophils % 0.3 07/19/19 06:25 Absolute Neutrophils 7.13 k/cumm (1.2-6.7) H 07/19/19 06:25 Absolute Lymphocytes 1.25 k/cumm (1.2-3.4) 07/19/19 06:25 Absolute Monocytes 0.86 k/cumm (0.11-0.7) H 07/19/19 06:25 Absolute Eosinophils 1.68 k/cumm (0.0-0.7) H 07/19/19 06:25 Absolute Basophils 0.03 k/cumm (0.0-0.2) 07/19/19 06:25 Sodium 136 mmol/L (136-145) 07/20/19 06:20 Potassium 3.3 mmol/L (3.5-5.1) L D 07/20/19 06:20 Chloride 95 mmol/L (98-107) L 07/20/19 06:20 Carbon Dioxide 29.8 mmol/L (21.0-32.0) 07/20/19 06:20 Anion Gap 11.2 mmol/L (3-11) H 07/20/19 06:20 BUN 58 mg/dL (7-18) H D 07/20/19 06:20 Creatinine 1.57 mg/dL (0.55-1.02) H 07/20/19 06:20 Estimated GFR/1.73 m2 31.46 (mL/min/1.73m2) 07/20/19 06:20 Glucose 108 mg/dL (74-106) H 07/20/19 06:20 Calcium 10.6 mg/dL (8.5-10.1) H 07/20/19 06:20 Magnesium 1.8 mg/dL (1.8-2.4) 07/20/19 06:20 Troponin I < 0.05 ng/Ml (<0.06) 07/17/19 09:00 NT-Pro-B Natriuret Pep 1780 pg/mL (<300) H 07/17/19 09:00 TSH 4.80 uIU/mL (0.36-3.74) H 07/18/19 07:26 Free T4 1.00 ng/dL (0.76-1.46) 07/18/19 07:26 Urine Color Yellow (Yellow) 07/17/19 11:15 Urine Clarity Clear (Clear) 07/17/19 11:15 Urine pH 7.0 (5-8) 07/17/19 11:15 Ur Specific [place] 1.015 (1.005-1.025) 07/17/19 11:15 Urine Protein Negative mg/dL (Negative) 07/17/19 11:15 Urine Ketones Negative mg/dL (Negative) 07/17/19 11:15 Urine Blood Negative (Negative) 07/17/19 11:15 Urine Nitrite Negative (Negative) 07/17/19 11:15 Urine Bilirubin Negative (Negative) 07/17/19 11:15 Urine Urobilinogen 0.2 EU/dL (Up TO 0.2) 07/17/19 11:15 Ur Leukocyte Esterase Negative (Negative) 07/17/19 11:15 Urine Glucose Negative mg/dL (Negative) 07/17/19 11:15
[2019-07-20] MEDS: Potassium Chloride 20 MEQ TABCR 40 MEQ PO ×2 (11:41→19:45)
[2019-07-20] MEDS: Acetaminophen 325 MG TAB PO (11:42)
[2019-07-20 12:50] LABS: Lactate 1.3 mmol/L (0.6-1.4)
[2019-07-20 13:00] LABS: Abs Immature Grans 0.04 k/cumm (0.0-0.09); Absolute Basophil Count 0.04 k/cumm (0.0-0.2); Absolute Eosinophil Count 0.71 k/cumm (0.0-0.7); Absolute Lymphocyte Count 1.31 k/cumm (1.2-3.4); Absolute Monocyte Count 0.95 k/cumm (0.11-0.7); Absolute Neutrophil Count 6.38 k/cumm (1.2-6.7); Basophils % 0.4; Eosinophils % 7.5; HCT 36.8 % (36.0-46.0); HGB 11.6 g/dL (12.0-15.5); Immature Grans % 0.4 %; Lymphocytes % 13.9; Mean Corp. HGB Concentration 31.5 g/dL (32.0-36.0); Mean Corpuscular Hemoglobin 28.6 pg (27.0-33.0); Mean Corpuscular Volume 90.9 fL (80-95); Mean Platelet Volume 9.7 fL (8.0-11.0); Monocytes % 10.1; Neutrophils % 67.7; Platelet Count 276 x1000/uL (130-400); RBC 4.05 m/cumm (4.00-5.20); White Blood Cell Count 9.43 k/cumm (4.4-10.8)
[2019-07-20 13:29] LABS: Procalcitonin 0.6 ng/mL
--- NOTE | 2019-07-20 13:57 | PT.INTREAT ---
Date of service: 07/20/19 Time of Service: 13:57 PT Notes Visit Reasons: ACUTE ON CHRONIC DIASTOLIC CHF, ZAFAR ON CKD 07/20/2019 SUBJECTIVE: Pt stating she is feeling better this afternoon. She is happy she does not have the flu. OBJECTIVE: Seated in recliner. Agreeable to PT treatment. TRANSFERS Sit to stand: CGA Stand to sit: CGA GAIT Device: FWW Assist: CGA Weight bearing: Full Distance: 100'x2 Deviation: Attempt without use of walker but has LOB immediately with min A to recover. Pt decides to use the walker. THEREX: Review seated exercises with pt including LAQ and SLR. STAIRS: 3-4, 2-6 1 rail, step over pattern, CGA VITALS: 90-96% Sa02 throughout, 63-71 b/m. on RA ASSESSMENT: Mobilized much better this afternoon without SOB noted. She did attempt walking without her walker which is baseline for her at home. She immediately has LOB which requires min A for recovery. We decided it was best to continue with FWW until she felt better and demonstrates increased strength. PLAN: Continue current POC. Treatment time: 15 Loraine Finn, NAIL ASSEMBLY MACHINE OPERATOR
[2019-07-20] MEDS: Lachydrin 12% LOTION 225 GM BTL TP ×2 (15:38→19:47)
[2019-07-20 15:39] LABS: Bilirubin Negative (Negative); Blood Large (Negative); Clarity Cloudy (Clear); Glucose Negative (Negative); Ketones Negative (Negative); Leukocyte Esterase Moderate (Negative); Nitrite Negative (Negative); Specific Gravity 1.015 (1.005-1.025); Urobilinogen 0.2 EU/dL (Up TO 0.2)
[2019-07-20 15:47] LABS: Bacteria Packed HPF (Negative); C & S Indicated? C&S Done As Ordered; Crystals Negative HPF (Negative); Epithelial Cells Negative HPF (Negative); Mucus Negative (Negative); Other Cells Mod Transitional (Negative); RBC >50 HPF (0-2); WBC >50 HPF (0-5)
[2019-07-20] MEDS: Normal Saline Flush 10 ML SYR IVP (16:25)
[2019-07-20] MEDS: cefTRIAXone 1 GM/50 ML BAG IVPB (16:32)
[2019-07-20] MEDS: Montelukast 10 MG TAB PO (19:45)
[2019-07-21 03:20] VITALS: BP 147/60; PULSE 69; RESP 18; TEMP 37.2; O2SAT 94
[2019-07-21] MEDS: Heparin 5,000 UNITS/ML VIAL 5000 UNITS SC (06:34)
[2019-07-21 07:11] LABS: Abs Immature Grans 0.05 k/cumm (0.0-0.09); Absolute Basophil Count 0.04 k/cumm (0.0-0.2); Absolute Eosinophil Count 1.49 k/cumm (0.0-0.7); Absolute Lymphocyte Count 1.67 k/cumm (1.2-3.4); Absolute Monocyte Count 1.22 k/cumm (0.11-0.7); Absolute Neutrophil Count 4.84 k/cumm (1.2-6.7); Basophils % 0.4; HCT 38.9 % (36.0-46.0); HGB 12.2 g/dL (12.0-15.5); Immature Grans % 0.5 %; Lymphocytes % 17.9; Mean Corp. HGB Concentration 31.4 g/dL (32.0-36.0); Mean Corpuscular Hemoglobin 28.6 pg (27.0-33.0); Mean Corpuscular Volume 91.1 fL (80-95); Mean Platelet Volume 9.8 fL (8.0-11.0); Monocytes % 13.1; Neutrophils % 52.1; Platelet Count 280 x1000/uL (130-400); RBC 4.27 m/cumm (4.00-5.20); RBC Distribution Width 13.8 % (11.7-14.6); White Blood Cell Count 9.31 k/cumm (4.4-10.8)
[2019-07-21 07:18] LABS: Anion Gap 12.1 mmol/L (3-11); BUN 50 mg/dL (7-18); CO2 26.9 mmol/L (21.0-32.0); CREATININE 1.63 mg/dL (0.55-1.02); Calcium 10.6 mg/dL (8.5-10.1); Chloride 98 mmol/L (98-107); Estimated GFR 30.13 (mL/min/1.73m2); Glucose 104 mg/dL (74-106); Magnesium 1.9 mg/dL (1.8-2.4); Potassium 4.3 mmol/L (3.5-5.1); Sodium 137 mmol/L (136-145)
[2019-07-21 07:40] VITALS: BP 132/60; PULSE 72; RESP 17; TEMP 36.7; O2SAT 97
[2019-07-21] MEDS: Pantoprazole 40 MG TABCR PO (07:50)
[2019-07-21] MEDS: Lachydrin 12% LOTION 225 GM BTL TP ×2 (09:09→18:31)
[2019-07-21] MEDS: Potassium Chloride 20 MEQ TABCR 40 MEQ PO ×2 (09:11→20:51)
[2019-07-21] MEDS: Metoprolol 25 MG TAB PO ×2 (09:11→20:51)
[2019-07-21] MEDS: cloNIDine 0.1 MG TAB PO ×2 (09:11→20:51)
[2019-07-21] MEDS: Isosorbide Mononitrate 30 MG TABCR PO (09:11)
[2019-07-21 11:25] VITALS: BP 128/62; PULSE 70; RESP 18; TEMP 36.8; O2SAT 97
--- NOTE | 2019-07-21 12:30 | PT.INTREAT ---
Date of service: 07/21/19 Time of Service: 10:30 PT Notes Visit Reasons: ACUTE ON CHRONIC DIASTOLIC CHF, ZAFRA ON CKD Inpatient Physical Therapy Treatment Note [facility] Date: 07/21/19 PRECAUTIONS: Fall, standard, and activities as tolerated. SUBJECTIVE: Indicated she is doing fair. OBJECTIVE: PAIN: No complaints of pain offered. BED MOBILITY/TRANSFERS Up in chair with nursing Sit-stand: SBA Stand-sit: SBA GAIT Assistive Device: FWW Weight bearing: Full Assist: CGA and assist with IV pole Distance: 75ft x 1 and 100ft x 1 VITALS: at rest: O2 92% with HR of 62b/m, after ambulation to PT office 93% with HR of 77b/m and after ambulation back to room 89% with HR of 64b/m. O2 increased to 94% after 2-3 minutes of seated rest. THEREX: Performed LAQs x 10 reps each STAIRS: Up/ down 6 4 inch steps with handrails and CGA, utilizing step to gait pattern. ASSESSMENT: Tolerated today's PT session with without complaints of SOB or discomfort. PLAN: Continue with current plan of care, advancing functional activity as able to tolerate for improved ADL function. TREATMENT CODE/TIME: 71894 x 2 (30'), 10:30 to 11:00
[2019-07-21] MEDS: Acetaminophen 325 MG TAB PO (14:39)
[2019-07-21 15:33] VITALS: BP 118/64; PULSE 61; RESP 16; TEMP 36.9; O2SAT 98
[2019-07-21] MEDS: Normal Saline Flush 10 ML SYR IVP ×2 (16:23→17:25)
--- NOTE | 2019-07-21 16:34 | W.PM.PROGNOT ---
Date of Service Date of service: 07/21/19 Time of Service: 16:34 Assessment and Plan Assessment and plan (1) Acute on chronic diastolic CHF (congestive heart failure), NYHA class 1: Status: Acute Assessment and plan: No weight in the computre. Lasix gtt restarted last night - will increase as BPs can tolerate. Continue diuresis. Continue monitoring I/O's and daily weights. Continue to hold hydralazine. Cr improving with diuresis. Echo with EF 55-60%, diastolic dysfunction, RVSP 39 mmHg. (2) Pulmonary hypertension: Status: Chronic Assessment and plan: As above - diurese, carefully monitoring pulmonary status and renal function. (3) Acute kidney injury superimposed on chronic kidney disease: Status: Resolved Assessment and plan: Cr better with diuresis. Renal US negative. (4) Thrombophlebitis: Status: Acute Assessment and plan: Start warm compresses and, given a positive blood culture, add vancomycin. (5) Generalized pruritus: Status: Acute Assessment and plan: Due to a flare of bullous pemphigoid. Continue dapsone 25 mg PO BID. Continue topical lotions for now as well (6) PAF (paroxysmal atrial fibrillation): Status: Chronic Assessment and plan: S/p pacer; Discussed with pharmacy - kidney function improved to the point of being able to resume eliquis. Otherwise, continue outpatient therapy. (7) UTI (urinary tract infection): Status: Acute Assessment and plan: Due to E. Coli. Weaver changed; on ceftriaxone day 2 - await sensitivities (8) Positive blood culture: Status: Acute Assessment and plan: Contaminant vs related to thrombophlebitis. Add vancomycin (9) DVT prophylaxis: Status: Acute Assessment and plan: Resume eliquis (10) Discharge planning issues: Status: Acute Assessment and plan: DNR/DNI Likely discharge home in 48 hours Subjective Subjective Interval history since last seen: Reports an area of induration on her R wrist where she used to have an IV - it hurts. She tried putting ice on it, but then I just froze myself. States her headache has since resolved. Denies dizziness, chest pain, breathing is better. Walked with PT today without O2 (yesterday, she required it). Less itchy. Overall, feels better. 1 blood culture + for GPC in clusters. Urine C&S with E.coli. Exam Narrative Exam Narrative: General: very pleasant elderly female, A&Ox3, looks better HEENT: EOMI, MMM Cardiovascular: RRR, no m/r/g Lungs: R basilar crackles better; L basilar crackles are gone; breath sounds overall significantly improved Gastrointestinal: soft, nontender, nondistended Genitourinary: has a weaver - clear light yellow urine Extremities: Improved edema BLE's; excoriations throughout; trace pedal pulses. Thrombophlebitis R wrist Objective Objective Clinical Data: Abnormal lab results 07/21/19 07/21/19 Range/Units 06:55 06:55 MCHC 31.4 L (32.0-36.0) g/dL Absolute Monocytes 1.22 H (0.11-0.7) k/cumm Absolute Eosinophils 1.49 H (0.0-0.7) k/cumm Anion Gap 12.1 H (3-11) mmol/L BUN 50 H (7-18) mg/dL Creatinine 1.63 H (0.55-1.02) mg/dL Calcium 10.6 H (8.5-10.1) mg/dL Vital Signs Temperature 36.9 C 07/21/19 15:33 Temperature Source Tympanic 07/21/19 15:33 Pulse 61 07/21/19 15:33 Pulse Rhythm Irregular 07/21/19 07:50 Respiratory Rate 16 07/21/19 15:33 Respiratory Effort Non-Labored 07/21/19 07:50 Respiratory Depth Normal 07/21/19 07:50 Respiratory Pattern Normal 07/21/19 07:50 Blood Pressure 118/64 07/21/19 15:33 Pulse Oximetry 98 07/21/19 15:33 Oxygen Delivery Method Room Air 07/21/19 15:33 Oxygen Flow Rate 0 07/21/19 15:33 Pain Level 0 07/21/19 15:33 Comment 07/20/19 18:50 Intake & Output 07/20/19 07/21/19 07/21/19 23:59 11:59 23:59 Intake Total 244 / 1317.292 350 / 350 Output Total 875 / 2225 900 / 900 Balance -631 / -907.708 -550 / -550 Intake: IV 4 / 57.292 Oral 240 / 1260 350 / 350 Output: Urine 875 / 2225 900 / 900 Other: Urine Color Yellow Yellow Urine Appearance Clear Clear Comment UA REVEALS UTI. PER DR. RICHEY VERBAL ORDER, WEAVER CATHETER CHANGED. CLEAR LT YELLOW URINE. Laboratory Results WBC 9.31 k/cumm (4.4-10.8) 07/21/19 06:55 RBC 4.27 m/cumm (4.00-5.20) 07/21/19 06:55 Hgb 12.2 g/dL (12.0-15.5) 07/21/19 06:55 Hct 38.9 % (36.0-46.0) 07/21/19 06:55 MCV 91.1 fL (80-95) 07/21/19 06:55 MCH 28.6 pg (27.0-33.0) 07/21/19 06:55 MCHC 31.4 g/dL (32.0-36.0) L 07/21/19 06:55 RDW 13.8 % (11.7-14.6) 07/21/19 06:55 Plt Count 280 x1000/uL (130-400) 07/21/19 06:55 MPV 9.8 fL (8.0-11.0) 07/21/19 06:55 Immature Gran % 0.5 % 07/21/19 06:55 Neutrophils % 52.1 07/21/19 06:55 Lymphocytes % 17.9 07/21/19 06:55 Monocytes % 13.1 07/21/19 06:55 Eosinophils % 16.0 07/21/19 06:55 Basophils % 0.4 07/21/19 06:55 Absolute Neutrophils 4.84 k/cumm (1.2-6.7) 07/21/19 06:55 Absolute Lymphocytes 1.67 k/cumm (1.2-3.4) 07/21/19 06:55 Absolute Monocytes 1.22 k/cumm (0.11-0.7) H 07/21/19 06:55 Absolute Eosinophils 1.49 k/cumm (0.0-0.7) H 07/21/19 06:55 Absolute Basophils 0.04 k/cumm (0.0-0.2) 07/21/19 06:55 Sodium 137 mmol/L (136-145) 07/21/19 06:55 Potassium 4.3 mmol/L (3.5-5.1) D 07/21/19 06:55 Chloride 98 mmol/L (98-107) 07/21/19 06:55 Carbon Dioxide 26.9 mmol/L (21.0-32.0) 07/21/19 06:55 Anion Gap 12.1 mmol/L (3-11) H 07/21/19 06:55 BUN 50 mg/dL (7-18) H 07/21/19 06:55 Creatinine 1.63 mg/dL (0.55-1.02) H 07/21/19 06:55 Estimated GFR/1.73 m2 30.13 (mL/min/1.73m2) 07/21/19 06:55 Glucose 104 mg/dL (74-106) 07/21/19 06:55 Lactate 1.3 mmol/L (0.6-1.4) 07/20/19 12:35 Calcium 10.6 mg/dL (8.5-10.1) H 07/21/19 06:55 Magnesium 1.9 mg/dL (1.8-2.4) 07/21/19 06:55 Troponin I < 0.05 ng/Ml (<0.06) 07/17/19 09:00 NT-Pro-B Natriuret Pep 1780 pg/mL (<300) H 07/17/19 09:00 Procalcitonin 0.6 ng/mL 07/20/19 12:35 TSH 4.80 uIU/mL (0.36-3.74) H 07/18/19 07:26 Free T4 1.00 ng/dL (0.76-1.46) 07/18/19 07:26 Urine Color Yellow (Yellow) 07/20/19 15:20 Urine Clarity Cloudy (Clear) 07/20/19 15:20 Urine pH 7.0 (5-8) 07/20/19 15:20 Ur Specific [place] 1.015 (1.005-1.025) 07/20/19 15:20 Urine Protein 100 mg/dL (Negative) H 07/20/19 15:20 Urine Ketones Negative mg/dL (Negative) 07/20/19 15:20 Urine Blood Large (Negative) H 07/20/19 15:20 Urine Nitrite Negative (Negative) 07/20/19 15:20 Urine Bilirubin Negative (Negative) 07/20/19 15:20 Urine Urobilinogen 0.2 EU/dL (Up TO 0.2) 07/20/19 15:20 Ur Leukocyte Esterase Moderate (Negative) H 07/20/19 15:20 Urine RBC >50 HPF (0-2) H 07/20/19 15:20 Urine WBC >50 HPF (0-5) H 07/20/19 15:20 Ur Epithelial Cells Negative HPF (Negative) 07/20/19 15:20 Urine Crystals Negative HPF (Negative) 07/20/19 15:20 Urine Bacteria Packed HPF (Negative) 07/20/19 15:20 Urine Mucus Negative (Negative) 07/20/19 15:20 Urine Other Mod transitional (Negative) 07/20/19 15:20 Ur Culture Indicated? C&s done as ordered 07/20/19 15:20 Urine Glucose Negative mg/dL (Negative) 07/20/19 15:20
[2019-07-21] MEDS: cefTRIAXone 1 GM/50 ML BAG IVPB (17:42)
--- NOTE | 2019-07-21 18:14 | CMPROGNOTE_ITS ---
- If Service Date Differs Date of service: 07/21/19 Time of Service: 18:14 Care Management Progress Note S/O: Antonia was sitting up in her chair when CM met with her. She was pleasant and appropriate. She plans to return to her home in [place] where she lives with her daughter. She stated that she goes to see her most days. He has been in a SNF in [place], [place] for the past 3 1/2 years with dementia. Anticipate new VNA orders upon discharge. Antonia complained of pain in her wr ist at an old IV site. The area is red and indurated. Additionally she has a new positive blood culture with gram positive cocci. Vancomycin added to her antibiotic regimen. A: 84 year old female admitted to [facility] 07/17/19 for acute on chronic diastolic CHF, ZAFAR on CKD P: Antonia continues to be treated for CHF. She had blood cultures drawn and one was positive with gram positive cocci. Anticipate Antonia will discharge home with new VNA orders for RN/PT/OT when ready per MD. She will transport via private vehicle with her daughter. ALBA continues to support patient, family and discharge planning considerations.
[2019-07-21] MEDS: VANCOMYCIN 1,000 MG in Normal Saline 250 ML 166.6666 MG IVPB (18:30)
[2019-07-21 20:45] VITALS: BP 128/65; PULSE 68; RESP 18; TEMP 37.2; O2SAT 95
[2019-07-21] MEDS: Apixaban 2.5 MG TAB PO (20:51)
[2019-07-21] MEDS: Montelukast 10 MG TAB PO (21:36)
[2019-07-21 23:27] VITALS: BP 150/82; PULSE 98; RESP 18; TEMP 37; O2SAT 93
[2019-07-22 04:33] VITALS: BP 133/65; PULSE 64; RESP 18; TEMP 36.5; O2SAT 95
[2019-07-22 07:17] LABS: Abs Immature Grans 0.03 k/cumm (0.0-0.09); Absolute Basophil Count 0.04 k/cumm (0.0-0.2); Absolute Eosinophil Count 2.54 k/cumm (0.0-0.7); Absolute Lymphocyte Count 1.54 k/cumm (1.2-3.4); Absolute Monocyte Count 1.44 k/cumm (0.11-0.7); Absolute Neutrophil Count 4.93 k/cumm (1.2-6.7); Basophils % 0.4; Eosinophils % 24.1; HCT 35.9 % (36.0-46.0); HGB 11.3 g/dL (12.0-15.5); Immature Grans % 0.3 %; Lymphocytes % 14.6; Mean Corp. HGB Concentration 31.5 g/dL (32.0-36.0); Mean Corpuscular Hemoglobin 28.8 pg (27.0-33.0); Mean Corpuscular Volume 91.3 fL (80-95); Mean Platelet Volume 9.9 fL (8.0-11.0); Monocytes % 13.7; Neutrophils % 46.9; Platelet Count 293 x1000/uL (130-400); RBC 3.93 m/cumm (4.00-5.20); RBC Distribution Width 13.8 % (11.7-14.6); White Blood Cell Count 10.52 k/cumm (4.4-10.8)
[2019-07-22] MEDS: Pantoprazole 40 MG TABCR PO (07:32)
[2019-07-22] MEDS: Lachydrin 12% LOTION 225 GM BTL TP ×2 (07:34→13:50)
[2019-07-22 07:37] LABS: Anion Gap 12.1 mmol/L (3-11); BUN 53 mg/dL (7-18); CO2 24.9 mmol/L (21.0-32.0); CREATININE 1.67 mg/dL (0.55-1.02); Calcium 9.7 mg/dL (8.5-10.1); Chloride 100 mmol/L (98-107); Glucose 106 mg/dL (74-106); Potassium 3.9 mmol/L (3.5-5.1); Sodium 137 mmol/L (136-145)
[2019-07-22 07:40] LABS: Diff Comment Diff Reviewed; RBC Morphology Normal
[2019-07-22 08:00] VITALS: BP 125/75; PULSE 72; RESP 18; TEMP 36.7; O2SAT 95
[2019-07-22] MEDS: Metoprolol 25 MG TAB PO ×2 (08:32→19:46)
[2019-07-22] MEDS: Isosorbide Mononitrate 30 MG TABCR PO (08:33)
[2019-07-22] MEDS: Potassium Chloride 20 MEQ TABCR 40 MEQ PO ×2 (08:33→19:46)
[2019-07-22] MEDS: Apixaban 2.5 MG TAB PO ×2 (08:33→19:45)
[2019-07-22] MEDS: Furosemide 80 MG TAB PO ×2 (08:33→15:29)
[2019-07-22] MEDS: cloNIDine 0.1 MG TAB PO ×2 (08:33→19:45)
[2019-07-22 12:10] VITALS: BP 118/70; PULSE 62; RESP 17; TEMP 36.4; O2SAT 95
[2019-07-22] MEDS: VANCOMYCIN 500 MG in Normal Saline 100 ML 100 MG IV (12:22)
[2019-07-22] MEDS: Normal Saline Flush 10 ML SYR IVP ×2 (12:22→15:28)
--- NOTE | 2019-07-22 12:43 | PT.INTREAT ---
Date of service: 07/22/19 Time of Service: 10:00 PT Notes Visit Reasons: ACUTE ON CHRONIC DIASTOLIC CHF, ZAFAR ON CKD Inpatient Physical Therapy Treatment Note [facility] Date: 07/22/19 PRECAUTIONS: Fall,standard and activities as tolerated. Positive for cocci. SUBJECTIVE: Stated she is doing better. Right wrist is not as red and sore today. OBJECTIVE: PAIN: Right wrist is feeling better today. No reported paint complaints offered. BED MOBILITY/TRANSFERS Up in chair when I arrived to patient's room. Sit-stand: SBA Stand-sit: SBA GAIT Due to contact precautions patient donned gown and gloves for ambulation today Assistive Device: FWW Weight bearing: Full Assist: CGA Distance: 100 x 2 VITALS: On room air: rest O2 readings of 93% with HR of 65b/m, after ambulation to PT office 89% with HR of 72b/m and after ambulation back to patient's room 92% THEREX: LAQs, seated hip abduction and seated hip flexion for 10 to 15 reps each. STAIRS: Up/ down 6 4-inch and 4 6-inch steps with handrail and step to gait pattern, utilized CGA. ASSESSMENT: Did well with ambulation on flat surfaces and stairs. Indicated she does feel more stable using walker. PLAN: Continue with current plan of care with focus on increasing ambulation and strengthen for improved ADL function. TREATMENT CODE/TIME: 08677 x 2 (25'), 10:00 to 10:25
--- NOTE | 2019-07-22 15:14 | W.PM.PROGNOT ---
Date of Service Date of service: 07/22/19 Time of Service: 15:14 Assessment and Plan Assessment and plan (1) Acute on chronic diastolic CHF (congestive heart failure), NYHA class 1: Status: Acute Assessment and plan: Improving. Switched to PO lasix 80 mg PO BID today - will recheck weight tomorrow. Continue monitoring I/O's and Cr, which is stable. Continue to hold hydralazine. Echo with EF 55-60%, diastolic dysfunction, RVSP 39 mmHg. (2) Pulmonary hypertension: Status: Chronic Assessment and plan: As above - diurese, carefully monitoring pulmonary status and renal function. (3) Acute kidney injury superimposed on chronic kidney disease: Status: Resolved Assessment and plan: Cr better with diuresis. Renal US negative. (4) Thrombophlebitis: Status: Acute Assessment and plan: Significantly improved clinically. Consult general surgery - I am concerned about MRSA in the blood culture. Continue vanco/ceftriaxone, warm compresses. (5) Generalized pruritus: Status: Acute Assessment and plan: Due to a flare of bullous pemphigoid. Continue dapsone 25 mg PO BID. Continue topical lotions for now as well Will need outpatient follow up. (6) PAF (paroxysmal atrial fibrillation): Status: Chronic Assessment and plan: S/p pacer; Eliquis resumed Otherwise, continue outpatient therapy. (7) UTI (urinary tract infection): Status: Acute Assessment and plan: Due to pansensitive E. Coli. Weaver changed; on ceftriaxone day 3. D/c weaver today. (8) Positive blood culture: Status: Acute Assessment and plan: MRSA. Likely related to thrombophlebitis. Continue vancomycin. Repeat blood cultures pending. Consult general surgery (9) DVT prophylaxis: Status: Acute Assessment and plan: Continue eliquis (10) Discharge planning issues: Status: Acute Assessment and plan: DNR/DNI Likely discharge home tomorrow Subjective Subjective Interval history since last seen: States R wrist feels a lot better. Denies dizziness, chest pain, shortness of breath, nausea. Headache and itching have resolved. Blood culture (1/4 bottles) from 07/20/2019 with MRSA; repeat blood cultures are still pending. Excited to hear about most likely going home tomorrow. Exam Narrative Exam Narrative: General: very pleasant elderly female, A&Ox3, looks well, sitting in a chair HEENT: EOMI, MMM Cardiovascular: RRR, no m/r/g Lungs: R basilar crackles better; CTA on the left Gastrointestinal: soft, nontender, nondistended Genitourinary: has a weaver - clear light yellow urine Extremities: Improved edema BLE's; excoriations throughout; trace pedal pulses. Thrombophlebitis R wrist much improved Objective Objective Clinical Data: Abnormal lab results 07/22/19 07/22/19 Range/Units 06:50 06:50 RBC 3.93 L (4.00-5.20) m/cumm Hgb 11.3 L (12.0-15.5) g/dL Hct 35.9 L (36.0-46.0) % MCHC 31.5 L (32.0-36.0) g/dL Absolute Monocytes 1.44 H (0.11-0.7) k/cumm Absolute Eosinophils 2.54 H (0.0-0.7) k/cumm Anion Gap 12.1 H (3-11) mmol/L BUN 53 H (7-18) mg/dL Creatinine 1.67 H (0.55-1.02) mg/dL Vital Signs Temperature 36.4 C L 07/22/19 12:10 Temperature Source Tympanic 07/22/19 12:10 Pulse 62 07/22/19 12:10 Pulse Rhythm Irregular 07/22/19 07:40 Respiratory Rate 17 07/22/19 12:10 Respiratory Effort Non-Labored 07/22/19 07:40 Respiratory Depth Normal 07/22/19 07:40 Respiratory Pattern Normal 07/22/19 07:40 Blood Pressure 118/70 07/22/19 12:10 Pulse Oximetry 95 07/22/19 12:10 Oxygen Delivery Method Room Air 07/22/19 12:10 Oxygen Flow Rate 0 07/22/19 12:10 Pain Level 0 07/22/19 12:10 Comment 07/20/19 18:50 Intake & Output 07/21/19 07/22/19 07/22/19 23:59 11:59 23:59 Intake Total 148.709 / 498.709 951.166 / 1451.166 500 / 1451.166 Output Total 1425 / 2325 1150 / 1700 550 / 1700 Balance -1276.291 / -1826.291 -198.834 / -248.834 -50 / -248.834 Weight 55.1 kg 53.9 kg Intake: IV 148.709 / 148.709 111.166 / 111.166 Oral 840 / 1340 500 / 1340 Output: Urine 1425 / 2325 1150 / 1700 550 / 1700 Other: Urine Color Pale Pale Yellow Yellow Urine Appearance Clear Clear Clear Laboratory Results WBC 10.52 k/cumm (4.4-10.8) 07/22/19 06:50 RBC 3.93 m/cumm (4.00-5.20) L 07/22/19 06:50 Hgb 11.3 g/dL (12.0-15.5) L 07/22/19 06:50 Hct 35.9 % (36.0-46.0) L 07/22/19 06:50 MCV 91.3 fL (80-95) 07/22/19 06:50 MCH 28.8 pg (27.0-33.0) 07/22/19 06:50 MCHC 31.5 g/dL (32.0-36.0) L 07/22/19 06:50 RDW 13.8 % (11.7-14.6) 07/22/19 06:50 Plt Count 293 x1000/uL (130-400) 07/22/19 06:50 MPV 9.9 fL (8.0-11.0) 07/22/19 06:50 Immature Gran % 0.3 % 07/22/19 06:50 Neutrophils % 46.9 07/22/19 06:50 Lymphocytes % 14.6 07/22/19 06:50 Monocytes % 13.7 07/22/19 06:50 Eosinophils % 24.1 07/22/19 06:50 Basophils % 0.4 07/22/19 06:50 Absolute Neutrophils 4.93 k/cumm (1.2-6.7) 07/22/19 06:50 Absolute Lymphocytes 1.54 k/cumm (1.2-3.4) 07/22/19 06:50 Absolute Monocytes 1.44 k/cumm (0.11-0.7) H 07/22/19 06:50 Absolute Eosinophils 2.54 k/cumm (0.0-0.7) H 07/22/19 06:50 Absolute Basophils 0.04 k/cumm (0.0-0.2) 07/22/19 06:50 Differential Comment Diff reviewed 07/22/19 06:50 RBC Morphology Normal 07/22/19 06:50 Sodium 137 mmol/L (136-145) 07/22/19 06:50 Potassium 3.9 mmol/L (3.5-5.1) 07/22/19 06:50 Chloride 100 mmol/L (98-107) 07/22/19 06:50 Carbon Dioxide 24.9 mmol/L (21.0-32.0) 07/22/19 06:50 Anion Gap 12.1 mmol/L (3-11) H 07/22/19 06:50 BUN 53 mg/dL (7-18) H 07/22/19 06:50 Creatinine 1.67 mg/dL (0.55-1.02) H 07/22/19 06:50 Estimated GFR/1.73 m2 29.30 (mL/min/1.73m2) 07/22/19 06:50 Glucose 106 mg/dL (74-106) 07/22/19 06:50 Lactate 1.3 mmol/L (0.6-1.4) 07/20/19 12:35 Calcium 9.7 mg/dL (8.5-10.1) 07/22/19 06:50 Magnesium 2.0 mg/dL (1.8-2.4) 07/22/19 06:50 Troponin I < 0.05 ng/Ml (<0.06) 07/17/19 09:00 NT-Pro-B Natriuret Pep 1780 pg/mL (<300) H 07/17/19 09:00 Procalcitonin 0.6 ng/mL 07/20/19 12:35 TSH 4.80 uIU/mL (0.36-3.74) H 07/18/19 07:26 Free T4 1.00 ng/dL (0.76-1.46) 07/18/19 07:26 Urine Color Yellow (Yellow) 07/20/19 15:20 Urine Clarity Cloudy (Clear) 07/20/19 15:20 Urine pH 7.0 (5-8) 07/20/19 15:20 Ur Specific [place] 1.015 (1.005-1.025) 07/20/19 15:20 Urine Protein 100 mg/dL (Negative) H 07/20/19 15:20 Urine Ketones Negative mg/dL (Negative) 07/20/19 15:20 Urine Blood Large (Negative) H 07/20/19 15:20 Urine Nitrite Negative (Negative) 07/20/19 15:20 Urine Bilirubin Negative (Negative) 07/20/19 15:20 Urine Urobilinogen 0.2 EU/dL (Up TO 0.2) 07/20/19 15:20 Ur Leukocyte Esterase Moderate (Negative) H 07/20/19 15:20 Urine RBC >50 HPF (0-2) H 07/20/19 15:20 Urine WBC >50 HPF (0-5) H 07/20/19 15:20 Ur Epithelial Cells Negative HPF (Negative) 07/20/19 15:20 Urine Crystals Negative HPF (Negative) 07/20/19 15:20 Urine Bacteria Packed HPF (Negative) 07/20/19 15:20 Urine Mucus Negative (Negative) 07/20/19 15:20 Urine Other Mod transitional (Negative) 07/20/19 15:20 Ur Culture Indicated? C&s done as ordered 07/20/19 15:20 Urine Glucose Negative mg/dL (Negative) 07/20/19 15:20
[2019-07-22 15:40] VITALS: BP 118/63; PULSE 61; RESP 18; TEMP 36.7; O2SAT 99
[2019-07-22] MEDS: cefTRIAXone 1 GM/50 ML BAG IVPB (15:40)
--- NOTE | 2019-07-22 16:35 | W.SURGCON ---
Date of service: 07/22/19 Time of Service: 16:35 Assessment and Plan Assessment and plan (1) Thrombophlebitis: Status: Acute Assessment and plan: cont Vanco hot packs will re-eval in am cont w/ conservative care at this time (2) Positive blood culture: Status: Acute (3) Bullous pemphigoid: Status: Acute History of Present Illness Narrative: pt developed thrombophlebeitis. Blood cultures from the IV at this site did grow out MRSA. She also had a hx of bullous phemigoid and is currently in a break-out and is covered in blisters. She is on Vanco. Her RN says the redness is 50% less todday. It is still very swollen and tender. She does not appear septic. Consults Consult date: 07/22/19 Requesting physician: Constanza Schultz Review of Systems Musculoskeletal Comments: pt is covered in eschars/excoriations and small bullae- mostly on LE. the right #1 branch off of the cephalic artery going to first digit/intrinsic vein. Moderate thromobophlebitis. blood cultures from this were + for MRSA. intermediate card tender. does not extend into the finger/thumb. Severe chronic changes from OA. ROM intact. sensation intact/baseline [facility] Medical History Asthma (Chronic) Asthma (Chronic) Atrial fibrillation (Chronic) Bullous pemphigoid (Acute) CHF (congestive heart failure) (Chronic) CHF (congestive heart failure) (Chronic) Chronic kidney disease (Acute) CKD (chronic kidney disease) (Chronic) COPD (chronic obstructive pulmonary disease) (Chronic) Depression (Chronic) HTN (hypertension) (Chronic) Hypercalcemia (Chronic) Hypertension (Chronic) PAF (paroxysmal atrial fibrillation) (Chronic) Presence of permanent cardiac pacemaker (Chronic) Pulmonary hypertension (Chronic) Surgical History AICD (automatic cardioverter/defibrillator) present (Acute) H/O thoracic aortic aneurysm repair (Acute) History of thoracic aortic aneurysm repair (Chronic) Pacemaker (Acute) Social History Smoking/Tobacco Use Status: Never Alcohol Intake: never Substance use type: does not use Do you feel safe at home: Yes Do you feel safe in your relationship?: Yes Exam Extrem Right upper extremity: hand (edema/redness/swelling. tender, but not excrutiating. ) Other: other joints show chronic signs of OA. 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 minimal edema pt is seated. moves upper ext w/ out any problems Results Last Vital Signs Temp 36.7 C 07/22/19 15:40 Pulse 61 07/22/19 15:40 Resp 18 07/22/19 15:40 BP 118/63 07/22/19 15:40 Pulse Ox 99 07/22/19 15:40 Labs Result diagrams: 07/22/19 06:50 07/22/19 06:50 Labs: Laboratory Results - last 24 hr 07/22/19 07/22/19 06:50 06:50 WBC 10.52 RBC 3.93 L Hgb 11.3 L Hct 35.9 L MCV 91.3 MCH 28.8 MCHC 31.5 L RDW 13.8 Plt Count 293 MPV 9.9 Immature Gran % 0.3 Neutrophils % 46.9 Lymphocytes % 14.6 Monocytes % 13.7 Eosinophils % 24.1 Basophils % 0.4 Absolute Neutrophils 4.93 Absolute Lymphocytes 1.54 Absolute Monocytes 1.44 H Absolute Eosinophils 2.54 H Absolute Basophils 0.04 Differential Comment Diff reviewed RBC Morphology Normal Sodium 137 Potassium 3.9 Chloride 100 Carbon Dioxide 24.9 Anion Gap 12.1 H BUN 53 H Creatinine 1.67 H Estimated GFR/1.73 m2 29.30 Glucose 106 Calcium 9.7 Magnesium 2.0
--- NOTE | 2019-07-22 16:54 | CMPROGNOTE_ITS ---
- If Service Date Differs Date of service: 07/22/19 Time of Service: 16:54 Care Management Progress Note S/O: Antonia was sitting up in her chair when CM met with her. She was pleasant and engaged readily in conversation. Antonia shared that she is disappointed that she needs to remain in the hospital for a longer period of time. She had hoped to be discharged this weekend, but with MRSA bacteremia, she requires a course of IV antibiotics. Antonia shared a lot of information about her children today. She had a son who 4 years ago and spoke at length about him and the difficulties his shaikh lifestyle posed. He was estranged from the entire family from the age of 18 until about 6 months before his . She also spoke about her other 4 children and the fact that they are not all close with each other or with her. She lives with her middle daughter Orly and Antonia indicated that that may be contributing to the situation. She stated that Orly is very supportive and is the only one of her children who has gone above and beyond to help her and her . On a happier note, Antonia also shared the details of her travels across the [place] with her in a mobile home, which they did for about 20 years. A: 84 year old female admitted to [facility] 07/17/19 for acute on chronic diastolic CHF, ZAFAR on CKD P: Antonia continues to be treated for CHF. She had blood cultures drawn and one was positive with MRSA, so she is now on contact precautions and IV antibiotics that include Ceftriaxone and now Vancomycin. Anticipate Antonia will discharge home with new VNA orders for RN/PT/OT when ready per MD. She will transport via private vehicle with her daughter. ALBA continues to support patient, family and discharge planning considerations.
[2019-07-22 19:30] VITALS: BP 136/67; PULSE 72; RESP 17; TEMP 37.1; O2SAT 97
[2019-07-22] MEDS: Montelukast 10 MG TAB PO (21:35)
[2019-07-22 23:20] VITALS: BP 117/67; PULSE 68; RESP 17; TEMP 37.2; O2SAT 95
[2019-07-23 03:54] VITALS: BP 122/74; PULSE 63; RESP 17; TEMP 36.5; O2SAT 95
[2019-07-23] MEDS: VANCOMYCIN 500 MG in Normal Saline 100 ML 100 MG IV (05:51)
[2019-07-23] MEDS: Normal Saline Flush 10 ML SYR IVP ×2 (05:51→16:41)
[2019-07-23] MEDS: Pantoprazole 40 MG TABCR PO (06:41)
[2019-07-23 07:02] LABS: Abs Immature Grans 0.03 k/cumm (0.0-0.09); Absolute Basophil Count 0.03 k/cumm (0.0-0.2); Absolute Eosinophil Count 2.79 k/cumm (0.0-0.7); Absolute Lymphocyte Count 1.42 k/cumm (1.2-3.4); Absolute Monocyte Count 1.12 k/cumm (0.11-0.7); Absolute Neutrophil Count 4.61 k/cumm (1.2-6.7); Basophils % 0.3; Eosinophils % 27.9; HCT 36.8 % (36.0-46.0); HGB 11.6 g/dL (12.0-15.5); Immature Grans % 0.3 %; Lymphocytes % 14.2; Mean Corp. HGB Concentration 31.5 g/dL (32.0-36.0); Mean Corpuscular Hemoglobin 28.7 pg (27.0-33.0); Mean Corpuscular Volume 91.1 fL (80-95); Mean Platelet Volume 9.7 fL (8.0-11.0); Monocytes % 11.2; Neutrophils % 46.1; Platelet Count 288 x1000/uL (130-400); RBC 4.04 m/cumm (4.00-5.20); RBC Distribution Width 13.7 % (11.7-14.6)
[2019-07-23 07:25] LABS: Anion Gap 10.8 mmol/L (3-11); BUN 48 mg/dL (7-18); CO2 25.2 mmol/L (21.0-32.0); CREATININE 1.57 mg/dL (0.55-1.02); Calcium 10.7 mg/dL (8.5-10.1); Chloride 98 mmol/L (98-107); Estimated GFR 31.46 (mL/min/1.73m2); Glucose 97 mg/dL (74-106); Potassium 4.3 mmol/L (3.5-5.1); Sodium 134 mmol/L (136-145)
[2019-07-23 07:34] LABS: Diff Comment Agrees w/ Instrument; RBC Morphology Normal
[2019-07-23 07:36] LABS: Ferritin 93 ng/mL (8-252)
[2019-07-23 08:00] LABS: C-Reactive Protein 3.31 mg/dL (0.0-0.3)
[2019-07-23] MEDS: Isosorbide Mononitrate 30 MG TABCR PO (08:21)
[2019-07-23] MEDS: Potassium Chloride 20 MEQ TABCR 40 MEQ PO ×2 (08:21→19:44)
[2019-07-23] MEDS: Metoprolol 25 MG TAB PO ×2 (08:22→19:45)
[2019-07-23] MEDS: Apixaban 2.5 MG TAB PO ×2 (08:22→19:45)
[2019-07-23] MEDS: cloNIDine 0.1 MG TAB PO ×2 (08:22→19:45)
[2019-07-23] MEDS: Furosemide 80 MG TAB PO ×2 (08:22→16:41)
[2019-07-23 08:30] VITALS: BP 135/74; PULSE 65; RESP 17; TEMP 37; O2SAT 99
--- NOTE | 2019-07-23 11:10 | PTTR_ITS ---
Date of service: 07/23/19 Time of Service: 11:10 PT Notes Visit Reasons: ACUTE ON CHRONIC DIASTOLIC CHF, ZAFAR ON CKD Inpatient Physical Therapy Treatment Note [facility] Date: 07/23/2019 PRECAUTIONS: Contact. Fall. Activity as tolerated. SUBJECTIVE: Pt reports that yesterday afternoon she noticed blisters on her legs and feet. Per nursing, the pt is on contact precautions due to MRSA in her blood. OBJECTIVE: IV line in LUE. PAIN: 0/10 BED MOBILITY/TRANSFERS Sit-stand: supervision Stand-sit: supervision Bed-Chair: SBA Chair-bed: SBA THEREX: Standing hip flexion x 1 minute Standing heel raises B x 10 Seated toe raises B x10 Seated clamshells B x 10 ASSESSMENT: Pt demonstrates good endurance with standing hip flexion x 10 minute as she was able to talk throughout and did not become short of breath. She was able to tolerate lower extremity strengthening interventions, but did complain of soreness in her feet with standing exercises. Did not leave the pt?s room during her treatment session due to contact precautions. She would continue to benefit from skilled physical therapy at this time for 1x/day. PLAN: Continue with established POC. Reduce pt to be seen once per day. TREATMENT CODE/TIME: 32466 x 25 minutes beginning at 11:10 A.M. Cristian Ardon, SPT Doctor of Physical Therapy Student [facility] Supervision provided by Suma Torres PT, DPT, CLT [facility] [place], [place]
--- NOTE | 2019-07-23 11:52 | W.PM.PROGNOT ---
Date of Service Date of service: 07/23/19 Time of Service: 11:52 Assessment and Plan Assessment and plan (1) Bullous pemphigoid: Status: Acute (2) Thrombophlebitis: Status: Resolved Assessment and plan: +MRSA and in blood cult. cont to treat w/ vanc. does not need outpt abx for vessel. treatment for MRSA bactremia per hosp. hot packs supportive care/medical managment. 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 Redness resolved. Still hard from clot Exam Extrem Other: no redness. still mild swelling. vessel is still firm/no fever/chills . no drainage Objective Objective Clinical Data: Abnormal lab results 07/23/19 07/23/19 07/23/19 Range/Units 06:50 06:50 06:50 Hgb 11.6 L (12.0-15.5) g/dL MCHC 31.5 L (32.0-36.0) g/dL Absolute Monocytes 1.12 H (0.11-0.7) k/cumm Absolute Eosinophils 2.79 H (0.0-0.7) k/cumm Sodium 134 L (136-145) mmol/L BUN 48 H (7-18) mg/dL Creatinine 1.57 H (0.55-1.02) mg/dL Calcium 10.7 H (8.5-10.1) mg/dL C-Reactive Protein 3.31 H (0.0-0.3) mg/dL Vital Signs Temperature 37.0 C 07/23/19 08:30 Temperature Source Tympanic 07/23/19 08:30 Pulse 65 07/23/19 08:30 Pulse Rhythm Regular 07/23/19 10:05 Respiratory Rate 17 07/23/19 08:30 Respiratory Effort Non-Labored 07/23/19 10:05 Respiratory Depth Normal 07/23/19 10:05 Respiratory Pattern Normal 07/23/19 10:05 Blood Pressure 135/74 07/23/19 08:30 Pulse Oximetry 99 07/23/19 08:30 Oxygen Delivery Method Room Air 07/23/19 08:30 Oxygen Flow Rate 0 07/23/19 08:30 Pain Level 0 07/23/19 08:30 Comment 07/20/19 18:50 Intake & Output 07/22/19 07/22/19 07/23/19 11:59 23:59 11:59 Intake Total 951.166 / 2391.166 1440 / 2391.166 690 / 690 Output Total 1150 / 2700 1550 / 2700 1050 / 1050 Balance -198.834 / -308.834 -110 / -308.834 -360 / -360 Weight 53.9 kg 53.6 kg Intake: IV 111.166 / 211.166 100 / 211.166 Oral 840 / 2180 1340 / 2180 690 / 690 Output: Urine 1150 / 2700 1550 / 2700 1050 / 1050 Other: Urine Color Pale Yellow Yellow Yellow Urine Appearance Clear Clear Clear Urine Odor Normal None Comment per pt she had to void so badly she could not hold it and took herself to the bathroom Voiding Methods Toilet Toilet Laboratory Results WBC 10.00 k/cumm (4.4-10.8) 07/23/19 06:50 RBC 4.04 m/cumm (4.00-5.20) 07/23/19 06:50 Hgb 11.6 g/dL (12.0-15.5) L 07/23/19 06:50 Hct 36.8 % (36.0-46.0) 07/23/19 06:50 MCV 91.1 fL (80-95) 07/23/19 06:50 MCH 28.7 pg (27.0-33.0) 07/23/19 06:50 MCHC 31.5 g/dL (32.0-36.0) L 07/23/19 06:50 RDW 13.7 % (11.7-14.6) 07/23/19 06:50 Plt Count 288 x1000/uL (130-400) 07/23/19 06:50 MPV 9.7 fL (8.0-11.0) 07/23/19 06:50 Immature Gran % 0.3 % 07/23/19 06:50 Neutrophils % 46.1 07/23/19 06:50 Lymphocytes % 14.2 07/23/19 06:50 Monocytes % 11.2 07/23/19 06:50 Eosinophils % 27.9 07/23/19 06:50 Basophils % 0.3 07/23/19 06:50 Absolute Neutrophils 4.61 k/cumm (1.2-6.7) 07/23/19 06:50 Absolute Lymphocytes 1.42 k/cumm (1.2-3.4) 07/23/19 06:50 Absolute Monocytes 1.12 k/cumm (0.11-0.7) H 07/23/19 06:50 Absolute Eosinophils 2.79 k/cumm (0.0-0.7) H 07/23/19 06:50 Absolute Basophils 0.03 k/cumm (0.0-0.2) 07/23/19 06:50 Differential Comment Agrees w/ instrument 07/23/19 06:50 RBC Morphology Normal 07/23/19 06:50 Sodium 134 mmol/L (136-145) L 07/23/19 06:50 Potassium 4.3 mmol/L (3.5-5.1) 07/23/19 06:50 Chloride 98 mmol/L (98-107) 07/23/19 06:50 Carbon Dioxide 25.2 mmol/L (21.0-32.0) 07/23/19 06:50 Anion Gap 10.8 mmol/L (3-11) 07/23/19 06:50 BUN 48 mg/dL (7-18) H 07/23/19 06:50 Creatinine 1.57 mg/dL (0.55-1.02) H 07/23/19 06:50 Estimated GFR/1.73 m2 31.46 (mL/min/1.73m2) 07/23/19 06:50 Glucose 97 mg/dL (74-106) 07/23/19 06:50 Lactate 1.3 mmol/L (0.6-1.4) 07/20/19 12:35 Calcium 10.7 mg/dL (8.5-10.1) H 07/23/19 06:50 Magnesium 2.0 mg/dL (1.8-2.4) 07/23/19 06:50 Ferritin 93 ng/mL (8-252) 07/23/19 06:50 Troponin I < 0.05 ng/Ml (<0.06) 07/17/19 09:00 C-Reactive Protein 3.31 mg/dL (0.0-0.3) H 07/23/19 06:50 NT-Pro-B Natriuret Pep 1780 pg/mL (<300) H 07/17/19 09:00 Procalcitonin 0.6 ng/mL 07/20/19 12:35 TSH 4.80 uIU/mL (0.36-3.74) H 07/18/19 07:26 Free T4 1.00 ng/dL (0.76-1.46) 07/18/19 07:26 Urine Color Yellow (Yellow) 07/20/19 15:20 Urine Clarity Cloudy (Clear) 07/20/19 15:20 Urine pH 7.0 (5-8) 07/20/19 15:20 Ur Specific [place] 1.015 (1.005-1.025) 07/20/19 15:20 Urine Protein 100 mg/dL (Negative) H 07/20/19 15:20 Urine Ketones Negative mg/dL (Negative) 07/20/19 15:20 Urine Blood Large (Negative) H 07/20/19 15:20 Urine Nitrite Negative (Negative) 07/20/19 15:20 Urine Bilirubin Negative (Negative) 07/20/19 15:20 Urine Urobilinogen 0.2 EU/dL (Up TO 0.2) 07/20/19 15:20 Ur Leukocyte Esterase Moderate (Negative) H 07/20/19 15:20 Urine RBC >50 HPF (0-2) H 07/20/19 15:20 Urine WBC >50 HPF (0-5) H 07/20/19 15:20 Ur Epithelial Cells Negative HPF (Negative) 07/20/19 15:20 Urine Crystals Negative HPF (Negative) 07/20/19 15:20 Urine Bacteria Packed HPF (Negative) 07/20/19 15:20 Urine Mucus Negative (Negative) 07/20/19 15:20 Urine Other Mod transitional (Negative) 07/20/19 15:20 Ur Culture Indicated? C&s done as ordered 07/20/19 15:20 Urine Glucose Negative mg/dL (Negative) 07/20/19 15:20
[2019-07-23 12:15] VITALS: BP 100/62; PULSE 58; RESP 18; TEMP 36.7; O2SAT 99
--- NOTE | 2019-07-23 13:40 | PTTR_ITS ---
Date of service: 07/23/19 Time of Service: 13:40 PT Notes Visit Reasons: ACUTE ON CHRONIC DIASTOLIC CHF, ZAFAR ON CKD Inpatient Physical Therapy Treatment Note [facility] Date: 07/23/2019 PRECAUTIONS: Contact precautions. Fall. Activity as tolerated. SUBJECTIVE: Pt reports that she is not experiencing any pain from her sores. She says that she is going home tomorrow. OBJECTIVE: Seated in bedside chair. IV lines discharged. Multiple blisters on B B LE. PAIN:0/10 VITALS: SpO2 98% on room air. Ranged from 83-97% with activity. BED MOBILITY/TRANSFERS Sit-stand: supervision Stand-sit: supervision Bed-Chair: SBA Chair-bed: SBA THERAPEUTIC ACTIVITIES: Step ups to metal stool in patient?s room x 25. Demonstrates increased respiratory rate with initial desaturation of SpO2 to 83% when performing task quickly. SpO2 remained between 90% and 97% when pacing herself ASSESSMENT: Pt was able to tolerate step ups to simulate the 20 steps in her home to the second floor. She desaturated to 83% when performing the task quickly, but after discussing pacing she was able to maintain her oxygen between 90-97% on room air. Pt verbalized the importance of pacing and notes that she takes her time using the stairs at home. She would continue to benefit from skilled physical therapy at this time. PLAN: Continue with established POC. TREATMENT CODE/TIME: 34439 x 25 minutes beginning at 13:40 P.M. Cristian Ardon, SPT Doctor of Physical Therapy Student [employer] Supervision provided by Suma Torres PT, DPT, CLT [facility] [place], [place]
--- NOTE | 2019-07-23 14:08 | W.PM.PROGNOT ---
Date of Service Date of service: 07/23/19 Time of Service: 14:09 Assessment and Plan Assessment and plan (1) Acute on chronic diastolic CHF (congestive heart failure), NYHA class 1: Status: Acute Assessment and plan: Improving. Currently on p.o. Lasix 80 mg twice daily. hydralazine remains on hold due to soft blood pressures running in the low 100s systolic Echo with EF 55-60%, diastolic dysfunction, RVSP 39 mmHg. (2) Pulmonary hypertension: Status: Chronic Assessment and plan: As above - diurese, carefully monitoring pulmonary status and renal function. (3) Acute kidney injury superimposed on chronic kidney disease: Status: Resolved Assessment and plan: Improving. BUN down to 48 creatinine 1.57. This is down from a peak creatinine of 2.68. She currently appears to be at her baseline. Renal ultrasound showed no hydronephrosis. She has small bilateral kidneys measuring 7.5 cm and the right 8.3 cm on the left. She has symmetric blood flow to both kidneys. (4) Thrombophlebitis: Status: Acute Assessment and plan: Continues to improve clinically. Repeat blood cultures from July 21, 2019 showed no growth. Question is whether the MRSA is a skin contaminant or human resources hr representative of bacteremia. She has no fever no leukocytosis although her CRP remains elevated at 3.31. However this may be secondary to her UTI. For now continue vancomycin until I have a chance to discuss her case with infectious disease.. Since I saw the patient I have spoken w/ I.D. from [facility], Dr. Au who recommended that the patient be treated w/ parenteral anti-staphyllococcal antibiotics for 4 weeks given her hx of PPM and transient MRSA bacteremia. She recommended Daptomycin at 8 mg/kg daily for 4 weeks to cover MRSA. I have spoken w/ Alyssa, county director welfare for med/surg about placement of midline. Since repeat blood cultures have been negative we can safely place a midline and then arrange for outpatient home antibiotic infusion or she can follow up through outpatient infusin center either at [facility] or [facility]. (5) Generalized pruritus: Status: Acute Assessment and plan: Due to a flare of bullous pemphigoid. Continue dapsone 25 mg PO BID. Continue topical lotions for now as well Will need outpatient follow up. (6) PAF (paroxysmal atrial fibrillation): Status: Chronic Assessment and plan: S/p pacer; Eliquis resumed Otherwise, continue outpatient therapy. (7) UTI (urinary tract infection): Status: Acute Assessment and plan: Due to pansensitive E. Coli., on ceftriaxone day 4. Nieves was discontinued yesterday. (8) Positive blood culture: Status: Acute Assessment and plan: MRSA. Likely related to thrombophlebitis. Will dc Vancomycin in favor of Daptomycin as this is a once a day antibiotic regimen that can be completed at home. (9) DVT prophylaxis: Status: Acute Assessment and plan: Continue eliquis (10) Discharge planning issues: Status: Acute Assessment and plan: DNR/DNI Possible discharge home tomorrow once she has had her midline placed and she has been started on her first dose of daptomycin in the hospital. Subjective Subjective Patient reports: feels better Interval history since last seen: Overall patient is feeling better. She denies any dyspnea cough. No chest pain. Her superficial thrombophlebitis of her right forearm from her prior IV catheter is improved. Just a small amount of serous drainage from the site. She is keeping it covered with a bandage. She denies any fever or chills. Blood cultures from July 20, 2019 demonstrated 1 out of 2 cultures positive for MRSA. Nevertheless subsequent blood cultures the following day from July 21, 2019 showed no growth. However urine culture did grow pansensitive E. coli. She is currently being treated with ceftriaxone and vancomycin for the UTI and the MRSA. Is not clear that the MRSA from the 1 blood culture is a true infection this may be a skin contaminant. Nevertheless given that she has a permanent pacemaker she was covered with vancomycin pending the results of her repeat blood cultures. I put a call out to Dr. Espinoza through the infectious disease service at [facility] to discuss her case to see if it would be safe to put her on an oral antibiotic versus continued parenteral anti-staphylococcal antibiotics. Patient would like to return home soon as possible possibly tomorrow. I told her this is depending on infectious disease recommendation regarding an oral antibiotic versus continued IV antibiotics for the MRSA bacteremia versus skin contamination Exam Narrative Exam Narrative: Elderly female who is alert and oriented person place time circumstance sitting up in her chair reading. Lungs are clear to auscultation on the left side but on the right base are some fine rales. No wheezes or rhonchi. Heart is regular no appreciable S3 or S4 gallop no murmur Right forearm has a superficial skin ulceration at the site of a prior IV placement. There is a small amount of serous drainage. There is no palpable induration and the erythema has diminished to just a pink area about the size of a dime. Objective Objective Clinical Data: Abnormal lab results 07/23/19 07/23/19 07/23/19 Range/Units 06:50 06:50 06:50 Hgb 11.6 L (12.0-15.5) g/dL MCHC 31.5 L (32.0-36.0) g/dL Absolute Monocytes 1.12 H (0.11-0.7) k/cumm Absolute Eosinophils 2.79 H (0.0-0.7) k/cumm Sodium 134 L (136-145) mmol/L BUN 48 H (7-18) mg/dL Creatinine 1.57 H (0.55-1.02) mg/dL Calcium 10.7 H (8.5-10.1) mg/dL C-Reactive Protein 3.31 H (0.0-0.3) mg/dL Vital Signs Temperature 36.7 C 07/23/19 12:15 Temperature Source Tympanic 07/23/19 12:15 Pulse 58 L 07/23/19 12:15 Pulse Rhythm Regular 07/23/19 10:05 Respiratory Rate 18 07/23/19 12:15 Respiratory Effort Non-Labored 07/23/19 10:05 Respiratory Depth Normal 07/23/19 10:05 Respiratory Pattern Normal 07/23/19 10:05 Blood Pressure 100/62 07/23/19 12:15 Pulse Oximetry 99 07/23/19 12:15 Oxygen Delivery Method Room Air 07/23/19 12:15 Oxygen Flow Rate 0 07/23/19 12:15 Pain Level 0 07/23/19 12:15 Comment 07/20/19 18:50 Intake & Output 07/22/19 07/23/19 07/23/19 23:59 11:59 23:59 Intake Total 1440 / 2391.166 690 / 930 240 / 930 Output Total 1550 / 2700 1050 / 1050 Balance -110 / -308.834 -360 / -120 240 / -120 Weight 53.6 kg Intake: IV 100 / 211.166 Oral 1340 / 2180 690 / 930 240 / 930 Output: Urine 1550 / 2700 1050 / 1050 Other: Urine Color Yellow Yellow Urine Appearance Clear Clear Urine Odor Normal None Comment per pt she had to void so badly she could not hold it and took herself to the bathroom Voiding Methods Toilet Toilet Laboratory Results WBC 10.00 k/cumm (4.4-10.8) 07/23/19 06:50 RBC 4.04 m/cumm (4.00-5.20) 07/23/19 06:50 Hgb 11.6 g/dL (12.0-15.5) L 07/23/19 06:50 Hct 36.8 % (36.0-46.0) 07/23/19 06:50 MCV 91.1 fL (80-95) 07/23/19 06:50 MCH 28.7 pg (27.0-33.0) 07/23/19 06:50 MCHC 31.5 g/dL (32.0-36.0) L 07/23/19 06:50 RDW 13.7 % (11.7-14.6) 07/23/19 06:50 Plt Count 288 x1000/uL (130-400) 07/23/19 06:50 MPV 9.7 fL (8.0-11.0) 07/23/19 06:50 Immature Gran % 0.3 % 07/23/19 06:50 Neutrophils % 46.1 07/23/19 06:50 Lymphocytes % 14.2 07/23/19 06:50 Monocytes % 11.2 07/23/19 06:50 Eosinophils % 27.9 07/23/19 06:50 Basophils % 0.3 07/23/19 06:50 Absolute Neutrophils 4.61 k/cumm (1.2-6.7) 07/23/19 06:50 Absolute Lymphocytes 1.42 k/cumm (1.2-3.4) 07/23/19 06:50 Absolute Monocytes 1.12 k/cumm (0.11-0.7) H 07/23/19 06:50 Absolute Eosinophils 2.79 k/cumm (0.0-0.7) H 07/23/19 06:50 Absolute Basophils 0.03 k/cumm (0.0-0.2) 07/23/19 06:50 Differential Comment Agrees w/ instrument 07/23/19 06:50 RBC Morphology Normal 07/23/19 06:50 Sodium 134 mmol/L (136-145) L 07/23/19 06:50 Potassium 4.3 mmol/L (3.5-5.1) 07/23/19 06:50 Chloride 98 mmol/L (98-107) 07/23/19 06:50 Carbon Dioxide 25.2 mmol/L (21.0-32.0) 07/23/19 06:50 Anion Gap 10.8 mmol/L (3-11) 07/23/19 06:50 BUN 48 mg/dL (7-18) H 07/23/19 06:50 Creatinine 1.57 mg/dL (0.55-1.02) H 07/23/19 06:50 Estimated GFR/1.73 m2 31.46 (mL/min/1.73m2) 07/23/19 06:50 Glucose 97 mg/dL (74-106) 07/23/19 06:50 Lactate 1.3 mmol/L (0.6-1.4) 07/20/19 12:35 Calcium 10.7 mg/dL (8.5-10.1) H 07/23/19 06:50 Magnesium 2.0 mg/dL (1.8-2.4) 07/23/19 06:50 Ferritin 93 ng/mL (8-252) 07/23/19 06:50 Troponin I < 0.05 ng/Ml (<0.06) 07/17/19 09:00 C-Reactive Protein 3.31 mg/dL (0.0-0.3) H 07/23/19 06:50 NT-Pro-B Natriuret Pep 1780 pg/mL (<300) H 07/17/19 09:00 Procalcitonin 0.6 ng/mL 07/20/19 12:35 TSH 4.80 uIU/mL (0.36-3.74) H 07/18/19 07:26 Free T4 1.00 ng/dL (0.76-1.46) 07/18/19 07:26 Urine Color Yellow (Yellow) 07/20/19 15:20 Urine Clarity Cloudy (Clear) 07/20/19 15:20 Urine pH 7.0 (5-8) 07/20/19 15:20 Ur Specific [place] 1.015 (1.005-1.025) 07/20/19 15:20 Urine Protein 100 mg/dL (Negative) H 07/20/19 15:20 Urine Ketones Negative mg/dL (Negative) 07/20/19 15:20 Urine Blood Large (Negative) H 07/20/19 15:20 Urine Nitrite Negative (Negative) 07/20/19 15:20 Urine Bilirubin Negative (Negative) 07/20/19 15:20 Urine Urobilinogen 0.2 EU/dL (Up TO 0.2) 07/20/19 15:20 Ur Leukocyte Esterase Moderate (Negative) H 07/20/19 15:20 Urine RBC >50 HPF (0-2) H 07/20/19 15:20 Urine WBC >50 HPF (0-5) H 07/20/19 15:20 Ur Epithelial Cells Negative HPF (Negative) 07/20/19 15:20 Urine Crystals Negative HPF (Negative) 07/20/19 15:20 Urine Bacteria Packed HPF (Negative) 07/20/19 15:20 Urine Mucus Negative (Negative) 07/20/19 15:20 Urine Other Mod transitional (Negative) 07/20/19 15:20 Ur Culture Indicated? C&s done as ordered 07/20/19 15:20 Urine Glucose Negative mg/dL (Negative) 07/20/19 15:20
--- NOTE | 2019-07-23 14:46 | CMPROGNOTE_ITS ---
- If Service Date Differs Date of service: 07/23/19 Time of Service: 14:46 Care Management Progress Note S/O: Antonia was sitting up in her chair when CM met with her. She states she is not ready for discharged today she reports that she is concerned about several blisters on her arms, legs and feet. She feels that it would be better to be discharged on Tuesday if she is medically ready. Antonia remains acute at this time, she continues on IV abx. A: 84 year old female admitted to [facility] 07/17/19 for acute on chronic diastolic CHF, ZAFAR on CKD P: Antonia will be discharged home when medically ready. She will transport via private vehicle with her daughter. CM to continue assessment for additional home supports and coordination prior to discharge.
[2019-07-23 16:40] VITALS: BP 138/66; PULSE 64; RESP 17; TEMP 36.8; O2SAT 96
[2019-07-23] MEDS: cefTRIAXone 1 GM/50 ML BAG IVPB (16:41)
[2019-07-23] MEDS: Lachydrin 12% LOTION 225 GM BTL TP (19:45)
[2019-07-23] MEDS: Montelukast 10 MG TAB PO (21:36)
[2019-07-23 23:25] VITALS: BP 113/65; PULSE 67; RESP 17; TEMP 36.5; O2SAT 94
[2019-07-24] MEDS: VANCOMYCIN 500 MG in Normal Saline 100 ML 100 MG IV (00:42)
[2019-07-24 03:37] VITALS: BP 130/65; PULSE 62; RESP 18; TEMP 37.5; O2SAT 97
--- NOTE | 2019-07-24 08:35 | PGE_ITS ---
Date of Service Date of service: 07/24/19 Time of Service: 07:45 Assessment and Plan Assessment and plan (1) Thrombophlebitis: Status: Acute Assessment and plan: A\\ 84 year old with thromobophlebitis which is resolving P\\ NO surgical intervention needed We will sign off for now. Please let us know if you need us to see patient again Subjective Subjective Interval history since last seen: Doing well. Patient wants to go home. No pain in her wrist Exam Extrem Other: Right Wrist- Thrombus in vein palpated. NTTP. NO erythema Objective Objective Clinical Data: Vital Signs Temperature 99.5 F 07/24/19 03:37 Temperature Source Tympanic 07/24/19 03:37 Pulse 62 07/24/19 03:37 Pulse Rhythm Irregular 07/24/19 04:50 Respiratory Rate 18 07/24/19 03:37 Respiratory Effort Non-Labored 07/24/19 04:50 Respiratory Depth Normal 07/24/19 04:50 Respiratory Pattern Normal 07/24/19 04:50 Blood Pressure 130/65 07/24/19 03:37 Pulse Oximetry 97 07/24/19 03:37 Oxygen Delivery Method Room Air 07/24/19 03:37 Oxygen Flow Rate 0 07/24/19 03:37 Pain Level 0 07/23/19 23:25 Comment 07/20/19 18:50 Intake & Output 07/23/19 07/23/19 07/24/19 11:59 23:59 11:59 Intake Total 790 / 1580 790 / 1580 Output Total 1050 / 1050 Balance -260 / 530 790 / 530 Weight 118 lb 2.684 oz Intake: IV 100 / 100 Oral 690 / 1480 790 / 1480 Output: Urine 1050 / 1050 Other: Urine Color Yellow Yellow Yellow Urine Appearance Clear Clear Clear Urine Odor None None None Comment No hat to measure. Stool Size Moderate Stool Characteristics Soft Formed Voiding Methods Toilet Toilet Toilet Laboratory Results WBC 10.00 k/cumm (4.4-10.8) 07/23/19 06:50 RBC 4.04 m/cumm (4.00-5.20) 07/23/19 06:50 Hgb 11.6 g/dL (12.0-15.5) L 07/23/19 06:50 Hct 36.8 % (36.0-46.0) 07/23/19 06:50 MCV 91.1 fL (80-95) 07/23/19 06:50 MCH 28.7 pg (27.0-33.0) 07/23/19 06:50 MCHC 31.5 g/dL (32.0-36.0) L 07/23/19 06:50 RDW 13.7 % (11.7-14.6) 07/23/19 06:50 Plt Count 288 x1000/uL (130-400) 07/23/19 06:50 MPV 9.7 fL (8.0-11.0) 07/23/19 06:50 Immature Gran % 0.3 % 07/23/19 06:50 Neutrophils % 46.1 07/23/19 06:50 Lymphocytes % 14.2 07/23/19 06:50 Monocytes % 11.2 07/23/19 06:50 Eosinophils % 27.9 07/23/19 06:50 Basophils % 0.3 07/23/19 06:50 Absolute Neutrophils 4.61 k/cumm (1.2-6.7) 07/23/19 06:50 Absolute Lymphocytes 1.42 k/cumm (1.2-3.4) 07/23/19 06:50 Absolute Monocytes 1.12 k/cumm (0.11-0.7) H 07/23/19 06:50 Absolute Eosinophils 2.79 k/cumm (0.0-0.7) H 07/23/19 06:50 Absolute Basophils 0.03 k/cumm (0.0-0.2) 07/23/19 06:50 Differential Comment Agrees w/ instrument 07/23/19 06:50 RBC Morphology Normal 07/23/19 06:50 Sodium 134 mmol/L (136-145) L 07/23/19 06:50 Potassium 4.3 mmol/L (3.5-5.1) 07/23/19 06:50 Chloride 98 mmol/L (98-107) 07/23/19 06:50 Carbon Dioxide 25.2 mmol/L (21.0-32.0) 07/23/19 06:50 Anion Gap 10.8 mmol/L (3-11) 07/23/19 06:50 BUN 48 mg/dL (7-18) H 07/23/19 06:50 Creatinine 1.57 mg/dL (0.55-1.02) H 07/23/19 06:50 Estimated GFR/1.73 m2 31.46 (mL/min/1.73m2) 07/23/19 06:50 Glucose 97 mg/dL (74-106) 07/23/19 06:50 Lactate 1.3 mmol/L (0.6-1.4) 07/20/19 12:35 Calcium 10.7 mg/dL (8.5-10.1) H 07/23/19 06:50 Magnesium 2.0 mg/dL (1.8-2.4) 07/23/19 06:50 Ferritin 93 ng/mL (8-252) 07/23/19 06:50 Troponin I < 0.05 ng/Ml (<0.06) 07/17/19 09:00 C-Reactive Protein 3.31 mg/dL (0.0-0.3) H 07/23/19 06:50 NT-Pro-B Natriuret Pep 1780 pg/mL (<300) H 07/17/19 09:00 Procalcitonin 0.6 ng/mL 07/20/19 12:35 TSH 4.80 uIU/mL (0.36-3.74) H 07/18/19 07:26 Free T4 1.00 ng/dL (0.76-1.46) 07/18/19 07:26 Urine Color Yellow (Yellow) 07/20/19 15:20 Urine Clarity Cloudy (Clear) 07/20/19 15:20 Urine pH 7.0 (5-8) 07/20/19 15:20 Ur Specific [place] 1.015 (1.005-1.025) 07/20/19 15:20 Urine Protein 100 mg/dL (Negative) H 07/20/19 15:20 Urine Ketones Negative mg/dL (Negative) 07/20/19 15:20 Urine Blood Large (Negative) H 07/20/19 15:20 Urine Nitrite Negative (Negative) 07/20/19 15:20 Urine Bilirubin Negative (Negative) 07/20/19 15:20 Urine Urobilinogen 0.2 EU/dL (Up TO 0.2) 07/20/19 15:20 Ur Leukocyte Esterase Moderate (Negative) H 07/20/19 15:20 Urine RBC >50 HPF (0-2) H 07/20/19 15:20 Urine WBC >50 HPF (0-5) H 07/20/19 15:20 Ur Epithelial Cells Negative HPF (Negative) 07/20/19 15:20 Urine Crystals Negative HPF (Negative) 07/20/19 15:20 Urine Bacteria Packed HPF (Negative) 07/20/19 15:20 Urine Mucus Negative (Negative) 07/20/19 15:20 Urine Other Mod transitional (Negative) 07/20/19 15:20 Ur Culture Indicated? C&s done as ordered 07/20/19 15:20 Urine Glucose Negative mg/dL (Negative) 07/20/19 15:20
[2019-07-24 08:53] VITALS: BP 149/78; PULSE 64; RESP 18; TEMP 36.4; O2SAT 96
[2019-07-24] MEDS: DAPTOmycin 500 MG in Normal Saline 50 ML 100 MG IVPB (08:59)
[2019-07-24] MEDS: Pantoprazole 40 MG TABCR PO (09:07)
[2019-07-24] MEDS: Apixaban 2.5 MG TAB PO ×2 (09:07→21:14)
[2019-07-24] MEDS: Furosemide 80 MG TAB PO ×2 (09:07→15:36)
[2019-07-24] MEDS: cloNIDine 0.1 MG TAB PO (09:08)
[2019-07-24] MEDS: Potassium Chloride 20 MEQ TABCR 40 MEQ PO ×2 (09:08→21:14)
[2019-07-24] MEDS: Isosorbide Mononitrate 30 MG TABCR PO (09:08)
[2019-07-24] MEDS: Metoprolol 25 MG TAB PO (09:08)
--- NOTE | 2019-07-24 11:01 | PT.INNT ---
PT Notes Visit Reasons: ACUTE ON CHRONIC DIASTOLIC CHF, ZAFAR ON CKD Pt refused AM PT treatment and when asked if she would like to complete PT this afternoon she said she would be gone by the afternoon.
[2019-07-24 12:38] LABS: Anion Gap 8.9 mmol/L (3-11); BUN 40 mg/dL (7-18); CO2 28.1 mmol/L (21.0-32.0); CREATININE 1.43 mg/dL (0.55-1.02); Calcium 10.2 mg/dL (8.5-10.1); Chloride 99 mmol/L (98-107); Estimated GFR 35.04 (mL/min/1.73m2); Glucose 99 mg/dL (74-106); Potassium 4.1 mmol/L (3.5-5.1); Sodium 136 mmol/L (136-145)
--- NOTE | 2019-07-24 14:34 | PTTR_ITS ---
Date of service: 07/24/19 Time of Service: 14:35 PT Notes Visit Reasons: ACUTE ON CHRONIC DIASTOLIC CHF, ZAFAR ON CKD 07/24/2019 Refused PT services. Loraine Finn, [employer]ER
--- NOTE | 2019-07-24 15:29 | W.PM.PROGNOT ---
Date of Service Date of service: 07/24/19 Time of Service: 15:29 Assessment and Plan Assessment and plan (1) MRSA (methicillin resistant staph aureus) culture positive: Status: Acute Assessment and plan: Patient's vancomycin was discontinued and she has been started on daptomycin 500 mg IV daily. She will need a total of 28 days of therapy. Case management is working on obtaining authorization for treatment in the infusion center at [facility]. (2) Acute on chronic diastolic CHF (congestive heart failure), NYHA class 1: Status: Acute Assessment and plan: continues to improve. Weight is up slightly half a kilogram from yesterday.BUN and creatinine are stable on her current dose of Lasix. BUN is 40 g 1.43 which is her baseline.Patient denies any dyspnea or dizziness or lightheadedness.Her blood pressure is now back up in the 140s arm and resume her Losartan 25 mg daily. (3) Pulmonary hypertension: Status: Chronic Assessment and plan: As above - diurese, carefully monitoring pulmonary status and renal function. (4) Acute kidney injury superimposed on chronic kidney disease: Status: Resolved Assessment and plan: Acute kidney injury resolved she is now back to her baseline.. (5) Thrombophlebitis: Status: Acute Assessment and plan: Thrombophlebitis continues to improve. The area of her previous IV site over her right forearm is no longer tender and there is no induration and the erythema has resolved. There is a dried up scabbed area (6) PAF (paroxysmal atrial fibrillation): Status: Chronic Assessment and plan: S/p pacer; Eliquis resumed Otherwise, continue outpatient therapy. (7) UTI (urinary tract infection): Status: Acute Assessment and plan: Due to pansensitive E. Coli., on ceftriaxone day 5. weaver has been out for couple of days. I will dc her Rocephin after todays dose. Repeat UA in the a.m. Qualifiers: Urinary tract infection type: acute cystitis Hematuria presence: without hematuria Qualified Code(s): N30.00 - Acute cystitis without hematuria (8) Positive blood culture: Status: Acute Assessment and plan: MRSA. Likely related to thrombophlebitis. Will dc Vancomycin in favor of Daptomycin as this is a once a day antibiotic regimen that can be completed at home. (9) DVT prophylaxis: Status: Acute Assessment and plan: Continue eliquis (10) Discharge planning issues: Status: Acute Assessment and plan: DNR/DNI Possible discharge home tomorrow once she has had her midline placed and she has been started on her first dose of daptomycin in the hospital. Subjective Subjective Interval history since last seen: Patient continues to have fluid-filled blisters consistent with bullous pemphigoid. She is currently on dapsone along with calamine lotion. She is eager to return home. I explained to her that due to the MRSA bacteremia she will need 4 weeks of parenteral antibiotics. I switch her today from vancomycin to daptomycin. Case management has looked into her receiving home infusion from visiting nurse. Apparently her Medicaid is not currently active and therefore she is not eligible for home IV infusion. The alternative is for her to go to [facility] for outpatient infusion of daptomycin 500 mg IV daily for 4 weeks. Patient denies any shortness of breath or chest pain or palpitations. Exam Narrative Exam Narrative: Alert and oriented person place time circumstance. Lungs are clear to auscultation with the exception of right lung base has some squeaky rales. Heart is regular with a harsh grade 4/6 systolic murmur consistent with mitral vegetation. Abdomen soft and nontender. Lower extremities without peripheral cyanosis or edema. Skin exam reveals multiple fluid-filled blisters over her chest abdomen and extremities. Objective Objective Clinical Data: Abnormal lab results 07/24/19 Range/Units 12:14 BUN 40 H (7-18) mg/dL Creatinine 1.43 H (0.55-1.02) mg/dL Calcium 10.2 H (8.5-10.1) mg/dL Vital Signs Temperature 36.4 C L 07/24/19 08:53 Temperature Source Tympanic 07/24/19 08:53 Pulse 64 07/24/19 08:53 Pulse Rhythm Regular 07/24/19 13:21 Respiratory Rate 18 07/24/19 08:53 Respiratory Effort 07/24/19 13:21 Respiratory Depth Normal 07/24/19 13:21 Respiratory Pattern Normal 07/24/19 13:21 Blood Pressure 149/78 H 07/24/19 08:53 Pulse Oximetry 96 07/24/19 08:53 Oxygen Delivery Method Room Air 07/24/19 08:53 Oxygen Flow Rate 0 07/24/19 08:53 Pain Level 0 02/25/20 08:53 Comment 07/20/19 18:50 Intake & Output 07/23/19 07/24/19 07/24/19 23:59 11:59 23:59 Intake Total 790 / 1580 50 / 50 Balance 790 / 530 50 50 Weight 54.1 kg Intake: IV 50 50 Oral 790 / 1480 Other: Urine Color Yellow Yellow Urine Appearance Clear Clear Clear Urine Odor None None Comment No hat to measure. Stool Size Moderate Stool Characteristics Soft Formed Voiding Methods Toilet Toilet Laboratory Results WBC 10.00 k/cumm (4.4-10.8) 07/23/19 06:50 RBC 4.04 m/cumm (4.00-5.20) 07/23/19 06:50 Hgb 11.6 g/dL (12.0-15.5) L 07/23/19 06:50 Hct 36.8 % (36.0-46.0) 07/23/19 06:50 MCV 91.1 fL (80-95) 07/23/19 06:50 MCH 28.7 pg (27.0-33.0) 07/23/19 06:50 MCHC 31.5 g/dL (32.0-36.0) L 07/23/19 06:50 RDW 13.7 % (11.7-14.6) 07/23/19 06:50 Plt Count 288 x1000/uL (130-400) 07/23/19 06:50 MPV 9.7 fL (8.0-11.0) 07/23/19 06:50 Immature Gran % 0.3 % 07/23/19 06:50 Neutrophils % 46.1 07/23/19 06:50 Lymphocytes % 14.2 07/23/19 06:50 Monocytes % 11.2 07/23/19 06:50 Eosinophils % 27.9 07/23/19 06:50 Basophils % 0.3 07/23/19 06:50 Absolute Neutrophils 4.61 k/cumm (1.2-6.7) 07/23/19 06:50 Absolute Lymphocytes 1.42 k/cumm (1.2-3.4) 07/23/19 06:50 Absolute Monocytes 1.12 k/cumm (0.11-0.7) H 07/23/19 06:50 Absolute Eosinophils 2.79 k/cumm (0.0-0.7) H 07/23/19 06:50 Absolute Basophils 0.03 k/cumm (0.0-0.2) 07/23/19 06:50 Differential Comment Agrees w/ instrument 07/23/19 06:50 RBC Morphology Normal 07/23/19 06:50 Sodium 136 mmol/L (136-145) 07/24/19 12:14 Potassium 4.1 mmol/L (3.5-5.1) 07/24/19 12:14 Chloride 99 mmol/L (98-107) 07/24/19 12:14 Carbon Dioxide 28.1 mmol/L (21.0-32.0) 07/24/19 12:14 Anion Gap 8.9 mmol/L (3-11) 07/24/19 12:14 BUN 40 mg/dL (7-18) H 07/24/19 12:14 Creatinine 1.43 mg/dL (0.55-1.02) H 07/24/19 12:14 Estimated GFR/1.73 m2 35.04 (mL/min/1.73m2) 07/24/19 12:14 Glucose 99 mg/dL (74-106) 07/24/19 12:14 Lactate 1.3 mmol/L (0.6-1.4) 07/20/19 12:35 Calcium 10.2 mg/dL (8.5-10.1) H 07/24/19 12:14 Magnesium 2.0 mg/dL (1.8-2.4) 07/23/19 06:50 Ferritin 93 ng/mL (8-252) 07/23/19 06:50 Troponin I < 0.05 ng/Ml (<0.06) 07/17/19 09:00 C-Reactive Protein 3.31 mg/dL (0.0-0.3) H 07/23/19 06:50 NT-Pro-B Natriuret Pep 1780 pg/mL (<300) H 07/17/19 09:00 Procalcitonin 0.6 ng/mL 07/20/19 12:35 TSH 4.80 uIU/mL (0.36-3.74) H 07/18/19 07:26 Free T4 1.00 ng/dL (0.76-1.46) 07/18/19 07:26 Urine Color Yellow (Yellow) 07/20/19 15:20 Urine Clarity Cloudy (Clear) 07/20/19 15:20 Urine pH 7.0 (5-8) 07/20/19 15:20 Ur Specific [place] 1.015 (1.005-1.025) 07/20/19 15:20 Urine Protein 100 mg/dL (Negative) H 07/20/19 15:20 Urine Ketones Negative mg/dL (Negative) 07/20/19 15:20 Urine Blood Large (Negative) H 07/20/19 15:20 Urine Nitrite Negative (Negative) 07/20/19 15:20 Urine Bilirubin Negative (Negative) 07/20/19 15:20 Urine Urobilinogen 0.2 EU/dL (Up TO 0.2) 07/20/19 15:20 Ur Leukocyte Esterase Moderate (Negative) H 07/20/19 15:20 Urine RBC >50 HPF (0-2) H 07/20/19 15:20 Urine WBC >50 HPF (0-5) H 07/20/19 15:20 Ur Epithelial Cells Negative HPF (Negative) 07/20/19 15:20 Urine Crystals Negative HPF (Negative) 07/20/19 15:20 Urine Bacteria Packed HPF (Negative) 07/20/19 15:20 Urine Mucus Negative (Negative) 07/20/19 15:20 Urine Other Mod transitional (Negative) 07/20/19 15:20 Ur Culture Indicated? C&s done as ordered 07/20/19 15:20 Urine Glucose Negative mg/dL (Negative) 07/20/19 15:20
[2019-07-24] MEDS: cefTRIAXone 1 GM/50 ML BAG IVPB (15:37)
[2019-07-24 16:19] VITALS: BP 118/62; PULSE 65; RESP 17; TEMP 37; O2SAT 95
--- NOTE | 2019-07-24 16:23 | CHAPLAIN ---
Antonia was sitting wrapped up in warm blankets when I visited. She said she is likely going home tomorrow and will be having home health come in to administer IV drugs daily. She hopes this will allow her to be able to visit her , Brandon, at [facility] in [place]. She usually goes there daily. Her daughter drives her. Her daughter works at night, so sleeps sometime during the day. Antonia said [facility] is not allowing visitors right now. Antonia is worried about blisters that have appeared on her legs, feet, arm and chest.
--- NOTE | 2019-07-24 17:13 | PDOC.CMPRO ---
- If Service Date Differs Date of service: 07/24/19 Time of Service: 17:13 Care Management Progress Note S/O: Antonia is in need of 4 weeks of IV abx CM contacted [facility] she does not have Medicaid to cover part of the billing. Cost of Abx would be about 30.00 a day for 4 weeks. CM did contact [facility] and left a message for the infusion room to determine if she would be able to receive abx through their infusion room. The other options would be infusion room here at [facility] once a day or here as a SB1 which her daughter reports she does not want to do. Patient goes to see her spouse daily at [facility] however she does not want admission there. Daughter Orly works nights and would be the one providing transportation to the infusion room daily. CM left a message for Antonia's daughter to review the options. Patient does have a midline. A: 84 year old female admitted to [facility] 07/17/19 for acute on chronic diastolic CHF, ZAFAR on CKD P: Antonia will be discharged home when medically ready. She will need 4 weeks of IV abx once daily. Disposition to be determined CM is awaiting a return call from daughter who provides transportation. She will transport via private vehicle with her daughter. CM to continue assessment for additional home supports and coordination prior to discharge.
[2019-07-24 19:30] VITALS: BP 134/54; PULSE 62; RESP 18; TEMP 36.7; O2SAT 97
[2019-07-24] MEDS: Lachydrin 12% LOTION 225 GM BTL TP (20:24)
[2019-07-24 21:00] VITALS: BP 118/49; PULSE 81
[2019-07-24] MEDS: Montelukast 10 MG TAB PO (21:14)
[2019-07-24 23:45] VITALS: BP 123/65; PULSE 71; RESP 18; TEMP 37.2; O2SAT 94
[2019-07-25 08:07] VITALS: RESP 18
[2019-07-25] MEDS: cloNIDine 0.1 MG TAB PO (08:38)
[2019-07-25] MEDS: Metoprolol 25 MG TAB PO (08:38)
[2019-07-25] MEDS: Isosorbide Mononitrate 30 MG TABCR PO (08:38)
[2019-07-25] MEDS: Potassium Chloride 20 MEQ TABCR 40 MEQ PO (08:38)
[2019-07-25] MEDS: Apixaban 2.5 MG TAB PO (08:38)
[2019-07-25] MEDS: Pantoprazole 40 MG TABCR PO (08:38)
[2019-07-25] MEDS: DAPTOmycin 500 MG in Normal Saline 50 ML 100 MG IVPB (08:38)
[2019-07-25] MEDS: Furosemide 80 MG TAB PO (08:39)
[2019-07-25 09:40] VITALS: BP 142/76; PULSE 77; RESP 17; TEMP 36.5; O2SAT 96
--- NOTE | 2019-07-25 10:00 | DI.RAD_ITS ---
EXAM: XR CHEST 2V PA LATERAL INDICATION: Follow-up CHF. COMPARISON: XR CHEST 2V PA LATERAL from 10/17/2018 XR PORTABLE CHEST AP from 07/17/2019 TECHNIQUE: 2D digital imaging was performed. FINDINGS: The heart size is mildly enlarged. The aorta is tortuous and calcified. Sternal wires and pacemaker are again noted. Changes of right sided volume loss and scarring is again noted. No new infiltrate or effusion is seen. Degenerative changes and scoliosis are seen in the spine. IMPRESSION: No acute abnormality. Right-sided volume loss and small pleural and pulmonary scarring. DATA REPOSITORY: RADIATION DOSE DELIVERED:
--- NOTE | 2019-07-25 10:13 | PGE_ITS ---
Date of Service Date of service: 07/25/19 Time of Service: 10:13 Assessment and Plan Assessment and plan (1) MRSA (methicillin resistant staph aureus) culture positive: Status: Acute Assessment and plan: Day 2 of 28 days of daptomycin. End date is August 21, 2019. Awaiting insurance decision regarding outpatient coverage. Unclear as to the source of MRSA. This very well may have been secondary to the superficial thrombophlebitis in her right arm although she has bullous pemphigoid and very well may have had transient bacteremia from 1 of the skin lesions. (2) Acute on chronic diastolic CHF (congestive heart failure), NYHA class 1: Status: Acute Assessment and plan: She continues to improve clinically. I am resuming her losartan 25 mg daily. She is on Lasix 80 mg twice a day. Renal functions been stable. We are rechecking her proBNP and her chest x-ray today. Her weight is up slightly today by 0.3 kg. She is now 54.4 kg today. Her peak weight was 58.0 kg on admission. (3) Acute kidney injury superimposed on chronic kidney disease: Status: Resolved Assessment and plan: Acute kidney injury resolved she is now back to her baseline.. (4) Thrombophlebitis: Status: Acute Assessment and plan: Thrombophlebitis continues to improve. The area of her previous IV site over her right forearm is no longer tender and there is no induration and the erythema has resolved. There is a dried up scabbed area (5) PAF (paroxysmal atrial fibrillation): Status: Chronic Assessment and plan: S/p pacer; Eliquis resumed Otherwise, continue outpatient therapy. (6) UTI (urinary tract infection): Status: Acute Assessment and plan: Patient has completed 5 days of Rocephin for an uncomplicated UTI. We will discontinue her Rocephin Qualifiers: Hematuria presence: without hematuria Urinary tract infection type: acute cystitis Qualified Code(s): N30.00 - Acute cystitis without hematuria (7) Positive blood culture: Status: Acute Assessment and plan: As per plan above for MRSA (8) DVT prophylaxis: Status: Acute Assessment and plan: Continue eliquis (9) Bullous pemphigoid: Status: Acute Assessment and plan: Her bullous lesions did not seem to be clearing up with the dapsone treatment. I will discuss her treatment w/ Dr. Hammer, her test engine evaluator. (10) Discharge planning issues: Status: Acute Assessment and plan: Patient remains DNR/DNI. Discharge plans complicated by her need for 4 weeks of parenteral daptomycin treatment for MRSA bacteremia. Depending on her pair source she will either need swing bed status here at [facility] for 4 weeks or hopefully this can be covered for home infusion treatment. Subjective Subjective Interval history since last seen: Patient's only complaint is that she is eager to return home. She is currently on daptomycin 500 mg IV daily for treatment of MRSA bacteremia. This is per recommendations from infectious disease specialist at [facility]. Her discharge planning has been complicated by the fact that her [place] Medicaid lapsed. mutuel department manager is currently trying to work with the daughter to reinstate her [place] Medicaid so that we can have a pair source for her to receive her antibiotics at home which would be the best option for the patient and the patient's daughter with whom she lives with. Patient's daughter is indicated to the case loader operator that is not feasible for her to bring her mother back and forth to [facility] daily for 4 weeks for completion of antibiotic treatment. Apparently the hospital in [facility] uses the infusion center exclusively for treatment of chemotherapy patients and will not except a patient has MRSA. The patient has declined to enter into a skilled nursing in [facility] where her resides. The only other option is for the patient to enter into swing bed status here at [facility] while she completes her antibiotic treatment. In the meanwhile the patient has completed 5-day course of antibiotics for treatment for an E. coli UTI. We will discontinue her Rocephin. She still has some residual rales at the right lung base. I am to recheck her proBNP and BMP as well as her chest x-ray however clinically she seems markedly improved from CHF standpoint. She is currently on furosemide 80 mg twice a day. 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 Exam Narrative Exam Narrative: Elderly female sitting up in her chair. She is obvio usly frustrated with inability to return home today. She continues to have pruritus secondary to her bullous pemphigoid. This is being treated with calamine lotion and dapsone. Lungs are clear to auscultation anteriorly posteriorly she has rales at the right base with a high-pitched squeak. Heart is regular with a harsh grade 3/6 systolic murmur over the apex. Abdomen soft and nontender. Extremities with multiple vesicular lesions over her legs thighs as well as her arms and trunk these appear to be clear fluid-filled blisters. Objective Objective Clinical Data: Abnormal lab results 07/24/19 Range/Units 12:14 BUN 40 H (7-18) mg/dL Creatinine 1.43 H (0.55-1.02) mg/dL Calcium 10.2 H (8.5-10.1) mg/dL Vital Signs Temperature 36.5 C 07/25/19 09:40 Temperature Source Tympanic 07/25/19 09:40 Pulse 77 07/25/19 09:40 Pulse Rhythm Regular 07/25/19 04:20 Respiratory Rate 17 07/25/19 09:40 Respiratory Effort 07/25/19 08:07 Respiratory Depth Normal 07/25/19 08:07 Respiratory Pattern Normal 07/25/19 08:07 Blood Pressure 142/76 H 07/25/19 09:40 Pulse Oximetry 96 07/25/19 09:40 Oxygen Delivery Method Room Air 07/25/19 09:40 Oxygen Flow Rate 0 07/25/19 09:40 Pain Level 0 07/25/19 09:40 Comment 07/20/19 18:50 Intake & Output 07/24/19 07/24/19 07/25/19 11:59 23:59 11:59 Intake Total 50 / 700 650 / 700 10 / 10 Output Total 250 / 250 Balance -200 / 450 650 / 450 10 / 10 Weight 54.1 kg 54.4 kg Intake: IV 50 / 50 10 / 10 Oral 650 / 650 Output: Urine 250 / 250 Other: Urine Color Yellow Yellow Straw Urine Appearance Clear Clear Clear Urine Odor None Normal Comment voided in toilet keeps moving hat Voiding Methods Toilet Toilet Laboratory Results WBC 10.00 k/cumm (4.4-10.8) 07/23/19 06:50 RBC 4.04 m/cumm (4.00-5.20) 07/23/19 06:50 Hgb 11.6 g/dL (12.0-15.5) L 07/23/19 06:50 Hct 36.8 % (36.0-46.0) 07/23/19 06:50 MCV 91.1 fL (80-95) 07/23/19 06:50 MCH 28.7 pg (27.0-33.0) 07/23/19 06:50 MCHC 31.5 g/dL (32.0-36.0) L 07/23/19 06:50 RDW 13.7 % (11.7-14.6) 07/23/19 06:50 Plt Count 288 x1000/uL (130-400) 07/23/19 06:50 MPV 9.7 fL (8.0-11.0) 07/23/19 06:50 Immature Gran % 0.3 % 07/23/19 06:50 Neutrophils % 46.1 07/23/19 06:50 Lymphocytes % 14.2 07/23/19 06:50 Monocytes % 11.2 07/23/19 06:50 Eosinophils % 27.9 07/23/19 06:50 Basophils % 0.3 07/23/19 06:50 Absolute Neutrophils 4.61 k/cumm (1.2-6.7) 07/23/19 06:50 Absolute Lymphocytes 1.42 k/cumm (1.2-3.4) 07/23/19 06:50 Absolute Monocytes 1.12 k/cumm (0.11-0.7) H 07/23/19 06:50 Absolute Eosinophils 2.79 k/cumm (0.0-0.7) H 07/23/19 06:50 Absolute Basophils 0.03 k/cumm (0.0-0.2) 07/23/19 06:50 Differential Comment Agrees w/ instrument 07/23/19 06:50 RBC Morphology Normal 07/23/19 06:50 Sodium 136 mmol/L (136-145) 07/24/19 12:14 Potassium 4.1 mmol/L (3.5-5.1) 07/24/19 12:14 Chloride 99 mmol/L (98-107) 07/24/19 12:14 Carbon Dioxide 28.1 mmol/L (21.0-32.0) 07/24/19 12:14 Anion Gap 8.9 mmol/L (3-11) 07/24/19 12:14 BUN 40 mg/dL (7-18) H 07/24/19 12:14 Creatinine 1.43 mg/dL (0.55-1.02) H 07/24/19 12:14 Estimated GFR/1.73 m2 35.04 (mL/min/1.73m2) 07/24/19 12:14 Glucose 99 mg/dL (74-106) 07/24/19 12:14 Lactate 1.3 mmol/L (0.6-1.4) 07/20/19 12:35 Calcium 10.2 mg/dL (8.5-10.1) H 07/24/19 12:14 Magnesium 2.0 mg/dL (1.8-2.4) 07/23/19 06:50 Ferritin 93 ng/mL (8-252) 07/23/19 06:50 Troponin I < 0.05 ng/Ml (<0.06) 07/17/19 09:00 C-Reactive Protein 3.31 mg/dL (0.0-0.3) H 07/23/19 06:50 NT-Pro-B Natriuret Pep 1780 pg/mL (<300) H 07/17/19 09:00 Procalcitonin 0.6 ng/mL 07/20/19 12:35 TSH 4.80 uIU/mL (0.36-3.74) H 07/18/19 07:26 Free T4 1.00 ng/dL (0.76-1.46) 07/18/19 07:26 Urine Color Yellow (Yellow) 07/20/19 15:20 Urine Clarity Cloudy (Clear) 07/20/19 15:20 Urine pH 7.0 (5-8) 07/20/19 15:20 Ur Specific [place] 1.015 (1.005-1.025) 07/20/19 15:20 Urine Protein 100 mg/dL (Negative) H 07/20/19 15:20 Urine Ketones Negative mg/dL (Negative) 07/20/19 15:20 Urine Blood Large (Negative) H 07/20/19 15:20 Urine Nitrite Negative (Negative) 07/20/19 15:20 Urine Bilirubin Negative (Negative) 07/20/19 15:20 Urine Urobilinogen 0.2 EU/dL (Up TO 0.2) 07/20/19 15:20 Ur Leukocyte Esterase Moderate (Negative) H 07/20/19 15:20 Urine RBC >50 HPF (0-2) H 07/20/19 15:20 Urine WBC >50 HPF (0-5) H 07/20/19 15:20 Ur Epithelial Cells Negative HPF (Negative) 07/20/19 15:20 Urine Crystals Negative HPF (Negative) 07/20/19 15:20 Urine Bacteria Packed HPF (Negative) 07/20/19 15:20 Urine Mucus Negative (Negative) 07/20/19 15:20 Urine Other Mod transitional (Negative) 07/20/19 15:20 Ur Culture Indicated? C&s done as ordered 07/20/19 15:20 Urine Glucose Negative mg/dL (Negative) 07/20/19 15:20
--- NOTE | 2019-07-25 10:15 | PT.INTREAT ---
Date of service: 07/25/19 Time of Service: 10:15 PT Notes Visit Reasons: ACUTE ON CHRONIC DIASTOLIC CHF, ZAFAR ON CKD Inpatient Physical Therapy Treatment Note [facility] Date: 07/25/2019 PRECAUTIONS:Fall. Contact. Activity as tolerated. SUBJECTIVE: Patient states that her daughter Orly is working out insurance coverage for her outpatient antibiotic regimen as she hopes to be able to go home today. She states that her daughter can bring her top the hospital every other day and her daughter can do the antibiotic infusion every other day. She reports that the soles of her feet are sore. OBJECTIVE: Blisters continue to be visible in her B LE. PAIN: Soles of feet are sore but patient is able to tolerate short distance ambulation. BED MOBILITY/TRANSFERS Sit-stand: Supervision Stand-sit: Supervision Bed-Chair: Supervision Chair-bed: Supervision GAIT Assistive Device: FWW Weight bearing: FWB Assist: Supervision Distance: 25 feet Deviation: Reciprocal step through gait pattern. ASSESSMENT: Patient will continue to benefit from physical therapy services with a goal of progressing mobility level to independent ambulation using no assistive device in anticipation of discharged home when medically cleared. PLAN: Should patient remain in the hospital, we will plan on progressing mobility level to unassisted ambulation per prior level of function. TREATMENT CODE/TIME: 9753 0 x 15 minutes beginning at 10:15 AM.
[2019-07-25] MEDS: diphenhydrAMINE 25 MG CAP PO (11:13)
[2019-07-25] MEDS: Losartan 25 MG TAB PO (11:14)
[2019-07-25 11:42] LABS: Anion Gap 9.1 mmol/L (3-11); BUN 36 mg/dL (7-18); CO2 26.9 mmol/L (21.0-32.0); CREATININE 1.35 mg/dL (0.55-1.02); Calcium 9.8 mg/dL (8.5-10.1); Chloride 99 mmol/L (98-107); Estimated GFR 37.45 (mL/min/1.73m2); Glucose 123 mg/dL (74-106); Potassium 4.4 mmol/L (3.5-5.1); Sodium 135 mmol/L (136-145)
[2019-07-25 12:20] LABS: NT-proBNP 1163 pg/mL (<300)
--- NOTE | 2019-07-25 12:58 | CMDISCH_ITS ---
- If Service Date Differs Date of service: 07/25/19 Time of Service: 12:58 LACE Index Scoring Tool - Questions: Length of Stay (in days): 7 - 13 Acuity (Admit via E.D.?): No Comorbidities: Congestive Heart Failure, Mild Liver/Renal Disease E.D. Visits: 3 - Answers: Total Score: 13 Risk of Readmission: High Risk Care Management Discharge Reason for Hospitalization: Acute on Chronic Diastolic CHF, ZAFAR on CKD Discharge Plan: Antonia will be discharged home today with a midline and daily abx through the infusion room. Antonia is unable to have the infusions at home with her current benefits. CM reviewed plan and coordianted infusion therapy with patient and daughter. She will have 26 more days of IV abx once a day. Daughter will transport her home today via private car. Antonia is being discharged home with a midline which will be maintained by infusion servcies at [facility]. Patient/Family Education Needs: Discharge education, limitations and follow up plan of care including ask me three and self management. Services Needed at Discharge: Infusion Therapy
--- NOTE | 2019-07-25 13:16 | W.PM.DS.N ---
Date of service: 07/25/19 Time of Service: 13:16 DS: Diagnosis Discharge Diagnosis (1) MRSA (methicillin resistant staph aureus) culture positive: Status: Acute Asessment and Plan: Patient to continue daptomycin 500 mg IV daily for the next 26 days. This will be completed through the infusion center at [facility]. Weekly monitoring of BMP and CK will be performed along with CRP. (2) Acute on chronic diastolic CHF (congestive heart failure), NYHA class 1: Status: Acute Asessment and Plan: Patient will resume furosemide at a higher dose of 80 mg twice a day. A prescription for 40 mg tablets 2 tablets p.o. twice daily was sent to her pharmacy at [facility] in [facility]. Patient is to resume her losartan 25 mg daily. Hydralazine was not resumed and metolazone was not resumed. Patient will continue Lopressor 25 mg p.o. twice daily (3) Acute kidney injury superimposed on chronic kidney disease: Status: Resolved Asessment and Plan: Patient's renal function has recovered with resolution of her acute on chronic heart failure. BUN is down to 36 and creatinine is at 1.35 on discharge. Patient is to remain off her metolazone. Losartan has been restarted 25 mg daily. She will have weekly BMPs monitored while receiving IV daptomycin. (4) Thrombophlebitis: Status: Resolved Asessment and Plan: Her thrombophlebitis will be monitored by the nurses in the infusion center. Patient is to complete 28 days of antistaphylococcal treatment for MRSA bacteremia (5) PAF (paroxysmal atrial fibrillation): Status: Chronic Asessment and Plan: Patient will continue her Eliquis and her metoprolol at previous doses. (6) UTI (urinary tract infection): Status: Resolved Asessment and Plan: Patient completed a 5-day course of Rocephin and no further antibiotics are indicated at this time. 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 Colindres for further treatment of her bullous pemphigoid. For now she is to continue her current dose of dapsone (10) Discharge planning issues: Status: Resolved Discharge Plan Disposition Patient Disposition: HOME Condition: Improving Discharge Details Reason For Visit: ACUTE ON CHRONIC DIASTOLIC CHF, ZAFAR ON CKD Admit Date/Time: 07/17/19 08:44 Admit Provider: Constanza Schultz Attending Provider: Constanza Schultz Primary Care Provider: Fran Self Hospital Course Hospital Course: 84-year-old female with a history of chronic diastolic heart failure and pulmonary hypertension along with paroxysmal atrial fibrillation, sick sinus syndrome status post permanent pacemaker, and bullous pemphigoid and asthma. Presented to cardiology clinic with acute shortness of breath and bilateral leg edema and pruritus. Patient was sent as a direct admission for IV diuretics as the patient had failed increased doses of her oral diuretics as an outpatient including furosemide and metolazone. Patient was started on furosemide drip and diuresed appropriately. Her losartan was withheld because of acute renal insufficiency as well as her Eliquis. She was placed on heparin for anticoagulation. An echocardiogram was performed and showed an ejection fraction of 55 to 60% with diastolic dysfunction. Phone consultation was obtained by Dr. Schultz with the patient's show operations supervisor Dr. Colindres who recommended initiation of her dapsone 25 mg p.o. twice daily. Patient was placed on topical antipruritic lotions as well. Renal function improved with diuresis. Patient developed an E. coli cystitis which was treated with IV Rocephin x5 days. Patient's hospital course was complicated by thrombophlebitis of her right forearm secondary to IV infiltration. Blood cultures were obtained and she grew 1 out of 4 bottles positive for MRSA. She was started on vancomycin for this on July 21, 2019. She was switched to oral Lasix 80 mg twice a day beginning July 22, 2019. Because of the acute kidney injury renal ultrasound was obtained and showed no acute abnormalities. Her bullous pemphigoid was treated with dapsone [address] Angelic Jackson from general surgery was consulted regarding the thrombophlebitis. It was felt to be superficial thrombophlebitis from an IV infiltration and other than warm compresses and treating the MRSA bacteremia no surgical intervention was recommended. I assumed the patient's care July 23, 2019. We continue to monitor her BUN and creatinine. Creatinine came down from a peak of 2.68 down to 1.57. Renal ultrasound shows bilaterally small kidneys at 7.5 centimeters and 8.3 cm. She had a normal symmetric renal blood flow. The thrombophlebitis continued to improve. She completed 5-day course of Rocephin for her UTI. I discussed her case with Dr. uA from [facility] who is an infectious disease expert. She recommended a 4-week course of parenteral antistaphylococcal antibiotics given the patient's history of a permanent pacemaker and transient MRSA bacteremia. For the ease of coverage of once a day antibiotic treatment she recommended daptomycin at 8 mg/kg IV daily for 4 weeks. As the patient's repeat blood cultures showed no growth a midline was placed on July 24, 2019. Patient will need to complete 4-week course of antistaphylococcal medications. Patient will return daily to [facility] outpatient infusion center for daptomycin 500 mg IV daily. She completed 2 days of daptomycin while here in addition to her vancomycin. She will complete 26 more days of daptomycin and have weekly monitoring of her kidney function and electrolytes and CK levels. With respect to her bullous pemphigoid she will follow-up with her show operations supervisor Dr. Colindres [place] Meds and New Rx's Prescriptions: New potassium chloride [Klor-Con M20] 20 mEq Tablet,Er Particles/Crystals 40 meq PO BID Qty: 120 RF: 0 Continued sennosides [Senokot] 8.6 mg tablet 8.6 mg PO HS PRNRF: 0 albuterol sulfate [Ventolin HFA] 90 mcg/actuation HFA aerosol inhaler 2 puff IH Q4H PRNRF: 0 polyethylene glycol 3350 17 gram powder in packet 17 g PO DAILY PRNRF: 0 docusate sodium [Colace] 100 mg capsule 100 mg PO TID PRNRF: 0 clonidine HCl 0.1 MG tablet 0.1 mg PO BID RF: 0 metoprolol tartrate 25 MG tablet 25 mg PO BID RF: 0 Eliquis 2.5 MG tablet 2.5 mg PO BID RF: 0 losartan 25 mg tablet 25 mg PO DAILY RF: 0 isosorbide mononitrate 30 mg tablet extended release 24 hr 30 mg PO DAILY Qty: 90 RF: 3 fexofenadine 60 mg Tablet 60 mg PO BID RF: 0 pantoprazole 40 mg Tablet,Delayed Release (Dr/Ec) 40 mg PO DAILY RF: 0 montelukast [Singulair] 10 mg Tablet 10 mg PO QHS RF: 0 theophylline 400 mg Tablet Extended Release 24 Hr 200 mg PO DAILY RF: 0 Breo Ellipta 100-25 mcg/dose Blister With Device 1 inh Inhalation DAILY RF: 0 Discontinued potassium chloride 20 mEq tablet extended release 20 meq PO DAILY RF: 0 metolazone 2.5 mg tablet 2.5 mg PO Q OTHER DAY Qty: 30 RF: 6 furosemide 20 mg tablet 100 mg PO DAILY Qty: 180 RF: 6 hydralazine 25 mg tablet 25 mg PO TID RF: 0 Discharge Instructions Instructions: Heart Failure (DC), MRSA (Methicillin Resistant Staphylococcus Aureus) (DC) Additional Instructions: Follow-up daily at the infusion center at [facility] for infusion of antibiotics for the next 26 days. Weekly labs will be obtained to monitor your kidney function Call your show operations supervisor to follow-up for treatment of your bullous pemphigoid Stand Alone Forms: Nursing Discharge Form Referrals: Cara Doll [NURSE PRACTITIONER] - 08/02/19 12:45 pm Activity:: Activity as Tolerated Equipment/Supplies:: No Equipment Needed Diet:: Low Sodium Discharge Orders Discharge Orders: Discharge Order (Routine); Ordered 07/25/19 Ordered By: Simone Wade DS: Summary Status at Discharge Functional status at discharge: independent ambulation Overall status at discharge: patient is progressing back to baseline Mental Status: mental status grossly normal Speech and Movement: speech and movement normal Mood: congruent mood Affect: normal affect Exam Psych Mental Status: mental status grossly normal Speech and Movement: speech and movement normal Mood: congruent mood Affect: normal affect DS: Data Vitals/I&O Vitals and I&O: Vital Signs Temperature 36.5 C 07/25/19 09:40 Temperature Source Tympanic 07/25/19 09:40 Pulse 77 07/25/19 09:40 Pulse Rhythm Regular 07/25/19 04:20 Respiratory Rate 17 07/25/19 09:40 Respiratory Effort 07/25/19 08:07 Respiratory Depth Normal 07/25/19 08:07 Respiratory Pattern Normal 07/25/19 08:07 Blood Pressure 142/76 H 07/25/19 09:40 Pulse Oximetry 96 07/25/19 09:40 Oxygen Delivery Method Room Air 07/25/19 09:40 Oxygen Flow Rate 0 07/25/19 09:40 Pain Level 0 07/25/19 09:40 Comment 07/20/19 18:50 Intake & Output 07/24/19 07/25/19 07/25/19 23:59 11:59 23:59 Intake Total 650 / 700 370 / 370 Balance 650 / 450 370 / 370 Weight 54.4 kg Intake: IV Oral 650 / 650 360 / 360 Other: Urine Color Yellow Urine Appearance Clear Clear Urine Odor Normal Comment voided in toilet keeps moving hat Voiding Methods Toilet Data Completed and Pending Labs on day of discharge: Labs from last 24 hours 07/25/19 11:10 Sodium 135 L Potassium 4.4 Chloride 99 Carbon Dioxide 26.9 Anion Gap 9.1 BUN 36 H Creatinine 1.35 H Estimated GFR/1.73 m2 37.45 Glucose 123 H Calcium 9.8 NT-Pro-B Natriuret Pep 1163 H Preliminary micro results at discharge 07/21/19 17:33 Blood Culture - Preliminary Blood NO GROWTH 72 HOURS 07/21/19 17:33 Blood Culture - Preliminary Blood NO GROWTH 72 HOURS 07/20/19 11:20 Blood Culture - Preliminary Blood NO GROWTH 96 HOURS 07/20/19 11:27 Blood Culture - Preliminary Blood Staph aureus, MRSA PFSH Medical History (Updated 07/25/19 @ 13:41 by Simone Wade) Asthma (Chronic) Asthma (Chronic) Atrial fibrillation (Chronic) Bullous pemphigoid (Acute) CHF (congestive heart failure) (Chronic) CHF (congestive heart failure) (Chronic) Chronic kidney disease (Acute) CKD (chronic kidney disease) (Chronic) COPD (chronic obstructive pulmonary disease) (Chronic) Depression (Chronic) HTN (hypertension) (Chronic) Hypercalcemia (Chronic) Hypertension (Chronic) MRSA cellulitis (Acute) PAF (paroxysmal atrial fibrillation) (Chronic) Presence of permanent cardiac pacemaker (Chronic) Pulmonary hypertension (Chronic) Surgical History AICD (automatic cardioverter/defibrillator) present (Acute) H/O thoracic aortic aneurysm repair (Acute) History of thoracic aortic aneurysm repair (Chronic) Pacemaker (Acute) Social History Smoking/Tobacco Use Status: Never Alcohol Intake: never Substance use type: does not use Do you feel safe at home: Yes Do you feel safe in your relationship?: Yes
--- NOTE | 2019-07-25 16:08 | INDS_ITS ---
Date of service: 07/25/19 Time of Service: 16:08 PT Notes Visit Reasons: ACUTE ON CHRONIC DIASTOLIC CHF, ZAFAR ON CKD PT Inpatient Discharge Summary Date: 07/25/2019 Dates of Services: through 07/25/2019 This is a clinical summary of care provided on the duration of dates listed above. No charge was made in the completion of this documentation. Referring Doctor: Constanza Schultz M.D. PT Orders: PT CONSULT: Limited Ability Precautions: Fall. Standard. Activity as tolerated. Patient Profile/Admitting Diagnosis: Pt is an 84-year-old female that presented on a cardiology follow-up appointment, on 07/19/2019, with shortness of breath, peripheral edema, and itching. She was admitted for acute kidney injury superimposed on chronic kidney injury, acute on chronic diastolic chronic heart failure, generalized pruritis due to bullous pemphygoid, and pulmonary hypertension. PMHX: Medical History Hypercalcemia (Chronic) CHF (congestive heart failure) (Chronic) Presence of permanent cardiac pacemaker (Chronic) PAF (paroxysmal atrial fibrillation) (Chronic) Hypertension (Chronic) Pulmonary hypertension (Chronic) Asthma (Chronic) CKD (chronic kidney disease) (Chronic) Chronic kidney disease (Acute) Asthma (Chronic) Atrial fibrillation (Chronic) CHF (congestive heart failure) (Chronic) COPD (chronic obstructive pulmonary disease) (Chronic) Depression (Chronic) HTN (hypertension) (Chronic) Surgical History History of thoracic aortic aneurysm repair (Chronic) AICD (automatic cardioverter/defibrillator) present (Acute) H/O thoracic aortic aneurysm repair (Acute) Pacemaker (Acute) Social History/Home Situation: Pt lives at home with her daughter, Orly, in [place], [place]. Reports one step to enter the home. Bedroom in on the first floor, but goes to the second floor requiring her to ascend/descend 12 steps. Equipment Owned/DME: walker Subjective: NT Objective: General Observation: NT Mental Status: NT Pain: NT ROM: Right Upper Extremity: Shoulder Flexion WFL. Shoulder abduction WFL. Elbow flexion WFL. Wrist flexion WFL. Opening and closing of hand WFL. Left Upper Extremity: Shoulder Flexion WFL. Shoulder abduction WFL. Elbow flexion WFL. Wrist flexion WFL. Opening and closing of hand WFL. Right Lower Extremity: Hip flexion WFL. Hip abduction WFL. Knee flexion WFL. Ankle dorsiflexion WFL. Ankle plantarflexion WFL. Left Lower Extremity: Hip flexion WFL. Hip abduction WFL. Knee flexion WFL. Ankle dorsiflexion WFL. Ankle plantarflexion WFL. Strength: Right Upper Extremity: Shoulder flexors 4/5. Shoulder abductors 4+/5. Elbow flexors 4/5. Elbow extensors 4/5. [place] strong. Left Upper Extremity: Shoulder flexors 4/5. Shoulder abductors 4+/5. Elbow flexors 4/5. Elbow extensors 4/5. [place] strong. Right Lower Extremity: Hip flexors 4/5. Hip abductors 4/5. Knee flexors 4+/5. Knee extensors 4-/5. Ankle dorsiflexors 4/5. Ankle plantarflexors 4+/5. Left Lower Extremity: Hip flexors 4/5. Hip abductors 4/5. Knee flexors 4+/5. Knee extensors 4-/5. Ankle dorsiflexors 4/5. Ankle plantarflexors 4-/5 (c/o foot ?catching?). Sensation: Intact as to pain and pressure on bilateral lower extremities. Bed Mobility/Transfers: Sit to stand supervision Stand to sit supervision Bed to chair supervision Chair to bed supervision Gait: Pt was able to ambulate approximately 25-100 feet, full weight bearing, using a front-wheeled walker with CGA. Stairs: Pt was able to ascend/descend the 4-inch steps x 9 and 6-inch steps x 6 with bilateral upper extremity support on rails. SBA provided by PT and PT student. Reciprocal gait pattern with ascending stairs and step-to gait pattern with descending. Complained of increased SOB and required a seated rest break. SpO2 dropped to 84%, and improved to 91% with rest and cues for deep breathes. Balance: Static Sitting: Normal Dynamic Sitting: Normal Static Standing: Good Dynamic Standing: Fair Assessment: Pt is an 84-year-old female that presented on a cardiology follow-up appointment, on 07/19/2019, with shortness of breath, peripheral edema, and itching. She was admitted for acute kidney injury superimposed on chronic kidney injury, acute on chronic diastolic chronic heart failure, generalized pruritis due to bullous pemphigoid, and pulmonary hypertension. Pt presented to physical therapy with impairment level findings and functional limitations as listed below. AM-PAC raw score of 22 with 21% deficit. She would continue to benefit from skilled physical therapy at home. Goals: Goals X1 week 1. Supine-Sit independent MET 2. Sit-Supine independent MET 3. Sit-Stand independent NOT MET 4. Stand-Sit independent NOT MET 5. Bed-Chair independent NOT MET 6. Chair-Bed independent NOT MET 7. Independent gait on level surface with use of least restrictive device for at least 300 feet without report of pain nor dyspnea NOT MET 8. Independent stair negotiation while holding onto bilateral rails for at least 15 steps without report of pain nor dyspnea NOT MET 9. Independent with home exercise program NOT MET 10. Good static and dynamic standing balance/tolerance NOT MET DISCHARGE RECOMMENDATIONS: Discharge to home when medically cleared with home health physical therapy for improved mobility, strengthening, balance, and a safe transition to home. Patient will benefit from home health PT services in order to progress mobility level using least restrictive assistive ambulatory device, assess home safety, identify additional equipment needs, and establish a functional maintenance program that will increase ability of patient to remain at home. TREATMENT CODE/TIME: TX Thank you very much for this referral. This is a clinical summary of care provided on the duration of dates listed above. No charge was made in the completion of this documentation. Suma Torres PT, DPT, CLT [facility] [place], [place]
== END 2019-07-25 14:04 | disposition home or self-care (01) | DRG 292 ==
PROVIDERS: Surgery; Admitting Provider Internal Medicine; PCP Specialist/Technologist Athletic Trainer; Visit Provider Internal Medicine
DX: I50.33 Acute on chronic diastolic (congestive) heart failure (principal); N17.9 Acute kidney failure, unspecified; R78.81 Bacteremia; N39.0 Urinary tract infection, site not specified; L12.0 Bullous pemphigoid; T80.1XXA Vascular complications following infusion, transfusion and therapeutic injection, initial encounter; I13.0 Hypertensive heart and chronic kidney disease with heart failure and stage 1 through stage 4 chronic kidney disease, or unspecified chronic kidney disease; L03.113 Cellulitis of right upper limb; N18.9 Chronic kidney disease, unspecified; I80.8 Phlebitis and thrombophlebitis of other sites; B95.62 Methicillin resistant Staphylococcus aureus infection as the cause of diseases classified elsewhere; I48.0 Paroxysmal atrial fibrillation; Z79.01 Long term (current) use of anticoagulants; I27.22 Pulmonary hypertension due to left heart disease; I49.5 Sick sinus syndrome; Z95.0 Presence of cardiac pacemaker; Z66 Do not resuscitate; J44.9 Chronic obstructive pulmonary disease, unspecified; B96.20 Unspecified Escherichia coli [E. coli] as the cause of diseases classified elsewhere
CPT/HCPCS: 36410; 36415; 36569; 76770; 80048; 84145; 85027; 87040; 87077; 87449; 93306; 94640; 97110; 97162; 97530; 99214; 99221; 99223; 99226; 99231; 99232; 99233; 99252; 99316; 71045; 71046; 81003; 81015; 82728; 83605; 83735; 83880; 84132; 84439; 84443; 84484; 85025; 86140; 87086; 87186; 93005; 93010; 99239; J0696; J0878; J1644; J1940; J3480

== ENCOUNTER 2019-07-28 02:02 | Outpatient (RCR) | payer MEDICARE, SELFPAY ==
[2019-07-26] MEDS: DAPTOmycin 500 MG in Normal Saline 50 ML 100 MG IVPB (12:10)
[2019-07-26] MEDS: Normal Saline Flush 10 ML SYR IVP (12:10)
[2019-07-27] MEDS: Normal Saline Flush 10 ML SYR IVP (11:56)
[2019-07-27] MEDS: DAPTOmycin 500 MG in Normal Saline 50 ML 100 MG IVPB (11:56)
[2019-07-28] MEDS: DAPTOmycin 500 MG in Normal Saline 50 ML 100 MG IVPB (12:17)
[2019-07-28] MEDS: Normal Saline Flush 10 ML SYR IVP (12:18)
== END 2019-07-28 23:59 | disposition home or self-care (01) ==
LOC: INF 02:02
PROVIDERS: PCP Specialist/Technologist Athletic Trainer; Visit Provider Internal Medicine
DX: L12.0 Bullous pemphigoid (principal); B95.62 Methicillin resistant Staphylococcus aureus infection as the cause of diseases classified elsewhere
CPT/HCPCS: 96365; J0878

== ENCOUNTER 2019-08-03 18:58 | Outpatient (REF) | payer MEDICARE, SELFPAY | END 2019-08-03 19:18 | LOC: NCHCN 18:58 | PROVIDERS: PCP Specialist/Technologist Athletic Trainer; Visit Provider Nurse Practitioner Family | DX: R30.0 Dysuria (principal) | CPT/HCPCS: 87086 ==

== ENCOUNTER → 2019-08-06 11:19 | Outpatient (BNVA) | payer MEDICARE, SELFPAY | PROVIDERS: PCP Specialist/Technologist Athletic Trainer; Referring Provider Specialist/Technologist Athletic Trainer; Visit Provider Internal Medicine Cardiovascular Disease | DX: I50.33 Acute on chronic diastolic (congestive) heart failure (principal); I13.0 Hypertensive heart and chronic kidney disease with heart failure and stage 1 through stage 4 chronic kidney disease, or unspecified chronic kidney disease; N18.9 Chronic kidney disease, unspecified; J44.9 Chronic obstructive pulmonary disease, unspecified; Z95.0 Presence of cardiac pacemaker | CPT/HCPCS: 99215 ==

== ENCOUNTER 2019-08-19 01:48 | Outpatient (RCR) | payer MEDICARE, SELFPAY ==
[2019-07-29] MEDS: DAPTOmycin 500 MG in Normal Saline 50 ML 100 MG IVPB (11:55)
[2019-07-29] MEDS: Normal Saline Flush 10 ML SYR IVP (11:56)
[2019-07-30] MEDS: DAPTOmycin 500 MG in Normal Saline 50 ML 100 MG IVPB (12:00)
[2019-07-30] MEDS: Normal Saline Flush 10 ML SYR IVP (12:11)
[2019-07-30 12:39] LABS: Anion Gap 10.1 mmol/L (3-11); BUN 63 mg/dL (7-18); CO2 26.9 mmol/L (21.0-32.0); CREATININE 2.76 mg/dL (0.55-1.02); Calcium 9.8 mg/dL (8.5-10.1); Chloride 102 mmol/L (98-107); Creatine Kinase 85 U/L (26-192); Estimated GFR 16.41 (mL/min/1.73m2); Glucose 79 mg/dL (74-106); Potassium 4.2 mmol/L (3.5-5.1); Sodium 139 mmol/L (136-145)
[2019-07-31] MEDS: DAPTOmycin 500 MG in Normal Saline 50 ML 100 MG IVPB (11:53)
[2019-07-31] MEDS: Normal Saline Flush 10 ML SYR IVP (11:54)
[2019-08-01] MEDS: DAPTOmycin 500 MG in Normal Saline 50 ML 100 MG IVPB (12:03)
[2019-08-01] MEDS: Normal Saline Flush 10 ML SYR IVP (12:07)
[2019-08-02] MEDS: DAPTOmycin 500 MG in Normal Saline 50 ML 100 MG IVPB (12:05)
[2019-08-02] MEDS: Normal Saline Flush 10 ML SYR IVP (12:06)
[2019-08-03] MEDS: DAPTOmycin 500 MG in Normal Saline 50 ML 100 MG IVPB (12:08)
[2019-08-03] MEDS: Normal Saline Flush 10 ML SYR IVP (12:09)
[2019-08-04] MEDS: Normal Saline Flush 10 ML SYR IVP (12:24)
[2019-08-05] MEDS: DAPTOmycin 500 MG in Normal Saline 50 ML 100 MG IVPB (11:47)
[2019-08-05] MEDS: Normal Saline Flush 10 ML SYR IVP (11:48)
[2019-08-05 12:01] LABS: Anion Gap 8.1 mmol/L (3-11); BUN 51 mg/dL (7-18); C-Reactive Protein 1.44 mg/dL (0.0-0.3); CO2 26.9 mmol/L (21.0-32.0); CREATININE 2.04 mg/dL (0.55-1.02); Calcium 9.7 mg/dL (8.5-10.1); Chloride 106 mmol/L (98-107); Creatine Kinase 322 U/L (26-192); Estimated GFR 23.26 (mL/min/1.73m2); Glucose 101 mg/dL (74-106); NT-proBNP 2455 pg/mL (<300); Potassium 4.1 mmol/L (3.5-5.1); Sodium 141 mmol/L (136-145)
[2019-08-07] MEDS: Normal Saline Flush 10 ML SYR IVP (12:13)
[2019-08-09] MEDS: Normal Saline Flush 10 ML SYR IVP ×2 (11:50→12:28)
[2019-08-11] MEDS: Normal Saline Flush 10 ML SYR IVP (10:59)
[2019-08-13 11:05] LABS: Anion Gap 10.1 mmol/L (3-11); BUN 55 mg/dL (7-18); CO2 26.9 mmol/L (21.0-32.0); CREATININE 1.53 mg/dL (0.55-1.02); Calcium 9.5 mg/dL (8.5-10.1); Chloride 103 mmol/L (98-107); Creatine Kinase 78 U/L (26-192); Estimated GFR 32.41 (mL/min/1.73m2); Glucose 106 mg/dL (74-106); NT-proBNP 4083 pg/mL (<300); Potassium 4.1 mmol/L (3.5-5.1); Sodium 140 mmol/L (136-145)
[2019-08-13] MEDS: Normal Saline Flush 10 ML SYR IVP (11:16)
[2019-08-13 12:11] LABS: C-Reactive Protein 0.34 mg/dL (0.0-0.3)
[2019-08-15] MEDS: Normal Saline Flush 10 ML SYR IVP (11:00)
[2019-08-17] MEDS: Normal Saline Flush 10 ML SYR IVP (10:44)
[2019-08-19] MEDS: Normal Saline Flush 10 ML SYR IVP ×2 (10:59→11:47)
== END 2019-08-28 23:59 | disposition home or self-care (01) ==
LOC: INF 01:48
PROVIDERS: PCP Specialist/Technologist Athletic Trainer; Visit Provider Internal Medicine
DX: R78.81 Bacteremia (principal); I50.33 Acute on chronic diastolic (congestive) heart failure; L12.0 Bullous pemphigoid; B95.62 Methicillin resistant Staphylococcus aureus infection as the cause of diseases classified elsewhere; N18.9 Chronic kidney disease, unspecified
CPT/HCPCS: 36415; 36592; 80048; 82550; 96365; 83880; 86140; J0878

== ENCOUNTER 2019-08-24 21:26 | Outpatient (REF) | payer MEDICARE, SELFPAY ==
[2019-08-24 22:10] LABS: CREATININE 2.48 mg/dL (0.55-1.02); Calcium 9.5 mg/dL (8.5-10.1); Chloride 96 mmol/L (98-107); Estimated GFR 18.56 (mL/min/1.73m2); Glucose 126 mg/dL (74-106); NT-proBNP 1971 pg/mL (<300); Potassium 4.1 mmol/L (3.5-5.1); Sodium 133 mmol/L (136-145)
[2019-08-24 22:35] LABS: BUN 100 mg/dL (7-18)
== END 2019-08-24 21:46 ==
LOC: LBN 21:26
PROVIDERS: PCP Specialist/Technologist Athletic Trainer; Visit Provider Family Medicine
DX: I50.33 Acute on chronic diastolic (congestive) heart failure (principal); I13.0 Hypertensive heart and chronic kidney disease with heart failure and stage 1 through stage 4 chronic kidney disease, or unspecified chronic kidney disease; N18.9 Chronic kidney disease, unspecified
CPT/HCPCS: 80048; 83880

== ENCOUNTER 2019-08-31 18:51 | Outpatient (REF) | payer MEDICARE, SELFPAY ==
[2019-08-31 19:28] LABS: Anion Gap 5.4 mmol/L (3-11); BUN 59 mg/dL (7-18); CO2 29.6 mmol/L (21.0-32.0); CREATININE 1.73 mg/dL (0.55-1.02); Calcium 9.4 mg/dL (8.5-10.1); Chloride 104 mmol/L (98-107); Estimated GFR 28.13 (mL/min/1.73m2); Glucose 73 mg/dL (74-106); Magnesium 2.4 mg/dL (1.8-2.4); Sodium 139 mmol/L (136-145)
== END 2019-08-31 19:11 ==
LOC: NCHCN 18:51
PROVIDERS: PCP Specialist/Technologist Athletic Trainer; Visit Provider Family Medicine
DX: I50.9 Heart failure, unspecified (principal); N18.9 Chronic kidney disease, unspecified
CPT/HCPCS: 80048; 83735

== ENCOUNTER → 2019-09-20 09:42 | Outpatient (BNVA) | payer MEDICARE, SELFPAY | PROVIDERS: PCP Specialist/Technologist Athletic Trainer; Referring Provider Specialist/Technologist Athletic Trainer; Visit Provider Internal Medicine Cardiovascular Disease | DX: I50.9 Heart failure, unspecified (principal); I48.0 Paroxysmal atrial fibrillation; I12.9 Hypertensive chronic kidney disease with stage 1 through stage 4 chronic kidney disease, or unspecified chronic kidney disease; I27.20 Pulmonary hypertension, unspecified; N18.9 Chronic kidney disease, unspecified | CPT/HCPCS: 99214; 99443 ==

== ENCOUNTER 2019-10-05 18:53 | Outpatient (REF) | payer MEDICARE, SELFPAY | END 2019-10-05 19:13 | LOC: LBN 18:53 | PROVIDERS: PCP Specialist/Technologist Athletic Trainer; Visit Provider Nurse Practitioner Family | DX: S91.104A Unspecified open wound of right lesser toe(s) without damage to nail, initial encounter (principal) | CPT/HCPCS: 87077; 87070; 87186; 87205 ==

== ENCOUNTER → 2019-10-31 09:16 | Outpatient (BNVA) | payer MEDICARE, SELFPAY | PROVIDERS: PCP Specialist/Technologist Athletic Trainer; Referring Provider Specialist/Technologist Athletic Trainer; Visit Provider Internal Medicine Cardiovascular Disease | DX: I49.5 Sick sinus syndrome (principal); I48.91 Unspecified atrial fibrillation; Z45.018 Encounter for adjustment and management of other part of cardiac pacemaker; I11.0 Hypertensive heart disease with heart failure; I50.9 Heart failure, unspecified; J44.9 Chronic obstructive pulmonary disease, unspecified | CPT/HCPCS: 93280; 99212 ==

== ENCOUNTER 2019-11-23 17:55 | Outpatient (REF) | payer MEDICARE, SELFPAY ==
[2019-11-23 19:49] LABS: Anion Gap 10.3 mmol/L (3-11); BUN 37 mg/dL (7-18); CO2 24.7 mmol/L (21.0-32.0); CREATININE 1.72 mg/dL (0.55-1.02); Chloride 103 mmol/L (98-107); Estimated GFR 28.32 (mL/min/1.73m2); Glucose 116 mg/dL (74-106); NT-proBNP 4409 pg/mL (<300); Potassium 4.4 mmol/L (3.5-5.1); Sodium 138 mmol/L (136-145)
== END 2019-11-23 18:15 ==
LOC: NCHCN 17:55
PROVIDERS: PCP Specialist/Technologist Athletic Trainer; Visit Provider Nurse Practitioner Family
DX: I50.33 Acute on chronic diastolic (congestive) heart failure (principal)
CPT/HCPCS: 80048; 83880

== ENCOUNTER 2019-11-29 11:23 | Outpatient (CLI) | payer MEDICARE, SELFPAY ==
[2019-11-29 11:54] LABS: Anion Gap 7.7 mmol/L (3-11); BUN 45 mg/dL (7-18); CO2 29.3 mmol/L (21.0-32.0); CREATININE 2.01 mg/dL (0.55-1.02); Calcium 11.2 mg/dL (8.5-10.1); Chloride 100 mmol/L (98-107); Estimated GFR 23.66 (mL/min/1.73m2); Glucose 107 mg/dL (74-106); Magnesium 2.6 mg/dL (1.8-2.4); Potassium 4.9 mmol/L (3.5-5.1); Sodium 137 mmol/L (136-145)
== END 2019-11-29 11:43 ==
PROVIDERS: PCP Specialist/Technologist Athletic Trainer; Visit Provider Nurse Practitioner Family
DX: I50.9 Heart failure, unspecified (principal); N17.9 Acute kidney failure, unspecified
CPT/HCPCS: 36415; 80048; 83735

== ENCOUNTER → 2019-12-03 10:08 | Outpatient (BNVA) | payer MEDICARE, SELFPAY | PROVIDERS: PCP Specialist/Technologist Athletic Trainer; Referring Provider Specialist/Technologist Athletic Trainer; Visit Provider Internal Medicine Cardiovascular Disease | DX: I48.0 Paroxysmal atrial fibrillation (principal); I50.9 Heart failure, unspecified; I13.0 Hypertensive heart and chronic kidney disease with heart failure and stage 1 through stage 4 chronic kidney disease, or unspecified chronic kidney disease; N18.9 Chronic kidney disease, unspecified; J44.9 Chronic obstructive pulmonary disease, unspecified | CPT/HCPCS: 99214 ==

== ENCOUNTER → 2019-12-12 08:33 | Outpatient (BNVA) | payer MEDICARE, SELFPAY | PROVIDERS: PCP Specialist/Technologist Athletic Trainer; Referring Provider Specialist/Technologist Athletic Trainer; Visit Provider Internal Medicine Cardiovascular Disease | DX: I50.89 Other heart failure (principal); I13.0 Hypertensive heart and chronic kidney disease with heart failure and stage 1 through stage 4 chronic kidney disease, or unspecified chronic kidney disease; N18.9 Chronic kidney disease, unspecified; Z95.0 Presence of cardiac pacemaker; J44.9 Chronic obstructive pulmonary disease, unspecified | CPT/HCPCS: 99214 ==

== ENCOUNTER 2019-12-13 11:49 | Emergency (ER) | payer MEDICARE, SELFPAY ==
[2019-12-13] VITALS (32 sets, daily range): BP systolic 82–125; BP diastolic 39–111; PULSE 54–63; RESP 13–28; TEMP 36.6; O2SAT 91–99
--- NOTE | 2019-12-13 11:45 | RT.EKG_ITS ---
APPROVED REPORT Exam: Resting ECG Patient Location: E HR:61 bpm ECG Measurements Heart Rate 61 AXIS [place] 242 P [id number] QRSd 103 QRS 9 QT 442 T 87 QTc 446 <Conclusion> Atrial-paced rhythm Probable LVH with secondary repol abnrm...multiple LVH criteria
--- NOTE | 2019-12-13 12:00 | DI.RAD_ITS ---
EXAM: XR CHEST 2V PA LATERAL CLINICAL HISTORY: SOB, 5# weight gain TECHNIQUE: COMPARISON: CR XR CHEST 2V PA LATERAL from 07/25/2019 FINDINGS: Heart is enlarged and appears to of increased in size in comparison with prior radiographs of 020. There is transvenous cardiac pacemaker in position. There are multiple sternal sutures. Note is again made of right-sided volume loss and apparent pulmonary fibrotic changes. No gross inte rval change appearance of lungs since the previous examination. No pleural effusion seen. IMPRESSION: Cardiomegaly, apparently new since June of 2019. No evidence of CHF at this time.
--- NOTE | 2019-12-13 12:19 | ED.GENADUL_ITS ---
Discharge Plan Disposition Patient Disposition: HOME Condition: Stable Discharge Details Chief Complaint: SOB Clinical Impression: CHF (congestive heart failure), Chronic kidney disease, Bullous pemphigoid Primary Care Provider: Fran Self ED Provider: Raffi Castro Home Meds and New Rx's Prescriptions: Continued sennosides [Senokot] 8.6 mg tablet 8.6 mg PO HS PRNRF: 0 albuterol sulfate [Ventolin HFA] 90 mcg/actuation HFA aerosol inhaler 2 puff IH Q4H PRNRF: 0 polyethylene glycol 3350 17 gram powder in packet 17 g PO DAILY PRNRF: 0 docusate sodium [Colace] 100 mg capsule 100 mg PO TID PRNRF: 0 potassium chloride [Klor-Con M20] 20 mEq tablet,ER particles/crystals 20 meq PO DAILY RF: 0 clonidine HCl 0.1 mg tablet 0.1 mg PO QHS RF: 0 spironolactone 50 mg tablet 50 mg PO DAILY RF: 0 prednisone 2.5 mg tablet 7.5 mg PO DAILY RF: 0 furosemide 80 mg tablet 80 mg PO BID Qty: 180 RF: 3 metoprolol tartrate 25 MG tablet 25 mg PO BID RF: 0 Eliquis 2.5 MG tablet 2.5 mg PO BID RF: 0 losartan 25 mg tablet 25 mg PO DAILY RF: 0 isosorbide mononitrate 30 mg tablet extended release 24 hr 30 mg PO DAILY Qty: 90 RF: 3 metolazone 2.5 mg tablet 2.5 mg PO .OTHER RF: 0 pantoprazole 40 mg Tablet,Delayed Release (Dr/Ec) 40 mg PO DAILY RF: 0 theophylline 400 mg Tablet Extended Release 24 Hr 200 mg PO DAILY RF: 0 Breo Ellipta 100-25 mcg/dose Blister With Device 1 inh Inhalation DAILY RF: 0 Discharge Instructions Instructions: Heart Failure (ED) Additional Instructions: As we discussed, your case was reviewed with Dr. Colindres who asked for us to provide you with Kenalog injections and have you begin to taper your prednisone starting today. He will arrange for you to be followed up in clinic. We will ask our care management team to arrange a follow-up for you in primary care clinic to continue to closely observe your heart and kidney function. Return if you have increasing difficulty breathing, increasing weight gain, develop a fever or any other new acute concerns. Continue normal routine activities and continue your regular medications. Referrals: Artis Cramer MD [ CONSULTING PHYSICIAN] - Medical Decision Making Delightful 84-year-old female history of CHF, A. fib, status post pacemaker who presents on referral from primary care office. She and her daughter report 3 to 4 days of worsening exertional dyspnea associated with a 5 pound weight gain. They were seen in cardiology clinic yesterday with no changes to current regimen. Patient will note history of bullous pemphigoid and had recurrence of blistering for which she is currently on 60 mg of daily prednisone with a plan to taper to 14 next week. She arrives to the ER afebrile with a blood pressure 125/50, 94 to 97% oxygenation on room air at rest. Her laboratories reveal persistent renal insufficiency with a BUN of 83, creatinine 2.4, BNP 2379, troponin negative. CXR: Cardiomegaly, apparently new since June of 2019. No evidence of CHF at this time per Dr Carreno. I did discuss the case with the patient's incident commander, Dr. Colindres. He agrees with trying to taper the patient down from her current prednisone of which she states is 60 mg/day. He recommends adding IM Kenalog 40 mg each buttock for a total of 80 mg. We hope to decrease the patient's fluid retention through these medication changes and the patient will have a short-term follow-up in dermatology clinic. Patient continues to oxygenate well, she is in no acute distress, we discussed at length that ongoing management of her CHF will result in challenging management of her chronic kidney disease. We will ask care management to arrange a follow-up for her in clinic for repeat evaluation/chemistries in the next 5 to 6 days time. We will also ask for follow-up in cardiology as she may need to have a reduction in diuresis. The family will continue to monitor daily weights. They understand indications to return to the ER. They are comfortable with the plan as stated. Lab Data Lab results reviewed: Yes I reviewed the patient's lab results. Labs: Laboratory Results - last 24 hr 12/13/19 12/13/19 12/13/19 12:00 12:00 12:00 WBC 10.86 H RBC 3.67 L Hgb 10.5 L Hct 34.1 L MCV 92.9 MCH 28.6 MCHC 30.8 L RDW 14.9 H Plt Count 322 MPV 9.4 Immature Gran % 0.3 Neutrophils % 86.3 Lymphocytes % 6.4 Monocytes % 5.1 Eosinophils % 1.7 Basophils % 0.2 Absolute Neutrophils 9.37 H Absolute Lymphocytes 0.70 L Absolute Monocytes 0.55 Absolute Eosinophils 0.18 Absolute Basophils 0.02 Sodium 134 L Potassium 5.0 Chloride 98 Carbon Dioxide 25.2 Anion Gap 10.8 BUN 83 H* Creatinine 2.48 H Estimated GFR/1.73 m2 18.56 Glucose 112 H Calcium 9.9 Magnesium 2.8 H Total Bilirubin 0.5 AST 22 ALT 18 Alkaline Phosphatase 68 Troponin I < 0.05 NT-Pro-B Natriuret Pep 2379 H Total Protein 7.7 Albumin 4.1 HPI General Mode of arrival: wheelchair . Date/Time Provider Initiated Documentation: 12/13/19 12:05 . Limitations to Documentation: no limitations . Information obtained by: patient and family . History of Present Illness 84 year old F presents to the emergency department with the chief complaint of Shortness of breath and 5 pound weight gain this week, Quality is described as dull and constant, and is localized to the chest and lower extremity. Patient started experiencing this day(s) and it has been intermittent. Rest improves symptom(s), Movement worsens symptoms . Patient notes denies chest pain, fever/chills and syncope. Patient did receive the following treatments prior to arrival, none Related Data Home Medications Medication Instructions Recorded Confirmed Eliquis 2.5 mg PO BID tab-cap 09/17/16 12/13/19 metoprolol tartrate 25 mg PO BID tab-cap 09/17/16 12/13/19 Breo Ellipta 1 inh INHALATION DAILY 09/01/18 12/13/19 albuterol sulfate 90 mcg/actuation 2 puff IH Q4H PRN gm 10/30/18 12/13/19 aerosol inhaler sennosides 8.6 mg tablet 8.6 mg PO HS PRN tab 10/30/18 12/13/19 polyethylene glycol 3350 17 gram 17 g PO DAILY PRN each 11/27/18 12/13/19 oral powder packet losartan 25 mg tablet 25 mg PO DAILY 01/05/19 12/13/19 isosorbide mononitrate 30 mg 30 mg PO DAILY #90 tab 03/07/19 12/13/19 tablet,extended release 24 hr docusate sodium 100 mg capsule 100 mg PO TID PRN cap 06/13/19 12/13/19 pantoprazole 40 mg PO DAILY 07/17/19 12/13/19 theophylline 200 mg PO DAILY 07/17/19 12/13/19 potassium chloride 20 mEq 20 meq PO DAILY tab 08/06/19 12/13/19 tablet,extended release(part/cryst) metolazone 2.5 mg tablet 2.5 mg PO .OTHER tab 08/20/19 12/13/19 clonidine HCl 0.1 mg tablet 0.1 mg PO QHS 12/03/19 12/13/19 furosemide 80 mg tablet 80 mg PO BID #180 tab 12/03/19 12/13/19 prednisone 2.5 mg tablet 7.5 mg PO DAILY tab 12/03/19 12/13/19 spironolactone 50 mg tablet 50 mg PO DAILY 12/03/19 12/13/19 Previous Rx's Medication Instructions Recorded isosorbide mononitrate 30 mg 30 mg PO DAILY #90 tab 03/07/19 tablet,extended release 24 hr furosemide 80 mg tablet 80 mg PO BID #180 tab 12/03/19 Allergies Allergy/AdvReac Type Severity Reaction Status Date / Time adhesive Allergy Unverified 12/13/19 12:03 gluten Allergy Unverified 12/13/19 12:03 pork derived (porcine) Allergy Unverified 12/13/19 12:03 dapsone AdvReac dizziness, Verified 12/13/19 12:03 headache, nausea coumadin Allergy Uncoded 12/13/19 12:03 dairy Allergy Uncoded 12/13/19 12:03 eggs Allergy Uncoded 12/13/19 12:03 flu vaccine Allergy Uncoded 12/13/19 12:03 tape Allergy Uncoded 12/13/19 12:03 General Stated Complaint: SOB WESLEY: 2 Review of Systems Narrative: 6 systems reviewed and otherwise negative. 5 pound weight gain this week. Increasing dyspnea on exertion this week. Seen in cardiology clinic yesterday. [facility] Medical History Asthma (Chronic) Asthma (Chronic) Atrial fibrillation (Chronic) Bullous pemphigoid (Acute) CHF (congestive heart failure) (Chronic) CHF (congestive heart failure) (Chronic) Chronic kidney disease (Acute) CKD (chronic kidney disease) (Chronic) COPD (chronic obstructive pulmonary disease) (Chronic) Depression (Chronic) HTN (hypertension) (Chronic) Hypercalcemia (Chronic) Hypertension (Chronic) MRSA cellulitis (Acute) PAF (paroxysmal atrial fibrillation) (Chronic) Presence of permanent cardiac pacemaker (Chronic) Pulmonary hypertension (Chronic) Social History Smoking/Tobacco Use Status: Never Alcohol Intake: never Substance use type: does not use Do you feel safe at home: Yes Do you feel safe in your relationship?: Yes Exam Narrative Exam Narrative: GEN: awake, alert, oriented 3. Pleasant, well groomed, interactive. HEAD: Normocephalic, atraumatic ENT: Mucous membranes moist, oropharynx unremarkable, External ear exam unremarkable EYES: PERRL, EOMI NECK: Full ROM, no GUILHERME, no menigismus CHEST/RESP: Nontender, coarse rales at bases bilaterally CARDIOVASCULAR: RRR, distant, soft blowing systolic murmur. 2+ Rad pulse bilateral ABDOMEN: Soft, nontender, no mass. +Bowel sounds EXT: Full ROM, 1+ pretibial edema bilaterally, there are scattered vesicles and bullae on extremities, they are not coalescing Neuro: Grossly normal neurologic exam, conversant, interactive. Psych: Speech fluent, thoughts congruent, affect normal Course Vital Signs Vital signs: Vital Signs Temperature 36.6 C 12/13/19 11:56 Pulse 60 12/13/19 11:56 Respiratory Rate 21 12/13/19 11:56 Blood Pressure 125/54 L 12/13/19 11:56 Pulse Oximetry 91 L 12/13/19 11:56 Temperature 36.6 C 12/13/19 11:56 Temperature Source Temporal Artery Scan 12/13/19 11:56 Pulse 60 12/13/19 11:56 Respiratory Rate 21 12/13/19 11:56 Respiratory Effort 12/13/19 12:01 Blood Pressure 125/54 L 12/13/19 11:56 Blood Pressure Position Supine 12/13/19 11:56 Pulse Oximetry 91 L 12/13/19 11:56 Oxygen Delivery Method Room Air 12/13/19 11:56 Oxygen Flow Rate 0 12/13/19 11:56 Pain Level 5 12/13/19 11:56
[2019-12-13 12:29] LABS: Abs Immature Grans 0.03 k/cumm (0.0-0.09); Absolute Basophil Count 0.02 k/cumm (0.0-0.2); Absolute Eosinophil Count 0.18 k/cumm (0.0-0.7); Absolute Monocyte Count 0.55 k/cumm (0.11-0.7); Basophils % 0.2; Eosinophils % 1.7; HCT 34.1 % (36.0-46.0); HGB 10.5 g/dL (12.0-15.5); Immature Grans % 0.3 %; Lymphocytes % 6.4; Mean Corp. HGB Concentration 30.8 g/dL (32.0-36.0); Mean Corpuscular Hemoglobin 28.6 pg (27.0-33.0); Mean Corpuscular Volume 92.9 fL (80-95); Mean Platelet Volume 9.4 fL (8.0-11.0); Monocytes % 5.1; Neutrophils % 86.3; Platelet Count 322 x1000/uL (130-400); RBC 3.67 m/cumm (4.00-5.20); RBC Distribution Width 14.9 % (11.7-14.6); White Blood Cell Count 10.86 k/cumm (4.4-10.8)
[2019-12-13 12:31] LABS: Absolute Neutrophil Count 9.37 k/cumm (1.2-6.7)
[2019-12-13 12:49] LABS: NT-proBNP 2379 pg/mL (<300)
[2019-12-13 12:52] LABS: ALT 18 U/L (14-59); AST 22 U/L (15-37); Albumin 4.1 g/dL (3.4-5.0); Alkaline Phosphatase 68 U/L (46-116); Anion Gap 10.8 mmol/L (3-11); Bilirubin, Total 0.5 mg/dL (0.2-1.0); CO2 25.2 mmol/L (21.0-32.0); CREATININE 2.48 mg/dL (0.55-1.02); Calcium 9.9 mg/dL (8.5-10.1); Chloride 98 mmol/L (98-107); Estimated GFR 18.56 (mL/min/1.73m2); Glucose 112 mg/dL (74-106); Magnesium 2.8 mg/dL (1.8-2.4); Sodium 134 mmol/L (136-145); Total Protein 7.7 g/dL (6.4-8.2); Troponin I < 0.05 ng/mL (<0.06)
[2019-12-13 12:57] LABS: BUN 83 mg/dL (7-18)
[2019-12-13 13:05] LABS: Bilirubin Negative (Negative); Blood Trace-intact (Negative); Clarity Clear (Clear); Glucose Negative (Negative); Ketones Negative (Negative); Leukocyte Esterase Trace (Negative); Nitrite Negative (Negative); Specific Gravity 1.015 (1.005-1.025); Urobilinogen 0.2 EU/dL (Up TO 0.2)
[2019-12-13 13:20] LABS: Epithelial Cells Few HPF (Negative); Other Cells Rare Renal (Negative)
[2019-12-13 13:21] LABS: Bacteria Moderate HPF (Negative); C & S Indicated? Yes; Casts Negative LPF (Negative); Crystals Negative HPF (Negative); Mucus Trace (Negative)
[2019-12-13] MEDS: Triamcinolone 40 MG/ML VIAL IM ×2 (14:39)
[2019-12-13] MEDS: Normal Saline Flush 10 ML SYR IVP (14:40)
--- NOTE | 2019-12-13 16:53 | NUR.NOTE ---
Nursing Note: Referral faxed to PCP and [facility] Cardiology for followup. Lawanda Chanel
--- NOTE | 2019-12-15 11:09 | W.ED.FU ---
Received urine culture results growing greater than 100,000 colonies of E. coli and 10-50,000 colonies of gram-positive pratima, mixed. Reviewed urinalysis from date of service which had 3-5 red blood cells and 3-5 white blood cells as well as a few epithelial cells noted. Per Dr. Castro's note, patient was not having urinary symptoms or fever. I called and spoke with the patient this morning, she notes she feels much better. She specifically denies urinary symptoms and fever. Concern for likely contaminated specimen versus asymptomatic bacteriuria. I will not start antibiotics at this time as they are not indicated. Patient has follow-up scheduled with her primary care physician on Tuesday. I advised her to discuss results with her doctor and be reassessed at that time. I encouraged to return to the ER for any worsening or new concerning symptoms.
== END 2019-12-13 15:06 | disposition home or self-care (01) ==
PROVIDERS: Emergency Provider Emergency Medicine; PCP Specialist/Technologist Athletic Trainer
DX: I13.0 Hypertensive heart and chronic kidney disease with heart failure and stage 1 through stage 4 chronic kidney disease, or unspecified chronic kidney disease (principal); I50.9 Heart failure, unspecified; N18.9 Chronic kidney disease, unspecified; R82.71 Bacteriuria; L12.0 Bullous pemphigoid; Z79.01 Long term (current) use of anticoagulants; I48.0 Paroxysmal atrial fibrillation; J44.9 Chronic obstructive pulmonary disease, unspecified
CPT/HCPCS: 36415; 80053; 87077; 93005; 96372; 99285; 71046; 81003; 81015; 83735; 83880; 84484; 85025; 87086; 87186; 93010; 99284

== ENCOUNTER 2019-12-17 09:13 | Outpatient (REF) | payer MEDICARE, SELFPAY ==
[2019-12-17 14:37] LABS: ALT 18 U/L (14-59); AST 20 U/L (15-37); Albumin 3.9 g/dL (3.4-5.0); Alkaline Phosphatase 66 U/L (46-116); Bilirubin, Total 0.4 mg/dL (0.2-1.0); Calcium 10.1 mg/dL (8.5-10.1); Chloride 99 mmol/L (98-107); Glucose 97 mg/dL (74-106); Potassium 4.9 mmol/L (3.5-5.1); Sodium 136 mmol/L (136-145); Total Protein 7.2 g/dL (6.4-8.2)
[2019-12-17 14:46] LABS: BUN 82 mg/dL (7-18); CREATININE 2.69 mg/dL (0.55-1.02)
[2019-12-17 14:47] LABS: NT-proBNP 2117 pg/mL (<300)
[2019-12-17 16:16] LABS: Abs Immature Grans 0.03 k/cumm (0.0-0.09); Absolute Basophil Count 0.02 k/cumm (0.0-0.2); Absolute Eosinophil Count 0.31 k/cumm (0.0-0.7); Absolute Monocyte Count 0.82 k/cumm (0.11-0.7); Absolute Neutrophil Count 7.54 k/cumm (1.2-6.7); Basophils % 0.2; Eosinophils % 3.2; HCT 33.5 % (36.0-46.0); HGB 10.3 g/dL (12.0-15.5); Immature Grans % 0.3 %; Lymphocytes % 10.3; Mean Corp. HGB Concentration 30.7 g/dL (32.0-36.0); Mean Corpuscular Hemoglobin 28.6 pg (27.0-33.0); Mean Corpuscular Volume 93.1 fL (80-95); Mean Platelet Volume 10.1 fL (8.0-11.0); Monocytes % 8.4; Neutrophils % 77.6; Platelet Count 306 x1000/uL (130-400); White Blood Cell Count 9.72 k/cumm (4.4-10.8)
== END 2019-12-17 09:33 ==
LOC: NCHCN 09:13
PROVIDERS: PCP Specialist/Technologist Athletic Trainer; Visit Provider Nurse Practitioner Family
DX: N17.9 Acute kidney failure, unspecified; I50.33 Acute on chronic diastolic (congestive) heart failure; D64.9 Anemia, unspecified
CPT/HCPCS: 80048; 80053; 83880; 85025

== ENCOUNTER → 2019-12-21 10:28 | Outpatient (BNVA) | payer MEDICARE, SELFPAY | PROVIDERS: PCP Specialist/Technologist Athletic Trainer; Referring Provider Specialist/Technologist Athletic Trainer; Visit Provider Internal Medicine Cardiovascular Disease | DX: I50.33 Acute on chronic diastolic (congestive) heart failure (principal); I48.0 Paroxysmal atrial fibrillation; N18.9 Chronic kidney disease, unspecified; Z95.0 Presence of cardiac pacemaker; I13.0 Hypertensive heart and chronic kidney disease with heart failure and stage 1 through stage 4 chronic kidney disease, or unspecified chronic kidney disease; J44.9 Chronic obstructive pulmonary disease, unspecified; I50.9 Heart failure, unspecified | CPT/HCPCS: 99214 ==

== ENCOUNTER 2019-12-27 11:07 | Emergency (ER) | payer MEDICARE, SELFPAY ==
[2019-12-27] VITALS (9 sets, daily range): BP systolic 137–147; BP diastolic 54–78; PULSE 60–72; RESP 12–23; TEMP 36.6; O2SAT 98–100
--- NOTE | 2019-12-27 11:00 | RT.EKG_ITS ---
APPROVED REPORT Exam: Resting ECG Patient Location: E HR:63 bpm ECG Measurements Heart Rate 63 AXIS KS 240 P -10 QRSd 102 QRS 12 QT 425 T 79 QTc 437 <Conclusion> Sinus rhythm...normal P axis, V-rate 63 Prolonged KS interval... Probable LVH with secondary repol LVH criteria
[2019-12-27 11:53] LABS: Abs Immature Grans 0.07 10^3/uL (0.0-0.06); Absolute Basophil Count 0.06 10^3/uL (0.0-0.2); Absolute Eosinophil Count 0.22 10^3/uL (0.0-0.7); Absolute Monocyte Count 0.52 10^3/uL (0.1-0.8); Absolute Neutrophil Count 8.55 10^3/uL (1.2-6.7); Basophils % 0.6; Eosinophils % 2.1; HCT 34.2 % (36.0-46.0); HGB 10.5 g/dL (11.2-15.7); Immature Grans % 0.7; Lymphocytes % 9.6; MCH 28.2 pg (27.0-33.0); MCHC 30.7 % (32.0-36.0); MCV 91.7 fL (80-95); MPV 9.3 fL (8.0-11.0); Platelet Count 293 10^3/uL (130-400); RBC 3.73 10^6/uL (3.93-5.22); RDW 14.8 % (11.7-14.6); RDW-SD 49.6 fL; WBC 10.42 10^3/uL (4.4-10.8)
[2019-12-27 12:01] LABS: INR 1.1 (0.9-1.1); PTT Activated 21.4 sec (21.0-31.4); Prothrombin Time 10.6 sec (9.3-11.0)
[2019-12-27 12:08] LABS: ALT 19 U/L (14-59); AST 21 U/L (15-37); Albumin 3.8 g/dL (3.4-5.0); Alkaline Phosphatase 59 U/L (46-116); Anion Gap 9.3 mmol/L (3-11); BUN 54 mg/dL (7-18); Bilirubin, Total 0.4 mg/dL (0.2-1.0); CO2 25.7 mmol/L (21.0-32.0); CREATININE 1.83 mg/dL (0.55-1.02); Calcium 10.1 mg/dL (8.5-10.1); Chloride 101 mmol/L (98-107); Estimated GFR 26.36 (mL/min/1.73m2); Glucose 105 mg/dL (74-106); Magnesium 2.4 mg/dL (1.8-2.4); NT-proBNP 2063 pg/mL (<300); Potassium 4.3 mmol/L (3.5-5.1); Sodium 136 mmol/L (136-145); Total Protein 7.8 g/dL (6.4-8.2)
--- NOTE | 2019-12-27 12:08 | DI.RAD_ITS ---
EXAM: XR CHEST 2V PA LATERAL CLINICAL HISTORY: fluid retention/sob TECHNIQUE: 2D digital imaging was performed. COMPARISON: CR XR CHEST 2V PA LATERAL from 12/13/2019 FINDINGS: Sternal wires and pacemaker are again noted. The heart is enlarged, unchanged. There are stable ch ronic fibrotic changes and right-sided volume loss. No superimposed acute infiltrate, effusion or pu lmonary edema is seen. No thoracic compression fractures are visible. IMPRESSION: No acute abnormality.
[2019-12-27 12:09] LABS: Troponin I < 0.05 ng/mL (<0.06)
--- NOTE | 2019-12-27 13:04 | W.ED.GENAD ---
Discharge Plan Disposition Patient Disposition: HOME Condition: Stable Discharge Details Chief Complaint: GenMedical Clinical Impression: CHF (congestive heart failure), Edema, Dyspnea Primary Care Provider: Fran Self ED Provider: Simone Constantino Home Meds and New Rx's Prescriptions: Continued sennosides [Senokot] 8.6 mg tablet 8.6 mg PO HS PRNRF: 0 albuterol sulfate [Ventolin HFA] 90 mcg/actuation HFA aerosol inhaler 2 puff IH Q4H PRNRF: 0 polyethylene glycol 3350 17 gram powder in packet 17 g PO DAILY PRNRF: 0 docusate sodium [Colace] 100 mg capsule 100 mg PO TID PRNRF: 0 potassium chloride [Klor-Con M20] 20 mEq tablet,ER particles/crystals 20 meq PO Q2D RF: 0 clonidine HCl 0.1 mg tablet 0.1 mg PO QHS RF: 0 spironolactone 50 mg tablet 50 mg PO DAILY RF: 0 prednisone 2.5 mg tablet 5 mg PO DAILY RF: 0 furosemide 80 mg tablet 80 mg PO DAILY RF: 0 metoprolol tartrate 25 MG tablet 25 mg PO BID RF: 0 Eliquis 2.5 MG tablet 2.5 mg PO BID RF: 0 isosorbide mononitrate 30 mg tablet extended release 24 hr 30 mg PO DAILY Qty: 90 RF: 3 pantoprazole 40 mg Tablet,Delayed Release (Dr/Ec) 40 mg PO DAILY RF: 0 theophylline 400 mg Tablet Extended Release 24 Hr 200 mg PO DAILY RF: 0 Breo Ellipta 100-25 mcg/dose Blister With Device 1 inh Inhalation DAILY RF: 0 No Action losartan 25 mg tablet 25 mg PO DAILY Qty: 30 RF: 12 Discharge Instructions Instructions: Heart Failure (ED), Dyspnea (ED), Edema (ED) Additional Instructions: At this time after speaking with our cardiology team and hospitalist team they have determined that we will attempt to treat this as an outpatient. We will increase your Lasix to 80 mg twice a day. I have set you up for a lab draw on January 02 at 10:10 AM. These results will be sent directly to cardiology. They would like you to have an appointment with cardiology in 2 weeks. Please watch for new or worsening symptoms and return to the ER for any concerns. Contact the off of Dr. Cramer tomorrow to set up the appointment. Referrals: Artis Cramer MD [ CONSULTING PHYSICIAN] - Discharge Data Discharge Date/Time-TO BE ENTERED AT DEPARTURE: 12/27/19 14:03 Medical Decision Making 84-year-old female presents with her daughter, has a past medical history of CHF, chronic lung disease, bullous pemphigoid, peripheral neuropathy, adrenal insufficiency, proximal A. fib, presenting to the ER today reporting that she is here for admission, having difficulty controlling her water weight, CHF, etc. as an outpatient. She was actually seen in our ER within the last week and had medication changes. Subsequently was seen by her house worker general who discussed admission but at that time she declined but now because of additional 5 pound weight gain feels as though it is time for admission. Clinically she actually appears fairly well. I will obtain routine laboratory values including chest x-ray, BNP to determine her status today. White blood cell count of 10.42 hemoglobin 10.5, hematocrit 34.2 platelet count 293, electrolytes unremarkable. Creatinine 1.83 with a GFR of 26.36. Magnesium 2.4. Troponin less than 0.05. BNP 2062. Urinalysis to be cultured. No obvious signs of clear infection. Chest x-ray with no acute abnormality. Patient with what appears to be near baseline anemia. Her BNP and renal function appears improved when compared to her most recent visit. I did review the note from Dr. Rosales that did talk about admission. I will reach out to her for a cardiology consultation to see what she feels would be most appropriate. Dr. Rosales reports that with this patient the numbers can be deceiving and that she is concerned regarding the weight gain, finds managing her CHF as an outpatient to be rather difficult and she has had the best results with IV inpatient diuresis. At this time although her labs have improved from her previous visit she does feel as though admission would be the best for the patient. Given this I will reach out to our hospitalist team. I discussed the case with Dr. Wade on the phone, he did not personally evaluate the patient in the ER. We discussed the patient's most recent ER visit, outpatient cardiology visit, and her presentation today. We discussed my conversation with Dr. Rosales and her request for admission for IV diuresis. Based upon our conversation he did not feel as though admission was indicated and he will reach out to speak with Dr. Rosales personally. He called me back after they spoke. The plan now is to not admit the patient. Apparently we will take her Lasix from 80 mg once daily and increase it to now twice daily. He request that we had a BMP set up as an outpatient in 1 week and have the results sent to cardiology. The cardiology team would like to evaluate the patient as an outpatient in 2 weeks. This appointment will be with Dr. Cramer. Discussed this plan with patient and her daughter. They are frustrated as they do not feel as though she is tolerating outpatient therapy well and recently had her Lasix increased to 80 mg twice daily. She is finally willing to be admitted and they felt as though that is what cardiology alluded to during the most recent visit. They are agreeable to the plan set forward. I did discuss the ER presentation and disposition plan with Dr. Castro who personally saw the patient during her last ER visit, he did personally talk with the patient and family today. Please see his note. Medical Records Medical records reviewed: Yes I reviewed the patient's medical records. Imaging Data Radiologic Study: Attestation: I personally reviewed and interpreted this imaging study as follows: Imaging: X-Ray Radiologist's impression: Chest x-ray, no acute abnormality Lab Data Lab results reviewed: Yes I reviewed the patient's lab results. Lab results narrative: Laboratory Tests Range/Units 12/27/19 12/27/19 12/27/19 11:25 11:25 11:25 WBC (4.4-10.8) 10^3/uL 10.42 RBC (3.93-5.22) 10^6/uL 3.73 L Hgb (11.2-15.7) g/dL 10.5 L Hct (36.0-46.0) % 34.2 L MCV (80-95) fL 91.7 MCH (27.0-33.0) pg 28.2 MCHC (32.0-36.0) % 30.7 L RDW (11.7-14.6) % 14.8 H Plt Count (130-400) 10^3/uL 293 MPV (8.0-11.0) fL 9.3 Immature Gran % 0.7 Neutrophils % 82.0 Lymphocytes % 9.6 Monocytes % 5.0 Eosinophils % 2.1 Basophils % 0.6 Absolute Neutrophils (1.2-6.7) 10^3/uL 8.55 H Absolute Lymphocytes (1.2-3.4) 10^3/uL 1.00 L Absolute Monocytes (0.1-0.8) 10^3/uL 0.52 Absolute Eosinophils (0.0-0.7) 10^3/uL 0.22 Absolute Basophils (0.0-0.2) 10^3/uL 0.06 PT (9.3-11.0) sec 10.6 INR (0.9-1.1) 1.1 APTT (21.0-31.4) sec 21.4 Sodium (136-145) mmol/L 136 Potassium (3.5-5.1) mmol/L 4.3 Chloride (98-107) mmol/L 101 Carbon Dioxide (21.0-32.0) mmol/L 25.7 Anion Gap (3-11) mmol/L 9.3 BUN (7-18) mg/dL 54 H Creatinine (0.55-1.02) mg/dL 1.83 H Estimated GFR/1.73 m2 (mL/min/1.73m2) 26.36 Glucose (74-106) mg/dL 105 Calcium (8.5-10.1) mg/dL 10.1 Magnesium (1.8-2.4) mg/dL 2.4 Total Bilirubin (0.2-1.0) mg/dL 0.4 AST (15-37) U/L 21 ALT (14-59) U/L 19 Alkaline Phosphatase (46-116) U/L 59 Troponin I (<0.06) ng/mL < 0.05 NT-Pro-B Natriuret Pep (<300) pg/mL 2063 H Total Protein (6.4-8.2) g/dL 7.8 Albumin (3.4-5.0) g/dL 3.8 ECG Data Attestation: I personally reviewed and interpreted this ECG (s) as follows: Interpretation: EKG reviewed with Dr. Castro, please see his official report. Sinus rhythm, ventricular of 63. LVH. No STEMI HPI General Mode of arrival: ambulatory. Date/Time Provider Initiated Documentation: 12/27/19 11:10. Limitations to Documentation: no limitations. Information obtained by: patient and family. HPI Narrative: 84-year-old female presents with her family requesting admission. She has a significant past medical history that includes atrial fibrillation, bullous pemphigoid, CHF, chronic renal disease, COPD, hypertension, pacemaker, pulmonary hypertension, with recent evaluation here in the ER on the subsequently followed by cardiology on the . She has been resistance to admission to the hospital. During her last visit she was seen for bullous pemphigoid, and after dermatology consultation it was determined to decrease her steroids. Between her diuretics, steroid use, CHF, there is a very fine delicate balance. Given her creatinine was climbing they cut her Lasix in half from 160 down to 80 daily. She has had a spironolactone added on in the last 2 weeks. She was seen on the by her house worker general and they discussed admission but the patient was declining any hospitalization at that time. She reports that since that time she has had a 5 pound weight gain, her baseline shortness of breath is worsening, her hands, legs, abdomen feel tight and painful with increased fluid intake. She is willing to be hospitalized today for IV diuresis. Related Data Home Medications Medication Instructions Recorded Confirmed Eliquis 2.5 mg PO BID tab-cap 09/17/16 12/27/19 metoprolol tartrate 25 mg PO BID tab-cap 09/17/16 12/27/19 Breo Ellipta 1 inh INHALATION DAILY 09/01/18 12/27/19 albuterol sulfate 90 mcg/actuation 2 puff IH Q4H PRN gm 10/30/18 12/27/19 aerosol inhaler sennosides 8.6 mg tablet 8.6 mg PO HS PRN tab 10/30/18 12/27/19 polyethylene glycol 3350 17 gram 17 g PO DAILY PRN each 11/27/18 12/27/19 oral powder packet isosorbide mononitrate 30 mg 30 mg PO DAILY #90 tab 03/07/19 12/27/19 tablet,extended release 24 hr docusate sodium 100 mg capsule 100 mg PO TID PRN cap 06/13/19 12/27/19 pantoprazole 40 mg PO DAILY 07/17/19 12/27/19 theophylline 200 mg PO DAILY 07/17/19 12/27/19 clonidine HCl 0.1 mg tablet 0.1 mg PO QHS 12/03/19 12/27/19 spironolactone 50 mg tablet 50 mg PO DAILY 12/03/19 12/27/19 furosemide 80 mg tablet 80 mg PO DAILY tab 12/21/19 12/27/19 potassium chloride 20 mEq 20 meq PO Q2D tab 12/21/19 12/27/19 tablet,extended release(part/cryst) prednisone 2.5 mg tablet 5 mg PO DAILY tab 12/21/19 12/27/19 losartan 25 mg tablet 25 mg PO DAILY #30 tab 12/28/19 Previous Rx's Medication Instructions Recorded isosorbide mononitrate 30 mg 30 mg PO DAILY #90 tab 03/07/19 tablet,extended release 24 hr losartan 25 mg tablet 25 mg PO DAILY #30 tab 12/28/19 Allergies Allergy/AdvReac Type Severity Reaction Status Date / Time adhesive Allergy Unverified 12/27/19 11:17 gluten Allergy Unverified 12/27/19 11:17 pork derived (porcine) Allergy Unverified 12/27/19 11:17 dapsone AdvReac dizziness, Verified 12/27/19 11:17 headache, nausea coumadin Allergy Uncoded 12/27/19 11:17 dairy Allergy Uncoded 12/27/19 11:17 eggs Allergy Uncoded 12/27/19 11:17 flu vaccine Allergy Uncoded 12/27/19 11:17 tape Allergy Uncoded 12/27/19 11:17 General Stated Complaint: GenMedical WESLEY: 2 Review of Systems Constitutional Constitutional: Denies fatigue, Denies fever(s), Denies headache(s) and Reports weakness (Generalized) Eyes Eyes: Denies change in vision ENT Ears, Nose, Mouth, and Throat: Denies headache(s) Cardiovascular Cardiovascular: Denies chest pain and Reports dyspnea Respiratory Respiratory: Denies cough and Reports dyspnea Gastrointestinal Gastrointestinal: Denies abdominal pain, Denies nausea and Denies vomiting Genitourinary Genitourinary: Denies dysuria Musculoskeletal Musculoskeletal: Denies back pain, Denies numbness and Denies tingling Integumentary/Breasts Skin/Breast: Denies rash Neurologic Neurologic: Denies headache(s), Denies numbness, Denies tingling and Reports weakness (Generalized) Endocrine Endocrine: Denies fatigue [facility] Medical History Asthma (Chronic) Asthma (Chronic) Atrial fibrillation (Chronic) Bullous pemphigoid (Acute) CHF (congestive heart failure) (Chronic) CHF (congestive heart failure) (Chronic) Chronic kidney disease (Acute) CKD (chronic kidney disease) (Chronic) COPD (chronic obstructive pulmonary disease) (Chronic) Depression (Chronic) HTN (hypertension) (Chronic) Hypercalcemia (Chronic) Hypertension (Chronic) MRSA cellulitis (Acute) PAF (paroxysmal atrial fibrillation) (Chronic) Presence of permanent cardiac pacemaker (Chronic) Pulmonary hypertension (Chronic) Surgical History AICD (automatic cardioverter/defibrillator) present (Acute) H/O thoracic aortic aneurysm repair (Acute) History of thoracic aortic aneurysm repair (Chronic) Pacemaker (Acute) Social History Smoking/Tobacco Use Status: Never Alcohol Intake: never Substance use type: does not use Do you feel safe at home: Yes Do you feel safe in your relationship?: Yes Exam Const General: cooperative, healthy appearing, comfortable and no acute distress Orientation: alert, awake and oriented x3 HENLA Head: normal to inspection, normocephalic and atraumatic Mouth: moist mucous membranes Throat: posterior oropharynx normal Eyes Conjunctivae: conjunctivae normal Sclera: sclerae normal Neck Neck: normal visual inspection, full ROM, trachea midline and supple Resp Effort & Inspection: normal respiratory effort and able to speak in complete sentences Auscultation: diminished lung sounds bilaterally in the lower lung butler Cardio Rate: regular rate Rhythm: regular rhythm GI Palpation: soft and nontender Back/Spine/Pelvis Back: No back tenderness Skin General skin exam: no rashes or lesions noted Neuro General: patient alert, patient awake, patient oriented x3, moves all extremities and no focal motor deficits Cranial Nerves: CN's II-XI intact bilaterally Cognition: normal cognition Speech: speech normal Gait: normal gait Motor: muscle tone normal throughout and strength 5/5 throughout Sensory Exam: no sensory deficits noted Extrem General: full ROM, capillary refill normal and pedal edema bilaterally (1+ pitting edema) Psych Appearance: grossly normal Mental Status: mental status grossly normal Course Vital Signs Vital signs: Vital Signs Temperature 36.6 C 12/27/19 11:12 Pulse 72 12/27/19 11:12 Respiratory Rate 19 07/30/20 11:12 Blood Pressure 137/78 12/27/19 11:12 Pulse Oximetry 100 12/27/19 11:12 Temperature 36.6 C 12/27/19 11:12 Temperature Source Skin 12/27/19 11:12 Pulse 63 12/27/19 11:32 Pulse 60 12/27/19 11:50 Respiratory Rate 22 12/27/19 11:50 Respiratory Effort 12/27/19 11:12 Respiratory Depth Normal 12/27/19 11:24 Respiratory Pattern Normal 12/27/19 11:24 Blood Pressure 147/54 H 12/27/19 11:32 Blood Pressure Mean 77 12/27/19 11:32 Pulse Oximetry 98 12/27/19 11:50 Oxygen Delivery Method Room Air 12/27/19 11:12 Oxygen Flow Rate 0 12/27/19 11:12 Pain Level 6 12/27/19 11:12 Lab/Test Results Lab/Test Results: Laboratory Tests Range/Units 12/27/19 12/27/19 12/27/19 11:25 11:25 11:25 WBC (4.4-10.8) 10^3/uL 10.42 RBC (3.93-5.22) 10^6/uL 3.73 L Hgb (11.2-15.7) g/dL 10.5 L Hct (36.0-46.0) % 34.2 L MCV (80-95) fL 91.7 MCH (27.0-33.0) pg 28.2 MCHC (32.0-36.0) % 30.7 L RDW (11.7-14.6) % 14.8 H Plt Count (130-400) 10^3/uL 293 MPV (8.0-11.0) fL 9.3 Immature Gran % 0.7 Neutrophils % 82.0 Lymphocytes % 9.6 Monocytes % 5.0 Eosinophils % 2.1 Basophils % 0.6 Absolute Neutrophils (1.2-6.7) 10^3/uL 8.55 H Absolute Lymphocytes (1.2-3.4) 10^3/uL 1.00 L Absolute Monocytes (0.1-0.8) 10^3/uL 0.52 Absolute Eosinophils (0.0-0.7) 10^3/uL 0.22 Absolute Basophils (0.0-0.2) 10^3/uL 0.06 PT (9.3-11.0) sec 10.6 INR (0.9-1.1) 1.1 APTT (21.0-31.4) sec 21.4 Sodium (136-145) mmol/L 136 Potassium (3.5-5.1) mmol/L 4.3 Chloride (98-107) mmol/L 101 Carbon Dioxide (21.0-32.0) mmol/L 25.7 Anion Gap (3-11) mmol/L 9.3 BUN (7-18) mg/dL 54 H Creatinine (0.55-1.02) mg/dL 1.83 H Estimated GFR/1.73 m2 (mL/min/1.73m2) 26.36 Glucose (74-106) mg/dL 105 Calcium (8.5-10.1) mg/dL 10.1 Magnesium (1.8-2.4) mg/dL 2.4 Total Bilirubin (0.2-1.0) mg/dL 0.4 AST (15-37) U/L 21 ALT (14-59) U/L 19 Alkaline Phosphatase (46-116) U/L 59 Troponin I (<0.06) ng/mL < 0.05 NT-Pro-B Natriuret Pep (<300) pg/mL 2063 H Total Protein (6.4-8.2) g/dL 7.8 Albumin (3.4-5.0) g/dL 3.8
== END 2019-12-27 14:03 | disposition home or self-care (01) ==
PROVIDERS: Emergency Provider Physician Assistant; PCP Specialist/Technologist Athletic Trainer
DX: I13.0 Hypertensive heart and chronic kidney disease with heart failure and stage 1 through stage 4 chronic kidney disease, or unspecified chronic kidney disease (principal); I50.9 Heart failure, unspecified; N18.9 Chronic kidney disease, unspecified; R06.00 Dyspnea, unspecified; Z95.810 Presence of automatic (implantable) cardiac defibrillator; I48.0 Paroxysmal atrial fibrillation; J44.9 Chronic obstructive pulmonary disease, unspecified; E27.40 Unspecified adrenocortical insufficiency
CPT/HCPCS: 36415; 80053; 93005; 99285; 71046; 83735; 83880; 84484; 85025; 85610; 85730; 93010

== ENCOUNTER 2020-01-03 01:44 | Outpatient (CLI) | payer MEDICARE, SELFPAY ==
[2020-01-03 10:26] LABS: Anion Gap 6.7 mmol/L (3-11); BUN 50 mg/dL (7-18); CO2 30.3 mmol/L (21.0-32.0); CREATININE 1.95 mg/dL (0.55-1.02); Calcium 10.4 mg/dL (8.5-10.1); Chloride 101 mmol/L (98-107); Glucose 103 mg/dL (74-106); Potassium 4.1 mmol/L (3.5-5.1); Sodium 138 mmol/L (136-145)
== END 2020-01-03 02:04 ==
PROVIDERS: PCP Specialist/Technologist Athletic Trainer; Visit Provider Physician Assistant
DX: I50.9 Heart failure, unspecified (principal)
CPT/HCPCS: 36415; 80048

== ENCOUNTER → 2020-01-15 09:33 | Outpatient (BNVA) | payer MEDICARE, SELFPAY | PROVIDERS: PCP Specialist/Technologist Athletic Trainer; Visit Provider Internal Medicine Cardiovascular Disease | DX: I48.0 Paroxysmal atrial fibrillation (principal); I50.9 Heart failure, unspecified; N18.9 Chronic kidney disease, unspecified; Z95.0 Presence of cardiac pacemaker; I13.0 Hypertensive heart and chronic kidney disease with heart failure and stage 1 through stage 4 chronic kidney disease, or unspecified chronic kidney disease; J44.9 Chronic obstructive pulmonary disease, unspecified | CPT/HCPCS: 99213 ==

== ENCOUNTER 2020-01-17 20:56 | Outpatient (REF) | payer MEDICARE, SELFPAY ==
[2020-01-17 19:43] LABS: Anion Gap 11.2 mmol/L (3-11); BUN 67 mg/dL (7-18); CO2 25.8 mmol/L (21.0-32.0); CREATININE 2.42 mg/dL (0.55-1.02); Calcium 10.1 mg/dL (8.5-10.1); Chloride 99 mmol/L (98-107); Glucose 64 mg/dL (74-106); Magnesium 2.5 mg/dL (1.8-2.4); Potassium 4.6 mmol/L (3.5-5.1); Sodium 136 mmol/L (136-145)
[2020-01-17 20:00] LABS: Vitamin D 25 Total 36.4 ng/ml (30-100)
== END 2020-01-17 21:16 ==
LOC: NCHCN 20:56
PROVIDERS: PCP Nurse Practitioner Family; Visit Provider Nurse Practitioner Family
DX: N18.4 Chronic kidney disease, stage 4 (severe) (principal); R79.89 Other specified abnormal findings of blood chemistry; I10 Essential (primary) hypertension
CPT/HCPCS: 80048; 82306; 83735

== ENCOUNTER 2020-01-24 20:02 | Outpatient (REF) | payer MEDICARE, SELFPAY ==
[2020-01-24 20:22] LABS: Anion Gap 11.5 mmol/L (3-11); BUN 58 mg/dL (7-18); CO2 24.5 mmol/L (21.0-32.0); CREATININE 2.13 mg/dL (0.55-1.02); Calcium 10.5 mg/dL (8.5-10.1); Chloride 99 mmol/L (98-107); Estimated GFR 22.13 (mL/min/1.73m2); Glucose 60 mg/dL (74-106); Sodium 135 mmol/L (136-145)
== END 2020-01-24 20:22 ==
LOC: NCHCN 20:02
PROVIDERS: PCP Nurse Practitioner Family; Visit Provider Nurse Practitioner Family
DX: N18.3 Chronic kidney disease, stage 3 (moderate) (principal)
CPT/HCPCS: 80048

== ENCOUNTER 2020-01-31 12:43 | Outpatient (REF) | payer MEDICARE, SELFPAY ==
[2020-01-31 14:16] LABS: Anion Gap 12.3 mmol/L (3-11); BUN 47 mg/dL (7-18); CO2 24.7 mmol/L (21.0-32.0); CREATININE 2.63 mg/dL (0.55-1.02); Calcium 10.2 mg/dL (8.5-10.1); Chloride 102 mmol/L (98-107); Estimated GFR 17.35 (mL/min/1.73m2); Glucose 91 mg/dL (74-106); Sodium 139 mmol/L (136-145)
== END 2020-01-31 13:03 ==
LOC: NCHCN 12:43
PROVIDERS: PCP Nurse Practitioner Family; Visit Provider Nurse Practitioner Family
DX: I50.33 Acute on chronic diastolic (congestive) heart failure (principal)
CPT/HCPCS: 80048

== ENCOUNTER → 2020-02-26 09:51 | Outpatient (BNVA) | payer MEDICARE, SELFPAY | PROVIDERS: PCP Nurse Practitioner Family; Referring Provider Specialist/Technologist Athletic Trainer; Visit Provider Internal Medicine Cardiovascular Disease | DX: I50.30 Unspecified diastolic (congestive) heart failure (principal); N18.9 Chronic kidney disease, unspecified; I48.91 Unspecified atrial fibrillation; I13.0 Hypertensive heart and chronic kidney disease with heart failure and stage 1 through stage 4 chronic kidney disease, or unspecified chronic kidney disease; Z79.01 Long term (current) use of anticoagulants; J44.9 Chronic obstructive pulmonary disease, unspecified | CPT/HCPCS: 99214 ==

== ENCOUNTER 2020-02-26 21:28 | Outpatient (REF) | payer MEDICARE, SELFPAY ==
[2020-02-26 20:40] LABS: Anion Gap 11.1 mmol/L (3-11); BUN 55 mg/dL (7-18); CO2 23.9 mmol/L (21.0-32.0); CREATININE 2.61 mg/dL (0.55-1.02); Calcium 10.1 mg/dL (8.5-10.1); Chloride 101 mmol/L (98-107); Estimated GFR 17.46 (mL/min/1.73m2); Glucose 113 mg/dL (74-106); NT-proBNP 1536 pg/mL (<300); Potassium 4.8 mmol/L (3.5-5.1); Sodium 136 mmol/L (136-145)
== END 2020-02-26 21:48 ==
LOC: LBN 21:28
PROVIDERS: PCP Nurse Practitioner Family; Visit Provider Nurse Practitioner Family
DX: I50.33 Acute on chronic diastolic (congestive) heart failure (principal); N18.3 Chronic kidney disease, stage 3 (moderate)
CPT/HCPCS: 80048; 83880

== ENCOUNTER → 2020-03-04 10:23 | Outpatient (BNVA) | payer MEDICARE, SELFPAY | PROVIDERS: PCP Nurse Practitioner Family; Referring Provider Nurse Practitioner Family; Visit Provider Internal Medicine Cardiovascular Disease | DX: I48.0 Paroxysmal atrial fibrillation (principal); I13.0 Hypertensive heart and chronic kidney disease with heart failure and stage 1 through stage 4 chronic kidney disease, or unspecified chronic kidney disease; N18.9 Chronic kidney disease, unspecified; I50.30 Unspecified diastolic (congestive) heart failure; Z95.0 Presence of cardiac pacemaker; J44.9 Chronic obstructive pulmonary disease, unspecified | CPT/HCPCS: 99214 ==

== ENCOUNTER → 2020-03-14 09:42 | Outpatient (BNVA) | payer MEDICARE, SELFPAY | PROVIDERS: PCP Nurse Practitioner Family; Referring Provider Nurse Practitioner Family; Visit Provider Internal Medicine Cardiovascular Disease | DX: I50.33 Acute on chronic diastolic (congestive) heart failure (principal); I48.91 Unspecified atrial fibrillation; N18.9 Chronic kidney disease, unspecified; I13.0 Hypertensive heart and chronic kidney disease with heart failure and stage 1 through stage 4 chronic kidney disease, or unspecified chronic kidney disease; Z95.0 Presence of cardiac pacemaker; Z79.01 Long term (current) use of anticoagulants | CPT/HCPCS: 99214 ==

== ENCOUNTER 2020-03-14 10:35 | Inpatient (IN) | payer MEDICARE, SELFPAY ==
[2020-03-14 11:47] LABS: Abs Immature Grans 0.09 10^3/uL (0.0-0.06); Absolute Lymphocyte Count 1.09 10^3/uL (1.2-3.4); Absolute Monocyte Count 0.69 10^3/uL (0.1-0.8); Absolute Neutrophil Count 10.19 10^3/uL (1.2-6.7); Basophils % 0.6; Eosinophils % 3.3; HCT 33.9 % (36.0-46.0); HGB 10.1 g/dL (11.2-15.7); Immature Grans % 0.7; Lymphocytes % 8.7; MCH 28.1 pg (27.0-33.0); MCHC 29.8 % (32.0-36.0); MCV 94.4 fL (80-95); MPV 9.4 fL (8.0-11.0); Monocytes % 5.5; Neutrophils % 81.2; Nucleated RBC 0 %; Platelet Count 312 10^3/uL (130-400); RBC 3.59 10^6/uL (3.93-5.22); RDW 15.9 % (11.7-14.6); RDW-SD 55.5 fL; WBC 12.55 10^3/uL (4.4-10.8)
[2020-03-14 11:52] LABS: Absolute Basophil Count 0.08 10^3/uL (0.0-0.2); Absolute Eosinophil Count 0.41 10^3/uL (0.0-0.7)
[2020-03-14 12:03] LABS: Anion Gap 9.6 mmol/L (3-11); BUN 35 mg/dL (7-18); CO2 27.4 mmol/L (21.0-32.0); CREATININE 1.85 mg/dL (0.55-1.02); Calcium 10.4 mg/dL (8.5-10.1); Chloride 105 mmol/L (98-107); Estimated GFR 25.97 (mL/min/1.73m2); Glucose 94 mg/dL (74-106); Sodium 142 mmol/L (136-145); Troponin I < 0.05 ng/mL (<0.06)
[2020-03-14 12:09] VITALS: BP 159/78; PULSE 63; RESP 18; TEMP 36.9; O2SAT 98
[2020-03-14 12:12] LABS: Magnesium 2.4 mg/dL (1.8-2.4); NT-proBNP 5160 pg/mL (<300)
[2020-03-14 12:15] LABS: TSH (W/Ref FT4) 1.34 uIU/mL (0.36-3.74)
--- NOTE | 2020-03-14 12:15 | RT.EKG_ITS ---
APPROVED REPORT Exam: Resting ECG Patient Location: I HR:65 bpm ECG Measurements Heart Rate 65 AXIS WA 218 P 0 QRSd 99 QRS -2 QT 414 T 73 QTc 430 Conclusion Sinus rhythm .normal P axis, V-rate 60- 99 Borderline prolonged WA interval...WA >212, V-rate 50- 90 Probable anterior infarct, age indeterminate...Q >35mS, T neg, V2-V5
[2020-03-14 12:20] VITALS: BP 159/78; PULSE 63; RESP 18; TEMP 36.9; O2SAT 98
--- NOTE | 2020-03-14 13:05 | HPE_ITS ---
Date of service: 03/14/20 Time of Service: 13:05 Assessment and Plan Assessment and plan (1) Acute on chronic diastolic CHF (congestive heart failure), NYHA class 1: Status: Acute Assessment and plan: Admit for intravenous furosemide infusion. Monitor I/O's, daily weights, Cr, lytes. Monitor on tele to ensure that the patient's Afib does not periodically become rapid. (2) Acute kidney injury superimposed on chronic kidney disease: Status: Acute Assessment and plan: Cr is actually better today than it was on 02/26/2020, but this is in setting of hemodilution. We will carefully monitor Cr while diuresing. I expect it to improve on lasix gtt as she also has pulmonary hypertension. (3) Pulmonary hypertension: Status: Chronic Assessment and plan: As above (4) Adrenal insufficiency: Status: Chronic Assessment and plan: Continue prednisone. (5) PAF (paroxysmal atrial fibrillation): Status: Chronic Assessment and plan: Presently in NSR. Does have a pacemaker which is firing even when the patient has P waves. This is a benign finding, and importantly, the pacemaker never misses a place where it needs to fire the there are no p waves. Continue to monitor on tele. Continue metoprolol, eliquis. (6) Presence of permanent cardiac pacemaker: Status: Chronic Assessment and plan: As above. Adjustments will likely need to be made to sensing - can be done as outpatient. (7) Bullous pemphigoid: Status: Chronic Assessment and plan: Appears controlled at this time. The patient is on prednisone - we will continue it, but verify dose. (8) DVT prophylaxis: Status: Acute Assessment and plan: On therapeutic eliquis (9) Discharge planning issues: Status: Acute Assessment and plan: DNR/DNI Anticipate 96 hour admission. History of Present Illness History of Present Illness Chief Complaint: Direct admission at the request of Dr Cramer; failure of outpatient tx Narrative: Ms Win is an 85 year old fem jazmyne with PMHx of chronic diastolic CHF as well as pulmonary hypertension, paroxysmal atrial fibrillation on eliquis, SSS (?) s/p pacer, and CKD stage IV, who is being directly admitted to [facility] hospitalist service today from the cardiology clinic at the request of Dr Cramer for acute on chronic diastolic CHF which failed outpatient diuresis. Her dry weight is close to 54 kg, but she weighs 59.7 kg today. Her spironolactone had to be stopped as outpatient due to worsening kidney function, but her torsemide was increased last week, failing to result in any additional diuresis. Hospitalists were asked to admit the patient for intravenous diuresis. The patient is afebrile and saturating 98% on room air. The patient reports having worsening shortness of breath, 2 pillow orthopnea, PND, GUZMAN, nonproductive cough and worsening edema of her BLE's, despite strict adherence to a low sodium diet and elevating her legs. She denies fever, chest pains, palpitations, nausea. She already feels a lot better at the time of my exam. Review of Systems All systems reviewed & are unremarkable except as noted in HPI and below PFSH Medical History (Updated 03/14/20 @ 15:26 by Constanza Schultz MD) Asthma Asthma Atrial fibrillation Bullous pemphigoid CHF (congestive heart failure) CHF (congestive heart failure) Chronic kidney disease CKD (chronic kidney disease) COPD (chronic obstructive pulmonary disease) Depression HTN (hypertension) Hypercalcemia Hypertension MRSA cellulitis PAF (paroxysmal atrial fibrillation) Presence of permanent cardiac pacemaker Pulmonary hypertension Surgical History AICD (automatic cardioverter/defibrillator) present H/O thoracic aortic aneurysm repair History of thoracic aortic aneurysm repair Pacemaker Social History Smoking/Tobacco Use Status: Never Alcohol Intake: never Substance use type: does not use Do you feel safe at home: Yes Do you feel safe in your relationship?: Yes Meds Home Medications and Allergies Home Medications Medication Instructions Recorded Confirmed Type Eliquis 2.5 mg PO BID tab-cap 09/17/16 03/14/20 History metoprolol tartrate 25 mg PO BID tab-cap 09/17/16 03/14/20 History Breo Ellipta 1 inh INHALATION DAILY 09/01/18 03/14/20 History albuterol sulfate 90 mcg/actuation 2 puff IH Q4H PRN gm 10/30/18 03/14/20 History aerosol inhaler sennosides 8.6 mg tablet 8.6 mg PO HS PRN tab 10/30/18 03/14/20 History polyethylene glycol 3350 17 gram 17 g PO DAILY PRN each 11/27/18 03/14/20 History oral powder packet docusate sodium 100 mg capsule 100 mg PO TID PRN cap 06/13/19 03/14/20 History pantoprazole 40 mg PO DAILY 07/17/19 03/14/20 History theophylline 200 mg PO DAILY 07/17/19 03/14/20 History clonidine HCl 0.1 mg tablet 0.1 mg PO QHS 12/03/19 03/14/20 History potassium chloride 20 mEq 20 meq PO Q2D tab 12/21/19 03/14/20 History tablet,extended release(part/cryst) prednisone 2.5 mg tablet 5 mg PO DAILY tab 12/21/19 03/14/20 History losartan 25 mg tablet 25 mg PO DAILY #30 tab 12/28/19 03/14/20 Rx torsemide 20 mg tablet 60 mg PO DAILY #180 tab 02/26/20 03/14/20 Rx isosorbide mononitrate 30 mg 30 mg PO DAILY #90 tab 03/10/20 03/14/20 Rx tablet,extended release 24 hr Allergies Allergy/AdvReac Type Severity Reaction Status Date / Time adhesive Allergy Verified 03/14/20 09:44 gluten Allergy Verified 03/14/20 09:44 pork derived (porcine) Allergy Verified 03/14/20 09:44 dapsone AdvReac dizziness, Verified 03/14/20 09:44 headache, nausea coumadin Allergy Uncoded 03/14/20 09:44 dairy Allergy Uncoded 03/14/20 09:44 eggs Allergy Uncoded 03/14/20 09:44 flu vaccine Allergy Uncoded 03/14/20 09:44 tape Allergy Uncoded 03/14/20 09:44 Exam Narrative Exam Narrative: General: Pleasant, elderly female, A&Ox3, sitting comfortably in bed at about 60 degree angle though mild dyspnea is noted when talking on room air, but able to complete full sentences without stopping to breathe. Neurological: A&Ox3, slight disconjugate gaze, MMM Psychiatric: Appropriate speech pattern/content Skin: Multiple areas of prior skin tears; thin skin HEENT: Atraumatic, normocephalic slightly disconjugate gaze Cardiovascular: RRR, no m/r/g Lungs: crackles B lower lung butler, about [address] lungs Gastrointestinal: soft, nontender, nondistended Genitourinary: has a weaver catheter - very dilute fluid present, about 1000 cc Extremities: 2+ BLE up to knees; slight edeam of B hands noted as well. Results Imaging Additional studies: CXR: 1. Right basilar infiltrate. 2. Possible small right pleural effusion. 3. Cardiomegaly. EKG: HR 64, baseline rhythm is NSR, but I do see atrial pacer spikes, sometimes in the middle of a P wave, sometimes after a P wave, sometimes before. Labs Result diagrams: 03/14/20 11:30 03/14/20 11:30 Labs: Laboratory Results - last 24 hr 03/14/20 03/14/20 03/14/20 11:30 11:30 11:30 WBC 12.55 H RBC 3.59 L Hgb 10.1 L Hct 33.9 L MCV 94.4 MCH 28.1 MCHC 29.8 L RDW 15.9 H Plt Count 312 MPV 9.4 Immature Gran % 0.7 Neutrophils % 81.2 Lymphocytes % 8.7 Monocytes % 5.5 Eosinophils % 3.3 Basophils % 0.6 Nucleated RBC % 0 Absolute Neutrophils 10.19 H Absolute Lymphocytes 1.09 L Absolute Monocytes 0.69 Absolute Eosinophils 0.41 Absolute Basophils 0.08 Sodium 142 Potassium 4.0 Chloride 105 Carbon Dioxide 27.4 Anion Gap 9.6 BUN 35 H Creatinine 1.85 H Estimated GFR/1.73 m2 25.97 Glucose 94 Calcium 10.4 H Magnesium 2.4 Troponin I < 0.05 NT-Pro-B Natriuret Pep 5160 H TSH 03/14/20 11:30 WBC RBC Hgb Hct MCV MCH MCHC RDW Plt Count MPV Immature Gran % Neutrophils % Lymphocytes % Monocytes % Eosinophils % Basophils % Nucleated RBC % Absolute Neutrophils Absolute Lymphocytes Absolute Monocytes Absolute Eosinophils Absolute Basophils Sodium Potassium Chloride Carbon Dioxide Anion Gap BUN Creatinine Estimated GFR/1.73 m2 Glucose Calcium Magnesium Troponin I NT-Pro-B Natriuret Pep TSH 1.34 Last Vital Signs Temp 36.9 C 03/14/20 12:20 Pulse 63 03/14/20 12:20 Resp 18 03/14/20 12:20 BP 159/78 H 03/14/20 12:20 Pulse Ox 98 03/14/20 12:20 COVID-19 Screening Have you,or household,traveled outside [place] in last 14 days?: No Had IN PERSON contact w/suspected or confirmed C-19 person: No
--- NOTE | 2020-03-14 13:26 | DI.RAD_ITS ---
EXAM: XR PORTABLE CHEST AP CLINICAL HISTORY: CHF TECHNIQUE: 2D digital imaging was performed. COMPARISON: CR XR PORTABLE CHEST AP from 07/17/2019 CR XR CHEST 2V PA LATERAL from 12/27/2019 FINDINGS: MEDIASTINUM: Normal. HEART: Cardiomegaly. PULMONARY VASCULATURE: Normal. LUNGS: Increased markings in the right lung base. There does appear to be some degree of prior paren chymal scarring in this region. A superimposed infiltrate cannot be excluded. PLEURAL SPACE: A small right pleural effusion cannot be excluded. BONE:Within normal limits for the patient's age. Sternotomy. OTHER FINDINGS:Stable cardiac pacing wires. IMPRESSION: 1. Right basilar infiltrate. 2. Possible small right pleural effusion. 3. Cardiomegaly. DATA REPOSITORY: RADIATION DOSE DELIVERED:
--- NOTE | 2020-03-14 14:29 | PT.INIE ---
Date of service: 03/14/20 Time of Service: 14:15 PT Notes Visit Reasons: ACUTE ON CHRONIC DIASTOLIC CHF, PULMONARY HTN, CKD Inpatient Physical Therapy Evaluation Date: 03/14/2020 Referring Doctor: Constanza Schultz PT Orders: PT CONSULT: Limited Ability Precautions: Standard Patient Profile/Admitting Diagnosis: Patient admitted 03/14 by electronics processor for management of acute on chronic diastolic CHF, which failed to outpatient diuresis. PMHX: Medical History (Updated 03/14/20 @ 13:20 by Constanza Schultz MD) Asthma Asthma Atrial fibrillation Bullous pemphigoid CHF (congestive heart failure) CHF (congestive heart failure) Chronic kidney disease CKD (chronic kidney disease) COPD (chronic obstructive pulmonary disease) Depression HTN (hypertension) Hypercalcemia Hypertension MRSA cellulitis PAF (paroxysmal atrial fibrillation) Presence of permanent cardiac pacemaker Pulmonary hypertension Surgical History AICD (automatic cardioverter/defibrillator) present H/O thoracic aortic aneurysm repair History of thoracic aortic aneurysm repair Pacemaker Social History/Home Situation: Lives with daughter in a private two-story home, but reside on on floor. 2 steps to enter with one rail. Independent with all self care and ADL's. No longer drives. Current Functional Limitations: None Equipment Owned/DME: Walker, cane, but does not use them. Subjective: Feels fine aside from fluid accumulation. Prior to electronics processor apt this morning she had been independently functioning. Objective: General Observation: Lying in hospital bed, reading. In no distress, good color. Weaver. IV left cubital fossa. Mental Status: A & O x3 Pain: 0/10 Vital Signs: BP 159/78, HR 63, O2 sat on room air 98% ROM: Right Upper Extremity: WNL Left Upper Extremity: WNL Right Lower Extremity: WNL Left Lower Extremity: WNL Strength: Right Upper Extremity: Grossly 4/5 Left Upper Extremity: Grossly 4/5 Right Lower Extremity: Grossly 5/5 Left Lower Extremity: Grossly 5/5 Sensation: WNL Bed Mobility/Transfers: Independent Gait: WNL, no AD Balance: Static Sitting: Good Dynamic Sitting: Good Static Standing: Good Dynamic Standing: Good Stage 4: Pass Special Tests: Mobility Limitations Standardized Measure [facility] 6 clicks Basic Mobility Inpatient Short Form: Raw Score: CMS Score: 0% disability Informed Consent/Education: Patient instructed in purpose of PT consult and plan of care. Assessment: Patient is a 85 year old female referred to physical therapy services with the diagnosis of acute on chronic CHF in need of IV treatment for diuresis. Patient presents with clinical signs and symptoms consistent with referred diagnosis, without impairment level findings from a PT standpoint, and no functional limitations. She remains at premorbid level of function, with AMPAC score of 0%. Patient advised on proper transport of weaver and IV pole for safe independent ambulation, while staying at hospital for IV treatment. She is not appropriate for inpatient PT care. Patient is assessed as a Low History: See comorbidities Examination: No impairments or functional limitations Presentation: Low Decision Making: Easy Goals: ALL MET, as of today. Goals X1 week 1. Supine-Sit I 2. Sit-Supine I 3. Sit-Stand I 4. Stand-Sit I 5. Bed-Chair I 6. Chair-Bed I 7. Gait I 8. Stairs I 9. Independent with home exercise program I 10. Balance Good Plan of Care/Treatment Plan: 1-2x/day, 7 days/week x 1 week. Plan of care has been reviewed with the MINE MANAGER providing the service under Physical Therapy direction. Initiate Physical Therapy intervention for strengthening, bed mobility, transfers, gait, stairs, balance training, use of assistive device. DISCHARGE RECOMMENDATIONS: Home with daughter. TREATMENT CODE/TIME: 15 min, 85109, 13:15 - 13:30.
[2020-03-14 15:03] LABS: Troponin I < 0.05 ng/mL (<0.06)
[2020-03-14 16:25] LABS: Bilirubin Negative (Negative); Blood Trace-intact (Negative); Clarity Clear (Clear); Glucose Negative (Negative); Ketones Negative (Negative); Leukocyte Esterase Negative (Negative); Nitrite Negative (Negative); Urobilinogen 0.2 EU/dL (Up TO 0.2); pH 7.5 (5-8)
[2020-03-14 16:32] VITALS: BP 169/83; PULSE 65; RESP 15; TEMP 36.7; O2SAT 100
[2020-03-14 16:42] LABS: Bacteria Negative HPF (Negative); C & S Indicated? No; Crystals Negative HPF (Negative); Epithelial Cells Negative HPF (Negative); Mucus Negative (Negative); WBC Negative HPF (0-5)
[2020-03-14 19:54] VITALS: BP 138/79; PULSE 64; RESP 16; TEMP 36.1; O2SAT 98
[2020-03-14] MEDS: Metoprolol 25 MG TAB PO (19:58)
[2020-03-14] MEDS: Apixaban 2.5 MG TAB PO (19:58)
[2020-03-14] MEDS: Budesonide/Formoterol 80/4.5 6.9 GM 60 PUFF INH IH (19:58)
[2020-03-14] MEDS: Normal Saline Flush 10 ML SYR IVP (19:59)
[2020-03-14] MEDS: cloNIDine 0.1 MG TAB PO (21:32)
[2020-03-15 01:05] VITALS: BP 126/66; PULSE 60; RESP 17; TEMP 36.2; O2SAT 99
[2020-03-15 04:06] VITALS: BP 115/71; PULSE 67; RESP 18; TEMP 36.2; O2SAT 98
[2020-03-15 07:45] LABS: Anion Gap 10.4 mmol/L (3-11); BUN 32 mg/dL (7-18); CO2 28.6 mmol/L (21.0-32.0); CREATININE 1.63 mg/dL (0.55-1.02); Calcium 10.5 mg/dL (8.5-10.1); Chloride 100 mmol/L (98-107); Estimated GFR 30.06 (mL/min/1.73m2); Glucose 82 mg/dL (74-106); Magnesium 2.2 mg/dL (1.8-2.4); Potassium 3.3 mmol/L (3.5-5.1); Sodium 139 mmol/L (136-145); Troponin I < 0.05 ng/mL (<0.06)
[2020-03-15 08:01] LABS: COVID-19 RT-PCR UVMMC Result Negative (Negative)
[2020-03-15] MEDS: Losartan 25 MG TAB PO (08:26)
[2020-03-15] MEDS: predniSONE 5 MG TAB PO (08:26)
[2020-03-15] MEDS: Pantoprazole 40 MG TABCR PO (08:26)
[2020-03-15] MEDS: Isosorbide Mononitrate 30 MG TABCR PO (08:27)
[2020-03-15] MEDS: Metoprolol 25 MG TAB PO ×2 (08:27→20:00)
[2020-03-15] MEDS: Apixaban 2.5 MG TAB PO ×2 (08:27→20:00)
[2020-03-15] MEDS: Budesonide/Formoterol 80/4.5 6.9 GM 60 PUFF INH IH ×2 (10:54→20:00)
[2020-03-15 11:35] VITALS: BP 119/75; PULSE 61; RESP 17; TEMP 36.7; O2SAT 98
--- NOTE | 2020-03-15 15:46 | PGE_ITS ---
Date of Service Date of service: 03/15/20 Time of Service: 15:46 Assessment and Plan Assessment and plan (1) Acute on chronic diastolic CHF (congestive heart failure), NYHA class 1: Status: Acute Assessment and plan: Improving diuresis with furosemide drip. Renal function is improving as well. Continue to monitor intake and output with Nieves catheter. Repeat BMP in the morning. May switch from IV Lasix to oral loop diuretic tomorrow. (2) Acute kidney injury superimposed on chronic kidney disease: Status: Acute Assessment and plan: Continue to monitor urine output and BMP. Renal functions improving as her CHF improves. (3) Pulmonary hypertension: Status: Chronic Assessment and plan: As above (4) Adrenal insufficiency: Status: Chronic Assessment and plan: Continue prednisone. (5) PAF (paroxysmal atrial fibrillation): Status: Chronic Assessment and plan: Presently in NSR. Does have a pacemaker which is firing even when the patient has P waves. This is a benign finding, and importantly, the pacemaker never misses a place where it needs to fire the there are no p waves. Continue to monitor on tele. Continue metoprolol, eliquis. (6) Presence of permanent cardiac pacemaker: Status: Chronic Assessment and plan: As above. Can arrange pacemaker interrogation and follow-up with cardiology as an outpatient. (7) Bullous pemphigoid: Status: Chronic Assessment and plan: Appears controlled at this time. The patient is on prednisone - we will continue it (8) DVT prophylaxis: Status: Acute Assessment and plan: On therapeutic eliquis (9) Discharge planning issues: Status: Acute Assessment and plan: DNR/DNI Expect discharge to her home with home health care services in a couple of days. Patient currently lives with her daughter in [place], [place]. Subjective Subjective Interval history since last seen: Patient states that her breathing is improved over admission. Leg edema is improving. At rest she is not dyspneic and denies any pain. With activity she gets mildly dyspneic. She is not requiring any supplemental oxygen. Her weight is down by 0.8 kg. According nursing staff she diuresed about 1100 mL from 11 PM last night to 6 AM. On day shift she is diuresed over 1500 mL. She currently on Lasix drip at 5 mg an hour. Her BUN and creatinine have improved overnight from 35 and 1.85 down to 30-1.63 however she is now hypokalemic with a potassium level of 3.3. She is on oral potassium supplement but only 20 mEq of the other day. I will give her additional 30 mEq p.o. today and then start on 20 mEq daily. We will repeat her BMP in the morning. Continue current diuretic therapy. Patient has chronic diastolic heart failure with LVH as well as mild pulmonary hypertension. Exam Narrative Exam Narrative: Elderly female sitting in her chair alert and oriented person place time circumstance Lungs are clear anteriorly posteriorly she has bibasilar rales with the right side more so than the left side with the right side having coarse rales from the base to the lower one third. Heart is regular rate and rhythm Abdomen is soft and nontender Lower extremities with 1+ pitting edema Objective Last Vital Signs Temp 36.7 C 03/15/20 11:35 Pulse 61 03/15/20 11:35 Resp 17 03/15/20 11:35 BP 119/75 03/15/20 11:35 Pulse Ox 98 03/15/20 11:35 Laboratory Results - last 24 hr 03/14/20 03/14/20 03/15/20 10:16 12:40 07:05 Sodium 139 Potassium 3.3 L Chloride 100 Carbon Dioxide 28.6 Anion Gap 10.4 BUN 32 H Creatinine 1.63 H Estimated GFR/1.73 m2 30.06 Glucose 82 Calcium 10.5 H Magnesium 2.2 Troponin I < 0.05 Urine Color Yellow Urine Clarity Clear Urine pH 7.5 Ur Specific [place] 1.020 Urine Protein Negative Urine Ketones Negative Urine Blood Trace-intact H Urine Nitrite Negative Urine Bilirubin Negative Urine Urobilinogen 0.2 Ur Leukocyte Esterase Negative Urine RBC 3-5 H Urine WBC Negative Ur Epithelial Cells Negative Urine Crystals Negative Urine Bacteria Negative Urine Mucus Negative Ur Culture Indicated? No Urine Glucose Negative COVID-19 PCR Negative Nasopharyn COVID-19 PCR Not Applicable Ref Test Perform Site [facility] lab
[2020-03-15 16:03] VITALS: BP 105/54; PULSE 65; RESP 16; TEMP 37.3; O2SAT 95
[2020-03-15] MEDS: POTASSIUM CHLORIDE 20 MEQ, POTASSIUM CHLORIDE 10 MEQ 30 MEQ PO (16:55)
--- NOTE | 2020-03-15 18:35 | PDOC.CMIN ---
- If Service Date Differs Date of service: 03/15/20 Time of Service: 19:12 Care Management Initial Assess REASON FOR HOSPITALIZATION:: Acute on chronic diastolic CHF, pulmonary HTN, CKD PAST MEDICAL HISTORY/PAST SURGICAL HISTORY:: Hypercalcemia (Chronic). CHF (congestive heart failure) (Chronic). Presence of permanent cardiac pacemaker (Chronic). PAF (paroxysmal atrial fibrillation) (Chronic). Hypertension (Chronic). Pulmonary hypertension (Chronic). Asthma (Chronic). CKD (chronic kidney disease) (Chronic). Chronic kidney disease (Acute). Asthma (Chronic). Atrial fibrillation (Chronic). CHF (congestive heart failure) (Chronic). COPD (chronic obstructive pulmonary disease) (Chronic). Depression (Chronic). HTN (hypertension) (Chronic). History of thoracic aortic aneurysm repair (Chronic). AICD (automatic cardioverter/defibrillator) present (Acute). H/O thoracic aortic aneurysm repair (Acute). Pacemaker (Acute) PREVIOUS FUNCTIONAL STATUS/SOCIAL/FAMILY SUPPORTS:: Antonia resides with her daughter Orly in [place], [place] she has a room on ground level and two steps into her home. Her , Adolfo resides at [facility] in [place], [place]. Antonia used to see him almost daily and reports COVID has made things incredibly difficult on the family. She reports her daughter has brought Adolfo two tomatos everyday but she has been unable to go due to time requirements and PPE. She reports after 69 years of marriage this is the longest and hardest time for them, she remains upbeat and understanding. Antonia is normally independent, no DME and no services. Antonia does not drive and depends on her daughter, Orly for transportation. Antonia shares that her and Adolfo spent [place] in [place] since 1981 and traveled around in [place] prior to settling with their daughter so Adolfo could recieve shelter care for his progressing illness. Antonia reports that she has two other daughters and a son whom reside in [place] all of whom are supportive. CURRENT FUNCTIONAL STATUS:: Antonia was sitting up in her chair, pleasant in interaction and forthcoming with information. ADVANCE DIRECTIVES:: On file; Orly as POA and HC Agent, Jodee as alternate Has patient been provided with info about the portal/API?: Yes Did the patient sign up for the portal?: No CODE STATUS:: DNR/DNI INSURANCE COVERAGE / FINANCIAL ISSUES:: DAMIR, SHANIQUE CURRENT HOME/COMMUNITY SERVICES/EQUIPMENT:: None currently. PRIMARY CARE PHYSICIAN:: Cara Doll POTENTIAL DISCHARGE NEEDS:: Follow up appointment with PCP. PATIENT/FAMILY EDUCATION NEEDS:: Review discharge instructions, discuss Ask Me Three ANTICIPATED BARRIERS TO DISCHARGE:: None identified. TRANSPORTATION:: Via private vehicle with her daughter. PLAN:: Antonia will return home when ready per MD. She will follow up with her PCP and plan of care as prescribed. She willl transport via private vehicle with her daughter, Orly.
[2020-03-15] MEDS: Docusate Sodium 100 MG CAP PO (18:47)
[2020-03-15] MEDS: Polyethylene Glycol 3350 17 GM PACKET PO (18:47)
[2020-03-15] MEDS: Senna TAB 1 TAB PO (18:47)
[2020-03-15 19:37] VITALS: BP 111/66; PULSE 79; RESP 17; TEMP 37.1; O2SAT 97
[2020-03-15] MEDS: cloNIDine 0.1 MG TAB PO (21:05)
[2020-03-15 23:44] VITALS: BP 110/64; PULSE 80; RESP 17; TEMP 37; O2SAT 98
[2020-03-16 03:45] VITALS: BP 116/63; PULSE 71; RESP 18; TEMP 37.3; O2SAT 96
[2020-03-16] MEDS: Pantoprazole 40 MG TABCR PO (07:31)
[2020-03-16] MEDS: Acetaminophen 325 MG TAB 650 MG PO (07:34)
[2020-03-16 07:40] VITALS: BP 132/77; PULSE 85; RESP 17; TEMP 37.1; O2SAT 98
[2020-03-16] MEDS: Isosorbide Mononitrate 30 MG TABCR PO (08:14)
[2020-03-16] MEDS: Metoprolol 25 MG TAB PO ×2 (08:14→19:38)
[2020-03-16] MEDS: Losartan 25 MG TAB PO (08:14)
[2020-03-16] MEDS: predniSONE 5 MG TAB PO (08:14)
[2020-03-16] MEDS: Apixaban 2.5 MG TAB PO ×2 (08:14→19:38)
[2020-03-16] MEDS: Potassium Chloride 20 MEQ TABCR PO (08:15)
[2020-03-16 08:34] LABS: Anion Gap 8.4 mmol/L (3-11); BUN 50 mg/dL (7-18); CO2 27.6 mmol/L (21.0-32.0); CREATININE 2.06 mg/dL (0.55-1.02); Calcium 10.4 mg/dL (8.5-10.1); Chloride 97 mmol/L (98-107); Estimated GFR 22.94 (mL/min/1.73m2); Glucose 90 mg/dL (74-106); NT-proBNP 1451 pg/mL (<300); Potassium 3.8 mmol/L (3.5-5.1); Sodium 133 mmol/L (136-145)
[2020-03-16] MEDS: Budesonide/Formoterol 80/4.5 6.9 GM 60 PUFF INH IH ×2 (08:39→19:38)
[2020-03-16] MEDS: Torsemide 20 MG TAB 60 MG PO (10:00)
[2020-03-16] MEDS: Normal Saline Flush 10 ML SYR IVP (10:00)
[2020-03-16 11:42] VITALS: BP 129/71; PULSE 69; RESP 17; TEMP 36.9; O2SAT 98
[2020-03-16 15:53] VITALS: BP 118/68; PULSE 76; RESP 18; TEMP 37; O2SAT 98
--- NOTE | 2020-03-16 16:13 | PGE_ITS ---
Date of Service Date of service: 03/16/20 Time of Service: 16:13 Assessment and Plan Assessment and plan (1) Acute on chronic diastolic CHF (congestive heart failure), NYHA class 1: Status: Acute Assessment and plan: Patient's had a slight uptick in her BUN and creatinine to 50 and 2.0. At this point I am discontinuing her furosemide drip and will resume her torsemide at 60 mg/day. This is equivalent to her 24-hour dose of furosemide 120 mg. I will repeat her BMP in the morning but otherwise I plan on discharging her to follow-up with her racking machine operator. (2) Acute kidney injury superimposed on chronic kidney disease: Status: Acute Assessment and plan: Continue to monitor urine output and BMP. Creatinine of 2.0 appears to be her homeostatic level (3) Pulmonary hypertension: Status: Chronic Assessment and plan: As above (4) Adrenal insufficiency: Status: Chronic Assessment and plan: Continue prednisone. (5) PAF (paroxysmal atrial fibrillation): Status: Chronic Assessment and plan: Sinus to sinus arrhythmia with occasional atrial pacing. Continue to monitor on tele. Continue metoprolol, eliquis. (6) Presence of permanent cardiac pacemaker: Status: Chronic Assessment and plan: As above. Can arrange pacemaker interrogation and follow-up with cardiology as an outpatient. (7) Bullous pemphigoid: Status: Chronic Assessment and plan: Appears controlled at this time. The patient is on prednisone - we will continue it (8) DVT prophylaxis: Status: Acute Assessment and plan: On therapeutic eliquis (9) Discharge planning issues: Status: Acute Assessment and plan: DNR/DNI Expect discharge to her home with home health care services in a couple of days. Patient currently lives with her daughter in [place], [place]. Subjective Subjective Interval history since last seen: Patient has no acute complaints. Dyspnea has improved. She has no chest pain or chest pressure. Her weight is down to 56.9 kg Which appears to be about her baseline. At this point I do not think she needs a furosemide drip any longer. Her intake and output cumulative is net - 5500 mL. Exam Narrative Exam Narrative: Elderly female sitting in her chair alert and oriented person place time circumstance Lungs are clear anteriorly. Posteriorly the left side is clear where is the right base still has rales. Heart is regular rate and rhythm Abdomen is soft and nontender Lower extremities without pitting edema. Objective Last Vital Signs Temp 37.0 C 03/16/20 15:53 Pulse 76 03/16/20 15:53 Resp 18 03/16/20 15:53 BP 118/68 03/16/20 15:53 Pulse Ox 98 03/16/20 15:53 Laboratory Results - last 24 hr 03/16/20 07:30 Sodium 133 L Potassium 3.8 Chloride 97 L Carbon Dioxide 27.6 Anion Gap 8.4 BUN 50 H D Creatinine 2.06 H Estimated GFR/1.73 m2 22.94 Glucose 90 Calcium 10.4 H NT-Pro-B Natriuret Pep 1451 H
--- NOTE | 2020-03-16 19:12 | CMPROGNOTE_ITS ---
Care Management Progress Note S/O: Antonia continues to diurese, and remains acute at this time. CM continues to follow. A: 85 year old female admitted to [facility] 03/14/20 for Acute on Chronic CHF, Pulmonary HTN, CKD P: Antonia will return home when ready per MD. She will follow up with her PCP and plan of care as prescribed. She willl transport via private vehicle with her daughter, Orly.
[2020-03-16 19:17] VITALS: BP 125/74; PULSE 81; RESP 18; TEMP 36.9; O2SAT 96
[2020-03-16] MEDS: cloNIDine 0.1 MG TAB PO (21:03)
[2020-03-17] VITALS (7 sets, daily range): BP systolic 101–152; BP diastolic 57–80; PULSE 59–79; RESP 16–22; TEMP 36.3–36.8; O2SAT 96–100
[2020-03-17] MEDS: Budesonide/Formoterol 80/4.5 6.9 GM 60 PUFF INH IH ×2 (08:12→19:35)
[2020-03-17] MEDS: Normal Saline Flush 10 ML SYR IVP ×2 (08:20→18:22)
[2020-03-17] MEDS: Isosorbide Mononitrate 30 MG TABCR PO (08:22)
[2020-03-17] MEDS: Torsemide 20 MG TAB 60 MG PO (08:22)
[2020-03-17] MEDS: Apixaban 2.5 MG TAB PO ×2 (08:23→19:35)
[2020-03-17] MEDS: Acetaminophen 325 MG TAB 650 MG PO ×2 (08:23→21:42)
[2020-03-17] MEDS: predniSONE 5 MG TAB PO (08:24)
[2020-03-17] MEDS: Potassium Chloride 20 MEQ TABCR PO (08:24)
[2020-03-17] MEDS: Metoprolol 25 MG TAB PO ×2 (08:24→19:35)
[2020-03-17] MEDS: Pantoprazole 40 MG TABCR PO (08:24)
[2020-03-17] MEDS: Losartan 25 MG TAB PO (08:25)
[2020-03-17] MEDS: Polyethylene Glycol 3350 17 GM PACKET PO (08:25)
--- NOTE | 2020-03-17 10:30 | DI.RAD_ITS ---
EXAM: XR CHEST 2V PA LATERAL CLINICAL HISTORY: evaluate RLL infiltrate vs chronic fibrosis TECHNIQUE: 2D digital imaging was performed. COMPARISON: CR XR CHEST 2V PA LATERAL from 07/25/2019 CR XR PORTABLE CHEST AP from 03/14/2020 FINDINGS: A pacemaker and sternal wires are again noted. Again noted are fibrotic changes and right-sided volu me loss. No superimposed infiltrate, effusion or pulmonary edema is seen. Degenerative changes and scoliosis are noted in the spine. The aorta is calcified but normal in diameter. IMPRESSION: Findings consistent with chronic fibrosis. No change when compared with previous exams. DATA REPOSITORY: RADIATION DOSE DELIVERED:
--- NOTE | 2020-03-17 10:35 | PDOC.CMDIS ---
LACE Index Scoring Tool - Questions: Length of Stay (in days): 3 Acuity (Admit via E.D.?): Yes Comorbidities: Chronic Pulmonary Disease E.D. Visits: 2 - Answers: Total Score: 10 Risk of Readmission: High Risk Care Management Discharge Reason for Hospitalization: Acute on chronic diastolic CHF, pulmonary HTN, CKD Discharge Plan: Antonia will return home when ready per MD. She will follow up with her PCP and plan of care as prescribed. She willl transport via private vehicle with her daughter, Orly. Patient/Family Education Needs: Review discharge instructions, discuss Ask Me Three.
[2020-03-17] MEDS: Azithromycin 250 MG TAB 500 MG PO (11:02)
--- NOTE | 2020-03-17 11:31 | W.PM.PROGNOT ---
Date of Service Date of service: 03/17/20 Time of Service: 11:31 Assessment and Plan Assessment and plan (1) Acute on chronic diastolic CHF (congestive heart failure), NYHA class 1: Status: Acute Assessment and plan: Patient's weight is now down 3 kg to 56.7 kg. From review of all of her previous weights this appears to be about her baseline dry weight. She has been as low as 54 kg last June but I think considering we have to balance her azotemia with her CHF I think 56 kg is an acceptable level. Patient initially did not have repeat labs ordered for this morning so I am since recheck them and she is azotemic with a BUN of 57 and a creatinine of 2.22. It is difficult to determine her baseline creatinine since she appears to have some chronic kidney disease. Her lowest creatinine was that upon admission at 1.63 and her highest was 2.63 on January 31, 2020. I think maintaining a creatinine of around 2.0 would be acceptable if we are able to maintain euvolemia. Likewise her BUN has fluctuated and has been as high as 83 back on December 13, 2019 but more recently her BUN has been fluctuating between the mid 30s to mid 50s. I suggested to the patient that she talk with Dr. Cramer about being referred to the pulmonary hypertension clinic at [facility] to be considered for implantation of a pulmonary hypertension monitoring device. I am not sure whether or not she is a candidate. She has a pacemaker in place and I am not sure whether that would prohibit implantation of a CardioMEMS device. Such a device may be helpful in monitoring early changes in her pulmonary pressures that would signal the development of acute CHF exacerbation. (2) Acute kidney injury superimposed on chronic kidney disease: Status: Acute Assessment and plan: Continue to monitor urine output and BMP. Creatinine of 2.0 appears to be her homeostatic level (3) Pulmonary hypertension: Status: Chronic Assessment and plan: As above (4) Adrenal insufficiency: Status: Chronic Assessment and plan: Continue prednisone. (5) PAF (paroxysmal atrial fibrillation): Status: Chronic Assessment and plan: Sinus to sinus arrhythmia with occasional atrial pacing. Continue to monitor on tele. Continue metoprolol, eliquis. (6) Presence of permanent cardiac pacemaker: Status: Chronic Assessment and plan: As above. Can arrange pacemaker interrogation and follow-up with cardiology as an outpatient. (7) Pulmonary fibrosis, unspecified: Status: Suspected Assessment and plan: Recommend follow-up outpatient high resolution CT of the chest and subsequent follow-up with her leadership development consultant. (8) Bullous pemphigoid: Status: Chronic Assessment and plan: Appears controlled at this time. The patient is on prednisone - we will continue it (9) DVT prophylaxis: Status: Acute Assessment and plan: On therapeutic eliquis (10) Discharge planning issues: Status: Acute Assessment and plan: DNR/DNI Expect discharge to her home with home health care services in a couple of days. Patient currently lives with her daughter in [place], [place]. Subjective Subjective Interval history since last seen: Overall the patient has improved with IV diuretics over the weekend. Her weight is down to 56.7 kg or about a 3 kg drop since admission on Tuesday. Patient's not dyspneic at rest but feels a little short of breath with activity. She has a moist cough that is now productive of a little bit yellowish purulent looking sputum. Review of her chest x-ray from last Tuesday demonstrated On a portable chest x-ray a right basilar infiltrate. However I have reviewed all of her previous chest x-rays dating back to March 05, 2016 and she has had a chronic volume loss in the right lung base and a persistent honeycomb appearance. I suspect that she has underlying pulmonary fibrosis. She has a longstanding history of asthma since childhood and has never smoked despite the fact she has a diagnosis on her chart of COPD. 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 She does not recall having any lung biopsies. I have reviewed her radiology files and I cannot find any high-resolution CT scans of her chest. I reviewed her most recent pulmonary consults and it appears that the interstitial process is always been blamed on her acute CHF exacerbations. Patient has history of bullous pemphigoid previously treated with dapsone and now chronically on low-dose prednisone. I cannot find any medications that she has been on that would lead to pulmonary fibrosis. Because of her leukocytosis on Tuesday and the radiologist reading of a right basilar infiltrate I held up her discharge today despite the fact that she is markedly improved from a CHF standpoint. I think because she is coughing up a little bit of purulent sputum I will start her on Zithromax and monitor her overnight while we repeat a PA and lateral chest x-ray as well as repeat her labs. I think if she has no deterioration in her respiratory status overnight and there are no unexpected findings on her labs or her repeat chest x-ray she can be discharged home in the morning with close follow-up by her belt notcher as well as her leadership development consultant. I think she should have a high resolution CT scan of her chest to more accurately characterize these focal right basilar densities. When I have reviewed her previous chest x-rays dating back in 2019 in 2018 there appears to be some honeycomb pattern to the right basilar densities that makes me suspect that this is pulmonary fibrosis. Furthermore when it is compared to her upper lobes and her left lower lobe these findings are not seen in these other areas of her lungs. Exam Narrative Exam Narrative: Elderly female sitting up in her chair alert and oriented person place time circumstance. Lungs with focalized rales at the right base Heart is regular rate and rhythm Lower extremities without cyanosis or edema Objective Last Vital Signs Temp 36.4 C L 03/17/20 11:11 Pulse 66 03/17/20 11:11 Resp 22 03/17/20 11:11 BP 152/70 H 03/17/20 11:11 Pulse Ox 97 03/17/20 11:11
--- NOTE | 2020-03-17 11:45 | W.NUTRFU ---
Date of service: 03/17/20 Time of Service: 11:46 Nutritional Follow up NOTE: 85 year old female admitted for acute kidney injury, with CKD and CHF. Allergic to gluten, dairy and eggs, dislikes pork. Following heart healthy diet. Dietary aware of allergies, and noted on meal ticket. BMI wnl. Weight has been stable > 1 year. Appears well nourished. Not at nutritional risk at this time. Time Spent in Nutritional Counseling and Treatment: 5 min spent face to face
[2020-03-17 11:55] LABS: Abs Immature Grans 0.13 10^3/uL (0.0-0.06); Absolute Basophil Count 0.08 10^3/uL (0.0-0.2); Absolute Eosinophil Count 0.51 10^3/uL (0.0-0.7); Absolute Monocyte Count 0.95 10^3/uL (0.1-0.8); Absolute Neutrophil Count 8.15 10^3/uL (1.2-6.7); Basophils % 0.7; Eosinophils % 4.7; HCT 35.1 % (36.0-46.0); HGB 10.8 g/dL (11.2-15.7); Immature Grans % 1.2; Lymphocytes % 10.1; MCH 28.3 pg (27.0-33.0); MCHC 30.8 % (32.0-36.0); MCV 91.9 fL (80-95); MPV 9.4 fL (8.0-11.0); Monocytes % 8.7; Neutrophils % 74.6; Nucleated RBC 0 %; Platelet Count 307 10^3/uL (130-400); RBC 3.82 10^6/uL (3.93-5.22); RDW 15.8 % (11.7-14.6); RDW-SD 52.6 fL; WBC 10.92 10^3/uL (4.4-10.8)
[2020-03-17 12:03] LABS: Anion Gap 8.5 mmol/L (3-11); BUN 57 mg/dL (7-18); CO2 28.5 mmol/L (21.0-32.0); CREATININE 2.22 mg/dL (0.55-1.02); Calcium 10.3 mg/dL (8.5-10.1); Chloride 97 mmol/L (98-107); Estimated GFR 21.04 (mL/min/1.73m2); Glucose 89 mg/dL (74-106); Potassium 4.5 mmol/L (3.5-5.1); Sodium 134 mmol/L (136-145)
[2020-03-17 12:44] LABS: Procalcitonin 0.3 ng/mL
--- NOTE | 2020-03-17 13:51 | PHA.REVIEW ---
Pharmacy Admission Review - Admission Clinical Review (Last Updated 03/15/20 @ 15:55 by Simone Wade) Discharge planning issues (Acute) DVT prophylaxis (Acute) Acute on chronic diastolic CHF (congestive heart failure), NYHA class 1 (Acute) Acute kidney injury superimposed on chronic kidney disease (Acute) adhesive Allergy (Verified 03/14/20 09:44) gluten Allergy (Verified 03/14/20 09:44) pork derived (porcine) Allergy (Verified 03/14/20 09:44) dapsone Adverse Reaction (Verified 03/14/20 09:44) dizziness, headache, nausea coumadin Allergy (Uncoded 03/14/20 09:44) dairy Allergy (Uncoded 03/14/20 09:44) eggs Allergy (Uncoded 03/14/20 09:44) flu vaccine Allergy (Uncoded 03/14/20 09:44) tape Allergy (Uncoded 03/14/20 09:44) Height 4 ft 11.06 in Weight 56.7 kg - Renal Dosing Renal Dosing: BUN 57 mg/dL (7-18) H 03/17/20 11:45 Creatinine 2.22 mg/dL (0.55-1.02) H 03/17/20 11:45 Medications needing adjustments: Reviewed (Crcl ~13.5 mL/min current meds okay.) - Anticoagulation Anticoagulation: Hgb 10.8 g/dL (11.2-15.7) L 03/17/20 11:45 Hct 35.1 % (36.0-46.0) L 03/17/20 11:45 Plt Count 307 10^3/uL (130-400) 03/17/20 11:45 Creatinine 2.22 mg/dL (0.55-1.02) H 03/17/20 11:45 DVT Prohphylaxis: N/A Therapeutic Anticoagulation: Reviewed Medications: Apixaban - Opiate Usage Evaluate Pain Scale/Pains Meds: N/A - Relevant Labs Sodium 134 mmol/L (136-145) L 03/17/20 11:45 Potassium 4.5 mmol/L (3.5-5.1) 03/17/20 11:45 Chloride 97 mmol/L (98-107) L 03/17/20 11:45 Magnesium 2.2 mg/dL (1.8-2.4) 03/15/20 07:05 Electrolytes, C-Reactive P, ESR: Reviewed - DM Control DM Control: Glucose 89 mg/dL (74-106) 03/17/20 11:45 Insulin Dosing: N/A - Heart Failure/NH Heart Failure/NH: Troponin I < 0.05 ng/mL (<0.06) 03/15/20 07:05 NT-Pro-B Natriuret Pep 1451 pg/mL (<300) H 03/16/20 07:30 EF%, YOBANY's, B-Blockers, Diuretics: Reviewed - BP Control BP Control: Blood Pressure 152/70 Blood Pressure 121/64 Blood Pressure 146/71 If elevated: Reviewed (currently elevated, has been within normal limits most of this admission) - Qtc Review If Elevated: N/A (QTc 430) - IV to PO Switch IV Medications: Reviewed - Home Meds Home Med List reviewed: Reviewed (Clonidine may enhance the AV-blocking effect of metoprolol. Sinus node dysfunction may also be enhanced. Metoprolol may enhance the rebound hypertensive effect of clonidine. Monitor closely when using combination/adjusting dosing.) Relevent Home Meds Not ordered & why?: susan polk (has symbicort as substitute) - Current meds Current Medication Order Review: Intervened (Discontinued a duplicate med order.) - Comments Comments/Follow Ups: Watch BP, SCr, electrolytes and for med changes (possible renal adjustments). Antibiotic Activity - Pharmacy Antibiotic Review Pharmacy Antibiotic Activity: Abx regimen adjustment (Azithromycin started)
--- NOTE | 2020-03-17 16:06 | CMPROGNOTE_ITS ---
Care Management Progress Note S/O: Antonia continues to diurese, and remains acute at this time. Per MD, she will have further imaging completed today to ensure discharge readiness. CM notified Antonia Villalba's daughter who was relieved to be able to sleep as she works third shift. Orly plans to arrive at [facility] at 1030 tomorrow to transport her mother home, with continued medical stability. CM continues to follow. A: 85 year old female admitted to [facility] 03/14/20 for Acute on Chronic CHF, Pulmonary HTN, CKD P: Antonia will return home when ready per MD. She will follow up with her PCP and plan of care as prescribed. No additional services anticipated at this time. She willl transport via private vehicle with her daughter, Orly.
--- NOTE | 2020-03-17 19:00 | RT.EKG_ITS ---
APPROVED REPORT Exam: Resting ECG Patient Location: I HR:81 bpm ECG Measurements Heart Rate 81 AXIS AK 198 P 14 QRSd 97 QRS 9 QT 408 T 110 QTc 474 Conclusion Sinus rhythm...normal P axis, V-rate 60- 99 Probable LVH with secondary repol abnrm...multiple LVH criteria
--- NOTE | 2020-03-17 19:14 | NUR.NOTE ---
Patient has increasing ST depression in lead II and ST elevation in V lead. Both present on admitting tele but not on admitting EKG. Doing a R/O EKG as it has worsened. Notified MS. No complaint of symptoms. Pt had negative troponins on 03/14-03/15Nursing Note:
--- NOTE | 2020-03-17 19:31 | NUR.NOTE ---
Reviewed EKG and did not find ST depression consistent with telemetry. Some anterior Q waves noted on EKG due to LVH per EKG. I notified Gabriela Chi bingo cashier nurse on MS and she will notify the MD when she speaks with him. Nursing Note:
[2020-03-17] MEDS: cloNIDine 0.1 MG TAB PO (21:41)
[2020-03-18 03:50] VITALS: BP 102/64; PULSE 63; RESP 18; TEMP 36.8; O2SAT 97
[2020-03-18 07:08] LABS: Anion Gap 10.9 mmol/L (3-11); BUN 71 mg/dL (7-18); CO2 24.1 mmol/L (21.0-32.0); CREATININE 2.25 mg/dL (0.55-1.02); Calcium 10.3 mg/dL (8.5-10.1); Chloride 99 mmol/L (98-107); Estimated GFR 20.72 (mL/min/1.73m2); Glucose 92 mg/dL (74-106); NT-proBNP 804 pg/mL (<300); Potassium 3.8 mmol/L (3.5-5.1); Sodium 134 mmol/L (136-145)
[2020-03-18] MEDS: Budesonide/Formoterol 80/4.5 6.9 GM 60 PUFF INH IH (07:45)
[2020-03-18 08:00] VITALS: BP 137/73; PULSE 67; RESP 18; TEMP 37; O2SAT 100
[2020-03-18] MEDS: Losartan 25 MG TAB PO (08:02)
[2020-03-18] MEDS: Isosorbide Mononitrate 30 MG TABCR PO (08:02)
[2020-03-18] MEDS: Azithromycin 250 MG TAB PO (08:02)
[2020-03-18] MEDS: Potassium Chloride 20 MEQ TABCR PO (08:02)
[2020-03-18] MEDS: predniSONE 5 MG TAB PO (08:02)
[2020-03-18] MEDS: Metoprolol 25 MG TAB PO (08:02)
[2020-03-18] MEDS: Pantoprazole 40 MG TABCR PO (08:02)
[2020-03-18] MEDS: Apixaban 2.5 MG TAB PO (08:02)
[2020-03-18] MEDS: Torsemide 20 MG TAB 60 MG PO (08:02)
--- NOTE | 2020-03-18 08:48 | CMPROGNOTE_ITS ---
- If Service Date Differs Date of service: 03/18/20 Time of Service: 08:48 Care Management Progress Note S/O: A: 85 year old female admitted to [facility] 03/14/20 for Acute on Chronic CHF, Pulmonary HTN, CKD P: Antonia will return home when ready per MD. She will follow up with her PCP and plan of care as prescribed. No additional services anticipated at this time. She willl transport via private vehicle with her daughter, Orly.
--- NOTE | 2020-03-18 09:13 | DSE_ITS ---
Date of service: 03/18/20 Time of Service: 09:13 DS: Diagnosis Discharge Diagnosis (1) Acute on chronic diastolic CHF (congestive heart failure), NYHA class 1: Status: Resolved Asessment and Plan: Her acute CHF exacerbation has resolved. Her admission BNP was 5100 and at discharge it was down to 800. However d/t her rising BUN and creatinine her Torsemide is now on hold pending her repeat outpatient BMP on 03/20. Looking at her overall BNP and BMP over the past 6 months I think that it is reasonable for her BNP under 2000 while keeping her BUN in the 40 to 50 range and her creatinine around 2. Her dry weight is around 56 kg. Patient is to follow up w/ Dr. Cramer as an outpatient. (2) Acute kidney injury superimposed on chronic kidney disease: Status: Acute Asessment and Plan: patient is now developing some prerenal azotemia from her diuretics. This does not require continued hospitalization as she is asymptomatic from this. However, it does require close monitoring and supervision of her diuretic therapy. I have ordered a BMP to be done on March 20 and the patient was instructed to not take her Torsemide until she is told to do so by her diesel service technician after the BMP is resulted. (3) Pulmonary hypertension: Status: Chronic (4) Adrenal insufficiency: Status: Chronic Asessment and Plan: patient did not require parenteral corticosteroids for this admission. She was left on her home dose of prednisone 5 mg daily. (5) PAF (paroxysmal atrial fibrillation): Status: Chronic Asessment and Plan: no changes to her Eliquis dose nor her metoprolol. (6) Presence of permanent cardiac pacemaker: Status: Chronic (7) Acute bronchitis: Status: Acute Asessment and Plan: finish Azithromycin 250 mg daily x 3 more days (8) Pulmonary fibrosis, unspecified: Status: Chronic Asessment and Plan: patient is to follow up w/ Dr. Serrato. Because of her pacemaker, she is not a candidate for an MRI but could have a high resolution CT scan of her chest, I have left this to the discretion of the patient and her team automobile assembler. I am not sure that it will change her management of her CHF nor her asthma. However, if she has pulmonary fibrosis it may affect what medications she goes on in the future. It also may help explain her pulmonary hypertension. (9) Bullous pemphigoid: Status: Chronic Asessment and Plan: no changes were made to her prednisone dose of 5 mg daily. (10) Discharge planning issues: Status: Resolved Asessment and Plan: patient is discharged home to resume her home health services. follow up BMP on 03/20. Discharge Plan Disposition Patient Disposition: HOME Condition: Improving Discharge Details Reason For Visit: ACUTE ON CHRONIC DIASTOLIC CHF, PULMONARY HTN, CKD Admit Date/Time: 03/14/20 10:35 Admit Provider: Constanza Schultz Attending Provider: Constanza Schultz Primary Care Provider: Cara Doll Hospital Course Hospital Course: This 85 yr old female patient with chronic diastolic CHF as well as pulmonary hypertension, paroxysmal atrial fibrillation and CKD was admitted as direct admission from her diesel service technician, Dr. Cramer to arrange for iv diuretics d/t failed outpatient response to oral diuretics in treating acute on chronic diastolic HF. Patient was put on furosemide drip at 5 mg/hr. This was continued until 03/16 when she was resumed on her daily torsemide 60 mg. Her admission wt was 60.3 kg and after diuresis her discharge wt was 56.8 kg. On admission her BUN was 35 (although it appears that her baseline BUN is around 50) and her creatinine on admission was 1.85 (although her baseline appears to be around 2). Her BUN and creatinine chas during her admission and at discharge her BUN was 71 and creatinine was 2.25. She was instructed to withold her Torsemide until after she has received repeat BMP results which she wsa instructed to obtain on 03/20. In addition to her CHF, her admission CXR was read as demonstrating cardiomegaly, and right basilar infiltrate and possible small right pleural effusion. Furthermore she had a mild leukocytosis on admission of 12,500 however she never had a fever during her hospitalization but she had a non-productive cough on admission which was assumed to be d/t her CHF. Her dyspnea and her oxygen requirements improved during her hospitalization however her cough became slightly productive of purulent yellow sputum. She was started on Azithromycin 500 mg x 1 then 250 mg daily. Repeat PA and lateral CXR was performed on 03/17 and was read as chronic fibrosis with no superimposed infiltrate, effusion or pulmonary edema. Furthermore, when I reviewed all of her CXR dating back to 03/05/2016 she has had chronic volume loss and fibrotic findings in her right lower lung. Patient was instructed to finish her azithromycin, get follow up with her team automobile assembler regarding the fibrosis and follow up w/ Dr. Cramer regarding her CHF. She was told to hold her torsemide until after her repeat BMP is obtained and called back to her on 03/20. She is to continue daily weights. Home Meds and New Rx's Prescriptions: New azithromycin 250 mg tablet 250 mg PO DAILY 3 Days Qty: 3 RF: 0 Continued sennosides [Senokot] 8.6 mg tablet 8.6 mg PO HS PRNRF: 0 albuterol sulfate [Ventolin HFA] 90 mcg/actuation HFA aerosol inhaler 2 puff IH Q4H PRNRF: 0 polyethylene glycol 3350 17 gram powder in packet 17 g PO DAILY PRNRF: 0 docusate sodium [Colace] 100 mg capsule 100 mg PO TID PRNRF: 0 potassium chloride [Klor-Con M20] 20 mEq tablet,ER particles/crystals 20 meq PO Q2D RF: 0 clonidine HCl 0.1 mg tablet 0.1 mg PO QHS RF: 0 prednisone 2.5 mg tablet 5 mg PO DAILY RF: 0 metoprolol tartrate 25 MG tablet 25 mg PO BID RF: 0 Eliquis 2.5 MG tablet 2.5 mg PO BID RF: 0 losartan 25 mg tablet 25 mg PO DAILY Qty: 30 RF: 12 isosorbide mononitrate 30 mg tablet extended release 24 hr 30 mg PO DAILY Qty: 90 RF: 3 pantoprazole 40 mg Tablet,Delayed Release (Dr/Ec) 40 mg PO DAILY RF: 0 theophylline 400 mg Tablet Extended Release 24 Hr 200 mg PO DAILY RF: 0 Breo Ellipta 100-25 mcg/dose Blister With Device 1 inh Inhalation DAILY RF: 0 Changed torsemide 20 mg tablet See Rx Instructions .ROUTE .COMPLEX Qty: 180 RF: 3 Discharge Instructions Instructions: Heart Failure (DC) Additional Instructions: do not restart your Torsemide until you have repeated your labs on 03/20 and your physician has called you with the results. He/she will direct you on how oftent to take your Torsemide Stand Alone Forms: Nursing Discharge Form Referrals: Cara Doll [Primary Care Provider] - 03/20/20 10:45 am Activity:: Activity as Tolerated Equipment/Supplies:: No Equipment Needed Diet:: Low Sodium Discharge Orders Discharge Orders: Discharge Order (Routine); Ordered 03/18/20 Ordered By: Simone Wade Other Ambulatory Orders: Basic Metabolic Panel (Routine) Timeframe: 2 Days Facility: [facility] - Location: Laboratory Outpatient Ordered By: Simone Wade Discharge Data Discharge Date/Time-TO BE ENTERED AT DEPARTURE: 03/18/20 10:25 DS: Summary Status at Discharge Functional status at discharge: independent ambulation Overall status at discharge: patient is back to baseline Mental Status: mental status grossly normal Speech and Movement: speech and movement normal Mood: congruent mood Affect: normal affect Time Spent with Patient providing and/or coordinating discharge services: Less than 30 minutes Exam Narrative Exam Narrative: Elderly female sitting up in her chair alert and oriented person place time circumstance. Lungs with focalized rales at the right base Heart is regular rate and rhythm Lower extremities without cyanosis or edema Psych Mental Status: mental status grossly normal Speech and Movement: speech and movement normal Mood: congruent mood Affect: normal affect DS: Data Vitals/I&O Vitals and I&O: Vital Signs Temperature 37 C 03/18/20 08:00 Temperature Source Skin 03/18/20 08:00 Pulse 67 03/18/20 08:00 Pulse Rhythm Irregular 03/18/20 08:06 Respiratory Rate 18 03/18/20 08:00 Respiratory Effort 03/18/20 08:06 Respiratory Depth Normal 03/18/20 08:06 Respiratory Pattern Normal 03/18/20 08:06 Blood Pressure 137/73 03/18/20 08:00 Pulse Oximetry 100 03/18/20 08:00 Oxygen Delivery Method Room Air 03/18/20 08:00 Oxygen Flow Rate 0 03/18/20 08:00 Pain Level 9 03/18/20 08:30 Intake & Output 03/17/20 03/17/20 03/18/20 11:59 23:59 11:59 Intake Total 240 / 730 490 / 730 360 / 360 Balance 240 / 730 490 / 730 360 / 360 Weight 56.7 kg 56.8 kg Intake: IV Oral 240 / 720 480 / 720 360 / 360 Other: Urine Appearance Clear Clear Clear Comment pt voidsindependently reports voiding 3 times independently this morning. RN has not asessed urine Stool Size Small Small Stool Characteristics Soft Soft Brown Brown Voiding Methods Toilet Toilet Toilet Data Completed and Pending Labs on day of discharge: Labs from last 24 hours 03/18/20 03/17/20 03/17/20 06:25 11:45 11:45 WBC 10.92 H RBC 3.82 L Hgb 10.8 L Hct 35.1 L MCV 91.9 MCH 28.3 MCHC 30.8 L RDW 15.8 H Plt Count 307 MPV 9.4 Immature Gran % 1.2 Neutrophils % 74.6 Lymphocytes % 10.1 Monocytes % 8.7 Eosinophils % 4.7 Basophils % 0.7 Nucleated RBC % 0 Absolute Neutrophils 8.15 H Absolute Lymphocytes 1.10 L Absolute Monocytes 0.95 H Absolute Eosinophils 0.51 Absolute Basophils 0.08 Sodium 134 L Potassium 3.8 Chloride 99 Carbon Dioxide 24.1 Anion Gap 10.9 BUN 71 H D Creatinine 2.25 H Estimated GFR/1.73 m2 20.72 Glucose 92 Calcium 10.3 H NT-Pro-B Natriuret Pep 804 H Procalcitonin 0.3 03/17/20 11:45 WBC RBC Hgb Hct MCV MCH MCHC RDW Plt Count MPV Immature Gran % Neutrophils % Lymphocytes % Monocytes % Eosinophils % Basophils % Nucleated RBC % Absolute Neutrophils Absolute Lymphocytes Absolute Monocytes Absolute Eosinophils Absolute Basophils Sodium 134 L Potassium 4.5 Chloride 97 L Carbon Dioxide 28.5 Anion Gap 8.5 BUN 57 H Creatinine 2.22 H Estimated GFR/1.73 m2 21.04 Glucose 89 Calcium 10.3 H NT-Pro-B Natriuret Pep Procalcitonin [facility] Medical History (Updated 03/18/20 @ 14:40 by Simone Wade) Asthma Asthma Atrial fibrillation Bullous pemphigoid CHF (congestive heart failure) Chronic kidney disease CKD (chronic kidney disease) COPD (chronic obstructive pulmonary disease) Depression HTN (hypertension) Hypercalcemia Hypertension MRSA cellulitis PAF (paroxysmal atrial fibrillation) Presence of permanent cardiac pacemaker Pulmonary hypertension Surgical History AICD (automatic cardioverter/defibrillator) present H/O thoracic aortic aneurysm repair History of thoracic aortic aneurysm repair Pacemaker Social History Smoking/Tobacco Use Status: Never Alcohol Intake: never Substance use type: does not use Do you feel safe at home: Yes Do you feel safe in your relationship?: Yes
== END 2020-03-18 10:25 | disposition home or self-care (01) | DRG 291 ==
PROVIDERS: Internal Medicine; Admitting Provider Internal Medicine; PCP Nurse Practitioner Family; Visit Provider Internal Medicine
DX: I13.0 Hypertensive heart and chronic kidney disease with heart failure and stage 1 through stage 4 chronic kidney disease, or unspecified chronic kidney disease (principal); I50.33 Acute on chronic diastolic (congestive) heart failure; N17.9 Acute kidney failure, unspecified; E27.40 Unspecified adrenocortical insufficiency; L12.0 Bullous pemphigoid; J44.0 Chronic obstructive pulmonary disease with (acute) lower respiratory infection; N18.9 Chronic kidney disease, unspecified; I27.20 Pulmonary hypertension, unspecified; I48.0 Paroxysmal atrial fibrillation; J20.9 Acute bronchitis, unspecified; Z95.0 Presence of cardiac pacemaker; J84.10 Pulmonary fibrosis, unspecified; Z66 Do not resuscitate; F32.9 Major depressive disorder, single episode, unspecified
CPT/HCPCS: 36415; 80048; 84145; 94640; 97161; 99223; 99233; 99238; U0003; 71045; 71046; 81003; 81015; 83735; 83880; 84443; 84484; 85025; 93005; 93010; 93225; J1940; J7512

== ENCOUNTER 2020-03-20 12:44 | Outpatient (REF) | payer MEDICARE, SELFPAY ==
[2020-03-20 19:13] LABS: Anion Gap 7.6 mmol/L (3-11); BUN 70 mg/dL (7-18); CO2 26.4 mmol/L (21.0-32.0); CREATININE 2.09 mg/dL (0.55-1.02); Calcium 9.8 mg/dL (8.5-10.1); Chloride 104 mmol/L (98-107); Estimated GFR 22.56 (mL/min/1.73m2); Glucose 119 mg/dL (74-106); Potassium 4.4 mmol/L (3.5-5.1); Sodium 138 mmol/L (136-145)
== END 2020-03-20 13:04 ==
LOC: NCHCN 12:44
PROVIDERS: PCP Nurse Practitioner Family; Visit Provider Nurse Practitioner Family
DX: I50.9 Heart failure, unspecified (principal)
CPT/HCPCS: 80048

== ENCOUNTER → 2020-03-28 10:35 | Outpatient (BNVA) | payer MEDICARE, SELFPAY | PROVIDERS: PCP Nurse Practitioner Family; Referring Provider Nurse Practitioner Family; Visit Provider Internal Medicine Cardiovascular Disease | DX: N18.9 Chronic kidney disease, unspecified; I50.33 Acute on chronic diastolic (congestive) heart failure; I48.0 Paroxysmal atrial fibrillation; Z95.0 Presence of cardiac pacemaker; I13.0 Hypertensive heart and chronic kidney disease with heart failure and stage 1 through stage 4 chronic kidney disease, or unspecified chronic kidney disease; J44.9 Chronic obstructive pulmonary disease, unspecified | CPT/HCPCS: 99214 ==

== ENCOUNTER 2020-03-28 11:28 | Inpatient (IN) | payer MEDICARE, SELFPAY ==
--- NOTE | 2020-03-28 | DI.RAD_ITS ---
EXAM: XR CHEST 2V PA LATERAL CLINICAL HISTORY: congestive heart failure TECHNIQUE: COMPARISON: CR XR CHEST 2V PA LATERAL from 10/17/2018 CR XR CHEST 2V PA LATERAL from 12/13/2019 CR XR CHEST 2V PA LATERAL from 03/17/2020 FINDINGS: The heart is enlarged. There is a transvenous cardiac pacemaker in position. There are multiple shaye rnal sutures. Note is again made of changes previously noted pulmonary fibrosis. No acute pulmonary consolidation. No pleural effusion. IMPRESSION: No evidence of acute process. RADIATION DOSE DELIVERED: Total DLP
[2020-03-28 11:45] VITALS: BP 145/90; PULSE 70; RESP 18; TEMP 36.8; O2SAT 100
[2020-03-28 12:15] LABS: Abs Immature Grans 0.08 10^3/uL (0.0-0.06); Absolute Basophil Count 0.06 10^3/uL (0.0-0.2); Absolute Eosinophil Count 0.35 10^3/uL (0.0-0.7); Absolute Lymphocyte Count 0.85 10^3/uL (1.2-3.4); Absolute Monocyte Count 0.54 10^3/uL (0.1-0.8); Basophils % 0.4; Eosinophils % 2.2; HCT 32.4 % (36.0-46.0); HGB 9.8 g/dL (11.2-15.7); Immature Grans % 0.5; Lymphocytes % 5.4; MCH 28.2 pg (27.0-33.0); MCHC 30.2 % (32.0-36.0); MCV 93.1 fL (80-95); MPV 9.3 fL (8.0-11.0); Monocytes % 3.4; Neutrophils % 88.1; Nucleated RBC 0 %; Platelet Count 337 10^3/uL (130-400); RBC 3.48 10^6/uL (3.93-5.22); RDW 15.7 % (11.7-14.6); RDW-SD 53.5 fL; WBC 15.78 10^3/uL (4.4-10.8)
--- NOTE | 2020-03-28 12:37 | HPE_ITS ---
Date of service: 03/28/20 Time of Service: 12:37 Assessment and Plan Assessment and plan (1) Chronic kidney disease: Status: Acute Assessment and plan: Patients creatinine and GFR in her baseline range. Monitor while on lasix drip. Avoid nephrotoxic drugs when possible. Qualifiers: Chronic kidney disease stage: stage 4 (severe) Qualified Code(s): N18.4 - Chronic kidney disease, stage 4 (severe) (2) Acute on chronic diastolic CHF (congestive heart failure), NYHA class 1: Status: Resolved Assessment and plan: Wt increase of 9 lbs since last admission. Begin lasix drip. Cont Imdur, BB. Monitor wt and potassium. (3) Adrenal insufficiency: Status: Chronic Assessment and plan: Cont her routine po prednisone at 2.5mg daily. (4) PAF (paroxysmal atrial fibrillation): Status: Chronic Assessment and plan: Cont apixiban for AC, Metoprolol for rate control. (5) Hypertension: Status: Chronic Assessment and plan: Cont clonidine 0.1mg daily, losartan 25mg daily and metoprolol 25mg BID Monitor (6) COPD (chronic obstructive pulmonary disease): Status: Chronic Assessment and plan: Does not have indications that she has an acute exacerbation. O2 saturation of 100% on RA Cont prn albuterol and scheduled theophylline. History of Present Illness History of Present Illness Chief Complaint: shortness of breath Narrative: This is an 85 yo female with a PMH of chronic combined diastolic/systolic CHF, atrial fibrillation, CKD, COPD, HTN, pulmonary hypertension. She was hospitalized at [facility] from 03/14 - 03/20/2020 for CHF. Because of concerns for her renal function her torsemide was held at time of discharge and then was restarted after repeat lab 3-4 days post d/c. At that time she had started to redevelop pedal edema and shortness of air. Also at that time she restarted torsemide at 40 mg BID. She noted little improvement. Her weight is up 9 lbs since d/c from the hospital. She was seen by cardiology in their office and admitted as a direct admit from there. Review of Systems All systems reviewed & are unremarkable except as noted in HPI and below [facility] Medical History Asthma Asthma Atrial fibrillation Bullous pemphigoid CHF (congestive heart failure) Chronic kidney disease CKD (chronic kidney disease) COPD (chronic obstructive pulmonary disease) Depression HTN (hypertension) Hypercalcemia Hypertension MRSA cellulitis PAF (paroxysmal atrial fibrillation) Presence of permanent cardiac pacemaker Pulmonary hypertension Surgical History AICD (automatic cardioverter/defibrillator) present H/O thoracic aortic aneurysm repair History of thoracic aortic aneurysm repair Pacemaker Social History Smoking/Tobacco Use Status: Never Smoking risk assessment performed?: Yes Alcohol Intake: never Substance use type: does not use Do you feel safe at home: Yes Do you feel safe in your relationship?: Yes Meds Home Medications and Allergies Home Medications Medication Instructions Recorded Confirmed Type Eliquis 2.5 mg PO BID tab-cap 09/17/16 03/28/20 History metoprolol tartrate 25 mg PO BID tab-cap 09/17/16 03/28/20 History Breo Ellipta 1 inh INHALATION DAILY 09/01/18 03/28/20 History albuterol sulfate 90 mcg/actuation 2 puff IH Q4H PRN gm 10/30/18 03/28/20 History aerosol inhaler sennosides 8.6 mg tablet 8.6 mg PO HS PRN tab 10/30/18 03/28/20 History polyethylene glycol 3350 17 gram 17 g PO DAILY PRN each 11/27/18 03/28/20 History oral powder packet docusate sodium 100 mg capsule 100 mg PO TID PRN cap 06/13/19 03/28/20 History pantoprazole 40 mg PO DAILY 07/17/19 03/28/20 History theophylline 200 mg PO DAILY 07/17/19 03/28/20 History clonidine HCl 0.1 mg tablet 0.1 mg PO QHS 12/03/19 03/28/20 History potassium chloride 20 mEq 20 meq PO Q2D tab 12/21/19 03/28/20 History tablet,extended release(part/cryst) prednisone 2.5 mg tablet 5 mg PO DAILY tab 12/21/19 03/14/20 History losartan 25 mg tablet 25 mg PO DAILY #30 tab 12/28/19 03/28/20 Rx isosorbide mononitrate 30 mg 30 mg PO DAILY #90 tab 03/10/20 03/28/20 Rx tablet,extended release 24 hr torsemide See Rx Instructions .ROUTE 03/18/20 03/14/20 Rx .COMPLEX #180 tab Allergies Allergy/AdvReac Type Severity Reaction Status Date / Time adhesive Allergy Verified 03/14/20 09:44 gluten Allergy Verified 03/14/20 09:44 pork derived (porcine) Allergy Verified 03/14/20 09:44 dapsone AdvReac dizziness, Verified 03/14/20 09:44 headache, nausea coumadin Allergy Uncoded 03/14/20 09:44 dairy Allergy Uncoded 03/14/20 09:44 eggs Allergy Uncoded 03/14/20 09:44 flu vaccine Allergy Uncoded 03/14/20 09:44 tape Allergy Uncoded 03/14/20 09:44 Exam Const General: cooperative and no acute distress Nutritional Appearance: average body habitus Orientation: alert and oriented x3 Eyes Sclera: sclerae normal EOM: EOM intact bilaterally Resp Effort & Inspection: normal respiratory effort Auscultation: diminished lung sounds and rales bilaterally Cardio Jugular venous pressure: JVD Rate: regular rate Rhythm: regular rhythm Heart Sounds: S1 normal, S2 normal and murmur GI Palpation: soft and nontender Percussion: normal to percussion Skin General skin exam: no rashes or lesions noted Extrem General: no calf tenderness and edema (1+ ankles, 2+ feet) Laterality: bilateral Results Labs Result diagrams: 03/28/20 12:05 03/28/20 10:45 Labs: Laboratory Results - last 24 hr 03/28/20 12:05 WBC 15.78 H RBC 3.48 L Hgb 9.8 L Hct 32.4 L MCV 93.1 MCH 28.2 MCHC 30.2 L RDW 15.7 H Plt Count 337 MPV 9.3 Immature Gran % 0.5 Neutrophils % 88.1 Lymphocytes % 5.4 Monocytes % 3.4 Eosinophils % 2.2 Basophils % 0.4 Nucleated RBC % 0 Absolute Neutrophils 13.90 H Absolute Lymphocytes 0.85 L Absolute Monocytes 0.54 Absolute Eosinophils 0.35 Absolute Basophils 0.06 COVID-19 Screening Have you,or household,traveled outside [place] in last 14 days?: No
[2020-03-28 12:43] LABS: ALT 18 U/L (14-59); AST 22 U/L (15-37); Albumin 3.7 g/dL (3.4-5.0); Alkaline Phosphatase 85 U/L (46-116); Anion Gap 9.1 mmol/L (3-11); BUN 54 mg/dL (7-18); Bilirubin, Total 0.4 mg/dL (0.2-1.0); CO2 27.9 mmol/L (21.0-32.0); CREATININE 2.25 mg/dL (0.55-1.02); Calcium 9.9 mg/dL (8.5-10.1); Chloride 103 mmol/L (98-107); Estimated GFR 20.72 (mL/min/1.73m2); Glucose 98 mg/dL (74-106); Magnesium 2.5 mg/dL (1.8-2.4); Sodium 140 mmol/L (136-145); Total Protein 7.4 g/dL (6.4-8.2)
[2020-03-28 13:22] LABS: Bilirubin Negative (Negative); Blood Small (Negative); Clarity Clear (Clear); Glucose Negative (Negative); Ketones Negative (Negative); Leukocyte Esterase Trace (Negative); Nitrite Negative (Negative); Urobilinogen 0.2 EU/dL (Up TO 0.2); pH 7.5 (5-8)
[2020-03-28 13:33] LABS: Bacteria Few HPF (Negative); C & S Indicated? No/Sq. Contamination; Casts Negative LPF (Negative); Crystals Negative HPF (Negative); Epithelial Cells Moderate HPF (Negative); Mucus Negative (Negative)
[2020-03-28 14:09] LABS: NT-proBNP 2244 pg/mL (<300)
[2020-03-28 16:00] VITALS: BP 127/70; PULSE 60; RESP 19; TEMP 36.8; O2SAT 97
--- NOTE | 2020-03-28 18:16 | NUR.NOTE ---
Nursing Note: 03/28/20- pt asked nurse if she could have weaver catheter while being on lasix drip since she has one last time. RN brought weaver supplies in room and explained risk factors with weaver (infection risk). pt decided against weaver for now, and wants to wait and see if she gets uncomfortable or has to get up too often during the night to disrupt sleep. pt reminded it is still an option if she wants it at any point.
[2020-03-28] MEDS: Apixaban 2.5 MG TAB PO (20:06)
[2020-03-28] MEDS: Metoprolol 25 MG TAB PO (20:06)
[2020-03-28 21:27] VITALS: BP 118/63; PULSE 61; RESP 16; TEMP 37.1; O2SAT 98
[2020-03-28] MEDS: cloNIDine 0.1 MG TAB PO (21:39)
[2020-03-28] MEDS: Acetaminophen 325 MG TAB 650 MG PO (21:39)
[2020-03-29] VITALS (7 sets, daily range): BP systolic 113–135; BP diastolic 63–69; PULSE 60–125; RESP 16–18; TEMP 36.4–36.8; O2SAT 93–98
[2020-03-29] MEDS: Isosorbide Mononitrate 30 MG TABCR PO (08:00)
[2020-03-29] MEDS: Metoprolol 25 MG TAB PO ×2 (08:00→20:17)
[2020-03-29] MEDS: Apixaban 2.5 MG TAB PO ×2 (08:00→20:17)
[2020-03-29] MEDS: predniSONE 5 MG TAB PO (08:00)
[2020-03-29] MEDS: Losartan 25 MG TAB PO (08:00)
[2020-03-29] MEDS: Pantoprazole 40 MG TABCR PO (08:00)
[2020-03-29] MEDS: Potassium Chloride 20 MEQ TABCR PO (08:00)
--- NOTE | 2020-03-29 08:16 | INITIAL_ITS ---
- If Service Date Differs Date of service: 03/29/20 Time of Service: 08:16 Care Management Initial Assess REASON FOR HOSPITALIZATION:: Acute exacerbation of CHF. PAST MEDICAL HISTORY/PAST SURGICAL HISTORY:: Medical History: Asthma, Atrial fibrillation, Bullous pemphigoid, CHF (congestive heart failure), Chronic kidney disease, COPD (chronic obstructive pulmonary disease), Depression, HTN (hypertension), Hypercalcemia, MRSA cellulitis, PAF (paroxysmal atrial fibrillation),. Presence of permanent cardiac pacemaker, and Pulmonary hypertension. Surgical History: AICD (automatic cardioverter/defibrillator) present,. H/O thoracic aortic aneurysm repair, and History of thoracic aortic aneurysm repair - Pacemaker. PREVIOUS FUNCTIONAL STATUS/SOCIAL/FAMILY SUPPORTS:: Antonia lives in [place], [place], with her daughter Orly and Orly's two dogs. Antonia is but her , Adolfo, has dementia and resides at [facility] in [place], [place]. Antonia and Adolfo formerly lived in [place], [place], but moved back to [place] a few years ago, due to Adolfo needing ad terminal makeup operator care. Antonia reports she is independent with her ADLs at baseline. She does not drive and depends on Orly for transportation. She spends her days taking care of the house and walking with the dogs. She shares her daughter has trained Marco, a 3 year old Persian Florez, to be her guardian. He reportedly watches over Antonia and stands in front of her to keep her from walking whenever she is short of breath. CURRENT FUNCTIONAL STATUS:: Antonia is sitting in a chair when CM comes to meet with her. She is pleasant and easily engages in conversation. She talks about her and how difficult it has been for her family over the past few months due to Covid. CM will continue to follow. ADVANCE DIRECTIVES:: On file; Orly is listed as Healthcare Agent, Jodee as alternate Has patient been provided with info about the portal/API?: Yes Did the patient sign up for the portal?: No CODE STATUS:: DNR/DNI INSURANCE COVERAGE / FINANCIAL ISSUES:: Medicare, [employer], and Financial Asst 85. CURRENT HOME/COMMUNITY SERVICES/EQUIPMENT:: Antonia has Home Health nursing twice a week. She reports she has a walker and a commode, but states those are in storage as she doesn't need them. PRIMARY CARE PHYSICIAN:: Cara Doll POTENTIAL DISCHARGE NEEDS:: Follow up appointments with PCP and facing machine operator and discharge plan of care. PATIENT/FAMILY EDUCATION NEEDS:: Discharge instructions, limitations, and follow up plan of care, including Ask Me Three and self management. ANTICIPATED BARRIERS TO DISCHARGE:: None anticipated at this time. TRANSPORTATION:: Via private vehicle with her daughter. PLAN:: Anticipate Antonia will return home with a resumption of Home Health nursing when medically cleared by provider. She will follow up with her PCP, facing machine operator, and plan of care as directed. Her daughter will drive her home via private vehicle when ready. CM will continue to support patient and discharge planning needs. Readmission - Within the Past 30 Days Yes or No: Y - Date of First Admission Date of 1st Admission: 03/14/20 - Date of this Admission Date of Admission: 03/28/20 This admission was: Direct Admit - Office Visit Since 1st Admission Have you seen your PCP in the office since discharge?: Yes Date of PCP Appointment: 03/20/20 - Speicalist Appointments Have you seen any other specialist since your 1st Admission?: Yes Date you saw the Specialist: 03/28/20 Specialist Seen: Deneen Rosales, facing machine operator - I. Interview patient and/or Family Difficulty reaching your doctor or getting an office appt?: No Have you had trouble purchasing/ or taking medication?: No How do you take your medications and set up your pills?: Daughter sets up the medication in a pill tray. Have you had trouble with getting meals at home?: No Describe your typical meals since you have been home: Meat, potatoes and vegetable. Did you feel ready for discharge when you left the last time: No Why did you not feel ready for discharge?: Legs were still sore and did not feel right. What services were received?: N/A If patient did not receive services, were there orders at: No Reason there were no orders at discharge: Not needed. Did you call your physician beore you came to the ED?: No Did your physician tell you to come in?: No How do you think you became sick enough to come back?: Antonia states she was home for 3 days without medication due to some confusion on the part of her providers. - If the patient had a VNA ordered Did the patient have a VNA order?: Yes Did you call the VNA before you came?: No (Direct admit by facing machine operator) Did the VNA tell you to come to the hospital?: No Do you know if the VNA called your physician?: No - If the patient had home care service Call them to discuss the patient's admission: Will notify them on Tuesday if Antonia is still inpatient. - Ask the Care Team Members: What do you think caused the patient to be readmitted: Exacerbation of CHF. - ED visits How many ED visits in the past 12 months: 4 - Assessment for Readmission Summary of readmission circumstances, based upon interviews: Antonia was discharged home on 03/18/20. Within 10 days from discharge, she experienced an exacerbation of her congestive heart failure. Antonia went to an appointment with her facing machine operator and she was subsequently readmitted to the hospital due to decompensated heart failure.
[2020-03-29 08:47] LABS: Abs Immature Grans 0.06 10^3/uL (0.0-0.06); Absolute Lymphocyte Count 1.51 10^3/uL (1.2-3.4); Absolute Monocyte Count 0.52 10^3/uL (0.1-0.8); Absolute Neutrophil Count 11.79 10^3/uL (1.2-6.7); Basophils % 0.5; Eosinophils % 4.1; HCT 33.9 % (36.0-46.0); HGB 10.2 g/dL (11.2-15.7); Immature Grans % 0.4; Lymphocytes % 10.4; MCHC 30.1 % (32.0-36.0); MCV 93.1 fL (80-95); MPV 9.3 fL (8.0-11.0); Monocytes % 3.6; Nucleated RBC 0 %; Platelet Count 339 10^3/uL (130-400); RBC 3.64 10^6/uL (3.93-5.22); RDW 15.6 % (11.7-14.6); RDW-SD 53.3 fL; WBC 14.56 10^3/uL (4.4-10.8)
[2020-03-29 08:49] LABS: Absolute Basophil Count 0.07 10^3/uL (0.0-0.2)
[2020-03-29 08:55] LABS: Anion Gap 9.9 mmol/L (3-11); BUN 44 mg/dL (7-18); CO2 26.1 mmol/L (21.0-32.0); CREATININE 1.83 mg/dL (0.55-1.02); Calcium 9.9 mg/dL (8.5-10.1); Chloride 100 mmol/L (98-107); Glucose 124 mg/dL (74-106); Magnesium 2.2 mg/dL (1.8-2.4); Potassium 3.1 mmol/L (3.5-5.1); Sodium 136 mmol/L (136-145)
[2020-03-29] MEDS: Budesonide/Formoterol 80/4.5 6.9 GM 60 PUFF INH IH ×2 (09:59→20:18)
[2020-03-29] MEDS: Potassium Chloride 20 MEQ TABCR 40 MEQ PO ×2 (10:03→20:17)
--- NOTE | 2020-03-29 10:50 | W.PM.PROGNOT ---
Date of Service Date of service: 03/29/20 Time of Service: 10:51 Assessment and Plan Assessment and plan (1) Acute on chronic diastolic CHF (congestive heart failure), NYHA class 1: Status: Resolved Assessment and plan: Continue lasix gtt while monitoring Cr (actually improving on lasix gtt). Monitor and replete lytes. Continue to monitor I/O's, daily weights. Patient is agreeable to a weaver cathete.r (2) Pulmonary hypertension: Status: Chronic Assessment and plan: As above (3) Acute bronchitis: Status: Suspected Assessment and plan: The patient has leucocytosis and no sx other than respiratory. She is wheezing on expiration. CXR is negative. Procalcitonin would not be useful as the patient is on chronic steroids. I will start PO doxy/cefuroxime for presumed acute bronchitis. The patient has prn albuterol for wheezing (she has yet to receieve a dose while in p-patient). Continue to monitor. (4) Acute kidney injury superimposed on chronic kidney disease: Status: Acute Assessment and plan: Improving with diuresis, as can be expected in pulmonary hypertension. Continue to monitor as the patient is diuresing. Monitor I/O's, daily weights. Patient agrees to a weaver catheter. (5) Leucocytosis: Status: Acute Assessment and plan: Starting abx for bronchitis, as above. I am also drawing blood cultures as the patient does have a pacemaker in-situ. (6) Pulmonary fibrosis, unspecified: Status: Chronic Assessment and plan: Tx as above. Consider increasing steroid dose. (7) Adrenal insufficiency: Status: Chronic Assessment and plan: Continue prednisone. (8) PAF (paroxysmal atrial fibrillation): Status: Chronic Assessment and plan: Cont apixiban and metoprolol (9) Presence of permanent cardiac pacemaker: Status: Chronic Assessment and plan: As above. Checking blood cultures. (10) DVT prophylaxis: Status: Acute Assessment and plan: On therapeutic eliquis (11) Discharge planning issues: Status: Acute Assessment and plan: DNR/DNI. Continues to require hospitalization. Subjective Subjective Interval history since last seen: Feels no better than yesterday as far as her breathing. States she is very GUZMAN. Denies dizziness, chest pain. C/o nonproductive cough. Denies n/v/diarrhea/constipation. Denies dysuria. Legs are less swollen. TEDs are bothering her. On tele, she is A-paced in the 60s. Had a 13 beat stretch of bundle branch block beats last night. Exam Narrative Exam Narrative: General: pleasant elderly female, A&Ox3, sometimes providing contradictory answers HEENT: Slightly disconjugate eye movements, MMM Heart: mostly RRR, +quiet JENNIFER Lungs: expiratory wheezing at B bases Abdomen: soft, nontender, nondistended Extremities: BLE in [place] (hanging down the bed, not elevated), +1 pitting edema through BLEs. Objective Last Vital Signs Temp 36.6 C 03/29/20 07:35 Pulse 61 03/29/20 07:35 Resp 18 03/29/20 07:35 BP 135/67 03/29/20 07:35 Pulse Ox 96 03/29/20 07:35 Laboratory Results - last 24 hr 03/28/20 03/28/20 03/28/20 10:30 10:45 10:45 WBC RBC Hgb Hct MCV MCH MCHC RDW Plt Count MPV Immature Gran % Neutrophils % Lymphocytes % Monocytes % Eosinophils % Basophils % Nucleated RBC % Absolute Neutrophils Absolute Lymphocytes Absolute Monocytes Absolute Eosinophils Absolute Basophils Sodium 140 Potassium 4.0 Chloride 103 Carbon Dioxide 27.9 Anion Gap 9.1 BUN 54 H Creatinine 2.25 H Estimated GFR/1.73 m2 20.72 Glucose 98 Calcium 9.9 Magnesium 2.5 H Total Bilirubin 0.4 AST 22 ALT 18 Alkaline Phosphatase 85 NT-Pro-B Natriuret Pep 2244 H Total Protein 7.4 Albumin 3.7 Urine Color Urine Clarity Urine pH Ur Specific [place] Urine Protein Urine Ketones Urine Blood Urine Nitrite Urine Bilirubin Urine Urobilinogen Ur Leukocyte Esterase Urine RBC Urine WBC Ur Epithelial Cells Urine Crystals Urine Bacteria Urine Casts Urine Mucus Ur Culture Indicated? Urine Glucose COVID-19 PCR Cancelled Nasopharyn COVID-19 PCR Cancelled Ref Test Perform Site Cancelled 03/28/20 03/28/20 03/29/20 12:05 12:57 08:25 WBC 15.78 H RBC 3.48 L Hgb 9.8 L Hct 32.4 L MCV 93.1 MCH 28.2 MCHC 30.2 L RDW 15.7 H Plt Count 337 MPV 9.3 Immature Gran % 0.5 Neutrophils % 88.1 Lymphocytes % 5.4 Monocytes % 3.4 Eosinophils % 2.2 Basophils % 0.4 Nucleated RBC % 0 Absolute Neutrophils 13.90 H Absolute Lymphocytes 0.85 L Absolute Monocytes 0.54 Absolute Eosinophils 0.35 Absolute Basophils 0.06 Sodium 136 Potassium 3.1 L Chloride 100 Carbon Dioxide 26.1 Anion Gap 9.9 BUN 44 H D Creatinine 1.83 H Estimated GFR/1.73 m2 26.30 Glucose 124 H Calcium 9.9 Magnesium 2.2 Total Bilirubin AST ALT Alkaline Phosphatase NT-Pro-B Natriuret Pep Total Protein Albumin Urine Color Yellow Urine Clarity Clear Urine pH 7.5 Ur Specific [place] 1.020 Urine Protein Negative Urine Ketones Negative Urine Blood Small H Urine Nitrite Negative Urine Bilirubin Negative Urine Urobilinogen 0.2 Ur Leukocyte Esterase Trace H Urine RBC 3-5 H Urine WBC 5-10 Ur Epithelial Cells Moderate Urine Crystals Negative Urine Bacteria Few Urine Casts Negative Urine Mucus Negative Ur Culture Indicated? No/sq. contamination Urine Glucose Negative COVID-19 PCR Nasopharyn COVID-19 PCR Ref Test Perform Site 03/29/20 08:25 WBC 14.56 H RBC 3.64 L Hgb 10.2 L Hct 33.9 L MCV 93.1 MCH 28.0 MCHC 30.1 L RDW 15.6 H Plt Count 339 MPV 9.3 Immature Gran % 0.4 Neutrophils % 81.0 Lymphocytes % 10.4 Monocytes % 3.6 Eosinophils % 4.1 Basophils % 0.5 Nucleated RBC % 0 Absolute Neutrophils 11.79 H Absolute Lymphocytes 1.51 Absolute Monocytes 0.52 Absolute Eosinophils 0.60 Absolute Basophils 0.07 Sodium Potassium Chloride Carbon Dioxide Anion Gap BUN Creatinine Estimated GFR/1.73 m2 Glucose Calcium Magnesium Total Bilirubin AST ALT Alkaline Phosphatase NT-Pro-B Natriuret Pep Total Protein Albumin Urine Color Urine Clarity Urine pH Ur Specific [place] Urine Protein Urine Ketones Urine Blood Urine Nitrite Urine Bilirubin Urine Urobilinogen Ur Leukocyte Esterase Urine RBC Urine WBC Ur Epithelial Cells Urine Crystals Urine Bacteria Urine Casts Urine Mucus Ur Culture Indicated? Urine Glucose COVID-19 PCR Nasopharyn COVID-19 PCR Ref Test Perform Site
[2020-03-29] MEDS: Cefuroxime 250 MG TAB PO ×2 (11:40→20:17)
[2020-03-29] MEDS: Doxycycline Hyclate 100 MG CAP PO ×2 (11:40→21:18)
[2020-03-29] MEDS: Acetaminophen 325 MG TAB 650 MG PO (16:42)
[2020-03-29] MEDS: cloNIDine 0.1 MG TAB PO (21:17)
[2020-03-30 00:09] VITALS: BP 128/70; PULSE 58; RESP 16; TEMP 36.9; O2SAT 98
[2020-03-30 03:43] VITALS: BP 108/62; PULSE 62; RESP 16; TEMP 36.4; O2SAT 96
[2020-03-30 07:30] LABS: Abs Immature Grans 0.03 10^3/uL (0.0-0.06); Absolute Basophil Count 0.08 10^3/uL (0.0-0.2); Absolute Eosinophil Count 0.56 10^3/uL (0.0-0.7); Absolute Lymphocyte Count 1.46 10^3/uL (1.2-3.4); Absolute Monocyte Count 0.78 10^3/uL (0.1-0.8); Absolute Neutrophil Count 10.48 10^3/uL (1.2-6.7); Basophils % 0.6; Eosinophils % 4.2; HCT 32.6 % (36.0-46.0); Immature Grans % 0.2; Lymphocytes % 10.9; MCH 28.2 pg (27.0-33.0); MCHC 30.7 % (32.0-36.0); MCV 91.8 fL (80-95); MPV 9.5 fL (8.0-11.0); Monocytes % 5.8; Neutrophils % 78.3; Nucleated RBC 0 %; Platelet Count 341 10^3/uL (130-400); RBC 3.55 10^6/uL (3.93-5.22); RDW 15.4 % (11.7-14.6); WBC 13.39 10^3/uL (4.4-10.8)
[2020-03-30] MEDS: Budesonide/Formoterol 80/4.5 6.9 GM 60 PUFF INH IH ×2 (07:37→19:53)
[2020-03-30] MEDS: Pantoprazole 40 MG TABCR PO (07:40)
[2020-03-30] MEDS: Isosorbide Mononitrate 30 MG TABCR PO (07:40)
[2020-03-30] MEDS: Metoprolol 25 MG TAB PO ×2 (07:40→19:53)
[2020-03-30] MEDS: Apixaban 2.5 MG TAB PO ×2 (07:40→19:53)
[2020-03-30] MEDS: Cefuroxime 250 MG TAB PO ×2 (07:40→19:53)
[2020-03-30] MEDS: predniSONE 5 MG TAB PO (07:40)
[2020-03-30] MEDS: Losartan 25 MG TAB PO (07:41)
[2020-03-30 07:44] LABS: Anion Gap 10.9 mmol/L (3-11); BUN 43 mg/dL (7-18); CO2 24.1 mmol/L (21.0-32.0); CREATININE 1.86 mg/dL (0.55-1.02); Calcium 10.1 mg/dL (8.5-10.1); Chloride 101 mmol/L (98-107); Estimated GFR 25.81 (mL/min/1.73m2); Glucose 84 mg/dL (74-106); Magnesium 2.3 mg/dL (1.8-2.4); Potassium 3.7 mmol/L (3.5-5.1); Sodium 136 mmol/L (136-145)
[2020-03-30] MEDS: Potassium Chloride 20 MEQ TABCR 40 MEQ PO (07:45)
[2020-03-30 07:46] VITALS: BP 125/62; PULSE 61; RESP 16; TEMP 36.6; O2SAT 98
--- NOTE | 2020-03-30 08:55 | IN_ITS ---
Date of service: 03/30/20 Time of Service: 09:10 PT Notes Visit Reasons: ACUTE EXACERBATION OF CHF Inpatient Physical Therapy Evaluation Date: March 30, 2020 Referring Doctor: Constanza Schultz MD PT Orders: PT CONSULT: Limited ability Precautions: Standard Patient Profile/Admitting Diagnosis: Patient is an 85-year-old female admitted to [facility] on March 28, 2020 secondary to complaints of shortness of breath. Admitted secondary to acute exacerbation of CHF. She had been admitted to this facility on 14 March by torch cutter for management of acute on chronic diastolic CHF. She was advised to return to the hospital after consult with her physician due to her continued complaints of shortness of breath. Patient indicates she is also been recently diagnosed with bronchitis. PMHX: Medical History Asthma Asthma Atrial fibrillation Bullous pemphigoid CHF (congestive heart failure) Chronic kidney disease CKD (chronic kidney disease) COPD (chronic obstructive pulmonary disease) Depression HTN (hypertension) Hypercalcemia Hypertension MRSA cellulitis PAF (paroxysmal atrial fibrillation) Presence of permanent cardiac pacemaker Pulmonary hypertension Surgical History AICD (automatic cardioverter/defibrillator) present H/O thoracic aortic aneurysm repair History of thoracic aortic aneurysm repair Pacemaker Social History/Home Situation: Lives with daughter in a private two-story home, but reside on on floor. 2 steps to enter with one rail. Independent with all self care and ADL's. No longer drives. Current Functional Limitations: None Equipment Owned/DME: Walker, cane. Patient states she has not needed to use either device in the last few months. Subjective: Prior to torch cutter apt this morning she had been independently functioning. Patient complaining of some mild pain in bilateral foot and ankle secondary to fluid retention. Admits this is significantly reduced compared to yesterday. Objective: General Observation: Sitting in chair by bed just finished breakfast. Reading. In no distress, good color. Nieves. IV left cubital fossa. Telemetry monitoring. Mental Status: A & O x3 Pain: 2/10 Vital Signs: BP 142/78, HR 65, O2 sat on room air 98% ROM: Right Upper Extremity: WNL with the exception of wood carver. Due to advanced arthritic changes she is unable to approximate fingertips to palmar crease Left Upper Extremity: WNL Right Lower Extremity: WNL Left Lower Extremity: WNL Strength: Right Upper Extremity: Glenohumeral joint flexion 4+/5, abduction 4/5, bicep 4+/5, tricep 4/5. Medical Office Representative 4/5. Left Upper Extremity: Glenohumeral joint flexion 4/5, abduction 4/5, bicep tricep 4+/5, wood carver 4+/5 Right Lower Extremity: Grossly 4+ /5 Left Lower Extremity: Grossly 4+ /5 Sensation: WNL to light touch bilateral upper and lower extremities. Bed Mobility/Transfers: Bed mobility: Independent Sit?stand: Standby assist Stand?sit: Standby assist Bed?chair: Standby assist Chair?bed: Standby assist Gait: Patient ambulates 150 feet with contact-guard and no assistive device. Did note some mild imbalance with turning to her right. Balance: Static Sitting: Good Dynamic Sitting: Good Static Standing: Good Dynamic Standing: Fair. Negative Romberg Special Tests: Mobility Limitations Standardized Measure [facility] 6 clicks Basic Mobility Inpatient Short Form: Raw Score: CMS Score: 28.97% disability Informed Consent/Education: Patient instructed in purpose of PT consult and plan of care. Assessment: Patient is a 85 year old female referred to physical therapy services with the diagnosis of acute on chronic CHF, pulmonary hypertension, acute bronchitis acute on chronic kidney disorder. Patient presents with clinical signs and symptoms consistent with referred diagnosis. She currently demonstrates the following impairment levels: 1. Impaired activity tolerance 2. Decrease strength to lower extremity hip and knee major muscle group 3. Impaired standing balance. Impairments are contributing to the following functional limitations: 1. Increase completion time for mobility ADL performance Patient is assessed as a Low 64804 complexity placed on the following: History: See comorbidities Examination: See above Presentation: Low Decision Making: Easy Goals X1 week 1. Supine-Sit I 2. Sit-Supine I 3. Sit-Stand I 4. Stand-Sit I 5. Bed-Chair I 6. Chair-Bed I 7. Gait I 8. Stairs I 9. Independent with home exercise program I 10. Dynamic standing balance Good Plan of Care/Treatment Plan: 1-2x/day, 7 days/week x 1 week. Plan of care has been reviewed with the HOT END OPERATOR providing the service under Physical Therapy direction. Initiate Physical Therapy intervention for strengthening, bed mobility, transfers, gait, stairs, balance training, use of assistive device. DISCHARGE RECOMMENDATIONS: Home with daughter. TREATMENT CODE/TIME: 25 minutes, [id number]. 9:10-9:35 Thank you for this referral Matthieu Castro PT, DPT Disclaimer: This note was created using [employer] voice recognition software. It was reviewed for major content. However, there may be multiple small discrepancies and errors due to the voice recognition aspects of the software.
--- NOTE | 2020-03-30 09:34 | PHA.REVIEW ---
Pharmacy Admission Review - Admission Clinical Review (Last Updated 03/28/20 @ 13:01 by Rashi Romero MD) Discharge planning issues (Acute) Leucocytosis (Acute) DVT prophylaxis (Acute) Chronic kidney disease (Acute) Acute kidney injury superimposed on chronic kidney disease (Acute) adhesive Allergy (Verified 03/14/20 09:44) gluten Allergy (Verified 03/14/20 09:44) pork derived (porcine) Allergy (Verified 03/14/20 09:44) dapsone Adverse Reaction (Verified 03/14/20 09:44) dizziness, headache, nausea coumadin Allergy (Uncoded 03/14/20 09:44) dairy Allergy (Uncoded 03/14/20 09:44) eggs Allergy (Uncoded 03/14/20 09:44) flu vaccine Allergy (Uncoded 03/14/20 09:44) tape Allergy (Uncoded 03/14/20 09:44) Height 4 ft 11 in Weight 56.4 kg - Renal Dosing Renal Dosing: BUN 43 mg/dL (7-18) H 03/30/20 06:30 Creatinine 1.86 mg/dL (0.55-1.02) H 03/30/20 06:30 Medications needing adjustments: Reviewed List of meds needing interventions: CrCl ~16ml/min, current orders ok but watch for add't of nephrotoxic drugs - Anticoagulation Anticoagulation: Hgb 10.0 g/dL (11.2-15.7) L 03/30/20 06:30 Hct 32.6 % (36.0-46.0) L 03/30/20 06:30 Plt Count 341 10^3/uL (130-400) 03/30/20 06:30 Creatinine 1.86 mg/dL (0.55-1.02) H 03/30/20 06:30 Therapeutic Anticoagulation: Reviewed Medications: Apixaban - Opiate Usage Evaluate Pain Scale/Pains Meds: N/A - Relevant Labs Sodium 136 mmol/L (136-145) 03/30/20 06:30 Potassium 3.7 mmol/L (3.5-5.1) 03/30/20 06:30 Chloride 101 mmol/L (98-107) 03/30/20 06:30 Magnesium 2.3 mg/dL (1.8-2.4) 03/30/20 06:30 Electrolytes, C-Reactive P, ESR: Reviewed - DM Control DM Control: Glucose 84 mg/dL (74-106) 03/30/20 06:30 Insulin Dosing: Reviewed - Heart Failure/AK Heart Failure/AK: NT-Pro-B Natriuret Pep 2244 pg/mL (<300) H 03/28/20 10:45 EF%, YOBANY's, B-Blockers, Diuretics: Reviewed - BP Control BP Control: Blood Pressure 125/62 Blood Pressure 108/62 Blood Pressure 128/70 If elevated: Reviewed - Qtc Review If Elevated: N/A - IV to PO Switch IV Medications: Reviewed - Home Meds Home Med List reviewed: Intervened (Last rx filled for clonidine says BID - rn checking if she only takes at HS now) Relevent Home Meds Not ordered & why?: torsemide (lasix gtt currently) - Current meds Current Medication Order Review: Reviewed - Comments Comments/Follow Ups: Lasix gtt running at 5ml/hr - monitor daily weight, kidney fxn, vitals, BMP
[2020-03-30] MEDS: Doxycycline Hyclate 100 MG CAP PO ×2 (10:24→21:48)
[2020-03-30 11:59] VITALS: BP 129/64; PULSE 64; RESP 18; TEMP 36.9; O2SAT 98
--- NOTE | 2020-03-30 12:17 | W.PM.PROGNOT ---
Date of Service Date of service: 03/30/20 Time of Service: 12:18 Assessment and Plan Assessment and plan (1) Acute on chronic diastolic CHF (congestive heart failure), NYHA class 1: Status: Resolved Assessment and plan: Continue lasix gtt while monitoring Cr (stable so far) Monitor lytes. Continue to monitor I/O's, daily weights - losing weight appropriately. (2) Pulmonary hypertension: Status: Chronic Assessment and plan: As above (3) Acute bronchitis: Status: Suspected Assessment and plan: The patient has leucocytosis and no sx other than respiratory. Leucocytosis is improving since initiation of oral abx (doxycycline/cefuroxime). The patient has prn albuterol. Continue to monitor. (4) Acute kidney injury superimposed on chronic kidney disease: Status: Acute Assessment and plan: Stable on diuresis. Continue to monitor Cr, I/O's, daily weights. (5) Leucocytosis: Status: Acute Assessment and plan: Suspected to be due to acute bronchitis. Continue empiric abx as above. Blood cultures are pending (has a pacemaker in-situ). (6) Pulmonary fibrosis, unspecified: Status: Chronic Assessment and plan: Tx as above. Consider increasing steroid dose. (7) Adrenal insufficiency: Status: Chronic Assessment and plan: Continue prednisone. (8) PAF (paroxysmal atrial fibrillation): Status: Chronic Assessment and plan: Continue apixaban and metoprolol (9) Presence of permanent cardiac pacemaker: Status: Chronic Assessment and plan: As above. Await blood cultures. (10) DVT prophylaxis: Status: Acute Assessment and plan: On therapeutic eliquis (11) Discharge planning issues: Status: Acute Assessment and plan: DNR/DNI. Continues to require hospitalization. Subjective Subjective Interval history since last seen: Ms Win states that her breathing feels a little bit better, but she still gets quite short of breath ambulating. Cough is nonproductive - normal for her. Nose is runny - normal for her. Her legs, she feels, are less swollen today. She states that the pills we gave her today made her nauseated, but she feels better now - and she was able to finish everything on her lunch tray. States she feels dizzy when she gets up, but not when she is sitting still. Denies chest pain. Exam Narrative Exam Narrative: General: pleasant elderly female, A&Ox3, mildly dyspneic while talking to me. HEENT: Slightly disconjugate eye movements, MMM Heart: mostly RRR, +quiet JENNIFER Lungs: decreased expiratory wheezing at B bases Abdomen: soft, nontender, nondistended Extremities: not wearing TEDs today, trace pitting edema through BLEs, improved from yesterday Objective Last Vital Signs Temp 36.9 C 03/30/20 11:59 Pulse 64 03/30/20 11:59 Resp 18 03/30/20 11:59 BP 129/64 03/30/20 11:59 Pulse Ox 98 03/30/20 11:59 Laboratory Results - last 24 hr 03/30/20 03/30/20 06:30 06:30 WBC 13.39 H RBC 3.55 L Hgb 10.0 L Hct 32.6 L MCV 91.8 MCH 28.2 MCHC 30.7 L RDW 15.4 H Plt Count 341 MPV 9.5 Immature Gran % 0.2 Neutrophils % 78.3 Lymphocytes % 10.9 Monocytes % 5.8 Eosinophils % 4.2 Basophils % 0.6 Nucleated RBC % 0 Absolute Neutrophils 10.48 H Absolute Lymphocytes 1.46 Absolute Monocytes 0.78 Absolute Eosinophils 0.56 Absolute Basophils 0.08 Sodium 136 Potassium 3.7 Chloride 101 Carbon Dioxide 24.1 Anion Gap 10.9 BUN 43 H Creatinine 1.86 H Estimated GFR/1.73 m2 25.81 Glucose 84 Calcium 10.1 Magnesium 2.3
--- NOTE | 2020-03-30 13:33 | PDOC.CMPRO ---
- If Service Date Differs Date of service: 03/30/20 Time of Service: 13:33 Care Management Progress Note S/O: Antonia continues on a lasix drip and on oral antibiotics. Per chart review, she reports breathing better today and having less swelling in her legs. She was evaluated by physical therapy this morning and became short of breath with ambulation. Her WBC today is elevated at 13.39, RBC low at 3.55, BUN high at 43, and Creatinine high at 1.86. CM will continue to follow. A: Antonia is a 85 year old female readmitted to [facility] on 03/28/20 for acute exacerbation of CHF. P: Anticipate Antonai will be discharged home with a resumption of Home Health nursing when medically cleared by provider. She will follow up with her PCP, regional vice president surgical sales, and plan of care as directed. Her daughter, Orly, will drive her home via private vehicle when ready. CM will continue to support patient and discharge planning needs.
[2020-03-30] MEDS: Acetaminophen 325 MG TAB 650 MG PO ×2 (15:16→21:48)
[2020-03-30 15:48] VITALS: BP 116/73; PULSE 63; RESP 17; TEMP 37; O2SAT 97
[2020-03-30 19:21] VITALS: BP 127/66; PULSE 66; RESP 18; TEMP 37; O2SAT 97
[2020-03-30] MEDS: cloNIDine 0.1 MG TAB PO (21:48)
[2020-03-31 00:03] VITALS: BP 111/66; PULSE 62; RESP 17; TEMP 36.8; O2SAT 96
[2020-03-31 04:10] VITALS: BP 106/56; PULSE 58; RESP 16; TEMP 36.8; O2SAT 98
[2020-03-31 07:25] LABS: Abs Immature Grans 0.06 10^3/uL (0.0-0.06); Absolute Basophil Count 0.08 10^3/uL (0.0-0.2); Absolute Lymphocyte Count 1.52 10^3/uL (1.2-3.4); Basophils % 0.6; Eosinophils % 4.8; HCT 32.5 % (36.0-46.0); Immature Grans % 0.5; Lymphocytes % 12.1; MCHC 30.8 % (32.0-36.0); MPV 9.3 fL (8.0-11.0); Monocytes % 8.3; Neutrophils % 73.7; Nucleated RBC 0 %; Platelet Count 351 10^3/uL (130-400); RBC 3.57 10^6/uL (3.93-5.22); RDW 15.4 % (11.7-14.6); RDW-SD 51.5 fL; WBC 12.58 10^3/uL (4.4-10.8)
[2020-03-31 07:27] LABS: Absolute Monocyte Count 1.04 10^3/uL (0.1-0.8); Absolute Neutrophil Count 9.27 10^3/uL (1.2-6.7)
[2020-03-31 07:33] LABS: Anion Gap 7.5 mmol/L (3-11); BUN 50 mg/dL (7-18); CO2 26.5 mmol/L (21.0-32.0); Calcium 10.1 mg/dL (8.5-10.1); Chloride 100 mmol/L (98-107); Estimated GFR 21.26 (mL/min/1.73m2); Glucose 93 mg/dL (74-106); Magnesium 2.2 mg/dL (1.8-2.4); Potassium 3.5 mmol/L (3.5-5.1); Sodium 134 mmol/L (136-145)
[2020-03-31] MEDS: Budesonide/Formoterol 80/4.5 6.9 GM 60 PUFF INH IH ×2 (07:52→20:23)
--- NOTE | 2020-03-31 08:28 | PDOC.CMPRO ---
- If Service Date Differs Date of service: 03/31/20 Time of Service: 08:28 Care Management Progress Note S/O: Antonia was sitting up in a chair when CM met with her. She was pleasant and interacted well with CM. Antonia stated that she does not feel that she will need any additional services at home. She lives with her daughter Orly and feels well supported. Antonia currently receives home health nursing twice a week and that will continue. Antonia worked with PT this morning and, according to her, became short winded. This improved after she received a dose from her rescue inhaler. She does not need or use oxygen at home. Antonia stated that she has a mongolian merino at home who has been trained to accompany her and stop her from walking when her breathing becomes labored. He then leads her back into the house until she has rested. A: Antonia is a 85 year old female readmitted to [facility] on 03/28/20 for acute exacerbation of CHF. P: Anticipate Antonia will be discharged home with a resumption of Home Health nursing when medically cleared by provider. She will follow up with her PCP, dry transfer man, and plan of care as directed. Her daughter, Orly, will drive her home via private vehicle when ready. CM will continue to support patient and discharge planning needs.
[2020-03-31 08:52] LABS: SARS-CoV-2 RNA Source Nasal/Nares
[2020-03-31 08:53] LABS: SARS-CoV-2 RNA Not Detected (NotDetected)
[2020-03-31] MEDS: Pantoprazole 40 MG TABCR PO (09:01)
[2020-03-31] MEDS: Losartan 25 MG TAB PO (09:02)
[2020-03-31] MEDS: Metoprolol 25 MG TAB PO ×2 (09:03→20:22)
[2020-03-31] MEDS: Apixaban 2.5 MG TAB PO ×2 (09:03→20:22)
[2020-03-31] MEDS: Isosorbide Mononitrate 30 MG TABCR PO (09:03)
[2020-03-31] MEDS: predniSONE 5 MG TAB PO (09:04)
[2020-03-31] MEDS: Potassium Chloride 20 MEQ TABCR 40 MEQ PO (09:04)
[2020-03-31] MEDS: Cefuroxime 250 MG TAB PO ×2 (09:05→20:22)
[2020-03-31] MEDS: Albuterol HFA 18 GM 200 PUFF INH IH (09:06)
[2020-03-31] MEDS: Doxycycline Hyclate 100 MG CAP PO ×2 (10:06→21:15)
--- NOTE | 2020-03-31 11:20 | DI.US_ITS ---
APPROVED REPORT EXAM: Comprehensive 2D, Doppler, and color-flow Echocardiogram Patient Location: In-Patient Room/Bed: [facility] Sack Sewer Machine: Tania Diaz RDCS (AE) Indications: Recurrent CHF Other Information Study Quality: Adequate Conclusion Left Ventricle : The left ventricle is normal size. The left ventricular ejection fraction is within the normal range. There is normal left ventricular wall thickness. There is normal LV segmental wall motion. The left ventricular diastolic function is abnormal. LVEF is 50-55%. Right Ventricle : Right ventricle is not well visualized. The right ventricular systolic function is normal. The RVSP is 33.0 mmHg. Atria : Left atrium is moderately dilated. Right atrium is mildly dilated. Valves: There are no hemodynamically significant valvular lesions. Great Vessels : The aortic root is normal in size. The ascending aorta is normal in size. IVC is norm al in size and collapses >50% with inspiration. Compared to study from 07/18/2019, there is no significant change. Wall motion Left Ventricle The left ventricle is normal size. The left ventricular ejection fraction is within the normal range. There is normal left ventricular wall thickness. There is normal LV segmental wall motion. The left ventricular diastolic function is abnormal. There is no ventricular septal defect visualized. LVEF is 50-55%. Right Ventricle Right ventricle is not well visualized. The right ventricular systolic function is normal. The RVSP i s 33.0 mmHg. Pacemaker lead is present in the right ventricle. Atria Left atrium is moderately dilated. Right atrium is mildly dilated. The interatrial septum is intact w ith no evidence for an atrial septal defect. Aortic Valve The aortic valve is normal in structure. Aortic valve is trileaflet. There is no aortic valvular sten osis. Trace aortic regurgitation. Mitral Valve Moderate mitral annular calcification. No evidence of mitral valve stenosis. Trace mitral regurgitati on. Tricuspid Valve The tricuspid valve is normal in structure. There is no tricuspid valve stenosis. Mild tricuspid regu rgitation. Pulmonic Valve The pulmonary valve is normal in structure. There is no pulmonic valvular stenosis. Trace pulmonic re gurgitation. Great Vessels The aortic root is normal in size. The ascending aorta is normal in size. IVC is normal in size and c ollapses >50% with inspiration. Pericardium There is no pericardial effusion. There is no pleural effusion. 2D Dimensions IVSD d PLAX 1.02 cm F: 0.6-1.0 LV Vol A2C d MOD 61.0 mL LVPW d PLAX 0.98 cm F: 0.6 - 1.0 LV Vol A4C d MOD 76.2 mL LVID d PLAX 4.16 cm F: 3.8 - 5.2 LA vol/ BSA A2C s A-L 40.0 mL/m2 LVDs 2.90 cm F: 2.2 - 3.5 LA vol/ BSA A4C s A-L 52.9 mL/m2 Ao Root d 2.79 cm F: 2.7 - 3.3 LA Vol/ BSA Biplane s A-L 47.9 mL/m2 RA Area A4C 16.63 cm2 LA Area A4C s MOD 25.46 cm2 RA Vol/ BSA A4C s A-L 28.8 mL/m2 LA Area A2C s MOD 21.26 cm2 Ao Asc Diam d 3.08 cm F: 2.3 - 3.1 LV EF A4C MOD 53.0 % LV EF Teichholz 56.7 % LV EF A2C MOD 51.2 % LVEF (Rowley's) 50.22 % F: 54 - 74 LV EF Biplane MOD 50.2 % LV Volume 57.42 mL F: 46 - 106 SV 34.64 mL LV Volume Index 38.28 mL/m2 F: 29 - 61 SV Index 23.02 mL/m2 LV Vol Biplane MOD 69.0 mL FS 29.35 % LV Diastology MV E' medial 0.059 (>0.07 m/s) E/A Ratio 0.8 LV E/e MED 8.75 (<14) MV E Vmax 0.52 (0.4-1.3 m/s) MV E' lateral 0.075 (>0.1 m/s) MV A Vmax 0.65 (0.4-1.3 m/s) LV E/e LAT 6.95 (<14) MV E/A Ratio 0.79 MV E/E' medial 8.77 MV E/E' lateral 6.96 Aortic Valve LVOT Area 2.34 cm2 AoV Area Vmax 1.62 cm2 LVOT Vmax 1.20 m/s AoV Area/ BSA (Vmax) 1.08 cm2/m2 LVOT Mean Tristin. 0.79 m/s CORA Mean Tristin. 1.54 cm2 LVOT Peak Grad 5.7 mmHg CORA Mean [place]istin. Index 1.02 cm2/m2 LVOT Mean Grad 2.9 mmHg LVOT VTI 0.223 m LVOT Diam s 1.70 cm AoV Vmax 1.73 m/s Velocity Ratio 0.69 AoV Mean Tristin. 1.19 m/s AoV Peak Grad 12.0 mmHg LVOT SV 52.17 mL AoV Mean Grad 6.3 mmHg AoV VTI 0.297 m AoV Area VTI 1.76 cm2 AoV Area/ BSA (VTI) 1.17 cm/m2 Mitral Valve MV DT 289 (160-240 msec) MV PHT 84 msec MV Area PHT 2.63 cm2 Pulmonary Valve PV Vmax 1.12 (0.5-1.5 m/s) RVOT Peak Gr. 1.72 mmHg PV Peak Grad 5.1 mmHg RVOT Mean Gr. 0.90 mmHg PV Mean Grad 2.2 mmHg RVOT VTI 0.111 m PV VTI 0.198 m RVOT Vmax 0.66 m/s Tricuspid Valve TR Peak Grad 29.9 mmHg TR Vmax 2.74 m/s RA Pressure 3.00 mmHg RVSP (TR) 33.0 mmHg
[2020-03-31 11:41] VITALS: BP 116/32; PULSE 66; RESP 16; TEMP 36.4; O2SAT 96
--- NOTE | 2020-03-31 12:14 | PT.INTREAT ---
Date of service: 03/31/20 Time of Service: 08:30 PT Notes Visit Reasons: ACUTE EXACERBATION OF CHF Inpatient Physical Therapy Treatment Note [facility] Date: 03/31/2020 PRECAUTIONS: Fall SUBJECTIVE: Antonia is very pleasant and agreeable to participating in PT. She states that she is feeling good this morning. She reports that she gets out of breath easily with activity, even at home. She states that when she feels short of breath, she takes a break, and continues when she has recovered. OBJECTIVE: PAIN: No c/o pain BED MOBILITY/TRANSFERS Sit-stand: S Stand-sit: S Bed-Chair: S Chair-bed: S GAIT Assistive Device: No AD Weight bearing: Full Assist: SBA-S Distance: 150' x2 in a.m.; 50' + 100' + 50' + 100' in p.m. Deviation: LOB x1 (self-recovered), increased SOB, standing rest x1 due to SOB, seated rest x1 due to SOB in a.m.; Stand rest x2, seated rest x1, increased SOB in p.m. THEREX: Patient was instructed in several LE strengthening exercises, in a seated position, as per flow sheet. STAIRS: Up/down 3x4 and 2x6 using B rails and a step-over pattern with supervision ASSESSMENT: Patient tolerated session with increased SOB with activity, which was more significant in p.m. versus a.m. session, requiring several rest breaks for recovery, which per patient, is her baseline. Patient tolerated the addition of stair training, well, without complaint. PLAN: Continue with global strengthening and gait training for improved mobility and activity tolerance. TREATMENT CODE/TIME: Session 1: 20 minutes; 72754 Session 2: 25 minutes; [id number], [id number]
--- NOTE | 2020-03-31 12:49 | W.NUTRFU ---
Date of service: 03/31/20 Time of Service: 12:49 Nutritional Follow up NOTE: 85 year old female admitted with SOB, with hx of COPD, CKD, CHF and HTN. Up 9 lbs since discharge last week. Following Heart Healthy Diet with excellent intake. BMI wnl for age. Not at nutritional risk at this time. Allergic to gluten, dairy, eggs and pork, dietary aware and on ticket. Time Spent in Nutritional Counseling and Treatment: 0
[2020-03-31 15:45] VITALS: BP 100/54; PULSE 62; RESP 17; TEMP 37; O2SAT 96
--- NOTE | 2020-03-31 17:21 | W.PM.PROGNOT ---
Date of Service Date of service: 03/31/20 Time of Service: 17:21 Subjective Subjective Interval history since last seen: This is a billing encounter for a visit earlier today - see handwritten note. Objective Last Vital Signs Temp 37.0 C 03/31/20 15:45 Pulse 62 03/31/20 15:45 Resp 17 03/31/20 15:45 BP 100/54 L 03/31/20 15:45 Pulse Ox 96 03/31/20 15:45 Laboratory Results - last 24 hr 03/28/20 03/31/20 03/31/20 10:30 07:10 07:10 WBC 12.58 H RBC 3.57 L Hgb 10.0 L Hct 32.5 L MCV 91.0 MCH 28.0 MCHC 30.8 L RDW 15.4 H Plt Count 351 MPV 9.3 Immature Gran % 0.5 Neutrophils % 73.7 Lymphocytes % 12.1 Monocytes % 8.3 Eosinophils % 4.8 Basophils % 0.6 Nucleated RBC % 0 Absolute Neutrophils 9.27 H Absolute Lymphocytes 1.52 Absolute Monocytes 1.04 H Absolute Eosinophils 0.60 Absolute Basophils 0.08 Sodium 134 L Potassium 3.5 Chloride 100 Carbon Dioxide 26.5 Anion Gap 7.5 BUN 50 H Creatinine 2.20 H Estimated GFR/1.73 m2 21.26 Glucose 93 Calcium 10.1 Magnesium 2.2 SARS-CoV-2 Source Nasal/nares SARS-CoV-2 (PCR) Not detected
[2020-03-31 19:05] VITALS: BP 118/66; PULSE 69; RESP 18; TEMP 37.2; O2SAT 96
[2020-03-31] MEDS: cloNIDine 0.1 MG TAB PO (21:15)
[2020-03-31] MEDS: Acetaminophen 325 MG TAB 650 MG PO (21:15)
[2020-03-31 23:10] VITALS: BP 132/67; PULSE 66; RESP 17; TEMP 36.8; O2SAT 96
--- NOTE | 2020-04-01 | DI.RAD_ITS ---
EXAM: XR PORTABLE CHEST AP CLINICAL HISTORY: persistent SOB TECHNIQUE: 2D digital imaging was performed. COMPARISON: CR XR PORTABLE CHEST AP from 03/14/2020 CR XR CHEST 2V PA LATERAL from 03/28/2020 FINDINGS: MEDIASTINUM: Normal. HEART: Stable cardiomegaly. PULMONARY VASCULATURE: Normal. LUNGS: Stable chronic pulmonary fibrotic changes are seen in the lungs. No focal consolidating infil trates. PLEURAL SPACE: No pleural effusion or pneumothorax. BONE:Within normal limits for the patient's age. OTHER FINDINGS:The transvenous cardiac pacemaker is in stable position. IMPRESSION: No acute pulmonary findings. DATA REPOSITORY: RADIATION DOSE DELIVERED:
[2020-04-01 03:15] VITALS: BP 123/66; PULSE 62; RESP 17; TEMP 36.9; O2SAT 98
[2020-04-01 07:13] LABS: Abs Immature Grans 0.08 10^3/uL (0.0-0.06); Absolute Basophil Count 0.08 10^3/uL (0.0-0.2); Absolute Eosinophil Count 0.66 10^3/uL (0.0-0.7); Absolute Monocyte Count 0.98 10^3/uL (0.1-0.8); Basophils % 0.7; Eosinophils % 5.5; HCT 31.6 % (36.0-46.0); HGB 9.8 g/dL (11.2-15.7); Immature Grans % 0.7; Lymphocytes % 14.6; MCH 28.4 pg (27.0-33.0); MCV 91.6 fL (80-95); MPV 9.5 fL (8.0-11.0); Monocytes % 8.2; Neutrophils % 70.3; Nucleated RBC 0 %; Platelet Count 354 10^3/uL (130-400); RBC 3.45 10^6/uL (3.93-5.22); RDW 15.3 % (11.7-14.6); RDW-SD 51.3 fL; WBC 11.95 10^3/uL (4.4-10.8)
[2020-04-01 07:17] LABS: Absolute Lymphocyte Count 1.74 10^3/uL (1.2-3.4)
[2020-04-01 07:29] VITALS: BP 127/67; PULSE 60; RESP 17; TEMP 36.5; O2SAT 96
[2020-04-01 07:33] LABS: Anion Gap 7.6 mmol/L (3-11); BUN 52 mg/dL (7-18); CO2 26.4 mmol/L (21.0-32.0); Calcium 10.5 mg/dL (8.5-10.1); Chloride 102 mmol/L (98-107); Estimated GFR 25.18 (mL/min/1.73m2); Glucose 91 mg/dL (74-106); Magnesium 2.4 mg/dL (1.8-2.4); NT-proBNP 633 pg/mL (<300); Potassium 3.6 mmol/L (3.5-5.1); Sodium 136 mmol/L (136-145)
[2020-04-01] MEDS: Budesonide/Formoterol 80/4.5 6.9 GM 60 PUFF INH IH ×2 (07:42→19:41)
[2020-04-01] MEDS: Potassium Chloride 20 MEQ TABCR 40 MEQ PO ×2 (07:50→16:19)
[2020-04-01] MEDS: Cefuroxime 250 MG TAB PO ×2 (07:50→19:41)
[2020-04-01] MEDS: predniSONE 5 MG TAB PO (07:50)
[2020-04-01] MEDS: Losartan 25 MG TAB PO (07:51)
[2020-04-01] MEDS: Apixaban 2.5 MG TAB PO ×2 (07:51→19:41)
[2020-04-01] MEDS: Isosorbide Mononitrate 30 MG TABCR PO (07:51)
[2020-04-01] MEDS: Metoprolol 25 MG TAB PO ×2 (07:51→19:41)
[2020-04-01] MEDS: Pantoprazole 40 MG TABCR PO (07:52)
[2020-04-01] MEDS: Doxycycline Hyclate 100 MG CAP PO ×2 (10:06→21:17)
[2020-04-01 11:34] VITALS: BP 108/67; PULSE 61; RESP 19; TEMP 37.3; O2SAT 96
--- NOTE | 2020-04-01 11:56 | PDOC.CMPRO ---
- If Service Date Differs Date of service: 04/01/20 Time of Service: 11:56 Care Management Progress Note S/O: Antonia was sitting up in a chair when CM met with her. She was smiling and engaged readily in conversation. Antonia stated that she is not sure what the plan for discharge is yet. She gained 0.2Kg in the past 24 hours and her Lasix drip was increased a bit. She states she feels well and has been given Ermias-shaikh for her arthritic hand, which has helped. CM contacted her daughter Orly to update her but needed to leave a message, which included contact information. Per Antonia, Orly works nights and sleeps during the day. A: Antonia is a 85 year old female readmitted to [facility] on 03/28/20 for acute exacerbation of CHF. P: Anticipate Antonia will be discharged home with a resumption of Home Health nursing when medically cleared by provider. She will follow up with her PCP, fbi investigator, and plan of care as directed. Her daughter, Orly, will drive her home via private vehicle when ready. CM will continue to support patient and discharge planning needs.
--- NOTE | 2020-04-01 14:42 | PT.INTREAT ---
Date of service: 04/01/20 Time of Service: 11:30 PT Notes Visit Reasons: ACUTE EXACERBATION OF CHF Inpatient Physical Therapy Treatment Note [facility] Date: 04/01/2020 PRECAUTIONS: Fall SUBJECTIVE: Antonia is very pleasant and agreeable to participating in PT. OBJECTIVE: PAIN: No c/o pain BED MOBILITY/TRANSFERS Sit-stand: S Stand-sit: S Bed-Chair: S Chair-bed: S GAIT Assistive Device: No AD Weight bearing: Full Assist: S Distance: 250' + 150' in both a.m. and p.m. Deviation: SOB, seated rest x1 due to SOB in both a.m. and p.m. THEREX: Patient was instructed in several LE strengthening exercises, in a standing position, as per flow sheet. She demonstrates SOB with ther ex completion. STAIRS: Up/down 3x4 and 2x6 using B rails and a step-over pattern with supervision ASSESSMENT: Patient tolerated session with increased SOB with activity, although was able to tolerated increased activity prior to demonstrating significant SOB. Patient tolerated stair negotiation, well, without complaint. PLAN: Continue with global strengthening and gait training for improved mobility and activity tolerance. TREATMENT CODE/TIME: Session 1: 15 minutes; [id number] Session 2: 30 minutes; [id number], [id number]
[2020-04-01 15:40] VITALS: BP 112/66; PULSE 85; RESP 18; TEMP 37.3; O2SAT 99
--- NOTE | 2020-04-01 16:24 | W.PM.PROGNOT ---
Date of Service Date of service: 04/01/20 Time of Service: 16:24 Assessment and Plan Assessment and plan (1) Acute on chronic diastolic CHF (congestive heart failure), NYHA class 1: Status: Resolved Assessment and plan: Lasix gtt increased to 10 mg/hr today as weight went up from yesterday. Monitor lytes. Continue to monitor I/O's, daily weights (2) Pulmonary hypertension: Status: Chronic Assessment and plan: As above (3) Acute bronchitis: Status: Suspected Assessment and plan: The patient has leucocytosis and no sx other than respiratory. Leucocytosis is improving since initiation of oral abx (doxycycline/cefuroxime day 3). I am wondering if there is not a slight asthma/pulmonary fibrosis exacerbation as well. Will write for a prednisone burst. The patient has prn albuterol. Continue to monitor. (4) Acute kidney injury superimposed on chronic kidney disease: Status: Acute Assessment and plan: Stable on diuresis. Continue to monitor Cr, I/O's, daily weights. (5) Leucocytosis: Status: Acute Assessment and plan: Suspected to be due to acute bronchitis. Improving. Continue empiric abx as above. Blood cultures NGTD at 72 hrs. (6) Pulmonary fibrosis, unspecified: Status: Chronic Assessment and plan: Tx as above. Will start a prednisone burst. (7) Adrenal insufficiency: Status: Chronic Assessment and plan: Continue prednisone. Might require a taper (8) PAF (paroxysmal atrial fibrillation): Status: Chronic Assessment and plan: Continue apixaban and metoprolol (9) Presence of permanent cardiac pacemaker: Status: Chronic Assessment and plan: As above. Blood cultures negative. No arrhythmias on tele. (10) DVT prophylaxis: Status: Acute Assessment and plan: On therapeutic eliquis (11) Discharge planning issues: Status: Acute Assessment and plan: DNR/DNI. Continues to require hospitalization. Subjective Subjective Interval history since last seen: Antonia states that she feels better today, but she did still get quite SOB while walking. Denies dizziness, chest pain, shortness of breath, nausea. States that her hands and legs feel better - less swollen. Exam Narrative Exam Narrative: General: pleasant elderly female, A&Ox3, not dyspneic today HEENT: EOMI today, MMM Heart: irregularly irregular rhythm, +quiet JENNIFER Lungs: coarse breath sounds at R base, clear on the left Abdomen: soft, nontender, nondistended Extremities: not wearing TEDs today, trace pitting edema through BLEs, improved Objective Last Vital Signs Temp 37.3 C 04/01/20 15:40 Pulse 85 04/01/20 15:40 Resp 18 04/01/20 15:40 BP 112/66 04/01/20 15:40 Pulse Ox 99 04/01/20 15:40 Laboratory Results - last 24 hr 04/01/20 04/01/20 06:15 06:15 WBC 11.95 H RBC 3.45 L Hgb 9.8 L Hct 31.6 L MCV 91.6 MCH 28.4 MCHC 31.0 L RDW 15.3 H Plt Count 354 MPV 9.5 Immature Gran % 0.7 Neutrophils % 70.3 Lymphocytes % 14.6 Monocytes % 8.2 Eosinophils % 5.5 Basophils % 0.7 Nucleated RBC % 0 Absolute Neutrophils 8.40 H Absolute Lymphocytes 1.74 Absolute Monocytes 0.98 H Absolute Eosinophils 0.66 Absolute Basophils 0.08 Sodium 136 Potassium 3.6 Chloride 102 Carbon Dioxide 26.4 Anion Gap 7.6 BUN 52 H Creatinine 1.90 H Estimated GFR/1.73 m2 25.18 Glucose 91 Calcium 10.5 H Magnesium 2.4 NT-Pro-B Natriuret Pep 633 H Objective Narrative Objective Narrative: CXR: No acute pulmonary findings.
[2020-04-01] MEDS: predniSONE 20 MG TAB 40 MG PO (17:13)
[2020-04-01 19:56] VITALS: BP 130/64; PULSE 64; RESP 18; TEMP 36.2; O2SAT 94
[2020-04-01] MEDS: cloNIDine 0.1 MG TAB PO (21:17)
[2020-04-01] MEDS: Acetaminophen 325 MG TAB 650 MG PO (21:17)
[2020-04-01 23:05] VITALS: BP 133/73; PULSE 62; RESP 17; TEMP 36.8; O2SAT 97
[2020-04-02 03:05] VITALS: BP 105/60; PULSE 66; RESP 18; TEMP 36.5; O2SAT 97
[2020-04-02 07:14] LABS: Abs Immature Grans 0.06 10^3/uL (0.0-0.06); Absolute Basophil Count 0.02 10^3/uL (0.0-0.2); Absolute Lymphocyte Count 0.95 10^3/uL (1.2-3.4); Absolute Monocyte Count 0.25 10^3/uL (0.1-0.8); Basophils % 0.2; HCT 32.9 % (36.0-46.0); HGB 10.1 g/dL (11.2-15.7); Immature Grans % 0.7; Lymphocytes % 11.6; MCH 28.2 pg (27.0-33.0); MCHC 30.7 % (32.0-36.0); MCV 91.9 fL (80-95); MPV 9.6 fL (8.0-11.0); Monocytes % 3.1; Neutrophils % 84.4; Nucleated RBC 0 %; Platelet Count 382 10^3/uL (130-400); RBC 3.58 10^6/uL (3.93-5.22); RDW-SD 50.6 fL; WBC 8.18 10^3/uL (4.4-10.8)
[2020-04-02 07:17] VITALS: BP 135/70; PULSE 74; RESP 14; TEMP 36.1; O2SAT 98
[2020-04-02] MEDS: Budesonide/Formoterol 80/4.5 6.9 GM 60 PUFF INH IH ×2 (07:33→20:19)
[2020-04-02 07:42] LABS: BUN 55 mg/dL (7-18); CO2 22.9 mmol/L (21.0-32.0); CREATININE 1.97 mg/dL (0.55-1.02); Calcium 10.4 mg/dL (8.5-10.1); Estimated GFR 24.15 (mL/min/1.73m2); Glucose 111 mg/dL (74-106); Magnesium 2.3 mg/dL (1.8-2.4)
[2020-04-02] MEDS: Cefuroxime 250 MG TAB PO (08:47)
[2020-04-02] MEDS: Losartan 25 MG TAB PO (08:47)
[2020-04-02] MEDS: predniSONE 20 MG TAB 40 MG PO (08:47)
[2020-04-02] MEDS: Apixaban 2.5 MG TAB PO ×2 (08:48→20:19)
[2020-04-02] MEDS: Isosorbide Mononitrate 30 MG TABCR PO (08:48)
[2020-04-02] MEDS: predniSONE 5 MG TAB PO (08:48)
[2020-04-02] MEDS: Pantoprazole 40 MG TABCR PO (08:48)
[2020-04-02] MEDS: Metoprolol 25 MG TAB PO ×2 (08:48→20:19)
[2020-04-02] MEDS: Potassium Chloride 20 MEQ TABCR 40 MEQ PO (08:48)
[2020-04-02 09:06] LABS: Sodium 138 mmol/L (136-145)
[2020-04-02 09:09] LABS: Anion Gap 13.1 mmol/L (3-11); Chloride 102 mmol/L (98-107)
[2020-04-02] MEDS: Normal Saline Flush 10 ML SYR IVP (09:34)
[2020-04-02] MEDS: Furosemide 40 MG/4 ML VIAL IVP (09:35)
--- NOTE | 2020-04-02 09:54 | PDOC.CMPRO ---
- If Service Date Differs Date of service: 04/02/20 Time of Service: 09:54 Care Management Progress Note S/O: Antonia was sitting up in a chair having just worked with PT when CM came to see her. She was, as usual, in good spirits and agreeable to conversation. Antonia shared that her doctor told her that the reason she has been gaining weight is because she is on steroids. An extra dose of IV Lasix was given this morning to help increase weight and fluid loss. CM updated Antonia's daughter Orly this morning and answered her questions which were about her medications. A: Antonia is a 85 year old female readmitted to [facility] on 03/28/20 for acute exacerbation of CHF. P: Antonia will be discharged home with a resumption of Home Health nursing when medically cleared by provider. She will follow up with her PCP, information and data architect analyst, and plan of care as directed. Her daughter, Orly, will drive her home via private vehicle when ready. CM will continue to support patient, family and discharge planning needs.
--- NOTE | 2020-04-02 10:16 | W.PM.PROGNOT ---
Date of Service Date of service: 04/02/20 Time of Service: 10:16 Assessment and Plan Assessment and plan (1) Acute on chronic diastolic CHF (congestive heart failure), NYHA class 1: Status: Resolved Assessment and plan: Given the patient's excessive PO water intake, institute a 1500 cc fluid restriction. Written for 1 dose of 40 mg of IV lasix today. Continue Lasix gtt (10 mg/hr) - weight went up again. Monitor lytes. Continue to monitor I/O's, daily weights (2) Pulmonary hypertension: Status: Chronic Assessment and plan: As above (3) Acute bronchitis: Status: Acute Assessment and plan: Leucocytosis resolved since initiation of oral abx (doxycycline/cefuroxime day 4/5). Start to taper steroids. The patient has prn albuterol. Continue to monitor. (4) Acute kidney injury superimposed on chronic kidney disease: Status: Acute Assessment and plan: Stable on diuresis. Continue to monitor Cr, I/O's, daily weights. (5) Leucocytosis: Status: Resolved Assessment and plan: Due to acute bronchitis. Resolved. Continue empiric abx as above. Blood cultures NGTD at 72 hrs. (6) Pulmonary fibrosis, unspecified: Status: Chronic Assessment and plan: Tx as above. Start to taper prednisone. (7) Adrenal insufficiency: Status: Chronic Assessment and plan: Continue prednisone. Might require a taper (8) PAF (paroxysmal atrial fibrillation): Status: Chronic Assessment and plan: Continue apixaban and metoprolol (9) Presence of permanent cardiac pacemaker: Status: Chronic Assessment and plan: As above. Blood cultures negative. No arrhythmias on tele. (10) DVT prophylaxis: Status: Acute Assessment and plan: On therapeutic eliquis (11) Discharge planning issues: Status: Acute Assessment and plan: DNR/DNI. Continues to require hospitalization. Subjective Subjective Interval history since last seen: Ms Win states that she is short of breath, but better. She did note that she gained weight sleeping. She confessed to me that she has been drinking 4-5 jugs of water/day (>2000 cc/day), here and at home. We talked about fluid restriction, which I am instituting. Denies dizziness, chest pain, nausea, vomiting. Hands feel better since steroid burst. Exam Narrative Exam Narrative: General: pleasant elderly female, A&Ox3, face slightly more edematous today than yesterday HEENT: EOMI today, MMM, facial edema slightly more noticeable today Heart: irregularly irregular rhythm, +quiet JENNIFER Lungs: crackles R lung base, clear on the left Abdomen: soft, nontender, nondistended Extremities: not wearing TEDs , +1 pitting edema through BLEs, slightly worse than yesterday Objective Last Vital Signs Temp 36.1 C L 04/02/20 07:17 Pulse 74 04/02/20 07:17 Resp 14 04/02/20 07:17 BP 135/70 04/02/20 07:17 Pulse Ox 98 04/02/20 07:17 Laboratory Results - last 24 hr 04/02/20 04/02/20 06:15 06:15 WBC 8.18 D RBC 3.58 L Hgb 10.1 L Hct 32.9 L MCV 91.9 MCH 28.2 MCHC 30.7 L RDW 15.0 H Plt Count 382 MPV 9.6 Immature Gran % 0.7 Neutrophils % 84.4 Lymphocytes % 11.6 Monocytes % 3.1 Eosinophils % 0.0 Basophils % 0.2 Nucleated RBC % 0 Absolute Neutrophils 6.90 H Absolute Lymphocytes 0.95 L Absolute Monocytes 0.25 Absolute Eosinophils 0.00 Absolute Basophils 0.02 Sodium 138 Potassium 4.0 Chloride 102 Carbon Dioxide 22.9 Anion Gap 13.1 H BUN 55 H Creatinine 1.97 H Estimated GFR/1.73 m2 24.15 Glucose 111 H Calcium 10.4 H Magnesium 2.3
[2020-04-02] MEDS: Doxycycline Hyclate 100 MG CAP PO ×2 (10:49→21:13)
[2020-04-02 11:11] VITALS: BP 108/56; PULSE 70; RESP 20; TEMP 36.3; O2SAT 96
--- NOTE | 2020-04-02 11:39 | PT.INTREAT ---
Date of service: 04/02/20 Time of Service: 10:20 PT Notes Visit Reasons: ACUTE EXACERBATION OF CHF Inpatient Physical Therapy Treatment Note [facility] Date: 04/02/2020 PRECAUTIONS: Fall SUBJECTIVE: Antonia is very pleasant and agreeable to participating in PT. She reports that she transfers and ambulates within her room independently with the IV pole and Nieves catheter, and feels safe and confident doing so. OBJECTIVE: PAIN: No c/o pain BED MOBILITY/TRANSFERS Sit-stand: I Stand-sit: I Bed-Chair: I Chair-bed: I GAIT Assistive Device: No AD Weight bearing: Full Assist: S Distance: 250' + 150' Deviation: SOB, seated rest x1, standing rest x1, management of IV pole and Nieves catheter x150' STAIRS: Up/down 6x4 and 4x6 using B rails and a step-over pattern with supervision ASSESSMENT: Patient tolerated session with increased SOB with activity, although was able to tolerate increased activity prior to demonstrating significant SOB. Patient tolerated stair negotiation, well, without complaint. PLAN: Continue with global strengthening and gait training for continued progression toward baseline level of function. TREATMENT CODE/TIME: Session 1: 25 minutes; [id number] x2
[2020-04-02 14:10] LABS: Anion Gap 12.5 mmol/L (3-11); BUN 55 mg/dL (7-18); CO2 22.5 mmol/L (21.0-32.0); CREATININE 2.59 mg/dL (0.55-1.02); Chloride 98 mmol/L (98-107); Estimated GFR 17.61 (mL/min/1.73m2); Glucose 128 mg/dL (74-106); Potassium 4.5 mmol/L (3.5-5.1); Sodium 133 mmol/L (136-145)
[2020-04-02 16:12] VITALS: BP 119/69; PULSE 91; RESP 19; TEMP 36.7; O2SAT 97
[2020-04-02 19:40] VITALS: BP 131/70; PULSE 74; RESP 18; TEMP 36.7; O2SAT 97
[2020-04-02] MEDS: cloNIDine 0.1 MG TAB PO (21:13)
[2020-04-02] MEDS: Acetaminophen 325 MG TAB 650 MG PO (21:13)
[2020-04-02 23:15] VITALS: BP 127/68; PULSE 60; RESP 17; TEMP 36.7; O2SAT 97
[2020-04-03] VITALS (8 sets, daily range): BP systolic 113–148; BP diastolic 62–77; PULSE 65–83; RESP 14–22; TEMP 36.3–37; O2SAT 97–99
[2020-04-03] MEDS: Acetaminophen 325 MG TAB 650 MG PO ×2 (03:13→19:38)
[2020-04-03 07:57] LABS: Anion Gap 9.7 mmol/L (3-11); BUN 61 mg/dL (7-18); CO2 24.3 mmol/L (21.0-32.0); CREATININE 2.08 mg/dL (0.55-1.02); Calcium 10.2 mg/dL (8.5-10.1); Chloride 102 mmol/L (98-107); Estimated GFR 22.69 (mL/min/1.73m2); Glucose 94 mg/dL (74-106); Magnesium 2.3 mg/dL (1.8-2.4); Potassium 3.7 mmol/L (3.5-5.1); Sodium 136 mmol/L (136-145)
[2020-04-03] MEDS: Budesonide/Formoterol 80/4.5 6.9 GM 60 PUFF INH IH ×2 (08:18→19:38)
[2020-04-03] MEDS: predniSONE 5 MG TAB PO (08:56)
[2020-04-03] MEDS: Potassium Chloride 20 MEQ TABCR 40 MEQ PO (08:56)
[2020-04-03] MEDS: Cefuroxime 250 MG TAB PO (08:56)
[2020-04-03] MEDS: predniSONE 10 MG TAB 30 MG PO (08:56)
[2020-04-03] MEDS: Metoprolol 25 MG TAB PO ×2 (08:57→19:38)
[2020-04-03] MEDS: Isosorbide Mononitrate 30 MG TABCR PO (08:57)
[2020-04-03] MEDS: Apixaban 2.5 MG TAB PO ×2 (08:57→19:38)
[2020-04-03] MEDS: Pantoprazole 40 MG TABCR PO (08:57)
[2020-04-03] MEDS: Albuterol HFA 18 GM 200 PUFF INH IH (09:38)
--- NOTE | 2020-04-03 10:04 | PDOC.CMPRO ---
- If Service Date Differs Date of service: 04/03/20 Time of Service: 10:04 Care Management Progress Note S/O: Antonia was sitting up in a chair when CM met with her. As usual, she was pleasant and interactive. Antonia shared that her doctor told her that the reason she has been gaining weight is because she is on steroids. An extra dose of IV Lasix was given this morning to help increase weight and fluid loss. CM updated Antonia's daughter Orly this morning and answered her questions which were about her medications. A: Antonia is a 85 year old female readmitted to [facility] on 03/28/20 for acute exacerbation of CHF. P: Antonia will be discharged home with a resumption of Home Health nursing when medically cleared by provider. She will follow up with her PCP, biomechanical engineer, and plan of care as directed. Her daughter, Orly, will drive her home via private vehicle when ready. CM will continue to support patient, family and discharge planning needs.
[2020-04-03] MEDS: Doxycycline Hyclate 100 MG CAP PO ×2 (10:37→21:19)
--- NOTE | 2020-04-03 12:16 | W.PM.PROGNOT ---
Date of Service Date of service: 04/03/20 Time of Service: 12:16 Assessment and Plan Assessment and plan (1) Acute on chronic diastolic CHF (congestive heart failure), NYHA class 1: Status: Acute Assessment and plan: Improving. Given the patient's excessive PO water intake, institute a 1500 cc fluid restriction. Continue Lasix gtt (10 mg/hr) - weight better today. Monitor lytes. Continue to monitor I/O's, daily weights (2) Pulmonary hypertension: Status: Chronic Assessment and plan: As above (3) Acute bronchitis: Status: Resolved Assessment and plan: Leucocytosis resolved since initiation of oral abx. D/c abx today. Continue to taper steroids. The patient has prn albuterol. (4) Acute kidney injury superimposed on chronic kidney disease: Status: Acute Assessment and plan: We have d/c'ed losartan as the patient does not have systolic dysfunction - and we need the renal function to diurese the patient. I do not know if she will need this on discharge. Will monitor BP. Continue to monitor Cr, I/O's, daily weights. (5) Leucocytosis: Status: Resolved Assessment and plan: Due to acute bronchitis. Resolved. Finish antibiotics today. Blood cultures NGTD. (6) Pulmonary fibrosis, unspecified: Status: Chronic Assessment and plan: Tx as above. Continue steroid taper. (7) Adrenal insufficiency: Status: Chronic Assessment and plan: Continue prednisone taper (home dose 5 mg). (8) PAF (paroxysmal atrial fibrillation): Status: Chronic Assessment and plan: Continue apixaban and metoprolol (9) Presence of permanent cardiac pacemaker: Status: Chronic Assessment and plan: As above. Blood cultures negative. No arrhythmias on tele. Tele d/c'ed. (10) DVT prophylaxis: Status: Acute Assessment and plan: On therapeutic eliquis (11) Discharge planning issues: Status: Acute Assessment and plan: DNR/DNI. Continues to require hospitalization. I expect discharge home on Tuesday. Subjective Subjective Patient reports: no new complaints Interval history since last seen: Ms Win states she is feeling better today. She got less winded while walking with PT. She denies dizziness, chest pain, shortness of breath, nausea. Her legs are still a little swollen, but getting better. She is adhering to 1500 cc fluid restriction. We talked what water balance means, and how as long as she drinks more than she urinates out, she will continue to gain weight. She stated she recognized she drinks too much water at home, hoping it would flush system out. She thinks she will be ready to go home by Tuesday. Exam Narrative Exam Narrative: General: pleasant elderly female, A&Ox3, looks generally less puffy than yesterday HEENT: slightly disconjugate gaze, MMM Heart: RRR, +quiet JENNIFER Lungs: crackles and wheezing R lung base, clear on the left Abdomen: soft, nontender, nondistended Extremities: not wearing TEDs , +1 pitting edema through BLEs, wrinkles seen, better than yesterday Objective Last Vital Signs Temp 37.0 C 04/03/20 11:07 Pulse 72 04/03/20 11:07 Resp 22 04/03/20 11:07 BP 113/62 04/03/20 11:07 Pulse Ox 97 04/03/20 11:07 Laboratory Results - last 24 hr 04/02/20 04/03/20 13:55 07:10 Sodium 133 L 136 Potassium 4.5 3.7 Chloride 98 102 Carbon Dioxide 22.5 24.3 Anion Gap 12.5 H 9.7 BUN 55 H 61 H Creatinine 2.59 H 2.08 H Estimated GFR/1.73 m2 17.61 22.69 Glucose 128 H 94 Calcium 10.0 10.2 H Magnesium 2.3
--- NOTE | 2020-04-03 14:13 | PT.INTREAT ---
Date of service: 04/03/20 Time of Service: 10:30 PT Notes Visit Reasons: ACUTE EXACERBATION OF CHF Inpatient Physical Therapy Treatment Note [facility] Date: 04/03/2020 PRECAUTIONS: Fall SUBJECTIVE: Antonia is very pleasant and agreeable to participating in PT. She believes she is to be discharged to home on Tuesday, which she is looking forward to. OBJECTIVE: Patient has been deemed appropriate for independent transfers and ambulation within her room at this time. PAIN: No c/o pain BED MOBILITY/TRANSFERS Sit-stand: I Stand-sit: I Bed-Chair: I Chair-bed: I GAIT Assistive Device: No AD Weight bearing: Full Assist: S Distance: 150' x2 Deviation: Seated rest x1, management of IV pole and Nieves catheter THEREX: Patient was instructed in a resisted UE and LE strengthening program, in a standing position, as per flow sheet. STAIRS: Up/down 3x4 and 2x6 using U rails and a step-over pattern, independently ASSESSMENT: Patient tolerated session with increased SOB with activity, although was able to tolerate increased activity prior to demonstrating significant SOB. Patient tolerated the progression in ther ex program, well, without complaint. PLAN: Continue with global strengthening and gait training for continued progression toward baseline level of function. TREATMENT CODE/TIME: 25 minutes; [id number], [id number]
[2020-04-03] MEDS: cloNIDine 0.1 MG TAB PO (21:19)
[2020-04-04 07:01] LABS: Anion Gap 12.3 mmol/L (3-11); CO2 23.7 mmol/L (21.0-32.0); CREATININE 2.08 mg/dL (0.55-1.02); Calcium 10.4 mg/dL (8.5-10.1); Chloride 101 mmol/L (98-107); Estimated GFR 22.69 (mL/min/1.73m2); Glucose 94 mg/dL (74-106); Magnesium 2.5 mg/dL (1.8-2.4); Potassium 3.4 mmol/L (3.5-5.1); Sodium 137 mmol/L (136-145)
[2020-04-04 07:19] LABS: BUN 84 mg/dL (7-18)
[2020-04-04] MEDS: Budesonide/Formoterol 80/4.5 6.9 GM 60 PUFF INH IH ×2 (07:27→19:23)
[2020-04-04 07:40] VITALS: BP 160/94; PULSE 78; RESP 19; TEMP 36.7; O2SAT 99
[2020-04-04] MEDS: predniSONE 5 MG TAB PO (07:54)
[2020-04-04] MEDS: Isosorbide Mononitrate 30 MG TABCR PO (07:54)
[2020-04-04] MEDS: Metoprolol 25 MG TAB PO ×2 (07:54→19:23)
[2020-04-04] MEDS: Apixaban 2.5 MG TAB PO ×2 (07:54→19:23)
[2020-04-04] MEDS: Potassium Chloride 20 MEQ TABCR 40 MEQ PO ×2 (07:54→15:51)
[2020-04-04] MEDS: Pantoprazole 40 MG TABCR PO (07:54)
[2020-04-04] MEDS: predniSONE 10 MG TAB 30 MG PO (07:54)
--- NOTE | 2020-04-04 09:34 | PDOC.CMPRO ---
- If Service Date Differs Date of service: 04/04/20 Time of Service: 09:34 Care Management Progress Note S/O: Antonia was sitting up in her chair when CM met with her. She was smiling and pleasant and engaged readily in conversation. Antonia shared that since she is receiving another dose of IV Lasix, she is not likely to be discharged today. She continues to feel good and notes improvement.The plan is for her to go home tomorrow. Antonia continues to diurese and her weight is gradually coming down. Antonia's daughter Orly was updated about the discharge plan via phone message. A: Antonia is a 85 year old female readmitted to [facility] on 03/28/20 for acute exacerbation of CHF. P: Antonia will be discharged home with a resumption of Home Health nursing, likely tomorrow. 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 Her daughter, Orly, will drive her home via private vehicle when ready. CM will continue to support patient, family and discharge planning needs.
[2020-04-04 12:03] VITALS: BP 155/71; PULSE 75; RESP 17; TEMP 36.6; O2SAT 96
--- NOTE | 2020-04-04 12:47 | PTTR_ITS ---
Date of service: 04/04/20 Time of Service: 08:30 PT Notes Visit Reasons: ACUTE EXACERBATION OF CHF Inpatient Physical Therapy Treatment Note [facility] Date: 04/04/2020 PRECAUTIONS: Fall SUBJECTIVE: Antonia is very pleasant and agreeable to participating in PT. She believes she is to be discharged to home on Tuesday, which she is looking forward to. OBJECTIVE: Patient has been deemed appropriate for independent transfers and ambulation within her room at this time. PAIN: No c/o pain BED MOBILITY/TRANSFERS Sit-stand: I Stand-sit: I Bed-Chair: I Chair-bed: I GAIT Assistive Device: No AD Weight bearing: Full Assist: S Distance: 150' x2 Deviation: Seated rest x1 THEREX: Patient was instructed in a resisted UE strengthening program, in a standing position on an Airex pad, as per flow sheet. She also completes walking with head turns, cervical flexion/extension, and high knee marches. ASSESSMENT: Patient tolerated session with slightly increased SOB with activity, she continues to demonstrate increased activity tolerance prior to d emonstrating significant SOB. Patient tolerated the progression in ther ex program, well, without complaint. PLAN: Continue with global strengthening and gait training for continued progression toward baseline level of function. TREATMENT CODE/TIME: 30 minutes; [id number], [id number]
--- NOTE | 2020-04-04 14:07 | CHAPLAIN ---
Antonia and I remembered each other from previous admissions. She said she may be discharged tomorrow or Tuesday. Antonia lives with her daughter. Her lives at [facility] in [place], [place]. Antonia used to visit daily, until COVID precautions cut out visitations. Antonia shared some personal history, telling me about growing up in [place], meeting Brandon when she was 15 and getting a year later. They will celebrate their anniversary next week. She phones Brandon in the mornings because he is often more clear then.
--- NOTE | 2020-04-04 15:17 | W.PM.PROGNOT ---
Date of Service Date of service: 04/04/20 Time of Service: 15:17 Assessment and Plan Assessment and plan (1) Acute on chronic diastolic CHF (congestive heart failure), NYHA class 1: Status: Acute Assessment and plan: Improving. Continue 1500 cc fluid restriction. D/c lasix gtt and transition to torsemide 60 mg PO BID. Monitor lytes. Continue to monitor I/O's, daily weights Suspect can be discharged home tomorrow WITH A FLUID RESTRICTION. (2) Pulmonary hypertension: Status: Chronic Assessment and plan: As above (3) Acute bronchitis: Status: Resolved Assessment and plan: Leucocytosis resolved since initiation of oral abx, which she has now finished. Continue to taper steroids. The patient has prn albuterol. (4) Acute kidney injury superimposed on chronic kidney disease: Status: Acute Assessment and plan: We have d/c'ed losartan as the patient does not have systolic dysfunction - and we need the renal function to diurese the patient. I do not know if she will need this on discharge. Will monitor BP. Continue to monitor Cr, I/O's, daily weights. Given high doses of diuretics, the patient should be referred to nephrology as outpatient. (5) Leucocytosis: Status: Resolved Assessment and plan: Due to acute bronchitis. Resolved. Finish antibiotics today. Blood cultures NGTD. (6) Pulmonary fibrosis, unspecified: Status: Chronic Assessment and plan: Tx as above. Continue steroid taper. (7) Adrenal insufficiency: Status: Chronic Assessment and plan: Continue prednisone taper (+ home dose 5 mg). (8) PAF (paroxysmal atrial fibrillation): Status: Chronic Assessment and plan: Continue apixaban and metoprolol (9) Presence of permanent cardiac pacemaker: Status: Chronic Assessment and plan: As above. Blood cultures negative. No arrhythmias on tele. Tele d/c'ed. (10) DVT prophylaxis: Status: Acute Assessment and plan: On therapeutic eliquis (11) Discharge planning issues: Status: Acute Assessment and plan: DNR/DNI. Plan for discharge home tomorrow. Subjective Subjective Interval history since last seen: Ms Win states that she is feeling significantly better - she noticed improvement especially so over the last 2 days, since she has been adhering to the fluid restriction. Denies dizziness, chest pain, shortness of breath at rest (still gets quite tired with activity), nausea, vomiting. She thinks she might be ready to go home tomorrow. Exam Narrative Exam Narrative: General: pleasant elderly female, A&Ox3, Looks overall less edematous HEENT: slightly disconjugate gaze, MMM Heart: RRR, +quiet JENNIFER Lungs: decreased rales at R base; no w/r/r on the left. Abdomen: soft, nontender, nondistended Extremities: not wearing TEDs , +1 pitting edema through BLEs, wrinkles seen, better Objective Last Vital Signs Temp 36.6 C 04/04/20 12:03 Pulse 75 04/04/20 12:03 Resp 17 04/04/20 12:03 BP 155/71 H 04/04/20 12:03 Pulse Ox 96 04/04/20 12:03 Laboratory Results - last 24 hr 04/04/20 06:25 Sodium 137 Potassium 3.4 L Chloride 101 Carbon Dioxide 23.7 Anion Gap 12.3 H BUN 84 H* D Creatinine 2.08 H Estimated GFR/1.73 m2 22.69 Glucose 94 Calcium 10.4 H Magnesium 2.5 H
[2020-04-04 15:25] VITALS: BP 151/71; PULSE 74; RESP 18; TEMP 36.7; O2SAT 98
[2020-04-04] MEDS: Torsemide 20 MG TAB 60 MG PO (15:51)
[2020-04-04 19:23] VITALS: BP 148/77; PULSE 75; RESP 20; TEMP 37; O2SAT 97
[2020-04-04] MEDS: cloNIDine 0.1 MG TAB PO (21:18)
[2020-04-05 00:05] VITALS: BP 133/74; PULSE 68; RESP 18; TEMP 37; O2SAT 96
[2020-04-05 03:25] VITALS: BP 151/76; PULSE 77; RESP 17; TEMP 36.7; O2SAT 97
[2020-04-05 07:50] VITALS: BP 139/76; PULSE 66; RESP 18; TEMP 36.9; O2SAT 96
[2020-04-05 07:56] LABS: Anion Gap 12.1 mmol/L (3-11); CO2 27.9 mmol/L (21.0-32.0); CREATININE 1.96 mg/dL (0.55-1.02); Calcium 10.8 mg/dL (8.5-10.1); Chloride 99 mmol/L (98-107); Glucose 90 mg/dL (74-106); Magnesium 2.6 mg/dL (1.8-2.4); Potassium 3.3 mmol/L (3.5-5.1); Sodium 139 mmol/L (136-145)
[2020-04-05] MEDS: predniSONE 10 MG TAB 25 MG PO (07:59)
[2020-04-05 08:00] LABS: BUN 86 mg/dL (7-18)
[2020-04-05] MEDS: Apixaban 2.5 MG TAB PO (08:00)
[2020-04-05] MEDS: Metoprolol 25 MG TAB PO (08:00)
[2020-04-05] MEDS: Pantoprazole 40 MG TABCR PO (08:00)
[2020-04-05] MEDS: Torsemide 20 MG TAB 60 MG PO (08:00)
[2020-04-05] MEDS: Potassium Chloride 20 MEQ TABCR 40 MEQ PO ×2 (08:00→08:53)
[2020-04-05] MEDS: Isosorbide Mononitrate 30 MG TABCR PO (08:00)
[2020-04-05] MEDS: predniSONE 5 MG TAB PO (08:01)
[2020-04-05] MEDS: Budesonide/Formoterol 80/4.5 6.9 GM 60 PUFF INH IH (08:03)
--- NOTE | 2020-04-05 08:42 | W.PM.DS.N ---
Date of service: 04/05/20 Time of Service: 08:45 DS: Diagnosis Discharge Diagnosis (1) Acute on chronic diastolic CHF (congestive heart failure), NYHA class 1: Start date: 04/05/20 Start time: 08:49 Status: Chronic Asessment and Plan: Improved. No edema, wt is down to 55 kg, tolerating torsemide 60 mg BID, will need BMP in 3 days to monitor renal function She does have a chronic crackle to RLL Continue 1500 ml Fluid Restriction, Continue to monitor daily weights at home. F/u with cardiology, PCP and nephrology (2) Pulmonary hypertension: Start date: 04/05/20 Start time: 08:55 Status: Chronic Asessment and Plan: As above,due to this allow for a slight higher creatinine, will need follow up with nephrology (3) Acute bronchitis: Start date: 04/05/20 Start time: 08:58 Status: Resolved Asessment and Plan: Will continue steroid taper until baseline prednisone Finished course of antibiotics Improved breathing (4) Acute kidney injury superimposed on chronic kidney disease: Start date: 04/05/20 Start time: 09:04 Status: Resolved Asessment and Plan: Creatinine improved around baseline. (5) Leucocytosis: Start date: 04/05/20 Start time: 09:07 Status: Resolved Asessment and Plan: Due to bronchitis, resolved with antibiotics Blood cultures NGTD (6) Pulmonary fibrosis, unspecified: Start date: 04/05/20 Start time: 09:07 Status: Chronic (7) Adrenal insufficiency: Start date: 04/05/20 Start time: 09:11 Status: Chronic Asessment and Plan: Continue prednisone taper until baseline 5 mg (8) PAF (paroxysmal atrial fibrillation): Start date: 04/05/20 Start time: 09:12 Status: Chronic Asessment and Plan: Continue apixaban and metoprolol above case discussed with Dr. Wade who is in agreement (9) Chronic kidney disease: Status: Acute Discharge Plan Disposition Patient Disposition: HOME W/HOME HEALTH SERVICE Condition: Good Discharge Details Reason For Visit: ACUTE EXACERBATION OF CHF Admit Date/Time: 03/28/20 11:28 Admit Provider: Rashi Romero Attending Provider: Rashi Romero Primary Care Provider: Cara Doll Hospital Course Hospital Course: 85 y.o female admitted to [facility] for increased SOB and edema. PMH includes acute on chronic diastolic/systolic CHF, Afib, CKD, COPD, HTN, PHTN previously hospitalized at [facility] 03/14-03/20 for CHF. On discharge torsemide was held d/t renal function concerns with repeat BMP in 3-4 days of discharge, however at that time she had developed SOB with edema; despite restarting torsemide she had no improvement and her wt increased 9 lbs since discharge. She was asked to be directly admitted from cardiology. Over course of treatment she was placed on a lasix drip. It was also discovered that she is drinking 3-4 L of water at home. She was placed on 1500 cc fluid restriction in addition to lasix drip. Today she feels good. Her wt is down to 55.2 kg. She has no JVD or edema. She was also found to have Acute on chronic kidney injury which has resolved. She will need follow up with nephrology given her dose of torsemide required for PHTN and CHF. She was also treated for bronchitis with doxy and ceftin for 5 days with resolution of sx and leukocytosis. We will continue her steroid taper until she is baseline. Recommend follow up with PCP in 1 week, cardiology 1-2 weeks and nephrology as new patient. She should continue the 1500 cc fluid restriction and weight herself daily. She is being discharged home with Resumption of nursing services. Home Meds and New Rx's Prescriptions: New prednisone 10 mg Tablet 25 mg PO DAILY Qty: 2 RF: 0 potassium chloride [Klor-Con M20] 20 mEq Tablet,Er Particles/Crystals 40 meq PO DAILY Qty: 20 RF: 0 torsemide 20 mg tablet 60 mg PO DAILY Qty: 120 RF: 0 prednisone 5 mg tablet 5 mg PO DAILY Qty: 37 RF: 0 Continued sennosides [Senokot] 8.6 mg tablet 8.6 mg PO HS PRNRF: 0 albuterol sulfate [Ventolin HFA] 90 mcg/actuation HFA aerosol inhaler 2 puff IH Q4H PRNRF: 0 polyethylene glycol 3350 17 gram powder in packet 17 g PO DAILY PRNRF: 0 docusate sodium [Colace] 100 mg capsule 100 mg PO TID PRNRF: 0 clonidine HCl 0.1 mg tablet 0.1 mg PO QHS RF: 0 prednisone 2.5 mg tablet 5 mg PO DAILY RF: 0 metoprolol tartrate 25 MG tablet 25 mg PO BID RF: 0 Eliquis 2.5 MG tablet 2.5 mg PO BID RF: 0 losartan 25 mg tablet 25 mg PO DAILY Qty: 30 RF: 12 isosorbide mononitrate 30 mg tablet extended release 24 hr 30 mg PO DAILY Qty: 90 RF: 3 pantoprazole 40 mg Tablet,Delayed Release (Dr/Ec) 40 mg PO DAILY RF: 0 theophylline 400 mg Tablet Extended Release 24 Hr 200 mg PO DAILY RF: 0 Discontinued potassium chloride [Klor-Con M20] 20 mEq tablet,ER particles/crystals 20 meq PO Q2D RF: 0 torsemide 20 mg tablet See Rx Instructions .ROUTE .COMPLEX Qty: 180 RF: 3 No Action Breo Ellipta 200-25 mcg/dose blister with device 1 inh INHALATION DAILY RF: 0 Discharge Instructions Instructions: Heart Failure (DC), Pulmonary Arterial Hypertension (DC), Leg Edema (ED), Fluid Restriction (DC), Left-sided and Right-sided Heart Failure (DC) Additional Instructions: Follow up with your PCP in 1 week. Follow up with cardiology in 1-2 weeks Follow up with nephrology Continue 1500 ml fluid restriction. Weight yourself daily if you have greater than 3 lb wt gain in 2 days call your PCP immediately Take Torsemide twice a day with potassium daily Repeat blood work in 3 days. Take prednisone taper as follows in addition to 5 mg daily dose: 25 mg daily x 2 days 20 mg daily x 3 days 15 mg daily x 3 days 10 mg daily x 3 days 5 mg x 3 days resume normal 5 mg dosing Activity:: Activity as Tolerated Equipment/Supplies:: No Equipment Needed Diet:: Low Sodium Discharge Orders Other Ambulatory Orders: Basic Metabolic Panel (Routine) Location: None Selected Ordered By: Jasmyn Lin DS: Summary Status at Discharge Functional status at discharge: independent ambulation Overall status at discharge: patient is back to baseline Mental Status: mental status grossly normal Speech and Movement: speech and movement normal Mood: congruent mood Affect: normal affect Exam Narrative Exam Narrative: General: pleasant elderly female, A&Ox3, no edema, no JVD HEENT: slightly disconjugate gaze, MMM Heart: RRR, +quiet JENNIFER Lungs: decreased rales at R base; no w/r/r on the left. Abdomen: soft, nontender, nondistended Extremities: not wearing TEDs , no edema through BLEs, wrinkles seen Psych Mental Status: mental status grossly normal Speech and Movement: speech and movement normal Mood: congruent mood Affect: normal affect DS: Data Vitals/I&O Vitals and I&O: Vital Signs Temperature 36.9 C 04/05/20 07:50 Temperature Source Tympanic 04/05/20 08:14 Pulse 66 04/05/20 07:50 Pulse Rhythm Regular 04/04/20 19:24 Respiratory Rate 18 04/05/20 07:50 Respiratory Effort Non-Labored 04/05/20 00:05 Respiratory Depth Normal 04/05/20 00:05 Respiratory Pattern Normal 04/05/20 00:05 Blood Pressure 139/76 04/05/20 07:50 Pulse Oximetry 96 04/05/20 07:50 Oxygen Delivery Method Room Air 04/05/20 07:50 Oxygen Flow Rate 0 04/05/20 07:50 Pain Level 6 04/05/20 07:50 Comment 04/05/20 08:14 Intake & Output 04/04/20 04/04/20 04/05/20 11:59 23:59 11:59 Intake Total 469.667 / 1096.000 626.333 / 1096.000 180 / 180 Output Total 1150 / 2450 1300 / 2450 600 / 600 Balance -680.333 / -1354.000 -673.667 / -1354.000 -420 / -420 Weight 55.9 kg 55.2 kg Intake: IV 79.667 / 166.000 86.333 / 166.000 Oral 390 / 930 540 / 930 180 / 180 Output: Urine 1150 / 2450 1300 / 2450 600 / 600 Other: Urine Color Pale Yellow Pale Yellow Yellow Urine Appearance Clear Clear Clear Data Completed and Pending Labs on day of discharge: Labs from last 24 hours 04/05/20 06:28 Sodium 139 Potassium 3.3 L Chloride 99 Carbon Dioxide 27.9 Anion Gap 12.1 H BUN 86 H* Creatinine 1.96 H Estimated GFR/1.73 m2 24.30 Glucose 90 Calcium 10.8 H Magnesium 2.6 H PFSH Medical History Asthma Asthma Atrial fibrillation Bullous pemphigoid CHF (congestive heart failure) Chronic kidney disease CKD (chronic kidney disease) COPD (chronic obstructive pulmonary disease) Depression HTN (hypertension) Hypercalcemia Hypertension MRSA cellulitis PAF (paroxysmal atrial fibrillation) Presence of permanent cardiac pacemaker Pulmonary hypertension Surgical History AICD (automatic cardioverter/defibrillator) present H/O thoracic aortic aneurysm repair History of thoracic aortic aneurysm repair Pacemaker Social History Smoking/Tobacco Use Status: Never Smoking risk assessment performed?: Yes Alcohol Intake: never Substance use type: does not use Do you feel safe at home: Yes Do you feel safe in your relationship?: Yes
--- NOTE | 2020-04-05 09:56 | PDOC.CMDIS ---
LACE Index Scoring Tool - Questions: Length of Stay (in days): 7 - 13 Acuity (Admit via E.D.?): No Comorbidities: Congestive Heart Failure, Chronic Pulmonary Disease, Liver or Renal Disease E.D. Visits: 2 - Answers: Total Score: 12 Risk of Readmission: High Risk Care Management Discharge Reason for Hospitalization: Acute exacerbation of CHF. Discharge Plan: Antonia will be discharged home with a resumption [facility] nursing services. 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 Her daughter, Orly, will drive her home via private vehicle when ready. Patient/Family Education Needs: Review discharge instructions, discuss Ask Me Three. Services Needed at Discharge: Home Health Care Services ([facility] RN resumption. )
[2020-04-05 11:53] VITALS: BP 144/76; PULSE 65; RESP 19; TEMP 36.4; O2SAT 97
--- NOTE | 2020-04-07 08:51 | INDS_ITS ---
Date of service: 04/07/20 Time of Service: 08:51 PT Notes Visit Reasons: ACUTE EXACERBATION OF CHF Inpatient Physical Therapy Discharge Summary Date: 04/07/2020 Dates of Service: 03/30/2020 through 04/04/2020 This is a clinical summary of care provided on the duration of dates listed above. No charge was made in the completion of this documentation. Referring Doctor: Constanza Schultz MD PT Orders: PT CONSULT: Limited ability Precautions: Standard. Activity as tolerated. Patient Profile/Admitting Diagnosis: Patient is an 85-year-old female admitted to [facility] on March 28, 2020 secondary to complaints of shortness of breath. Admitted secondary to acute exacerbation of CHF. She had been admitted to this facility on 14 March by process specialist for management of acute on chronic diastolic CHF. She was advised to return to the hospital after consult with her physician due to her continued complaints of shortness of breath. Patient indicates she is also been recently diagnosed with bronchitis. PMHX: Medical History Asthma Asthma Atrial fibrillation Bullous pemphigoid CHF (congestive heart failure) Chronic kidney disease CKD (chronic kidney disease) COPD (chronic obstructive pulmonary disease) Depression HTN (hypertension) Hypercalcemia Hypertension MRSA cellulitis PAF (paroxysmal atrial fibrillation) Presence of permanent cardiac pacemaker Pulmonary hypertension Surgical History AICD (automatic cardioverter/defibrillator) present H/O thoracic aortic aneurysm repair History of thoracic aortic aneurysm repair Pacemaker Social History/Home Situation: Lives with daughter in a private two-story home, but reside on on floor. 2 steps to enter with one rail. Independent with all self care and ADL's. No longer drives. Current Functional Limitations: None Equipment Owned/DME: Walker, cane. Patient states she has not needed to use either device in the last few months. Subjective: NT. See most recent SECURITIES AND REAL ESTATE DIRECTOR notes. Objective: General Observation: NT. See most recent SECURITIES AND REAL ESTATE DIRECTOR notes. Mental Status: NT. See most recent SECURITIES AND REAL ESTATE DIRECTOR notes. Pain: NT. See most recent SECURITIES AND REAL ESTATE DIRECTOR notes. Vital Signs: NT. See most recent SECURITIES AND REAL ESTATE DIRECTOR notes. ROM: Right Upper Extremity: WNL with the exception of helpdesk manager. Due to advanced arthritic changes she is unable to approximate fingertips to palmar crease Left Upper Extremity: WNL Right Lower Extremity: WNL Left Lower Extremity: WNL Strength: Right Upper Extremity: Glenohumeral joint flexion 4+/5, abduction 4/5, bicep 4+/5, tricep 4/5. Market Developer 4/5. Left Upper Extremity: Glenohumeral joint flexion 4/5, abduction 4/5, bicep tricep 4+/5, helpdesk manager 4+/5 Right Lower Extremity: Grossly 4+ /5 Left Lower Extremity: Grossly 4+ /5 Sensation: WNL to light touch bilateral upper and lower extremities. Bed Mobility/Transfers: Bed mobility: Independent Sit?stand: Independent Stand?sit: Independent Bed?chair: Independent Chair?bed: Independent Gait: Patient ambulates 150 feet with supervision and no assistive device. Did note some mild imbalance with turning to her right. Balance: Static Sitting: Normal Dynamic Sitting: Normal Static Standing: Good Dynamic Standing: Good Assessment: Antonia demonstrates functional mobility improvements during this episode of care as evidenced by functional mobility level above and discharge staus below. Patient is a 85 year old female referred to physical therapy services with the diagnosis of acute on chronic CHF, pulmonary hypertension, acute bronchitis acute on chronic kidney disorder. Patient presents with clinical signs and symptoms consistent with referred diagnosis. She currently demonstrates the following impairment levels: 1. Impaired activity tolerance 2. Decrease strength to lower extremity hip and knee major muscle group 3. Impaired standing balance Impairments are contributing to the following functional limitations: 1. Increased completion time for mobility ADL performance Goals X1 week 1. Supine-Sit I MET 2. Sit-Supine I MET 3. Sit-Stand I MET 4. Stand-Sit I MET 5. Bed-Chair I MET 6. Chair-Bed I MET 7. Gait I NOT MET 8. Stairs I MET 9. Independent with home exercise program I NOT MET 10. Dynamic standing balance Good NOT MET DISCHARGE RECOMMENDATIONS: Home with daughter. Patient will benefit from home health PT services in order to progress mobility level using least restrictive assistive ambulatory device, assess home safety, identify additional equipment needs, and establish a functional maintenance program that will increase ability of patient to remain at home. TREATMENT CODE/TIME: ID. Thank you for the opportunity to participate in the care of this patient. Suma Torres PT, DPT, CLT [facility] [place], [place]
== END 2020-04-05 14:20 | disposition home health service (06) | DRG 291 ==
PROVIDERS: Internal Medicine; Admitting Provider Family Medicine; PCP Nurse Practitioner Family; Visit Provider Family Medicine
DX: I50.33 Acute on chronic diastolic (congestive) heart failure (principal); I13.0 Hypertensive heart and chronic kidney disease with heart failure and stage 1 through stage 4 chronic kidney disease, or unspecified chronic kidney disease; E27.40 Unspecified adrenocortical insufficiency; L12.0 Bullous pemphigoid; N17.9 Acute kidney failure, unspecified; J44.0 Chronic obstructive pulmonary disease with (acute) lower respiratory infection; I48.0 Paroxysmal atrial fibrillation; J44.9 Chronic obstructive pulmonary disease, unspecified; I27.20 Pulmonary hypertension, unspecified; F32.9 Major depressive disorder, single episode, unspecified; E83.52 Hypercalcemia; J20.9 Acute bronchitis, unspecified; J84.10 Pulmonary fibrosis, unspecified; Z66 Do not resuscitate; Z95.0 Presence of cardiac pacemaker
CPT/HCPCS: 36415; 80048; 80053; 87040; 93306; 94640; 97110; 97161; 97530; 99222; 99232; 99239; U0003; 71045; 71046; 81003; 81015; 83735; 83880; 85025; J1940; J7512

== ENCOUNTER 2020-04-08 12:36 | Outpatient (REF) | payer MEDICARE, SELFPAY ==
[2020-04-08 13:41] LABS: Anion Gap 8.6 mmol/L (3-11); CO2 28.4 mmol/L (21.0-32.0); CREATININE 2.46 mg/dL (0.55-1.02); Calcium 10.5 mg/dL (8.5-10.1); Chloride 101 mmol/L (98-107); Estimated GFR 18.69 (mL/min/1.73m2); Glucose 105 mg/dL (74-106); Sodium 138 mmol/L (136-145)
[2020-04-08 13:54] LABS: BUN 93 mg/dL (7-18)
== END 2020-04-08 12:56 ==
LOC: NCHCN 12:36
PROVIDERS: PCP Nurse Practitioner Family; Visit Provider Nurse Practitioner Family
DX: I13.0 Hypertensive heart and chronic kidney disease with heart failure and stage 1 through stage 4 chronic kidney disease, or unspecified chronic kidney disease (principal); I50.33 Acute on chronic diastolic (congestive) heart failure; N18.30 Chronic kidney disease, stage 3 unspecified; I48.91 Unspecified atrial fibrillation; J44.0 Chronic obstructive pulmonary disease with (acute) lower respiratory infection
CPT/HCPCS: 80048; 83735

== ENCOUNTER → 2020-04-15 09:39 | Outpatient (BNVA) | payer MEDICARE, SELFPAY | PROVIDERS: PCP Nurse Practitioner Family; Referring Provider Nurse Practitioner Family; Visit Provider Internal Medicine Cardiovascular Disease | DX: I48.0 Paroxysmal atrial fibrillation (principal); N18.4 Chronic kidney disease, stage 4 (severe); I13.0 Hypertensive heart and chronic kidney disease with heart failure and stage 1 through stage 4 chronic kidney disease, or unspecified chronic kidney disease; I50.9 Heart failure, unspecified; J44.9 Chronic obstructive pulmonary disease, unspecified | CPT/HCPCS: 99214 ==

== ENCOUNTER → 2020-04-22 10:09 | Outpatient (BNVA) | payer MEDICARE, SELFPAY | PROVIDERS: PCP Nurse Practitioner Family; Referring Provider Nurse Practitioner Family; Visit Provider Internal Medicine Cardiovascular Disease | DX: I50.33 Acute on chronic diastolic (congestive) heart failure (principal); N18.4 Chronic kidney disease, stage 4 (severe); I48.0 Paroxysmal atrial fibrillation; Z95.0 Presence of cardiac pacemaker; I10 Essential (primary) hypertension; I13.0 Hypertensive heart and chronic kidney disease with heart failure and stage 1 through stage 4 chronic kidney disease, or unspecified chronic kidney disease; Z79.01 Long term (current) use of anticoagulants; N18.9 Chronic kidney disease, unspecified; J44.9 Chronic obstructive pulmonary disease, unspecified | CPT/HCPCS: 99214 ==

== ENCOUNTER → 2020-04-30 09:28 | Outpatient (BNVA) | payer MEDICARE, SELFPAY | PROVIDERS: PCP Nurse Practitioner Family; Referring Provider Specialist/Technologist Athletic Trainer; Visit Provider Internal Medicine Cardiovascular Disease | DX: I48.91 Unspecified atrial fibrillation (principal); Z45.018 Encounter for adjustment and management of other part of cardiac pacemaker; I13.0 Hypertensive heart and chronic kidney disease with heart failure and stage 1 through stage 4 chronic kidney disease, or unspecified chronic kidney disease; N18.9 Chronic kidney disease, unspecified; I50.9 Heart failure, unspecified | CPT/HCPCS: 93280; 99212 ==

== ENCOUNTER → 2020-05-02 09:58 | Outpatient (BNVA) | payer MEDICARE, SELFPAY | PROVIDERS: PCP Nurse Practitioner Family; Referring Provider Nurse Practitioner Family; Visit Provider Internal Medicine Cardiovascular Disease | DX: I35.0 Nonrheumatic aortic (valve) stenosis (principal); I50.33 Acute on chronic diastolic (congestive) heart failure; I13.0 Hypertensive heart and chronic kidney disease with heart failure and stage 1 through stage 4 chronic kidney disease, or unspecified chronic kidney disease; N18.9 Chronic kidney disease, unspecified; I48.0 Paroxysmal atrial fibrillation; J44.9 Chronic obstructive pulmonary disease, unspecified | CPT/HCPCS: 99214 ==

== ENCOUNTER 2020-05-02 11:09 | Outpatient (REF) | payer MEDICARE, SELFPAY ==
[2020-05-02 11:50] LABS: CREATININE 2.43 mg/dL (0.55-1.02); Calcium 10.5 mg/dL (8.5-10.1); Chloride 94 mmol/L (98-107); Estimated GFR 18.96 (mL/min/1.73m2); Glucose 95 mg/dL (74-106); Sodium 134 mmol/L (136-145)
[2020-05-02 12:00] LABS: BUN 102 mg/dL (7-18)
[2020-05-02 12:01] LABS: Potassium 2.5 mmol/L (3.5-5.1)
== END 2020-05-02 11:29 ==
LOC: LBN 11:09
PROVIDERS: PCP Nurse Practitioner Family; Visit Provider Internal Medicine Cardiovascular Disease
DX: I35.0 Nonrheumatic aortic (valve) stenosis (principal)
CPT/HCPCS: 80048

== ENCOUNTER 2020-05-09 13:00 | Outpatient (REF) | payer MEDICARE, SELFPAY ==
[2020-05-09 19:21] LABS: Anion Gap 10.1 mmol/L (3-11); CO2 26.9 mmol/L (21.0-32.0); CREATININE 2.88 mg/dL (0.55-1.02); Calcium 10.4 mg/dL (8.5-10.1); Chloride 100 mmol/L (98-107); Estimated GFR 15.58 (mL/min/1.73m2); Glucose 89 mg/dL (74-106); Potassium 4.4 mmol/L (3.5-5.1); Sodium 137 mmol/L (136-145); Uric Acid 13.9 mg/dL (2.6-6.0)
[2020-05-09 19:42] LABS: BUN 95 mg/dL (7-18)
== END 2020-05-09 13:20 ==
LOC: NCHCN 13:00
PROVIDERS: PCP Nurse Practitioner Family; Visit Provider Nurse Practitioner Family
DX: E87.6 Hypokalemia (principal); M25.541 Pain in joints of right hand
CPT/HCPCS: 80048; 84550

== ENCOUNTER 2020-05-12 18:51 | Outpatient (REF) | payer MEDICARE, SELFPAY ==
[2020-05-12 20:26] LABS: Anion Gap 10.4 mmol/L (3-11); CO2 28.6 mmol/L (21.0-32.0); Calcium 10.7 mg/dL (8.5-10.1); Chloride 96 mmol/L (98-107); Estimated GFR 11.74 (mL/min/1.73m2); Glucose 97 mg/dL (74-106); Potassium 4.6 mmol/L (3.5-5.1); Sodium 135 mmol/L (136-145)
[2020-05-12 20:44] LABS: BUN 107 mg/dL (7-18); CREATININE 3.68 mg/dL (0.55-1.02)
== END 2020-05-12 19:11 ==
LOC: NCHCN 18:51
PROVIDERS: PCP Nurse Practitioner Family; Visit Provider Family Medicine
DX: I35.0 Nonrheumatic aortic (valve) stenosis (principal)
CPT/HCPCS: 80048

== ENCOUNTER 2020-05-15 20:47 | Outpatient (REF) | payer MEDICARE, SELFPAY ==
[2020-05-15 19:31] LABS: Anion Gap 10.3 mmol/L (3-11); CO2 27.7 mmol/L (21.0-32.0); CREATININE 2.91 mg/dL (0.55-1.02); Calcium 10.1 mg/dL (8.5-10.1); Chloride 99 mmol/L (98-107); Glucose 79 mg/dL (74-106); Potassium 4.5 mmol/L (3.5-5.1); Sodium 137 mmol/L (136-145)
[2020-05-15 19:58] LABS: BUN 98 mg/dL (7-18)
== END 2020-05-15 21:07 ==
LOC: NCHCN 20:47
PROVIDERS: PCP Nurse Practitioner Family; Visit Provider Nurse Practitioner Family
DX: I50.33 Acute on chronic diastolic (congestive) heart failure (principal)
CPT/HCPCS: 80048

== ENCOUNTER → 2020-05-16 12:38 | Outpatient (BNVA) | payer MEDICARE, SELFPAY | PROVIDERS: PCP Nurse Practitioner Family; Referring Provider Nurse Practitioner Family; Visit Provider Internal Medicine Cardiovascular Disease | DX: I48.0 Paroxysmal atrial fibrillation (principal); N17.9 Acute kidney failure, unspecified; N18.9 Chronic kidney disease, unspecified; I50.30 Unspecified diastolic (congestive) heart failure; I27.20 Pulmonary hypertension, unspecified; I13.0 Hypertensive heart and chronic kidney disease with heart failure and stage 1 through stage 4 chronic kidney disease, or unspecified chronic kidney disease | CPT/HCPCS: 99214; 99443 ==

== ENCOUNTER 2020-05-26 03:00 | Outpatient (CLI) | payer MEDICARE, SELFPAY | END 2020-05-26 03:20 | PROVIDERS: PCP Nurse Practitioner Family; Visit Provider Internal Medicine Cardiovascular Disease | DX: I50.33 Acute on chronic diastolic (congestive) heart failure (principal); N18.4 Chronic kidney disease, stage 4 (severe); I48.0 Paroxysmal atrial fibrillation; I13.0 Hypertensive heart and chronic kidney disease with heart failure and stage 1 through stage 4 chronic kidney disease, or unspecified chronic kidney disease | CPT/HCPCS: 99214 ==

== ENCOUNTER 2020-06-15 10:01 | Observation (INO) | payer MEDICARE, SELFPAY ==
[2020-06-15] VITALS (36 sets, daily range): BP systolic 101–139; BP diastolic 50–75; PULSE 59–84; RESP 14–21; TEMP 36–36.8; O2SAT 92–100
--- NOTE | 2020-06-15 10:00 | RT.EKG_ITS ---
APPROVED REPORT Exam: Resting ECG Patient Location: E HR:67 bpm ECG Measurements Heart Rate 67 AXIS CO 249 P [id number] QRSd 111 QRS 2 QT 433 T 182 QTc 457 Conclusion Atrial-paced complexes...other complexes also detected Prolonged CO interval...CO >220, V-rate 50- 90 Incomplete left bundle branch block...QRSd>110mS, terminal axis(-90,-1) Probable LVH with secondary repol abnrm...multiple LVH criteria
[2020-06-15 10:48] LABS: Abs Immature Grans 0.04 10^3/uL (0.0-0.06); Absolute Basophil Count 0.05 10^3/uL (0.0-0.2); Absolute Eosinophil Count 0.47 10^3/uL (0.0-0.7); Absolute Lymphocyte Count 0.92 10^3/uL (1.2-3.4); Absolute Monocyte Count 0.84 10^3/uL (0.1-0.8); Absolute Neutrophil Count 5.53 10^3/uL (1.2-6.7); Basophils % 0.6; HCT 31.5 % (36.0-46.0); HGB 9.8 g/dL (11.2-15.7); Immature Grans % 0.5; Lymphocytes % 11.7; MCH 27.3 pg (27.0-33.0); MCHC 31.1 % (32.0-36.0); MCV 87.7 fL (80-95); MPV 8.9 fL (8.0-11.0); Monocytes % 10.7; Neutrophils % 70.5; Nucleated RBC 0 %; Platelet Count 344 10^3/uL (130-400); RBC 3.59 10^6/uL (3.93-5.22); RDW 15.4 % (11.7-14.6); RDW-SD 48.9 fL; WBC 7.85 10^3/uL (4.4-10.8)
--- NOTE | 2020-06-15 10:49 | W.ED.GENAD ---
Discharge Plan Disposition Condition: Improving Discharge Details Chief Complaint: GenMedical Admit Date/Time: 06/15/20 13:05 Admit Provider: Rashi Romero Attending Provider: Rashi Romero Primary Care Provider: Cara Doll ED Provider: Luther Trinidad Discharge Instructions Activity:: Activity as Tolerated Equipment/Supplies:: No Equipment Needed Diet:: Low Sodium Discharge Orders Discharge Orders: Discharge Order (Routine); Ordered 06/17/20 Ordered By: Rashi Romero Discharge Data Discharge Date/Time-TO BE ENTERED AT DEPARTURE: 06/15/20 13:33 Medical Decision Making 1053??85-year-old female with multiple medical problems presents from home with generalized weakness, arthralgias, loss of sense of taste and smell. Patient is hemodynamically stable. Saturating in the low to mid 90s. Generally weak with no focal neurologic deficits. Patient has not been eating or drinking normally per [facility]. Consider electrolyte abnormality. Will check labs. Suspect Covid. Will check Covid testing. Patient does not currently have oxygen requirement but given comorbidities and generalized weakness with need for assistance with ADLs, she will likely need hospitalization. Screening ECG was performed reviewed and interpreted by me: Please see report. -- Labs reviewed. Chronic anemia noted. Patient admitted. Care transitioned to hospitalist service. Dispo: admit Diagnosis: weakness, hypokalemia Condition: serious HPI General Mode of arrival: ambulatory. Date/Time Provider Initiated Documentation: 06/15/20 10:20. Limitations to Documentation: no limitations. Information obtained by: patient. HPI Narrative: 85-year-old female with multiple medical problems here with generalized weakness, malaise, cough, decreased sense of taste and smell. Patient is unable to care for self at home. She typically has an aide in her home who helps her. She is usually able to ambulate around with minimal assistance. She has not been able to ambulate over the past couple days secondary to weakness. Symptoms are severe. No modifiers. She has diffuse body aches. No fever. Patient has been to medical appointments at [facility] [place]. Related Data Home Medications Medication Instructions Recorded Confirmed Eliquis 2.5 mg PO BID tab-cap 09/17/16 06/20/20 metoprolol tartrate 25 mg PO BID tab-cap 09/17/16 06/20/20 albuterol sulfate 90 mcg/actuation 2 puff IH Q4H PRN gm 10/30/18 06/20/20 aerosol inhaler sennosides 8.6 mg tablet 8.6 mg PO HS PRN tab 10/30/18 06/20/20 polyethylene glycol 3350 17 gram 17 g PO DAILY PRN each 11/27/18 06/20/20 oral powder packet docusate sodium 100 mg capsule 100 mg PO TID PRN cap 06/13/19 06/20/20 pantoprazole 40 mg PO DAILY 07/17/19 06/20/20 theophylline 200 mg PO DAILY 07/17/19 06/20/20 losartan 25 mg tablet 25 mg PO DAILY #30 tab 12/28/19 06/20/20 isosorbide mononitrate 30 mg 30 mg PO DAILY #90 tab 03/10/20 06/20/20 tablet,extended release 24 hr Breo Ellipta 1 inh INHALATION DAILY 03/30/20 06/20/20 potassium chloride [Klor-Con M20] 40 meq PO DAILY #20 tab 04/05/20 06/20/20 prednisone 5 mg PO DAILY #37 tab 04/05/20 06/20/20 acetaminophen 500 mg PO QID PRN 06/15/20 06/20/20 torsemide 60 mg PO BID 06/15/20 06/20/20 clonidine HCl 0.1 mg PO HS 06/16/20 06/20/20 lidocaine 5 % topical cream 1 applic TOPICAL BID PRN 06/18/20 06/20/20 prednisone 10 mg tablets in a dose See Rx Instructions PO PER PKG DIR 06/18/20 06/20/20 pack amoxicillin 250 mg-potassium 1 tab PO BID tab 06/20/20 06/20/20 clavulanate 125 mg tablet metolazone 5 mg tablet 5 mg PO .Once weekly #60 tab 06/20/20 06/20/20 Previous Rx's Medication Instructions Recorded losartan 25 mg tablet 25 mg PO DAILY #30 tab 12/28/19 isosorbide mononitrate 30 mg 30 mg PO DAILY #90 tab 03/10/20 tablet,extended release 24 hr potassium chloride [Klor-Con M20] 40 meq PO DAILY #20 tab 04/05/20 prednisone 5 mg PO DAILY #37 tab 04/05/20 metolazone 5 mg tablet 5 mg PO .Once weekly #60 tab 06/20/20 Allergies Allergy/AdvReac Type Severity Reaction Status Date / Time adhesive Allergy Verified 06/15/20 10:23 egg Allergy Verified 06/15/20 10:23 gluten Allergy Verified 06/15/20 10:23 Influenza Virus Vaccines Allergy Verified 06/15/20 10:23 pork derived (porcine) Allergy Verified 06/15/20 10:23 warfarin [From Coumadin] Allergy Verified 06/15/20 10:23 dapsone AdvReac dizziness, Verified 06/15/20 10:23 headache, nausea dairy Allergy Uncoded 06/15/20 10:23 tape Allergy Uncoded 06/15/20 10:23 General Stated Complaint: GenMedical WESLEY: 3 Review of Systems All systems reviewed & are unremarkable except as noted in HPI and below Constitutional Constitutional: Reports body ache(s) and Denies fever(s) Respiratory Respiratory: Reports cough Gastrointestinal Gastrointestinal: Reports nausea PFSH Medical History Asthma Asthma Atrial fibrillation Bullous pemphigoid CHF (congestive heart failure) Chronic kidney disease CKD (chronic kidney disease) COPD (chronic obstructive pulmonary disease) Depression HTN (hypertension) Hypercalcemia Hypertension MRSA cellulitis PAF (paroxysmal atrial fibrillation) Presence of permanent cardiac pacemaker Pulmonary hypertension Surgical History AICD (automatic cardioverter/defibrillator) present H/O thoracic aortic aneurysm repair History of thoracic aortic aneurysm repair Pacemaker Social History Smoking/Tobacco Use Status: Never Smoking risk assessment performed?: Yes Alcohol Intake: never Substance use type: does not use Household members: other Details: lives with daughter Orly Keller Do you feel safe at home: Yes Do you feel safe in your relationship?: Yes Exam Const General: cooperative and no acute distress HENMT Head: normocephalic and atraumatic Mouth: moist mucous membranes Eyes Conjunctivae: normal conjunctivae Sclera: normal sclerae Neck Neck: trachea midline and supple Resp Auscultation: rales and no wheezes Cardio Rate: regular rate and not tachycardic Rhythm: regular rhythm Heart Sounds: murmur GI Palpation: soft, not firm, no guarding, no masses, not rigid and nontender Skin General skin exam: no rashes or lesions noted Neuro General: patient alert, patient awake and tone normal Extrem General: no edema Psych Appearance: grossly normal Mental Status: mental status grossly normal Course Vital Signs Vital signs: Vital Signs Temperature 36.3 C L 06/15/20 10:11 Pulse 69 06/15/20 10:11 Respiratory Rate 17 06/15/20 10:11 Blood Pressure 133/59 L 06/15/20 10:11 Pulse Oximetry 94 06/15/20 10:11 Temperature 36.3 C L 06/15/20 10:11 Temperature Source Skin 06/15/20 10:11 Pulse 69 06/15/20 10:11 Respiratory Rate 18 06/15/20 10:17 Respiratory Effort Non-Labored 06/15/20 10:17 Respiratory Depth Normal 06/15/20 10:17 Respiratory Pattern Normal 06/15/20 10:17 Blood Pressure 133/59 L 06/15/20 10:11 Blood Pressure Position Supine 06/15/20 10:11 Pulse Oximetry 94 06/15/20 10:11 Oxygen Delivery Method Room Air 06/15/20 10:11 Oxygen Flow Rate 0 06/15/20 10:11 Pain Level 10 06/15/20 10:11
[2020-06-15 10:59] LABS: INR 1.1 (0.9-1.1); Prothrombin Time 11.3 sec (9.3-11.0)
[2020-06-15 11:03] LABS: ALT 13 U/L (14-59); AST 21 U/L (15-37); Albumin 3.3 g/dL (3.4-5.0); Alkaline Phosphatase 67 U/L (46-116); Anion Gap 9.1 mmol/L (3-11); Bilirubin, Total 0.3 mg/dL (0.2-1.0); CO2 34.9 mmol/L (21.0-32.0); CREATININE 2.06 mg/dL (0.55-1.02); Calcium 10.4 mg/dL (8.5-10.1); Chloride 91 mmol/L (98-107); Estimated GFR 22.94 (mL/min/1.73m2); Glucose 112 mg/dL (74-106); Magnesium 1.9 mg/dL (1.8-2.4); Sodium 135 mmol/L (136-145); Total Protein 7.9 g/dL (6.4-8.2); Troponin I 0.06 ng/mL (<0.06)
[2020-06-15 11:08] LABS: BUN 104 mg/dL (7-18); Potassium 2.1 mmol/L (3.5-5.1)
--- NOTE | 2020-06-15 11:25 | DI.RAD_ITS ---
EXAM: XR PORTABLE CHEST AP CLINICAL HISTORY: cough, PUI TECHNIQUE: 2D digital imaging was performed. COMPARISON: CR XR PORTABLE CHEST AP from 04/01/2020 FINDINGS: MEDIASTINUM: Normal. HEART: Normal. PULMONARY VASCULATURE: Normal. LUNGS: Stable fibrotic changes are seen in the lungs particularly on the right. No evidence of a sup erimposed infiltrate is seen. PLEURAL SPACE: No pleural effusion or pneumothorax. BONE:Within normal limits for the patient's age. Sternotomy wires are again seen. OTHER FINDINGS:Cardiac pacemaker is in place. IMPRESSION: No acute pulmonary findings. DATA REPOSITORY: RADIATION DOSE DELIVERED:
[2020-06-15] MEDS: Normal Saline 1,000 ML 150 ML IV (11:26)
[2020-06-15] MEDS: POTASSIUM CHLORIDE 20 MEQ/100 ML BAG 50 MEQ IVPB (11:26)
[2020-06-15] MEDS: Potassium Chloride 20 MEQ TABCR 40 MEQ PO (11:28)
--- NOTE | 2020-06-15 11:33 | DI.VRAD_ITS ---
PROCEDURE INFORMATION: Exam: XR Chest, 1 View Exam date and time: 06/15/2020 10:37 AM Age: 85 years old Clinical indication: Patient HX: Cough. Suspected for covid TECHNIQUE: Imaging protocol: XR of the chest Views: 1 view. COMPARISON: CR XR PORTABLE CHEST AP 04/01/2020 9:42 AM FINDINGS: Lungs: Stable chronic pulmonary fibrotic changes are present in the lungs. No evidence of superimposed airspace disease. Pleural space: Unremarkable. No pleural effusion. No pneumothorax. Heart/Mediastinum: Unremarkable. No cardiomegaly. Bones/joints: Sternotomy wires. Soft tissues: Pacemaker present on the left chest wall. Both leads appear intact. IMPRESSION: No acute changes. Dictated and Authenticated by: Ruperto Cedillo MD. Ordering:JONATHON Sloan MD
[2020-06-15 12:02] LABS: Source Nasopharynx
[2020-06-15 12:45] LABS: COVID-19 PCR Negative (Negative); Influenza A PCR Negative (Negative); Influenza B PCR Negative (Negative); RSV PCR Negative (Negative)
[2020-06-15] MEDS: Acetaminophen 325 MG TAB 650 MG PO ×3 (12:52→23:43)
[2020-06-15 13:29] LABS: Bilirubin Negative (Negative); Blood Moderate (Negative); Clarity Clear (Clear); Glucose Negative (Negative); Ketones Negative (Negative); Leukocyte Esterase Trace (Negative); Nitrite Negative (Negative); Urobilinogen 0.2 EU/dL (Up TO 0.2)
[2020-06-15 13:37] LABS: Bacteria Few HPF (Negative); C & S Indicated? Yes; Casts Negative LPF (Negative); Crystals Negative HPF (Negative); Epithelial Cells Few HPF (Negative); Mucus Negative (Negative); RBC 0-2 HPF (0-2)
--- NOTE | 2020-06-15 14:58 | HPE_ITS ---
Date of service: 06/15/20 Time of Service: 15:08 Assessment and Plan Assessment and plan (1) COPD (chronic obstructive pulmonary disease): Status: Chronic Assessment and plan: No acute exacerbation. Cont prn albuterol and scheduled Symbicort. (2) Pulmonary fibrosis, unspecified: Status: Chronic Assessment and plan: Chronic changes on Xray. Chronic bibasilar crackles. (3) Chronic kidney disease: Status: Acute Assessment and plan: Creatinine 2.06; this appears to be in the lower end of her chronic range. Avoid hypotension, nephrotoxic agents. Qualifiers: Chronic kidney disease stage: stage 4 (severe) Qualified Code(s): N18.4 - Chronic kidney disease, stage 4 (severe) (4) Acute on chronic diastolic CHF (congestive heart failure), NYHA class 1: Status: Chronic Assessment and plan: Cont Zaroxolyn and Toresemide. (5) Adrenal insufficiency: Status: Chronic Assessment and plan: On chronic prednisone 5 mg daily. Initiate stress dosing of oral prednisone. 40 mg po now, then 20mg po daily. (6) PAF (paroxysmal atrial fibrillation): Status: Chronic Assessment and plan: Cont metoprolol and Eliquis. EKG shows atrial paced complexes along with other complexes. (7) Hypokalemia: Status: Acute Assessment and plan: Oral and IV replacement initiated in the ED; repeating both oral and IV replacement. Monitor. (8) Generalized body aches: Status: Acute Assessment and plan: Her presenting symptoms consistent with a viral ill ness. COVID and Influenza were negative. She is receiving increased dose of oral prednisone that may help with her symptoms. Cont her chronic prn hydrocodone. No fevers noted. History of Present Illness History of Present Illness Chief Complaint: Bodyaches, weakness Narrative: This is an 85 yo female with an extensive PMH of COPD, pulmonary fibrosis, CKD, acute on chronic diastolic CHF, peripheral neuropathy, adrenal insufficiency, PAF, pacemaker. She presented with genralized malaise, weakness, bodyaches. She endorsed a decrease in tase and smell sensation. Her symptoms started on Tuesday. She endorsed an inability to self ambulate since onset of symptoms. She has an aide in the home to assist with her care. No F/C. Mild cough w/o sputum. No diarrhea, N/V. She denies any falls. Her COVID-19 test was negative. K low at 2.5. Na 135. Creatinine elevated at 2.06. BUN high at 104. WBC normal. Hgb 9.8. CXR read by radiologist; no acute findings; chronic changes noted. UA tr leukocyte esterase, few bacteria, 3-5 WBC, few epis. She was given IV and oral K+ in the ED. Review of Systems All systems reviewed & are unremarkable except as noted in HPI and below PFSH Medical History Asthma Asthma Atrial fibrillation Bullous pemphigoid CHF (congestive heart failure) Chronic kidney disease CKD (chronic kidney disease) COPD (chronic obstructive pulmonary disease) Depression HTN (hypertension) Hypercalcemia Hypertension MRSA cellulitis PAF (paroxysmal atrial fibrillation) Presence of permanent cardiac pacemaker Pulmonary hypertension Surgical History AICD (automatic cardioverter/defibrillator) present H/O thoracic aortic aneurysm repair History of thoracic aortic aneurysm repair Pacemaker Social History Smoking/Tobacco Use Status: Never Smoking risk assessment performed?: Yes Alcohol Intake: never Substance use type: does not use Do you feel safe at home: Yes Do you feel safe in your relationship?: Yes Meds Home Medications and Allergies Home Medications Medication Instructions Recorded Confirmed Type Eliquis 2.5 mg PO BID tab-cap 09/17/16 06/15/20 History metoprolol tartrate 25 mg PO BID tab-cap 09/17/16 06/15/20 History albuterol sulfate 90 mcg/actuation 2 puff IH Q4H PRN gm 10/30/18 06/15/20 History aerosol inhaler sennosides 8.6 mg tablet 8.6 mg PO HS PRN tab 10/30/18 06/15/20 History polyethylene glycol 3350 17 gram 17 g PO DAILY PRN each 11/27/18 06/15/20 History oral powder packet docusate sodium 100 mg capsule 100 mg PO TID PRN cap 06/13/19 06/15/20 History pantoprazole 40 mg PO DAILY 07/17/19 06/15/20 History theophylline 200 mg PO DAILY 07/17/19 06/15/20 History clonidine HCl 0.1 mg tablet 0.1 mg PO QHS 12/03/19 06/15/20 History losartan 25 mg tablet 25 mg PO DAILY #30 tab 12/28/19 06/15/20 Rx isosorbide mononitrate 30 mg 30 mg PO DAILY #90 tab 03/10/20 06/15/20 Rx tablet,extended release 24 hr fluticasone furoate-vilanterol 1 inh INHALATION DAILY 03/30/20 06/15/20 History [Breo Ellipta] potassium chloride [Klor-Con M20] 40 meq PO DAILY #20 tab 04/05/20 06/15/20 Rx prednisone 5 mg PO DAILY #37 tab 04/05/20 06/15/20 Rx metolazone 5 mg tablet 5 mg PO .twice weekly #60 tab 05/16/20 06/15/20 Rx acetaminophen 500 mg PO QID PRN 06/15/20 06/15/20 History hydrocodone-acetaminophen 1 tab PO PRN PRN 06/15/20 06/15/20 History torsemide 60 mg PO BID 06/15/20 06/15/20 History Allergies Allergy/AdvReac Type Severity Reaction Status Date / Time adhesive Allergy Verified 06/15/20 10:23 egg Allergy Verified 06/15/20 10:23 gluten Allergy Verified 06/15/20 10:23 Influenza Virus Vaccines Allergy Verified 06/15/20 10:23 pork derived (porcine) Allergy Verified 06/15/20 10:23 warfarin [From Coumadin] Allergy Verified 06/15/20 10:23 dapsone AdvReac dizziness, Verified 06/15/20 10:23 headache, nausea dairy Allergy Uncoded 06/15/20 10:23 tape Allergy Uncoded 06/15/20 10:23 Exam Const General: cooperative and no acute distress Nutritional Appearance: average body habitus Orientation: alert and oriented x3 HENMT Head: normocephalic and atraumatic Neck Neck: full ROM and no JVD Resp Effort & Inspection: normal respiratory effort Auscultation: diminished lung sounds and rales bilaterally at the base Cardio Rate: regular rate Rhythm: regular rhythm Heart Sounds: S1 normal, S2 normal and murmur GI Palpation: soft and nontender Auscultation: normal bowel sounds Skin General skin exam: ecchymosis (small ecchymotic areas on chest and arms) Extrem General: no pedal edema and no calf tenderness Psych Appearance: grossly normal Mental Status: mental status grossly normal Speech and Movement: speech and movement normal Affect: blunted Results Labs Result diagrams: 06/15/20 10:40 06/15/20 14:40 Labs: Laboratory Results - last 24 hr 06/15/20 06/15/20 06/15/20 10:40 10:40 10:40 WBC 7.85 RBC 3.59 L Hgb 9.8 L Hct 31.5 L MCV 87.7 MCH 27.3 MCHC 31.1 L RDW 15.4 H Plt Count 344 MPV 8.9 Immature Gran % 0.5 Neutrophils % 70.5 Lymphocytes % 11.7 Monocytes % 10.7 Eosinophils % 6.0 Basophils % 0.6 Nucleated RBC % 0 Absolute Neutrophils 5.53 Absolute Lymphocytes 0.92 L Absolute Monocytes 0.84 H Absolute Eosinophils 0.47 Absolute Basophils 0.05 PT 11.3 H INR 1.1 Sodium 135 L Potassium 2.1 L* Chloride 91 L Carbon Dioxide 34.9 H Anion Gap 9.1 BUN 104 H* Creatinine 2.06 H Estimated GFR/1.73 m2 22.94 Glucose 112 H Calcium 10.4 H Magnesium 1.9 Total Bilirubin 0.3 AST 21 ALT 13 L Alkaline Phosphatase 67 Troponin I 0.06 Total Protein 7.9 Albumin 3.3 L Urine Color Urine Clarity Urine pH Ur Specific [place] Urine Protein Urine Ketones Urine Blood Urine Nitrite Urine Bilirubin Urine Urobilinogen Ur Leukocyte Esterase Urine RBC Urine WBC Ur Epithelial Cells Urine Crystals Urine Bacteria Urine Casts Urine Mucus Ur Culture Indicated? Urine Glucose COVID-19 Source SARS-CoV-2 (PCR) Nasopharyn COVID-19 PCR Influenza Type A (PCR) Influenza Type B (PCR) RSV (PCR) Ref Test Perform Site 06/15/20 06/15/20 06/15/20 10:40 11:55 13:20 WBC RBC Hgb Hct MCV MCH MCHC RDW Plt Count MPV Immature Gran % Neutrophils % Lymphocytes % Monocytes % Eosinophils % Basophils % Nucleated RBC % Absolute Neutrophils Absolute Lymphocytes Absolute Monocytes Absolute Eosinophils Absolute Basophils PT INR Sodium Potassium Chloride Carbon Dioxide Anion Gap BUN Creatinine Estimated GFR/1.73 m2 Glucose Calcium Magnesium Total Bilirubin AST ALT Alkaline Phosphatase Troponin I Total Protein Albumin Urine Color Straw Urine Clarity Clear Urine pH 7.0 Ur Specific [place] 1.020 Urine Protein Negative Urine Ketones Negative Urine Blood Moderate H Urine Nitrite Negative Urine Bilirubin Negative Urine Urobilinogen 0.2 Ur Leukocyte Esterase Trace H Urine RBC 0-2 Urine WBC 3-5 Ur Epithelial Cells Few Urine Crystals Negative Urine Bacteria Few Urine Casts Negative Urine Mucus Negative Ur Culture Indicated? Yes Urine Glucose Negative COVID-19 Source Nasopharynx SARS-CoV-2 (PCR) Cancelled Negative Nasopharyn COVID-19 PCR Cancelled Influenza Type A (PCR) Negative Influenza Type B (PCR) Negative RSV (PCR) Negative Ref Test Perform Site Cancelled Last Vital Signs Temp 36.6 C 06/15/20 14:09 Pulse 72 06/15/20 14:54 Resp 17 06/15/20 14:09 BP 139/72 06/15/20 14:09 Pulse Ox 100 06/15/20 14:09 COVID-19 Screening Have you, or household traveled for leisure in last 14 days?: No Had IN PERSON contact w/suspected or confirmed C-19 person: No
[2020-06-15 15:00] LABS: Potassium 2.5 mmol/L (3.5-5.1)
[2020-06-15 15:05] LABS: Troponin I 0.05 ng/mL (<0.06)
[2020-06-15] MEDS: POTASSIUM CHLORIDE 10 MEQ/100 ML BAG 100 MEQ IVPB ×2 (16:00→17:37)
[2020-06-15] MEDS: predniSONE 20 MG TAB 40 MG PO (16:00)
[2020-06-15] MEDS: HYDROcodone 5/Acetaminophen 325 TAB PO (16:00)
[2020-06-15] MEDS: Normal Saline Flush 10 ML SYR IVP ×2 (16:01→19:39)
[2020-06-15] MEDS: Torsemide 20 MG TAB 60 MG PO (19:39)
[2020-06-15] MEDS: Apixaban 2.5 MG TAB PO (19:39)
[2020-06-15] MEDS: Metoprolol 25 MG TAB PO (19:39)
[2020-06-15] MEDS: Budesonide/Formoterol 160/4.5 6 GM 60 PUFF INH IH (19:39)
[2020-06-15] MEDS: cloNIDine 0.1 MG TAB PO (22:11)
[2020-06-16] VITALS (10 sets, daily range): BP systolic 115–130; BP diastolic 54–73; PULSE 60–100; RESP 16–19; TEMP 36–37.1; O2SAT 94–97
[2020-06-16] MEDS: HYDROcodone 5/Acetaminophen 325 TAB PO (00:38)
[2020-06-16] MEDS: Acetaminophen 325 MG TAB 650 MG PO ×2 (05:10→20:18)
[2020-06-16 07:10] LABS: Anion Gap 10.9 mmol/L (3-11); CO2 30.1 mmol/L (21.0-32.0); CREATININE 2.35 mg/dL (0.55-1.02); Calcium 10.1 mg/dL (8.5-10.1); Chloride 89 mmol/L (98-107); Estimated GFR 19.71 (mL/min/1.73m2); Glucose 179 mg/dL (74-106); Sodium 130 mmol/L (136-145)
[2020-06-16 07:12] LABS: BUN 91 mg/dL (7-18); Potassium 2.6 mmol/L (3.5-5.1)
[2020-06-16] MEDS: POTASSIUM CHLORIDE 10 MEQ/100 ML BAG 100 MEQ IVPB ×3 (08:04→11:11)
[2020-06-16] MEDS: Metoprolol 25 MG TAB PO ×2 (08:05→20:17)
[2020-06-16] MEDS: Torsemide 20 MG TAB 60 MG PO ×2 (08:05→20:17)
[2020-06-16] MEDS: Apixaban 2.5 MG TAB PO ×2 (08:05→20:17)
[2020-06-16] MEDS: Losartan 25 MG TAB PO (08:05)
[2020-06-16] MEDS: Potassium Chloride 20 MEQ TABCR 40 MEQ PO (08:05)
[2020-06-16] MEDS: Pantoprazole 40 MG TABCR PO (08:05)
[2020-06-16] MEDS: predniSONE 20 MG TAB PO (08:06)
[2020-06-16] MEDS: Isosorbide Mononitrate 30 MG TABCR PO (08:06)
[2020-06-16] MEDS: Budesonide/Formoterol 160/4.5 6 GM 60 PUFF INH IH ×2 (08:17→20:21)
[2020-06-16] MEDS: Normal Saline Flush 10 ML SYR IVP ×2 (08:21→20:18)
[2020-06-16] MEDS: Normal Saline 500 ML 30 ML IV (11:10)
--- NOTE | 2020-06-16 14:11 | W.PM.PROGNOT ---
Date of Service Date of service: 06/16/20 Time of Service: 14:11 Assessment and Plan Assessment and plan (1) COPD (chronic obstructive pulmonary disease): Status: Chronic Assessment and plan: No acute exacerbation. Cont symbicort and prn albuterol. (2) Chronic kidney disease: Status: Acute Assessment and plan: Creatinine 2.35; up from 2.06 on admission but within her typical range. Monitor and avoid hypotension and nephrotoxins. Qualifiers: Chronic kidney disease stage: stage 4 (severe) Qualified Code(s): N18.4 - Chronic kidney disease, stage 4 (severe) (3) Adrenal insufficiency: Status: Chronic Assessment and plan: Chronically on prednisone 5mg daily. Increased to 30mg daily. (4) CHF (congestive heart failure): Status: Chronic Assessment and plan: Stable w/o exacerbation. Cont diuretics. (5) Generalized body aches: Status: Acute Assessment and plan: Improving. Likely a viral syndrome. (6) Hypokalemia: Status: Acute Assessment and plan: Improving with IV and oral supplementation. Monitor. Subjective Subjective Patient reports: feels better, still having pain (Generalized bodyaches and COX; improving), pain is less, tolerating a regular diet, shortness of breath (mild with activity) and afebrile; denies diarrhea, nausea and vomiting Exam Const General: cooperative, no acute distress and frail appearing Nutritional Appearance: average body habitus Eyes Periorbital: periorbital findings abnormal bilaterally periorbital erythema Sclera: sclerae normal Resp Effort & Inspection: normal respiratory effort Auscultation: diminished lung sounds and rales bilaterally at the base Cardio Rate: regular rate Rhythm: regular rhythm Heart Sounds: S1 normal and S2 normal GI Palpation: soft and nontender Extrem General: no calf tenderness and edema Laterality: bilateral (trace) Psych Appearance: grossly normal Mental Status: mental status grossly normal Speech and Movement: speech and movement normal Affect: normal affect Attitude: cooperative Objective Last Vital Signs Temp 36.8 C 06/16/20 11:14 Pulse 71 06/16/20 11:14 Resp 17 06/16/20 11:14 BP 126/71 06/16/20 11:14 Pulse Ox 96 06/16/20 11:14 Laboratory Results - last 24 hr 06/15/20 06/15/20 06/16/20 14:40 14:40 06:12 Sodium 130 L Potassium 2.5 L* 2.6 L* Chloride 89 L Carbon Dioxide 30.1 Anion Gap 10.9 BUN 91 H* Creatinine 2.35 H Estimated GFR/1.73 m2 19.71 Glucose 179 H Calcium 10.1 Troponin I 0.05
--- NOTE | 2020-06-16 15:20 | PHA.REVIEW ---
Pharmacy Admission Review - Admission Clinical Review (Last Reviewed 06/15/20 @ 16:02 by Rashi Romero MD) Generalized body aches (Acute) Hypokalemia (Acute) Chronic kidney disease (Acute) adhesive Allergy (Verified 06/15/20 10:23) egg Allergy (Verified 06/15/20 10:23) gluten Allergy (Verified 06/15/20 10:23) Influenza Virus Vaccines Allergy (Verified 06/15/20 10:23) pork derived (porcine) Allergy (Verified 06/15/20 10:23) warfarin [From Coumadin] Allergy (Verified 06/15/20 10:23) dapsone Adverse Reaction (Verified 06/15/20 10:23) dizziness, headache, nausea dairy Allergy (Uncoded 06/15/20 10:23) tape Allergy (Uncoded 06/15/20 10:23) Height 4 ft 9.87 in Weight 54.6 kg - Renal Dosing Renal Dosing: BUN 91 mg/dL (7-18) H* 06/16/20 06:12 Creatinine 2.35 mg/dL (0.55-1.02) H 06/16/20 06:12 Medications needing adjustments: Reviewed List of meds needing interventions: eCrCl is 12.8 ml/min, all orders ok, avoid addition of nephrotixic drugs, this is about baseline - Anticoagulation Anticoagulation: Hgb 9.8 g/dL (11.2-15.7) L 06/15/20 10:40 Hct 31.5 % (36.0-46.0) L 06/15/20 10:40 Plt Count 344 10^3/uL (130-400) 06/15/20 10:40 INR 1.1 (0.9-1.1) 06/15/20 10:40 Creatinine 2.35 mg/dL (0.55-1.02) H 06/16/20 06:12 Therapeutic Anticoagulation: Reviewed Medications: Apixaban - Opiate Usage Evaluate Pain Scale/Pains Meds: Reviewed Scheduled Bowel Reg ordered if on Opiates?: Yes - Relevant Labs Sodium 130 mmol/L (136-145) L 06/16/20 06:12 Potassium 2.6 mmol/L (3.5-5.1) L* 06/16/20 06:12 Chloride 89 mmol/L (98-107) L 06/16/20 06:12 Magnesium 1.9 mg/dL (1.8-2.4) 06/15/20 10:40 Electrolytes, C-Reactive P, ESR: Reviewed (30 meq of IV potassium infused today, received 20 meq yesterday; low sodium - retaining fluid?) - DM Control DM Control: Glucose 179 mg/dL (74-106) H 06/16/20 06:12 Insulin Dosing: Reviewed - Heart Failure/ND Heart Failure/ND: Troponin I 0.05 ng/mL (<0.06) 06/15/20 14:40 EF%, YOBANY's, B-Blockers, Diuretics: Reviewed (clonidine, imdur, losartan, metolazone, metoprolol, torsemide) - BP Control BP Control: Blood Pressure 126/71 Blood Pressure 115/54 Blood Pressure 124/68 If elevated: Reviewed - Qtc Review If Elevated: Reviewed List meds needing interventions: QTc 457 on admission - IV to PO Switch IV Medications: Reviewed - Home Meds Home Med List reviewed: Reviewed Relevent Home Meds Not ordered & why?: allopurinol and ramelteon -- just added to home med list, newly filled this month per external rx record - Current meds Current Medication Order Review: Reviewed - Comments Comments/Follow Ups: Continue to monitor vitals - daily wt & I/O, BMP -- especially K+, med changes
[2020-06-16 15:42] LABS: Potassium 3.5 mmol/L (3.5-5.1)
--- NOTE | 2020-06-16 16:15 | CHAPLAIN ---
When I visited Antonia today, her main concern was talking to the doctor. She said she hadn't seen him yet, although there's a physician's note entered for today. She said she needs some information from the doctor and she would like her daughter to be in on the conversation, at least by phone. Antonia and I know each other from previous admissions. Her is at [facility] in [place], [place] and doesn't understand why Antonia doesn't visit every day as she had been doing before COVID restrictions. I will continue to visit Antonia.
--- NOTE | 2020-06-16 16:32 | PDOC.CMIN ---
- If Service Date Differs Date of service: 06/16/20 Time of Service: 16:32 Care Management Initial Assess REASON FOR HOSPITALIZATION:: hypokalemia PAST MEDICAL HISTORY/PAST SURGICAL HISTORY:: Medical History. Asthma. Asthma. Atrial fibrillation. Bullous pemphigoid. CHF (congestive heart failure). Chronic kidney disease. CKD (chronic kidney disease). COPD (chronic obstructive pulmonary disease). Depression. HTN (hypertension). Hypercalcemia. Hypertension. MRSA cellulitis. PAF (paroxysmal atrial fibrillation). Presence of permanent cardiac pacemaker. Pulmonary hypertension. Surgical History. AICD (automatic cardioverter/defibrillator) present. H/O thoracic aortic aneurysm repair. History of thoracic aortic aneurysm repair. Pacemaker PREVIOUS FUNCTIONAL STATUS/SOCIAL/FAMILY SUPPORTS:: Antonia lives with her daughter, Orly, in [facility]. Antonia's , Adolfo, has dementia and lives permanently at [facility] in [place], [place]. Antonia and Adolfo formerly lived in [place], [place], but moved back to [place] a few years ago, due to Adolfo needing [place] [facility] care. Antonia reports she is independent with her most of her ADLs at baseline. She does not drive and depends on Orly for transportation. Orly also helps manage her meds and makes meals for her. She spends her days taking care of the house and walking with the dogs. She shares her daughter has trained Marco, a 3 year old Australian Florez, to be her guardian. He reportedly watches over Antonia and stands in front of her to keep her from walking whenever she is short of breath. CURRENT FUNCTIONAL STATUS:: Antonia was sitting up in her chair when ALBA met with her. She stated that she is cranky today, and that she is not happy that she hasn't seen the doctor yet. She reported that her Potassium is low, which is what is keeping her here, but she intends to go home, as soon as possible. ALBA found the MD, who reported that he has been in to speak to her, and spend time discussing her plan with her. ALBA discussed this with Antonia, who insists that she has not seen the MD, but also admits that she doesn't always remember things clearly. ALBA called her daughter, Antonia, while in Antonia's room to discuss the plan with both Antonia and Orly. Antonia will remain at [facility] to replete her Potassium, and will be discharged home once her labs stabilize. CM will continue to follow. ADVANCE DIRECTIVES:: On file; Orly is listed as Healthcare Agent, Jodee as alternate Has patient been provided with info about the portal/API?: Yes Did the patient sign up for the portal?: No CODE STATUS:: DNR/DNI INSURANCE COVERAGE / FINANCIAL ISSUES:: Medicare, [employer], and Financial Asst 85. CURRENT HOME/COMMUNITY SERVICES/EQUIPMENT:: Antonia has Home Health nursing twice a week. She reports she has a walker and a commode, but states those are in storage as she doesn't need them. PRIMARY CARE PHYSICIAN:: Cara Doll POTENTIAL DISCHARGE NEEDS:: PCP Follow up, Evaluation for further needs PATIENT/FAMILY EDUCATION NEEDS:: Discharge instructions, limitations, and follow up plan of care, including Ask Me Three and self management. ANTICIPATED BARRIERS TO DISCHARGE:: None at this time. TRANSPORTATION:: Via private vehicle by her daughter. PLAN:: Antonia will return home when medically cleared with a resumption of services. Her daughter will drive her home via private vehicle when ready. She will follow up with her PCP and discharge plan of care. CM will continue to follow and support discharge planning considerations.
[2020-06-16] MEDS: cloNIDine 0.1 MG TAB PO (20:54)
[2020-06-17 00:36] VITALS: PULSE 68
[2020-06-17] MEDS: Haloperidol 5 MG/ML VIAL 2.5 MG IM (01:59)
[2020-06-17 04:34] VITALS: BP 126/75; PULSE 74; RESP 18; TEMP 36.8; O2SAT 98
[2020-06-17 07:35] VITALS: BP 170/91; PULSE 65; RESP 20; TEMP 36.4; O2SAT 95
[2020-06-17] MEDS: Budesonide/Formoterol 160/4.5 6 GM 60 PUFF INH IH (07:51)
[2020-06-17] MEDS: Torsemide 20 MG TAB 60 MG PO (08:31)
[2020-06-17] MEDS: Metoprolol 25 MG TAB PO (08:32)
[2020-06-17] MEDS: Losartan 25 MG TAB PO (08:32)
[2020-06-17] MEDS: Isosorbide Mononitrate 30 MG TABCR PO (08:32)
[2020-06-17] MEDS: Potassium Chloride 20 MEQ TABCR 40 MEQ PO (08:32)
[2020-06-17] MEDS: Pantoprazole 40 MG TABCR PO (08:32)
[2020-06-17] MEDS: predniSONE 20 MG TAB PO (08:32)
[2020-06-17] MEDS: Apixaban 2.5 MG TAB PO (08:32)
--- NOTE | 2020-06-17 09:36 | W.PM.DS.N ---
Date of service: 06/17/20 Time of Service: 09:37 DS: Diagnosis Discharge Diagnosis (1) COPD (chronic obstructive pulmonary disease): Status: Chronic (2) Chronic kidney disease: Status: Acute (3) Adrenal insufficiency: Status: Chronic (4) CHF (congestive heart failure): Status: Chronic (5) Generalized body aches: Status: Acute (6) Hypokalemia: Status: Acute Discharge Plan Disposition Patient Disposition: HOME W/HOME HEALTH SERVICE Condition: Improving Discharge Details Reason For Visit: HYPOKALEMIA Admit Date/Time: 06/15/20 13:05 Admit Provider: Rashi Romero Attending Provider: Rashi Romero Primary Care Provider: Cara Doll Hospital Course Hospital Course: This is an 85 yo female with an extensive PMH of COPD, pulmonary fibrosis, CKD, acute on chronic diastolic CHF, peripheral neuropathy, adrenal insufficiency, PAF, pacemaker. She presented with genralized malaise, weakness, bodyaches. She endorsed a decrease in tase and smell sensation. Her symptoms started on Tuesday. She endorsed an inability to self ambulate since onset of symptoms. She has an aide in the home to assist with her care. No F/C. Mild cough w/o sputum. No diarrhea, N/V. She denies any falls. Her COVID-19 test was negative. K low at 2.5. Na 135. Creatinine elevated at 2.06. BUN high at 104. WBC normal. Hgb 9.8. CXR read by radiologist; no acute findings; chronic changes noted. UA tr leukocyte esterase, few bacteria, 3-5 WBC, few epis. She was given IV and oral K+ in the ED. With continued IV and oral K+ supplementation her K+ corrected to 3.5. Her generalized weakness and myalgias/arthralgias improved significantly. She will repeat a BMP on , 06/19/2020. Resume home health nursing. F/U with PCP in 1-2 weeks. Home Meds and New Rx's Prescriptions: Continued sennosides [Senokot] 8.6 mg tablet 8.6 mg PO HS PRNRF: 0 albuterol sulfate [Ventolin HFA] 90 mcg/actuation HFA aerosol inhaler 2 puff IH Q4H PRNRF: 0 polyethylene glycol 3350 17 gram powder in packet 17 g PO DAILY PRNRF: 0 metolazone 5 mg tablet 5 mg PO .twice weekly Qty: 60 RF: 8 docusate sodium [Colace] 100 mg capsule 100 mg PO TID PRNRF: 0 metoprolol tartrate 25 MG tablet 25 mg PO BID RF: 0 Eliquis 2.5 MG tablet 2.5 mg PO BID RF: 0 losartan 25 mg tablet 25 mg PO DAILY Qty: 30 RF: 12 isosorbide mononitrate 30 mg tablet extended release 24 hr 30 mg PO DAILY Qty: 90 RF: 3 clonidine HCl 0.1 mg tablet 0.1 mg PO HS RF: 0 pantoprazole 40 mg Tablet,Delayed Release (Dr/Ec) 40 mg PO DAILY RF: 0 theophylline 400 mg Tablet Extended Release 24 Hr 200 mg PO DAILY RF: 0 Breo Ellipta 200-25 mcg/dose blister with device 1 inh INHALATION DAILY RF: 0 potassium chloride [Klor-Con M20] 20 mEq Tablet,Er Particles/Crystals 40 meq PO DAILY Qty: 20 RF: 0 prednisone 5 mg tablet 5 mg PO DAILY Qty: 37 RF: 0 torsemide 20 mg tablet 60 mg PO BID RF: 0 hydrocodone-acetaminophen 5-325 mg tablet 1 tab PO QID PRNRF: 0 acetaminophen 500 mg Tablet 500 mg PO QID PRNRF: 0 allopurinol 100 mg tablet 100 mg PO BID RF: 0 ramelteon 8 mg tablet 8 mg PO HS RF: 0 Discharge Instructions Instructions: Hypokalemia (DC) Stand Alone Forms: Nursing Discharge Form Referrals: Cara Doll [Primary Care Provider] - 06/27/20 10:15 am Activity:: Activity as Tolerated Equipment/Supplies:: No Equipment Needed Diet:: Low Sodium Discharge Orders Discharge Orders: Discharge Order (Routine); Ordered 06/17/20 Ordered By: Rashi Romero Other Ambulatory Orders: Basic Metabolic Panel (Routine) Location: None Selected Ordered By: Rashi Romero DS: Summary Status at Discharge Functional status at discharge: uses cane/walker (as needed. Mostly ambulates unassisted) Overall status at discharge: patient is progressing back to baseline Mental Status: mental status grossly normal Speech and Movement: speech and movement normal Mood: congruent mood Affect: normal affect Exam Narrative Exam Narrative: Sitting in recliner. Const General: cooperative and no acute distress Nutritional Appearance: average body habitus Eyes Periorbital: periorbital findings abnormal bilaterally periorbital erythema (Improved) Sclera: sclerae normal Resp Effort & Inspection: normal respiratory effort Auscultation: diminished lung sounds and rales Cardio Rate: regular rate Rhythm: regular rhythm Heart Sounds: S1 normal, S2 normal and murmur GI Inspection: normal to inspection Palpation: soft and nontender Extrem General: no pedal edema and no calf tenderness Psych Appearance: grossly normal Mental Status: mental status grossly normal Speech and Movement: speech and movement normal Mood: congruent mood Affect: normal affect Insight: fair DS: Data Vitals/I&O Vitals and I&O: Vital Signs Temperature 36.4 C L 06/17/20 07:35 Temperature Source Tympanic 06/17/20 07:35 Pulse 65 06/17/20 07:35 Pulse Rhythm Regular 06/17/20 07:36 Pulse 66 06/15/20 12:50 Respiratory Rate 20 06/17/20 07:35 Respiratory Effort 06/17/20 07:36 Respiratory Depth Normal 06/17/20 07:36 Respiratory Pattern Normal 06/17/20 07:36 Blood Pressure 170/91 H 06/17/20 07:35 Blood Pressure Mean 71 06/15/20 12:46 Blood Pressure Position Supine 06/15/20 10:11 Pulse Oximetry 95 06/17/20 07:35 Oxygen Delivery Method Room Air 06/17/20 07:35 Oxygen Flow Rate 0 06/17/20 07:35 Pain Level 0 06/17/20 07:35 Comment 06/17/20 03:17 Intake & Output 06/16/20 06/16/20 06/17/20 11:59 23:59 11:59 Intake Total 445 / 1085 640 / 1085 490 / 490 Output Total 500 / 1400 900 / 1400 800 / 800 Balance -55 / -315 -260 / -315 -310 / -310 Weight 54.6 kg 54 kg Intake: IV 200 / 210 10 / 210 10 / 10 Oral 245 / 875 630 / 875 480 / 480 Output: Urine 500 / 1400 900 / 1400 800 / 800 Other: Urine Color Yellow Yellow Pale Yellow Urine Appearance Clear Clear Urine Odor Normal Comment Patient stated i have to pee however was unable to void Voiding Methods Toilet Toilet Toilet Data Completed and Pending Labs on day of discharge: Labs from last 24 hours 06/16/20 15:16 Potassium 3.5 PFS Medical History Asthma Asthma Atrial fibrillation Bullous pemphigoid CHF (congestive heart failure) Chronic kidney disease CKD (chronic kidney disease) COPD (chronic obstructive pulmonary disease) Depression HTN (hypertension) Hypercalcemia Hypertension MRSA cellulitis PAF (paroxysmal atrial fibrillation) Presence of permanent cardiac pacemaker Pulmonary hypertension Surgical History AICD (automatic cardioverter/defibrillator) present H/O thoracic aortic aneurysm repair History of thoracic aortic aneurysm repair Pacemaker Social History Smoking/Tobacco Use Status: Never Smoking risk assessment performed?: Yes Alcohol Intake: never Substance use type: does not use Household members: other Details: lives with daughter Orly Keller Do you feel safe at home: Yes Do you feel safe in your relationship?: Yes
--- NOTE | 2020-06-17 09:51 | PDOC.HHF2F_ITS ---
Home Health Certification Home Health Certification: 1. Encounter Date and Reason I certify that SHENA CUI was seen by Rashi Romero MD on 06/17/20 and that I had a [id number] encounter with this patient that meets the physician face to face encounter requirements. 2. Clinical Findings Supporting Skilled Need and Homebound Status I certify that home health services are medically necessary, include either intermittent retirement and/or physical/speech therapy, and that this pat ient is homebound in that absences from the home require considerable and taxing effort and are infrequent or of short duration, or are attributable to the need to receive medical care. [X] (a) Attached documentation from encounter provides clinical findings supporting skilled need and homebound status (including what assistance patient requires to leave the home). The encounter with the patient was in whole, or in part, for the following medical condition, which is the primary reason for home health care: HYPOKALEMIA Group Home: Resume services Physical Therapy: Speech Therapy: Homebound: 3. Certification and Authentication I certify that I composed the above information based on my clinical judgement relating to this patient's medical condition and, if applicable, clinical findings communicated to me by the NPP or inpatient physician who performed the Home Health Referral. All further orders will be obtained through (Community Based Physician - PCP)
--- NOTE | 2020-06-17 19:23 | PDOC.CMDIS ---
- If Service Date Differs Date of service: 06/17/20 Time of Service: 19:28 LACE Index Scoring Tool - Questions: Length of Stay (in days): 2 Acuity (Admit via E.D.?): Yes Comorbidities: Congestive Heart Failure, Chronic Pulmonary Disease, Liver or Renal Disease E.D. Visits: 3 - Answers: Total Score: 13 Risk of Readmission: High Risk Care Management Discharge Reason for Hospitalization: hypokalemia Discharge Plan: Antonia will return home with a resumption of RN today. She will be driven home by her daughter, Orly. She will follow up with her PCP and discharge plan of care. She is happy to be returning home. Patient/Family Education Needs: Review discharge instructions with Vane, discussion of self care need and goals of care. Services Needed at Discharge: Home Health Care Services (RN)
== END 2020-06-17 11:10 | disposition home health service (06) ==
LOC: ER 13:22 → MS 13:32
PROVIDERS: Admitting Provider Family Medicine; Emergency Provider Student in an Organized Health Care Education/Training Program; PCP Nurse Practitioner Family; Visit Provider Family Medicine
DX: E87.6 Hypokalemia (principal); J44.9 Chronic obstructive pulmonary disease, unspecified; R53.1 Weakness; R26.2 Difficulty in walking, not elsewhere classified; Z11.52 Encounter for screening for COVID-19; M79.10 Myalgia, unspecified site; J84.10 Pulmonary fibrosis, unspecified; I50.32 Chronic diastolic (congestive) heart failure; G62.9 Polyneuropathy, unspecified; E27.40 Unspecified adrenocortical insufficiency; I48.0 Paroxysmal atrial fibrillation; Z95.0 Presence of cardiac pacemaker; N18.4 Chronic kidney disease, stage 4 (severe)
CPT/HCPCS: 36415; 80048; 80053; 87637; 93005; 94640; 96361; 96365; 96366; 99222; 99232; 99239; 99285; U0003; 71045; 81003; 81015; 83735; 84132; 84484; 85025; 85610; 87086; 93010; 99217; 99219; 99225; 99284; G0378; J1630; J3480; J7512

== ENCOUNTER 2020-06-19 12:11 | Outpatient (REF) | payer MEDICARE, SELFPAY ==
[2020-06-19 13:44] LABS: Bilirubin Negative (Negative); Blood Large (Negative); Clarity Cloudy (Clear); Glucose Negative (Negative); Ketones Negative (Negative); Leukocyte Esterase Small (Negative); Nitrite Negative (Negative); Urobilinogen 0.2 EU/dL (Up TO 0.2); pH 8.5 (5-8)
[2020-06-19 13:47] LABS: Bacteria Many HPF (Negative); Other Cells Few Renal (Negative)
[2020-06-19 13:48] LABS: Epithelial Cells Many HPF (Negative)
[2020-06-19 13:49] LABS: C & S Indicated? No/Sq. Contamination
[2020-06-19 13:52] LABS: Anion Gap 8.6 mmol/L (3-11); BUN 77 mg/dL (7-18); CO2 30.4 mmol/L (21.0-32.0); CREATININE 2.81 mg/dL (0.55-1.02); Calcium 10.8 mg/dL (8.5-10.1); Chloride 91 mmol/L (98-107); Estimated GFR 16.03 (mL/min/1.73m2); Glucose 90 mg/dL (74-106); Potassium 3.4 mmol/L (3.5-5.1); Sodium 130 mmol/L (136-145)
== END 2020-06-19 12:31 ==
LOC: NCHCN 12:11
PROVIDERS: PCP Nurse Practitioner Family; Referring Provider Internal Medicine Cardiovascular Disease; Visit Provider Nurse Practitioner Family
DX: N18.9 Chronic kidney disease, unspecified (principal); E79.0 Hyperuricemia without signs of inflammatory arthritis and tophaceous disease; R30.0 Dysuria
CPT/HCPCS: 80048; 81003; 81015

== ENCOUNTER → 2020-06-20 09:39 | Outpatient (BNVA) | payer MEDICARE, SELFPAY | PROVIDERS: PCP Nurse Practitioner Family; Referring Provider Nurse Practitioner Family; Visit Provider Internal Medicine Cardiovascular Disease | DX: E87.6 Hypokalemia (principal); N18.4 Chronic kidney disease, stage 4 (severe); I50.33 Acute on chronic diastolic (congestive) heart failure; Z95.0 Presence of cardiac pacemaker; I48.0 Paroxysmal atrial fibrillation | CPT/HCPCS: 99214 ==

== ENCOUNTER 2020-06-24 14:26 | Outpatient (REF) | payer MEDICARE, SELFPAY ==
[2020-06-24 14:54] LABS: Abs Immature Grans 0.09 10^3/uL (0.0-0.06); Absolute Basophil Count 0.17 10^3/uL (0.0-0.2); Absolute Eosinophil Count 0.42 10^3/uL (0.0-0.7); Absolute Lymphocyte Count 1.71 10^3/uL (1.2-3.4); Absolute Monocyte Count 1.27 10^3/uL (0.1-0.8); Basophils % 1.4; Eosinophils % 3.5; HCT 34.7 % (36.0-46.0); HGB 10.4 g/dL (11.2-15.7); Immature Grans % 0.8; Lymphocytes % 14.3; MCH 26.4 pg (27.0-33.0); MCV 88.1 fL (80-95); MPV 9.8 fL (8.0-11.0); Monocytes % 10.6; Neutrophils % 69.4; Nucleated RBC 0 %; Platelet Count 390 10^3/uL (130-400); RBC 3.94 10^6/uL (3.93-5.22); RDW 15.9 % (11.7-14.6); RDW-SD 51.3 fL; WBC 11.99 10^3/uL (4.4-10.8)
[2020-06-24 15:02] LABS: Absolute Neutrophil Count 8.32 10^3/uL (1.2-6.7)
[2020-06-24 15:32] LABS: Anion Gap 10.2 mmol/L (3-11); BUN 65 mg/dL (7-18); CO2 30.8 mmol/L (21.0-32.0); Chloride 93 mmol/L (98-107); Estimated GFR 19.23 (mL/min/1.73m2); Glucose 108 mg/dL (74-106); Potassium 3.5 mmol/L (3.5-5.1); Sodium 134 mmol/L (136-145); TSH (W/Ref FT4) 2.17 uIU/mL (0.36-3.74); Vitamin B12 1457 pg/mL (193-986)
[2020-06-24 15:57] LABS: Calcium 11.7 mg/dL (8.5-10.1)
[2020-06-24 16:11] LABS: Uric Acid 12.3 mg/dL (2.6-6.0)
[2020-06-26 09:26] LABS: Parathyroid Hormone,Intact 229 pg/mL (19-88)
== END 2020-06-24 14:46 ==
LOC: NCHCN 14:26
PROVIDERS: PCP Nurse Practitioner Family; Visit Provider Nurse Practitioner Family
DX: R41.3 Other amnesia (principal); N18.9 Chronic kidney disease, unspecified; D64.9 Anemia, unspecified; R25.2 Cramp and spasm; Z51.81 Encounter for therapeutic drug level monitoring; E83.52 Hypercalcemia
CPT/HCPCS: 80048; 82607; 83970; 84443; 84550; 85025

== ENCOUNTER 2020-06-30 15:52 | Outpatient (CLI) | payer MEDICARE, SELFPAY ==
--- NOTE | 2020-06-30 | DI.US_ITS ---
EXAM: US RENAL CLINICAL HISTORY: RT FLANK PAIN, R10.9. TECHNIQUE: Burk scale, color and spectral Doppler were used. COMPARISON: US US RENAL from 07/18/2019 FINDINGS: Renal size in cm: Right: 8.0. Left: 9.3. Echogenicity: Normal. Hydronephrosis: No. Cyst or mass: No. Nephrolithiasis: No. Other findings: 3 mm nonshadowing echogenic focus in the left renal cortex. Bladder:Normal. No bladder wall thickening. Ureteral jets: Right: Not visualized on this examination. Left: Not visualized on this examination. Prevoid vol:199 cc Postvoid vol:12 cc Renal color flow: Symmetric and within normal limits. IMPRESSION: No evidence of a renal mass or hydronephrosis. DATA REPOSITORY:
== END 2020-06-30 16:12 ==
PROVIDERS: PCP Nurse Practitioner Family; Visit Provider Nurse Practitioner Family
DX: R10.9 Unspecified abdominal pain (principal)
CPT/HCPCS: 76770

== ENCOUNTER 2020-07-03 20:26 | Outpatient (REF) | payer MEDICARE, SELFPAY ==
[2020-07-03 19:03] LABS: Anion Gap 12.4 mmol/L (3-11); BUN 57 mg/dL (7-18); CO2 23.6 mmol/L (21.0-32.0); Chloride 101 mmol/L (98-107); Estimated GFR 14.87 (mL/min/1.73m2); Glucose 105 mg/dL (74-106); Potassium 5.1 mmol/L (3.5-5.1); Sodium 137 mmol/L (136-145); Uric Acid 8.3 mg/dL (2.6-6.0)
== END 2020-07-03 20:27 | disposition home or self-care (01) ==
LOC: NCHCN 20:26
PROVIDERS: PCP Nurse Practitioner Family; Visit Provider Nurse Practitioner Family
DX: N18.30 Chronic kidney disease, stage 3 unspecified (principal); E79.0 Hyperuricemia without signs of inflammatory arthritis and tophaceous disease
CPT/HCPCS: 80048; 84550

== ENCOUNTER 2020-07-04 02:17 | Outpatient (CLI) | payer MEDICARE, SELFPAY ==
--- NOTE | 2020-07-04 09:30 | DI.NM_ITS ---
CLINICAL HISTORY: ELEVATED PARATHYROID HORMONE,R79.89,? PARATHYROID ADENOMA. COMPARISON: NM Myocardial Perfusion from 09/25/2018 EXAMINATION: Injected Dose: 25 mCi Tc-99m sestamibi Initial Images: 15 minutes Delayed images: 2.5 hours SPECT images: Due to hardware malfunction, the SPECT images were obtained over 4 hours post-injection . FINDINGS: Initial imaging demonstrates symmetric thyroid uptake. Initial and delayed imaging demonstrates no ev idence of parathyroid adenoma. IMPRESSION: 1. No evidence of parathyroid adenoma.
== END 2020-07-04 02:18 | disposition home or self-care (01) ==
LOC: DI 02:17
PROVIDERS: PCP Nurse Practitioner Family; Visit Provider Nurse Practitioner Family
DX: R79.89 Other specified abnormal findings of blood chemistry (principal)
CPT/HCPCS: 78070

== ENCOUNTER 2020-07-15 15:33 | Outpatient (REF) | payer MEDICARE, SELFPAY ==
[2020-07-15 16:41] LABS: Anion Gap 11.4 mmol/L (3-11); BUN 39 mg/dL (7-18); CO2 26.6 mmol/L (21.0-32.0); CREATININE 2.1 mg/dL (0.55-1.02); Calcium 10.6 mg/dL (8.5-10.1); Chloride 99 mmol/L (98-107); Estimated GFR 22.44 (mL/min/1.73m2); Glucose 99 mg/dL (74-106); Potassium 4.3 mmol/L (3.5-5.1); Sodium 137 mmol/L (136-145); Uric Acid 7.8 mg/dL (2.6-6.0)
== END 2020-07-15 15:34 | disposition home or self-care (01) ==
LOC: NCHCN 15:33
PROVIDERS: PCP Nurse Practitioner Family; Visit Provider Nurse Practitioner Family
DX: E79.0 Hyperuricemia without signs of inflammatory arthritis and tophaceous disease (principal); E83.52 Hypercalcemia; E87.6 Hypokalemia
CPT/HCPCS: 80048; 84550

== ENCOUNTER 2020-07-22 11:31 | Outpatient (REF) | payer MEDICARE, SELFPAY ==
[2020-07-22 12:20] LABS: ALT 12 U/L (14-59); AST 19 U/L (15-37); Albumin 3.1 g/dL (3.4-5.0); Alkaline Phosphatase 97 U/L (46-116); Anion Gap 12.2 mmol/L (3-11); BUN 36 mg/dL (7-18); Bilirubin, Total 0.3 mg/dL (0.2-1.0); CO2 24.8 mmol/L (21.0-32.0); CREATININE 2.1 mg/dL (0.55-1.02); Calcium 9.9 mg/dL (8.5-10.1); Chloride 98 mmol/L (98-107); Estimated GFR 22.44 (mL/min/1.73m2); Glucose 86 mg/dL (74-106); PHOSPHORUS 3.2 mg/dL (2.6-4.7); Potassium 3.9 mmol/L (3.5-5.1); Sodium 135 mmol/L (136-145); Total Protein 6.8 g/dL (6.4-8.2); Uric Acid 7.2 mg/dL (2.6-6.0)
[2020-07-22 16:15] LABS: Abs Immature Grans 0.06 10^3/uL (0.0-0.06); Absolute Eosinophil Count 0.53 10^3/uL (0.0-0.7); Absolute Lymphocyte Count 0.97 10^3/uL (1.2-3.4); Absolute Monocyte Count 0.33 10^3/uL (0.1-0.8); Absolute Neutrophil Count 7.86 10^3/uL (1.2-6.7); Eosinophils % 5.4; HCT 26.7 % (36.0-46.0); Immature Grans % 0.6; Lymphocytes % 9.8; MCH 26.1 pg (27.0-33.0); MPV 10.1 fL (8.0-11.0); Monocytes % 3.4; Neutrophils % 79.8; Nucleated RBC 0 %; Platelet Count 405 10^3/uL (130-400); RBC 3.07 10^6/uL (3.93-5.22); RDW 17.3 % (11.7-14.6); RDW-SD 54.9 fL; WBC 9.85 10^3/uL (4.4-10.8)
[2020-07-23 09:39] LABS: Parathyroid Hormone,Intact 175 pg/mL (19-88)
[2020-07-23 14:23] LABS: Albumin 49.2 % (55.8-66.1); Total Protein 6.6 g/dL (6.3-8.2)
[2020-07-24 04:46] LABS: Vitamin D 25 Total 27.6 ng/ml (30-100)
== END 2020-07-22 11:32 | disposition home or self-care (01) ==
LOC: NCHCN 11:31
PROVIDERS: PCP Nurse Practitioner Family; Visit Provider Nurse Practitioner Family
DX: N18.30 Chronic kidney disease, stage 3 unspecified (principal); I13.0 Hypertensive heart and chronic kidney disease with heart failure and stage 1 through stage 4 chronic kidney disease, or unspecified chronic kidney disease
CPT/HCPCS: 80053; 82306; 83970; 84100; 84165; 84550; 85025

== ENCOUNTER → 2020-07-24 10:32 | Outpatient (BNVA) | payer MEDICARE, SELFPAY | PROVIDERS: PCP Nurse Practitioner Family; Referring Provider Nurse Practitioner Family; Visit Provider Internal Medicine Cardiovascular Disease | DX: N18.9 Chronic kidney disease, unspecified (principal); I50.33 Acute on chronic diastolic (congestive) heart failure; Z95.0 Presence of cardiac pacemaker | CPT/HCPCS: 99213 ==

== ENCOUNTER 2020-08-22 18:38 | Outpatient (REF) | payer MEDICARE, SELFPAY ==
[2020-08-22 19:35] LABS: Anion Gap 10.4 mmol/L (3-11); BUN 39 mg/dL (7-18); CO2 24.6 mmol/L (21.0-32.0); CREATININE 2.3 mg/dL (0.55-1.02); Calcium 9.9 mg/dL (8.5-10.1); Chloride 100 mmol/L (98-107); Glucose 99 mg/dL (74-106); PHOSPHORUS 2.7 mg/dL (2.6-4.7); Sodium 135 mmol/L (136-145); Uric Acid 6.4 mg/dL (2.6-6.0)
== END 2020-08-22 18:39 | disposition home or self-care (01) ==
LOC: LBN 18:38
PROVIDERS: PCP Nurse Practitioner Family; Visit Provider Internal Medicine Nephrology
DX: I50.33 Acute on chronic diastolic (congestive) heart failure (principal); N18.30 Chronic kidney disease, stage 3 unspecified
CPT/HCPCS: 80048; 84100; 84550

== ENCOUNTER → 2020-09-09 09:25 | Outpatient (BNVA) | payer MEDICARE, SELFPAY | PROVIDERS: PCP Nurse Practitioner Family; Referring Provider Nurse Practitioner Family; Visit Provider Internal Medicine Cardiovascular Disease | DX: I50.33 Acute on chronic diastolic (congestive) heart failure (principal); N18.4 Chronic kidney disease, stage 4 (severe); I13.0 Hypertensive heart and chronic kidney disease with heart failure and stage 1 through stage 4 chronic kidney disease, or unspecified chronic kidney disease; I48.0 Paroxysmal atrial fibrillation; Z79.01 Long term (current) use of anticoagulants | CPT/HCPCS: 99213 ==

== ENCOUNTER 2020-09-23 15:35 | Outpatient (REF) | payer MEDICARE, SELFPAY ==
[2020-09-23 16:41] LABS: Abs Immature Grans 0.03 10^3/uL (0.0-0.06); Absolute Basophil Count 0.09 10^3/uL (0.0-0.2); Absolute Eosinophil Count 1.39 10^3/uL (0.0-0.7); Absolute Monocyte Count 0.46 10^3/uL (0.1-0.8); Absolute Neutrophil Count 5.97 10^3/uL (1.2-6.7); Eosinophils % 15.7; HCT 25.8 % (36.0-46.0); HGB 7.6 g/dL (11.2-15.7); Immature Grans % 0.3; Lymphocytes % 10.2; MCH 25.6 pg (27.0-33.0); MCHC 29.5 % (32.0-36.0); MCV 86.9 fL (80-95); Monocytes % 5.2; Neutrophils % 67.6; Nucleated RBC 0 %; Platelet Count 351 10^3/uL (130-400); RBC 2.97 10^6/uL (3.93-5.22); RDW 17.6 % (11.7-14.6); RDW-SD 55.9 fL; WBC 8.84 10^3/uL (4.4-10.8)
[2020-09-23 17:10] LABS: Iron 20 ug/dL (50-170); Total Iron Binding Capacity 338 ug/dL (250-450); Transferrin Sat 6 % (15-50)
[2020-09-23 17:27] LABS: Albumin 3.4 g/dL (3.4-5.0); Anion Gap 9.4 mmol/L (3-11); BUN 38 mg/dL (7-18); CO2 25.6 mmol/L (21.0-32.0); CREATININE 1.8 mg/dL (0.55-1.02); Calcium 9.9 mg/dL (8.5-10.1); Chloride 101 mmol/L (98-107); Estimated GFR 26.81 (mL/min/1.73m2); Ferritin 43 ng/mL (8-252); Glucose 104 mg/dL (74-106); Potassium 4.6 mmol/L (3.5-5.1); Sodium 136 mmol/L (136-145)
[2020-09-23 17:52] LABS: PHOSPHORUS 2.6 mg/dL (2.6-4.7); Uric Acid 5.9 mg/dL (2.6-6.0)
[2020-09-25 10:09] LABS: Parathyroid Hormone,Intact 107 pg/mL (19-88)
== END 2020-09-23 15:36 | disposition home or self-care (01) ==
LOC: LBN 15:35
PROVIDERS: PCP Nurse Practitioner Family; Visit Provider Internal Medicine Nephrology
DX: N18.30 Chronic kidney disease, stage 3 unspecified (principal); I10 Essential (primary) hypertension; D64.9 Anemia, unspecified; E79.0 Hyperuricemia without signs of inflammatory arthritis and tophaceous disease
CPT/HCPCS: 80048; 82040; 82728; 83540; 83550; 83970; 84100; 84550; 85025

== ENCOUNTER 2020-10-08 13:03 | Emergency (ER) | payer MEDICARE, SELFPAY ==
[2020-10-08] VITALS (24 sets, daily range): BP systolic 104–125; BP diastolic 49–80; PULSE 60–66; RESP 15–24; TEMP 36.6; O2SAT 98–100
[2020-10-08 13:48] LABS: Abs Immature Grans 0.04 10^3/uL (0.0-0.06); Absolute Basophil Count 0.13 10^3/uL (0.0-0.2); Absolute Eosinophil Count 1.03 10^3/uL (0.0-0.7); Absolute Lymphocyte Count 1.08 10^3/uL (1.2-3.4); Absolute Monocyte Count 0.25 10^3/uL (0.1-0.8); Basophils % 1.2; Eosinophils % 9.6; HCT 27.7 % (36.0-46.0); HGB 8.1 g/dL (11.2-15.7); Immature Grans % 0.4; Lymphocytes % 10.1; MCH 25.4 pg (27.0-33.0); MCHC 29.2 % (32.0-36.0); MCV 86.8 fL (80-95); MPV 9.7 fL (8.0-11.0); Monocytes % 2.3; Neutrophils % 76.4; Nucleated RBC 0 %; Platelet Count 353 10^3/uL (130-400); RBC 3.19 10^6/uL (3.93-5.22); RDW 17.5 % (11.7-14.6); RDW-SD 55.7 fL; WBC 10.73 10^3/uL (4.4-10.8)
[2020-10-08 13:51] LABS: ESR 85 mm//hr (0-30)
[2020-10-08 13:57] LABS: ALT 11 U/L (14-59); AST 16 U/L (15-37); Albumin 3.4 g/dL (3.4-5.0); Alkaline Phosphatase 101 U/L (46-116); Anion Gap 12.4 mmol/L (3-11); BUN 39 mg/dL (7-18); Bilirubin, Total 0.2 mg/dL (0.2-1.0); CO2 24.6 mmol/L (21.0-32.0); CREATININE 2.2 mg/dL (0.55-1.02); Calcium 10.4 mg/dL (8.5-10.1); Chloride 100 mmol/L (98-107); Estimated GFR 21.26 (mL/min/1.73m2); Glucose 177 mg/dL (74-106); Potassium 4.4 mmol/L (3.5-5.1); Sodium 137 mmol/L (136-145); Total Protein 7.7 g/dL (6.4-8.2)
--- NOTE | 2020-10-08 15:40 | ED.GENADUL_ITS ---
Discharge Plan Disposition Patient Disposition: HOME Condition: Stable Discharge Details Clinical Impression: Cellulitis of left middle finger Primary Care Provider: Cara Doll ED Provider: Simone Constantino Home Meds and New Rx's Prescriptions: New sulfamethoxazole-trimethoprim [Bactrim DS] 800-160 mg tablet 1 tab PO BID Qty: 20 RF: 0 indomethacin 25 mg capsule 25 mg PO TID PRN (Reason: pain, moderate) Qty: 10 RF: 0 Continued albuterol sulfate [Ventolin HFA] 90 mcg/actuation HFA aerosol inhaler 2 puff IH Q4H PRNRF: 0 polyethylene glycol 3350 17 gram powder in packet 17 g PO DAILY PRNRF: 0 docusate sodium [Colace] 100 mg capsule 100 mg PO TID PRNRF: 0 lidocaine 5 % cream 1 applic topical BID PRNRF: 0 metoprolol tartrate 25 MG tablet 25 mg PO BID RF: 0 Eliquis 2.5 MG tablet 2.5 mg PO BID RF: 0 losartan 25 mg tablet 25 mg PO DAILY Qty: 30 RF: 12 isosorbide mononitrate 30 mg tablet extended release 24 hr 30 mg PO DAILY Qty: 90 RF: 3 clonidine HCl 0.1 mg tablet 0.1 mg PO HS RF: 0 pantoprazole 40 mg Tablet,Delayed Release (Dr/Ec) 40 mg PO DAILY RF: 0 theophylline 400 mg Tablet Extended Release 24 Hr 200 mg PO DAILY RF: 0 Breo Ellipta 200-25 mcg/dose blister with device 1 inh INHALATION DAILY RF: 0 potassium chloride [Klor-Con M20] 20 mEq Tablet,Er Particles/Crystals 40 meq PO DAILY Qty: 20 RF: 0 prednisone 5 mg tablet 5 mg PO DAILY Qty: 37 RF: 0 torsemide 20 mg tablet 60 mg PO BID RF: 0 acetaminophen 500 mg Tablet 500 mg PO QID PRNRF: 0 Discharge Instructions Instructions: Cellulitis (ED) Additional Instructions: After your evaluation here in the ER, I have per fully spoken with orthopedics, Dr. Del Angel. He would like me to initiate both Bactrim and indomethacin medication. Wound culture is pending. Please follow-up in his office tomorrow at 1 PM. Rest, elevate, warm compresses every 2 hours for 20 minutes. Wear dressing and use splint as needed for comfort. Please watch for new or worsening symptoms and return to the ER for any concerns. Referrals: Brain Del Angel MD [ [facility] STAFF PHYSICIAN] - Medical Decision Making 85-year-old female sent to the ER for evaluation of a potential osteomyelitis of the left hand. By chance during my evaluation Dr. Schultz was in the ER, we discussed the case and she recommended getting orthopedics involved. In the meantime I am obtaining CBC, CMP, ESR, CRP and blood cultures. Initially would like to obtain MRI but given the patient has a pacemaker she is not a candidate. Patient appears well, afebrile, no signs of systemic infection. White blood cell count is 10.73, creatinine 2.2 GFR 21.26, CRP 2.2 ESR 85 I was able to discuss the case with Dr. Del Angel regarding her presentation today, laboratory values, and x-ray. It sounds as though he has additional background information on the patient and this is a new more of a chronic problem than what was presented to me here in the ER. His plan is to research the case a bit more and to call me back. I received a call back, he would like me to initiate oral Bactrim DS as well as Indocin. 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 I will culture the wound, unfortunately there is no fluid to collect for cell count, crystals, etc. Will dress the wound, splint the finger, and he will personally evaluate the patient tomorrow in his office at 1 PM. He was able to get the patient a referral to [facility] hand specialist in [facility] on Tuesday of next week and depending on the evaluation tomorrow he will determine what to do next. He has no additional recommendations while she is here in the ER. I discussed this plan with both patient and her daughter Orly who are agreeable. Orly is agreeable to pick her up in her current condition and will bring her to the office of Dr. Del Angel tomorrow for an outpatient appointment at 1 PM. Standard discharge and return precautions were given. Patient was encouraged to return to the ER for new or worsening symptoms Medical Records Medical records reviewed: Yes I reviewed the patient's medical records. Lab Data Lab results reviewed: Yes I reviewed the patient's lab results. Labs: 10/08/20 15:35 Finger - Left Third Digit Wound Culture - Pending 10/08/20 15:35 Finger - Left Third Digit Gram Stain - Pending 10/08/20 14:20 Blood Blood Culture - Pending 10/08/20 13:25 Blood Blood Culture - Pending Laboratory Tests Range/Units 10/08/20 10/08/20 10/08/20 13:25 13:25 13:25 WBC (4.4-10.8) 10^3/uL 10.73 RBC (3.93-5.22) 10^6/uL 3.19 L Hgb (11.2-15.7) g/dL 8.1 L Hct (36.0-46.0) % 27.7 L MCV (80-95) fL 86.8 MCH (27.0-33.0) pg 25.4 L MCHC (32.0-36.0) % 29.2 L RDW (11.7-14.6) % 17.5 H Plt Count (130-400) 10^3/uL 353 MPV (8.0-11.0) fL 9.7 Immature Gran % 0.4 Neutrophils % 76.4 Lymphocytes % 10.1 Monocytes % 2.3 Eosinophils % 9.6 Basophils % 1.2 Nucleated RBC % % 0 Absolute Neutrophils (1.2-6.7) 10^3/uL 8.20 H Absolute Lymphocytes (1.2-3.4) 10^3/uL 1.08 L Absolute Monocytes (0.1-0.8) 10^3/uL 0.25 Absolute Eosinophils (0.0-0.7) 10^3/uL 1.03 H Absolute Basophils (0.0-0.2) 10^3/uL 0.13 ESR (0-30) mm//hr 85 H Sodium (136-145) mmol/L 137 Potassium (3.5-5.1) mmol/L 4.4 Chloride (98-107) mmol/L 100 Carbon Dioxide (21.0-32.0) mmol/L 24.6 Anion Gap (3-11) mmol/L 12.4 H BUN (7-18) mg/dL 39 H Creatinine (0.55-1.02) mg/dL 2.2 H Estimated GFR/1.73 m2 (mL/min/1.73m2) 21.26 Glucose (74-106) mg/dL 177 H Calcium (8.5-10.1) mg/dL 10.4 H Total Bilirubin (0.2-1.0) mg/dL 0.2 AST (15-37) U/L 16 ALT (14-59) U/L 11 L Alkaline Phosphatase (46-116) U/L 101 C-Reactive Protein (0.0-0.3) mg/dL 2.20 H Total Protein (6.4-8.2) g/dL 7.7 Albumin (3.4-5.0) g/dL 3.4 HPI General Mode of arrival: wheelchair . Date/Time Provider Initiated Documentation: 10/08/20 13:11 . Limitations to Documentation: no limitations . Information obtained by: patient and family . HPI Narrative: This is a 85-year-old female, [id number], palliative care patient, DNR, DNI, past medical history that includes asthma, proximal A. fib, CHF, chronic kidney disease, COPD, depression, hypertension,, history of MRSA cellulitis, pacemaker present, who lives with her daughter Orly. HPI was obtained both through patient and her daughter Orly. Apparently patient has chronic gout and gouty flareups, she felt as though her left middle finger had a gouty flareup over the past few weeks. Approximately 1 week ago she was seen by her primary care provider, thought there may be an infection. She was given a single gram of IM Rocephin and placed on Augmentin twice daily for the past 7 days. She had a second dose of IM Rocephin today and she took her last dose of Augmentin this morning. The finger is red, swollen, moderately painful, draining, and she was sent here for further evaluation. Outpatient x-ray was read as a possible osteomyelitis. Patient denies any fevers, denies rash, recent illness or trauma. Related Data Home Medications Medication Instructions Recorded Confirmed Eliquis 2.5 mg PO BID tab-cap 09/17/16 06/20/20 metoprolol tartrate 25 mg PO BID tab-cap 09/17/16 06/20/20 albuterol sulfate 90 mcg/actuation 2 puff IH Q4H PRN gm 10/30/18 06/20/20 aerosol inhaler polyethylene glycol 3350 17 gram 17 g PO DAILY PRN each 11/27/18 06/20/20 oral powder packet docusate sodium 100 mg capsule 100 mg PO TID PRN cap 06/13/19 06/20/20 pantoprazole 40 mg PO DAILY 07/17/19 06/20/20 theophylline 200 mg PO DAILY 07/17/19 06/20/20 losartan 25 mg tablet 25 mg PO DAILY #30 tab 12/28/19 06/20/20 isosorbide mononitrate 30 mg 30 mg PO DAILY #90 tab 03/10/20 06/20/20 tablet,extended release 24 hr Breo Ellipta 1 inh INHALATION DAILY 03/30/20 06/20/20 potassium chloride [Klor-Con M20] 40 meq PO DAILY #20 tab 04/05/20 06/20/20 prednisone 5 mg PO DAILY #37 tab 04/05/20 06/20/20 acetaminophen 500 mg PO QID PRN 06/15/20 06/20/20 torsemide 60 mg PO BID 06/15/20 06/20/20 clonidine HCl 0.1 mg PO HS 06/16/20 06/20/20 lidocaine 5 % topical cream 1 applic TOPICAL BID PRN 06/18/20 06/20/20 indomethacin 25 mg PO TID PRN #10 cap 10/08/20 sulfamethoxazole-trimethoprim 1 tab PO BID #20 tab 10/08/20 [Bactrim DS] Previous Rx's Medication Instructions Recorded losartan 25 mg tablet 25 mg PO DAILY #30 tab 12/28/19 isosorbide mononitrate 30 mg 30 mg PO DAILY #90 tab 03/10/20 tablet,extended release 24 hr potassium chloride [Klor-Con M20] 40 meq PO DAILY #20 tab 04/05/20 prednisone 5 mg PO DAILY #37 tab 04/05/20 indomethacin 25 mg PO TID PRN #10 cap 10/08/20 sulfamethoxazole-trimethoprim 1 tab PO BID #20 tab 10/08/20 [Bactrim DS] Allergies Allergy/AdvReac Type Severity Reaction Status Date / Time adhesive Allergy Verified 10/08/20 13:20 egg Allergy Verified 10/08/20 13:20 gluten Allergy Verified 10/08/20 13:20 Influenza Virus Vaccines Allergy Verified 10/08/20 13:20 pork derived (porcine) Allergy Verified 10/08/20 13:20 warfarin [From Coumadin] Allergy Verified 10/08/20 13:20 dapsone AdvReac dizziness, Verified 10/08/20 13:20 headache, nausea dairy Allergy Uncoded 10/08/20 13:20 tape Allergy Uncoded 10/08/20 13:20 General Stated Complaint: GenMedical WESLEY: 3 Review of Systems Constitutional Constitutional: Denies fever(s), Denies headache(s) and Denies weakness ENT Ears, Nose, Mouth, and Throat: Denies headache(s) and Denies neck pain Cardiovascular Cardiovascular: Denies chest pain and Denies dyspnea Respiratory Respiratory: Denies cough and Denies dyspnea Gastrointestinal Gastrointestinal: Denies abdominal pain, Denies nausea and Denies vomiting Musculoskeletal Musculoskeletal: Denies back pain, Denies neck pain and Denies tingling Integumentary/Breasts Skin/Breast: Reports erythema Neurologic Neurologic: Denies headache(s), Denies tingling and Denies weakness PFS Medical History Asthma Asthma Atrial fibrillation Bullous pemphigoid CHF (congestive heart failure) Chronic kidney disease CKD (chronic kidney disease) COPD (chronic obstructive pulmonary disease) Depression DNI (do not intubate) DNR (do not resuscitate) Falls HTN (hypertension) Hypercalcemia Hypertension MRSA cellulitis PAF (paroxysmal atrial fibrillation) Palliative care patient POLST (Physician Orders for Life-Sustaining Treatment) Presence of permanent cardiac pacemaker Pulmonary hypertension Surgical History AICD (automatic cardioverter/defibrillator) present H/O thoracic aortic aneurysm repair History of thoracic aortic aneurysm repair Pacemaker Social History Smoking/Tobacco Use Status: Never Smoking risk assessment performed?: Yes Alcohol Intake: never Substance use type: does not use Household members: other Details: lives with daughter Orly Keller What type of physical activity do you participate in: none Do you feel safe at home: Yes Do you feel safe in your relationship?: Yes Exam Const General: cooperative, healthy appearing, comfortable and no acute distress Orientation: alert and awake HENMT Head: normal to inspection, normocephalic and atraumatic Face and sinus: normal facial exam Mouth: moist mucous membranes Eyes General: appearance normal, both eyes and all related structures Conjunctivae: conjunctivae normal Neck Neck: normal visual inspection, full ROM, trachea midline and supple Resp Effort & Inspection: normal respiratory effort and able to speak in complete sentences Auscultation: clear to auscultation bilaterally Cardio Rate: regular rate Rhythm: abnormal rhythm irregularly irregular GI Palpation: soft and nontender Back/Spine/Pelvis Back: No back tenderness Skin Lesions: no lesions Neuro General: patient alert, patient awake, moves all extremities and no focal motor deficits Cognition: normal cognition Speech: speech normal Sensory Exam: no sensory deficits noted Extrem Other: Left hand, normal radial pulse and capillary refill. Third digit circumferential midway between the MCP and PIP joint down to near the nailbed there is diffuse mild swelling, erythema, warmth, tenderness, worse on the extensor aspect. There is limited range of motion both the PIP and DIP joint. On the extensor aspect just distal to the PIP joint there is an open shallow wound which appears to be draining a serous fluid. There is no pointing abscess or obvious purulent drainage or gouty tophi drainage. Psych Appearance: grossly normal Mental Status: mental status grossly normal Course Vital Signs Vital signs: Vital Signs Temperature 36.6 C 10/08/20 13:13 Pulse 62 10/08/20 13:13 Respiratory Rate 10/08/20 13:13 Blood Pressure 108/52 L 10/08/20 13:13 Pulse Oximetry 100 10/08/20 13:13 Temperature 36.6 C 10/08/20 13:13 Temperature Source Skin 10/08/20 13:13 Pulse 61 10/08/20 14:16 Pulse 62 10/08/20 14:50 Respiratory Rate 19 10/08/20 14:50 Respiratory Effort Non-Labored 10/08/20 13:19 Blood Pressure 110/53 L 10/08/20 14:16 Blood Pressure Mean 66 10/08/20 14:16 Blood Pressure Position Sitting 10/08/20 13:13 Pulse Oximetry 98 10/08/20 14:50 Oxygen Delivery Method Room Air 10/08/20 13:13 Oxygen Flow Rate 0 10/08/20 13:13 Pain Level 9 10/08/20 13:13 Lab/Test Results Lab/Test Results: 10/08/20 15:31 Finger - Left Third Digit Wound Culture - Pending 10/08/20 15:31 Finger - Left Third Digit Gram Stain - Pending 10/08/20 14:20 Blood Blood Culture - Pending 10/08/20 13:25 Blood Blood Culture - Pending Laboratory Tests Range/Units 10/08/20 10/08/20 10/08/20 13:25 13:25 13:25 WBC (4.4-10.8) 10^3/uL 10.73 RBC (3.93-5.22) 10^6/uL 3.19 L Hgb (11.2-15.7) g/dL 8.1 L Hct (36.0-46.0) % 27.7 L MCV (80-95) fL 86.8 MCH (27.0-33.0) pg 25.4 L MCHC (32.0-36.0) % 29.2 L RDW (11.7-14.6) % 17.5 H Plt Count (130-400) 10^3/uL 353 MPV (8.0-11.0) fL 9.7 Immature Gran % 0.4 Neutrophils % 76.4 Lymphocytes % 10.1 Monocytes % 2.3 Eosinophils % 9.6 Basophils % 1.2 Nucleated RBC % % 0 Absolute Neutrophils (1.2-6.7) 10^3/uL 8.20 H Absolute Lymphocytes (1.2-3.4) 10^3/uL 1.08 L Absolute Monocytes (0.1-0.8) 10^3/uL 0.25 Absolute Eosinophils (0.0-0.7) 10^3/uL 1.03 H Absolute Basophils (0.0-0.2) 10^3/uL 0.13 ESR (0-30) mm//hr 85 H Sodium (136-145) mmol/L 137 Potassium (3.5-5.1) mmol/L 4.4 Chloride (98-107) mmol/L 100 Carbon Dioxide (21.0-32.0) mmol/L 24.6 Anion Gap (3-11) mmol/L 12.4 H BUN (7-18) mg/dL 39 H Creatinine (0.55-1.02) mg/dL 2.2 H Estimated GFR/1.73 m2 (mL/min/1.73m2) 21.26 Glucose (74-106) mg/dL 177 H Calcium (8.5-10.1) mg/dL 10.4 H Total Bilirubin (0.2-1.0) mg/dL 0.2 AST (15-37) U/L 16 ALT (14-59) U/L 11 L Alkaline Phosphatase (46-116) U/L 101 C-Reactive Protein (0.0-0.3) mg/dL 2.20 H Total Protein (6.4-8.2) g/dL 7.7 Albumin (3.4-5.0) g/dL 3.4
[2020-10-08] MEDS: Indomethacin 25 MG CAP PO (15:54)
[2020-10-08] MEDS: Sulfameth/Trimeth DS TAB 1 TAB PO (15:54)
== END 2020-10-08 16:37 | disposition home or self-care (01) ==
PROVIDERS: Emergency Provider Physician Assistant; PCP Nurse Practitioner Family
DX: L03.012 Cellulitis of left finger (principal)
CPT/HCPCS: 36415; 80053; 85652; 87040; 87077; 99283; 73140; 85025; 86140; 87070; 87186; 87205

== ENCOUNTER 2020-10-08 14:59 | Outpatient (CLI) | payer MEDICARE, SELFPAY ==
--- NOTE | 2020-10-08 | DI.RAD_ITS ---
Exam(s) XR FINGER LT MIDDLE EXAM: XR FINGER LT MIDDLE CLINICAL HISTORY: INFECTION OF FINGER, L08.9. TECHNIQUE: 2D digital imaging was performed. COMPARISON: No exams were available for comparison FINDINGS: There is virtual absence of the proximal and mid aspect of the distal phalanx of the 3rd-middle finge r. Given that there is a history of infection this most probably related to osteomyelitis. There is small amount of the tuft remaining of the distal phalanx as well as the proximal cortex. There is o steopenia but no similar complete bone loss in the distal aspect head-neck of the middle phalanx of t he [id number] finger. Otherwise, there are multilevel degenerative changes in the hand. Also what appears to be a displace d fracture at the base of the distal phalanx of the thumb which may not be acute. Most significant degenerative changes in the metacarpophalangeal joints are at the level of 3rd-middl e finger. IMPRESSION: Multilevel findings but the main acute finding here is advanced bone loss-ghosting of the distal phal anx of the 3rd-middle finger consistent with probable osteomyelitis sequela. DATA REPOSITORY: RADIATION DOSE DELIVERED:
== END 2020-10-08 15:19 ==
PROVIDERS: PCP Nurse Practitioner Family; Visit Provider Physician Assistant Medical
DX: L03.012 Cellulitis of left finger (principal); L08.89 Other specified local infections of the skin and subcutaneous tissue; M85.88 Other specified disorders of bone density and structure, other site
CPT/HCPCS: 73140

== ENCOUNTER 2020-10-08 16:17 | Outpatient (REF) | payer MEDICARE, SELFPAY ==
[2020-10-08 16:54] LABS: Abs Immature Grans 0.04 10^3/uL (0.0-0.06); Absolute Eosinophil Count 1.55 10^3/uL (0.0-0.7); Absolute Lymphocyte Count 0.97 10^3/uL (1.2-3.4); Absolute Monocyte Count 0.56 10^3/uL (0.1-0.8); Basophils % 0.7; Eosinophils % 12.8; HCT 27.5 % (36.0-46.0); Immature Grans % 0.3; MCH 25.2 pg (27.0-33.0); MCHC 29.1 % (32.0-36.0); MCV 86.8 fL (80-95); MPV 10.3 fL (8.0-11.0); Monocytes % 4.6; Neutrophils % 73.6; Nucleated RBC 0 %; Platelet Count 372 10^3/uL (130-400); RBC 3.17 10^6/uL (3.93-5.22); RDW 17.7 % (11.7-14.6); RDW-SD 56.3 fL
[2020-10-08 16:58] LABS: Absolute Basophil Count 0.08 10^3/uL (0.0-0.2); Absolute Neutrophil Count 8.91 10^3/uL (1.2-6.7)
== END 2020-10-08 16:18 | disposition home or self-care (01) ==
LOC: NCHCN 16:17
PROVIDERS: PCP Nurse Practitioner Family; Visit Provider Physician Assistant Medical
DX: L08.89 Other specified local infections of the skin and subcutaneous tissue (principal); L03.012 Cellulitis of left finger
CPT/HCPCS: 85025; 86140; 87070; 87205

== ENCOUNTER → 2020-10-09 13:01 | Outpatient (BNVA) | payer MEDICARE, SELFPAY | PROVIDERS: PCP Nurse Practitioner Family; Referring Provider Student in an Organized Health Care Education/Training Program; Visit Provider Physician Assistant | DX: L03.012 Cellulitis of left finger (principal); M10.9 Gout, unspecified; N18.9 Chronic kidney disease, unspecified | CPT/HCPCS: 99214 ==

== ENCOUNTER 2020-10-16 10:50 | Outpatient (REF) | payer MEDICARE, SELFPAY ==
[2020-10-16 15:07] LABS: HCT 26.3 % (36.0-46.0); MCH 25.6 pg (27.0-33.0); MCHC 30.4 % (32.0-36.0); MCV 84.3 fL (80-95); MPV 10.1 fL (8.0-11.0); Platelet Count 346 10^3/uL (130-400); RBC 3.12 10^6/uL (3.93-5.22); RDW 18.8 % (11.7-14.6); RDW-SD 56.2 fL; WBC 8.69 10^3/uL (4.4-10.8)
[2020-10-16 15:40] LABS: Anion Gap 11.9 mmol/L (3-11); BUN 40 mg/dL (7-18); CO2 24.1 mmol/L (21.0-32.0); CREATININE 3.4 mg/dL (0.55-1.02); Calcium 10.5 mg/dL (8.5-10.1); Chloride 96 mmol/L (98-107); Estimated GFR 12.87 (mL/min/1.73m2); Glucose 87 mg/dL (74-106); NT-proBNP 2562 pg/mL (<300); Potassium 4.7 mmol/L (3.5-5.1); Sodium 132 mmol/L (136-145)
[2020-10-17 17:38] LABS: Erythropoietin 21.6 mIU/mL (2.6 - 18.5)
== END 2020-10-16 10:51 | disposition home or self-care (01) ==
LOC: NCHCN 10:50
PROVIDERS: PCP Nurse Practitioner Family; Visit Provider Nurse Practitioner Family
DX: I50.33 Acute on chronic diastolic (congestive) heart failure (principal); I10 Essential (primary) hypertension; I27.20 Pulmonary hypertension, unspecified; N18.4 Chronic kidney disease, stage 4 (severe)
CPT/HCPCS: 80048; 82668; 85027; 83880

== ENCOUNTER 2020-10-20 09:24 | Outpatient (REF) | payer MEDICARE, SELFPAY ==
[2020-10-20 16:41] LABS: HCT 26.4 % (36.0-46.0); HGB 7.8 g/dL (11.2-15.7); MCH 25.4 pg (27.0-33.0); MCHC 29.5 % (32.0-36.0); MPV 10.1 fL (8.0-11.0); Platelet Count 357 10^3/uL (130-400); RBC 3.07 10^6/uL (3.93-5.22); RDW 19.1 % (11.7-14.6); RDW-SD 59.8 fL; WBC 9.16 10^3/uL (4.4-10.8)
[2020-10-20 17:04] LABS: Anion Gap 13.8 mmol/L (3-11); BUN 54 mg/dL (7-18); CO2 23.2 mmol/L (21.0-32.0); CREATININE 3.5 mg/dL (0.55-1.02); Calcium 9.4 mg/dL (8.5-10.1); Chloride 102 mmol/L (98-107); Estimated GFR 12.44 (mL/min/1.73m2); Glucose 79 mg/dL (74-106); NT-proBNP 3445 pg/mL (<300); Potassium 4.1 mmol/L (3.5-5.1); Sodium 139 mmol/L (136-145); Uric Acid 5.8 mg/dL (2.6-6.0)
== END 2020-10-20 09:25 | disposition home or self-care (01) ==
LOC: NCHCN 09:24
PROVIDERS: PCP Nurse Practitioner Family; Visit Provider Nurse Practitioner Family
DX: M1A.00X1 Idiopathic chronic gout, unspecified site, with tophus (tophi) (principal); E87.6 Hypokalemia; N17.9 Acute kidney failure, unspecified; L08.89 Other specified local infections of the skin and subcutaneous tissue; I50.9 Heart failure, unspecified
CPT/HCPCS: 80048; 85027; 83880; 84550

== ENCOUNTER 2020-10-28 18:31 | Outpatient (REF) | payer MEDICARE, SELFPAY ==
[2020-10-28 19:20] LABS: HCT 28.4 % (36.0-46.0); HGB 8.3 g/dL (11.2-15.7); MCH 26.3 pg (27.0-33.0); MCHC 29.2 % (32.0-36.0); MCV 89.9 fL (80-95); MPV 10.2 fL (8.0-11.0); Platelet Count 319 10^3/uL (130-400); RBC 3.16 10^6/uL (3.93-5.22); RDW 21.8 % (11.7-14.6); RDW-SD 70.2 fL; WBC 8.84 10^3/uL (4.4-10.8)
[2020-10-28 19:22] LABS: BUN 39 mg/dL (7-18); CREATININE 2.1 mg/dL (0.55-1.02); Calcium 10.4 mg/dL (8.5-10.1); Chloride 104 mmol/L (98-107); Estimated GFR 22.44 (mL/min/1.73m2); Glucose 121 mg/dL (74-106); Potassium 4.8 mmol/L (3.5-5.1); Sodium 142 mmol/L (136-145)
[2020-10-28 20:01] LABS: NT-proBNP 1395 pg/mL (<300)
== END 2020-10-28 18:32 | disposition home or self-care (01) ==
LOC: NCHCN 18:31
PROVIDERS: PCP Nurse Practitioner Family; Visit Provider Nurse Practitioner Family
DX: I50.9 Heart failure, unspecified (principal); R53.83 Other fatigue; N18.9 Chronic kidney disease, unspecified
CPT/HCPCS: 80048; 85027; 83880

== ENCOUNTER → 2020-10-29 09:17 | Outpatient (BNVA) | payer MEDICARE, SELFPAY | PROVIDERS: PCP Nurse Practitioner Family; Referring Provider Nurse Practitioner Family; Visit Provider Internal Medicine Cardiovascular Disease | DX: I48.91 Unspecified atrial fibrillation (principal); Z45.018 Encounter for adjustment and management of other part of cardiac pacemaker | CPT/HCPCS: 93280 ==

== ENCOUNTER 2020-10-31 10:54 | Outpatient (REF) | payer MEDICARE, SELFPAY ==
[2020-10-31 11:26] LABS: Iron 26 ug/dL (50-170); Total Iron Binding Capacity 348 ug/dL (250-450); Transferrin Sat 7 % (15-50)
[2020-10-31 11:50] LABS: Ferritin 66 ng/mL (8-252); Folate 13.5 ng/mL (8.6-20.0); Vitamin B12 682 pg/mL (193-986)
[2020-10-31 16:11] LABS: Ionized Calcium 1.21 mmol/L (1.12-1.32)
== END 2020-10-31 10:55 | disposition home or self-care (01) ==
LOC: LBN 10:54
PROVIDERS: PCP Nurse Practitioner Family; Visit Provider Internal Medicine Gastroenterology
DX: I50.33 Acute on chronic diastolic (congestive) heart failure (principal); N18.30 Chronic kidney disease, stage 3 unspecified; M1A.00X1 Idiopathic chronic gout, unspecified site, with tophus (tophi); R26.9 Unspecified abnormalities of gait and mobility
CPT/HCPCS: 82330; 82607; 82728; 82746; 83540; 83550

== ENCOUNTER 2020-11-06 16:16 | Outpatient (REF) | payer MEDICARE, SELFPAY ==
[2020-11-06 19:03] LABS: Abs Immature Grans 0.03 10^3/uL (0.0-0.06); Absolute Basophil Count 0.08 10^3/uL (0.0-0.2); Absolute Eosinophil Count 0.57 10^3/uL (0.0-0.7); Absolute Lymphocyte Count 0.72 10^3/uL (1.2-3.4); Absolute Monocyte Count 0.42 10^3/uL (0.1-0.8); Absolute Neutrophil Count 6.79 10^3/uL (1.2-6.7); Basophils % 0.9; Eosinophils % 6.6; HCT 33.1 % (36.0-46.0); HGB 9.5 g/dL (11.2-15.7); Immature Grans % 0.3; Lymphocytes % 8.4; MCH 26.6 pg (27.0-33.0); MCHC 28.7 % (32.0-36.0); MCV 92.7 fL (80-95); MPV 10.1 fL (8.0-11.0); Monocytes % 4.9; Neutrophils % 78.9; Nucleated RBC 0 %; Platelet Count 322 10^3/uL (130-400); RBC 3.57 10^6/uL (3.93-5.22); RDW 22.5 % (11.7-14.6); RDW-SD 75.6 fL; WBC 8.61 10^3/uL (4.4-10.8)
[2020-11-06 19:08] LABS: C-Reactive Protein 0.79 mg/dL (0.0-0.3)
[2020-11-06 19:09] LABS: ESR 98 mm/hr (0-30)
[2020-11-06 19:18] LABS: Anisocytosis 2+; Diff Comment RBC Morph Reviewed; Polychromasia Present
[2020-11-06 19:19] LABS: Poikilocytes 1+
== END 2020-11-06 16:17 | disposition home or self-care (01) ==
LOC: NCHCN 16:16
PROVIDERS: PCP Nurse Practitioner Family; Visit Provider Family Medicine
DX: L08.89 Other specified local infections of the skin and subcutaneous tissue (principal)
CPT/HCPCS: 85652; 85025; 86140

== ENCOUNTER → 2020-11-07 11:21 | Outpatient (BNVA) | payer MEDICARE, SELFPAY | PROVIDERS: PCP Nurse Practitioner Family; Referring Provider Nurse Practitioner Family; Visit Provider Student in an Organized Health Care Education/Training Program | DX: M86.642 Other chronic osteomyelitis, left hand (principal) | CPT/HCPCS: 99213 ==

== ENCOUNTER → 2020-11-18 13:54 | Outpatient (BNVA) | payer MEDICARE, SELFPAY | PROVIDERS: PCP Nurse Practitioner Family; Referring Provider Nurse Practitioner Family; Visit Provider Internal Medicine Cardiovascular Disease | DX: R69 Illness, unspecified (principal) ==

== ENCOUNTER 2020-11-18 14:37 | Emergency (ER) | payer MEDICARE, SELFPAY ==
--- NOTE | 2020-11-18 14:42 | ED.GENADUL_ITS ---
Discharge Plan Disposition Patient Disposition: HOME Condition: Stable Discharge Details Clinical Impression: Left ankle sprain Primary Care Provider: Cara Doll ED Provider: Charis Evans Home Meds and New Rx's Prescriptions: Continued albuterol sulfate [Ventolin HFA] 90 mcg/actuation HFA aerosol inhaler 2 puff IH Q4H PRNRF: 0 polyethylene glycol 3350 17 gram powder in packet 17 g PO DAILY PRNRF: 0 allopurinol 100 mg tablet 200 mg PO BID RF: 0 docusate sodium [Colace] 100 mg capsule 100 mg PO TID PRNRF: 0 lidocaine 5 % cream 1 applic topical BID PRNRF: 0 ferrous gluconate 324 mg (37.5 mg iron) tablet 324 mg PO BID RF: 0 prednisone 5 mg tablet 5 mg PO DAILY RF: 0 metoprolol tartrate 25 MG tablet 25 mg PO BID RF: 0 Eliquis 2.5 MG tablet 2.5 mg PO BID RF: 0 losartan 25 mg tablet 25 mg PO DAILY Qty: 30 RF: 12 isosorbide mononitrate 30 mg tablet extended release 24 hr 30 mg PO DAILY Qty: 90 RF: 3 clonidine HCl 0.1 mg tablet 0.1 mg PO HS RF: 0 theophylline 400 mg Tablet Extended Release 24 Hr 200 mg PO DAILY RF: 0 pantoprazole 40 mg tablet,delayed release (DR/EC) 40 mg PO BID RF: 0 Breo Ellipta 200-25 mcg/dose blister with device 1 inh INHALATION DAILY RF: 0 potassium chloride [Klor-Con M20] 20 mEq Tablet,Er Particles/Crystals 40 meq PO DAILY Qty: 20 RF: 0 torsemide 20 mg tablet 60 mg PO BID RF: 0 acetaminophen 500 mg Tablet 500 mg PO QID PRNRF: 0 Discharge Instructions Instructions: Ankle Sprain (ED) Additional Instructions: Rest, ice, and elevate the affected area as much as possible. Use your cane and wear the ankle brace as much as possible while pain and swelling present. Take Tylenol as needed and directed for pain. Follow-up with orthopedics if your symptoms do not improve or worsen. Return immediately to the emergency department if you develop any worsening or new concerning symptoms. Referrals: Nicko Lemus MD [ [facility] STAFF PHYSICIAN] - Discharge Data Discharge Date/Time-TO BE ENTERED AT DEPARTURE: 11/18/20 15:41 Discharge Physician: Charis Evans Medical Decision Making 85-year-old female presents with left ankle and foot pain after twisting her ankle from standing just over 1 week ago. She has edema and ecchymosis noted to the left lateral malleolus and left dorsal lateral foot. She has neurovascular intact. No deformity. She has chronic changes to her left first and second toe due to previous gout but no evidence of infection. Patient referred for x-rays which noted significant degenerative changes at the first and second toe and the fifth metatarsal but no acute fracture. As patient has been weightbearing on her foot without significant pain, will place an ankle stirrup splint and postop shoe. She has a cane that she has been using for ambulation. Patient also given orthopedic follow-up information if needed. Usual and customary return precautions given prior to discharge. Medical Records Medical records reviewed: Yes I reviewed the patient's medical records. Imaging Data Radiologic Study: Radiologist's impression: XR FOOT AND ANKLE LT COMPLETE CLINICAL HISTORY: s/p fall, r/o acute fx TECHNIQUE: COMPARISON: CR XR FOOT LT COMPLETE from 11/18/2020 CR XR FOOT LT COMPLETE from 11/18/2020 FINDINGS: Three views of the ankle and three views of foot were obtained. There is no evidence of acute fracture. Note is made of destructive process involving the base of the distal phalanx of the great toe and the head of the proximal phalanx of the great toe. Similar findings are seen involving the PIP joint of the 2nd toe. 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 Other etiologies including inflammatory arthritis or gouty arthritis not excluded. Irregularity of the base the 5th metatarsal is also noted with some subchondral cyst formation, nonspecific. No fracture seen involving the 5th metatarsal. IMPRESSION: No acute traumatic fracture identified. Please see above discussion and correlate clinically. HPI General Mode of arrival: wheelchair . Date/Time Provider Initiated Documentation: 11/18/20 14:38 . Limitations to Documentation: no limitations . Information obtained by: patient . HPI Narrative: Patient is an 85-year-old female presents for left ankle pain and swelling after she twisted her ankle upon standing over a week ago. Patient states she was on the phone and sitting when she stood up quickly and feels that she inverted her left ankle. She was at the specialty clinic today for an unrelated complaint and was referred to the ED for further evaluation of her ankle pain and swelling. She states she does not have any more pain and has been ambulating on it. Denies any injury or pain to her hip or knee. She states she initially was using a walker for ambulation but now has been using a cane to prevent full weightbearing on her left Related Data Home Medications Medication Instructions Recorded Confirmed Eliquis 2.5 mg PO BID tab-cap 09/17/16 11/18/20 metoprolol tartrate 25 mg PO BID tab-cap 09/17/16 11/18/20 albuterol sulfate 90 mcg/actuation 2 puff IH Q4H PRN gm 10/30/18 11/18/20 aerosol inhaler polyethylene glycol 3350 17 gram 17 g PO DAILY PRN each 11/27/18 11/18/20 oral powder packet docusate sodium 100 mg capsule 100 mg PO TID PRN cap 06/13/19 11/18/20 theophylline 200 mg PO DAILY 07/17/19 11/18/20 losartan 25 mg tablet 25 mg PO DAILY #30 tab 12/28/19 11/18/20 isosorbide mononitrate 30 mg 30 mg PO DAILY #90 tab 03/10/20 11/18/20 tablet,extended release 24 hr Breo Ellipta 1 inh INHALATION DAILY 03/30/20 11/18/20 potassium chloride [Klor-Con M20] 40 meq PO DAILY #20 tab 04/05/20 11/18/20 acetaminophen 500 mg PO QID PRN 06/15/20 11/18/20 torsemide 60 mg PO BID 06/15/20 11/18/20 clonidine HCl 0.1 mg PO HS 06/16/20 11/18/20 lidocaine 5 % topical cream 1 applic TOPICAL BID PRN 06/18/20 11/18/20 allopurinol 100 mg tablet 200 mg PO BID tab 10/29/20 11/18/20 pantoprazole 40 mg tablet,delayed 40 mg PO BID tab 10/29/20 11/18/20 release ferrous gluconate 324 mg (37.5 mg 324 mg PO BID tab 11/18/20 11/18/20 iron) tablet prednisone 5 mg tablet 5 mg PO DAILY tab 11/18/20 11/18/20 Previous Rx's Medication Instructions Recorded losartan 25 mg tablet 25 mg PO DAILY #30 tab 12/28/19 isosorbide mononitrate 30 mg 30 mg PO DAILY #90 tab 03/10/20 tablet,extended release 24 hr potassium chloride [Klor-Con M20] 40 meq PO DAILY #20 tab 04/05/20 Allergies Allergy/AdvReac Type Severity Reaction Status Date / Time adhesive Allergy Verified 11/18/20 14:50 egg Allergy Verified 11/18/20 14:50 gluten Allergy Verified 11/18/20 14:50 Influenza Virus Vaccines Allergy Verified 11/18/20 14:50 pork derived (porcine) Allergy Verified 11/18/20 14:50 warfarin [From Coumadin] Allergy Verified 11/18/20 14:50 dapsone AdvReac dizziness, Verified 11/18/20 14:50 headache, nausea dairy Allergy Uncoded 11/18/20 14:50 tape Allergy Uncoded 11/18/20 14:50 General WESLEY: 3 Review of Systems All systems reviewed & are unremarkable except as noted in HPI and below PFSH Medical History Asthma Asthma Atrial fibrillation Bullous pemphigoid CHF (congestive heart failure) Chronic kidney disease CKD (chronic kidney disease) COPD (chronic obstructive pulmonary disease) Depression DNI (do not intubate) DNR (do not resuscitate) Falls Gout HTN (hypertension) Hypercalcemia Hypertension MRSA cellulitis PAF (paroxysmal atrial fibrillation) Palliative care patient POLST (Physician Orders for Life-Sustaining Treatment) Presence of permanent cardiac pacemaker Pulmonary hypertension Surgical History AICD (automatic cardioverter/defibrillator) present H/O thoracic aortic aneurysm repair History of thoracic aortic aneurysm repair Pacemaker Social History Smoking/Tobacco Use Status: Never Smoking risk assessment performed?: Yes Alcohol Intake: never Substance use type: does not use Household members: other Details: lives with daughter Orly Keller What type of physical activity do you participate in: none Do you feel safe at home: Yes Do you feel safe in your relationship?: Yes Exam Const General: cooperative and no acute distress HENMT Head: normal to inspection Mouth: oral mucosae normal Eyes General: appearance normal, both eyes and all related structures Neck Neck: normal visual inspection Resp Effort & Inspection: normal respiratory effort and able to speak in complete sentences Cardio Rate: regular rate Skin General skin exam: no rashes or lesions noted Neuro General: patient alert, patient awake and patient oriented x3 Motor: muscle tone normal throughout Extrem Ankle/foot/toe images: 1. Moderate edema and ecchymosis noted to left lateral malleolus and left lateral dorsal foot. There is tenderness to palpation to left anterior lateral malleolus and left fifth metatarsal. Other: L PT/DP pulses intact. No deformity noted. No tenderness to palpation to left knee. Psych Appearance: grossly normal Affect: normal affect
[2020-11-18 14:43] VITALS: BP 129/59; PULSE 78; RESP 18; TEMP 36.5; O2SAT 100
--- NOTE | 2020-11-18 14:45 | DI.RAD_ITS ---
Exam(s) XR FOOT LT COMPLETE XR ANKLE LT COMPLETE EXAM: XR ANKLE LT COMPLETE CLINICAL HISTORY: s/p fall, r/o acute fx TECHNIQUE: COMPARISON: CR XR FOOT LT COMPLETE from 11/18/2020 CR XR FOOT LT COMPLETE from 11/18/2020 FINDINGS: Three views of the ankle and three views of foot were obtained. There is no evidence of acute fractu re. Note is made of destructive process involving the base of the distal phalanx of the great toe and the head of the proximal phalanx of the great toe. Similar findings are seen involving the PIP joint of the 2nd toe. Patient reportedly has parathyroid hormone abnormalities and possible chronic renal fa ilure, the findings may represent renal osteodystrophy with pathologic fractures. Other etiologies i ncluding inflammatory arthritis or gouty arthritis not excluded. Irregularity of the base the 5th me tatarsal is also noted with some subchondral cyst formation, nonspecific. No fracture seen involving the 5th metatarsal. IMPRESSION: No acute traumatic fracture identified. Please see above discussion and correlate clinically. RADIATION DOSE DELIVERED: Total DLP
[2020-11-18 15:46] VITALS: BP 129/59; PULSE 78; RESP 18; TEMP 36.5; O2SAT 100
== END 2020-11-18 15:41 | disposition home or self-care (01) ==
PROVIDERS: Emergency Provider Physician Assistant; PCP Nurse Practitioner Family
DX: S93.492A Sprain of other ligament of left ankle, initial encounter (principal); X50.1XXA Overexertion from prolonged static or awkward postures, initial encounter
CPT/HCPCS: 99214; 99284; 73610; 73630; 99283

== ENCOUNTER 2020-11-25 11:51 | Day surgery (SDC) | payer MEDICARE, SELFPAY ==
[2020-11-25 12:11] VITALS: BP 115/44; PULSE 66; RESP 16; TEMP 37; O2SAT 98
--- NOTE | 2020-11-25 12:49 | W.PM.DSUDISC ---
Discharge Plan Disposition Patient Disposition: HOME Condition: Good Discharge Details Reason For Visit: Left middle finger amputation Attending Provider: Nicko Lemus Primary Care Provider: Cara Doll Home Meds and New Rx's Prescriptions: New hydrocodone-acetaminophen 5-325 mg tablet 1 tab PO Q6H PRNQty: 8 RF: 0 acetaminophen [Tylenol Extra Strength] 500 mg tablet 500 mg PO Q6H PRNQty: 30 RF: 0 Continued albuterol sulfate [Ventolin HFA] 90 mcg/actuation HFA aerosol inhaler 2 puff IH Q4H PRNRF: 0 polyethylene glycol 3350 17 gram powder in packet 17 g PO DAILY PRNRF: 0 allopurinol 100 mg tablet 200 mg PO BID RF: 0 docusate sodium [Colace] 100 mg capsule 100 mg PO TID PRNRF: 0 lidocaine 5 % cream 1 applic topical BID PRNRF: 0 ferrous gluconate 324 mg (37.5 mg iron) tablet 324 mg PO BID RF: 0 prednisone 5 mg tablet 5 mg PO DAILY RF: 0 metoprolol tartrate 25 MG tablet 25 mg PO BID RF: 0 Eliquis 2.5 MG tablet 2.5 mg PO BID RF: 0 losartan 25 mg tablet 25 mg PO DAILY Qty: 30 RF: 12 isosorbide mononitrate 30 mg tablet extended release 24 hr 30 mg PO DAILY Qty: 90 RF: 3 clonidine HCl 0.1 mg tablet 0.1 mg PO HS RF: 0 theophylline 400 mg Tablet Extended Release 24 Hr 200 mg PO DAILY RF: 0 pantoprazole 40 mg tablet,delayed release (DR/EC) 40 mg PO BID RF: 0 Breo Ellipta 200-25 mcg/dose blister with device 1 inh INHALATION DAILY RF: 0 potassium chloride [Klor-Con M20] 20 mEq Tablet,Er Particles/Crystals 40 meq PO DAILY Qty: 20 RF: 0 torsemide 20 mg tablet 60 mg PO BID RF: 0 acetaminophen 500 mg Tablet 500 mg PO QID PRNRF: 0 Discharge Instructions Additional Instructions: Discharge Instructions Activity: You should keep the hand/fingers elevated as much as possible for the first few days. You may use the other fingers as tolerated but avoid trying to do too much too soon. You may perform light activities with the splint in place. Dressing: Your splint should stay in place at all times. Do NOT get it wet. You may loosen the YOBANY wrap if you feel it is too tight and then rewrap more loosely. Medications: - You should take Tylenol and Ibuprofen for baseline pain control. - You have hydrocodone for breakthrough pain. - You may apply ice over the middle finger. Follow-up: 10-14 days Referrals: Nicko Lemus MD [ [facility]YS[facility]IAN] - Activity:: Activity as Tolerated Remove Dressings/Wound Care:: 72 hours Shower/Bathe:: 72 hours Diet:: As Tolerated Discharge Orders Discharge Orders: Discharge Order (Routine); Ordered 11/25/20 Ordered By: Kelly Stoll DS: Diagnosis Discharge Diagnosis (1) Chronic osteomyelitis of left hand including fingers: Status: Acute (2) Cellulitis of left middle finger: Status: Acute
[2020-11-25] MEDS: Lactated Ringers 1,000 ML 80 ML IV (14:00)
[2020-11-25] MEDS: ceFAZolin 1 GM/50 ML BAG IVPB (14:05)
--- NOTE | 2020-11-25 14:30 | AMP_PTH ---
PATIENT: Antonia Win LOC: [facility] U#:[id number] AGE/SX: 85/F ROOM: RE11/25/[address]: Nicko Lemus MD : [id number] BED: DIS: 11/25/2020 SPEC #: [id number] RECD: 11/25/20 18:45 STATUS: FELICIA REQ #: [id number] ELBA: 11/25/20 14:[address]: Nicko Lemus DEPT: Surgical Specimen RECD BY: Teresita Maldonado ENTERED: 11/25/20 18:47 SP TYPE: Amputation OTHR DR: Cara Doll Tissues: 1 - AMPUTATION FINGERS/TOES(NOT TRAUMA) Procedures: GROSS AND MICRO LEVEL 4 DECALCIFICATION Comments:
[2020-11-25] MEDS: Bupivacaine 0.25% Pres-Free 30 ML VIAL (14:36)
[2020-11-25] MEDS: Lidocaine 1% Multi-Dose 50 ML VIAL (14:36)
[2020-11-25 14:55] VITALS: BP 138/64; PULSE 61; RESP 18; TEMP 36.6; O2SAT 98
--- NOTE | 2020-11-25 22:49 | W.PM.OP ---
Date of service: 11/25/20 Time of Service: 15:17 Operative Note Operative Note DATE OF PROCEDURE: 11/25/20 PRE-OP DIAGNOSIS: Destructive lesion of the left middle finger distal phalanx POST-OP DIAGNOSIS: same PROCEDURE: Left middle finger amputation through DIP joint SURGEON: Nicko Lemus SEASON[employer] CUSTOMER SERVICE ASSOCIATE: Kelly Stoll ANESTHESIA TYPE: Local By Surgeon Refer to Anesthesia Record ESTIMATED BLOOD LOSS: 5 PATHOLOGY: other (The distal finger was sent to the lab for evaluation of this destructive lesion, question gout versus infection) COMPLICATIONS: None Patient was transported to: same day Patient's condition: stable Indications: Antonia is an 85-year-old who has seen previously in the clinic for swelling and pain about the left middle finger. X-ray showed a destructive lesion of the distal phalanx. She did have a history of gout but did not have exudative gouty processes or tophi. The concern was for infection. Given the destruction of the distal phalanx and her continued pain and symptoms and no clear diagnosis, I recommended a distal middle finger amputation. I reviewed this with her and her daughter. They agreed to proceed. I reviewed the risk of the procedure to include bleeding, infection, pain, stiffness, need for repeat procedures or further amputation, skin healing difficulties, pain at the amputation site, finger contracture. Despite these risk, she elected to proceed. Findings: There is no appreciable distal phalanx bone. There was a white chalky material seen embedded in the distal aspect of the middle phalanx as well as in the soft tissues which did seem to be reminiscent of gouty crystals. The finger was amputated to the DIP joint with contouring of the head of the middle phalanx. Procedure Description: Antonia was greeted in the preoperative holding area. Her identity was confirmed the correct side was identified and marked. The consent was reviewed the patient and signed. The history of physical is updated she was taken to the operating room and placed into the supine position. The left hand was placed on a hand table. All bony promises well-padded. Prophylactic antibiotics were administered given the nature of this injury and surgery. A timeout was performed for safe surgery. A digital block was administered utilizing 1% lidocaine along with 0.5% bupivacaine buffered with sodium bicarbonate. Once the digital block had set up surgery began. The initial incision was taken from the extensor creases of the DIP joint and extended distally as it wrapped palmarly to create a palmar-based flap. This tissue was incised sharply and then the finger was removed without difficulty. There is no notable bone in the distal phalanx. The digital nerves were identified and pulled and sharply divided. The arteries were coagulated with bipolar cautery. There is notable white deposits within the soft tissues and in the bone of the head of the middle phalanx. This did appear to be gouty in nature. However, there were not true tophi. This was removed with sharp dissection. The head of the middle phalanx was also contoured with the use of a rongeur. Aggressive irrigation was performed. There is no purulent material. There is no sign of chronic infection. I then used a #2-0 Vicryl to reapproximate some of the pulp of the palmar distal finger to the deeper tissue on the dorsal surface. I then used a 4-0 nylon to close the wound with no tension. There is no significant bleeding. The finger was wrapped with Xeroform, 4 x 4's and tube gauze dressing. She is transfer back to the day surgery area in stable condition suffering no complications. The end of the finger was sent a pathology in formalin for evaluation of infection versus gout or other reason for destructive lesion of the middle finger.
== END 2020-11-25 15:40 | disposition home or self-care (01) ==
PROVIDERS: PCP Nurse Practitioner Family; Visit Provider Student in an Organized Health Care Education/Training Program
PROC: (CPT 26951; principal; 2020-11-25 13:45)
DX: M10.9 Gout, unspecified (principal); L03.012 Cellulitis of left finger
CPT/HCPCS: 26951; 88300; 88305; 88311; J0690

== ENCOUNTER → 2020-12-05 11:07 | Outpatient (BNVA) | payer MEDICARE, SELFPAY | PROVIDERS: PCP Nurse Practitioner Family; Referring Provider Nurse Practitioner Family; Visit Provider Student in an Organized Health Care Education/Training Program | DX: Z47.89 Encounter for other orthopedic aftercare (principal); M86.642 Other chronic osteomyelitis, left hand ==

== ENCOUNTER 2020-12-16 14:50 | Outpatient (REF) | payer MEDICARE, SELFPAY ==
[2020-12-17 17:10] LABS: Rheumatoid Factor <8.6 IU/mL (<12.0)
[2020-12-18 10:21] LABS: Cyclic Citrullinated Peptide <2.5 U/mL (<5.0)
[2020-12-18 15:15] LABS: ANA Interpretation Positive (Negative)
[2020-12-18 18:49] LABS: Cedar, IgE <0.35 kU/L; Dog Dander IgE <0.35 kU/L; Douglas Fir, IgE <0.35 kU/L
[2020-12-19 08:41] LABS: IgE 25 IU/mL (<158)
[2021-01-05 12:26] LABS: Misc Referral (MAYO) See Comments
== END 2020-12-16 14:51 | disposition home or self-care (01) ==
LOC: LBN 14:50
PROVIDERS: PCP Nurse Practitioner Family; Visit Provider Student in an Organized Health Care Education/Training Program
DX: J84.10 Pulmonary fibrosis, unspecified (principal)
CPT/HCPCS: 83516; 86200; 86235; 82785; 86003; 86038; 86431

== ENCOUNTER 2020-12-19 08:36 | Outpatient (CLI) | payer MEDICARE, SELFPAY | END 2020-12-19 08:37 | disposition home or self-care (01) | LOC: RT 08:38 | PROVIDERS: PCP Nurse Practitioner Family; Visit Provider Student in an Organized Health Care Education/Training Program | DX: R69 Illness, unspecified (principal) ==

== ENCOUNTER 2020-12-22 08:12 | Outpatient (CLI) | payer MEDICARE, SELFPAY ==
[2020-12-22] MEDS: Albuterol HFA 18 GM 200 PUFF INH IH (11:17)
[2020-12-22] MEDS: Inhaler, Assist Device 1 EACH MC (11:17)
--- NOTE | 2020-12-23 12:28 | W.PFT ---
Date of service: 12/22/20 Time of Service: 10:03 Pulmonary Function Test Result Interpretation Spirometry: There is no airflow limitation. There is no significant bronchodilator late effect. There is a restrictive pattern which could represent restrictive lung disease or inadequate effort. Lung Volumes: There is mild restriction. Diffusion Capacity: The diffusion is reduced. Airway Pressure: There is normal airways resistance. Impression Taken together the pulmonary function tests are significant for mild restrictive lung disease. Clinical Correlation is recommended.
== END 2020-12-22 08:13 | disposition home or self-care (01) ==
LOC: RT 08:32
PROVIDERS: PCP Nurse Practitioner Family; Visit Provider Student in an Organized Health Care Education/Training Program
DX: J84.10 Pulmonary fibrosis, unspecified (principal); J45.909 Unspecified asthma, uncomplicated
CPT/HCPCS: 94060; 94726; 94729

== ENCOUNTER 2020-12-25 03:27 | Outpatient (CLI) | payer MEDICARE, SELFPAY ==
--- NOTE | 2020-12-25 08:00 | DI.CT_ITS ---
Exam(s) CT CHEST HIGH RESOLUTION EXAM: CT CHEST HIGH RESOLUTION CLINICAL HISTORY: Concern for ILD - fibrosis on CXR, dyspnea,J84.10. TECHNIQUE: Multi planar reconstructions were performed. CONTRAST MATERIAL: None COMPARISON: CT CT CHEST WO from 09/06/2018 FINDINGS: CHEST: LUNGS: There is decreased right hemithoracic volume noted. The previously present extensive ground-g lass infiltrate throughout the entire right lung seen on August 2018 have resolved but there are now s ome remaining patchy infiltrates throughout all lobes of the right lung. No associated pleural effus ion. The opposite-left lung is relatively clear with the exception of infiltrate in the posterior basal se gment of the left lower lobe, not associated with pleural effusion. There are no focal findings in the trachea and mainstem bronchi. MEDIASTINUM: No obvious hilar nor mediastinal adenopathy. No subcarinal adenopathy. No significant axillary adenopathy. Visualized thyroid unremarkable.No obvious axillary adenopathy CARDIAC: There is cardiomegaly again noted. Sternotomy wires. Pacemaker wires. Coronary artery francis cification. No pericardial effusion.. Diameter of the ascending thoracic aorta is 4 cm. VISUALIZED UPPER ABDOMEN:No adrenal masses. OSSEOUS: No significant osseous lesions.. IMPRESSION: 1. Compared to August 2018 the extensive ground-glass infiltrates throughout the right lung are no mamie michelle seen but there is patchy remaining infiltrate in the right lung as well as in the posterior basal segment of the left lung-left lower lobe. No pleural effusions on either side. 2. No intrathoracic adenopathy. 3. Cardiomegaly. Sternotomy. Pacemaker wires. 4 cm diameter ascending thoracic aorta. RADIATION DOSE DELIVERED: 335.97mGy.cm Total DLP DATA REPOSITORY: All CT scans at this facility are submitted to the National Radiology Data Registry (NRDR) Dose Index Registry (DIR) with the [employer] (A[employer]). RADIATION OPTIMIZATION: All CT scans at this facility use at least one of these dose optimization te chniques: automated exposure control; mA and/or kV adjustment per patient size (includes targeted exa ms where dose is matched to clinical indication); or iterative reconstruction.
== END 2020-12-25 03:47 ==
PROVIDERS: PCP Nurse Practitioner Family; Visit Provider Student in an Organized Health Care Education/Training Program
DX: J84.10 Pulmonary fibrosis, unspecified (principal); I51.7 Cardiomegaly; R91.8 Other nonspecific abnormal finding of lung field; Z95.0 Presence of cardiac pacemaker
CPT/HCPCS: 71250

== ENCOUNTER 2020-12-30 16:13 | Outpatient (REF) | payer MEDICARE, SELFPAY ==
[2021-01-01 11:50] LABS: dsDNA Ab, IgG 17.2 IU/mL (<30.0)
== END 2020-12-30 16:14 | disposition home or self-care (01) ==
LOC: LBN 16:13
PROVIDERS: PCP Nurse Practitioner Family; Visit Provider Student in an Organized Health Care Education/Training Program
DX: I50.33 Acute on chronic diastolic (congestive) heart failure (principal); I13.0 Hypertensive heart and chronic kidney disease with heart failure and stage 1 through stage 4 chronic kidney disease, or unspecified chronic kidney disease; J84.10 Pulmonary fibrosis, unspecified
CPT/HCPCS: 86225

== ENCOUNTER → 2021-01-05 15:11 | Outpatient (BNVA) | payer MEDICARE, SELFPAY | PROVIDERS: PCP Nurse Practitioner Family; Visit Provider Student in an Organized Health Care Education/Training Program | DX: Z47.89 Encounter for other orthopedic aftercare (principal); M86.642 Other chronic osteomyelitis, left hand ==

== ENCOUNTER → 2021-02-03 12:48 | Outpatient (BNVA) | payer MEDICARE, SELFPAY | PROVIDERS: PCP Nurse Practitioner Family; Visit Provider Internal Medicine Cardiovascular Disease | DX: I50.32 Chronic diastolic (congestive) heart failure (principal); I48.0 Paroxysmal atrial fibrillation; Z95.0 Presence of cardiac pacemaker; I13.0 Hypertensive heart and chronic kidney disease with heart failure and stage 1 through stage 4 chronic kidney disease, or unspecified chronic kidney disease; N18.4 Chronic kidney disease, stage 4 (severe) | CPT/HCPCS: 99214 ==

== ENCOUNTER 2021-04-20 18:08 | Outpatient (REF) | payer MEDICARE, SELFPAY ==
[2021-04-20 19:34] LABS: Abs Immature Grans 0.05 10^3/uL (0.0-0.06); Absolute Eosinophil Count 1.92 10^3/uL (0.0-0.7); Absolute Lymphocyte Count 1.25 10^3/uL (1.2-3.4); Absolute Neutrophil Count 8.33 10^3/uL (1.2-6.7); Basophils % 0.7; Eosinophils % 15.6; HGB 10.8 g/dL (11.2-15.7); Immature Grans % 0.4; Lymphocytes % 10.2; MCH 30.3 pg (27.0-33.0); MCV 100.8 fL (80-95); MPV 9.6 fL (8.0-11.0); Monocytes % 5.4; Neutrophils % 67.7; Nucleated RBC 0 %; Platelet Count 296 10^3/uL (130-400); RBC 3.57 10^6/uL (3.93-5.22); RDW 15.6 % (11.7-14.6); RDW-SD 57.6 fL
[2021-04-20 19:42] LABS: Anion Gap 8.4 mmol/L (3-11); BUN 49 mg/dL (7-18); CO2 28.6 mmol/L (21.0-32.0); CREATININE 1.8 mg/dL (0.55-1.02); Calcium 10.3 mg/dL (8.5-10.1); Chloride 104 mmol/L (98-107); Estimated GFR 26.74 (mL/min/1.73m2); Glucose 108 mg/dL (74-106); Potassium 4.2 mmol/L (3.5-5.1); Sodium 141 mmol/L (136-145)
[2021-04-20 19:51] LABS: Absolute Basophil Count 0.09 10^3/uL (0.0-0.2); Absolute Monocyte Count 0.66 10^3/uL (0.1-0.8)
== END 2021-04-20 18:09 | disposition home or self-care (01) ==
LOC: NCHCN 18:08
PROVIDERS: PCP Nurse Practitioner Family; Visit Provider Nurse Practitioner Family
DX: D64.9 Anemia, unspecified (principal); I10 Essential (primary) hypertension
CPT/HCPCS: 80048; 85025

== ENCOUNTER 2021-05-11 18:04 | Outpatient (REF) | payer MEDICARE, SELFPAY ==
[2021-05-11 20:51] LABS: Iron 63 ug/dL (50-170); Total Iron Binding Capacity 252 ug/dL (250-450); Transferrin Sat 25 % (15-50)
[2021-05-11 21:02] LABS: Ferritin 109 ng/mL (8-252)
== END 2021-05-11 18:05 | disposition home or self-care (01) ==
LOC: NCHCN 18:04
PROVIDERS: PCP Nurse Practitioner Family; Visit Provider Nurse Practitioner Family
DX: D64.9 Anemia, unspecified (principal)
CPT/HCPCS: 82728; 83540; 83550

== ENCOUNTER → 2021-05-19 12:58 | Outpatient (BNVA) | payer MEDICARE, SELFPAY | PROVIDERS: PCP Nurse Practitioner Family; Visit Provider Internal Medicine Cardiovascular Disease | DX: I48.91 Unspecified atrial fibrillation (principal); N18.4 Chronic kidney disease, stage 4 (severe); I50.33 Acute on chronic diastolic (congestive) heart failure; Z95.0 Presence of cardiac pacemaker; Z79.01 Long term (current) use of anticoagulants | CPT/HCPCS: 99214 ==

== ENCOUNTER → 2021-07-01 12:47 | Outpatient (BNVA) | payer MEDICARE, SELFPAY | PROVIDERS: PCP Nurse Practitioner Family; Visit Provider Internal Medicine Cardiovascular Disease | DX: R09.89 Other specified symptoms and signs involving the circulatory and respiratory systems (principal); Z45.018 Encounter for adjustment and management of other part of cardiac pacemaker; Z79.01 Long term (current) use of anticoagulants | CPT/HCPCS: 93280 ==

== ENCOUNTER 2021-07-24 19:07 | Outpatient (REF) | payer MEDICARE, SELFPAY ==
[2021-07-24 19:48] LABS: HCT 36.6 % (36.0-46.0); HGB 10.8 g/dL (11.2-15.7); MCH 30.3 pg (27.0-33.0); MCHC 29.5 % (32.0-36.0); MCV 102.5 fL (80-95); MPV 10.2 fL (8.0-11.0); Platelet Count 290 10^3/uL (130-400); RBC 3.57 10^6/uL (3.93-5.22); RDW 14.6 % (11.7-14.6); RDW-SD 54.8 fL; WBC 11.44 10^3/uL (4.4-10.8)
[2021-07-24 20:01] LABS: ALT 11 U/L (14-59); AST 15 U/L (15-37); Albumin 3.3 g/dL (3.4-5.0); Alkaline Phosphatase 121 U/L (46-116); Anion Gap 8.9 mmol/L (3-11); BUN 45 mg/dL (7-18); Bilirubin, Total 0.3 mg/dL (0.2-1.0); CO2 30.1 mmol/L (21.0-32.0); CREATININE 1.7 mg/dL (0.55-1.02); Chloride 101 mmol/L (98-107); Estimated GFR 28.56 (mL/min/1.73m2); Folate 11.4 ng/mL (8.6-20.0); Glucose 77 mg/dL (74-106); Potassium 4.2 mmol/L (3.5-5.1); Sodium 140 mmol/L (136-145); TSH (W/Ref FT4) 3.59 uIU/mL (0.36-3.74); Total Protein 6.9 g/dL (6.4-8.2); Vitamin B12 569 pg/mL (193-986)
== END 2021-07-24 19:08 | disposition home or self-care (01) ==
LOC: NCHCN 19:07
PROVIDERS: PCP Nurse Practitioner Family; Visit Provider Nurse Practitioner Family
DX: R19.7 Diarrhea, unspecified (principal); R32 Unspecified urinary incontinence
CPT/HCPCS: 80053; 85027; 82607; 82746; 84443; 87086; 87186

== ENCOUNTER 2021-07-27 14:51 | Outpatient (REF) | payer MEDICARE, SELFPAY ==
[2021-07-28 11:59] LABS: Campylobacter PCR Negative (Negative); Salmonella PCR Negative (Negative); Shiga Toxin PCR Negative (Negative); Shigella/Enteroinvasive Ecoli Negative (Negative)
== END 2021-07-27 14:52 | disposition home or self-care (01) ==
LOC: NCHCN 14:51
PROVIDERS: PCP Nurse Practitioner Family; Visit Provider Nurse Practitioner Family
DX: R19.7 Diarrhea, unspecified (principal); R19.5 Other fecal abnormalities
CPT/HCPCS: 87493; 87505; 83630; 87177

== ENCOUNTER → 2021-09-15 13:07 | Outpatient (BNVA) | payer MEDICARE, SELFPAY | PROVIDERS: PCP Nurse Practitioner Family; Visit Provider Internal Medicine Cardiovascular Disease | DX: I50.32 Chronic diastolic (congestive) heart failure (principal); Z95.0 Presence of cardiac pacemaker; I10 Essential (primary) hypertension; I48.0 Paroxysmal atrial fibrillation | CPT/HCPCS: 99214; 99213 ==

== ENCOUNTER 2021-10-15 09:52 | Outpatient (REF) | payer MEDICARE, SELFPAY ==
[2021-10-15 15:21] LABS: HCT 39.5 % (36.0-46.0); HGB 11.6 g/dL (11.2-15.7); MCH 30.4 pg (27.0-33.0); MCHC 29.4 % (32.0-36.0); MCV 104 fL (80-95); MPV 9.7 fL (8.0-11.0); Platelet Count 292 10^3/uL (130-400); RBC 3.81 10^6/uL (3.93-5.22); RDW 14.9 % (11.7-14.6); WBC 11.45 10^3/uL (4.4-10.8)
[2021-10-15 15:46] LABS: Anion Gap 6.6 mmol/L (3-11); BUN 27 mg/dL (7-18); CO2 29.4 mmol/L (21.0-32.0); CREATININE 1.4 mg/dL (0.55-1.02); Calcium 10.1 mg/dL (8.5-10.1); Chloride 101 mmol/L (98-107); Estimated GFR 35.74 (mL/min/1.73m2); Glucose 94 mg/dL (74-106); Magnesium 1.9 mg/dL (1.8-2.4); Potassium 3.4 mmol/L (3.5-5.1); Sodium 137 mmol/L (136-145); Uric Acid 4.6 mg/dL (2.6-6.0)
== END 2021-10-15 09:53 | disposition home or self-care (01) ==
LOC: NCHCN 09:52
PROVIDERS: PCP Nurse Practitioner Family; Visit Provider Nurse Practitioner Family
DX: N18.4 Chronic kidney disease, stage 4 (severe) (principal); R19.7 Diarrhea, unspecified; E79.0 Hyperuricemia without signs of inflammatory arthritis and tophaceous disease; I10 Essential (primary) hypertension
CPT/HCPCS: 80048; 85027; 83735; 84550

== ENCOUNTER 2021-12-17 06:10 | Observation (INO) | payer MEDICARE, SELFPAY ==
[2021-12-17] VITALS (45 sets, daily range): BP systolic 97–144; BP diastolic 46–89; PULSE 76–167; RESP 16–30; TEMP 31–38.7; O2SAT 92–100
--- NOTE | 2021-12-17 06:45 | DI.RAD_ITS ---
Exam(s) XR PORTABLE CHEST AP EXAM: XR PORTABLE CHEST AP CLINICAL HISTORY: cough, SOB. TECHNIQUE: 2D digital imaging was performed. COMPARISON: CR XR CHEST 2V PA LATERAL from 03/17/2020 CR XR CHEST 2V PA LATERAL from 03/28/2020 CR XR PORTABLE CHEST AP from 04/01/2020 CR,XR XR PORTABLE CHEST AP from 06/15/[address] CHEST HIGH RESOLUTION from 12/25/2020 FINDINGS: Single AP portable view. Again noted is cardiomegaly, sternotomy wires, and bipolar left subclavian pacemaker with lead tips i n are in RV, unchanged. Interstitial disease again noted throughout both lung butler, left side similar to May 2020. Rig ht-side slightly progressed. Both interstitial and some patchy confluent infiltrate in the right ag g. Mild blunting of the right costophrenic angle noted may indicate small amount of right pleural fl uid. IMPRESSION: Increasing patchy infiltrate in the right lung, superimposed upon chronic interstitial pattern bilate rally evident since at least February 2020 chest x-ray. Most probably an element of chronic interstit ial fibrosis and some superimposed right-side infiltrates. Findings were also evident on chest CT scan performed 12/25/2020. Also noted to be worse on right si de when compared to the left side at that time. DATA REPOSITORY: RADIATION DOSE DELIVERED: All CT scans at this facility use at least one of these dose optimization techniques: automated exposure control; mA and/or kV adjustment per patient size (includes targeted e xams where dose is matched to clinical indication); or iterative reconstruction.
--- NOTE | 2021-12-17 06:45 | RT.EKG_ITS ---
APPROVED REPORT Exam: Resting ECG Reason for Exam: arrhythmia Patient Location: E HR:121 bpm ECG Measurements Heart Rate 121 AXIS NE [id number] P [id number] QRSd 128 QRS 2 QT 357 T 86 QTc 507 Conclusion Atrial fibrillation...V-rate 94-156, irreg A-activity Left bundle branch block...QRSd>120, broad/notched R ST elevation secondary to IVCD...Multiple VCG criteria I have reviewed and interpreted ECG and agree with software generated interpretation.
--- NOTE | 2021-12-17 06:50 | ED.GENADUL_ITS ---
Discharge Plan Disposition Patient Disposition: [facility] INPATIENT Condition: Stable Discharge Details Clinical Impression: CKD (chronic kidney disease), PAF (paroxysmal atrial fibrillation), COVID, Pneumonia Admit Date/Time: 12/17/21 09:16 Admit Provider: Simone Wade Attending Provider: Simone Wade Primary Care Provider: Cara Doll ED Provider: Matthieu Rosa Discharge Data Discharge Date/Time-TO BE ENTERED AT DEPARTURE: 12/17/21 15:44 Medical Decision Making <Memo Velez MD - Last Filed: 12/18/21 15:19> Patient presenting with 1 week history of increasing weakness, decreased oral intake, shortness of breath who has subsequently tested positive for COVID today despite 3 negative test over the course of the week prior. Patient is in rapid A. fib at this point. She is a little tachypneic but her room air saturations are 93 to 94%. Per the daughter the right lung always sounds worse than left. Today significant rhonchi and wheezing on the right. IV established and laboratory studies sent. Portable chest x-ray and fluid swab ordered. Fluid bolus of 500 mL ordered, patient with history of CHF and CKD she will need to be judicious with fluids. Confirmed with patient and daughter DNR/DNI status. Medical Records Medical records reviewed: Yes I reviewed the patient's medical records. ECG Data Attestation: I personally reviewed and interpreted this ECG (s) as follows: Prior ECG tracings: available for review Interpretation: see EKG <Matthieu Rosa MD - Last Filed: 12/17/21 09:30> Patient presenting with 1 week history of increasing weakness, decreased oral intake, shortness of breath who has subsequently tested positive for COVID today despite 3 negative test over the course of the week prior. Patient is in rapid A. fib at this point. She is a little tachypneic but her room air saturations are 93 to 94%. Per the daughter the right lung always sounds worse than left. Today significant rhonchi and wheezing on the right. IV established and laboratory studies sent. Portable chest x-ray and fluid swab ordered. Fluid bolus of 500 mL ordered, patient with history of CHF and CKD she will need to be judicious with fluids. Confirmed with patient and daughter DNR/DNI status. pt signed out to me pending labs and imaging, imaging shows possible left infiltrate, cbc with wbc of 11 and has mild regi. She has a minimally elevated troponin to 80 and denies any chest pain, suspect this is from being in afib with rvr and hasnt taken metoprolol today and unclear when she last took it. I ordered oral metoprolol and IV and her heart rate is now 90-100. She is positive for covid, not requiring oxygen. She feels too weak to go home which is likely from covid and also pneumonia. She is not requiring oxygen so feel she is a candidate for monoclonal antibodies, gfr too low for paxlovid. Will discuss with hospitalist about admission HPI <Memo Velez MD - Last Filed: 12/18/21 15:19> General Mode of arrival: wheelchair . Date/Time Provider Initiated Documentation: 12/17/21 06:49 . Limitations to Documentation: no limitations . Information obtained by: patient, family, RN notes reviewed and old records reviewed . HPI Narrative: Patient presents to ED with generalized weakness, shortness of breath, not feeling well. Patient began having symptoms just about 1 week ago. She tested negative for COVID last week at home. She was seen by primary care Tuesday and Tuesday with negative COVID testing. Patient daughter whom she lives with tested positive yesterday. This morning patient continued to feel worse and at this point a home COVID test came back positive. No reported fever. She has had decreased oral intake though is trying to keep up with fluids by drinking water. There is been no vomiting or diarrhea. Patient denies chest pain. She does have some abdominal pain though cannot localize it. She feels more short of breath than usual. She does have history of COPD and pulmonary fibrosis apparently affecting the right lung more so than the left. She has had her COVID series including her fourth booster. She has not been able to get out of bed over the last few days. Daughter brought her into ED this morning. Related Data Home Medications Medication Instructions Recorded Confirmed apixaban 2.5 mg tablet (Eliquis) 2.5 mg PO BID 09/17/16 12/17/21 metoprolol tartrate 25 mg tablet 25 mg PO BID 09/17/16 12/17/21 albuterol sulfate 90 mcg/actuation 2 puff inhalation Q4H PRN 10/30/18 12/17/21 aerosol inhaler (Ventolin HFA) acetaminophen 500 mg tablet 500 mg PO QID PRN 06/15/20 12/17/21 clonidine HCl 0.1 mg tablet 0.1 mg PO HS 06/16/20 12/17/21 lidocaine 5 % topical cream 1 applic topical BID PRN 06/18/20 12/17/21 allopurinol 100 mg tablet 200 mg PO BID 10/29/20 12/17/21 pantoprazole 40 mg tablet,delayed 40 mg PO BID 10/29/20 12/17/21 release ferrous gluconate 324 mg (37.5 mg 324 mg PO BID 11/18/20 12/17/21 iron) tablet theophylline 400 mg 200 mg PO DAILY #45 tabs 12/16/20 12/17/21 tablet,extended release 24 hr budesonide 160 mcg-glycopyr 9 2 inh inhalation BID #10.7 grams 03/18/21 12/17/21 mcg-formot 4.8 mcg/actuation HFA inhaler (Breztri Aerosphere) mepolizumab 100 mg subcutaneous 100 mg subcut Q4W #1 ea 03/25/21 11/17/21 solution (Nucala) torsemide 20 mg tablet 60 mg PO BID #360 tabs 04/13/21 12/17/21 isosorbide mononitrate 30 mg 30 mg PO DAILY angina #90 tabs 04/16/21 12/17/21 tablet,extended release 24 hr losartan 25 mg tablet 25 mg PO DAILY #90 tabs 04/16/21 12/17/21 epinephrine 0.3 mg/0.3 mL 0.3 mg (0.3 mL) IM ONCE PRN 04/22/21 11/17/21 injection, auto-injector (EpiPen anaphylaxis #2 ea 2-Kirill) potassium chloride 20 mEq 20 meq PO DAILY 07/01/21 12/17/21 tablet,extended release(part/cryst) (Klor-Con M) cholestyramine (with sugar) 4 gram 4 pwd PO DAILY 11/17/21 12/17/21 oral powder prednisone 5 mg tablet 3 mg PO DAILY 11/17/21 12/17/21 polyethylene glycol 3350 17 gram 17 g PO PRN PRN 12/17/21 12/17/21 oral powder packet sennosides 8.6 mg tablet (Senokot) 17.2 mg PO PRN PRN 12/17/21 12/17/21 Previous Rx's Medication Instructions Recorded theophylline 400 mg 200 mg PO DAILY #45 tabs 12/16/20 tablet,extended release 24 hr budesonide 160 mcg-glycopyr 9 2 inh inhalation BID #10.7 grams 03/18/21 mcg-formot 4.8 mcg/actuation HFA inhaler (Breztri Aerosphere) mepolizumab 100 mg subcutaneous 100 mg subcut Q4W #1 ea 03/25/21 solution (Nucala) torsemide 20 mg tablet 60 mg PO BID #360 tabs 04/13/21 isosorbide mononitrate 30 mg 30 mg PO DAILY angina #90 tabs 04/16/21 tablet,extended release 24 hr losartan 25 mg tablet 25 mg PO DAILY #90 tabs 04/16/21 epinephrine 0.3 mg/0.3 mL 0.3 mg (0.3 mL) IM ONCE PRN 04/22/21 injection, auto-injector (EpiPen anaphylaxis #2 ea 2-Kirill) Allergies Allergy/AdvReac Type Severity Reaction Status Date / Time adhesive Allergy Verified 12/17/21 06:53 egg Allergy Verified 12/17/21 06:53 gluten Allergy Verified 12/17/21 06:53 Influenza Virus Vaccines Allergy Verified 12/17/21 06:53 pork derived (porcine) Allergy Verified 12/17/21 06:53 warfarin [From Coumadin] Allergy Verified 12/17/21 06:53 dapsone AdvReac dizziness, Verified 12/17/21 06:53 headache, nausea dairy Allergy Uncoded 12/17/21 06:53 tape Allergy Uncoded 12/17/21 06:53 General WESLEY: 4 Review of Systems <Memo Velez MD - Last Filed: 12/18/21 15:19> Narrative: 03/12 Review of Systems completed and is negative except as stated above in HPI (Systems reviewed: Const, Eyes, ENT, Resp, CV, GI, , MSK, Skin, Neuro) PFSH <Memo Velez MD - Last Filed: 12/18/21 15:19> All Active Problems (Updated 12/17/21 @ 18:40 by Simone Wade MD) Discharge planning issues (Acute) DVT prophylaxis (Acute) COVID (Acute) Pneumonia (Acute) Chronic diastolic heart failure (Acute) Abnormal chest CT (Acute) Asthma (Chronic) Left ankle sprain (Acute) Chronic osteomyelitis of left hand including fingers (Acute) Cellulitis of left middle finger (Acute) Falls (Acute) Palliative care patient (Acute) DNI (do not intubate) (Acute) DNR (do not resuscitate) (Acute) POLST (Physician Orders for Life-Sustaining Treatment) (Acute) Generalized body aches (Acute) Hypokalemia (Acute) Discharge planning issues (Acute) Pulmonary fibrosis, unspecified (Chronic) DVT prophylaxis (Acute) Bullous pemphigoid (Chronic) Acute on chronic diastolic CHF (congestive heart failure), NYHA class 1 (Chronic) Gait abnormality (Acute) Peripheral neuropathy (Acute) Abnormal CT scan of lung (Acute) Malfunction of cardiac pacemaker (Acute) St Eric Strabismus (Acute) Adrenal insufficiency (Chronic) Hyperpigmentation (Acute) Advance directive on file (Acute) Hypercalcemia (Chronic) Presence of permanent cardiac pacemaker (Chronic) PAF (paroxysmal atrial fibrillation) (Chronic) History of thoracic aortic aneurysm repair (Chronic) Hypertension (Chronic) Pulmonary hypertension (Chronic) Asthma (Chronic) CKD (chronic kidney disease) (Chronic) Medical History Asthma Atrial fibrillation CHF (congestive heart failure) Chronic kidney disease COPD (chronic obstructive pulmonary disease) Depression Gout HTN (hypertension) MRSA cellulitis Pulmonary fibrosis Surgical History H/O thoracic aortic aneurysm repair Family History Mother Heart disease Father Cancer History of cancer Brother Heart disease Cancer History of cancer. Social History Smoking/Tobacco Use Status: Never Smoking risk assessment performed?: Yes Alcohol Intake: never Substance use type: does not use Household members: other Details: lives with daughter Orly Keller What type of physical activity do you participate in: none Do you feel safe at home: Yes Do you feel safe in your relationship?: Yes Exam <Memo Velez MD - Last Filed: 12/18/21 15:19> Narrative Exam Narrative: Const: Thin, frail, elderly female in NAD. HEENT: NC/AT. Normal facial exam. Eyes: Bilateral conjunctival injection with left eye mildly purulent drainage Neck: Supple. Trachea midline. Lungs: Tachypneic but not in distress. Right lung with rhonchi and wheezing throughout. Left lung with good air exchange and minimal wheezing. Cor: Tachy, irr/irr without murmur/gallop. Good radial pulses. GI: Soft. NT/ND. No guarding or rebound. Neuro: A+O x 3. Normal speech, mentation, gait. Cranial nerves II - XII grossly intact. No gross motor or sensory deficit. Ext: No C/C/E. Skin: Warm and dry without rash. <Matthieu Rosa MD - Last Filed: 12/17/21 09:30> Critical Care Time Critical Care Time: Yes Total Critical Care Time: 45 (minutes) Attestation: time spent giving IV metoprolol in a patient with afib with rvr and frequent reassessments and hemodynamic monitoring in a patient with potential to det eriorate at any time. Sign Out <Memo Velez MD - Last Filed: 12/18/21 15:19> Sign Out Data: Sign Out Comment: will need admission but labs, imaging, Fluvid pending; daughter aware Last updated by Memo Velez MD at 12/17/21 07:47
[2021-12-17] MEDS: Normal Saline 250 ML 500 ML IV (07:41)
[2021-12-17 07:49] LABS: Abs Immature Grans 0.11 10^3/uL (0.0-0.06); Absolute Basophil Count 0.05 10^3/uL (0.0-0.2); Absolute Lymphocyte Count 0.65 10^3/uL (1.2-3.4); Absolute Neutrophil Count 9.94 10^3/uL (1.2-6.7); Basophils % 0.4; Eosinophils % 0.3; HCT 33.9 % (36.0-46.0); HGB 10.5 g/dL (11.2-15.7); Immature Grans % 0.9; Lymphocytes % 5.6; MCH 30.1 pg (27.0-33.0); MCV 97 fL (80-95); MPV 9.6 fL (8.0-11.0); Monocytes % 7.7; Neutrophils % 85.1; Nucleated RBC 0.2 % (0.0-0.3); Platelet Count 322 10^3/uL (130-400); RBC 3.49 10^6/uL (3.93-5.22); RDW 14.7 % (11.7-14.6); RDW-SD 52.7 fL; WBC 11.68 10^3/uL (4.4-10.8)
[2021-12-17 07:51] LABS: Absolute Eosinophil Count 0.04 10^3/uL (0.0-0.7)
[2021-12-17 08:13] LABS: Influenza A PCR Negative (Negative); Influenza B PCR Negative (Negative); RSV PCR Negative (Negative)
[2021-12-17 08:13] LABS: ALT < 6 U/L (14-59); AST 19 U/L (15-37); Albumin 2.6 g/dL (3.4-5.0); Alkaline Phosphatase 193 U/L (46-116); Anion Gap 9.9 mmol/L (3-11); BUN 44 mg/dL (7-18); Bilirubin, Total 0.5 mg/dL (0.2-1.0); CO2 25.1 mmol/L (21.0-32.0); CREATININE 1.9 mg/dL (0.55-1.02); Calcium 10.8 mg/dL (8.5-10.1); Chloride 100 mmol/L (98-107); Estimated GFR 25.12 (mL/min/1.73m2); Glucose 101 mg/dL (74-106); Sodium 135 mmol/L (136-145); Total Protein 7.8 g/dL (6.4-8.2)
[2021-12-17 08:15] LABS: Troponin I 80 ng/L (<or=60)
[2021-12-17] MEDS: Metoprolol 5 MG/5 ML VIAL 2.5 MG IVP ×3 (08:27→19:26)
[2021-12-17] MEDS: Aspirin 325 MG TAB PO (08:28)
[2021-12-17] MEDS: Metoprolol 25 MG TAB PO ×2 (08:28→23:38)
[2021-12-17 08:33] LABS: COVID-19 PCR Positive (Negative); Source Nasopharynx
[2021-12-17] MEDS: AZITHROMYCIN 500 MG in Normal Saline 250 ML 175 MG IVPB (09:28)
--- NOTE | 2021-12-17 09:36 | NUR.NOTE ---
Nursing Note: Giving azithromycin in 250mL NS over 1.5 hours instead of 1 hour because of Hx of CHF, provider and pharmacist both okayed.
[2021-12-17 09:38] LABS: Bilirubin Negative (Negative); Blood Small (Negative); Clarity Sl Cloudy (Clear); Glucose Negative (Negative); Ketones Negative (Negative); Leukocyte Esterase Moderate (Negative); Nitrite Negative (Negative); Specific Gravity 1.015 (1.005-1.025); Urobilinogen 0.2 EU/dL (Up TO 0.2); pH 5.5 (5-8)
[2021-12-17 10:26] LABS: Bacteria Few HPF (Negative); C & S Indicated? No/Sq. Contamination; Epithelial Cells Many HPF (Negative); WBC 20-50 HPF (0-5)
[2021-12-17 10:27] LABS: Crystals Negative HPF (Negative); Mucus Negative (Negative)
[2021-12-17 12:07] LABS: Troponin I 73 ng/L (<or=60)
[2021-12-17] MEDS: Albuterol HFA 8 GM 60 PUFF INH IH ×2 (15:00→21:33)
--- NOTE | 2021-12-17 15:52 | W.PM.HP.N ---
Date of service: 12/17/21 Time of Service: 15:52 Assessment and Plan Assessment and plan (1) Pneumonia: Status: Acute Assessment and plan: Initially had plan to cover her with Rocephin and azithromycin for community-acquired pneumonia but given her chronic lung disease and spiking fevers and a prior history of MRSA cellulitis I will cover with her both vancomycin as well as Zosyn. Zosyn dose adjusted for renal insufficiency. I put her on scheduled doses of Xopenex MDIs and I have reordered her home inhaler of budesonide/formoterol. I-S and acapella has been added for pulmonary toiletry. Sputum culture as well as urine for strep antigen and Legionella antigen have been ordered. Patient is a DNR/DNI. We will provide supportive care with BiPAP while asleep and high flow nasal cannula while eating. Professional time spent interviewing and examining patient, discussion of goals of care with hospital team (care management, nursing and consulting professionals) was 60 minutes. (2) Chronic diastolic heart failure: Status: Acute Assessment and plan: As it appears that the patient is mildly dehydrated and chosen not to continue her torsemide at that time Erasmo because of acute renal insufficiency we will hold off on her losartan patient received a small fluid bolus in the ED. Given her precarious pulmonary status and COVID infection we will avoid IV rehydration unless she quits drinking. (3) COVID: Status: Acute Assessment and plan: Bebtelovimab monoclonal antibiotic was given in the emergency department. Because of this we will not give her Remdesivir. However given that she has had an oxygen requirement I will start her on Decadron. (4) Pulmonary fibrosis, unspecified: Status: Chronic (5) COPD (chronic obstructive pulmonary disease): Assessment and plan: Schedule beta agonist bronchodilators along with her long-acting LABA/ICS (6) Atrial fibrillation: Assessment and plan: Continue metoprolol but increase the frequency to every 6 hours as. Give as needed IV [place] Lopressor as needed for sustained heart rate greater than 120. Continue apixaban (7) POLST (Physician Orders for Life-Sustaining Treatment): Status: Acute Assessment and plan: Patient is a DNR/DNI. According to Dr. Rosa her POLST form had indicated that she did not want antibiotics however he confirmed with the patient and her family this morning that she does want antibiotics. (8) DVT prophylaxis: Status: Acute Assessment and plan: Patient is chronically on Eliquis we will continue same. (9) Discharge planning issues: Status: Acute Assessment and plan: Disposition will be based on how well the patient response to treatment. History of Present Illness History of Present Illness Chief Complaint: Cough, fever, confusion Narrative: 86-year-old female with a past medical history of pulmonary fibrosis, COPD, heart failure preserved ejection fraction, bullous pemphigoid, peripheral neuropathy, chronic adrenal insufficiency, atrial fibrillation, hypertension, pulmonary hypertension, chronic kidney disease, status post cardiac pacemaker who is a DNR/DNI is brought to the emergency department by her family because generalized weakness and increasing shortness of breath over the past week. She reportedly tested negative for COVID last week at home and was seen by her primary care provider on Tuesday and Tuesday with negative COVID testing. Patient's daughter with whom she lives with tested positive yesterday. This morning patient continued to feel worse at this point home COVID test came back positive. Patient is fully vaccinated and boosted against SARS-CoV-2. Patient work-up in the emergency department where she had routine labs including CBC demonstrated an absolute leukocytosis 11,600 and mild stable chronic anemia hemoglobin 10.5 g, elevated neutrophils of 9900, and absolute lymphocytopenia of 650. CMP shows a stable chronic kidney disease with a BUN of 44 creatinine 1.9 with normal LFTs other than an elevated alkaline phosphatase 193, initial troponin level was elevated at 80 repeat came back at 73 and subsequent third level this afternoon was down to 57. Her procalcitonin level is high at 11.4. Nasal swab for SARS-CoV-2 confirm positivity. Chest x-ray showed increasing patchy infiltrate in the right lung superimposed upon chronic interstitial pattern which has been present since February 2020. Impression is that she is superimposed pneumonia on her chronic interstitial fibrosis. Treatment emergency department clued an IV fluid bolus of 500 mL. She was started on Rocephin 1 g IV and azithromycin 500 mg IV. She was not started on Decadron initially because she was not hypoxic on room air. she was given Bebtelovimab monoclonal antibody. She is admitted for community-acquired pneumonia superimposed upon COVID-19 infection due to recent exposure. While emergency department she was noted to be in rapid atrial fibrillation and did receive both IV and oral metoprolol. Review of Systems Unobtainable due to mental status (Patient is confused unable to give accurate history or review of system) PFSH All Active Problems (Updated 12/17/21 @ 18:40 by Simone Waed MD) Discharge planning issues (Acute) DVT prophylaxis (Acute) COVID (Acute) Pneumonia (Acute) Chronic diastolic heart failure (Acute) Abnormal chest CT (Acute) Asthma (Chronic) Left ankle sprain (Acute) Chronic osteomyelitis of left hand including fingers (Acute) Cellulitis of left middle finger (Acute) Falls (Acute) Palliative care patient (Acute) DNI (do not intubate) (Acute) DNR (do not resuscitate) (Acute) POLST (Physician Orders for Life-Sustaining Treatment) (Acute) Generalized body aches (Acute) Hypokalemia (Acute) Discharge planning issues (Acute) Pulmonary fibrosis, unspecified (Chronic) DVT prophylaxis (Acute) Bullous pemphigoid (Chronic) Acute on chronic diastolic CHF (congestive heart failure), NYHA class 1 (Chronic) Gait abnormality (Acute) Peripheral neuropathy (Acute) Abnormal CT scan of lung (Acute) Malfunction of cardiac pacemaker (Acute) St Eric Strabismus (Acute) Adrenal insufficiency (Chronic) Hyperpigmentation (Acute) Advance directive on file (Acute) Hypercalcemia (Chronic) Presence of permanent cardiac pacemaker (Chronic) PAF (paroxysmal atrial fibrillation) (Chronic) History of thoracic aortic aneurysm repair (Chronic) Hypertension (Chronic) Pulmonary hypertension (Chronic) Asthma (Chronic) CKD (chronic kidney disease) (Chronic) Medical History Asthma Atrial fibrillation CHF (congestive heart failure) Chronic kidney disease COPD (chronic obstructive pulmonary disease) Depression Gout HTN (hypertension) MRSA cellulitis Pulmonary fibrosis Surgical History H/O thoracic aortic aneurysm repair Family History Mother Heart disease Father Cancer History of cancer Brother Heart disease Cancer History of cancer. Social History Smoking/Tobacco Use Status: Never Smoking risk assessment performed?: Yes Alcohol Intake: never Substance use type: does not use Household members: other Details: lives with daughter Orly Keller What type of physical activity do you participate in: none Do you feel safe at home: Yes Do you feel safe in your relationship?: Yes Meds Allergies and Home Medications Allergies Allergy/AdvReac Type Severity Reaction Status Date / Time adhesive Allergy Verified 12/17/21 06:53 egg Allergy Verified 12/17/21 06:53 gluten Allergy Verified 12/17/21 06:53 Influenza Virus Vaccines Allergy Verified 12/17/21 06:53 pork derived (porcine) Allergy Verified 12/17/21 06:53 warfarin [From Coumadin] Allergy Verified 12/17/21 06:53 dapsone AdvReac dizziness, Verified 12/17/21 06:53 headache, nausea dairy Allergy Uncoded 12/17/21 06:53 tape Allergy Uncoded 12/17/21 06:53 Home Medications Medication Instructions Recorded Confirmed Type apixaban 2.5 mg tablet (Eliquis) 2.5 mg PO BID 09/17/16 12/17/21 History metoprolol tartrate 25 mg tablet 25 mg PO BID 09/17/16 12/17/21 History albuterol sulfate 90 mcg/actuation 2 puff inhalation Q4H PRN 10/30/18 12/17/21 History aerosol inhaler (Ventolin HFA) acetaminophen 500 mg tablet 500 mg PO QID PRN 06/15/20 12/17/21 History clonidine HCl 0.1 mg tablet 0.1 mg PO HS 06/16/20 12/17/21 History lidocaine 5 % topical cream 1 applic topical BID PRN 06/18/20 12/17/21 History allopurinol 100 mg tablet 200 mg PO BID 10/29/20 12/17/21 History pantoprazole 40 mg tablet,delayed 40 mg PO BID 10/29/20 12/17/21 History release ferrous gluconate 324 mg (37.5 mg 324 mg PO BID 11/18/20 12/17/21 History iron) tablet theophylline 400 mg 200 mg PO DAILY #45 tabs 12/16/20 12/17/21 Rx tablet,extended release 24 hr budesonide 160 mcg-glycopyr 9 2 inh inhalation BID #10.7 grams 03/18/21 12/17/21 Rx mcg-formot 4.8 mcg/actuation HFA inhaler (Breztri 9flatsphere) mepolizumab 100 mg subcutaneous 100 mg subcut Q4W #1 ea 03/25/21 11/17/21 Rx solution (Nucala) torsemide 20 mg tablet 60 mg PO BID #360 tabs 04/13/21 12/17/21 Rx isosorbide mononitrate 30 mg 30 mg PO DAILY angina #90 tabs 04/16/21 12/17/21 Rx tablet,extended release 24 hr losartan 25 mg tablet 25 mg PO DAILY #90 tabs 04/16/21 12/17/21 Rx epinephrine 0.3 mg/0.3 mL 0.3 mg (0.3 mL) IM ONCE PRN 04/22/21 11/17/21 Rx injection, auto-injector (EpiPen anaphylaxis #2 ea 2-Kirill) potassium chloride 20 mEq 20 meq PO DAILY 07/01/21 12/17/21 History tablet,extended release(part/cryst) (Klor-Con M) cholestyramine (with sugar) 4 gram 4 pwd PO DAILY 11/17/21 12/17/21 History oral powder prednisone 5 mg tablet 3 mg PO DAILY 11/17/21 12/17/21 History polyethylene glycol 3350 17 gram 17 g PO PRN PRN 12/17/21 12/17/21 History oral powder packet sennosides 8.6 mg tablet (Senokot) 17.2 mg PO PRN PRN 12/17/21 12/17/21 History Exam Narrative Exam Narrative: Thin elderly female who is dyspneic with any prolonged conversation she is wearing oxime mask at the present time. HEENT reveals dry mucous membranes neck veins are flat Lungs coarse rales throughout the right lung with some scattered expiratory wheezes Heart is irregular regular tachycardic with a harsh grade 3 systolic murmur over the apex Abdomen is scaphoid soft and nontender Extremities without peripheral cyanosis or edema Skin is warm and dry Results Labs Result diagrams: 12/17/21 07:30 12/17/21 07:30 Labs: Laboratory Results - last 24 hr 12/17/21 12/17/21 12/17/21 07:10 07:30 07:30 WBC 11.68 H RBC 3.49 L Hgb 10.5 L Hct 33.9 L MCV 97 H MCH 30.1 MCHC 31.0 L RDW 14.7 H Plt Count 322 MPV 9.6 Immature Gran % 0.9 Neutrophils % 85.1 Lymphocytes % 5.6 Monocytes % 7.7 Eosinophils % 0.3 Basophils % 0.4 Nucleated RBC % 0.2 Absolute Neutrophils 9.94 H Absolute Lymphocytes 0.65 L Absolute Monocytes 0.90 H Absolute Eosinophils 0.04 Absolute Basophils 0.05 Sodium 135 L Potassium 4.0 Chloride 100 Carbon Dioxide 25.1 Anion Gap 9.9 BUN 44 H Creatinine 1.9 H Estimated GFR/1.73 m2 25.12 Glucose 101 Calcium 10.8 H Magnesium 2.0 Total Bilirubin 0.5 AST 19 ALT < 6 L Alkaline Phosphatase 193 H Troponin I 80 H* Total Protein 7.8 Albumin 2.6 L Urine Color Urine Clarity Urine pH Ur Specific [place] Urine Protein Urine Ketones Urine Blood Urine Nitrite Urine Bilirubin Urine Urobilinogen Ur Leukocyte Esterase Urine RBC Urine WBC Ur Epithelial Cells Urine Crystals Urine Bacteria Urine Mucus Ur Culture Indicated? Urine Glucose COVID-19 Source Nasopharynx SARS-CoV-2 (PCR) Positive A Influenza Type A (PCR) Negative Influenza Type B (PCR) Negative RSV (PCR) Negative 12/17/21 12/17/21 08:50 11:40 WBC RBC Hgb Hct MCV MCH MCHC RDW Plt Count MPV Immature Gran % Neutrophils % Lymphocytes % Monocytes % Eosinophils % Basophils % Nucleated RBC % Absolute Neutrophils Absolute Lymphocytes Absolute Monocytes Absolute Eosinophils Absolute Basophils Sodium Potassium Chloride Carbon Dioxide Anion Gap BUN Creatinine Estimated GFR/1.73 m2 Glucose Calcium Magnesium Total Bilirubin AST ALT Alkaline Phosphatase Troponin I 73 H* Total Protein Albumin Urine Color Yellow Urine Clarity Sl Cloudy Urine pH 5.5 Ur Specific [place] 1.015 Urine Protein Negative Urine Ketones Negative Urine Blood Small H Urine Nitrite Negative Urine Bilirubin Negative Urine Urobilinogen 0.2 Ur Leukocyte Esterase Moderate H Urine RBC 3-5 H Urine WBC 20-50 H Ur Epithelial Cells Many Urine Crystals Negative Urine Bacteria Few Urine Mucus Negative Ur Culture Indicated? No/Sq. Contamination Urine Glucose Negative COVID-19 Source SARS-CoV-2 (PCR) Influenza Type A (PCR) Influenza Type B (PCR) RSV (PCR) Last Vital Signs Temp 37.3 C 12/17/21 14:58 Pulse 76 12/17/21 14:58 Resp 16 12/17/21 14:58 BP 127/65 12/17/21 14:58 Pulse Ox 97 12/17/21 14:58
[2021-12-17 16:35] LABS: Troponin I 57 ng/L (<or=60)
[2021-12-17 17:05] LABS: Procalcitonin 11.4 ng/mL
[2021-12-17] MEDS: Levalbuterol HFA 15 GM INH 2 PUFF IH ×2 (17:46→21:33)
[2021-12-17] MEDS: Acetaminophen 325 MG TAB PO (17:49)
[2021-12-17] MEDS: Normal Saline Flush 10 ML SYR IVP ×2 (18:00→19:27)
[2021-12-17] MEDS: Metoprolol 25 MG TAB (18:00)
[2021-12-17] MEDS: Dexamethasone 10 MG/ML VIAL IVP (19:29)
[2021-12-17] MEDS: Pantoprazole 40 MG TABCR PO (21:32)
[2021-12-17] MEDS: Ferrous Gluconate 324 MG TAB PO (21:32)
[2021-12-17] MEDS: Allopurinol 100 MG TAB 200 MG PO (21:32)
[2021-12-17] MEDS: cloNIDine 0.1 MG TAB PO (21:33)
[2021-12-17] MEDS: Apixaban 2.5 MG TAB PO (21:33)
[2021-12-17] MEDS: VANCOMYCIN 750 MG in Normal Saline 250 ML 166.667 MG IVPB (23:38)
[2021-12-18] VITALS (15 sets, daily range): BP systolic 91–121; BP diastolic 54–79; PULSE 73–111; RESP 16–28; TEMP 35.9–36.8; O2SAT 94–100
[2021-12-18] MEDS: Metoprolol 25 MG TAB PO ×3 (05:52→21:21)
[2021-12-18 07:39] LABS: Abs Immature Grans 0.11 10^3/uL (0.0-0.06); Absolute Basophil Count 0.04 10^3/uL (0.0-0.2); Absolute Lymphocyte Count 0.62 10^3/uL (1.2-3.4); Absolute Monocyte Count 0.24 10^3/uL (0.1-0.8); Absolute Neutrophil Count 12.11 10^3/uL (1.2-6.7); Basophils % 0.3; Immature Grans % 0.8; Lymphocytes % 4.7; MCH 30.2 pg (27.0-33.0); MCHC 31.3 % (32.0-36.0); MCV 97 fL (80-95); MPV 9.5 fL (8.0-11.0); Monocytes % 1.8; Neutrophils % 92.4; Platelet Count 341 10^3/uL (130-400); RBC 3.31 10^6/uL (3.93-5.22); RDW-SD 53.1 fL; WBC 13.11 10^3/uL (4.4-10.8)
[2021-12-18 08:04] LABS: ALT 9 U/L (14-59); AST 18 U/L (15-37); Albumin 2.3 g/dL (3.4-5.0); Alkaline Phosphatase 201 U/L (46-116); Anion Gap 12.4 mmol/L (3-11); BUN 51 mg/dL (7-18); Bilirubin, Total 0.3 mg/dL (0.2-1.0); CO2 22.6 mmol/L (21.0-32.0); Calcium 10.1 mg/dL (8.5-10.1); Chloride 101 mmol/L (98-107); Estimated GFR 23.68 (mL/min/1.73m2); Glucose 122 mg/dL (74-106); Potassium 4.7 mmol/L (3.5-5.1); Sodium 136 mmol/L (136-145); TSH (W/Ref FT4) 1.51 uIU/mL (0.36-3.74); Total Protein 7.3 g/dL (6.4-8.2)
[2021-12-18] MEDS: Ferrous Gluconate 324 MG TAB PO ×2 (08:30→21:20)
[2021-12-18] MEDS: Dexamethasone 4 MG/ML VIAL 6 MG IVP (08:30)
[2021-12-18] MEDS: Isosorbide Mononitrate 30 MG TABCR PO (08:30)
[2021-12-18] MEDS: Apixaban 2.5 MG TAB PO ×2 (08:30→21:20)
[2021-12-18] MEDS: Allopurinol 100 MG TAB 200 MG PO ×2 (08:30→21:20)
[2021-12-18] MEDS: Azithromycin 250 MG TAB PO (08:30)
[2021-12-18] MEDS: Cholestyramine/Aspartame PKT 4 EACH PO (08:30)
--- NOTE | 2021-12-18 09:08 | INITIAL_ITS ---
- If Service Date Differs Date of service: 12/18/21 Time of Service: 09:08 Care Management Initial Assess REASON FOR HOSPITALIZATION:: Covid Pneumonia PAST MEDICAL HISTORY/PAST SURGICAL HISTORY:: All Active Problems (Updated 12/17/21 @ 18:40 by Simone Wade MD). Discharge planning issues (Acute). DVT prophylaxis (Acute). COVID (Acute). Pneumonia (Acute). Chronic diastolic heart failure (Acute). Abnormal chest CT (Acute). Asthma (Chronic). Left ankle sprain (Acute). Chronic osteomyelitis of left hand including fingers (Acute). Cellulitis of left middle finger (Acute). Falls (Acute). Palliative care patient (Acute). DNI (do not intubate) (Acute). DNR (do not resuscitate) (Acute). POLST (Physician Orders for Life-Sustaining Treatment) (Acute). Generalized body aches (Acute). Hypokalemia (Acute). Discharge planning issues (Acute). Pulmonary fibrosis, unspecified (Chronic). DVT prophylaxis (Acute). Bullous pemphigoid (Chronic). Acute on chronic diastolic CHF (congestive heart failure), NYHA class 1 (Chronic). Gait abnormality (Acute). Peripheral neuropathy (Acute). Abnormal CT scan of lung (Acute). Malfunction of cardiac pacemaker (Acute). St Eric. Strabismus (Acute). Adrenal insufficiency (Chronic). Hyperpigmentation (Acute). Advance directive on file (Acute). Hypercalcemia (Chronic). Presence of permanent cardiac pacemaker (Chronic). PAF (paroxysmal atrial fibrillation) (Chronic). History of thoracic aortic aneurysm repair (Chronic). Hypertension (Chronic). Pulmonary hypertension (Chronic). Asthma (Chronic). CKD (chronic kidney disease) (Chronic). Medical History . Asthma. Atrial fibrillation. CHF (congestive heart failure). Chronic kidney disease. COPD (chronic obstructive pulmonary disease). Depression. Gout. HTN (hypertensio n). MRSA cellulitis. Pulmonary fibrosis. Surgical History . H/O thoracic aortic aneurysm repair PREVIOUS FUNCTIONAL STATUS/SOCIAL/FAMILY SUPPORTS:: Antonia lives with her daughter, Orly, in [facility]. Antonia reports she is independent with her most of her ADLs at baseline. She does not drive and depends on Orly for t ransportation. Orly also helps manage her meds and makes meals for her. CURRENT FUNCTIONAL STATUS:: CM spoke with Antonia via phone due to covid precautions. Antonia shares that she is frustrated. She is currently sitting on the commode, with the alarm activated and is waiting for assistance. CM notified nursing and reassured pt [employer] SAL[employer] would in, it may just take a minute as they need to gown up due to covid precautions. ADVANCE DIRECTIVES:: on file, [facility] is khoi Carlos. is Jodee Payton Has patient been provided with info about the portal/API?: Yes Did the patient sign up for the portal?: No CODE STATUS:: DNR/DNI (COLST on file) INSURANCE COVERAGE / FINANCIAL ISSUES:: AARP. Medicare PRIMARY CARE PHYSICIAN:: Cara Doll POTENTIAL DISCHARGE NEEDS:: PCP Follow up, Evaluation for further needs PATIENT/FAMILY EDUCATION NEEDS:: Review discharge instructions, limitations, medications and plan to follow up with community providers. ask me three. TRANSPORTATION:: Via private vehicle by her daughter. PLAN:: Anticipate, Antonia will return home when medically cleared with a new [facility] services, if indicated. Her daughter will drive her home via private vehicle when ready. She will follow up with her PCP and discharge plan of care. CM will continue to follow and support discharge planning considerations.
[2021-12-18] MEDS: Levalbuterol HFA 15 GM INH 2 PUFF IH ×4 (09:14→21:20)
[2021-12-18] MEDS: Pantoprazole 40 MG TABCR PO ×2 (10:30→21:21)
[2021-12-18] MEDS: predniSONE 1 MG TAB 3 MG PO (10:31)
[2021-12-18] MEDS: PIPERACILLIN/TAZO 2.25 GM in Normal Saline 50 ML IVPB ×3 (10:31→23:48)
--- NOTE | 2021-12-18 15:38 | PGE_ITS ---
Date of Service Date of service: 12/18/21 Time of Service: 15:38 Assessment and Plan Assessment and plan (1) Pneumonia: Status: Acute Assessment and plan: cont. Zosyn and azithromycin, IS, acapella. If she continues to improve on her oxygen status then possible dc home tomorrow. Blood cultures had no growth after 24h. Urine strep antigen is pending. Professional time spent interviewing and examining patient, discussion of goals of care with hospital team (care management, nursing and consulting professionals) was 30 minutes. (2) Chronic diastolic heart failure: Status: Acute Assessment and plan: patient appeared dehydrated on admission and therefore her diuretics were witheld. She is now drinking and eating well. BUN and creatinine have not yet recovered. BUN 51 and creatinine 2.0 (baseline creatinine 1.5 to 1.7, BUN 27 to 44). I will continue to withold her diuretics and her losartan. I have reduced her lopressor to 25 mg Q8hr as she has been a bit bradycardic. She was initially in rapid afib when she presented. (3) COVID: Status: Acute Assessment and plan: Bebtelovimab monoclonal antibiotic was given in the emergency department. Becau se of this we will not give her Remdesivir. However given that she has had an oxygen requirement I will start her on Decadron. (4) Pulmonary fibrosis, unspecified: Status: Chronic (5) COPD (chronic obstructive pulmonary disease): Assessment and plan: Schedule beta agonist bronchodilators along with her long-acting LABA/ICS (6) Atrial fibrillation: Assessment and plan: cont. lopressor but at reduced frequ of 25 mg Q8h rather than Q6h. cont. apixaban (7) POLST (Physician Orders for Life-Sustaining Treatment): Status: Acute Assessment and plan: Patient is a DNR/DNI. According to Dr. Rosa her POLST form had indicated that she did not want antibiotics however he confirmed with the patient and her family this morning that she does want antibiotics. (8) DVT prophylaxis: Status: Acute Assessment and plan: Patient is chronically on Eliquis we will continue same. (9) Discharge planning issues: Status: Acute Assessment and plan: Disposition will be based on how well the patient response to treatment but she has improved dramatically overnight. I told the patient and her daughter who phoned into the room that if Antonia continues to improve like this she could potentially go home tomorrow w/ continue oral antibiotics for another 7 days. (probably Augmentin) Subjective Subjective Interval history since last seen: Antonia is doing better today. Her oxygen needs have improved dramatically from yesterday. She is down to 2 LPM and her SPO2 is remaining 98 to 100%. She says that her cough is productive but then she can not get it out but swallows her sputum. She is afebrile. No nausea or vomiting and no chest pain or pressures. Exam Narrative Exam Narrative: Thin elderly female able to talk in complete paragraphs w/out dyspnea Not using her accessory respiratory muscles Lungs: right side w/ course squeaky rales and rhonchi; left side is clear Heart: irregularly irregular but rate is well controlled (per ICU nurses her telemetry has been chronic afib at well controlled rates high 40's to low 50's w/ highest of 78 bpm) Objective Last Vital Signs Temp 35.9 C L 12/18/21 09:52 Pulse 106 H 12/18/21 14:53 Resp 17 12/18/21 09:52 BP 111/72 12/18/21 09:52 Pulse Ox 99 12/18/21 09:52 Laboratory Results - last 24 hr 12/17/21 12/17/21 12/18/21 16:08 16:08 07:17 WBC RBC Hgb Hct MCV MCH MCHC RDW Plt Count MPV Immature Gran % Neutrophils % Lymphocytes % Monocytes % Eosinophils % Basophils % Nucleated RBC % Absolute Neutrophils Absolute Lymphocytes Absolute Monocytes Absolute Eosinophils Absolute Basophils Sodium 136 Potassium 4.7 Chloride 101 Carbon Dioxide 22.6 Anion Gap 12.4 H BUN 51 H Creatinine 2.0 H Estimated GFR/1.73 m2 23.68 Glucose 122 H Calcium 10.1 Magnesium 2.0 Total Bilirubin 0.3 AST 18 ALT 9 L Alkaline Phosphatase 201 H Troponin I 57 Total Protein 7.3 Albumin 2.3 L Procalcitonin 11.4 TSH 1.51 12/18/21 07:17 WBC 13.11 H RBC 3.31 L Hgb 10.0 L Hct 32.0 L MCV 97 H MCH 30.2 MCHC 31.3 L RDW 15.0 H Plt Count 341 MPV 9.5 Immature Gran % 0.8 Neutrophils % 92.4 Lymphocytes % 4.7 Monocytes % 1.8 Eosinophils % 0.0 Basophils % 0.3 Nucleated RBC % 0.0 Absolute Neutrophils 12.11 H Absolute Lymphocytes 0.62 L Absolute Monocytes 0.24 Absolute Eosinophils 0.00 Absolute Basophils 0.04 Sodium Potassium Chloride Carbon Dioxide Anion Gap BUN Creatinine Estimated GFR/1.73 m2 Glucose Calcium Magnesium Total Bilirubin AST ALT Alkaline Phosphatase Troponin I Total Protein Albumin Procalcitonin TSH
[2021-12-18] MEDS: cloNIDine 0.1 MG TAB PO (21:20)
[2021-12-18] MEDS: Albuterol HFA 8 GM 60 PUFF INH IH (21:20)
[2021-12-19] VITALS (7 sets, daily range): BP systolic 120–122; BP diastolic 72–74; PULSE 79–87; RESP 20; TEMP 35.6; O2SAT 95–99
[2021-12-19] MEDS: Metoprolol 25 MG TAB PO (06:42)
[2021-12-19 07:42] LABS: Abs Immature Grans 0.12 10^3/uL (0.0-0.06); Absolute Lymphocyte Count 0.86 10^3/uL (1.2-3.4); Absolute Monocyte Count 0.27 10^3/uL (0.1-0.8); Basophils % 0.1; HCT 30.3 % (36.0-46.0); HGB 9.3 g/dL (11.2-15.7); Immature Grans % 0.8; Lymphocytes % 5.7; MCH 29.9 pg (27.0-33.0); MCHC 30.7 % (32.0-36.0); MCV 97 fL (80-95); MPV 9.4 fL (8.0-11.0); Monocytes % 1.8; Neutrophils % 91.6; Nucleated RBC 0.1 % (0.0-0.3); Platelet Count 392 10^3/uL (130-400); RBC 3.11 10^6/uL (3.93-5.22); RDW 14.9 % (11.7-14.6); RDW-SD 53.2 fL
[2021-12-19 07:49] LABS: Absolute Basophil Count 0.02 10^3/uL (0.0-0.2); Absolute Neutrophil Count 13.83 10^3/uL (1.2-6.7)
[2021-12-19 07:53] LABS: BUN 72 mg/dL (7-18); CREATININE 2.3 mg/dL (0.55-1.02); Calcium 9.8 mg/dL (8.5-10.1); Chloride 101 mmol/L (98-107); Estimated GFR 20.15 (mL/min/1.73m2); Glucose 112 mg/dL (74-106); Sodium 134 mmol/L (136-145)
[2021-12-19 08:15] LABS: Procalcitonin 16.5 ng/mL
[2021-12-19 08:18] LABS: Diff Comment Agrees w/ Instrument; Hypochromasia 1+
[2021-12-19] MEDS: Levalbuterol HFA 15 GM INH 2 PUFF IH (08:46)
[2021-12-19] MEDS: Azithromycin 250 MG TAB PO (09:38)
[2021-12-19] MEDS: Ferrous Gluconate 324 MG TAB PO (09:38)
[2021-12-19] MEDS: Isosorbide Mononitrate 30 MG TABCR PO (09:39)
[2021-12-19] MEDS: Pantoprazole 40 MG TABCR PO (09:39)
[2021-12-19] MEDS: Apixaban 2.5 MG TAB PO (09:39)
[2021-12-19] MEDS: predniSONE 1 MG TAB 3 MG PO (09:40)
[2021-12-19] MEDS: Allopurinol 100 MG TAB 200 MG PO (09:40)
[2021-12-19] MEDS: Normal Saline Flush 10 ML SYR IVP (09:41)
[2021-12-19] MEDS: Cholestyramine/Aspartame PKT 4 EACH PO (09:42)
[2021-12-19] MEDS: Dexamethasone 4 MG/ML VIAL 6 MG IVP (09:42)
[2021-12-19] MEDS: PIPERACILLIN/TAZO 2.25 GM in Normal Saline 50 ML IVPB (10:00)
--- NOTE | 2021-12-19 12:06 | DSE_ITS ---
Date of service: 12/19/21 Time of Service: 12:07 DS: Diagnosis Discharge Diagnosis (1) Pneumonia: Status: Acute Asessment and Plan: Patient was treated with IV azithromycin and Zosyn and vancomycin. Should be discharged home on 7-day course of Augmentin and 3 more days of azithromycin. Blood culture showed no growth. She defervesced after being started on IV antibiotics and has been afebrile now for over 36 hours. Her oxygen requirements have improved to the point she is now on room air with SPO2 in the mid to high 90s. Patient get a follow-up chest x-ray in 2 weeks (2) Chronic diastolic heart failure: Status: Acute Asessment and Plan: Patient is being discharged home on all of her routine cardiac medications except that her metoprolol dose was increased to 25 mg TID for her atrial fibrillation. She will continue on her apixaban and her isosorbide mononitrate and her losartan. Her torsemide was decreased to 60 mg once a day Weight upon discharge 46.8 kg. Discharge BUN 72 creatinine 2.3 necessitating a decrease in her torsemide to once a day. Repeat BMP in 2 weeks (3) COVID: Status: Acute Asessment and Plan: Patient was treated with the monoclonal antibody Bebtelovimab (4) Pulmonary fibrosis, unspecified: Status: Chronic (5) COPD (chronic obstructive pulmonary disease): Asessment and Plan: No change to her COPD medication she will continue her current dose of theophylline as well as her inhalers including her budesonide/glycopyrrolate/formoterol (6) Atrial fibrillation: Asessment and Plan: Continue Eliquis, increase Lopressor to 20 TID (7) POLST (Physician Orders for Life-Sustaining Treatment): Status: Acute Asessment and Plan: Patient remains DNR DNI (8) Discharge planning issues: Status: Acute Asessment and Plan: Patient will return home no new home health services are needed Discharge Plan Disposition Patient Disposition: HOME Condition: Improving Discharge Details Reason For Visit: Pneumonia,COVID Admit Date/Time: 12/17/21 09:16 Admit Provider: Simone Wade Attending Provider: Simone Wade Primary Care Provider: Cara Doll Hospital Course Hospital Course: 86-year-old female with history of IPF, COPD, chronic atrial fibrillation who presents emergency department brought by her family because of generalized weakness and increasing shortness of breath over the past week. Initially tested negative for COVID last week on a home test but was then seen by her primary care provider earlier this week and also tested negative however home test on the day of admission was positive. Patient is fully vaccinated and boosted against SARS-CoV-2. Evaluation emergency department showed a white count of 11,600 with increased PMNs she had stable chronic kidney disease and chest x-ray showed patchy infiltrates in the right lung superimposed upon her chronic interstitial lung pattern. It was felt that she had a community- acquired pneumonia superimposed on COVID-19 infection. As she was not requiring oxygen she was given monoclonal antibody Bebtelovimab on the emergency department she was started on Rocephin and azithromycin. After admission to the medical floor her atrial fibrillation kicked up and she was in rapid atrial fibrillation and very short of breath and was having hypoxemia. Rapid atrial fibrillation was treated with both IV and oral metoprolol she was placed on high flow oxygen started on Decadron. She was placed on bronchodilator MDIs and given Acapella and incentive spirometer to help mobilize sputum. Her white cell count climbed to as high as 15,000 and she had a febrile response on the evening of admission and went to 38.7 but over the next 36 hours she is remained afebrile. After 24 hours of antibiotics her oxygen requirements improved and she was weaned off of oxygen. On the day of discharge her oxygen saturation was 95% on room air she was not short of breath and her atrial fibrillation was reasonably controlled. Her home dose of metoprolol was increased from 25 mg p.o. BID qid but then had to be decreased down to TID because of some bra dycardia issues. At the time of discharge her heart rate was reasonably controlled in the 80s to 90s with heart rates up into the low 100s with activity. She will be discharged home on 7-day course of Augmentin 500 mg p.o. 3 times daily and Lopressor dose was increased to 25 mg 3 times daily. She will follow-up chest x-ray in 2 weeks she will have repeat BMP in 2 weeks. She does have chronic renal insufficiency and initially the emergency department was given some IV fluids but because of her pneumonia and her COVID status we stopped IV fluids. At the time of discharge she was eating and drinking quite well. Her BUN/creatinine was slightly elevated at discharge at 72 and 2.3 therefore repeat BMP will be done in 2 weeks. She is to get a follow-up chest x-ray in 2 weeks and follow-up with her primary care provider in 2 weeks. Patient was instructed that she needs to stay home for the next 7 days because of her COVID status and she should wear a mask anytime family members are around her. Home Meds and New Rx's Prescriptions: New amoxicillin-pot clavulanate [Augmentin] 500-125 mg tablet 1 tab PO TID Qty: 21 0RF azithromycin 250 mg tablet 250 mg PO DAILY AM Qty: 3 0RF Continued albuterol sulfate [Ventolin HFA] 90 mcg/actuation HFA aerosol inhaler 2 puff IH Q4H PRN allopurinol 100 mg tablet 200 mg PO BID epinephrine [EpiPen 2-Kirill] 0.3 mg/0.3 mL auto-injector 0.3 mg IM ONCE PRN (Reason: anaphylaxis) Qty: 2 1RF Rx Instructions: as a single dose cholestyramine (with sugar) 4 gram powder 4 pwd PO DAILY lidocaine 5 % cream 1 applic topical BID PRN ferrous gluconate 324 mg (37.5 mg iron) tablet 324 mg PO BID theophylline 400 mg tablet extended release 24 hr 200 mg PO DAILY Qty: 45 8RF Breztri Aerosphere 160-9-4.8 mcg/actuation HFA aerosol inhaler 2 inh inhalation BID Qty: 10.7 12RF potassium chloride [Klor-Con M20] 20 mEq tablet,ER particles/crystals 20 meq PO DAILY Eliquis 2.5 MG tablet 2.5 mg PO BID clonidine HCl 0.1 mg tablet 0.1 mg PO HS Label Comments: TAKE 1 TABLET BY MOUTH TWICE DAILY Nucala 100 mg recon soln 100 mg subcut Q4W Qty: 1 12RF losartan 25 mg tablet 25 mg PO DAILY Qty: 90 3RF isosorbide mononitrate 30 mg tablet extended release 24 hr 30 mg PO DAILY Qty: 90 3RF pantoprazole 40 mg tablet,delayed release (DR/EC) 40 mg PO BID acetaminophen 500 mg Tablet 500 mg PO QID PRN sennosides [Senokot] 8.6 mg Tablet 17.2 mg PO PRN PRN polyethylene glycol 3350 17 gram Powder In Packet 17 g PO PRN PRN prednisone 1 mg tablet 3 mg PO DAILY Label Comments: TAKE 3 TABLETS BY MOUTH ONCE DAILY Changed torsemide 20 mg tablet 60 mg PO DAILY Qty: 360 6RF Rx Instructions: Take 60 mg po BID metoprolol tartrate 25 MG tablet 25 mg PO TID Qty: 0 0RF Discharge Instructions Instructions: Amoxicillin/Clavulanate Potassium (By mouth), Bacterial Pneumonia (DC), COVID-19 (Coronavirus Disease 2019) (DC), COVID-19 and Chronic Health Conditions (DC), COVID-19 Patient Family Discharge Instructions Additional Instructions: You have a community acquired pneumonia for which you have been on intravenous antibiotics and for which you have been prescribed 7 days of oral antibiotics. Please finish all of the amoxicillin/clavulante (Augmentin). You have also been diagnosed w/ a COVID-19 infection. You were given the monoclonal antibody Bebtelovimab. You should not need any further antibody or antiviral treatment for you Covid infection. You need to stay home and away from other people for the next 7 days. If you have to be around family members please wear a mask around them and have them do the same. Do not congregate in the same room nor sleep in the same room as other family members and if possible use separate bathrooms. Use your incentive spirometer and Acapella device to improve your lung function. Get follow up chest xray in two weeks and see your provider in two weeks. Referrals: Cara Doll [Primary Care Provider] - (call the office on Tuesday for follow up in 2 weeks) Activity:: Activity as Tolerated Equipment/Supplies:: No Equipment Needed Diet:: Normal Diet Discharge Orders Discharge Orders: Discharge Order (Routine); Ordered 12/19/21 Ordered By: Simone Davenport Ambulatory Orders: Basic Metabolic Panel (Routine) Timeframe: 2 Weeks Facility: [facility] - Location: Laboratory Outpatient - [facility] Ordered By: Simone Wade XR chest 2V PA & lateral (Routine) Timeframe: 2 Weeks Facility: [facility] - Location: DIAGNOSTIC IMAGING DEPT Ordered By: Simone Wade DS: Summary Time Spent with Patient providing and/or coordinating discharge services: Greater than 30 minutes Specific discharge activities: Interview/exam of patient; review of discharge instructions, completion of prescriptions/discharge instructions; discussion w/ nursing and CM; documentation of hospital visit Status at Discharge Functional status at discharge: independent ambulation Overall status at discharge: patient is progressing back to baseline Mental Status: mental status grossly normal Speech and Movement: speech and movement normal Mood: congruent mood Affect: normal affect Exam Narrative Exam Narrative: Sitting up in her bed she is alert oriented to person place and circumstance. She did well with her breakfast with no nausea or vomiting and no dyspnea. She denies any chest discomfort. Lungs are clear anteriorly posteriorly she her right side has coarse rales from the base no level left side is clear Heart is irregularly irregular at a controlled rate Abdomen soft nontender Extremities without edema Psych Mental Status: mental status grossly normal Speech and Movement: speech and movement normal Mood: congruent mood Affect: normal affect DS: Data Vitals/I&O Vitals and I&O: Vital Signs Temperature 36.5 C 12/18/21 21:23 Temperature Source Tympanic 12/18/21 21:23 Pulse 87 12/19/21 07:00 Pulse Rhythm Irregular 12/19/21 09:30 Pulse 106 H 12/17/21 09:30 Respiratory Rate 16 12/18/21 21:23 Respiratory Effort 12/19/21 09:30 Respiratory Depth Normal 12/19/21 09:30 Respiratory Pattern Normal 12/19/21 09:30 Blood Pressure 122/74 12/19/21 06:43 Blood Pressure Mean 69 12/17/21 09:30 Blood Pressure Position Sitting 12/17/21 06:25 Pulse Oximetry 95 12/19/21 08:50 Oxygen Delivery Method Room Air 12/19/21 08:50 Oxygen Flow Rate 0 12/19/21 08:50 Fraction of Inspired Oxygen (FIO2) 35 12/18/21 09:16 Pain Level 0 12/18/21 16:42 Comment 12/17/21 18:04 Intake & Output 12/18/21 12/19/21 12/19/21 23:59 11:59 23:59 Intake Total 100 / 400 50 / 50 Output Total 300 / 600 Balance -200 / -200 50 / 50 Intake: IV 100 / 400 50 / 50 Output: Urine 300 / 600 Other: Urine Color Yellow Urine Appearance Clear Stool Size Moderate Stool Characteristics Soft Data Completed and Pending Labs on day of discharge: Labs from last 24 hours 12/19/21 12/19/21 12/19/21 07:10 07:10 07:10 WBC 15.10 H RBC 3.11 L Hgb 9.3 L Hct 30.3 L MCV 97 H MCH 29.9 MCHC 30.7 L RDW 14.9 H Plt Count 392 MPV 9.4 Immature Gran % 0.8 Neutrophils % 91.6 Lymphocytes % 5.7 Monocytes % 1.8 Eosinophils % 0.0 Basophils % 0.1 Nucleated RBC % 0.1 Absolute Neutrophils 13.83 H Absolute Lymphocytes 0.86 L Absolute Monocytes 0.27 Absolute Eosinophils 0.00 Absolute Basophils 0.02 RBC Morphology See Below Hypochromasia 1+ Sodium 134 L Potassium 5.0 Chloride 101 Carbon Dioxide 23.0 Anion Gap 10.0 BUN 72 H Creatinine 2.3 H Estimated GFR/1.73 m2 20.15 Glucose 112 H Calcium 9.8 Procalcitonin 16.5 12/18/21 06:05 Nose MRSA Screen - Pending Preliminary micro results at discharge 12/17/21 08:50 Blood Culture - Preliminary Blood NO GROWTH 48 HOURS 12/17/21 08:35 Blood Culture - Preliminary Blood NO GROWTH 48 HOURS 12/18/21 06:05 MRSA Screen - Pending Nose PFSH All Active Problems (Updated 12/19/21 @ 11:56 by Simone Wade MD) Medication monitoring encounter (Acute) Discharge planning issues (Acute) DVT prophylaxis (Acute) COVID (Acute) Pneumonia (Acute) Chronic diastolic heart failure (Acute) Abnormal chest CT (Acute) Asthma (Chronic) Left ankle sprain (Acute) Chronic osteomyelitis of left hand including fingers (Acute) Cellulitis of left middle finger (Acute) Falls (Acute) Palliative care patient (Acute) DNI (do not intubate) (Acute) DNR (do not resuscitate) (Acute) POLST (Physician Orders for Life-Sustaining Treatment) (Acute) Generalized body aches (Acute) Hypokalemia (Acute) Discharge planning issues (Acute) Pulmonary fibrosis, unspecified (Chronic) DVT prophylaxis (Acute) Bullous pemphigoid (Chronic) Acute on chronic diastolic CHF (congestive heart failure), NYHA class 1 (Chronic) Gait abnormality (Acute) Peripheral neuropathy (Acute) Abnormal CT scan of lung (Acute) Malfunction of cardiac pacemaker (Acute) St Eric Strabismus (Acute) Adrenal insufficiency (Chronic) Hyperpigmentation (Acute) Advance directive on file (Acute) Hypercalcemia (Chronic) Presence of permanent cardiac pacemaker (Chronic) PAF (paroxysmal atrial fibrillation) (Chronic) History of thoracic aortic aneurysm repair (Chronic) Hypertension (Chronic) Pulmonary hypertension (Chronic) Asthma (Chronic) CKD (chronic kidney disease) (Chronic) Medical History Asthma Atrial fibrillation CHF (congestive heart failure) Chronic kidney disease COPD (chronic obstructive pulmonary disease) Depression Gout HTN (hypertension) MRSA cellulitis Pulmonary fibrosis Surgical History H/O thoracic aortic aneurysm repair Family History Mother Heart disease Father Cancer History of cancer Brother Heart disease Cancer History of cancer. Social History Smoking/Tobacco Use Status: Never Smoking risk assessment performed?: Yes Alcohol Intake: never Substance use type: does not use Household members: other Details: lives with daughter Orly Keller What type of physical activity do you participate in: none Do you feel safe at home: Yes Do you feel safe in your relationship?: Yes
--- NOTE | 2021-12-19 17:21 | PDOC.CMDIS ---
- If Service Date Differs Date of service: 12/19/21 Time of Service: 17:21 LACE Index Scoring Tool - Questions: Length of Stay (in days): 2 Acuity (Admit via E.D.?): Yes Comorbidities: Congestive Heart Failure, Liver or Renal Disease E.D. Visits: 1 - Answers: Total Score: 11 Risk of Readmission: High Risk Care Management Discharge Reason for Hospitalization: Covid Pneumonia Discharge Plan: Antonia will return home when medically cleared, her daughter will drive her home via private vehicle when ready. She will follow up with her PCP and discharge plan of care. Patient/Family Education Needs: Review discharge instructions, discuss Ask Me Three.
== END 2021-12-19 13:37 | disposition home or self-care (01) ==
LOC: ER 09:30 → MS 11:26
PROVIDERS: Emergency Medicine; Admitting Provider Internal Medicine; Emergency Provider Emergency Medicine; PCP Nurse Practitioner Family; Visit Provider Internal Medicine
DX: J18.9 Pneumonia, unspecified organism (principal); J44.9 Chronic obstructive pulmonary disease, unspecified; I48.0 Paroxysmal atrial fibrillation; U07.1 COVID-19; I50.32 Chronic diastolic (congestive) heart failure; R53.1 Weakness; R06.02 Shortness of breath; Z66 Do not resuscitate; Z79.01 Long term (current) use of anticoagulants; Z79.899 Other long term (current) drug therapy; E87.6 Hypokalemia; J84.10 Pulmonary fibrosis, unspecified; G62.9 Polyneuropathy, unspecified; L12.0 Bullous pemphigoid; Z95.0 Presence of cardiac pacemaker; I27.20 Pulmonary hypertension, unspecified; E27.40 Unspecified adrenocortical insufficiency; I44.7 Left bundle-branch block, unspecified; E86.0 Dehydration; N18.9 Chronic kidney disease, unspecified; D64.9 Anemia, unspecified; I13.0 Hypertensive heart and chronic kidney disease with heart failure and stage 1 through stage 4 chronic kidney disease, or unspecified chronic kidney disease; R09.02 Hypoxemia; Z86.14 Personal history of Methicillin resistant Staphylococcus aureus infection
CPT/HCPCS: 36415; 80048; 80053; 84145; 87040; 87081; 87637; 93005; 94640; 96361; 96365; 96366; 96367; 96375; 96376; 99291; Q0222; 71045; 81003; 81015; 83735; 84443; 84484; 85025; 87899; 93010; 99217; 99220; 99225; G0378; J0456; J0696; J1100; J2543

== ENCOUNTER → 2022-01-01 00:16 | Outpatient (CLI) | payer MEDICARE, SELFPAY ==
--- NOTE | 2022-01-01 08:31 | DI.RAD_ITS ---
Exam(s) XR CHEST 2V PA LATERAL EXAM: XR CHEST 2V PA LATERAL CLINICAL HISTORY: follow up pneumonia and IPF,S/P COVID 12/18,J18.9,U07.1,J84.10 TECHNIQUE: 2D digital imaging was performed of the chest. Two images were obtained. PA and lateral views were obtained. COMPARISON: CR XR CHEST 2V PA LATERAL from 03/28/2020 CR,XR XR PORTABLE CHEST AP from 06/15/2020 CR XR PORTABLE CHEST AP from 12/17/2021 FINDINGS: MEDIASTINUM: Normal. HEART: Normal. Cardiac pacing wires are stable. PULMONARY VASCULATURE: Normal. LUNGS: There is a persistent volume loss in the right hemithorax. Stable diffuse interstitial diseas e is seen in the right lung. No evidence of a superimposed pneumonia. The right hemithorax lung fin dings have improved since the examination from 12/17/2021. No new infiltrates are seen. PLEURAL SPACE: No pleural effusion or pneumothorax. BONE:Within normal limits for the patient's age. Sternal wires are again seen. OTHER FINDINGS:Normal. IMPRESSION: Overall improved appearance of the lungs since 12/17/2021. DATA REPOSITORY: RADIATION DOSE DELIVERED:
== END ==
PROVIDERS: PCP Nurse Practitioner Family; Visit Provider Internal Medicine
DX: J18.9 Pneumonia, unspecified organism (principal); J84.10 Pulmonary fibrosis, unspecified; U07.1 COVID-19
CPT/HCPCS: 71046

== ENCOUNTER 2022-01-04 18:22 | Outpatient (REF) | payer MEDICARE, SELFPAY ==
[2022-01-04 16:44] LABS: Anion Gap 7.3 mmol/L (3-11); BUN 32 mg/dL (7-18); CO2 28.7 mmol/L (21.0-32.0); CREATININE 1.3 mg/dL (0.55-1.02); Calcium 10.1 mg/dL (8.5-10.1); Chloride 105 mmol/L (98-107); Estimated GFR 38.93 (mL/min/1.73m2); Glucose 74 mg/dL (74-106); Potassium 4.1 mmol/L (3.5-5.1); Sodium 141 mmol/L (136-145)
== END 2022-01-04 18:23 | disposition home or self-care (01) ==
LOC: LBN 18:22
PROVIDERS: PCP Nurse Practitioner Family; Visit Provider Internal Medicine
DX: I50.32 Chronic diastolic (congestive) heart failure (principal); N18.9 Chronic kidney disease, unspecified; Z51.81 Encounter for therapeutic drug level monitoring
CPT/HCPCS: 80048

== ENCOUNTER 2022-01-06 14:59 | Emergency (ER) | payer MEDICARE, SELFPAY ==
[2022-01-06 15:12] VITALS: BP 94/47; PULSE 69; RESP 14; TEMP 36.8; O2SAT 99
--- NOTE | 2022-01-22 13:19 | ED.GENADUL_ITS ---
Discharge Plan Disposition Patient Disposition: ELOPED Discharge Details Chief Complaint: HeadInjury Clinical Impression: Head injury Primary Care Provider: Cara Doll ED Provider: Maricruz Trinidad Home Meds and New Rx's Prescriptions: No Action albuterol sulfate [Ventolin HFA] 90 mcg/actuation HFA aerosol inhaler 2 puff IH Q4H PRN allopurinol 100 mg tablet 200 mg PO BID epinephrine [EpiPen 2-Kirill] 0.3 mg/0.3 mL auto-injector 0.3 mg IM ONCE PRN (Reason: anaphylaxis) Qty: 2 1RF Rx Instructions: as a single dose cholestyramine (with sugar) 4 gram powder 4 pwd PO DAILY lidocaine 5 % cream 1 applic topical BID PRN ferrous gluconate 324 mg (37.5 mg iron) tablet 324 mg PO BID theophylline 400 mg tablet extended release 24 hr 200 mg PO DAILY Qty: 45 8RF Breztri Aerosphere 160-9-4.8 mcg/actuation HFA aerosol inhaler 2 inh inhalation BID Qty: 10.7 12RF potassium chloride [Klor-Con M20] 20 mEq tablet,ER particles/crystals 20 meq PO DAILY Eliquis 2.5 MG tablet 2.5 mg PO BID clonidine HCl 0.1 mg tablet 0.1 mg PO HS Label Comments: TAKE 1 TABLET BY MOUTH TWICE DAILY Nucala 100 mg recon soln 100 mg subcut Q4W Qty: 1 12RF losartan 25 mg tablet 25 mg PO DAILY Qty: 90 3RF isosorbide mononitrate 30 mg tablet extended release 24 hr 30 mg PO DAILY Qty: 90 3RF pantoprazole 40 mg tablet,delayed release (DR/EC) 40 mg PO BID acetaminophen 500 mg Tablet 500 mg PO QID PRN sennosides [Senokot] 8.6 mg Tablet 17.2 mg PO PRN PRN polyethylene glycol 3350 17 gram Powder In Packet 17 g PO PRN PRN prednisone 1 mg tablet 3 mg PO DAILY Label Comments: TAKE 3 TABLETS BY MOUTH ONCE DAILY torsemide 20 mg tablet 60 mg PO DAILY Qty: 360 6RF Rx Instructions: Take 60 mg po BID metoprolol tartrate 25 MG tablet 25 mg PO TID Qty: 0 0RF Discharge Data Discharge Date/Time-TO BE ENTERED AT DEPARTURE: 01/06/22 16:38 Medical Decision Making Antonia Win is an 86 y/o woman presenting to the emergency department with head injury. Pt reports that 2 days ago she lost her balance and fell while getting of a truck, hitting her head on the right side. Pt reports that she did not lose consciousness, had no vomiting. Denies any other injury. Pt states fall was mechanical, no symptoms prior to fall including lightheadedness, palpitations. Pt reports that she has felt well and in her usual state of health since injury. Denies pain, vision changes, SOB, cough, vomiting, diarrhea, numbness, weakness. Pt reports that she told her PCP about fall, who instructed her to come to the emergency department as she takes eliquis for afib. On exam Pt is well and non-toxic appearing. Right parietal scalp hematoma without TTP or crepitus. Normal exam of the c spine. Benign neuro exam. Concern for possible traumatic ICH, skull fracture, other. Exam/hx at this time not c/w meningitis, CVA, ACS, sepsis, acute spine pathology, significant trauma to the neck/trunk/abdomen/extremities, syncope/seizure. Plan for CT head. Pt eloped from the ED per nursing prior to imaging. Medical Records Medical records reviewed: Yes I reviewed the patient's medical records. HPI General Mode of arrival: ambulatory . Date/Time Provider Initiated Documentation: 01/06/22 15:27 . Limitations to Documentation: no limitations . Information obtained by: patient . HPI Narrative: Antonia Win is an 86 y/o woman presenting to the emergency department with head injury. Pt reports that 2 days ago she lost her balance and fell while getting of a truck, hitting her head on the right side. Pt reports that she did not lose consciousness, had no vomiting. Denies any other injury. Pt states fall was mechanical, no symptoms prior to fall including lightheadedness, palpitations. Pt reports that she has felt well and in her usual state of health since injury. Denies pain, vision changes, SOB, cough, vomiting, diarrhea, numbness, weakness. Pt reports that she told her PCP about fall, who instructed her to come to the emergency department as she takes eliquis for afib. Related Data Home Medications Medication Instructions Recorded Confirmed apixaban 2.5 mg tablet (Eliquis) 2.5 mg PO BID 09/17/16 01/21/22 albuterol sulfate 90 mcg/actuation 2 puff inhalation Q4H PRN 10/30/18 01/21/22 aerosol inhaler (Ventolin HFA) acetaminophen 500 mg tablet 500 mg PO QID PRN 06/15/20 01/21/22 clonidine HCl 0.1 mg tablet 0.1 mg PO HS 06/16/20 01/21/22 lidocaine 5 % topical cream 1 applic topical BID PRN 06/18/20 01/21/22 allopurinol 100 mg tablet 200 mg PO BID 10/29/20 01/21/22 pantoprazole 40 mg tablet,delayed 40 mg PO BID 10/29/20 01/21/22 release ferrous gluconate 324 mg (37.5 mg 324 mg PO BID 11/18/20 01/21/22 iron) tablet theophylline 400 mg 200 mg PO DAILY #45 tabs 12/16/20 01/21/22 tablet,extended release 24 hr budesonide 160 mcg-glycopyr 9 2 inh inhalation BID #10.7 grams 03/18/21 01/21/22 mcg-formot 4.8 mcg/actuation HFA inhaler (Breztri Aerosphere) mepolizumab 100 mg subcutaneous 100 mg subcut Q4W #1 ea 03/25/21 01/21/22 solution (Nucala) losartan 25 mg tablet 25 mg PO DAILY #90 tabs 04/16/21 12/18/21 epinephrine 0.3 mg/0.3 mL 0.3 mg (0.3 mL) IM ONCE PRN 04/22/21 01/21/22 injection, auto-injector (EpiPen anaphylaxis #2 ea 2-Kirill) potassium chloride 20 mEq 20 meq PO DAILY 07/01/21 01/21/22 tablet,extended release(part/cryst) (Klor-Con M) cholestyramine (with sugar) 4 gram 4 pwd PO DAILY 11/17/21 12/18/21 oral powder polyethylene glycol 3350 17 gram 17 g PO PRN PRN 12/17/21 01/21/22 oral powder packet sennosides 8.6 mg tablet (Senokot) 17.2 mg PO PRN PRN 12/17/21 01/21/22 prednisone 1 mg tablet 3 mg PO DAILY 12/18/21 01/21/22 metoprolol tartrate 25 mg tablet 25 mg PO TID #0 tab-caps 12/19/21 01/21/22 torsemide 20 mg tablet 60 mg PO DAILY #360 tabs 12/19/21 01/21/22 isosorbide mononitrate 30 mg 30 mg PO DAILY angina #90 tabs 12/28/21 01/21/22 tablet,extended release 24 hr Previous Rx's Medication Instructions Recorded theophylline 400 mg 200 mg PO DAILY #45 tabs 12/16/20 tablet,extended release 24 hr budesonide 160 mcg-glycopyr 9 2 inh inhalation BID #10.7 grams 03/18/21 mcg-formot 4.8 mcg/actuation HFA inhaler (Breztri Aerosphere) mepolizumab 100 mg subcutaneous 100 mg subcut Q4W #1 ea 03/25/21 solution (Nucala) losartan 25 mg tablet 25 mg PO DAILY #90 tabs 04/16/21 epinephrine 0.3 mg/0.3 mL 0.3 mg (0.3 mL) IM ONCE PRN 04/22/21 injection, auto-injector (EpiPen anaphylaxis #2 ea 2-Kirill) metoprolol tartrate 25 mg tablet 25 mg PO TID #0 tab-caps 12/19/21 torsemide 20 mg tablet 60 mg PO DAILY #360 tabs 12/19/21 isosorbide mononitrate 30 mg 30 mg PO DAILY angina #90 tabs 12/28/21 tablet,extended release 24 hr Allergies Allergy/AdvReac Type Severity Reaction Status Date / Time adhesive Allergy Verified 01/21/22 09:37 egg Allergy Verified 01/21/22 09:37 gluten Allergy Verified 01/21/22 09:37 Influenza Virus Vaccines Allergy Verified 01/21/22 09:37 pork derived (porcine) Allergy Verified 01/21/22 09:37 warfarin [From Coumadin] Allergy Verified 01/21/22 09:37 dapsone AdvReac dizziness, Verified 01/21/22 09:37 headache, nausea dairy Allergy Uncoded 01/21/22 09:37 tape Allergy Uncoded 01/21/22 09:37 General Stated Complaint: HeadInjury WESLEY: 4 Review of Systems Narrative: Constitutional: denies fevers Eyes: denies eye pain ENT: denies ear pain, dental pain, sore throat Cardiovascular: denies chest pain Respiratory: denies SOB, cough GI: denies abdominal pain, vomiting, diarrhea : denies flank pain MSK: denies back pain, neck pain, arthralgias, myalgias Skin: denies rash Neuro: denies headaches, numbness, weakness PFSH All Active Problems (Updated 01/22/22 @ 13:30 by Maricruz Trinidad MD) Head injury (Acute) Medication monitoring encounter (Acute) COVID (Acute) Pneumonia (Acute) Chronic diastolic heart failure (Acute) Abnormal chest CT (Acute) Asthma (Chronic) Left ankle sprain (Acute) Chronic osteomyelitis of left hand including fingers (Acute) Cellulitis of left middle finger (Acute) Falls (Acute) Palliative care patient (Acute) DNI (do not intubate) (Acute) DNR (do not resuscitate) (Acute) POLST (Physician Orders for Life-Sustaining Treatment) (Acute) Generalized body aches (Acute) Hypokalemia (Acute) Discharge planning issues (Acute) Pulmonary fibrosis, unspecified (Chronic) DVT prophylaxis (Acute) Bullous pemphigoid (Chronic) Acute on chronic diastolic CHF (congestive heart failure), NYHA class 1 (Chronic) Gait abnormality (Acute) Peripheral neuropathy (Acute) Abnormal CT scan of lung (Acute) Malfunction of cardiac pacemaker (Acute) [place] Strabismus (Acute) Adrenal insufficiency (Chronic) Hyperpigmentation (Acute) Advance directive on file (Acute) Hypercalcemia (Chronic) Presence of permanent cardiac pacemaker (Chronic) PAF (paroxysmal atrial fibrillation) (Chronic) History of thoracic aortic aneurysm repair (Chronic) Hypertension (Chronic) Pulmonary hypertension (Chronic) Asthma (Chronic) CKD (chronic kidney disease) (Chronic) Medical History Asthma Atrial fibrillation CHF (congestive heart failure) Chronic kidney disease COPD (chronic obstructive pulmonary disease) Depression Gout HTN (hypertension) MRSA cellulitis Pulmonary fibrosis Surgical History H/O thoracic aortic aneurysm repair Family History Mother Heart disease Father Cancer History of cancer Brother Heart disease Cancer History of cancer. Social History Smoking/Tobacco Use Status: Never Smoking risk assessment performed?: Yes Alcohol Intake: never Substance use type: does not use Household members: other Details: lives with daughter Orly Keller What type of physical activity do you participate in: none Do you feel safe at home: Yes Do you feel safe in your relationship?: Yes Exam Narrative Exam Narrative: Constitutional: well and [id number], pleasant, conversing normally HENT: head normocephalic, right parietal scalp with small hematoma, no erythema, no skin wound of the scalp, no TTP, mucous membranes moist Eyes: conjunctiva normal, sclera normal, pupils 3mm b/l Neck: no stridor, full painless ROM, no TTP of the cervical spine, trachea midline Chest: normal inspection Resp: normal work of breathing, speaking in full sentences Cardio: normal rate, normal rhythm Skin: warm, dry, normal color, no rash Neuro: alert, not altered, grossly non-focal, normal tone Ext: no edema Psych: normal mood, normal affect, normal behavior Course Vital Signs Vital signs: Vital Signs Temperature 36.8 C 01/06/22 15:12 Pulse 69 01/06/22 15:12 Respiratory Rate 14 01/06/22 15:12 Blood Pressure 94/47 L 01/06/22 15:12 Pulse Oximetry 99 01/06/22 15:12 Temperature 36.8 C 01/06/22 15:12 Temperature Source Temporal Artery Scan 01/06/22 15:12 Pulse 69 01/06/22 15:12 Respiratory Rate 14 01/06/22 15:12 Blood Pressure 94/47 L 01/06/22 15:12 Blood Pressure Position Sitting 01/06/22 15:12 Pulse Oximetry 99 01/06/22 15:12 Oxygen Delivery Method Room Air 01/06/22 15:12 Oxygen Flow Rate 0 01/06/22 15:12 Comment 01/06/22 15:12
== END 2022-01-06 16:38 ==
PROVIDERS: Emergency Provider Student in an Organized Health Care Education/Training Program; PCP Nurse Practitioner Family
DX: S00.03XA Contusion of scalp, initial encounter (principal); I13.0 Hypertensive heart and chronic kidney disease with heart failure and stage 1 through stage 4 chronic kidney disease, or unspecified chronic kidney disease; I50.9 Heart failure, unspecified; N18.9 Chronic kidney disease, unspecified; I48.91 Unspecified atrial fibrillation; J44.9 Chronic obstructive pulmonary disease, unspecified; Z79.51 Long term (current) use of inhaled steroids; W18.30XA Fall on same level, unspecified, initial encounter; W22.8XXA Striking against or struck by other objects, initial encounter
CPT/HCPCS: 99281; 99282

== ENCOUNTER → 2022-01-21 09:23 | Outpatient (BNVA) | payer MEDICARE, SELFPAY | PROVIDERS: PCP Nurse Practitioner Family; Visit Provider Internal Medicine Cardiovascular Disease | DX: R63.4 Abnormal weight loss (principal); R53.83 Other fatigue; I50.32 Chronic diastolic (congestive) heart failure; I10 Essential (primary) hypertension; I48.0 Paroxysmal atrial fibrillation; Z95.0 Presence of cardiac pacemaker | CPT/HCPCS: 99214 ==

== ENCOUNTER 2022-02-23 13:35 | Outpatient (REF) | payer MEDICARE, SELFPAY ==
[2022-02-23 16:44] LABS: ALT 15 U/L (14-59); AST 21 U/L (15-37); Albumin 3.5 g/dL (3.4-5.0); Alkaline Phosphatase 98 U/L (46-116); BUN 44 mg/dL (7-18); Bilirubin, Total 0.3 mg/dL (0.2-1.0); CREATININE 1.6 mg/dL (0.55-1.02); Calcium 10.1 mg/dL (8.5-10.1); Chloride 102 mmol/L (98-107); Estimated GFR 31.21 (mL/min/1.73m2); Glucose 103 mg/dL (74-106); Potassium 3.5 mmol/L (3.5-5.1); Sodium 138 mmol/L (136-145); Total Protein 7.3 g/dL (6.4-8.2)
== END 2022-02-23 13:36 | disposition home or self-care (01) ==
LOC: NCHCN 13:35
PROVIDERS: PCP Nurse Practitioner Family; Visit Provider Physician Assistant Medical
DX: N39.0 Urinary tract infection, site not specified (principal); R42 Dizziness and giddiness
CPT/HCPCS: 80053; 85025; 87086

== ENCOUNTER 2022-02-24 15:08 | Outpatient (REF) | payer MEDICARE, SELFPAY ==
[2022-02-24 16:56] LABS: Abs Immature Grans 0.04 10^3/uL (0.0-0.06); Absolute Basophil Count 0.04 10^3/uL (0.0-0.2); Absolute Eosinophil Count 0.15 10^3/uL (0.0-0.7); Absolute Lymphocyte Count 1.13 10^3/uL (1.2-3.4); Absolute Monocyte Count 0.78 10^3/uL (0.1-0.8); Absolute Neutrophil Count 5.81 10^3/uL (1.2-6.7); Basophils % 0.5; Eosinophils % 1.9; HCT 35.6 % (36.0-46.0); HGB 10.8 g/dL (11.2-15.7); Immature Grans % 0.5; Lymphocytes % 14.2; MCH 30.8 pg (27.0-33.0); MCHC 30.3 % (32.0-36.0); MCV 101 fL (80-95); MPV 10.2 fL (8.0-11.0); Monocytes % 9.8; Neutrophils % 73.1; Platelet Count 207 10^3/uL (130-400); RBC 3.51 10^6/uL (3.93-5.22); RDW 14.9 % (11.7-14.6); RDW-SD 55.8 fL; WBC 7.95 10^3/uL (4.4-10.8)
== END 2022-02-24 15:09 | disposition home or self-care (01) ==
LOC: NCHCN 15:08
PROVIDERS: PCP Nurse Practitioner Family; Visit Provider Physician Assistant Medical
DX: R42 Dizziness and giddiness (principal)
CPT/HCPCS: 85025

== ENCOUNTER 2022-03-11 16:01 | Outpatient (REF) | payer MEDICARE, SELFPAY ==
[2022-03-11 14:55] LABS: Abs Immature Grans 0.13 10^3/uL (0.0-0.06); Absolute Eosinophil Count 0.57 10^3/uL (0.0-0.7); Absolute Monocyte Count 1.18 10^3/uL (0.1-0.8); Basophils % 0.4; HCT 32.3 % (36.0-46.0); Immature Grans % 0.7; Lymphocytes % 3.1; MCH 30.4 pg (27.0-33.0); MCV 98 fL (80-95); MPV 10.3 fL (8.0-11.0); Monocytes % 6.2; Neutrophils % 86.6; Platelet Count 218 10^3/uL (130-400); RBC 3.29 10^6/uL (3.93-5.22); RDW 14.8 % (11.7-14.6); RDW-SD 53.8 fL; WBC 19.08 10^3/uL (4.4-10.8)
[2022-03-11 15:01] LABS: Absolute Basophil Count 0.08 10^3/uL (0.0-0.2); Absolute Lymphocyte Count 0.59 10^3/uL (1.2-3.4); Absolute Neutrophil Count 16.52 10^3/uL (1.2-6.7)
[2022-03-11 15:35] LABS: Anion Gap 9.5 mmol/L (3-11); BUN 42 mg/dL (7-18); CO2 25.5 mmol/L (21.0-32.0); Calcium 10.4 mg/dL (8.5-10.1); Chloride 96 mmol/L (98-107); Estimated GFR 23.88 (mL/min/1.73m2); Glucose 112 mg/dL (74-106); Potassium 4.4 mmol/L (3.5-5.1); Sodium 131 mmol/L (136-145)
== END 2022-03-11 16:02 | disposition home or self-care (01) ==
LOC: NCHCN 16:01
PROVIDERS: PCP Nurse Practitioner Family; Visit Provider Nurse Practitioner Family
DX: R19.7 Diarrhea, unspecified (principal); N18.4 Chronic kidney disease, stage 4 (severe); R42 Dizziness and giddiness
CPT/HCPCS: 80048; 85025

== ENCOUNTER 2022-03-12 11:41 | Outpatient (REF) | payer MEDICARE, SELFPAY | END 2022-03-12 11:42 | disposition home or self-care (01) | LOC: NCHCN 11:41 | PROVIDERS: PCP Nurse Practitioner Family; Visit Provider Nurse Practitioner Family | DX: R41.0 Disorientation, unspecified (principal); R53.83 Other fatigue; R32 Unspecified urinary incontinence | CPT/HCPCS: 87077; 87086; 87186 ==

== ENCOUNTER 2022-04-16 14:54 | Outpatient (REF) | payer MEDICARE, SELFPAY ==
[2022-04-16 16:08] LABS: Anion Gap 5.1 mmol/L (3-11); BUN 34 mg/dL (7-18); CO2 30.9 mmol/L (21.0-32.0); CREATININE 1.4 mg/dL (0.55-1.02); Calcium 10.6 mg/dL (8.5-10.1); Chloride 102 mmol/L (98-107); Estimated GFR 36.64 (mL/min/1.73m2); Glucose 91 mg/dL (74-106); Sodium 138 mmol/L (136-145)
== END 2022-04-16 14:55 | disposition home or self-care (01) ==
LOC: NCHCN 14:54
PROVIDERS: PCP Nurse Practitioner Family; Visit Provider Nurse Practitioner Family
DX: I50.9 Heart failure, unspecified (principal); N18.4 Chronic kidney disease, stage 4 (severe)
CPT/HCPCS: 80048

== ENCOUNTER → 2022-04-20 10:06 | Outpatient (BNVA) | payer MEDICARE, SELFPAY | PROVIDERS: PCP Nurse Practitioner Family; Visit Provider Internal Medicine Cardiovascular Disease | DX: I50.32 Chronic diastolic (congestive) heart failure (principal); I10 Essential (primary) hypertension; I48.0 Paroxysmal atrial fibrillation; Z95.0 Presence of cardiac pacemaker | CPT/HCPCS: 99214 ==